=== PATIENT | female | born 1960 | race Caucasian/White ===

== ENCOUNTER 2018-01-12 07:25 | Day surgery (SDC) | payer BC, SELFPAY ==
[2018-01-12 07:37] VITALS: BP 115/82; PULSE 74; RESP 14; TEMP 35.9; O2SAT 100; BMI 21.0
--- NOTE | 2018-01-12 08:26 | PCM.OPRPT ---
Problem List (1) Chronic anemia Status: Chronic (2) Peptic ulcer disease Status: Chronic (3) Acute blood loss anemia Status: Acute Report of Operation Date of Procedure: 01/12/18 Pre-Operative Diagnosis: D 64.9 chronic anemia. K 27.9 peptic ulcer disease. D 62 anemia due to blood loss Post-Operative Diagnosis: Same Surgery/Procedure Performed:: 02104 esophagogastrojejunoscopy Type of Anesthesia:: MAC Anesthesiologist: Dev He Description of Procedure: Patient was brought into the endoscopy suite. Back of her throat was sprayed with Cetacaine spray. A bite-block was placed. She was placed in the left lateral decubitus position. She was given graded anesthesia. The scope was inserted into the oropharynx. It was directed down through the esophagusInto the stomach remnant and into both the afferent and efferent limbs of the jejunum. Operative findings: 1. Jejunum: Both limbs of the jejunum appeared normal there were no signs of any mass lesions no signs of ulcerations no signs of any bleeding. 2. Stomach the juncture between the jejunum and stomach all look normal. There was no signs of any marginal ulcers. There were no mass lesions. There is no signs of any recent bleeding. The rest of the stomach remnant all look normal. 3. Esophagus: Normal appearance no mass lesions no ulcerations no signs of erythema. No signs of recurrent marginal ulcers or masslike lesions. Patient is to continue her current proton pump therapy. - Admit VTE Documentation VTE Present on Admission: No VTE Mechan Device Prophylaxis: None VTE Pharm Prophylaxis ordered?: No Reason prophylaxis not ordered:: Treatment Not Indicated
[2018-01-12 08:45] VITALS: BP 115/80; BP 115/82; PULSE 66; RESP 17; TEMP 36.9; O2SAT 98
[2018-01-12 08:50] VITALS: BP 115/82; BP 120/74; PULSE 72; RESP 16; O2SAT 99
[2018-01-12 08:55] VITALS: BP 104/72; BP 115/82; PULSE 59; RESP 16; O2SAT 100
[2018-01-12 09:00] VITALS: BP 105/72; BP 115/82; PULSE 72; RESP 16; TEMP 36.3; O2SAT 68
[2018-01-12 09:15] VITALS: BP 115/82
== END 2018-01-12 09:24 | disposition home or self-care (01) ==
LOC: EN 07:26 → AC 07:26
PROVIDERS: Family Provider Family Medicine; PCP Family Medicine; Visit Provider Surgery
PROC: 0DJ08ZZ Inspection of Upper Intestinal Tract, Via Natural or Artificial Opening Endoscopic (ICD-10-PCS; CPT 43235; principal; 2018-01-12 08:25)
DX: D64.9 Anemia, unspecified (principal); K27.9 Peptic ulcer, site unspecified, unspecified as acute or chronic, without hemorrhage or perforation; D62 Acute posthemorrhagic anemia; I10 Essential (primary) hypertension; K21.9 Gastro-esophageal reflux disease without esophagitis; H40.9 Unspecified glaucoma; F41.9 Anxiety disorder, unspecified; E03.9 Hypothyroidism, unspecified; G43.909 Migraine, unspecified, not intractable, without status migrainosus
CPT/HCPCS: 43235; J7120

== ENCOUNTER 2018-05-15 03:39 | Emergency (ER) | payer BC, SELFPAY ==
[2018-05-15 03:40] VITALS: BP 151/100; PULSE 84; RESP 16; TEMP 36.5; O2SAT 100; BMI 22.4
--- NOTE | 2018-05-15 03:50 | ED.VISSUMM ---
- ER Visit Summary Date of Service: 05/15/18 Chief Complaint: Migraine headache History of Present Illness: The patient is a 57 F waxing waning migraine headache for the past 3 evenings. Pain frontal and occipital, photo and phonophobia. Nausea with dry heaves. History of similar. She is on Maxalt as needed. States last 2 evenings used up to 2 with resolution however this evening had one left did not help. No head injuries. No fevers. No more stress than normal. States has been given Imitrex subcutaneous with improvement in the past. History of gastric bypass with GI ulcers. Physical Examination: General: Alert and oriented ?3, mild distress HEENT: Normocephalic, atraumatic. Moist mucosa membranes. Mild photophobia. Pupils equal reactive to light. Extraocular muscles intact. Neck: supple, nontender. No meningismus. Cardiovascular: Regular rate and rhythm, no murmurs Respiratory: Normal breath sounds, symmetric, no distress Abdomen: Soft, nontender, nondistended Extremities: Nontender, no edema, pulses intact ?4 Neuro: no focal neurological deficits. Test Results: [] Emergency Department Course and Treatment: Patient no focal neurologic deficits. No meningismus. Similar headaches in the past. Tried Imitrex subcu, only mild relief of symptoms. IV is placed, Reglan, Benadryl with IV fluids. Symptoms much more improved and tolerable. Patient discharged home with outpatient follow-up. Short refill for Maxalt was written. Treatment Plan: [] Disposition: Discharge Impression: Migraine headache This note was generated with [employer] dictation software. It may contain incorrect words, spelling, and punctuation that were not noted in review of the chart prior to signing ED Disposition - Plan for ED Patient: Disposition: Home or Assisted Living Chief Complaint: Headache Diagnosis: Migraine Instructions: ED Headache Migraine Prescriptions: Rizatriptan Benzoate [Maxalt] 10 mg PO .X1 PRN #6 tablet Referrals: Angelo Ruggiero MD [Primary Care Provider] - 3-5 Days
[2018-05-15] MEDS: SUMAtriptan 6 MG/0.5 ML Vial SC (03:55)
[2018-05-15] MEDS: 0.9% Normal Saline 1,000 ML 999 ML IV (04:27)
[2018-05-15] MEDS: Metoclopramide 10 MG/2 ML Vial IV (04:27)
[2018-05-15] MEDS: DiphenhydrAMINE 50 MG/ML Syringe 25 MG IV (04:28)
[2018-05-15 05:18] VITALS: BP 123/86; PULSE 81; RESP 16; O2SAT 99
== END 2018-05-15 05:22 | disposition home or self-care (01) ==
PROVIDERS: Emergency Provider Emergency Medicine; Family Provider Family Medicine; PCP Family Medicine
DX: G43.909 Migraine, unspecified, not intractable, without status migrainosus (principal); E03.9 Hypothyroidism, unspecified; K21.9 Gastro-esophageal reflux disease without esophagitis; Z79.899 Other long term (current) drug therapy; Z87.11 Personal history of peptic ulcer disease; Z86.2 Personal history of diseases of the blood and blood-forming organs and certain disorders involving the immune mechanism; Z98.84 Bariatric surgery status
CPT/HCPCS: 96361; 96372; 96374; 96375; 99282; J7030; A4216; J3030

== ENCOUNTER → 2019-05-09 12:15 | Outpatient (CLI) | payer BC, SELFPAY ==
[2019-05-09 13:00] LABS: Erythrocyte Sedimentation Rate 1 mm/hr (0-30)
== END ==
PROVIDERS: Family Provider Family Medicine; PCP Family Medicine; Referring Provider Psychiatry & Neurology Neurology; Visit Provider Psychiatry & Neurology Neurology
DX: R51 Headache (principal)
CPT/HCPCS: 36415; 85652

== ENCOUNTER → 2019-06-16 08:47 | Outpatient (CLI) | payer BC, SELFPAY ==
--- NOTE | 2019-06-16 08:55 | CDU_ITS ---
Reason For Study: RETINAL/VASCULAR OCCLUSION Rt. Velocities/BP Lt. Velocities/BP Prox CCA 54/10 cm/sec. Prox CCA 71/20 cm/sec. Mid CCA 62/20 cm/sec. Mid CCA 76/27 cm/sec. Dist CCA 54/21 cm/sec. Dist CCA 72/24 cm/sec. Prox ICA 74/30 cm/sec. Prox ICA 79/35 cm/sec. Mid ICA 91/40 cm/sec. Mid ICA 75/36 cm/sec. Dist ICA 85/37 cm/sec. Dist ICA 42/18 cm/sec. Rt. ICA/CCA = 1.5. Lt. ICA/CCA = 1.0. Prox ECA 52/12 cm/sec. Prox ECA 47/9 cm/sec. Rt. Vert. 38/15 cm/sec. Lt. Vert. 46/15 cm/sec. Right Extracranial There is intimal thickening but no significant atherosclerotic plaque noted in the right common carotid artery. There is homogeneous, smooth atherosclerotic plaque noted in the right internal carotid artery. There is homogeneous, smooth atherosclerotic plaque noted in the right external carotid artery. Antegrade flow is noted in the right vertebral artery. Left Extracranial There is homogeneous, smooth atherosclerotic plaque noted in the left common carotid artery. There is homogeneous, smooth atherosclerotic plaque noted in the left internal carotid artery. There is homogeneous, smooth atherosclerotic plaque noted in the left external carotid artery. Antegrade flow is noted in the left vertebral artery. Procedure Carotid Duplex [id number]. Exam performed in department. Interpretation Summary Mild (<50%) stenosis right extracranial internal carotid. Mild (<50%) stenosis left extracranial internal carotid. Flow within the vertebral arteries is antegrade bilaterally. Ordering Physician: Michael Tellez Referring Physician: EUGENE SANCHEZ Performed By: Karol Leger, ZAN, RVT
== END ==
PROVIDERS: Family Provider Family Medicine; PCP Family Medicine; Referring Provider Ophthalmology; Visit Provider Ophthalmology
DX: H34.9 Unspecified retinal vascular occlusion (principal)
CPT/HCPCS: 93880

== ENCOUNTER → 2019-06-19 06:25 | Outpatient (CLI) | payer BC, SELFPAY ==
--- NOTE | 2019-06-19 06:35 | MRI_ITS ---
STUDY: MRI BRAIN WITHOUT CONTRAST REASON FOR EXAM: Female, 58 years old. Increasing frequency and severity of headaches. TECHNIQUE: Standardized multiplanar fat and water weighted pulse sequences were obtained. COMPARISON: 09/07/2008. FINDINGS: Normal size of the ventricles and extra-axial spaces for the patient's age. Normal white matter tracts of the supratentorial brain. Normal bilateral basal ganglia. Normal thalami. There is no extra-axial fluid accumulation. Normal flow voids within the major intracranial circulation suggesting patency by spin echo criteria. Normal sella turcica, pituitary gland, infundibular stalk, optic chiasm and hypothalamus. Normal tectal plate and pineal gland. Normal midbrain, pema and medulla. Normal cerebellum. Normal basal cisterns. Normal bilateral temporal bones. Normal bilateral internal auditory canals. No demonstrated orbital abnormality, within the constraints of a routine brain study. Normal visualized paranasal sinuses. Normal calvarium and skull base. Normal visualized soft tissue structures. Normal visualized upper cervical spine. MRI/Brain without Contrast IMPRESSION: Normal unenhanced MRI of the brain and unchanged since 09/07/2008. Electronically Signed: Ramon Vo MD at 10:22 EST , Service support ,
== END ==
PROVIDERS: Family Provider Family Medicine; PCP Family Medicine; Referring Provider Psychiatry & Neurology Neurology; Visit Provider Psychiatry & Neurology Neurology
DX: R51 Headache (principal)
CPT/HCPCS: 70551

== ENCOUNTER → 2019-06-22 13:45 | Outpatient (CLI) | payer BC, SELFPAY ==
--- NOTE | 2019-06-22 13:51 | ECHOD_ITS ---
Reason For Study: UNSPECIFIED RETINAL VASCULAR OCCLUSION Procedure This was a 2D Doppler, Color Flow transthoracic echocardiogram. Exam performed in department. Left Ventricle Normal LV size. The estimated ejection fraction is 55 %. No evidence for diastolic dysfunction. No regional wall motion abnormalities noted. Right Ventricle Normal RV size. Normal systolic function. Atria The left atrium is mildly enlarged. Normal right atrium. Bubble contrast study negative for right to left interatrial shunt. Mitral Valve There is no mitral valve stenosis. Trivial mitral valve insufficiency. Tricuspid Valve There is no tricuspid stenosis. Trivial tricuspid valve insufficiency. Normal pulmonary artery pressure. Aortic Valve Trisinus/trileaflet aortic valve. There is no aortic stenosis. Trivial aortic valve insufficiency. Pulmonic Valve There is no pulmonic valvular stenosis. No pulmonic valve insufficiency. Great Vessels Normal aortic root. Pericardium/Pleural No pericardial effusion. Medication 22 gauge I.V. with prn adaptor inserted into right arm. Performed a rapid injection of agitated mix of 9 cc saline and 1cc air to assess for atrial septal defect. MMode/2D Measurements & Calculations LVIDd: 4.8 cm IVSd: 1.1 cm LVOT diam: 2.0 cm LVIDs: 2.9 cm LVPWd: 0.99 cm RVDd: 2.8 cm FS: 38.5 % LVOT area: 3.0 cm2 Ao root diam: 3.4 cm LAV(MOD-bp): 62.2 ml LA A4 area: 16.9 cm2 LAV(MOD-bp) Indexed: 38.6 ml/m2 LAV(MOD-sp2): 59.1 ml LAV(MOD-sp4): 51.9 ml LA dimension(2D): 3.7 cm RA A4 area: 9.7 cm2 Time Measurements MV dec time: 0.18 sec Doppler Measurements & Calculations MV E max joe: 88.2 cm/sec Lat Peak E' Joe: 8.2 cm/sec Med Peak E' Joe: 5.6 cm/sec MV A max joe: 64.5 cm/sec E/E' lat: 10.8 E/E' med: 15.9 MV E/A: 1.4 Ao V2 max: 113.8 cm/sec LV V1 max: 86.2 cm/sec SV(LVOT): 56.1 ml Ao max P.2 mmHg LV V1 max P.0 mmHg Ao V2 mean: 82.4 cm/sec LV V1 mean P.6 mmHg Ao mean P.0 mmHg LV V1 mean: 60.9 cm/sec Ao V2 VTI: 23.9 cm LV V1 VTI: 18.6 cm MAXWELL(I,D): 2.3 cm2 MAXWELL(V,D): 2.3 cm2 PA V2 max: 71.8 cm/sec TR max joe: 240.1 cm/sec TR max P.1 mmHg Interpretation Summary The estimated ejection fraction is 55 %. No evidence for diastolic dysfunction. Trivial aortic valve insufficiency. Trivial mitral valve insufficiency. Bubble contrast study negative for right to left interatrial shunt. Ordering Physician: Michael Tellez Referring Physician: Timoteo Ruggiero Performed By: Elva Murrieta RDCS, RVT
== END ==
PROVIDERS: Family Provider Family Medicine; PCP Family Medicine; Referring Provider Ophthalmology; Visit Provider Ophthalmology
DX: H34.9 Unspecified retinal vascular occlusion (principal)
CPT/HCPCS: 93306; A4216

== ENCOUNTER → 2019-07-26 11:37 | Outpatient (CLI) | payer BC, SELFPAY ==
[2019-07-26 08:36] VITALS: BMI 23.7
== END ==
PROVIDERS: Family Provider Family Medicine; PCP Family Medicine; Referring Provider Internal Medicine Cardiovascular Disease; Visit Provider Internal Medicine Cardiovascular Disease
DX: H34.83 Tributary (branch) retinal vein occlusion (principal)
CPT/HCPCS: 93225; 93226

== ENCOUNTER 2020-03-01 07:00 | Outpatient (RCR) | payer BC, SELFPAY ==
[2019-07-26 08:36] VITALS: BMI 23.7
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
--- NOTE | 2019-11-30 10:58 | HP.PTREVAL ---
ARTURO BOYCE, It has been my pleasure to treat TOMAS Anthony OLDER over the last 9 visits for R femur fracture.. Please see the progress note below for an update on the physical therapy plan of care! Subjective: New script received for TTWB on 12/28/19 and strenthening against gravity. Doing gym workout starting at 0930 I today. Ambulating with wh walker mod I at home, steps with husbands supervision limited with crutch adn rail but not confident yet. Objective/Function: 104/107 A/PROM R knee. Full extension. 2 degree lag with SLR. Walking with walker NWB R. steps with one crutcha dn one railing today NWB R per doctor order with SBA for safety. 4-/5 hip strength today R hip and 4/5 L. Patella moving better with some distal limitations vs L and very little palpable scar tissue under multiple incisions.pT DOING WELL AND PROGRESSING TO SATISFACTION LIMITED CURRENTLY BY wb RESTRICTIONS. Plan Plan: 2x/week for 4 weeks for continued manual therapy for PROM, ROM progressions and ensure progression of home strength and gym strength until restrictions of NWB removed 12/27 to TTWB. Goals still appropriate, fair prognosis Goals Goal 1:: R knee AROM 0-115 without excessive pain. Goal Time Frame: 4-6 Weeks Goal Progress: Progressing,a pprop Goal 2:: I LE strength adn UE strength ex via HEP Goal Time Frame: 4-6 Weeks Goal Progress: NWB met Goal 3:: Patient able to be mobile through house including steps safe and I with in restirctions. Goal Time Frame: 4-6 Weeks Goal Progress: met except steps Goal 4:: Pt able to ambulate I without gait deviations once allowed by surgeon. Goal Time Frame: 12-16 Weeks Goal Progress: approp Goal 5:: Steps reciprocally withotu rail. Goal Time Frame: 12-16 Weeks Goal Progress: restircted. Goal 6:: Pt feel 50% improved Goal Time Frame: 4-6 Weeks Goal Progress: Progressing Anticipated Interventions Patient/Client Instruction: Educate patient on: Condition, Plan of Care For the Purpose of:: To decrease pain, To improve muscle performance and motor function, To improve ability of physical actions for home/community/work/leisure Therapeutic Exercise to Include: Strength training, Coordination, Postural training, Flexibilty training, Gait and locomotor training, Neuromotor development, Passive ROM, Active ROM, Dynamic Lumbar Stabilization For the Purpose of:: To decrease pain, To increase ROM, To improve muscle performance and motor function, To increase tolerance to activity/condition/position, To improve ability of physical actions for home/community/work/leisure, To improve gait and locomotor functions, To improve safety Manual Therapy Techniques to Include: Petrissage, Scar massage, Mobilization, Passive ROM, Soft tissue mobilization For the Purpose of:: To decrease pain, To increase ROM, To improve muscle performance and motor function, To increase tolerance to activity/condition/position Cryotherapy (ice pack, ice massage): Yes For the Purpose of:: To decrease pain, To decrease swelling/inflammation Please do not hesitate to contact me at [phone] by phone or if you have questions or concerns regarding this new plan of care! Sincerely, Hussein Lund, DPT, OCS, CSCS
--- NOTE | 2019-12-12 11:05 | HP.PTREVAL_ITS ---
ARTURO BOYCE, It has been my pleasure to treat TOMAS Anthony OLDER over the last 12 visits for R femur fracture.. Please see the progress note below for an update on the physical therapy plan of care! Subjective: gym closed due to floor cleaning. 2/10 pain normal today but was outside a lot yesterday. Objective/Function: 0-115 AROM R knee, PROM 0-118 degrees. Walking better with crutches SBA one lap today without problems. Steps with SBA today. Does not quite have the confidence to use crutches on own but improving. Mod I with wa lker. Overall patient will not be TTWB until December 28 according to script. Needs to gain more motion and continue to improve strength until WB is allowed. Progressing nicely. Appropriate for more visits. Plan Plan: 2x/week x 4-6 weeks for gait progression as allowed, continued ROM.manual until full ROM R knee and strengthen as allowed by doctors orders. Goals Goal 1:: R knee AROM 0-115 without excessive pain. Goal Time Frame: 4-6 Weeks Goal Progress: Progressing,a pprop Goal 2:: I LE strength adn UE strength ex via HEP Goal Time Frame: 4-6 Weeks Goal Progress: NWB met Goal 3:: Patient able to be mobile through house including steps safe and I with in restirctions. Goal Time Frame: 4-6 Weeks Goal Progress: met except steps Goal 4:: Pt able to ambulate I without gait deviations once allowed by surgeon. Goal Time Frame: 12-16 Weeks Goal Progress: approp Goal 5:: Steps reciprocally withotu rail. Goal Time Frame: 12-16 Weeks Goal Progress: restircted. Goal 6:: Pt feel 50% improved Goal Time Frame: 4-6 Weeks Goal Progress: Progressing Anticipated Interventions Patient/Client Instruction: Educate patient on: Condition, Plan of Care For the Purpose of:: To decrease pain, To improve muscle performance and motor function, To improve ability of physical actions for home/community/work/leisure Therapeutic Exercise to Include: Strength training, Coordination, Postural training, Flexibilty training, Gait and locomotor training, Neuromotor development, Passive ROM, Active ROM, Dynamic Lumbar Stabilization For the Purpose of:: To decrease pain, To increase ROM, To improve muscle performance and motor function, To increase tolerance to activity/condition/position, To improve ability of physical actions for home/community/work/leisure, To improve gait and locomotor functions, To improve safety Manual Therapy Techniques to Include: Petrissage, Scar massage, Mobilization, Passive ROM, Soft tissue mobilization For the Purpose of:: To decrease pain, To increase ROM, To improve muscle performance and motor function, To increase tolerance to activity/condition/position Cryotherapy (ice pack, ice massage): Yes For the Purpose of:: To decrease pain, To decrease swelling/inflammation Please do not hesitate to contact me at [phone] by phone or if you have questions or concerns regarding this new plan of care! Sincerely, Hussein Lund, DPT, OCS, CSCS
--- NOTE | 2019-12-21 10:16 | HP.PTREVAL ---
ARTURO BOYCE, It has been my pleasure to treat TOMAS Anthony OLDER over the last 14 visits for R femur fracture.. Please see the progress note below for an update on the physical therapy plan of care! Subjective: Slightly more sore than usual at 4/10 medially at knee since last visit. Otherwise doing well, still NWB with walker. Using crutches mostly int herapy. Scooting up steps when needed at home as she is not confident with the crutches on steps or walking at home yet. Objective/Function: Intermittent LOB when walking with crutches and on steps is what is limiting her, mostly she is CGA but intermittent lapses make it Min A due to LOB. Transfers at table are I. AROM 0-117 coming in today and PROM to 123. Strength is 4- flexion adn 3+ ext. Plan Plan: continue 2x/week as pt will ba allowed to TTWB next week and progress gait and WB exercises at that time. Fair prognosis, goals appropriate adn will be updated when TTWB begins. Goals Goal 1:: R knee AROM 0-115 without excessive pain. Goal Time Frame: 4-6 Weeks Goal Progress: Goal Met Goal 2:: I LE strength adn UE strength ex via HEP Goal Time Frame: 4-6 Weeks Goal Progress: NWB met Goal 3:: Patient able to be mobile through house including steps safe and I with in restirctions. Goal Time Frame: 4-6 Weeks Goal Progress: wh walker Goal 4:: Pt able to ambulate I without gait deviations once allowed by surgeon. Goal Time Frame: 12-16 Weeks Goal Progress: soon Goal 5:: Steps reciprocally withotu rail. Goal Time Frame: 12-16 Weeks Goal Progress: restircted. Goal 6:: Pt feel 50% improved Goal Time Frame: 4-6 Weeks Goal Progress: Progressing Anticipated Interventions Patient/Client Instruction: Educate patient on: Condition, Plan of Care For the Purpose of:: To decrease pain, To improve muscle performance and motor function, To improve ability of physical actions for home/community/work/leisure Therapeutic Exercise to Include: Strength training, Coordination, Postural training, Flexibilty training, Gait and locomotor training, Neuromotor development, Passive ROM, Active ROM, Dynamic Lumbar Stabilization For the Purpose of:: To decrease pain, To increase ROM, To improve muscle performance and motor function, To increase tolerance to activity/condition/position, To improve ability of physical actions for home/community/work/leisure, To improve gait and locomotor functions, To improve safety Manual Therapy Techniques to Include: Petrissage, Scar massage, Mobilization, Passive ROM, Soft tissue mobilization For the Purpose of:: To decrease pain, To increase ROM, To improve muscle performance and motor function, To increase tolerance to activity/condition/position Cryotherapy (ice pack, ice massage): Yes For the Purpose of:: To decrease pain, To decrease swelling/inflammation Please do not hesitate to contact me at [phone] by phone or if you have questions or concerns regarding this new plan of care! Sincerely, Hussein Lund, DPT, OCS, CSCS
--- NOTE | 2020-01-05 10:59 | HP.PTREVAL ---
ARTURO BOYCE, It has been my pleasure to treat TOMAS Anthony OLDER over the last 16 visits for R femur fracture.. Please see the progress note below for an update on the physical therapy plan of care! Subjective: Doing OK with pain at 08/25 today. ES helped last time. saw doctor and has been released to WBAT based on symptoms. Has been walking with crutches at home for the most part outside and away and walker still in house. Happy with progress but has long way to go with progressing WB. Objective/Function: AROM R knee 0-124 todaya dn continues to improve with AROM. Able to do LAQ easily and SLR with only slight lag. Progressed today per doctor recommendation to her to WBAT with crutches and used one crutch today needing SBA- CGA. Trasnfers I. using two crutches PWB R easily and mod I today. Steps with one crutch adn rail using L SBA today. I bed trasnfers. Scars healing well at this point. OVERALL GOOD SLOW STEADY PROGRESSION LIMITED AT THIS POINT DUE TO DOCTORS LIMITATIONS. APPROPRIATE TO CONTINUE TOWARED fwb SAFETY WITH FAIR PROGNOSIS. MANY MORE EXERCISES APPRORIATE NOW THAT SHE IS wbat. Plan Plan: [id number]/WEEK TO SUPPLEMENT 3X WEEK I GYM WORKOUT FOR GAIT PROGRESSION, STRENGTH PROGRESSION PER TOLERANCE, AND ROM CHECKS. Goals Goal 1:: R knee AROM 0-115 without excessive pain. Goal Time Frame: 4-6 Weeks Goal Progress: Goal Met Goal 2:: I LE strength adn UE strength ex via HEP Goal Time Frame: 4-6 Weeks Goal Progress: NWB met, MORE APPROP Goal 3:: Patient able to be mobile through house including steps safe and I with in restirctions. Goal Time Frame: 4-6 Weeks Goal Progress: Goal Met WITH CRUTCHES Goal 4:: Pt able to ambulate I without gait deviations once allowed by surgeon. Goal Time Frame: 12-16 Weeks Goal Progress: soon Goal 5:: Steps reciprocally withotu rail. Goal Time Frame: 12-16 Weeks Goal Progress: NEEDS RAIL Goal 6:: Pt feel 50% improved Goal Time Frame: 4-6 Weeks Goal Progress: Goal Met Anticipated Interventions Patient/Client Instruction: Educate patient on: Condition, Plan of Care For the Purpose of:: To decrease pain, To improve muscle performance and motor function, To improve ability of physical actions for home/community/work/leisure Therapeutic Exercise to Include: Strength training, Coordination, Postural training, Flexibilty training, Gait and locomotor training, Neuromotor development, Passive ROM, Active ROM, Dynamic Lumbar Stabilization For the Purpose of:: To decrease pain, To increase ROM, To improve muscle performance and motor function, To increase tolerance to activity/condition/position, To improve ability of physical actions for home/community/work/leisure, To improve gait and locomotor functions, To improve safety Manual Therapy Techniques to Include: Petrissage, Scar massage, Mobilization, Passive ROM, Soft tissue mobilization For the Purpose of:: To decrease pain, To increase ROM, To improve muscle performance and motor function, To increase tolerance to activity/condition/position Cryotherapy (ice pack, ice massage): Yes For the Purpose of:: To decrease pain, To decrease swelling/inflammation Please do not hesitate to contact me at [phone] by phone or if you have questions or concerns regarding this new plan of care! Sincerely, Hussein Lund, DPT, OCS, CSCS
--- NOTE | 2020-01-19 08:03 | HP.PTREVAL_ITS ---
ARTURO BOYCE, It has been my pleasure to treat TOMAS Anthony OLDER over the last 20 visits for R femur fracture.. Please see the progress note below for an update on the physical therapy plan of care! Subjective: Was 6-8/10 pain yesterday , not sure why! Went back to two crutches and continues that today although pain is back down to 2-3/10. Was in lateral leg and front of knee. Objective/Function: One instance of knee giving out todday slightly when walking. Otherwise did well. Needs railing on steps due to weakness and poor confidence in R LE. Pain slightly worse today so backed off on WB ex adn educated to do so at home also for the weekend. Appropriate to continue for safety and progression of gait and execises until FWB without problems functionally. 0-122 AROM immediately today. Weak quad contraction on R but no lag with SLR Plan Plan: Cotninue 2x/week for gait and ex progression WB as tolerated. Goals Goal 1:: R knee AROM 0-115 without excessive pain. Goal Time Frame: 4-6 Weeks Goal Progress: Goal Met Goal 2:: I LE strength adn UE strength ex via HEP Goal Time Frame: 4-6 Weeks Goal Progress: needs assist for WB ex Goal 3:: Patient able to be mobile through house including steps safe and I with in restirctions. Goal Time Frame: 4-6 Weeks Goal Progress: Goal Met WITH one crutch Goal 4:: Pt able to ambulate I without gait deviations once allowed by surgeon. Goal Time Frame: 12-16 Weeks Goal Progress: Progressing Goal 5:: Steps reciprocally withotu rail. Goal Time Frame: 12-16 Weeks Goal Progress: needs rail due to weak Goal 6:: Pt feel 50% improved Goal Time Frame: 4-6 Weeks Goal Progress: Goal Met Anticipated Interventions Patient/Client Instruction: Educate patient on: Condition, Plan of Care For the Purpose of:: To decrease pain, To improve muscle performance and motor function, To improve ability of physical actions for home/community/work/leisure Therapeutic Exercise to Include: Strength training, Coordination, Postural training, Flexibilty training, Gait and locomotor training, Neuromotor development, Passive ROM, Active ROM, Dynamic Lumbar Stabilization For the Purpose of:: To decrease pain, To increase ROM, To improve muscle performance and motor function, To increase tolerance to activity/condition/position, To improve ability of physical actions for home/co mmunity/work/leisure, To improve gait and locomotor functions, To improve safety Manual Therapy Techniques to Include: Petrissage, Scar massage, Mobilization, Passive ROM, Soft tissue mobilization For the Purpose of:: To decrease pain, To increase ROM, To improve muscle performance and motor function, To increase tolerance to activity/condition/pos ition Cryotherapy (ice pack, ice massage): Yes For the Purpose of:: To decrease pain, To decrease swelling/inflammation Please do not hesitate to contact me at [phone] by phone or if you have questions or concerns regarding this new plan of care! Sincerely, Hussein Lund, DPT, OCS, CSCS
--- NOTE | 2020-02-12 07:43 | HP.PTREVAL ---
ARTURO BOYCE, It has been my pleasure to treat TOMAS Anthony OLDER over the last 26 visits for R femur fracture.. Please see the progress note below for an update on the physical therapy plan of care! Subjective: Doing OK, 2/10 stabbing pain L mid femur with some WB, 2/10 anterior knee pain have been major complaints consistently. Taht pain gets up to 6/10 later in day and she has to get off of it. she admittedly overdoes things and is working in the yard excessively. Walking without AD for the most part at [place] but needs it later in day. Avoids steps to get up to bedroom mostly becasue it is more convenient now and will start back upstairs after seeing doctor on . Objective/Function: Steps reciprocally albeit slow and some noticeable weakness R but can ascend and descend without rail. Walks well with good knee flexiona nd no giving out outdoors with direction turns and on gravel easily without hesitation today, someintermittent antalgia noticeable but rare. Strength in knee is 4/5 flex and ext, ankle is 4+ adn hip is 4/5 on R. AROM is 0-124. Overall doing well and will f/u with doctor later in week and continue strength in gym adn home stretching. Plan Plan: f/u 2 weeks to monitor doctors recommendations and ensure progress. Goals Goal 1:: R knee AROM 0-115 without excessive pain. Goal Time Frame: 4-6 Weeks Goal Progress: Goal Met Goal 2:: I LE strength adn UE strength ex via HEP Goal Time Frame: 4-6 Weeks Goal Progress: Goal Met Goal 3:: Patient able to be mobile through house including steps safe and I with in restirctions. Goal Time Frame: 4-6 Weeks Goal Progress: met am but hurts pm Goal 4:: Pt able to ambulate I without gait deviations once allowed by surgeon. Goal Time Frame: 12-16 Weeks Goal Progress: Goal Met Goal 5:: Steps reciprocally withotu rail. Goal Time Frame: 12-16 Weeks Goal Progress: Goal Met Goal 6:: Pt feel 50% improved Goal Time Frame: 4-6 Weeks Goal Progress: Goal Met Anticipated Interventions Patient/Client Instruction: Educate patient on: Condition, Plan of Care For the Purpose of:: To decrease pain, To improve muscle performance and motor function, To improve ability of physical actions for home/community/work/leisure Therapeutic Exercise to Include: Strength training, Coordination, Postural training, Flexibilty training, Gait and locomotor training, Neuromotor development, Passive ROM, Active ROM, Dynamic Lumbar Stabilization For the Purpose of:: To decrease pain, To increase ROM, To improve muscle performance and motor function, To increase tolerance to activity/condition/position, To improve ability of physical actions for home/community/work/leisure, To improve gait and locomotor functions, To improve safety Manual Therapy Techniques to Include: Petrissage, Scar massage, Mobilization, Passive ROM, Soft tissue mobilization For the Purpose of:: To decrease pain, To increase ROM, To improve muscle performance and motor function, To increase tolerance to activity/condition/position Cryotherapy (ice pack, ice massage): Yes For the Purpose of:: To decrease pain, To decrease swelling/inflammation Please do not hesitate to contact me at [phone] by phone or if you have questions or concerns regarding this new plan of care! Sincerely, Hussein Lund, DPT, OCS, CSCS
--- NOTE | 2020-03-01 10:57 | HP.PTREVAL ---
ARTURO BOYCE, It has been my pleasure to treat TOMAS Anthony OLDER over the last 27 visits for R femur fracture.. Please see the progress note below for an update on the physical therapy plan of care! Subjective: Working out. Doctor said waiting to see if bone heels before steel ryan breaks. Back to doctor in two months. Keep doing what she is doing. Objective/Function: 0-125 AROM easily. Pain is still sharp at times upper lateral leg and in ankle. Walks with mild limp on R on stones without difficulty or giving out. Steps are reciprocal without increased pain or need of railing. Overall symptoms not changing for better or for worse, biomechanically doing well but bone not healing and recommend patient continuing ex until doctor f/u unless something changes. Not progressing toward evening pain goal and still has trouble getting around more in evening. Plan Plan: Pt to cotninue ex I and contact me if there is problems, F/u for measurements before surgeon f/u end March. Goals Goal 1:: R knee AROM 0-115 without excessive pain. Goal Time Frame: 4-6 Weeks Goal Progress: Goal Met Goal 2:: I LE strength adn UE strength ex via HEP Goal Time Frame: 4-6 Weeks Goal Progress: Goal Met Goal 3:: Patient able to be mobile through house including steps safe and I with in restirctions. Goal Time Frame: 4-6 Weeks Goal Progress: met am but hurts pm Goal 4:: Pt able to ambulate I without gait deviations once allowed by surgeon. Goal Time Frame: 12-16 Weeks Goal Progress: Goal Met Goal 5:: Steps reciprocally withotu rail. Goal Time Frame: 12-16 Weeks Goal Progress: Goal Met Goal 6:: Pt feel 50% improved Goal Time Frame: 4-6 Weeks Goal Progress: Goal Met Anticipated Interventions Patient/Client Instruction: Educate patient on: Condition, Plan of Care For the Purpose of:: To decrease pain, To improve muscle performance and motor function, To improve ability of physical actions for home/community/work/leisure Therapeutic Exercise to Include: Strength training, Coordination, Postural training, Flexibilty training, Gait and locomotor training, Neuromotor development, Passive ROM, Active ROM, Dynamic Lumbar Stabilization For the Purpose of:: To decrease pain, To increase ROM, To improve muscle performance and motor function, To increase tolerance to activity/condition/position, To improve ability of physical actions for home/community/work/leisure, To improve gait and locomotor functions, To improve safety Manual Therapy Techniques to Include: Petrissage, Scar massage, Mobilization, Passive ROM, Soft tissue mobilization For the Purpose of:: To decrease pain, To increase ROM, To improve muscle performance and motor function, To increase tolerance to activity/condition/position Cryotherapy (ice pack, ice massage): Yes For the Purpose of:: To decrease pain, To decrease swelling/inflammation Please do not hesitate to contact me at [phone] by phone or if you have questions or concerns regarding this new plan of care! Sincerely, Hussein Lund, DPT, OCS, CSCS
--- NOTE | 2020-05-07 09:52 | HP.PTDCNRP_ITS ---
TOMAS BONILLA was seen in my office for initial evaluation on 10/30/19. The following Plan of Care was established for this patient: Initial Frequency: 3x /Week Initial Duration: 4-6 Weeks Patient/Client Instruction: Educate patient on: Condition, Plan of Care For the Purpose of:: To decrease pain, To improve muscle performance and motor function, To improve ability of physical actions for home/community/work/leisure Therapeutic Exercise to Include: Strength training, Coordination, Postural training, Flexibilty training, Gait and locomotor training, Neuromotor development, Passive ROM, Active ROM, Dynamic Lumbar Stabilization For the Purpose of:: To decrease pain, To increase ROM, To improve muscle performance and motor function, To increase tolerance to activity/condition/position, To improve ability of physical actions for home/community/work/leisure, To improve gait and locomotor functions, To improve safety Manual Therapy Techniques to Include: Petrissage, Scar massage, Mobilization, Pa ssive ROM, Soft tissue mobilization For the Purpose of:: To decrease pain, To increase ROM, To improve muscle performance and motor function, To increase tolerance to activity /condition/position Cryotherapy (ice pack, ice massage): Yes For the Purpose of:: To decrease pain, To decrease swelling/inflammation This patient was last seen in our office 03/01/20. Pertinent comments regarding their Physical therapy will appear below: Pt seen for 27 visits of POC. Since last session had returned to doctor and fo und that her bone was not healing and needed another surgery. Will discontinue current chart at this point and see david if ordered. At this point I will be discontinuing this patient from physical therapy. I would be happy to see this patient again in the future if found appropriate by the physician. Thank you! Hussein Lund, DPT, OCS, CSCS
== END 2020-03-01 17:00 | disposition home or self-care (01) ==
LOC: PT 07:00
PROVIDERS: PCP Family Medicine
DX: S72.141D Displaced intertrochanteric fracture of right femur, subsequent encounter for closed fracture with routine healing (principal); S72.461D Displaced supracondylar fracture with intracondylar extension of lower end of right femur, subsequent encounter for closed fracture with routine healing
CPT/HCPCS: 97014; 97110; 97116; 97140; 97162; G0283

== ENCOUNTER → 2020-05-15 12:49 | Outpatient (CLI) | payer BC, SELFPAY ==
[2019-07-26 08:36] VITALS: BMI 23.7
[2020-05-15 13:21] LABS: Anion Gap 6 (5-15); BUN 19 mg/dL (7-18); BUN/Creat Ratio 15.7 RATIO (10-20); Calcium,Total 8.5 mg/dL (8.5-10.1); Chloride 113 mmol/L (98-107); Creatinine, Serum 1.21 mg/dL (0.55-1.02); EST Glomerular Filtration Rate 48 mL/min (>60); Est Glom Filt Rate - Afr Amer 58 mL/min (>60); Glucose 184 mg/dL (74-106); Potassium 3.6 mmol/L (3.5-5.1); Sodium Level 142 mmol/L (136-145)
== END ==
PROVIDERS: PCP Family Medicine; Referring Provider Internal Medicine Nephrology; Visit Provider Internal Medicine Nephrology
DX: N17.9 Acute kidney failure, unspecified (principal)
CPT/HCPCS: 80048

== ENCOUNTER 2020-10-28 07:00 | Outpatient (RCR) | payer BC, SELFPAY ==
[2019-07-26 08:36] VITALS: BMI 23.7
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
--- NOTE | 2020-07-10 10:58 | HP.PTREVAL ---
ARTURO BOYCE, It has been my pleasure to treat TOMAS BONILLA over the last 4 visits for suproacondylar femur fx R s/p ryan. Please see the progress note below for an update on the physical therapy plan of care! Subjective: WBAT order since yesterday. Pain level is not bad. R knee 3/10, upper leg 1/10. X rayed it and it is healing. Sleeping is good on ambien. Has been doing SLR, clmshells and bridges doing [id number] close to daily. Activities at house getting close to normal. Walking up steps to sleep. Carries crutch outdoors for the last week as she was WBAT for the last week on her own. Does't feel like she is avoiding much. Doing steps only with L leg though. Not squatting. Is 12 weeks out. Objective/Function: R hip extension to 5 and L to 10. Cheats on R with pelvic rotation. No toverly swollen today. Knee AROM -2 to 129. Other knee goes to 140. 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 Steps are painful 5/10 with R and pt is to hold off on this for now. Otherwise coming along nicely with strength knee ext R 4- and flexion 4, hip abd/ext, flexion 4+ adn ankle 4+. All without excessive pain. Doing well overall needing some more flexibility i hip flexor, some more ext ROM and to progress WB as symptoms allow. All goals still approp and fair prognosis. Plan Plan: f/u 3 weeks to check gait with hip flexor and quad flexibility, ROM with ext adn flexion. Consider progression to gym, home exercises for strength if doing better with gait and ROM OR increase frequency for STM, ROM, mobs if not improving in hip and knee. Goals Goal 1:: 0-140 AROM R knee with symmetrical quad flexibility Goal Time Frame: 6-8 Weeks Goal Progress: Progressing Goal 2:: R knee strength 4/5 adn hip 4/5 without increased pain Goal Time Frame: 6-8 Weeks Goal Progress: Progressing Goal 3:: Gait without deviations when allowed by doctor without AD> Goal Time Frame: 6-8 Weeks Goal Progress: Progressing Goal 4:: Steps reciprocally without rail or pain Goal Time Frame: 6-8 Weeks Goal Progress: painful still, approp Goal 5:: Pt feel 85% back to normal activitiy Goal Time Frame: 6-8 Weeks Goal Progress: Progressing Goal 6:: Wak normal speed without gait deviations. Goal Time Frame: 4-6 Weeks Goal Progress: NEW GOAL Anticipated Interventions Patient/Client Instruction: Educate patient on: Condition, Plan of Care For the Purpose of:: To decrease pain, To increase ROM, To improve muscle performance and motor function, To increase tolerance to activity/condition/position, To improve ability of physical actions for home/community/work/leisure, To improve gait and locomotor functions Therapeutic Exercise to Include: Strength training, Balance training, Flexibilty training, Gait and locomotor training, Passive ROM, Active ROM For the Purpose of:: To decrease pain, To improve muscle performance and motor function, To increase tolerance to activity/condition/position, To improve ability of physical actions for home/community/work/leisure, To improve gait and locomotor functions Manual Therapy Techniques to Include: Mobilization, Passive ROM, Soft tissue mobilization For the Purpose of:: To increase ROM TENS: Yes Cryotherapy (ice pack, ice massage): Yes For the Purpose of:: To decrease pain Please do not hesitate to contact me at [phone] by phone or if you have questions or concerns regarding this new plan of care! Sincerely, Hussein Lund DPT, OCS, CSCS
--- NOTE | 2020-07-29 07:27 | HP.PTREVAL ---
ARTURO BOYCE, It has been my pleasure to treat TOMAS Anthony OLDER over the last 5 visits for suproacondylar femur fx R s/p ryan. Please see the progress note below for an update on the physical therapy plan of care! Subjective: Pain in donor site adn knee is much of time. 4/10. Sometimes midshaft pain rarely 4/10 and gone quickly. Still has functional deficit around 5:00 pm and harder to get around...mental? Sleeping OK. Doing ROM and stretching exercises nearly daily. Walking without AD. steps are not a big problem. Stil has some antalgia in gait. Hard to get up off floor. To doctor for X ray next week. Objective/Function: -1 degree ext R to 135 flexion, nearly symmetrical with L. quad flexibility is within 2 inches of butt in prone on R and at butt on L. Hip extension is 10 degrees R and 13 L arom. Steps are done without railing and slightly weaker noticeably on R but functional. Trasnfzoie off floor is able with R LE underneath her and support at UE. Gait looks good without excessive pelvic rotation but still has some slight R antalgia. Overal excellent progress. Plan Plan: Pt to doctor next week and clinically coming along excellent. Will have to decide between her, her and doctor if she is ready to strengthen out on machines or via more aggressive home program. She will contact me next week after doctor appointment with her decision and then we will get new POC at f/u visit. Goals Goal 1:: 0-140 AROM R knee with symmetrical quad flexibility Goal Time Frame: 6-8 Weeks Goal Progress: Progressing Goal 2:: R knee strength 4/5 adn hip 4/5 without increased pain Goal Time Frame: 6-8 Weeks Goal Progress: Progressing Goal 3:: Gait without deviations when allowed by doctor without AD> Goal Time Frame: 6-8 Weeks Goal Progress: Goal Met Goal 4:: Steps reciprocally without rail or pain Goal Time Frame: 6-8 Weeks Goal Progress: Goal Met Goal 5:: Pt feel 85% back to normal activitiy Goal Time Frame: 6-8 Weeks Goal Progress: Progressing Goal 6:: Wak normal speed without gait deviations. Goal Time Frame: 4-6 Weeks Goal Progress: Progressing Anticipated Interventions Patient/Client Instruction: Educate patient on: Condition, Plan of Care For the Purpose of:: To decrease pain, To increase ROM, To improve muscle performance and motor function, To increase tolerance to activity/condition/position, To improve ability of physical actions for home/community/work/leisure, To improve gait and locomotor functions Therapeutic Exercise to Include: Strength training, Balance training, Flexibilty training, Gait and locomotor training, Passive ROM, Active ROM For the Purpose of:: To decrease pain, To improve muscle performance and motor function, To increase tolerance to activity/condition/position, To improve ability of physical actions for home/community/work/leisure, To improve gait and locomotor functions Manual Therapy Techniques to Include: Mobilization, Passive ROM, Soft tissue mobilization For the Purpose of:: To increase ROM TENS: Yes Cryotherapy (ice pack, ice massage): Yes For the Purpose of:: To decrease pain Please do not hesitate to contact me at [phone] by phone or if you have questions or concerns regarding this new plan of care! Sincerely, Hussein Lund, DPT, OCS, CSCS
--- NOTE | 2020-08-23 07:59 | HP.PTREVAL ---
ARTURO BOYCE, It has been my pleasure to treat TOMAS Anthony OLDER over the last 6 visits for suproacondylar femur fx R s/p ryan. Please see the progress note below for an update on the physical therapy plan of care! Subjective: Still doing well but freaks out about 4:30 and pain gets worse at that point no matter what she does, wonders if it is psychological. 5/10 R knee and 3/10 back of hip. 1/10 in the morning. Sleep Ok with ambien. On feet alot at home for working and doing most things OK at home. Can do anything before 4:30 but hurts after that and is worthless. Does avoid kneeling as it freaks her out. Doing workout with weights on ankles at home and standing ex at home, walking at home.Doing bands at home for LE strength. Also stretching BW quad. Doctor thinks she is healing but wants catscan which is not approved yet. WBAT at this point. Objective/Function: Walking much better with very little R pelvic posterior rotation now in walking. Steps are normal reciprocal without rail and only slight discomfort increase transiently ascending. ROM 0-140 AROM B, slight hip flexor tightness B with knee in full flexion but functional. Strength LE hips 4+/5 adn knee ext and flexion 4 on R and 4+ on L. Ankle strength 4+ B. Scarring minimally especially proximally on lateral scar but not prohibiting function. Talked a little regarding counseling on mental part of 4:30 pain but patient wishes to wait until fully cleared as she thinks this will help. Pt has started machine strengthening on her own and feels comfortable doing it. Overall doing excellent with ROM, strength adn function. Appropriate to continue monitorring PT to ensure progres as she heals until CAtscan. Pt to call if problems and start gym ex without increased pain 3x/week. Plan Plan: Monthly monitorring of progress until fully cleared. Pt to call if problems in between. Ensure consistent meeting of goals without digression. Fair prognosis Goals Goal 1:: 0-140 AROM R knee with symmetrical quad flexibility Goal Time Frame: 6-8 Weeks Goal Progress: Goal Met Goal 2:: R knee strength 4/5 adn hip 4/5 without increased pain Goal Time Frame: 6-8 Weeks Goal Progress: Goal Met Goal 3:: Gait without deviations when allowed by doctor without AD> Goal Time Frame: 6-8 Weeks Goal Progress: Goal Met Goal 4:: Steps reciprocally without rail or pain Goal Time Frame: 6-8 Weeks Goal Progress: Goal Met, slight pain. Goal 5:: Pt feel 85% back to normal activitiy Goal Time Frame: 6-8 Weeks Goal Progress: Progressing Goal 6:: Wak normal speed without gait deviations. Goal Time Frame: 4-6 Weeks Goal Progress: Goal Met Anticipated Interventions Patient/Client Instruction: Educate patient on: Condition, Plan of Care For the Purpose of:: To decrease pain, To increase ROM, To improve muscle performance and motor function, To increase tolerance to activity/condition/position, To improve ability of physical actions for home/community/work/leisure, To improve gait and locomotor functions Therapeutic Exercise to Include: Strength training, Balance training, Flexibilty training, Gait and locomotor training, Passive ROM, Active ROM For the Purpose of:: To decrease pain, To improve muscle performance and motor function, To increase tolerance to activity/condition/position, To improve ability of physical actions for home/community/work/leisure, To improve gait and locomotor functions Manual Therapy Techniques to Include: Mobilization, Passive ROM, Soft tissue mobilization For the Purpose of:: To increase ROM TENS: Yes Cryotherapy (ice pack, ice massage): Yes For the Purpose of:: To decrease pain Please do not hesitate to contact me at [phone] by phone or if you have questions or concerns regarding this new plan of care! Sincerely, Hussein Lund, DPT, OCS, CSCS
--- NOTE | 2020-09-16 07:41 | HP.PTREVAL_ITS ---
ARTURO BOYCE, It has been my pleasure to treat TOMAS Anthony OLDER over the last 7 visits for suproacondylar femur fx R s/p ryan. Please see the progress note below for an update on the physical therapy plan of care! Subjective: Doing great right now. Two weeks ago got sharp pain in R knee, not sure why. Got more pain than usual and stayed that way for a couple weeks 5/10 and normal/current is 08/25. Got cortisone shot in knee and hip at the time. Still breaks down around 4:30/ Sleep is fine with ambien. Activities are normal. Sleeping up stairs. Walking up steps well. 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 Has it on R too. L 10/23 daily. Has orthotics and hhel cup in . Had catscan and is healing but not fully healed. Objective/Function: Walks well, has slight post pelvic rotation on R with end stance but otherwise no antalgia. Steps are reciprcal without rail today but hesitant without rail. Strength in R knee flexion and ext 4/5, hip flexion 4/5, hip abd and ext 4-, no pain. AROM R knee 0-138 todau and ROM at hip is symmetirccal to L in all motions except IR of hip which is 10 degrees slightly at deficit vs. L. Overall doing very well, has not been in gym due to pain scare from two weeks ago. Did exercises this mroning in gym without problem adn plans to get back to it now 3x/week holding off on elliptical and any new exercises. L PF origin more thender than R and AROM DF 2 degrees B, slightly tight. Pt activity before 4:30 normal and just has to be careful about volume. Measurables are doing well adn pt does nto wish to progress to functional multi joint ex until healed. This is appropriate as she is doing everything she needs to do at home. Fair prognosis to current adn new goals. Plan Plan: f/u 4 weeks to ensure progress and maintenance of meeting goals. pt to call prior if she wants PF evaluated adn treated or if there are concerns or pro blems with R LE. Goals Goal 1:: Pt maintain improvements and continue to feel better about activity level toward spring while doing I HEP and gym exercises without increased pain. And without regular weekly PT. Goal Time Frame: 4-6 Weeks Goal Progress: NEW GOAL Goal 2:: R knee strength 4/5 adn hip 4/5 without increased pain Goal Time Frame: 6-8 Weeks Goal Progress: Goal Met Goal 3:: Gait without deviations when allowed by doctor without AD> Goal Time Frame: 6-8 Weeks Goal Progress: Goal Met Goal 4:: Steps reciprocally without rail or pain Goal Time Frame: 6-8 Weeks Goal Progress: Goal Met, no pain increas Goal 5:: Pt feel 85% back to normal activitiy Goal Time Frame: 6-8 Weeks Goal Progress: Goal Met Goal 6:: Wak normal speed without gait deviations. Goal Time Frame: 4-6 Weeks Goal Progress: Goal Met Anticipated Interventions Patient/Client Instruction: Educate patient on: Condition, Plan of Care For the Purpose of:: To decrease pain, To increase ROM, To improve muscle performance and motor function, To increase tolerance to activity/condition/position, To improve ability of physical actions for home/community/work/leisure, To improve gait and locomotor functions Therapeutic Exercise to Include: Strength training, Balance training, Flexibilty training, Gait and locomotor training, Passive ROM, Active ROM For the Purpose of:: To decrease pain, To improve muscle performance and motor function, To increase tolerance to activity/condition/position, To improve ability of physical actions for home/community/work/leisure, To improve gait and locomotor functions Manual Therapy Techniques to Include: Mobilization, Passive ROM, Soft tissue mobilization For the Purpose of:: To increase ROM TENS: Yes Cryotherapy (ice pack, ice massage): Yes For the Purpose of:: To decrease pain Please do not hesitate to contact me at [phone] by phone or if you have questions or concerns regarding this new plan of care! Sincerely, Hussein Lund, DPT, OCS, CSCS
--- NOTE | 2020-10-28 07:36 | HP.PTREVAL ---
ARTURO BOYCE, It has been my pleasure to treat TOMAS Anthony OLDER over the last 8 visits for suproacondylar femur fx R s/p ryan. Please see the progress note below for an update on the physical therapy plan of care! Subjective: Pt doing OK. Has 2-4/10 later in day depending on what she does , worse on 1day per week that she is working out at the gym. Always about done with activity around 5p.m. Sleeping is OK. Walks worse later in day. 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 Continues to wrok out in gym 1x/week and at home with some exercises 3+x/week. Saw doctor last week and maybe about 30-50% healed btu it is going slow and she needs to be patient ad not overdo it in the meantime. Objective/Function: ROM R LE ankle and knee WNl and symmetrical with L. Hip is 8 ext R vs 10 L. Abductiona nd flexion symmetrical. Strength is 4- R hip ext vs 4 L. abd and flexion symmetrical at 4/5. Knee ext 4 R and 4+ L, HSC 4+ B. Ankle strength 4+ B. Steps are reciprocal without need for rail but weaker on R especially with eccentric lowering and mild discomfort. Bed and chair transfers are I. Overall, progression is slow but function is pretty good outside of limited volume due to discomfort adn just feeling worn out. Appropriate to cotninue via HEP and f/u monthly fo rprogressions, monitorring. Plan Plan: f/u every 4-6 weeks to check strength adn function and progress HEP as needed/desired within limits of healing. Fair prognosis Goals Goal 1:: Pt maintain improvements and continue to feel better about activity level toward spring while doing I HEP and gym exercises without increased pain. And without regular weekly PT. Goal Time Frame: 4-6 Weeks Goal Progress: stagnant, appropriate Goal 2:: Pt be consistent with home strength to feel 95% better overall and tolerate time in yard without pain >1/10 later in day. Goal Time Frame: 6-8 Weeks Goal Progress: NEW GOAL Goal 3:: Gait without deviations when allowed by doctor without AD> Goal Time Frame: 6-8 Weeks Goal Progress: Goal Met Goal 4:: Steps reciprocally without rail or pain Goal Time Frame: 6-8 Weeks Goal Progress: Goal Met, no pain increas Goal 5:: Pt feel 85% back to normal activitiy Goal Time Frame: 6-8 Weeks Goal Progress: Goal Met Goal 6:: Wak normal speed without gait deviations. Goal Time Frame: 4-6 Weeks Goal Progress: Goal Met Anticipated Interventions Patient/Client Instruction: Educate patient on: Condition, Plan of Care For the Purpose of:: To decrease pain, To increase ROM, To improve muscle performance and motor function, To increase tolerance to activity/condition/position, To improve ability of physical actions for home/community/work/leisure, To improve gait and locomotor functions Therapeutic Exercise to Include: Strength training, Balance training, Flexibilty training, Gait and locomotor training, Passive ROM, Active ROM For the Purpose of:: To decrease pain, To improve muscle performance and motor function, To increase tolerance to activity/condition/position, To improve ability of physical actions for home/community/work/leisure, To improve gait and locomotor functions Manual Therapy Techniques to Include: Mobilization, Passive ROM, Soft tissue mobilization For the Purpose of:: To increase ROM TENS: Yes Cryotherapy (ice pack, ice massage): Yes For the Purpose of:: To decrease pain Please do not hesitate to contact me at [phone] by phone or if you have questions or concerns regarding this new plan of care! Sincerely, Hussein Lund, DPT, OCS, CSCS
== END 2020-10-28 19:00 | disposition home or self-care (01) ==
LOC: PT 07:00
PROVIDERS: PCP Family Medicine
DX: S72.461 Displaced supracondylar fracture with intracondylar extension of lower end of right femur (principal)
CPT/HCPCS: 97110; 97116; 97140; 97162; 97164; 97530

== ENCOUNTER 2021-07-14 10:00 | Outpatient (RCR) | payer BC, SELFPAY ==
--- NOTE | 2021-07-04 08:02 | HP.PTEVAL ---
Patient's Visit Information TOMAS BONILLA is a 60 year old F referred to Physical Therapy by NIMESH GREWAL with a diagnosis of Meralgia parestheitca of r side, R femur pain. Date of Evaluation: 07/04/21 Physical Therapist: Hussein Lund, DPT, OCS, CSCS - Visit Plan Frequency: 2x /Week Duration: 4-6 Weeks Plan: 2x/week for 4-6 weeks for. 1. Soft tissue to R posterior hip pirifromis, ITB, TFL, gluts. DTR. 2. stretch R hip flexor and ITB. 3. strengthen R hip and knee to I. 4. gait training to avoid crossing midline and ensure activitiy modificatio in sitting hips and knees flexed maximally. - Subjective R femur fracture in early 2019 from accident. Multiple surgeries and it is healed as much as it is going to( about 50%). Rods placed in femur. Still painful and seeing pain management. Wanted to put her on percoset but failed a blood test for amount in system nad not getting it anymore. Sent to nerve doctor and had nerve block taking care of pain in mid femur. Should last two months and may need nerve ablation. Now pain is in R knee burning pain constant burning. R lateral hip still hurts intermittent and worse with activity. Gets 5/10 later in day especially after 6 pm. Knee gets up to 8/10. Currently knee at 4/10. sleeping Ok as long as she takes ambien. Not doing any exercises regularly for strength of hip. Spends day with housework on house and gets worse as she works especially getting up off floor whcih is very painful. basic ADLs are getting done I. Dresses in sitting and has to have chair in room. - Pain R knee Pain Intensity (Out of 10): 4 Pain Intensity Range: 1, 8 R lateral hip Pain Intensity (Out of 10): 0 Pain Intensity Range: 0, 5 - Objective Walks I without AD throughout department today with only baseline pain. Every fourth to fifth step, r foot crosses midline, otherwise good gait pattern with good balance. Steps reciprocally without rail I. transfers I. tends to sit tati cross legs and transfer to floor is with max flexion hips and knees and feet together, taugth 90/90 trasnfer through half kneel today with UE support to diminish hip and knee stress. Tender to palpation R pirifrmis, glut med and min, and TFL attachment top of hip. Mod tightness in R ITB and hip flexors. Strength R hip 3 abd and ext, 3+ rotation and 4- hip flexion vs 4 on L. AROM hip symmetircal except extension due to tightness anteriorly. knee AROM WFL and symmetrical B. strength 4- R and 4+ L ext and flexion. ankle aROM and strength WFL and symmetrical. at 4+/5. Sensation is painful to palpation R knee anteriorly hyper sensitive. - Balance/Special Test Scores Functional Gait Assessment Score: 28 % Disability: 6.6700 Lower Extremity Functional Score: 38 - Goals Goal 1:: I appropriate stretch and stregnth for R LE to manage pain. Goal Time Frame: 4-6 Weeks Goal 2:: Patient feel hip pain 75% better to 1/10 at worst and manageable Goal Time Frame: 4-6 Weeks Goal 3:: Get up off floor without increased pain in R LE Goal Time Frame: 4-6 Weeks Goal 4:: LEFS 55/80 Goal Time Frame: 4-6 Weeks - Rehabilitation Potential Physical Therapy Diagnosis: R hip and knee pain soft tissue vs neural. Interrupting mood and function particularly in evening. Rehabilitation Potential: Questionable - Anticipated Interventions Patient/Client Instruction: Educate patient on: Condition, Plan of Care For the Purpose of:: To decrease pain, To improve nutrient delivery to tissue, To improve muscle performance and motor function Therapeutic Exercise to Include: Strength training, Postural training, Flexibilty training, Gait and locomotor training For the Purpose of:: To decrease pain, To improve nutrient delivery to tissue, To improve muscle performance and motor function, To increase tolerance to activity/condition/position Manual Therapy Techniques to Include: Mobilization, Passive ROM, Soft tissue mobilization For the Purpose of:: To decrease pain, To improve nutrient delivery to tissue, To improve muscle performance and motor function Thank you for the opportunity to evaluate your patient. For Medicare and Medicare HMO plans, please review the plan of care and approve it. It will need to be FAXED BACK to us at [phone] for Medicare purposes. For Medicare only, by signing this I certify the plan of care. Please let me know if there are questions or concerns regarding this plan of care. Physician Signature: Date:
--- NOTE | 2021-10-01 11:06 | HP.PT.NRP ---
TOMAS BONILLA was seen in my office for initial evaluation on 07/04/21. The following Plan of Care was established for this patient: Initial Frequency: 2x /Week Initial Duration: 4-6 Weeks Patient/Client Instruction: Educate patient on: Condition, Plan of Care For the Purpose of:: To decrease pain, To improve nutrient delivery to tissue, To improve muscle performance and motor function Therapeutic Exercise to Include: Strength training, Postural training, Flexibilty training, Gait and locomotor training For the Purpose of:: To decrease pain, To improve nutrient delivery to tissue, To improve muscle performance and motor function, To increase tolerance to activity/condition/position Manual Therapy Techniques to Include: Mobilization, Passive ROM, Soft tissue mobilization For the Purpose of:: To decrease pain, To improve nutrient delivery to tissue, To improve muscle performance and motor function This patient was last seen in our office 07/14/21. Pertinent comments regarding their Physical therapy will appear below: Pt seen two visits of POC but then did not schedule or attend any further visits due to husbands medical concerns. At this point, it has been over 2 months and I will discontinue due to nonattendance. At this point I will be discontinuing this patient from physical therapy. I would be happy to see this patient again in the future if found appropriate by the physician. Thank you! Hussein Lund, DPT, OCS, CSCS Balance/Gait/Functional tests - Balance/Special Test Scores Functional Gait Assessment Score: 28 % Disability: 6.6700 Lower Extremity Functional Score: 38
== END 2021-07-14 19:00 | disposition home or self-care (01) ==
LOC: PT 10:00
PROVIDERS: PCP Family Medicine; Visit Provider Nurse Practitioner Primary Care
DX: M89.8X5 Other specified disorders of bone, thigh (principal); G57.11 Meralgia paresthetica, right lower limb
CPT/HCPCS: 97110; 97140; 97162

== ENCOUNTER 2021-08-23 13:07 | Observation (INO) | payer BC, SELFPAY ==
[2021-08-23] VITALS (12 sets, daily range): BP systolic 102–155; BP diastolic 80–98; PULSE 73–95; RESP 14–18; TEMP 35.5–36.7; O2SAT 97–100; BMI 24.3; BMI 23.9
--- NOTE | 2021-08-23 13:12 | ED.RN ---
SX RESOLVED EXCEPT OR MILD NUMBNESS TO LEFT SIDE FACE. PT REPORTS HAD HALF HOUR GARBLED SPEECH WHICH RESOLVED
--- NOTE | 2021-08-23 13:14 | EKG12_ITS ---
Test Reason : NEURO S\SX Blood Pressure : / mmHG Vent. Rate : 070 BPM Atrial Rate : 070 BPM P-R Int : 150 ms QRS Dur : 082 ms QT Int : 428 ms P-R-T Axes : 019 -01 024 degrees QTc Int : 462 ms Normal sinus rhythm Normal ECG Confirmed by CLEVE GIMENEZ, LESLIE ([id number]), development editor HAN FRENCH ([id number]) on 08/26/2021 12:43:27 PM Referred By: AZUL Confirmed By:LESLIE POON MD
--- NOTE | 2021-08-23 13:14 | CT_ITS ---
STUDY: CT HEAD STROKE PROTOCOL W/O CONTRAST INJECTION REASON FOR EXAM: Female, 60 years old. Acute neuro deficit, suspected stroke. RADIATION DOSAGE (If Supplied By Facility): CTDIvol = ( 44.99 ) mGy, DLP = ( 748.30 ) mGycm TECHNIQUE: Transaxial CT imaging of the brain was performed without administration of intravenous contrast material. Individualized dose optimization techniques were used for this CT. COMPARISON: No relevant priors. FINDINGS: Normal soft tissue structures. Normal calvarium. Normal size ventricles and extra-axial spaces for the patient''s age. Normal white matter tracts of the cerebral hemispheres. Normal basal ganglia and thalami. Normal brainstem. Normal cerebellum. There is no intracranial hemorrhage. There are no findings of an acute ischemic infarction. Normal visualized paranasal sinuses. CT/STROKE Brain/Head without Cont IMPRESSION: Normal unenhanced CT scan of the brain. N.B. : The above Results were Read Back by Bennett oRdriguez to Ankit Mendoza and understanding confirmed on 08/23/2021 13:59:51 (ET). Electronically Signed: Bennett Rodriguez, at 14:00 EST Tel , Service support ,
--- NOTE | 2021-08-23 13:15 | CT_ITS ---
STUDY: CTA HEAD AND NECK WITH CONTRAST REASON FOR EXAM: Female, 60 years old. Acute neuro deficit, suspect stroke. RADIATION DOSAGE (If Supplied By Facility): CTDIvol = ( 16.56 ) mGy, DLP = ( 587.32 ) mGycm TECHNIQUE: CT angiography was performed with a multi-detector CT scanner. Data acquisition was obtained from the skull base through the vertex following intravenous administration of IV 100mL [id number]-[id number]. MIP images were reconstructed from the axial data set. Post-processing of the angiographic images was performed, with multiplanar reformation and 3D reconstruction. Individualized dose optimization techniques were used for this CT. COMPARISON: No relevant priors. FINDINGS: Normal bilateral petrous carotid arteries. Normal right cavernous carotid artery with a normal supraclinoid bifurcation. Normal left cavernous carotid artery with a normal supraclinoid bifurcation. Normal right A1 segments of the anterior cerebral artery. Normal left A1 segments of the anterior cerebral artery. Normal intact anterior communicating artery (ACOM). Normal bilateral A2 segments of the anterior cerebral arteries. Normal right M1 and M2 segments of the middle cerebral arteries, with a normal M1 bifurcation. Normal left M1 and M2 segments of the middle cerebral arteries, with a normal M1 bifurcation. There is non-visualization of the right posterior communicating artery (PCOM). There is non-visualization of the left posterior communicating artery (PCOM). Normal bilateral vertebral arteries. Normal basilar artery with a normal basilar bifurcation. The visualized bilateral superior cerebellar (SCA) arteries are normal. There is no demonstrated aneurysm of the [place]. There is no demonstrated abnormality of the visualized brain. AORTIC ARCH: Normal visualized aortic arch. Normal origins of the brachiocephalic, left common carotid, and left subclavian arteries. RIGHT CAROTID ARTERIES: There is atherosclerotic tortuous elongation of the right common carotid artery. Normal right common carotid bulb. Normal origin of the right internal carotid (ICA) artery without a hemodynamically significant stenosis. Normal visualized cervical portion of the right internal carotid artery. Normal origin of the right external carotid artery (ECA). LEFT CAROTID ARTERIES: There is atherosclerotic tortuous elongation of the left common carotid artery. Normal left common carotid bulb. Normal origin of the left internal carotid (ICA) artery without a hemodynamically significant stenosis. Normal visualized cervical portion of the left internal carotid artery. Normal origin of the left external carotid artery (ECA). VERTEBRAL ARTERIES: Normal bilateral vertebral arteries. CT/STROKE CTA Head AND Neck W/Con IMPRESSION: 1. No evidence of intracranial vessel stenosis. 2. Unremarkable common and internal carotid arteries bilaterally. 3. Patent bilateral vertebral arteries. N.B. : The above Results were Read Back by Bennett Rodriguez to Chuy Mendoza MD, and understanding confirmed on 08/23/2021 14:09:48 (ET). Electronically Signed: Bennett Rodriguez, at 14:11 EST Tel , Service support ,
[2021-08-23 13:16] LABS: Bedside Glucose 95 mg/dL (70-110)
--- NOTE | 2021-08-23 13:18 | EDS_ITS ---
HPI History of Present Illness Chief Complaint: Neuro S/Sx Informant: patient and spouse/S.O. Onset/Context/Timing Onset: Today Context: Sudden Onset Timing: Continuous Quality and Location: Positive for Left Face Parasthesia, Left Leg Parasthesia, Slurred Speech and Expressive Aphasia Current Severity: Gone Maximum Severity: Moderate Associated Symptoms Associated Symptoms: Negative for Headache, Nausea, Vomiting and Chest Pain Narrative Narrative: 60-year-old female history of prediabetes just placed on Metformin hypertension. Is never had a TIA or stroke that she is aware of. No history of cardiac disease. She states around 1215 she calls these episodes lots of time . States she is kind of out of it. Today she had left facial numbness and left leg numbness. She denied any weakness. Denies any headache or head trauma. She is on no blood thinners. states this occurred around 1215 and he could not understand her speech. He is believes that lasted about 15 minutes and now her speech is back to baseline. She said the left leg numbness has resolved and the left face is improving. Prior similar symptoms: Yes Recent Illness/Hospitalization: No PFSH [facility] [place] Medical History (Updated 08/23/21 @ 13:[address] Chuy Mendoza MD) Acute blood loss anemia Anxiety Arthritis Branch retinal vein occlusion of both eyes Chronic anemia Glaucoma Hypothyroidism Insomnia Migraine Osteoporosis Peptic ulcer disease Unspecified intestinal obstruction Home Medications levothyroxine 50 mcg PO DAILY 07/24/13 [History Last Taken 01/12/18 07:00 50 MCG] pantoprazole 40 mg PO BID 07/24/13 [History Last Taken 01/12/18 07:00 40 MG] zolpidem 10 mg PO QHS 07/24/13 [History Last Taken 12/15/15] latanoprost 1 drp EACH EYE QHS 12/16/15 [History Last Taken 12/15/15] rizatriptan 10 mg PO DAILY PRN PRN 12/16/15 [History Last Taken Unknown] ascorbic acid (vitamin C) 1,000 mg tablet 4 g PO DAILY tab 12/30/17 [History Last Taken Unknown] cholecalciferol (vitamin D3) 25 mcg (1,000 unit) tablet 1,000 unit PO DAILY tab 12/30/17 [History Last Taken Unknown] ferrous sulfate 325 mg (65 mg iron) tablet 325 mg PO QDAY tab 12/30/17 [History Last Taken Unknown] cyanocobalamin (vitamin B-12) 1,000 mcg/mL injection solution 100 mcg IM QMONTH 07/26/19 [History Last Taken Unknown] lisinopril 10 mg tablet 10 mg PO DAILY #90 tab 07/26/19 [Rx Last Taken Unknown] amlodipine 08/23/21 [History Last Taken Unknown] clobetasol 1 applic TOPICAL DAILY 08/23/21 [History Last Taken Unknown] cyclobenzaprine 5 mg PO TID PRN 08/23/21 [History Last Taken Unknown] dorzolamide (PF) 1 drp EACH EYE BID 08/23/21 [History Last Taken Unknown] folic acid 1 mg PO DAILY 08/23/21 [History Last Taken Unknown] gabapentin 300 mg PO TID 08/23/21 [History Last Taken Unknown] loratadine 10 mg PO DAILY 08/23/21 [History Last Taken Unknown] lorazepam 0.5 mg PO DAILY PRN 08/23/21 [History Last Taken Unknown] metformin 500 mg PO DAILY 08/23/21 [History Last Taken Unknown] timolol maleate 1 drp EACH EYE DAILY 08/23/21 [History Last Taken Unknown] topiramate 100 mg PO QHS 08/23/21 [History Last Taken Unknown] venlafaxine 75 mg PO TID 08/23/21 [History Last Taken Unknown] Allergy/AdvReac Type Severity Reaction Status Date / Time No Known Allergies Allergy Verified 08/23/21 13:15 Family History Sister Asthma Diabetes Hypertension High cholesterol Osteoporosis Mother Diabetes High cholesterol Hypertension Osteoporosis Thyroid disorder Skin cancer Brother Diabetes Hypertension High cholesterol Father Heart disease Hypertension CVA (cerebral vascular accident) Surgical History History of esophagogastroduodenoscopy (EGD) (2016) History of gastric bypass History of hysterectomy History of laparoscopic cholecystectomy History of lumpectomy of right breast History of tubal ligation Social History Smoking Status: Never smoker alcohol intake: never substance use type: does not use ROS ROS ED ROS Narrative Denies recent illness. Constitutional Constitutional ED: Denies fever(s) or subjective Eyes Eyes: Denies change in vision ENT ENT ED: Denies ear pain Cardiovascular Cardiovascular: Denies chest pain Respiratory/Chest Respiratory/Chest: Denies cough or dyspnea Gastrointestinal Gastrointestinal: Denies abdominal pain or nausea Genitourinary Genitourinary ED: Denies dysuria Musculoskeletal Musculoskeletal: Denies arthralgias or myalgias Integumentary Denies rash Neurologic Neurologic: Reports paresthesias and other Details: Slurred speech ; Denies hea dache(s) or weakness Psychiatric Psychiatric: Denies anxiety or depression Endocrine Endocrinology: Denies polyuria Hematologic/Lymphatic Hematologic/Lymphatic: Denies easy bruising Allergic/Immunologic Allergic/Immunologic ED: Denies urticaria EXAM Physical Exam Narrative Exam Narrative: 1-year-old female currently no acute distress. Vital signs stable afebrile. Blood pressure 136/96. Pulse ox 99 and no hypoxia. HEENT exam unremarkable. Pupils round reactive light extra motions are intact. Tongue midline. Normal speech. No facial droop. Subjective possible decreased sensation left cheek. Able to wrinkle her forehead's. Neck nontender. Lungs clear to auscultation. Heart regular rhythm no murmur. Abdomen soft nontender. Moving all 4 extremities. 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 Dorsi plantarflexion intact. No drift of either the upper or lower extremities. Neurologically she is awake and alert. Again no facial droop. Normal speech. Normal motor strength without any deficit. Fingertip to nose within normal limits. NIH score of 0. Const Vital Signs: 08/23/21 13:07 08/23/21 13:14 08/23/21 13:27 Temperature 95.9 F L Temperature Source Temporal Pulse Rate 84 74 Respiratory Rate 14 18 Blood Pressure 136/96 H 128/98 H Blood Pressure Mean 109 108 Pulse Ox 99 100 98 Oxygen Delivery Method Room Air Room Air Room Air 08/23/21 13:44 Temperature Temperature Source Pulse Rate 73 Respiratory Rate 16 Blood Pressure 138/91 H Blood Pressure Mean 106 Pulse Ox 99 Oxygen Delivery Method Room Air Positive well nourished and well developed; Negative for obese, cachectic, contractures or unkempt General Appearance ED: well developed and NAD; Negative for unkempt, cachectic or contractures Nutritional Appearance: Negative for cachectic or obese HEENT Reports moist mucous membranes atraumatic; Negative for trauma Eyes PERRL and EOMs intact bilaterally Neck no lymphadenopathy, supple and no JVD General: Negative for tenderness Chest Wall inspection of chest normal and palpation of chest normal Resp normal respiratory effort and clear to auscultation bilaterally Auscultation: Negative for rales, rhonchi or wheezes Cardio no murmurs Rate: regular rate Rhythm: regular rhythm and abnormal rhythm Heart Sounds: S1 normal and S2 normal GI normal to inspection, nondistended, normoactive bowel sounds, soft to palpation, non-tender, non-distended and no masses Inspection: Negative for abdominal distention Auscultation: normoactive bowel sounds Palpation: Negative for tender, guarding or rebound tenderness present Back/Spine no CVA tenderness General Back: Negative for CVA tenderness Cervical Spine: Negative for cervical spine tenderness Thoracic Spine / Upper Back: Negative for thoracic spinal tenderness Extremity normal to inspection General Extremety ED: Negative for deformity, edema or tenderness General Extremity: Negative for deformity or edema Neuro oriented x3, CN's II-XII intact bilaterally and No no sensory deficits noted Sensorium / Orientation: alert, oriented to person, oriented to place and oriented to time; Negative for orientation impaired, confused, lethargic or stuporous Speech: speech normal Motor Exam: strength 5/5 throughout; Negative for general weakness or strength abnormal Psych mental status grossly normal Appearance: Negative for unkempt Mood & Affect: Negative for depressed or tearful Skin no wounds General Skin Exam: Negative for jaundice Lesions: no lesions Rashes: no rashes and No rashes noted STROKE Vital Signs/Narrative: Vital Signs Temp Pulse Resp BP Pulse Ox 08/23/21 13:44 73 16 138/91 H 99 08/23/21 13:27 74 18 128/98 H 98 08/23/21 13:14 100 08/23/21 13:07 95.9 F L 84 14 136/96 H 99 Inital Vital Signs reviewed: Yes MDM MDM MDM Narrative Medical decision making narrative: 60-year-old female historically sounds like she had a TIA beginning around 1215 and sounds completely resolved. Currently her NIH is 0. She is not currently a TPA candidate. She will undergo stroke protocol will obtain a CTA head and neck. Repeat exam patient is doing well at 2:12 PM. No new neurological findings or change in her exam. I will speak to the hospitalist about admission for an acute TIA. Lab Data Attestation: I reviewed the patient's lab results. Lab results narrative: CBC normal white count 8 hemoglobin of 12.9. Platelets 268. PT/INR and PTT normal. Electrolytes normal. Normal gap. Normal BUN and creatinine. Troponin normal. Glucose 100. Radiologist read CAT scan and CTA of the head neck is unremarkable no acute findings. Labs: Laboratory Results - last 24 hr 08/23/21 08/23/21 08/23/21 13:13 13:15 13:15 WBC 8.1 RBC 4.27 Hgb 12.9 Hct 41.6 MCV 97.4 MCH 30.2 MCHC 31.0 L RDW Std Deviation 49.6 H RDW Coeff of Lobo 13.9 Plt Count 268 MPV 8.9 Immature Gran % (Auto) 0.400 Neut % (Auto) 73.1 H Lymph % (Auto) 14.4 L Sampson % (Auto) 7.0 Eos % (Auto) 4.2 Baso % (Auto) 0.9 Absolute Neuts (auto) 5.9 Absolute Lymphs (auto) 1.16 Nucleated RBC % 0 PT 11.8 INR 0.9 APTT 26.6 Sodium Potassium Chloride Carbon Dioxide Anion Gap BUN Creatinine Estim Creat Clear Calc Est GFR (MDRD) Af Amer Est GFR (MDRD) Non-Af BUN/Creatinine Ratio Glucose Calcium Troponin I High Sens POC Glucose 95 08/23/21 13:15 WBC RBC Hgb Hct MCV MCH MCHC RDW Std Deviation RDW Coeff of Lobo Plt Count MPV Immature Gran % (Auto) Neut % (Auto) Lymph % (Auto) Sampson % (Auto) Eos % (Auto) Baso % (Auto) Absolute Neuts (auto) Absolute Lymphs (auto) Nucleated RBC % PT INR APTT Sodium 142 Potassium 3.7 Chloride 110 H Carbon Dioxide 24.0 Anion Gap 8 BUN 16 Creatinine 0.93 Estim Creat Clear Calc 54.86 Est GFR (MDRD) Af Amer 79 Est GFR (MDRD) Non-Af 65 BUN/Creatinine Ratio 17.2 Glucose 100 Calcium 8.9 Troponin I High Sens 4 POC Glucose Radiography Diagnostic Testing: Clinical Impression(s) from Imaging Studies Brain CT 08/23/21 13:14 IMPRESSION: Normal unenhanced CT scan of the brain. N.B. : The above Results were Read Back by Bnenett Rodriguez to Ankit Mendoza and understanding confirmed on 08/23/2021 13:59:51 (ET). Electronically Signed: Bennett Rodriguez, at 14:00 EST Tel , Service support , ADDENDUM: 08/23/21 1407 IMPRESSION: Normal unenhanced CT scan of the brain. N.B. : The above Results were Read Back by Bennett Rodriguez to Ankit Mendoza and understanding confirmed on 08/23/2021 13:59:51 (ET). Electronically Signed: Bennett Rodriguez, at 14:00 EST Tel , Service support , Head/Neck CTA 08/23/21 13:15 IMPRESSION: 1. No evidence of intracranial vessel stenosis. 2. Unremarkable common and internal carotid arteries bilaterally. 3. Patent bilateral vertebral arteries. N.B. : The above Results were Read Back by Bennett Rodriguez to Chuy Mendoza MD, and understanding confirmed on 08/23/2021 14:09:48 (ET). Electronically Signed: Bennett Rodriguez, at 14:11 EST Tel , Service support , Rhythm Strip Rhythm Strip: Sinus Rhythm Rate: 70 Ectopy: None EKG Initial EKG: Attestation: I personally reviewed and interpreted this EKG as follows: Interpretation: Sinus Rhythm and No Acute Injury Pattern Comments: Normal sinus rhythm rate of 70 no acute signs of MO nor ischemia. Stroke Documentation Questions Stroke Team Activated: No Reviewed Inclusion/Exclusion criteria: Yes Was Patient considered for Endovascular Intervention?: No IV Alteplase (t-PA) Administered: No No contraindications for IV Alteplase (t-PA) administration.: Yes Alteplase (t-PA) risks, benefits, alternative discussed: No Not given: Patient refusal: No Discharge Plan Dx/Rx/DC Orders Clinical Impression: Brain TIA, Diabetes Disposition Disposition: Acute Care Hospital [facility]
[2021-08-23 13:23] LABS: Absolute Lymphocyte Count 1.16 X10^3/uL (0.83-4.51); Absolute Neutrophil Count 5.9 X10^3/uL (2.0-7.7); Basophil# 0.07 X10^3/uL; Basophil% 0.9 % (0-1); Eosinophil# 0.34 X10^3/uL; Eosinophils% 4.2 % (0-5); Hematocrit 41.6 % (37-47); Hemoglobin 12.9 g/dL (12.0-15.0); Lymphocyte # 1.16 X10^3/ul (0.83-4.51); Lymphocyte % 14.4 % (19-41); Mean Corpuscular Hgb 30.2 pg (27.0-32.0); Mean Corpuscular Volume 97.4 fL (81-99); Mean Platelet Vol. 8.9 fl (6.2-12.0); Monocyte# 0.56 X10^3/uL; NRBC Flagged by Analyzer 0 % (0-5); Neutrophil # 5.89 X10^3/uL (2.7-7.7); Neutrophil % 73.1 % (47-70); Platelet Count 268 K/mm3 (150-450); RBC Distribution Width CV 13.9 % (11.6-14.6); RBC Distribution Width SD 49.6 fl (35.1-43.9); Red Blood Count 4.27 M/mm3 (4.2-5.4); White Blood Count 8.1 K/mm3 (4.4-11.0)
--- NOTE | 2021-08-23 13:25 | RAD_ITS ---
STUDY: X-RAY CHEST REASON FOR EXAM: Female, 60 years old. Acute neuro deficit, suspect stroke. TECHNIQUE: Single AP portable view of the chest. COMPARISON: 12/16/2015. FINDINGS: The lungs are clear and expanded. There is no demonstrated pleural abnormality. Normal size heart. Normal mediastinum and nickolas. Normal visualized pulmonary arteries. 2 Normal visualized thoracic spine. Normal visualized ribs, clavicles, and shoulders. Surgical clips in the epigastric region. RAD/Chest 1 View IMPRESSION: No active pulmonary disease. Electronically Signed: Bennett Rodriguez, at 14:13 EST Tel , Service support ,
[2021-08-23 13:36] LABS: International Normalized Ratio 0.9; Prothrombin Time (Protime)PT. 11.8 SECONDS (11.7-14.9)
[2021-08-23 13:37] LABS: Partial Thromboplast Time 26.6 Seconds (24.1-36.2)
[2021-08-23 13:42] LABS: Anion Gap 8 (5-15); BUN 16 mg/dL (7-18); BUN/Creat Ratio 17.2 RATIO (10-20); Calcium,Total 8.9 mg/dL (8.5-10.1); Chloride 110 mmol/L (98-107); Creatinine, Serum 0.93 mg/dL (0.55-1.02); EST Glomerular Filtration Rate 65 mL/min (>60); Est Glom Filt Rate - Afr Amer 79 mL/min (>60); Estimated Creatinine Clearance 54.86 ml/min; Glucose 100 mg/dL (74-106); Potassium 3.7 mmol/L (3.5-5.1); Sodium Level 142 mmol/L (136-145); Troponin-I HS 4 pg/mL (3.0-54.0)
--- NOTE | 2021-08-23 15:14 | HP.PCM.HOS_ITS ---
HPI - General General Date of Admission: 08/23/21 HPI Narrative CC: Numbness, slurred speech TOMAS BONILLA, is a 60 F who presents with a complaint of numbness on the left side of her face and her left leg, without weakness. At home when these events occured, the patient also felt strange like her was 2 rooms away, even though her was right there. stated that she did not make any sense in that her speech was nonsensical. The patient was able to walk into the ED and by the time they arrived to the hospital (triaged at 107, within an hr of symptom onset) the patient did not have any more symptoms. Denies falls or seizures at home. 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 She did get an echo in 2019 for this issue but since then does not have any heart problems, chest pain nor is she on blood thinners (EF 55% with no diastolic dysfunction on 2019 echo). She is not having any trouble seeing hearing swallowing now. Blood pressure is controlled and there is no reported severe hypotensive episodes. She stated that in the past she has not had numbness but she did have experiences where she is driving home and completely forgets where she is. In the ED she was evaluated with a CT head and CT a neck and carotids which were unremarkable. EKG showed normal sinus rhythm and troponin was negative. Patient had a stable blood pressure in the 130s-140s systolic She is not a smoker or a heavy drinker. Grandparents did have heart disease in their 60s and 70s and her father does have atrial fibrillation. [facility] Medical History Acute blood loss anemia Anxiety Arthritis Branch retinal vein occlusion of both eyes Chronic anemia Glaucoma Hypothyroidism Insomnia Migraine Osteoporosis Peptic ulcer disease Unspecified intestinal obstruction Home Medications levothyroxine 50 mcg PO DAILY 07/24/13 [History Last Taken 01/12/18 07:00 50 MCG] pantoprazole 40 mg PO BID 07/24/13 [History Last Taken 08/23/21] zolpidem 10 mg PO QHS 07/24/13 [History Last Taken 12/15/15] latanoprost 1 drp EACH EYE QHS 12/16/15 [History Last Taken 12/15/15] rizatriptan 10 mg PO DAILY PRN PRN 12/16/15 [History Last Taken Unknown] ascorbic acid (vitamin C) 1,000 mg tablet 4 g PO DAILY tab 12/30/17 [History Last Taken 08/23/21] cholecalciferol (vitamin D3) 25 mcg (1,000 unit) tablet 1,000 unit PO DAILY tab 12/30/17 [History Last Taken 08/23/21] ferrous sulfate 325 mg (65 mg iron) tablet 325 mg PO QDAY tab 12/30/17 [History Last Taken 08/23/21] cyanocobalamin (vitamin B-12) 1,000 mcg/mL injection solution 100 mcg IM QMONTH 07/26/19 [History Last Taken Unknown] lisinopril 10 mg tablet 10 mg PO DAILY #90 tab 07/26/19 [Rx Last Taken Unknown] amlodipine 5 mg PO DAILY 08/23/21 [History Last Taken 08/22/21] clobetasol 1 applic TOPICAL DAILY 08/23/21 [History Last Taken Unknown] cyclobenzaprine 5 mg PO TID PRN 08/23/21 [History Last Taken Unknown] dorzolamide (PF) 1 drp EACH EYE BID 08/23/21 [History Last Taken Unknown] folic acid 1 mg PO DAILY 08/23/21 [History Last Taken 08/23/21] gabapentin 300 mg PO TID 08/23/21 [History Last Taken 08/23/21] hydroxyzine pamoate 50 mg PO TID 08/23/21 [History Last Taken 08/23/21] loratadine 10 mg PO DAILY 08/23/21 [History Last Taken 08/23/21] lorazepam 0.5 mg PO DAILY PRN 08/23/21 [History Last Taken 08/22/21] metformin 500 mg PO DAILY 08/23/21 [History Last Taken 08/23/21] timolol maleate 1 drp EACH EYE DAILY 08/23/21 [History Last Taken Unknown] topiramate 100 mg PO QHS 08/23/21 [History Last Taken 08/22/21] venlafaxine 75 mg PO TID 08/23/21 [History Last Taken 08/23/21] Allergy/AdvReac Type Severity Reaction Status Date / Time No Known Allergies Allergy Verified 08/23/21 13:15 Family History Sister Asthma Diabetes Hypertension High cholesterol Osteoporosis Mother Diabetes High cholesterol Hypertension Osteoporosis Thyroid disorder Skin cancer Brother Diabetes Hypertension High cholesterol Father Heart disease Hypertension CVA (cerebral vascular accident) Surgical History History of esophagogastroduodenoscopy (EGD) (2016) History of gastric bypass History of hysterectomy History of laparoscopic cholecystectomy History of lumpectomy of right breast History of tubal ligation Social History Smoking Status: Never smoker alcohol intake: never substance use type: does not use ROS ROS Narrative No fevers chills, trouble seeing hearing swallowing except for chronic blindness. No issues with chest pain no issues with cough shortness of breath, abdominal pain dysuria hematuria, diarrhea or constipation Does have chronic insomnia, depression anxiety without recent falls or seizures Vital Signs Vital Signs Vital Signs: 08/23/21 13:07 08/23/21 13:14 08/23/21 13:27 Temperature 95.9 F L Temperature Source Temporal Pulse Rate 84 74 Respiratory Rate 14 18 Blood Pressure 136/96 H 128/98 H Blood Pressure Mean 109 108 Pulse Ox 99 100 98 Oxygen Delivery Method Room Air Room Air Room Air 08/23/21 13:44 08/23/21 14:15 08/23/21 14:45 Temperature Temperature Source Pulse Rate 73 78 77 Respiratory Rate 16 14 16 Blood Pressure 138/91 H 126/86 H 122/85 H Blood Pressure Mean 106 99 97 Pulse Ox 99 98 99 Oxygen Delivery Method Room Air Room Air Weight Weight: 141 lb 15.643 oz Body Mass Index (BMI) 24.3 Physical Exam Const alert, no apparent distress and average body habitus HEENT normocephalic and head/scalp atraumatic HEENT Narrative: Smile is symmetrical and she has moist mucous membranes Eyes EOMs intact bilaterally Neck no lymphadenopathy Resp normal respiratory effort Cardio S1 normal heart sound, S2 normal heart sound and no murmurs GI normal to inspection, nondistended, normoactive bowel sounds, non-tender and non-distended Extremity normal to inspection Skin no wounds Neuro Neuro Narrative: 5 out of 5 handgrip, patient has 5 out of 5 extension flexion of feet, and 5 out of 5 strength lower extremities. She does not have any slurred speech and recalls memories accurately Sensorium / Orientation: alert Psych affect normal Results Lab / Micro Data Result Diagrams: 08/23/21 13:15 08/23/21 13:15 Labs: Laboratory Results - last 24 hr 08/23/21 13:13: POC Glucose 95 08/23/21 13:15: WBC 8.1, RBC 4.27, Hgb 12.9, Hct 41.6, MCV 97.4, MCH 30.2, MCHC 31.0 L, RDW Std Deviation 49.6 H, RDW Coeff of Lobo 13.9, Plt Count 268, MPV 8.9, Immature Gran % (Auto) 0.400, Neut % (Auto) 73.1 H, Lymph % (Auto) 14.4 L, [place] % (Auto) 7.0, Eos % (Auto) 4.2, Baso % (Auto) 0.9, Absolute Neuts (auto) 5.9, A bsolute Lymphs (auto) 1.16, Nucleated RBC % 0 08/23/21 13:15: PT 11.8, INR 0.9, APTT 26.6 08/23/21 13:15: Sodium 142, Potassium 3.7, Chloride 110 H, Carbon Dioxide 24.0, Anion Gap 8, BUN 16, Creatinine 0.93, Estim Creat Clear Calc 54.86, Est GFR (MDRD) Af Amer 79, Est GFR (MDRD) Non-Af 65, BUN/Creatinine Ratio 17.2, Glucose 100, Calcium 8.9, Troponin I High Sens 4 Rhythm Strip Rhythm Strip: Sinus Rhythm Rate: 70 Ectopy: None Radiology Impression Brain CT 08/23/21 13:14 IMPRESSION: Normal unenhanced CT scan of the brain. N.B. : The above Results were Read Back by Bennett Rodriguez to Ankit Mendoza and understanding confirmed on 08/23/2021 13:59:51 (ET). Electronically Signed: Bennett Rodriguez, at 14:00 EST Tel , Service support , ADDENDUM: 08/23/21 1345 IMPRESSION: Normal unenhanced CT scan of the brain. N.B. : The above Results were Read Back by Bennett Rodriguez to Ankit Mendoza and understanding confirmed on 08/23/2021 13:59:51 (ET). Electronically Signed: Bennett Jennifer, at 14:00 EST Tel , Service support , Head/Neck CTA 08/23/21 13:15 IMPRESSION: 1. No evidence of intracranial vessel stenosis. 2. Unremarkable common and internal carotid arteries bilaterally. 3. Patent bilateral vertebral arteries. N.B. : The above Results were Read Back by Bennett Rodriguez to Chuy Mendoza MD, and understanding confirmed on 08/23/2021 14:09:48 (ET). Electronically Signed: Bennett Rodriguez, at 14:11 EST Tel , Service support , ADDENDUM: 08/23/21 1418 IMPRESSION: 1. No evidence of intracranial vessel stenosis. 2. Unremarkable common and internal carotid arteries bilaterally. 3. Patent bilateral vertebral arteries. N.B. : The above Results were Read Back by Bennett Rodriguez to Chuy Mendoza MD, and understanding confirmed on 08/23/2021 14:09:48 (ET). Electronically Signed: Bennett Jennifer, at 14:11 EST Tel , Service support , Chest X-Ray 08/23/21 13:25 IMPRESSION: No active pulmonary disease. Electronically Signed: Bennett Rodriguez, at 14:13 EST Tel , Service support , Assessment & Plan Assessment/Plan (1) Brain TIA: (2) Branch retinal vein occlusion of both eyes: (3) Essential hypertension: PLAN: Transient ischemic attack -Ad[facility] to [facility] on cardiac monitoring -Check TSH and lipids -Given history of gastric bypass we should check B12 and folate for deficiencies -Continue neurochecks, dysphagia screening and then start diet -Give aspirin now and continue 325 mg aspirin daily. Patient's ABCD 2 score is less than 4 so she does not warrant clopidogrel at this point -We will obtain MRI and cardiac echo -Physical therapy, occupational therapy, and case management consults. Stroke ed ucation Prediabetes -Glucose checks routinely. -Carb consistent diet -Hold metformin right now Hypertension -resume home medications & Amlodipine 5 mg and Lisinopril Glaucoma-resume Hypothyroidism -Resume 50 MCG daily Synthroid follow-up TSH level in morning Insomnia/anxiety -Resume venlafaxine and Ambien Patient is a full code we have discussed this with the patient and family Continue carb consistent diet Start Lovenox 40 mg Tray Guzmán MD Charges/Coding Visit Charges Inpatient E&M: 24608 Init Hosp L2
[2021-08-23] MEDS: Aspirin 81 MG TAB.CHEW 162 MG PO (16:01)
--- NOTE | 2021-08-23 16:40 | PCS.PANDOC ---
PANDEMIC DOCUMENTATION INITIATED: Date: 03/31/2021 Time: 190
[2021-08-23] MEDS: Lisinopril 10 MG Tablet PO (17:25)
[2021-08-23] MEDS: Gabapentin 300 MG Capsule PO ×2 (17:25→22:37)
[2021-08-23 17:50] LABS: Bedside Glucose 116 mg/dL (70-110)
[2021-08-23] MEDS: Rizatriptan Benzoate 10 MG Tablet PO (20:47)
[2021-08-23] MEDS: Pantoprazole Sodium 40 MG Tablet PO (20:47)
[2021-08-23] MEDS: cycloBENZAPRine HCl 5 MG TABLET PO (20:48)
[2021-08-23] MEDS: Venlafaxine HCl 75 MG Tablet PO (20:48)
[2021-08-23] MEDS: Topiramate 100 MG Tablet PO (20:48)
[2021-08-23] MEDS: Latanoprost 0.005% 1 Bottle 1 DRP EACH EYE (20:49)
[2021-08-23] MEDS: Dorzolamide 2% 10ml Bottle 1 DRP EACH EYE (20:50)
[2021-08-23] MEDS: Zolpidem Tartrate 5 MG Tablet 10 MG PO (22:37)
[2021-08-24] VITALS (15 sets, daily range): BP systolic 85–114; BP diastolic 65–86; PULSE 65–94; RESP 12–18; TEMP 36.6–36.8; O2SAT 96–100
[2021-08-24] MEDS: 0.9% Saline Lock 10 ML Syringe IV (04:56)
[2021-08-24] MEDS: Levothyroxine 50 MCG Tablet PO (04:57)
[2021-08-24] MEDS: Venlafaxine HCl 75 MG Tablet PO ×3 (04:57→21:43)
[2021-08-24 05:06] LABS: Bedside Glucose 83 mg/dL (70-110)
[2021-08-24 05:18] LABS: Absolute Lymphocyte Count 1.54 X10^3/uL (0.83-4.51); Absolute Neutrophil Count 2.5 X10^3/uL (2.0-7.7); Basophil# 0.04 X10^3/uL; Basophil% 0.9 % (0-1); Eosinophil# 0.28 X10^3/uL; Hematocrit 36.8 % (37-47); Hemoglobin 11.7 g/dL (12.0-15.0); Lymphocyte # 1.54 X10^3/ul (0.83-4.51); Mean Corp Hgb Conc 31.8 g/dL (32-36); Mean Corpuscular Hgb 30.1 pg (27.0-32.0); Mean Corpuscular Volume 94.6 fL (81-99); Monocyte# 0.35 X10^3/uL; Monocyte% 7.5 % (0-10); NRBC Flagged by Analyzer 0 % (0-5); Neutrophil # 2.45 X10^3/uL (2.7-7.7); Neutrophil % 52.4 % (47-70); Platelet Count 240 K/mm3 (150-450); RBC Distribution Width CV 13.7 % (11.6-14.6); RBC Distribution Width SD 48.3 fl (35.1-43.9); Red Blood Count 3.89 M/mm3 (4.2-5.4); White Blood Count 4.7 K/mm3 (4.4-11.0)
[2021-08-24 05:58] LABS: ALB/GLOB Ratio 1.1 RATIO (0.9-2.4); AST(SGOT) 14 U/L (15-37); Alanine Aminotransfer ALT/SGPT 39 U/L (13-56); Albumin, Serum 2.9 g/dL (3.2-5.0); Alkaline Phosphatase 80 U/L (45-117); Anion Gap 8 (5-15); BUN 16 mg/dL (7-18); BUN/Creat Ratio 21.3 RATIO (10-20); Calcium,Total 8.8 mg/dL (8.5-10.1); Chloride 113 mmol/L (98-107); Cholesterol 238 mg/dL (200); Creatinine, Serum 0.75 mg/dL (0.55-1.02); EST Glomerular Filtration Rate 83 mL/min (>60); Est Glom Filt Rate - Afr Amer 101 mL/min (>60); Estimated Creatinine Clearance 68.02 ml/min; Globulin 2.7 g/dL (2.2-4.2); Glucose 84 mg/dL (74-106); High Density Lipoprotein 82 mg/dL; Magnesium 2.4 mg/dL (1.6-2.6); Potassium 3.9 mmol/L (3.5-5.1); Protein, Total 5.6 g/dL (6.4-8.2); Sodium Level 144 mmol/L (136-145); Thyroid Stim Hormone (TSH) 1.01 uIU/mL (0.358-3.74); Triglycerides 60 mg/dL; Very Low Density Lipoprotein 12 mg/dL (5-40)
--- NOTE | 2021-08-24 09:00 | MRI_ITS ---
STUDY: MRI BRAIN WITHOUT CONTRAST REASON FOR EXAM: Female, 60 years old. TIA TECHNIQUE: Standardized multiplanar fat and water weighted pulse sequences were obtained. COMPARISON: 23 August 2020 FINDINGS: Brain parenchyma is intact without focal lesions, mass effect, extra parenchymal fluid collections, hydrocephalus or herniation. Major vascular flow structures are intact. Craniocervical junction is unremarkable. MRI/Brain without Contrast IMPRESSION: 1. Unremarkable brain MRI. Electronically Signed: Vira Manzo MD at 15:41 EST Tel , Service support ,
[2021-08-24] MEDS: Timolol 0.5% 5ML OPTH.BTL 1 DRP EACH EYE (09:05)
[2021-08-24] MEDS: Dorzolamide 2% 10ml Bottle 1 DRP EACH EYE ×2 (09:05→21:45)
[2021-08-24] MEDS: Gabapentin 300 MG Capsule PO ×3 (09:06→16:24)
[2021-08-24] MEDS: Enoxaparin 40 MG/0.4 ML Syringe SC (09:06)
[2021-08-24] MEDS: Aspirin 325 MG Tablet PO (09:06)
[2021-08-24] MEDS: Pantoprazole Sodium 40 MG Tablet PO ×2 (09:06→21:43)
[2021-08-24] MEDS: Folic Acid 1 MG Tablet PO (09:06)
[2021-08-24] MEDS: cycloBENZAPRine HCl 5 MG TABLET PO ×2 (09:09→16:24)
[2021-08-24] MEDS: Rizatriptan Benzoate 10 MG Tablet PO (12:23)
[2021-08-24] MEDS: 0.9% Normal Saline 1,000 ML 100 ML IV (12:25)
[2021-08-24 15:14] LABS: Hemoglobin A1c 5.7 % (3.8-5.6)
--- NOTE | 2021-08-24 15:46 | TELEMED_ITS ---
[facility] has confirmed receipt of a request for visit. This document confirms receipt of the order initiating the consult. To find the results of the consultation, please view the patient's reports for the scanned Telemed Consult.
--- NOTE | 2021-08-24 15:47 | PN.HOSP_ITS ---
Documented by User: Tu CALVO 08/24/21 17:51 Subjective Subjective Patient is a 60-year-old female comfortably resting in a chair, alert and orient x3. Patient still has some ongoing slurred speech, but denies of the left-sided numbness/tingling. Denies development of any new symptoms overnight. Does not appear in acute distress. Objective Data Objective Data Vital Signs: Vital Signs Temp Pulse Resp BP Pulse Ox 97.9 F 85 12 105/73 100 08/24/21 13:29 08/24/21 15:13 08/24/21 13:29 08/24/21 13:29 08/24/21 13:29 Oxygen Delivery Method Room Air Weight: 139 lb 8 oz Body Mass Index (BMI) 23.9 Intake & Output: Intake and Output for Last 24 Hours 08/22/21 08/23/21 08/24/21 23:59 23:59 23:59 Intake Total 120 / 340 740 / 740 Balance 120 / 340 740 / 740 Lab / Micro Data Result Diagrams: 08/24/21 04:52 08/24/21 04:52 Labs: Laboratory Results - last 24 hr 08/23/21 13:15: Folate 7.60 08/23/21 17:45: POC Glucose 116 H 08/24/21 04:52: Sodium 144, Potassium 3.9, Chloride 113 H, Carbon Dioxide 23.0, Anion Gap 8, BUN 16, Creatinine 0.75, Estim Creat Clear Calc 68.02, Est GFR (MDRD) Af Amer 101, Est GFR (MDRD) Non-Af 83, BUN/Creatinine Ratio 21.3 H, Glucose 84, Calcium 8.8, Magnesium 2.4, Total Bilirubin 0.20, AST 14 L, ALT 39, Alkaline Phosphatase 80, Total Protein 5.6 L, Albumin 2.9 L, Globulin 2.7, Albumin/Globulin Ratio 1.1, Triglycerides 60, Cholesterol 238 H, LDL Cholesterol 144 H, VLDL Cholesterol 12, HDL Cholesterol 82, TSH 1.01 08/24/21 04:52: Free T4 0.80 08/24/21 04:52: WBC 4.7, RBC 3.89 L, Hgb 11.7 L, Hct 36.8 L, MCV 94.6, MCH 30.1, MCHC 31.8 L, RDW Std Deviation 48.3 H, RDW Coeff of Lobo 13.7, Plt Count 240, MPV 9.0, Immature Gran % (Auto) 0.200, Neut % (Auto) 52.4, Lymph % (Auto) 33.0, [place] % (Auto) 7.5, Eos % (Auto) 6.0 H, Baso % (Auto) 0.9, Absolute Neuts (auto) 2.5, Absolute Lymphs (auto) 1.54, Nucleated RBC % 0 08/24/21 04:52: Hemoglobin A1c 5.7 H 08/24/21 04:55: POC Glucose 83 Radiography Diagnostic Testing: Radiology Impression Brain MRI 08/24/21 09:00 IMPRESSION: 1. Unremarkable brain MRI. Electronically Signed: Vira Manzo MD at 15:41 EST Tel , Service support , Rhythm Strip Rhythm Strip: Sinus Rhythm Rate: 70 Ectopy: None Physical Exam Const alert, oriented x3 and no apparent distress HEENT head/scalp atraumatic and moist oral mucous membranes Head and Scalp: normocephalic Eyes PERRL, EOMs intact bilaterally and conjunctivae normal Neck no lymphadenopathy, supple and no JVD Resp normal respiratory effort, no retractions and no use of accessory muscles Cardio regular rate, regular rhythm, no murmurs and no JVD GI normal to inspection, nondistended, normoactive bowel sounds, soft to palpation and non-tender Extremity normal to inspection, full ROM and no clubbing, cyanosis or edema Skin no rashes or lesions noted, no wounds, skin turgor normal and no jaundice Neuro Neuro Narrative: Patient still with mild slurred speech, no other focal neurological deficits noted. Psych affect normal Assessment & Plan Assessment/Plan (1) Brain TIA: PLAN: Day 1 Discharge planning: Current plan is for patient to discharge home when medically ready. 1) slurred speech Considering possible TIA. Brain MRI did not demonstrate any evidence of acute ischemia or infarction. TSH and folate within normal limits, B12 pending. Fasting lipid panel shows cholesterol at 238 and LDL cholesterol at 144. SOC consult ordered and believes that patient is suffering from episodes of partial seizures. Recommendations are to obtain an EEG while patient is admitted, if EEG is negative recommendations are patient to have an outpatient neurology follow-up with ambulatory EEG reading. Plan; discontinue NIHSS, echocardiogram, decrease aspirin to 81 mg daily, initiate Lipitor 40 mg p.o. nightly and EEG in a.m. 2) prediabetes Hemoglobin A1c 5.7, which puts patient in prediabetic range. Continue Metformin, continue carb consistent diet. 3) HTN Continue amlodipine and lisinopril. 4) glaucoma Continue timolol and latanoprost. 5) hypothyroidism TSH within normal limits, continue Synthroid. 6) insomnia/anxiety Continue venlafaxine and Ambien. DVT prophylaxis - Lovenox Patient seen by Tu Cobos PA-C, under the supervision of Dr. Espinoza. Time spent on patient care: 10 minutes. Documented by User: Dr. Kesha Espinoza MD 08/24/21 17:57 Objective Data Lab / Micro Data Result Diagrams: 08/24/21 04:52 08/24/21 04:52 Charges/Coding Addendum Addendum: This patient was seen in conjunction with UMESH Tamayo. I have independently interviewed and examined the patient and reviewed pertinent historical, laboratory, and other data. Please refer to UMESH Tamayo's note for his patient's presentation, findings, and recommendations. I have reviewed and his note and concur with his documentation Patient was seen and examined. Her tingling and numbness has resolved. She gives a history of migraines. Patient had history of TIA before. Vitals reviewed, blood pressure was low with systolic in the 80s. Patient received gentle IV fluids. Her blood pressure meds were held Labs reviewed -unremarkable MRI of the brain was unremarkable. Physical Exam: Gen: Comfortable, not pale, not jaundiced CVS:HS I +II, regular, no murmurs RESP: Diminished at lung bases GI: BS present and normal, soft, nontender, no palpable organs EXT:No edema ASSESSMENT: 1. TIA 2. Hypotension, history of hypertension 3. History of migraine 4. Hypertension 5. Hypothyroidism 6. Anxiety/insomnia Plan: Consult SOC Continue to hold blood pressure medications Reassess in a.m. Time spent coordinating patient's care, discussing with nursing, discussing with teleneurology: 26 minutes Visit Charges Inpatient E&M: 97684 Subs Hosp L3
[2021-08-24] MEDS: Atorvastatin Calcium 40 MG Tablet PO (21:43)
[2021-08-24] MEDS: Topiramate 100 MG Tablet PO (21:43)
[2021-08-24] MEDS: Zolpidem Tartrate 5 MG Tablet 10 MG PO (21:43)
[2021-08-24] MEDS: Latanoprost 0.005% 1 Bottle 1 DRP EACH EYE (21:45)
[2021-08-25 03:20] VITALS: PULSE 70
[2021-08-25 04:00] VITALS: BP 110/84; PULSE 72; RESP 16; TEMP 36.8; O2SAT 99
[2021-08-25] MEDS: Venlafaxine HCl 75 MG Tablet PO ×2 (06:11→13:40)
[2021-08-25] MEDS: cycloBENZAPRine HCl 5 MG TABLET PO (06:11)
[2021-08-25] MEDS: Levothyroxine 50 MCG Tablet PO (06:11)
[2021-08-25 06:50] LABS: ALB/GLOB Ratio 1.1 RATIO (0.9-2.4); AST(SGOT) 11 U/L (15-37); Alanine Aminotransfer ALT/SGPT 31 U/L (13-56); Albumin, Serum 2.8 g/dL (3.2-5.0); Alkaline Phosphatase 69 U/L (45-117); Anion Gap 5 (5-15); BUN 18 mg/dL (7-18); BUN/Creat Ratio 21.2 RATIO (10-20); Calcium,Total 8.6 mg/dL (8.5-10.1); Chloride 113 mmol/L (98-107); Creatinine, Serum 0.85 mg/dL (0.55-1.02); EST Glomerular Filtration Rate 72 mL/min (>60); Est Glom Filt Rate - Afr Amer 87 mL/min (>60); Estimated Creatinine Clearance 60.02 ml/min; Globulin 2.5 g/dL (2.2-4.2); Glucose 96 mg/dL (74-106); Potassium 4.1 mmol/L (3.5-5.1); Protein, Total 5.3 g/dL (6.4-8.2); Sodium Level 144 mmol/L (136-145)
[2021-08-25 07:58] VITALS: PULSE 99
[2021-08-25 08:29] LABS: Vitamin B12 355 pg/mL (211-911)
[2021-08-25] MEDS: Dorzolamide 2% 10ml Bottle 1 DRP EACH EYE (08:56)
[2021-08-25] MEDS: Lisinopril 10 MG Tablet PO (08:57)
[2021-08-25] MEDS: Enoxaparin 40 MG/0.4 ML Syringe SC (08:57)
[2021-08-25] MEDS: Timolol 0.5% 5ML OPTH.BTL 1 DRP EACH EYE (08:57)
[2021-08-25] MEDS: Folic Acid 1 MG Tablet PO (08:58)
[2021-08-25] MEDS: Pantoprazole Sodium 40 MG Tablet PO (08:58)
[2021-08-25] MEDS: Gabapentin 300 MG Capsule PO ×3 (08:58→16:54)
[2021-08-25] MEDS: amLODIPine 5 MG Tablet PO (08:59)
[2021-08-25] MEDS: metFORMIN HCl 500 MG Tablet PO (09:03)
[2021-08-25] MEDS: Ferrous Sulfate 325 MG Tablet PO (09:03)
[2021-08-25] MEDS: Aspirin 81 MG TAB.CHEW PO (09:05)
[2021-08-25 10:00] VITALS: BP 105/97; PULSE 89; RESP 16; TEMP 36.7; O2SAT 99
--- NOTE | 2021-08-25 11:25 | CASEMGMT ---
MAGDIEL MILLIGAN assessment: Face to face with pt for initial transition planning/care coordination assessment. MAGDIEL MILLIGAN introduced self and role at [facility], pt voices understanding and consents to assessment. Pt is walking around room and stands during assessment. Pt is on room air in no distress. Pt is A/Ox4 and answers questions appropriately. Pt's is at bedside during assessment. Care providers, pharmacy, and demographics verified. Presentation: Pt c/o left facial numbness that moved to leg and 'loss of time' Admitting dx: TIA PCP: Monik Specialists: Pt has the following [facility] physicians: neuro, psych, and PM [facility] Insurance: [place] Prescription Benefit: [place] Living Will/HPOA: Pt states does not have LW/HPOA but would like to complete AD's at this time. Alvin SW aware, voices understanding. LNOK: Michael Rosales, Living Arrangements: Pt states lives with in 2 story home and states no concerns at home. Pt is independent with ADL's. Transportation: Pt states drives and states no transportation concerns. DME/HHC: Pt states no current DME or need for any further DME. Pt states has had [facility] in past and been to [facility] Pt states no hx of SNF. Pt states no concerns with going home at time of discharge. 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 Pt states does not smoke cigarettes or drink ETOH. Pt states no further concerns/needs. CM to follow for any further discharge planning/needs. Advised pt to ask for CM if any further questions/concerns/needs arise, voices understanding. Pt Goal: Home Plan[place] MAGDIEL MILLIGAN
--- NOTE | 2021-08-25 13:36 | PCM.DC ---
Discharge Instructions Diet Discharge Diet: No restrictions Activity Discharge Activity: Return to Normal Activity Weight Bearing Status: Weight bearing as tolerated Dressing / Incision Call your doctor if you observe: Fever of 101 or Higher, Numbness or Tingling, Shortness of breath, Dizziness, Chest pain, Increased palpitations (irregular heartbeat) and Calf discomfort Follow Up Care Please Follow Up With: Primary care provider When: Within the next two weeks. Test Results: Test results from this visit will be discussed in further detail at your follow-up appointment, if applicable. Discharge Plan Admission Admit Date/Time: 08/23/21 14:43 Primary Reason for Your Visit: Stroke like symptoms. Attending Provider: Katherine Fritz Primary Care Provider: Angelo Ruggiero Instructions Additional Instructions / Restrictions: * Do not drive until cleared to do so by your outpatient Neurologist. Discharge Orders/Prescriptions Prescriptions: Continued ferrous sulfate [Feosol] 325 mg (65 mg iron) tablet 325 mg PO QDAY RF: 0 cyanocobalamin (vitamin B-12) 1,000 mcg/mL solution 100 mcg IM QMONTH RF: 0 lisinopril 10 mg tablet 10 mg PO DAILY Qty: 90 RF: 5 levothyroxine 50 MCG tablet 50 mcg PO DAILY RF: 0 pantoprazole 40 MG tablet 40 mg PO BID RF: 0 zolpidem 10 MG tablet 10 mg PO QHS RF: 0 latanoprost 1 DROP bottle 1 drp EACH EYE QHS RF: 0 rizatriptan 10 MG tablet,disintegrating 10 mg PO DAILY PRN PRN (Reason: Headache) RF: 0 ascorbic acid (vitamin C) 1,000 mg tablet 4 g PO DAILY RF: 0 cholecalciferol (vitamin D3) 1,000 unit tablet 1,000 unit PO DAILY RF: 0 metformin 500 mg Tablet 500 mg PO DAILY RF: 0 venlafaxine 75 mg Tablet 75 mg PO TID RF: 0 amlodipine 5 mg tablet 5 mg PO DAILY RF: 0 lorazepam 0.5 mg Tablet 0.5 mg PO DAILY PRN (Reason: Anxiety) RF: 0 folic acid 1 mg Tablet 1 mg PO DAILY RF: 0 clobetasol 0.05 % Ointment 1 applic TOPICAL DAILY RF: 0 topiramate 100 mg Tablet 100 mg PO QHS RF: 0 cyclobenzaprine 5 mg Tablet 5 mg PO TID PRN (Reason: Spasms) RF: 0 gabapentin 300 mg Tablet 300 mg PO TID RF: 0 timolol maleate 0.5 % Drops, Once Daily 1 drp EACH EYE DAILY RF: 0 loratadine 10 mg Capsule 10 mg PO DAILY RF: 0 dorzolamide (PF) 2 % Drops 1 drp EACH EYE BID RF: 0 hydroxyzine pamoate 25 mg capsule 50 mg PO TID RF: 0 Referrals / Follow Up: Angelo Ruggiero MD [Primary Care Provider] - Within 2 Weeks Charli Rothman MD [NON-STAFF] - Within 2 Weeks (Establish care for outpatient neurology follow up. ) Disposition Disposition (needs filled in before D/C Order can be placed): Home, Self Care
[2021-08-25] MEDS: Acetaminophen 325 MG Tablet 650 MG PO (13:39)
--- NOTE | 2021-08-25 13:52 | DS.PCM_ITS ---
Documented by User: Tu CALVO 08/25/21 17:27 Providers Date of Admission: 08/23/21 Date of Discharge: 08/25/21 Primary Care Physician: Dr. Angelo Ruggiero MD Reason For Visit: TIA Diagnosis Discharge Diagnosis (1) Brain TIA: Status: Acute Code(s): G45.9 - Transient cerebral ischemic attack, unspecified Medications at Discharge Home Medications levothyroxine 50 mcg PO DAILY 07/24/13 pantoprazole 40 mg PO BID 07/24/13 zolpidem 10 mg PO QHS 07/24/13 latanoprost 1 drp EACH EYE QHS 12/16/15 rizatriptan 10 mg PO DAILY PRN PRN 12/16/15 ascorbic acid (vitamin C) 1,000 mg tablet 4 g PO DAILY tab 12/30/17 cholecalciferol (vitamin D3) 25 mcg (1,000 unit) tablet 1,000 unit PO DAILY tab 12/30/17 ferrous sulfate 325 mg (65 mg iron) tablet 325 mg PO QDAY tab 12/30/17 cyanocobalamin (vitamin B-12) 1,000 mcg/mL injection solution 100 mcg IM QMONTH 07/26/19 lisinopril 10 mg tablet 10 mg PO DAILY #90 tab 07/26/19 amlodipine 5 mg PO DAILY 08/23/21 clobetasol 1 applic TOPICAL DAILY 08/23/21 cyclobenzaprine 5 mg PO TID PRN 08/23/21 dorzolamide (PF) 1 drp EACH EYE BID 08/23/21 folic acid 1 mg PO DAILY 08/23/21 gabapentin 300 mg PO TID 08/23/21 hydroxyzine pamoate 50 mg PO TID 08/23/21 loratadine 10 mg PO DAILY 08/23/21 lorazepam 0.5 mg PO DAILY PRN 08/23/21 metformin 500 mg PO DAILY 08/23/21 timolol maleate 1 drp EACH EYE DAILY 08/23/21 topiramate 100 mg PO QHS 08/23/21 venlafaxine 75 mg PO TID 08/23/21 Hospital Course Summary of Care Provided Minutes Spent on Discharge: 25 Hospital Course: Patient is a 60-year-old female who presented to the hospital on 08/23/2021 with a chief complaint of slurred speech, left facial droop and left-sided numbness/tingling. Patient was admitted for evaluation and managemen t of strokelike symptoms. 1) slurred speech Stroke ruled out, SOC consult obtained which were to obtain the EEG. EEG was abnormal and demonstrated bifrontal slowing of unclear significance with poss ible cerebral dysfunction or asymmetric drowsing pattern. Recommendations are that patient be discharged for oupatient neurology follow up and additional EEG, continue baby aspirin, initiate continue Lipitor and follow-up with Dr. Rothman as soon as possible. 2) prediabetes Continue Metformin. 3) HTN Continue amlodipine and lisinopril. 4) glaucoma Continue timolol and latanoprost. 5) hypothyroidism TSH within normal limits, continue Synthroid. 6) insomnia/anxiety Continue venlafaxine and Ambien. Patient seen by Tu Cobos PA-C, under the supervision of Dr. Fritz. Time spent on patient care: 25 minutes. Physical Exam Narrative Patient is a 60-year-old female comfortably sitting in a chair, alert and orient x3. Denies development of any new symptoms overnight. Does not appear in acute distress. Const alert, oriented x3 and no apparent distress HEENT normocephalic, head/scalp atraumatic and hearing grossly normal bilaterally Eyes PERRL, EOMs intact bilaterally and conjunctivae normal Neck no lymphadenopathy, supple and no JVD Resp normal respiratory effort, no retractions, no use of accessory muscles and clear to auscultation bilaterally Cardio regular rate, regular rhythm, no murmurs and no JVD GI normal to inspection, nondistended, normoactive bowel sounds, soft to palpation and non-tender Extremity normal to inspection, full ROM and no clubbing, cyanosis or edema Skin no rashes or lesions noted, no wounds and skin turgor normal Neuro CN's II-XII intact bilaterally Psych affect normal Weight / BMI Weight Weight: 139 lb 8 oz Body Mass Index (BMI) 23.9 ABG / Lab / Microbiology Data Result Diagrams: 08/24/21 04:52 08/25/21 05:58 Laboratory: Laboratory Results - last 24 hr 08/23/21 13:15: Vitamin B12 355 08/24/21 04:52: Hemoglobin A1c 5.7 H 08/25/21 05:58: Sodium 144, Potassium 4.1, Chloride 113 H, Carbon Dioxide 26.0, Anion Gap 5, BUN 18, Creatinine 0.85, Estim Creat Clear Calc 60.02, Est GFR (MDRD) Af Amer 87, Est GFR (MDRD) Non-Af 72, BUN/Creatinine Ratio 21.2 H, Glucose 96, Calcium 8.6, Total Bilirubin 0.30, AST 11 L, ALT 31, Alkaline Phosphatase 69, Total Protein 5.3 L, Albumin 2.8 L, Globulin 2.5, Albumin/Globulin Ratio 1.1 Radiography Diagnostic Testing: Radiology Impression Brain MRI 08/24/21 09:00 IMPRESSION: 1. Unremarkable brain MRI. Electronically Signed: Vira Manzo MD at 15:41 EST Tel , Service support , D/C Instructions Discharge Diet: No restrictions Weight Bearing Status: Weight bearing as tolerated Call your doctor if you observe: Fever of 101 or Higher, Numbness or Tingling, Shortness of breath, Dizziness, Chest pain, Increased palpitations (irregular heartbeat) and Calf discomfort Please Follow Up With: Primary care provider When: Within the next two weeks. Meaningful Use Info Meaningful Use Diagnoses (Choose all that apply): None applicable Discharge Plan Admission Admit Date/Time: 08/23/21 14:43 Primary Reason for Your Visit: Stroke like symptoms. Attending Provider: Katherine Fritz Primary Care Provider: Angelo Ruggiero Instructions Additional Instructions / Restrictions: * Do not drive until cleared to do so by your outpatient Neurologist. Discharge Orders/Prescriptions Prescriptions: Continued ferrous sulfate [Feosol] 325 mg (65 mg iron) tablet 325 mg PO QDAY RF: 0 cyanocobalamin (vitamin B-12) 1,000 mcg/mL solution 100 mcg IM QMONTH RF: 0 lisinopril 10 mg tablet 10 mg PO DAILY Qty: 90 RF: 5 levothyroxine 50 MCG tablet 50 mcg PO DAILY RF: 0 pantoprazole 40 MG tablet 40 mg PO BID RF: 0 zolpidem 10 MG tablet 10 mg PO QHS RF: 0 latanoprost 1 DROP bottle 1 drp EACH EYE QHS RF: 0 rizatriptan 10 MG tablet,disintegrating 10 mg PO DAILY PRN PRN (Reason: Headache) RF: 0 ascorbic acid (vitamin C) 1,000 mg tablet 4 g PO DAILY RF: 0 cholecalciferol (vitamin D3) 1,000 unit tablet 1,000 unit PO DAILY RF: 0 metformin 500 mg Tablet 500 mg PO DAILY RF: 0 venlafaxine 75 mg Tablet 75 mg PO TID RF: 0 amlodipine 5 mg tablet 5 mg PO DAILY RF: 0 lorazepam 0.5 mg Tablet 0.5 mg PO DAILY PRN (Reason: Anxiety) RF: 0 folic acid 1 mg Tablet 1 mg PO DAILY RF: 0 clobetasol 0.05 % Ointment 1 applic TOPICAL DAILY RF: 0 topiramate 100 mg Tablet 100 mg PO QHS RF: 0 cyclobenzaprine 5 mg Tablet 5 mg PO TID PRN (Reason: Spasms) RF: 0 gabapentin 300 mg Tablet 300 mg PO TID RF: 0 timolol maleate 0.5 % Drops, Once Daily 1 drp EACH EYE DAILY RF: 0 loratadine 10 mg Capsule 10 mg PO DAILY RF: 0 dorzolamide (PF) 2 % Drops 1 drp EACH EYE BID RF: 0 hydroxyzine pamoate 25 mg capsule 50 mg PO TID RF: 0 Referrals / Follow Up: Angelo Ruggiero MD [Primary Care Provider] - Within 2 Weeks Charli Rothman MD [NON-STAFF] - Within 2 Weeks (Establish care for outpatient neurology follow up. ) Disposition Disposition (needs filled in before D/C Order can be placed): Home, Self Care Documented by User: Dr. Katherine Fritz MD 08/25/21 16:35 Providers Date of Admission: 08/23/21 Reason For Visit: TIA Medications at Discharge Home Medications levothyroxine 50 mcg PO DAILY 07/24/13 pantoprazole 40 mg PO BID 07/24/13 zolpidem 10 mg PO QHS 07/24/13 latanoprost 1 drp EACH EYE QHS 12/16/15 rizatriptan 10 mg PO DAILY PRN PRN 12/16/15 ascorbic acid (vitamin C) 1,000 mg tablet 4 g PO DAILY tab 12/30/17 cholecalciferol (vitamin D3) 25 mcg (1,000 unit) tablet 1,000 unit PO DAILY tab 12/30/17 ferrous sulfate 325 mg (65 mg iron) tablet 325 mg PO QDAY tab 12/30/17 cyanocobalamin (vitamin B-12) 1,000 mcg/mL injection solution 100 mcg IM QMONTH 07/26/19 lisinopril 10 mg tablet 10 mg PO DAILY #90 tab 07/26/19 amlodipine 5 mg PO DAILY 08/23/21 clobetasol 1 applic TOPICAL DAILY 08/23/21 cyclobenzaprine 5 mg PO TID PRN 08/23/21 dorzolamide (PF) 1 drp EACH EYE BID 08/23/21 folic acid 1 mg PO DAILY 08/23/21 gabapentin 300 mg PO TID 08/23/21 hydroxyzine pamoate 50 mg PO TID 08/23/21 loratadine 10 mg PO DAILY 08/23/21 lorazepam 0.5 mg PO DAILY PRN 08/23/21 metformin 500 mg PO DAILY 08/23/21 timolol maleate 1 drp EACH EYE DAILY 08/23/21 topiramate 100 mg PO QHS 08/23/21 venlafaxine 75 mg PO TID 08/23/21 ABG / Lab / Microbiology Data Result Diagrams: 08/24/21 04:52 08/25/21 05:58 Discharge Plan Admission Admit Date/Time: 08/23/21 14:43 Primary Reason for Your Visit: Stroke like symptoms. Attending Provider: Katherine Fritz Primary Care Provider: Angelo Ruggiero Instructions Additional Instructions / Restrictions: * Do not drive until cleared to do so by your outpatient Neurologist. Discharge Orders/Prescriptions Prescriptions: Continued ferrous sulfate [Feosol] 325 mg (65 mg iron) tablet 325 mg PO QDAY RF: 0 cyanocobalamin (vitamin B-12) 1,000 mcg/mL solution 100 mcg IM QMONTH RF: 0 lisinopril 10 mg tablet 10 mg PO DAILY Qty: 90 RF: 5 levothyroxine 50 MCG tablet 50 mcg PO DAILY RF: 0 pantoprazole 40 MG tablet 40 mg PO BID RF: 0 zolpidem 10 MG tablet 10 mg PO QHS RF: 0 latanoprost 1 DROP bottle 1 drp EACH EYE QHS RF: 0 rizatriptan 10 MG tablet,disintegrating 10 mg PO DAILY PRN PRN (Reason: Headache) RF: 0 ascorbic acid (vitamin C) 1,000 mg tablet 4 g PO DAILY RF: 0 cholecalciferol (vitamin D3) 1,000 unit tablet 1,000 unit PO DAILY RF: 0 metformin 500 mg Tablet 500 mg PO DAILY RF: 0 venlafaxine 75 mg Tablet 75 mg PO TID RF: 0 amlodipine 5 mg tablet 5 mg PO DAILY RF: 0 lorazepam 0.5 mg Tablet 0.5 mg PO DAILY PRN (Reason: Anxiety) RF: 0 folic acid 1 mg Tablet 1 mg PO DAILY RF: 0 clobetasol 0.05 % Ointment 1 applic TOPICAL DAILY RF: 0 topiramate 100 mg Tablet 100 mg PO QHS RF: 0 cyclobenzaprine 5 mg Tablet 5 mg PO TID PRN (Reason: Spasms) RF: 0 gabapentin 300 mg Tablet 300 mg PO TID RF: 0 timolol maleate 0.5 % Drops, Once Daily 1 drp EACH EYE DAILY RF: 0 loratadine 10 mg Capsule 10 mg PO DAILY RF: 0 dorzolamide (PF) 2 % Drops 1 drp EACH EYE BID RF: 0 hydroxyzine pamoate 25 mg capsule 50 mg PO TID RF: 0 Referrals / Follow Up: Angelo Ruggiero MD [Primary Care Provider] - Within 2 Weeks Charli Rothman MD [NON-STAFF] - Within 2 Weeks (Establish care for outpatient neurology follow up. ) Disposition Disposition (needs filled in before D/C Order can be placed): Home, Self Care Charges/Coding Addendum Addendum: Patient seen by Tu Cobos PA-C under my supervision Patient is a 60 y/o female with a PMh as outlined who was admitted via the ED on 08/23/2021 with a complaint of slurred speech, left facial droop and left sided numbness and tingling. She was admitted to be managed for TIA. She had CT and MRI of the brain as well as CTA of the head and neck which ruled out a stroke or any hemodynamically significant stenosis. She had EEG which showed bifrontal slowing of unclear significance with possible cerebral dysfunction or asymmetric drowsing pattern. Neurology recommended outpatient follow up EEG. On will continue on aspirin and statin and to follow up with neurology on outpatient basis. She is to continue on metformin and amlodipine and lisinopril. O/E: Const alert, oriented x3 and no apparent distress HEENT normocephalic, head/scalp atraumatic and hearing grossly normal bilaterally Eyes PERRL, EOMs intact bilaterally and conjunctivae normal Neck no lymphadenopathy, supple and no JVD Resp normal respiratory effort, no retractions, no use of accessory muscles and clear to auscultation bilaterally Cardio regular rate, regular rhythm, no murmurs and no JVD GI normal to inspection, nondistended, normoactive bowel sounds, soft to palpation and non-tender Extremity normal to inspection, full ROM and no clubbing, cyanosis or edema Skin no rashes or lesions noted, no wounds and skin turgor normal Neuro CN's II-XII intact bilaterally Psych affect normal Plan is for discharge home today. Rest as per Tu MANLEYC;s note, which I have reviewed and endorsed. total time spent on patient's care and discharge today: 30 mins. Visit Charges OBSV E&M: 27349 Observation care discharge
--- NOTE | 2021-08-25 15:20 | CASEMGMT ---
MAGDIEL MILLIGAN assessment: Face to face with pt for initial transition planning/care coordination assessment. MAGDIEL MILLIGAN introduced self and role at [facility], pt voices understanding and consents to assessment. Pt is walking around room and stands during assessment. Pt is on room air in no distress. Pt is A/Ox4 and answers questions appropriately. Pt's is at bedside during assessment. Care providers, pharmacy, and demographics verified. Presentation: Pt c/o left facial numbness that moved to leg and 'loss of time' Admitting dx: TIA PCP: Mon[facility] Specialists: Pt has the following [facility] physicians: neuro, psych, and PM [facility] Insurance: [place] Prescription Benefit: [place] Living Will/HPOA: Pt states does have LW/HPOA and is aware that they are not on file at [facility]. Pt states her , Charli Centeno, is HPOA. LNOK: Charli Centeno, Living Arrangements: Pt states lives with in 2 story home and states no concerns at home. Pt is independent with ADL's. Transportation: Pt states drives and states no transportation concerns. DME/HHC: Pt states no current DME or need for any further DME. [facility] and [facility] to [facility]. Pt states no hx of SNF. Pt states no concerns with going home at time of discharge. 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 Pt states does not smoke cigarettes or drink ETOH. Pt states no further concerns/needs. CM to follow for any further discharge planning/needs. Advised pt to ask for CM if any further questions/concerns/needs arise, voices understanding. Pt Goal: Home Plan: [place] MAGDIEL MILLGIAN
--- NOTE | 2021-08-25 15:29 | CHAPLAIN ---
Type of Pastoral Visit _x__ Initial Visit ___ Follow-up Visit ___ On-call Visit ___ General Patient Visit ___ Spiritual Assessment ___ Family Conference ___ Bereavement ___ Rapid Response ___ Code Blue ___ Other (describe below) Pastoral Care Referral From _x__ Patient ___ Family ___ Nurse ___ Physician ___ Quality Internship ___ Generator Switchboard Operator ___ Other (describe below) Sacrament/Intervention ___ Active listening ___ Anointing ___ Faith ___ Bereavement ___ Communion ___ Tram exploration ___ ___ Life review _x__ Prayer ___ Reconciliation ___ Sacrament of Sick _x__ Supportive presence ___ Wedding ___ Other (describe below) Pastoral Comments patient and spouse together in room and seated in chairs; pt expects to go home today; pt welcomes prayer; no other needs identified
[2021-08-25 16:00] VITALS: BP 103/74; PULSE 75; RESP 16; TEMP 36.7; O2SAT 99
[2021-08-25] MEDS: LORazepam 0.5 MG Tablet PO (16:54)
== END 2021-08-25 18:05 | disposition home or self-care (01) | DRG 69 ==
LOC: ED 13:41 → PCU 08-24 07:06
PROVIDERS: Physician Assistant; Admitting Provider Hospitalist; Emergency Provider Emergency Medicine; PCP Family Medicine; Visit Provider Student in an Organized Health Care Education/Training Program
DX: G45.9 Transient cerebral ischemic attack, unspecified (principal); H34.83 Tributary (branch) retinal vein occlusion; R47.01 Aphasia; R47.81 Slurred speech; R94.01 Abnormal electroencephalogram [EEG]; I95.9 Hypotension, unspecified; I10 Essential (primary) hypertension; D64.9 Anemia, unspecified; E03.9 Hypothyroidism, unspecified; M19.90 Unspecified osteoarthritis, unspecified site; H40.9 Unspecified glaucoma; F41.9 Anxiety disorder, unspecified; R41.89 Other symptoms and signs involving cognitive functions and awareness; G47.00 Insomnia, unspecified; R73.03 Prediabetes; R20.2 Paresthesia of skin; M81.0 Age-related osteoporosis without current pathological fracture; Z79.890 Hormone replacement therapy; Z79.84 Long term (current) use of oral hypoglycemic drugs; Z98.84 Bariatric surgery status
CPT/HCPCS: 0064A; 36415; 70450; 70496; 70498; 70551; 71045; 80048; 80053; 80061; 82607; 82746; 82962; 83036; 83735; 84439; 84443; 84484; 85025; 85610; 85730; 91306; 93005; 95819; 96360; 96361; 96372; 99218; 99285; J7030; Q9967; A4216; G0378

== ENCOUNTER 2022-08-24 07:00 | Outpatient (RCR) | payer SELFPAY ==
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
--- NOTE | 2022-08-24 07:31 | HP.PTDCSUM ---
It has been my pleasure to treat TOMAS Anthony OLDER referred by KEN SARAVIA, with the diagnosis of R knee traumatic OA, R LE pain. for a total of 4 visit(s). Discharge Date: 08/24/22 Please see the following information for a summary of their discharge status. Subjective: Getting exercises in for the last three weeks. Doing machines out in the gym 1x/week because I do not want to get out of bed. Does work out at home on the off days . Not seeing any benefits from her workout. R leg pain Pain Intensity (Out of 10): 5 % Improvement: 0 Objective/Function: 5 second TUG. great function and ROM and symmetrical strength. Pt frustrated with pain which is not improving and no worse later in day but more aggravating late in day as she has to deal with it all aday. Goal 1:: I approp HEP to manage symptoms. Goal Progress: Goal Met Goal 2:: Pain 2/10 at end of day instead of 5+ Goal Progress: Not Progressing Plan: d/c Discharge Comments: Pt to continue I and deal with pain management for pain complaints If there are questions or concerns regarding this patient's physical therapy, please feel free to call me at [phone]. Thank you for the referral of this patient. Sincerely, Hussein Lund, DPT, OCS, CSCS Balance/Gait/Functional tests - Balance/Special Test Scores Functional Gait Assessment Score: 30 % Disability: 0 Lower Extremity Functional Score: 49 TUG Test Time Seconds: 5 30 Second Chair Rise Test Seconds: 17
== END 2022-08-24 10:28 | disposition home or self-care (01) ==
LOC: PT 07:00
PROVIDERS: PCP Family Medicine
DX: M12.561 Traumatic arthropathy, right knee (principal); G57.11 Meralgia paresthetica, right lower limb; G89.29 Other chronic pain
CPT/HCPCS: 97110; 97162; 97164

== ENCOUNTER 2023-04-19 22:31 | Emergency (ER) | payer OTHER, SELFPAY ==
[2023-04-19 22:32] VITALS: BP 90/70; PULSE 75; RESP 16; TEMP 35.9; O2SAT 98; BMI 25.4
--- NOTE | 2023-04-19 22:51 | EKG12_ITS ---
Test Reason : DYSRHYTHMIA Blood Pressure : / mmHG Vent. Rate : 070 BPM Atrial Rate : 070 BPM P-R Int : 148 ms QRS Dur : 080 ms QT Int : 416 ms P-R-T Axes : 029 012 029 degrees QTc Int : 449 ms Normal sinus rhythm Normal ECG Confirmed by JAVY GIMENEZ, ORQUIDEA ([id number]), assistant film editor HAN FRENCH ([id number]) on 04/23/2023 11:37:45 AM Referred By: Confirmed By:ORQUIDEA PALAFOX MD
--- NOTE | 2023-04-19 22:51 | CT_ITS ---
STUDY: CT BRAIN WITHOUT CONTRAST REASON FOR EXAM: Female, 62 years old. Head injury, Syncope RADIATION DOSAGE (If Supplied By Facility): CTDIvol = ( 44.99 ) mGy, DLP = ( 829.85 ) mGycm TECHNIQUE: Transaxial CT imaging of the brain was performed without administration of intravenous contrast material. Individualized dose optimization techniques were used for this CT. COMPARISON: 08/23/2021. FINDINGS: Normal soft tissue structures. Normal calvarium. Normal size ventricles and extra-axial spaces for the patient''s age. Normal white matter tracts of the cerebral hemispheres. Normal basal ganglia and thalami. Normal brainstem. Normal cerebellum. There is no intracranial hemorrhage. There are no findings of an acute ischemic infarction. Normal visualized paranasal sinuses. CT/Brain/Head without Contrast IMPRESSION: Normal unenhanced CT scan of the brain. Electronically Signed: Sarah Mancini MD at 23:26 EDT Reading Location ID and State: [id number] / Tel , Service support ,
--- NOTE | 2023-04-19 22:51 | RAD_ITS ---
INDICATION: pain, trauma EXAMINATION/TECHNIQUE: X-RAY - XR Ribs Unilateral W/ PA Chest Min 3 Views COMPARISON: FINDINGS: SOFT TISSUES: No soft tissue swelling or gas. BONES: No displaced fracture. No sclerotic or destructive changes observed. VISUALIZED LUNGS: Clear. No pneumothorax. RAD/Ribs Uni Min 3V w/PA Chest IMPRESSION: No evidence of displaced rib fracture. Electronically Signed: Sarah Mancini MD at 23:35 EDT Reading Location ID and State: [id number] / Tel , Service support ,
[2023-04-19 23:01] LABS: Bedside Glucose 74 mg/dL (74-106)
[2023-04-19] MEDS: 0.9% Normal Saline 1,000 ML 1000 ML IV (23:01)
[2023-04-19 23:04] VITALS: BP 116/81; O2SAT 98
--- NOTE | 2023-04-19 23:05 | EDS_ITS ---
HPI HPI - Fall History of Present Illness Chief Complaint: Fall Narrative Narrative: 62-year-old female presents via EMS with questionable seizure, but positive head injury after fall. Patient states she does not really remember what happened. Her states that he was in the other room, heard her scream, then heard a thud. When he found her, she was on the floor, but awake. She was mildly combative and did not want to lay down and was trying to get up. He brought a pillow to her, and tried to lay her on the floor, but she began banging her head against the windowsill. There was no loss of bowel or bladder. He states that she was not quite acting herself. Those symptoms resolved, but he states that she was unable to ambulate so he called EMS. Additionally, her mother states that earlier today she looked like she was going to have a seizure. While she does not have tonic-clonic seizures, they state that she has been diagnosed with what sounds like absence seizure's. She takes gabapentin for these and some other med. She presents to the emergency department because she struck her head several times against the wall/windowsill, and she complains of right-sided rib pain as well from her fall. She had a mental status change afterwards, which has resolved. [facility] Medical History Acute blood loss anemia Anxiety Arthritis Branch retinal vein occlusion of both eyes Chronic anemia Diabetes Essential hypertension Glaucoma Hypothyroidism Insomnia Migraine Osteoporosis Peptic ulcer disease Unspecified intestinal obstruction Home Medications levothyroxine 50 mcg tablet 50 mcg PO DAILY thyroid 07/24/13 [History Last Taken 01/12/18 07:00 50 MCG] pantoprazole 40 mg tablet,delayed release 40 mg PO BID stomach 07/24/13 [History Last Taken 08/23/21] zolpidem 10 mg tablet 10 mg PO QHS sleep 07/24/13 [History Last Taken 12/15/15] latanoprost 0.005 % eye drops 1 drp EACH EYE QHS eye health 12/16/15 [History Last Taken 12/15/15] rizatriptan 10 mg disintegrating tablet 10 mg PO DAILY PRN PRN Headache 12/16/15 [History Last Taken Unknown] ascorbic acid (vitamin C) 1,000 mg tablet 4 g PO DAILY supplement 12/30/17 [History Last Taken 08/23/21] cholecalciferol (vitamin D3) 25 mcg (1,000 unit) tablet 1,000 unit PO DAILY supplement 12/30/17 [History Last Taken 08/23/21] ferrous sulfate 325 mg (65 mg iron) tablet (Feosol) 325 mg PO QDAY supplement 12/30/17 [History Last Taken 08/23/21] cyanocobalamin (vitamin B-12) 1,000 mcg/mL injection solution 100 mcg IM QMONTH vitamin 07/26/19 [History Last Taken Unknown] lisinopril 10 mg tablet 10 mg PO DAILY #90 tabs 07/26/19 [Rx Last Taken Unknown] amlodipine 5 mg tablet 5 mg PO DAILY bp 08/23/21 [History Last Taken 08/22/21] cyclobenzaprine 5 mg tablet 10 mg PO TID PRN Spasms 08/23/21 [History Last Taken Unknown] dorzolamide (PF) 2 % (PF) eye drops 1 drp EACH EYE BID eye health 08/23/21 [History Last Taken Unknown] folic acid 1 mg tablet 1 mg PO DAILY supplement 08/23/21 [History Last Taken 08/23/21] gabapentin 300 mg tablet 600 mg PO TID pain 08/23/21 [History Last Taken 08/23/21] hydroxyzine pamoate 25 mg capsule 50 mg PO TID anxiety 08/23/21 [History Last Taken 08/23/21] loratadine 10 mg capsule 10 mg PO DAILY allergies 08/23/21 [History Last Taken 08/23/21] lorazepam 0.5 mg tablet 0.5 mg PO DAILY PRN Anxiety 08/23/21 [History Last Taken 08/22/21] metformin 500 mg tablet 500 mg PO DAILY BS 08/23/21 [History Last Taken 08/23/21] timolol maleate 0.5 % once daily eye drops 1 drp EACH EYE DAILY eye health 08/23/21 [History Last Taken Unknown] topiramate 100 mg tablet 100 mg PO QHS anxiety 08/23/21 [History Last Taken 08/22/21] venlafaxine 75 mg tablet 75 mg PO TID muscle 08/23/21 [History Last Taken 08/23/21] atorvastatin 20 mg tablet 20 mg PO DAILY 04/19/23 [History Last Taken Unknown] denosumab 60 mg/mL subcutaneous syringe (Prolia) 60 mg subcut .EVERY 6 MONTHS 04/19/23 [History Last Taken Unknown] diclofenac epolamine 1.3 % transdermal 12 hour patch 180 mg topical BID 04/19/23 [History Last Taken Unknown] ondansetron 4 mg disintegrating tablet 4 mg PO DAILY 04/19/23 [History Last Taken Unknown] Allergy/AdvReac Type Severity Reaction Status Date / Time No Known Allergies Allergy Verified 04/19/23 22:41 Family History Sister Asthma Diabetes Hypertension High cholesterol Osteoporosis Mother Diabetes High cholesterol Hypertension Osteoporosis Thyroid disorder Skin cancer Brother Diabetes Hypertension High cholesterol Father Heart disease Hypertension CVA (cerebral vascular accident) Surgical History History of esophagogastroduodenoscopy (EGD) (2016) History of gastric bypass History of hysterectomy History of laparoscopic cholecystectomy History of lumpectomy of right breast History of tubal ligation Social History Smoking Status: Never smoker alcohol intake: never substance use type: does not use ROS ROS ED ROS Narrative Constitutional: No fever, no chills. HEENT: No sore throat. No neck pain. No loss of vision. No rhinorrhea. Cardiovascular: Right-sided rib pain/chest pain. No palpitations. No pedal edema. Respiratory: No cough, no shortness of breath. Abdominal: No abdominal pain. No nausea. No vomiting. Genitourinary: No dysuria. No hematuria. Musculoskeletal: No myalgias. No arthralgias. Neurologic: No headaches. No dizziness. No lightheadedness. Questionable seizure versus syncope. Reported mental status change-resolved. Amnestic to event. Skin: No rash. No change in color. Psychiatric: No depression. No anxiety. EXAM Physical Exam Narrative Exam Narrative: Afebrile. Vital signs noted. GCS 15. ABCs intact. HEENT: Normocephalic. Atraumatic. PERRL, EOMI. Neck soft and supple. No point tenderness or step off. Full range of motion without pain. Cardiovascular: Regular rate and rhythm. No murmurs, rubs, or gallops appreciated. Mild tenderness to palpation right posterior ribs, no ecchymosis, no crepitance. Respiratory: No tachypnea. Lungs clear to auscultation bilaterally. Gastrointestinal: Abdomen soft, nontender, with normoactive bowel sounds. No rebound or guarding. Neurological: Awake. Alert. Oriented x3. Currently at baseline according to family. Nonfocal, nonlateralizing. Skin: No rash. Normal color. No pallor. Musculoskeletal: No pedal edema. Full range of motion extremities. Const Vital Signs: 04/19/23 22:32 04/19/23 23:04 04/19/23 23:07 Temperature 96.7 F L 96.7 F L Temperature Source Temporal Pulse Rate 75 Respiratory Rate 16 Respiratory Effort Normal Respiratory Depth Normal Respiratory Pattern Normal Blood Pressure 90/70 116/81 H Blood Pressure Mean 76 92 Pulse Ox 98 98 98 Oxygen Delivery Method Room Air Room Air Room Air MDM MDM MDM Narrative Medical decision making narrative: Upon arrival, although patient is hypotensive at 90/70,. She may have had a syncopal episode from orthostatic hypotension, or just a fall. It does not sound like she had a tonic-clonic seizure. In order to rule out closed head injury with traumatic hemorrhage, CT of the brain will be obtained. I do not feel that she requires a CT of the neck. When her came to the room, she was awake but mildly combative. She is currently calm. For her right-sided rib pain, I will obtain rib series with chest x-ray to help rule out fracture. I will obtain basic laboratory work including CBC, CMP, and a lactic acid. She was bolused normal saline 1 L intravenously. Repeat blood pressure is now normal at 116/81. Ucyko-[id number] glucose was obtained and reviewed and is normal at 74. I reviewed her medication list and she takes topiramate for anxiety. She is on gabapentin. I do not really see a antiepileptic listed. I reviewed her laboratory work and she has a normal white count of 4.4, hemoglobin stable at 10.2, platelet count normal at 283. Electrolyte panel shows normal sodium of 142, potassium normal 3.9, chloride slightly elevated at 116 which I think is nonspecific, BUN of 24 with creatinine 1.19 for slight increase. She may be dehydrated. Glucose is 77 on her BMP. Her [id number]-qa-[id number] glucose was 74. I learned later that EMS upon arrival showed her to have a blood sugar of 57, she was given glucose and it raised up to above 70. She may have had attack of hypoglycemia. She states that she does not have a blood glucose monitor but is prediabetic and takes metformin. Advised her to ensure that she is eating before she takes her metformin, and additionally she should invest in a glucose monitor. Lipase is normal at 67. CT of the brain was obtained and radiology report reviewed which shows no evidence of a skull fracture or intracranial hemorrhage. Additionally I reviewed and interpreted her right rib x-rays with chest x-ray and see no evidence of a fracture or pneumothorax, no evidence of pneumonia. I reviewed the radiology report of her rib x-rays and see no evidence of an acute fracture. This confirms my independent interpretation. Given that her transient mental status has resolved, I do think that it may have been secondary to hypoglycemia and that she had a fall secondary to it. EKG was obtained and interpreted by myself independently as normal sinus rhythm at 70 bpm without ectopy or acute ST changes. Her lactic acid is normal at 1.0. Her blood pressure has normalized. She may have also had orthostatic hypotension. At this point in time however, I do not feel that she requires observation. I feel she be discharged safely home with follow-up. Return instructions to the emergency department were reviewed. Disposition is discharged home in stable condition. History & Record Review Discussion w/independent historian: Patient and Family Additional record(s) reviewed:: Prior ED visit and Prior labs Lab Data Attestation: I reviewed the patient's lab results. Labs: Laboratory Results - last 24 hr 04/19/23 04/19/23 22:40 22:43 WBC 4.4 RBC 3.43 L Hgb 10.2 L Hct 33.6 L MCV 98.0 MCH 29.7 MCHC 30.4 L RDW Std Deviation 52.5 H RDW Coeff of Lobo 14.6 Plt Count 283 MPV 10.0 Immature Gran % (Auto) 0.500 Neut % (Auto) 44.9 L Lymph % (Auto) 33.7 Dewey % (Auto) 10.9 H Eos % (Auto) 9.1 H Baso % (Auto) 0.9 Absolute Neuts (auto) 2.0 Absolute Lymphs (auto) 1.48 Nucleated RBC % 0 Sodium 142 Potassium 3.9 Chloride 116 H Carbon Dioxide 24.0 Anion Gap 2 L BUN 24 H Creatinine 1.19 H Estim Creat Clear Calc 41.78 Est GFR (MDRD) Af Amer 59 L Est GFR (MDRD) Non-Af 49 L BUN/Creatinine Ratio 20.2 H Glucose 77 Lactic Acid 1.0 Calcium 8.3 L Total Bilirubin 0.20 AST 33 ALT 43 Alkaline Phosphatase 103 Total Protein 6.1 L Albumin 3.4 Globulin 2.7 Albumin/Globulin Ratio 1.3 Lipase 67 POC Glucose 74 Radiography Diagnostic Testing: Clinical Impression(s) from Imaging Studies Brain CT 04/19/23 22:51 IMPRESSION: Normal unenhanced CT scan of the brain. Electronically Signed: Sarah Mancini MD at 23:26 EDT Reading Location ID and State: [place] MD Tel , Service support , Ribs w/Chest X-Ray 04/19/23 22:51 IMPRESSION: No evidence of displaced rib fracture. Electronically Signed: Sarah Mancini MD at 23:35 EDT Reading Location ID and State: [place] / Tel , Service support , Discharge Plan Triage Chief Complaint: Fall ED Provider: Ramon Alvarado Dx/Rx/DC Orders Prescriptions: No Action ferrous sulfate [Feosol] 325 mg (65 mg iron) tablet 325 mg PO QDAY cyanocobalamin (vitamin B-12) 1,000 mcg/mL solution 100 mcg IM QMONTH lisinopril 10 mg tablet 10 mg PO DAILY Qty: 90 5RF levothyroxine 50 MCG tablet 50 mcg PO DAILY Patient Comments: THYROID pantoprazole 40 MG tablet 40 mg PO BID Patient Comments: ACID REFLUX zolpidem 10 MG tablet 10 mg PO QHS Patient Comments: SLEEP latanoprost 1 DROP bottle 1 drp EACH EYE QHS Patient Comments: EYE DROPS rizatriptan 10 MG tablet,disintegrating 10 mg PO DAILY PRN PRN (Reason: Headache) Patient Comments: HEADACHE ascorbic acid (vitamin C) 1,000 mg tablet 4 g PO DAILY Patient Comments: SUPPLEMENT cholecalciferol (vitamin D3) 1,000 unit tablet 1,000 unit PO DAILY Patient Comments: SUPPLEMENT metformin 500 mg Tablet 500 mg PO DAILY venlafaxine 75 mg Tablet 75 mg PO TID amlodipine 5 mg tablet 5 mg PO DAILY Patient Comments: Take 1 tablet by mouth once daily. lorazepam 0.5 mg Tablet 0.5 mg PO DAILY PRN (Reason: Anxiety) folic acid 1 mg Tablet 1 mg PO DAILY topiramate 100 mg Tablet 100 mg PO QHS cyclobenzaprine 5 mg Tablet 10 mg PO TID PRN (Reason: Spasms) gabapentin 300 mg Tablet 600 mg PO TID timolol maleate 0.5 % Drops, Once Daily 1 drp EACH EYE DAILY loratadine 10 mg Capsule 10 mg PO DAILY dorzolamide (PF) 2 % Drops 1 drp EACH EYE BID hydroxyzine pamoate 25 mg capsule 50 mg PO TID Patient Comments: Take 1 capsule by mouth three times daily as needed for anxiety. ondansetron 4 mg tablet,disintegrating 4 mg PO DAILY atorvastatin 20 mg tablet 20 mg PO DAILY Patient Comments: Take 1 tablet by mouth daily at bedtime. For cholesterol. diclofenac epolamine 1.3 % patch 12 hour 180 mg topical BID Prolia 60 mg/mL syringe 60 mg subcut .EVERY 6 MONTHS Primary Care Provider: Angelo Ruggiero Referrals: Angelo Ruggiero MD [Primary Care Provider] -
[2023-04-19 23:06] LABS: Absolute Lymphocyte Count 1.48 X10^3/uL (0.83-4.51); Basophil# 0.04 X10^3/uL; Basophil% 0.9 % (0-1); Eosinophils% 9.1 % (0-5); Hematocrit 33.6 % (37-47); Hemoglobin 10.2 g/dL (12.0-15.0); Lymphocyte # 1.48 X10^3/ul (0.83-4.51); Lymphocyte % 33.7 % (19-41); Mean Corp Hgb Conc 30.4 g/dL (32-36); Mean Corpuscular Hgb 29.7 pg (27.0-32.0); Monocyte# 0.48 X10^3/uL; Monocyte% 10.9 % (0-10); NRBC Flagged by Analyzer 0 % (0-5); Neutrophil # 1.97 X10^3/uL (2.7-7.7); Neutrophil % 44.9 % (47-70); Platelet Count 283 K/mm3 (150-450); RBC Distribution Width CV 14.6 % (11.6-14.6); RBC Distribution Width SD 52.5 fl (35.1-43.9); Red Blood Count 3.43 M/mm3 (4.2-5.4); White Blood Count 4.4 K/mm3 (4.4-11.0)
[2023-04-19 23:07] VITALS: TEMP 35.9; O2SAT 98
[2023-04-19 23:37] LABS: ALB/GLOB Ratio 1.3 RATIO (0.9-2.4); AST(SGOT) 33 U/L (15-37); Alanine Aminotransfer ALT/SGPT 43 U/L (13-56); Albumin, Serum 3.4 g/dL (3.2-5.0); Alkaline Phosphatase 103 U/L (45-117); Anion Gap 2 (5-15); BUN 24 mg/dL (7-18); BUN/Creat Ratio 20.2 RATIO (10-20); Calcium,Total 8.3 mg/dL (8.5-10.1); Chloride 116 mmol/L (98-107); Creatinine, Serum 1.19 mg/dL (0.55-1.02); EST Glomerular Filtration Rate 49 mL/min (>60); Est Glom Filt Rate - Afr Amer 59 mL/min (>60); Estimated Creatinine Clearance 41.78 ml/min; Globulin 2.7 g/dL (2.2-4.2); Glucose 77 mg/dL (74-106); Lipase 67 U/L (13-75); Potassium 3.9 mmol/L (3.5-5.1); Protein, Total 6.1 g/dL (6.4-8.2); Sodium Level 142 mmol/L (136-145)
[2023-04-20 00:24] VITALS: PULSE 77; RESP 18; O2SAT 99
== END 2023-04-20 00:24 | disposition home or self-care (01) ==
PROVIDERS: Emergency Provider Emergency Medicine; PCP Family Medicine; Visit Provider Emergency Medicine
DX: S09.90XA Unspecified injury of head, initial encounter (principal); E11.9 Type 2 diabetes mellitus without complications; I10 Essential (primary) hypertension; F41.9 Anxiety disorder, unspecified; E03.9 Hypothyroidism, unspecified; Z79.899 Other long term (current) drug therapy; W19.XXXA Unspecified fall, initial encounter; Z79.84 Long term (current) use of oral hypoglycemic drugs
CPT/HCPCS: 70450; 71101; 80053; 82962; 83605; 83690; 85025; 93005; 96360; 99285; J7030; A4216

== ENCOUNTER 2024-12-25 17:00 | Inpatient (IN) | payer MEDICARE, OTHER, SELFPAY ==
[2024-12-25 17:32] VITALS: BP 101/65; PULSE 86; RESP 15; TEMP 35.8; O2SAT 96; BMI 26.9
[2024-12-25 17:43] VITALS: BP 101/65; PULSE 86; RESP 15; TEMP 35.8; O2SAT 96
[2024-12-25 18:16] LABS: Bedside Glucose 103 mg/dL (74-106)
[2024-12-25 22:00] VITALS: O2SAT 94
[2024-12-25 22:02] LABS: Bedside Glucose 95 mg/dL (74-106)
[2024-12-25] MEDS: Gabapentin 600 MG Tablet PO (22:13)
[2024-12-25] MEDS: Senna/Docusate Sodium 1 Tablet 2 TABLET PO (22:13)
[2024-12-25] MEDS: Atorvastatin Calcium 20 MG Tablet PO (22:13)
[2024-12-25] MEDS: Topiramate 100 MG Tablet 300 MG PO (22:14)
[2024-12-25] MEDS: Doxycycline 100 MG CAPSULE PO (22:14)
[2024-12-25] MEDS: Pantoprazole Sodium 40 MG Tablet PO (22:14)
[2024-12-25] MEDS: Dorzolamide 2% 10ml Bottle 1 DRP EACH EYE (22:14)
[2024-12-25] MEDS: Latanoprost 0.005% 1 Bottle 1 DRP EACH EYE (22:15)
[2024-12-25] MEDS: cycloBENZAPRine HCl 5 MG TABLET PO (22:19)
[2024-12-25] MEDS: oxyCODONE 5 MG Tablet PO (22:20)
[2024-12-25 23:07] LABS: Bacteria 0 SEEN /hpf (None Seen); Mucous, Urine 0 SEEN /hpf (<or=2+); Red Blood Cells-Urine 0 SEEN /hpf (0-5); Squamous Epithelial Cells - UA 0 SEEN /hpf (5-10); White Blood Cells 0 SEEN /hpf (0-5)
[2024-12-25 23:12] LABS: Color, Urine Yellow (Yellow); Glucose, Dipstick Normal (Normal); Ketone-Dipstick Negative (Negative); Leukocyte Esterase-Dipstick Negative /ul (Negative); Nitrite-Dipstick Negative (Negative); Occult Blood-Urine Negative /ul (Negative); Protein-Dipstick 30 mg/dl (Negative); Urine Bilirubin Dipstick Negative (Negative); Urine Clarity Clear (Clear); Urine Urobilinogen Normal (Normal)
[2024-12-26 02:10] VITALS: BP 112/64; PULSE 66; RESP 15; TEMP 36.8; O2SAT 95
--- NOTE | 2024-12-26 02:12 | NURSING ---
PVR #1- BS 355cc and str/cathed 400cc. Staff assisted pt to bsc but pt failed to urinate. PVR #1 completed and str/cathed tolerated well by pt.
[2024-12-26] MEDS: Levothyroxine 50 MCG Tablet PO (05:41)
[2024-12-26] MEDS: Gabapentin 600 MG Tablet PO ×3 (05:41→21:52)
[2024-12-26 05:46] LABS: Hematocrit 27.5 % (37-47); Hemoglobin 8.6 g/dL (12.0-15.0); Mean Corp Hgb Conc 31.3 g/dL (32-36); Mean Corpuscular Hgb 30.5 pg (27.0-32.0); Mean Corpuscular Volume 97.5 fL (81-99); Mean Platelet Vol. 9.4 fl (6.2-12.0); Platelet Count 231 K/mm3 (150-450); RBC Distribution Width CV 15.9 % (11.6-14.6); RBC Distribution Width SD 57.1 fl (35.1-43.9); Red Blood Count 2.82 M/mm3 (4.2-5.4); White Blood Count 5.7 K/mm3 (4.4-11.0)
[2024-12-26 06:00] VITALS: BP 127/84; PULSE 98; RESP 16; TEMP 36.7; O2SAT 93
[2024-12-26 06:31] LABS: ALB/GLOB Ratio 1.2 RATIO (0.9-2.4); AST(SGOT) 28 U/L (<=31); Alanine Aminotransfer ALT/SGPT 22 U/L (<=34); Alkaline Phosphatase 160 U/L (35-104); Anion Gap 9 (5-15); BUN 16 mg/dL (4-19); BUN/Creat Ratio 20.3 RATIO (10-20); Calcium,Total 8.7 mg/dL (7.6-11.0); Carbon Dioxide 20.4 mmol/L (21.0-32.0); Chloride 113 mmol/L (98-108); Creatinine, Serum 0.79 mg/dL (0.70-1.20); EST Glomerular Filtration Rate 84 (>60); Estimated Creatinine Clearance 64.49 ml/min (50-250); Globulin 2.4 g/dL (2.2-4.2); Glucose 91 mg/dL (70-99); Phosphorus 2.8 mg/dL (2.7-4.5); Potassium 3.8 mmol/L (3.3-5.1); Protein, Total 5.4 g/dL (5.9-8.4); Sodium Level 142 mmol/L (133-145); Total Bilirubin 0.27 mg/dL (0.00-1.30)
[2024-12-26 06:51] VITALS: O2SAT 96
[2024-12-26 07:23] LABS: Bedside Glucose 74 mg/dL (74-106)
[2024-12-26] MEDS: Aspirin E.C. 81 MG Tablet PO ×2 (08:01→17:02)
[2024-12-26] MEDS: Doxycycline 100 MG CAPSULE PO ×2 (08:01→21:52)
[2024-12-26] MEDS: Folic Acid 1 MG Tablet PO (08:01)
[2024-12-26] MEDS: Topiramate 100 MG Tablet PO (08:01)
[2024-12-26] MEDS: Ensure Plus High Protein 120 ML LIQUID PO (08:01)
[2024-12-26] MEDS: metFORMIN HCl 500 MG Tablet PO (08:01)
[2024-12-26] MEDS: Polyethylene Glycol 3350 17 GM PACKET PO (08:01)
[2024-12-26] MEDS: Venlafaxine HCl 75 MG Tablet 112.5 MG PO ×2 (08:01→12:02)
[2024-12-26] MEDS: Pantoprazole Sodium 40 MG Tablet PO ×2 (08:01→21:51)
[2024-12-26] MEDS: Magnesium Hydroxide 30 ML UDC PO (08:02)
[2024-12-26] MEDS: Dorzolamide 2% 10ml Bottle 1 DRP EACH EYE ×2 (08:02→22:36)
[2024-12-26] MEDS: oxyCODONE 5 MG Tablet PO ×2 (08:03→15:45)
[2024-12-26] MEDS: Senna/Docusate Sodium 1 Tablet 2 TABLET PO ×2 (08:04→21:51)
[2024-12-26 08:10] VITALS: BP 100/63; PULSE 106; RESP 16; TEMP 36.4; O2SAT 98
--- NOTE | 2024-12-26 11:09 | RAD_ITS ---
PROCEDURE: ABDOMEN SINGLE VIEW (PORTABLE) 12/26/2024 REASON FOR EXAM: CONSTIPATION TECHNIQUE: Two views of the abdomen COMPARISON: None FINDINGS: There is a nonobstructive bowel gas pattern with gas and stool noted throughout the colon with an increased stool load, consistent with constipation. Surgical clips are noted in the left upper abdomen. There is no visible acute bony abnormality or pathologic calcification. RAD/Abdomen Single View (Portable) IMPRESSION: Increased stool volume consistent with constipation. Reading Location: [facility]
[2024-12-26] MEDS: Ferrous Sulfate 325 MG Tablet PO ×2 (12:02→17:03)
[2024-12-26] MEDS: Multivitamins,Therapeutic Tablet 1 TABLET PO (12:02)
[2024-12-26] MEDS: Ascorbic Acid 500 MG Tablet PO ×2 (12:03→17:03)
[2024-12-26 12:21] LABS: Bedside Glucose 102 mg/dL (74-106)
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
[2024-12-26] MEDS: Magnesium Citrate 300 ML PO (14:41)
[2024-12-26 16:36] LABS: Bedside Glucose 113 mg/dL (74-106)
--- NOTE | 2024-12-26 16:37 | REHABEVAL_ITS ---
Admission Information Primary Diagnosis:: Debility secondary to right total knee replaced Status Changes from Prescreening?: No changes Identified Actual Problem List:: Skin Intergrity, Pain, ALteration in Cmfrt, Cognitve Impr/Memory Loss, Depression, Bowel, Constipation, Alteration in Sleep, Mobility Impaired, Self Care Deficit, Fluid Change-Dehydration and Alteration-Leisure Activ. Potential Problem List:: DVT, Bleeding, Infection, UTI, Aspiration, Falls, Skin Integrity and Depression Risk of Complications DVT: HEMAL Hose, Sequential Compression Device and - (Aspirin 81 mg twice daily per orthopedic surgery) Bleeding: Monitor Lab Values, Nursing to Teach Precautions for anti-coagulation therapy., Wound, if applicable, to be assessed every shift. and Stroke patients assessed for lethargy or change in status. Infection: Clinical Staff to Monitor for S/S of infection: and S/S of infection include fever, redness, warmth, etc. Urinary Tract Infection: Monitor for frequency, burning, discomfort, or incontinence. and Nursing will obtain urine sample for urinalysis and C&S when ordered. Aspiration: Clinical staff will monitor for coughing, drooling, congestion., Speech will evaluate swallowing and dsyphasia. and Nursing will monitor patient swallowing during meals. Falls: Patient will be evaluated for Fall Precautions and Patient will be placed on Fall Precautions as indicated per protocol. Skin Breakdown: Nursing will assess skin daily using assessment tool. and Nursi ng will place on Skin Breakdown Precautions as indicated. Pain: Clinical staff will assess patient's pain level per protocol., Medications will be given, if needed, and the pain level reassessed. and Other methods: Massage, distraction, decrease stimulus, etc. used PRN. Plan of Care Patient requires physician specializing in physical medicine and rehab oversight to provide close medical supervision of rehab issues including: Pain Management, Sleep Problems, Bowel and Bladder, Medical and co-morbidity Management, DVT prop hylaxis, Rehabilitation Leadership and Coordination of treatment team Patient needs Physical Therapy: For a minimum of 1 hour and At least 5 out of 7 days Patient needs Physical Therapy to improve:: Mobility, Strengthening, Transfers, Stretching, ROM, Endurance, Stairs, Gait and Balance Patient needs Occupational Therapy: For a minimum of 1 hour and At least 5 out of 7 days Patient needs Occupational Therapy to improve ADL's incl.: Eating, Grooming, Bathing, Dressing, Toileting, Toilet transfers, Community Reintegration, Higher functioning activities, Household tasks, Adaptive Equipment, Splinting and Other activities as determined Patient requires speech therapy: For a minimum of 1 hour and At least 5 out of 7 days Patient requires speech therapy for: Swallowing, Cognition, Language Skills and Compensatory Strategies Patient requires 24/ Rehabilitation Nursing for: Pain Issues, Identifying and preventing risk factors, Monitoring and reporting current medical conditions, Assisting with ambulation, transfer, and all ADL's, Teaching patients about disease process and medications, Family teaching, Providing safe environment, Bowel and Bladder Issues, Skin integrity and Medication Management Patient needs Supervisor Aircraft Cleaning/ Case Management for: Discharge Planning, Arranging Home Equipment or Services and Family Interventions Patient needs Dietary and Nutrition Services for: Adequate Nutrition, Nutritional Supplements and Nutritional Education Goals Goals Patient will remain: free from falls Patient will perform eating at: MOD I level of assist. Patient will perform bed mobility at: MOD I level of assist. Patient will complete transfers from bed to chair at: MOD I level of assist. Patient will ambulate: - (50 feet with a wheeled walker at standby assist on various surfaces) Patient will complete upper body dressing at: - (Set up) Patient will complete lower body dressing at: - (Supervision with adaptive equipment as needed) Patient will complete toilet transfer at: - (Supervision) Patient will complete toileting at: - (Supervision) Patient will perform bathing at: - (She will complete upper body bathing independently and lower body bathing at supervision with adaptive equipment as needed) Patient will perform Tub/Shower transfer at: - (Supervision) Patient will complete grooming at: - (Set up level while seated at the sink) Patient will achieve: - (4 steps with 1 handrail and least restrictive device at contact-guard assist) Patient will have pain level of: of 3 or less Patient's skin will: remain intact Patient will receive: adequate nutrition. Discharge Planning Pt Prognosis for Sig. Practical Improv. w/in Reasonable Time: Good Estimated Length of stay (days): 21 Anticipated D/C Destination: Home with Outpt Therapy
[2024-12-26] MEDS: Venlafaxine HCl 75 MG Tablet PO (17:02)
[2024-12-26] MEDS: Juven (unflavored) Packet 1 PACKET PO (17:03)
[2024-12-26] MEDS: Saliva Substitute 237 ML BOTTLE 15 ML MUCOUS MEM ×2 (17:03→21:53)
[2024-12-26 17:09] LABS: Hemoglobin A1c 5.8 % (<=5.6)
[2024-12-26 17:53] LABS: Ferritin 638 ng/mL (22-378); Vitamin B12 1318 pg/mL (180-914)
[2024-12-26 18:00] VITALS: BP 116/75; PULSE 102; RESP 16; TEMP 37.2; O2SAT 98
[2024-12-26 18:23] LABS: Iron 17 ug/dL (50-170); Iron Binding Capacity,Unsat 133 ug/dL (228-428)
[2024-12-26 18:48] LABS: Iron Binding Capacity,Total 150 ug/dL (250-450)
[2024-12-26] MEDS: Bisacodyl 5 MG Tablet 10 MG PO (19:36)
[2024-12-26] MEDS: oxyCODONE 5 MG Tablet 10 MG PO (21:51)
[2024-12-26 21:52] LABS: Bedside Glucose 84 mg/dL (74-106)
[2024-12-26] MEDS: Topiramate 100 MG Tablet 300 MG PO (21:52)
[2024-12-26] MEDS: Atorvastatin Calcium 20 MG Tablet PO (21:52)
[2024-12-26] MEDS: Zolpidem Tartrate 5 MG Tablet PO (21:52)
[2024-12-26 22:00] VITALS: PULSE 98; RESP 16; O2SAT 94
[2024-12-26] MEDS: Latanoprost 0.005% 1 Bottle 1 DRP EACH EYE (22:37)
[2024-12-27 06:00] VITALS: BP 130/88; PULSE 99; RESP 16; TEMP 36.4; O2SAT 97
[2024-12-27] MEDS: Levothyroxine 50 MCG Tablet PO (06:11)
[2024-12-27] MEDS: oxyCODONE 5 MG Tablet 10 MG PO ×2 (06:11→21:22)
[2024-12-27] MEDS: Gabapentin 600 MG Tablet PO ×3 (06:11→21:22)
[2024-12-27] MEDS: Saliva Substitute 237 ML BOTTLE 15 ML MUCOUS MEM ×5 (06:11→21:23)
[2024-12-27 07:26] LABS: Bedside Glucose 70 mg/dL (74-106)
[2024-12-27 07:26] LABS: Bedside Glucose 144 mg/dL (74-106)
[2024-12-27] MEDS: Senna/Docusate Sodium 1 Tablet 2 TABLET PO ×2 (08:12→21:21)
[2024-12-27] MEDS: Venlafaxine HCl 75 MG Tablet 112.5 MG PO ×2 (08:13→11:56)
[2024-12-27] MEDS: Aspirin E.C. 81 MG Tablet PO ×2 (08:14→16:21)
[2024-12-27] MEDS: metFORMIN HCl 500 MG Tablet PO (08:14)
[2024-12-27] MEDS: Folic Acid 1 MG Tablet PO (08:15)
[2024-12-27] MEDS: Juven (unflavored) Packet 1 PACKET PO ×2 (08:15→16:20)
[2024-12-27] MEDS: Pantoprazole Sodium 40 MG Tablet PO ×2 (08:15→21:22)
[2024-12-27] MEDS: Doxycycline 100 MG CAPSULE PO ×2 (08:15→21:22)
[2024-12-27] MEDS: Polyethylene Glycol 3350 17 GM PACKET PO (08:15)
[2024-12-27] MEDS: Topiramate 100 MG Tablet PO (08:16)
[2024-12-27] MEDS: Dorzolamide 2% 10ml Bottle 1 DRP EACH EYE ×2 (08:17→21:24)
[2024-12-27 10:35] VITALS: O2SAT 97
[2024-12-27] MEDS: Bisacodyl 10 MG Suppository RC (11:52)
[2024-12-27] MEDS: Multivitamins,Therapeutic Tablet 1 TABLET PO (11:56)
[2024-12-27] MEDS: Ascorbic Acid 500 MG Tablet PO ×2 (11:56→16:21)
[2024-12-27 12:20] LABS: Bedside Glucose 82 mg/dL (74-106)
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
[2024-12-27] MEDS: Venlafaxine HCl 75 MG Tablet PO (16:20)
[2024-12-27 17:07] LABS: Bedside Glucose 87 mg/dL (74-106)
[2024-12-27 17:34] VITALS: BP 123/70; PULSE 102; RESP 16; TEMP 36.6; O2SAT 99
[2024-12-27] MEDS: Topiramate 100 MG Tablet 300 MG PO (21:21)
[2024-12-27] MEDS: Zolpidem Tartrate 5 MG Tablet PO (21:22)
[2024-12-27] MEDS: Atorvastatin Calcium 20 MG Tablet PO (21:22)
[2024-12-27] MEDS: Latanoprost 0.005% 1 Bottle 1 DRP EACH EYE (21:23)
[2024-12-27] MEDS: cycloBENZAPRine HCl 5 MG TABLET PO (21:31)
[2024-12-27 22:21] LABS: Bedside Glucose 98 mg/dL (74-106)
[2024-12-28] MEDS: Levothyroxine 50 MCG Tablet PO (05:42)
[2024-12-28] MEDS: Saliva Substitute 237 ML BOTTLE 15 ML MUCOUS MEM ×5 (05:42→20:53)
[2024-12-28] MEDS: Gabapentin 600 MG Tablet PO ×3 (05:42→21:13)
[2024-12-28 06:00] VITALS: BP 145/89; PULSE 89; RESP 16; TEMP 36.7; O2SAT 94
[2024-12-28] MEDS: oxyCODONE 5 MG Tablet 10 MG PO (06:34)
[2024-12-28 07:15] LABS: Bedside Glucose 82 mg/dL (74-106)
[2024-12-28] MEDS: Venlafaxine HCl 75 MG Tablet 112.5 MG PO ×2 (07:40→12:54)
[2024-12-28] MEDS: Polyethylene Glycol 3350 17 GM PACKET PO ×2 (07:40→20:53)
[2024-12-28] MEDS: Juven (unflavored) Packet 1 PACKET PO ×2 (07:40→16:50)
[2024-12-28] MEDS: Aspirin E.C. 81 MG Tablet PO ×2 (07:40→16:51)
[2024-12-28] MEDS: metFORMIN HCl 500 MG Tablet PO (07:41)
[2024-12-28] MEDS: Doxycycline 100 MG CAPSULE PO ×2 (07:41→20:53)
[2024-12-28] MEDS: Folic Acid 1 MG Tablet PO (07:41)
[2024-12-28] MEDS: Pantoprazole Sodium 40 MG Tablet PO ×2 (07:42→20:54)
[2024-12-28] MEDS: Topiramate 100 MG Tablet PO (07:42)
[2024-12-28] MEDS: Senna/Docusate Sodium 1 Tablet 2 TABLET PO ×2 (07:42→20:53)
[2024-12-28] MEDS: Dorzolamide 2% 10ml Bottle 1 DRP EACH EYE ×2 (07:49→20:53)
[2024-12-28] MEDS: Multivitamins,Therapeutic Tablet 1 TABLET PO (10:59)
[2024-12-28] MEDS: Magnesium Citrate 300 ML PO (10:59)
[2024-12-28] MEDS: Ascorbic Acid 500 MG Tablet PO ×2 (11:00→16:50)
[2024-12-28] MEDS: oxyCODONE 5 MG Tablet PO ×2 (11:05→22:14)
[2024-12-28 11:27] LABS: Bedside Glucose 91 mg/dL (74-106)
--- NOTE | 2024-12-28 11:32 | PCM.PROGNOTE ---
Subjective Subjective Angelia was seen on team rounds today. Her Nathan was present in the room for rounds. He questions why she is getting ST and the therapist explained about the findings of the cognitive testing and slurred speech. Afebrile VSS - Maintaining appropriate oxygen saturation on RA Oral intake - FOOD highly variable. Has been ranging from 25 to 49% to 75 to 100% since admission to rehab. FLUIDS good The blood sugar record was reviewed. Not requiring any insulin. Discussed with nursing - despite stool softeners and laxatives he has had only 1 small smear of stool Reviewed the THERAPY notes - Has 4 steps with 1 HR to enter her house. Her plans on getting the neighbor to help him carry her in and out of the house. This does not sound like a safe plan. PT mentioned getting a ramp, at least temporarily and he was resistant to this idea. Medication list reviewed. Has not taken any Ativan since admission to rehab. Has been getting Ambien 5 mg at HS. Only 1 dose of PRN Oxy 5 mg. Pain is well controlled on scheduled Oxy 10 mg BID. Has had only 2 PRN doses of Flexeril. tells me that when she is going to have a seizure or she is having a seizure he gives her PO Ativan? We have a note from [facility] neurology/epilepsy clinic that talks about video the took of her seizure and the comment was made that he did not look like epileptic seizures. Has had a dx of PNES (psychogenic nonepileptic seizures). Speech is more slurred today and she is drowsy and somewhat confused.......suspect due to narcotics. she had 10 mg of Oxycodone scheduled this AM and then got 5 mg PRN. tells me that she was the same way at [facility] when given narcotics for pain control. Objective Data Objective Data Vital Signs: Vital Signs Temp Pulse Resp BP Pulse Ox O2 Del Method FiO2 98.0 F 89 16 145/89 H 94 Room Air 96 12/28/24 06:00 12/28/24 06:00 12/28/24 06:00 12/28/24 06:00 12/28/24 06:00 12/28/24 06:00 12/27/24 22:00 Oxygen Delivery Method Room Air Weight: 147 lb 4.301 oz Body Mass Index (BMI) 26.9 Intake & Output: Intake and Output for Last 24 Hours 05/13/25 05/14/25 05/15/25 23:59 23:59 23:59 Intake Total 1500 / 1500 1620 / 1620 Output Total 1270 / 1270 1025 / 1875 1700 / 1700 Balance 230 / 230 595 / -255 -1700 / -1700 Lab / Micro Data 12/29/24 05:26 12/26/24 05:32 Labs: Laboratory Results - last 24 hr 12/27/24 11:59: POC Glucose 82 12/27/24 16:48: POC Glucose 87 12/27/24 21:21: POC Glucose 98 12/28/24 06:38: POC Glucose 82 12/28/24 11:08: POC Glucose 91 Micro: Microbiology 12/25/24 22:50 Urine, Catheterized Urine Culture - Final Culture exhibits no growth. Physical Exam Const Constitutional Narrative: very drowsy, speech is very difficult to understand, not finishing her sentences and her thoughts. HEENT HEENT Narrative: no thrush Mouth: dry mucous membranes Resp clear to auscultation bilaterally Effort and Inspection: Negative for tachypneic or labored Cardio regular rate, regular rhythm and no gallops Cardio Narrative: no ectopy GI GI Narrative: no guarding with palpation, Not tympanic. Mildly distended, normal BS's. No masses appreciated. Extremity no calf tenderness Extremity Narrative: trace edma of the Left ankle. HEMAL hose are in place Skin Rashes: no rashes Assessment & Plan Assessment/Plan (1) Physical debility: (2) History of total right knee replacement: (3) Acute blood loss anemia: (4) Urine retention: (5) Obstipation: (6) Traumatic brain injury: QUALIFIERS: Encounter type: subsequent encounter Loss of consciousness presence/duration: unknown LOC status Qualified Code(s): S06.9XAD - Unspecified intracranial injury with loss of consciousness status unknown, subsequent encounter (7) Aphasia: (8) Dysarthria: (9) Vision loss, bilateral: (10) Anxiety: (11) Insomnia: QUALIFIERS: Insomnia type: unspecified Qualified Code(s): G47.00 - Insomnia, unspecified (12) Depression: QUALIFIERS: Depression Type: unspecified Qualified Code(s): F32.A - Depression, unspecified (13) Essential hypertension: (14) Diabetes mellitus, type 2: QUALIFIERS: Diabetes mellitus keno terminal operator insulin use: without keno terminal operator use (15) Glaucoma: QUALIFIERS: Glaucoma type: primary angle-closure Laterality: bilateral Glaucoma stage: stage unspecified (16) Hypothyroidism: QUALIFIERS: Hypothyroidism type: unspecified Qualified Code(s): E03.9 - Hypothyroidism, unspecified (17) Osteoporosis: QUALIFIERS: Osteoporosis type: unspecified Presence of current pathological fracture: unspecified Qualified Code(s): M81.0 - Age-related osteoporosis without current pathological fracture (18) Migraine: QUALIFIERS: Migraine type: unspecified Status migrainosus presence: without status migrainosus Intractability: intractable Qualified Code(s): G43.919 - Migraine, unspecified, intractable, without status migrainosus (19) Seizure disorder: PLAN: Diagnosed with PNES at [facility] and was referred to CBT/psychology but, she did not feel this was helpful at all and quit therapy and requested another provider but, tell me [facility] denied this. (20) B12 deficiency: (21) Vitamin D deficiency: (22) Pure hypercholesterolemia: (23) GERD (gastroesophageal reflux disease): QUALIFIERS: Esophagitis presence: without esophagitis Qualified Code(s): K21.9 - Gastro-esophageal reflux disease without esophagitis PLAN: Plan 1. Continue therapy 2. No changes to the drug regimen. Change the Oxycodone to 5 mg Q 6H PRN. 3. Recheck an HH in the AM. 4. Mag Citrate 300 cc today.......she must finish the bottle in 30 minutes or less and not sip it over 6 hours like she did at admission. If she is unable to do the Mag Citrate in 30m minutes or less will insert an NG and start Golytely. Neither the patient or her can remember when she had a colonoscopy but, her tells me there was no abnormality. She is on many medications that cause constipation. Increase the Miralax to BID. Continue to hold the iron supplement. 5. Discontinue Accu-Cheks and discontinue lispro sliding scale. She has a very complex medical history and follows with [facility]. We will do therapy for the recent knee replacement and continue the meds she listed as home medications but, will not address long standing medical issues and will refer her/ back to [facility]. We got notes from [facility] neurology/epilepsy service and it seems that she has not followed up there since Sep 2023. She has a psychiatrist she follows up with. Gets monthly RX's for Lunesta # 30 tabs and Lorazepam 0.5 mg #[address] Eulalia Graf and she gets Rx's for Gabapentin 600 mg #90 monthly from Sue Brumfield NP in [place]. I requested her bring in all the medications she takes at home, including OTC. He seemed resistant to this. Charges/Coding Visit Charges Inpatient E&M: 16619 Subs Hosp L2
--- NOTE | 2024-12-28 13:07 | CASEMGMT ---
Social Work IDT met with patient and for Team meeting. Discussed patient's progress in PT/OT/ST/SN. Educated to Medicare approval of 14 days with DC 01/08. Offered to schedule therapy training with to ensure he can provide care for pt at home. Pt currently has knee immobilizer, is TTWB and a wound vac. Pt requires 24/7 care and has high distractibility. agreed to therapy training. expressed uncertainty with the focus on ST. also reported he and a friend would carry pt up/down the steps about 5 years when she was NWB and that method worked well. PT inquired about ability to add 2 handrails or a ramp at home. expressed not sure the need for a ramp. do you not like the method of carrying up her the steps?. PT did not refute, but offered that was 5 years ago and circumstances may have changed, and a ramp is safer. SW provided with ramp and handrail resources, if he elects. asked several questions to Dr on medications, constipation, seizures, word finding and fatigue. turns to pt to ask questions, specifically about medications and past physicians. Dr answered all questions. LATRICIA noted we will ReTeam next week, but the DC date is quickly after that meeting, and this worker will speak with after therapy training to coordinate DC planning. Maricruz Penaloza MSW [employer] COMPRESSOR ENGINEER
[2024-12-28] MEDS: Venlafaxine HCl 75 MG Tablet PO (16:50)
[2024-12-28 17:53] VITALS: BP 108/67; PULSE 80; RESP 15; TEMP 37.1; O2SAT 93
[2024-12-28] MEDS: Bisacodyl 10 MG Suppository RC (18:06)
[2024-12-28] MEDS: Latanoprost 0.005% 1 Bottle 1 DRP EACH EYE (20:52)
[2024-12-28] MEDS: Topiramate 100 MG Tablet 300 MG PO (20:53)
[2024-12-28] MEDS: Atorvastatin Calcium 20 MG Tablet PO (20:53)
[2024-12-29] MEDS: Levothyroxine 50 MCG Tablet PO (05:38)
[2024-12-29] MEDS: Gabapentin 600 MG Tablet PO ×3 (05:38→20:10)
[2024-12-29] MEDS: Saliva Substitute 237 ML BOTTLE 15 ML MUCOUS MEM ×5 (05:38→20:10)
[2024-12-29 05:54] LABS: Hemoglobin 7.9 g/dL (12.0-15.0)
[2024-12-29 06:00] VITALS: BP 114/76; PULSE 89; RESP 17; TEMP 36.6; O2SAT 94; BMI 28.5
[2024-12-29] MEDS: Acetaminophen 500 MG Tablet 1000 MG PO (06:03)
[2024-12-29 07:40] VITALS: O2SAT 93
[2024-12-29] MEDS: Multivitamins,Therapeutic Tablet 1 TABLET PO (08:03)
[2024-12-29] MEDS: Ergocalciferol 1.25 MG (50, 000 UNIT) Capsule PO (08:03)
[2024-12-29] MEDS: Senna/Docusate Sodium 1 Tablet 2 TABLET PO ×2 (08:04→20:10)
[2024-12-29] MEDS: metFORMIN HCl 500 MG Tablet PO (08:04)
[2024-12-29] MEDS: Doxycycline 100 MG CAPSULE PO ×2 (08:04→20:10)
[2024-12-29] MEDS: Aspirin E.C. 81 MG Tablet PO ×2 (08:04→17:38)
[2024-12-29] MEDS: Venlafaxine HCl 75 MG Tablet 112.5 MG PO ×2 (08:04→12:33)
[2024-12-29] MEDS: Pantoprazole Sodium 40 MG Tablet PO ×2 (08:04→20:10)
[2024-12-29] MEDS: Folic Acid 1 MG Tablet PO (08:04)
[2024-12-29] MEDS: Polyethylene Glycol 3350 17 GM PACKET PO ×2 (08:04→20:10)
[2024-12-29] MEDS: Dorzolamide 2% 10ml Bottle 1 DRP EACH EYE ×2 (08:05→20:09)
[2024-12-29] MEDS: Juven (unflavored) Packet 1 PACKET PO ×2 (08:05→17:38)
[2024-12-29] MEDS: Topiramate 100 MG Tablet PO (09:19)
[2024-12-29] MEDS: oxyCODONE 5 MG Tablet PO ×2 (09:19→20:21)
[2024-12-29] MEDS: LORazepam 0.5 MG Tablet PO (09:24)
--- NOTE | 2024-12-29 09:40 | PCM.PROGNOTE ---
Subjective Subjective Afebrile Weight is up 8 pounds since admission. Dahl catheter remains in place secondary to urine retention. The blood pressure has ranged from 108/67 to 145/89 over the past 24 hours. Heart rate has ranged from 88-89. intake of food is poor to fair. Poor fluid intake. Fluid balance yesterday was -1440 and overnight she was -610. Had 1 extra-large liquid/diarrhea stool yesterday after 300 cc of magnesium citrate and a Dulcolax suppository. Oxycodone was changed to 5 mg every 6 hours as needed yesterday. She has not taken any oxycodone since yesterday at 11 AM. Hemoglobin today is 7.9 which is down from 8.6 at admission to rehab. Suspect the drop in HGB may be due to better hydration.....wt has increased since admission despite poor food intake. C/O knee pain, ROGER, insomnia. Denies abd pain, CP, SOB, palpitations, N/V, calf pain. Objective Data Objective Data Vital Signs: Vital Signs Temp Pulse Resp BP Pulse Ox O2 Del Method FiO2 97.8 F 89 17 114/76 93 Room Air 96 12/29/24 06:00 12/29/24 06:00 12/29/24 06:00 12/29/24 06:00 12/29/24 07:40 12/29/24 07:40 12/27/24 22:00 Oxygen Delivery Method Room Air Weight: 155 lb 13.869 oz Body Mass Index (BMI) 28.5 Intake & Output: Intake and Output for Last 24 Hours 12/27/24 12/28/24 12/29/24 23:59 23:59 23:59 Intake Total 1620 / 1620 560 / 560 240 / 240 Output Total 1025 / 1875 2000 / 2550 850 / 850 Balance 595 / -255 -1440 / -1990 -610 / -610 Lab / Micro Data 12/29/24 05:26 12/26/24 05:32 Labs: Laboratory Results - last 24 hr 12/28/24 11:08: POC Glucose 91 12/29/24 05:26: Hgb 7.9 L, Hct 25.0 L Micro: Microbiology 12/25/24 22:50 Urine, Catheterized Urine Culture - Final Culture exhibits no growth. Physical Exam Const Constitutional Narrative: More alert today. Still with slurred speech, losing train of thought, not finishing sentences, rambling thoughts that she does not finish. Does not appear to be in any significant discomfort. Was able to roll over on her Left side in the bed easily with no assist. It is not clear to me what her cognitive baseline is? HEENT HEENT Narrative: no thrush Mouth: dry mucous membranes Cardio regular rate, regular rhythm and no gallops Cardio Narrative: no ectopy GI normal to inspection, nondistended, normoactive bowel sounds, soft to palpation and non-tender GI Narrative: no guarding with palpation, Not tympanic. Extremity Extremity Narrative: Some swelling in the R knee. Wound vac is still in place but, will come off tomorrow. No erythema around the dressing. No DC in the vac. The incisions in the thigh are intactwith no dehiscence. No jhonny-incisional erythema and no DC. Minimal swelling of the Left ankle. Assessment & Plan Assessment/Plan (1) Physical debility: (2) History of total right knee replacement: (3) Acute blood loss anemia: (4) Urine retention: (5) Obstipation: (6) Traumatic brain injury: QUALIFIERS: Encounter type: subsequent encounter Loss of consciousness presence/duration: unknown LOC status Qualified Code(s): S06.9XAD - Unspecified intracranial injury with loss of consciousness status unknown, subsequent encounter (7) Aphasia: (8) Dysarthria: (9) Vision loss, bilateral: (10) Anxiety: (11) Insomnia: QUALIFIERS: Insomnia type: unspecified Qualified Code(s): G47.00 - Insomnia, unspecified (12) Depression: QUALIFIERS: Depression Type: unspecified Qualified Code(s): F32.A - Depression, unspecified (13) Essential hypertension: (14) Diabetes mellitus, type 2: QUALIFIERS: Diabetes mellitus [facility] insulin use: without [facility] use (15) Glaucoma: QUALIFIERS: Glaucoma type: primary angle-closure Laterality: bilateral Glaucoma stage: stage unspecified (16) Hypothyroidism: QUALIFIERS: Hypothyroidism type: unspecified Qualified Code(s): E03.9 - Hypothyroidism, unspecified (17) Osteoporosis: QUALIFIERS: Osteoporosis type: unspecified Presence of current pathological fracture: unspecified Qualified Code(s): M81.0 - Age-related osteoporosis without current pathological fracture (18) Migraine: QUALIFIERS: Migraine type: unspecified Status migrainosus presence: without status migrainosus Intractability: intractable Qualified Code(s): G43.919 - Migraine, unspecified, intractable, without status migrainosus (19) Seizure disorder: (20) B12 deficiency: (21) Vitamin D deficiency: (22) Pure hypercholesterolemia: (23) GERD (gastroesophageal reflux disease): QUALIFIERS: Esophagitis presence: without esophagitis Qualified Code(s): K21.9 - Gastro-esophageal reflux disease without esophagitis PLAN: Plan 1. Continue therapy 2. Overnight trending pulse ox 3. Hemoccult stool 4. KUB today .....if constipation is much improved will restart the iron supplement every other day. 5. Recheck an HH in the AM 6. CBC and BMP on Wednesday Charges/Coding Visit Charges Inpatient E&M: 75878 Subs Hosp L1
--- NOTE | 2024-12-29 12:25 | RAD_ITS ---
EXAM: XR Abdomen, 1 View CLINICAL INDICATION: CONSTIPATION TECHNIQUE: Frontal supine view of the abdomen/pelvis. COMPARISON: No relevant prior studies available. FINDINGS: GASTROINTESTINAL TRACT: Fecal retention in the colon consistent with constipation. No dilation. BONES/JOINTS: Unremarkable. No acute fracture. RAD/Abdomen Single View IMPRESSION: Fecal retention in the colon consistent with constipation. Reading Location: [facility]
[2024-12-29] MEDS: Ascorbic Acid 500 MG Tablet PO ×2 (12:33→17:38)
[2024-12-29 17:19] VITALS: BP 115/75; PULSE 58; RESP 17; TEMP 36.6; O2SAT 95
[2024-12-29] MEDS: Venlafaxine HCl 75 MG Tablet PO (17:38)
[2024-12-29] MEDS: Bisacodyl 5 MG Tablet 10 MG PO (17:38)
[2024-12-29 19:35] VITALS: PULSE 93; O2SAT 98
[2024-12-29] MEDS: Latanoprost 0.005% 1 Bottle 1 DRP EACH EYE (20:09)
[2024-12-29] MEDS: Atorvastatin Calcium 20 MG Tablet PO (20:10)
[2024-12-29] MEDS: Topiramate 100 MG Tablet 300 MG PO (20:11)
[2024-12-30 05:45] VITALS: BP 123/75; PULSE 93; RESP 18; TEMP 36.4; O2SAT 96
[2024-12-30] MEDS: Saliva Substitute 237 ML BOTTLE 15 ML MUCOUS MEM ×5 (05:49→21:08)
[2024-12-30] MEDS: Levothyroxine 50 MCG Tablet PO (05:51)
[2024-12-30] MEDS: Bisacodyl 10 MG Suppository RC (05:54)
[2024-12-30] MEDS: Gabapentin 600 MG Tablet PO ×3 (05:54→21:15)
[2024-12-30 06:36] LABS: Hematocrit 26.2 % (37-47); Hemoglobin 8.3 g/dL (12.0-15.0)
[2024-12-30] MEDS: Pantoprazole Sodium 40 MG Tablet PO ×2 (08:46→21:12)
[2024-12-30] MEDS: Doxycycline 100 MG CAPSULE PO ×2 (08:46→21:12)
[2024-12-30] MEDS: metFORMIN HCl 500 MG Tablet PO (08:46)
[2024-12-30] MEDS: Venlafaxine HCl 75 MG Tablet 112.5 MG PO ×2 (08:46→12:15)
[2024-12-30] MEDS: Polyethylene Glycol 3350 17 GM PACKET PO ×2 (08:46→21:12)
[2024-12-30] MEDS: Latanoprost 0.005% 1 Bottle 1 DRP EACH EYE (08:46)
[2024-12-30] MEDS: Juven (unflavored) Packet 1 PACKET PO ×2 (08:46→17:04)
[2024-12-30] MEDS: Bisacodyl 5 MG Tablet 10 MG PO (08:46)
[2024-12-30] MEDS: Senna/Docusate Sodium 1 Tablet 2 TABLET PO ×2 (08:46→21:11)
[2024-12-30] MEDS: Topiramate 100 MG Tablet PO (08:46)
[2024-12-30] MEDS: Folic Acid 1 MG Tablet PO (08:46)
[2024-12-30] MEDS: Dorzolamide 2% 10ml Bottle 1 DRP EACH EYE ×2 (08:47→21:11)
[2024-12-30] MEDS: Aspirin E.C. 81 MG Tablet PO ×2 (08:48→17:04)
[2024-12-30] MEDS: Multivitamins,Therapeutic Tablet 1 TABLET PO (12:14)
[2024-12-30] MEDS: Ascorbic Acid 500 MG Tablet PO ×2 (12:15→17:04)
[2024-12-30] MEDS: Venlafaxine HCl 75 MG Tablet PO (17:04)
[2024-12-30] MEDS: Acetaminophen 500 MG Tablet 1000 MG PO (17:05)
[2024-12-30 18:00] VITALS: BP 132/83; PULSE 92; RESP 18; TEMP 36.6; O2SAT 98
[2024-12-30] MEDS: oxyCODONE 5 MG Tablet PO (19:51)
[2024-12-30] MEDS: Topiramate 100 MG Tablet 300 MG PO (21:12)
[2024-12-30] MEDS: Atorvastatin Calcium 20 MG Tablet PO (21:12)
[2024-12-31 06:00] VITALS: BP 139/89; PULSE 90; RESP 16; TEMP 36.7; O2SAT 99
[2024-12-31] MEDS: Levothyroxine 50 MCG Tablet PO (06:10)
[2024-12-31] MEDS: Saliva Substitute 237 ML BOTTLE 15 ML MUCOUS MEM ×3 (06:10→22:39)
[2024-12-31] MEDS: Bisacodyl 10 MG Suppository RC (06:15)
[2024-12-31] MEDS: Gabapentin 600 MG Tablet PO ×3 (06:15→22:38)
[2024-12-31] MEDS: Acetaminophen 500 MG Tablet 1000 MG PO (06:15)
[2024-12-31] MEDS: Venlafaxine HCl 75 MG Tablet 112.5 MG PO ×2 (08:29→12:18)
[2024-12-31] MEDS: Folic Acid 1 MG Tablet PO (08:29)
[2024-12-31] MEDS: Aspirin E.C. 81 MG Tablet PO ×2 (08:29→18:11)
[2024-12-31] MEDS: Pantoprazole Sodium 40 MG Tablet PO ×2 (08:29→22:43)
[2024-12-31] MEDS: metFORMIN HCl 500 MG Tablet PO (08:29)
[2024-12-31] MEDS: Senna/Docusate Sodium 1 Tablet 2 TABLET PO ×2 (08:30→22:38)
[2024-12-31] MEDS: Topiramate 100 MG Tablet PO (08:30)
[2024-12-31] MEDS: Dorzolamide 2% 10ml Bottle 1 DRP EACH EYE ×2 (08:31→22:39)
[2024-12-31] MEDS: Bisacodyl 5 MG Tablet 10 MG PO (08:31)
[2024-12-31] MEDS: Doxycycline 100 MG CAPSULE PO ×2 (08:31→22:38)
[2024-12-31] MEDS: Juven (unflavored) Packet 1 PACKET PO (08:32)
[2024-12-31] MEDS: Polyethylene Glycol 3350 17 GM PACKET PO ×2 (08:32→22:37)
[2024-12-31] MEDS: oxyCODONE 5 MG Tablet PO ×2 (09:18→18:11)
[2024-12-31 10:00] VITALS: O2SAT 96
[2024-12-31] MEDS: Ascorbic Acid 500 MG Tablet PO ×2 (12:18→18:12)
[2024-12-31] MEDS: Multivitamins,Therapeutic Tablet 1 TABLET PO (12:18)
[2024-12-31 17:02] VITALS: BP 132/82; PULSE 90; RESP 16; TEMP 36.6; O2SAT 98
[2024-12-31] MEDS: Venlafaxine HCl 75 MG Tablet PO (18:11)
[2024-12-31 22:00] VITALS: PULSE 90; RESP 15; O2SAT 98
[2024-12-31] MEDS: Latanoprost 0.005% 1 Bottle 1 DRP EACH EYE (22:35)
[2024-12-31] MEDS: Topiramate 100 MG Tablet 300 MG PO (22:38)
[2024-12-31] MEDS: Atorvastatin Calcium 20 MG Tablet PO (22:38)
[2025-01-01] MEDS: oxyCODONE 5 MG Tablet PO ×2 (00:25→22:55)
[2025-01-01] MEDS: Gabapentin 600 MG Tablet PO ×3 (05:49→22:55)
[2025-01-01] MEDS: Levothyroxine 50 MCG Tablet PO (05:49)
[2025-01-01] MEDS: Bisacodyl 10 MG Suppository RC (05:49)
[2025-01-01] MEDS: Saliva Substitute 237 ML BOTTLE 15 ML MUCOUS MEM ×4 (05:50→22:56)
[2025-01-01 05:59] LABS: Hematocrit 26.3 % (37-47); Hemoglobin 8.3 g/dL (12.0-15.0); Mean Corp Hgb Conc 31.6 g/dL (32-36); Mean Corpuscular Hgb 30.5 pg (27.0-32.0); Mean Corpuscular Volume 96.7 fL (81-99); Mean Platelet Vol. 8.9 fl (6.2-12.0); Platelet Count 402 K/mm3 (150-450); RBC Distribution Width CV 15.4 % (11.6-14.6); RBC Distribution Width SD 53.6 fl (35.1-43.9); Red Blood Count 2.72 M/mm3 (4.2-5.4); White Blood Count 5.1 K/mm3 (4.4-11.0)
[2025-01-01 06:00] VITALS: BP 131/84; PULSE 90; RESP 13; TEMP 36.6; O2SAT 100
[2025-01-01 06:19] LABS: Anion Gap 9 (5-15); BUN 18 mg/dL (4-19); BUN/Creat Ratio 24.8 RATIO (10-20); Calcium,Total 9.3 mg/dL (7.6-11.0); Carbon Dioxide 21.8 mmol/L (21.0-32.0); Chloride 113 mmol/L (98-108); Creatinine, Serum 0.71 mg/dL (0.70-1.20); EST Glomerular Filtration Rate 95 (>60); Estimated Creatinine Clearance 64.57 ml/min (50-250); Glucose 93 mg/dL (70-99); Potassium 3.6 mmol/L (3.3-5.1); Sodium Level 144 mmol/L (133-145)
[2025-01-01] MEDS: Juven (unflavored) Packet 1 PACKET PO (07:54)
[2025-01-01] MEDS: Dorzolamide 2% 10ml Bottle 1 DRP EACH EYE ×2 (07:55→22:49)
[2025-01-01] MEDS: Topiramate 100 MG Tablet PO (07:55)
[2025-01-01] MEDS: Doxycycline 100 MG CAPSULE PO ×2 (07:55→22:55)
[2025-01-01] MEDS: Polyethylene Glycol 3350 17 GM PACKET PO ×2 (07:55→22:56)
[2025-01-01] MEDS: Multivitamins,Therapeutic Tablet 1 TABLET PO (07:55)
[2025-01-01] MEDS: Venlafaxine HCl 75 MG Tablet 112.5 MG PO ×2 (07:56→12:04)
[2025-01-01] MEDS: Senna/Docusate Sodium 1 Tablet 2 TABLET PO ×2 (07:56→22:55)
[2025-01-01] MEDS: Bisacodyl 5 MG Tablet 10 MG PO (07:56)
[2025-01-01] MEDS: Pantoprazole Sodium 40 MG Tablet PO ×2 (07:57→22:55)
[2025-01-01] MEDS: Folic Acid 1 MG Tablet PO (07:57)
[2025-01-01] MEDS: metFORMIN HCl 500 MG Tablet PO (07:57)
[2025-01-01] MEDS: Aspirin E.C. 81 MG Tablet PO ×2 (07:57→16:33)
--- NOTE | 2025-01-01 09:15 | PN_ITS ---
Subjective Subjective Afebrile VSS - Maintaining appropriate oxygen saturation on RA Oral intake - FOOD highly variable. Ranges from 25 to 49% to 75 to 100%. FLUIDS good Discussed with nursing - no problems that need addressed. Wound VAC was removed on 12/30/2024. Reviewed the THERAPY notes Medication list reviewed. She took oxycodone 10 mg 3 times in the past 24 hours. Has not had Ativan since the order was changed to for seizures only. Has not requested Flexeril. Had Dulcolax 10 mg daily over the weekend. Had 2 extra-large soft bowel movements yesterday and was incontinent of stool. On Wednesday had 1 small and 1 large liquid bowel movement. All lab was personally reviewed. White blood cell count is normal at 5.1. Hemoglobin is stable at 8.3. Platelets are within normal limits. Sodium is 144 and the potassium is 3.6. BUN is 18 with a creatinine of 0.71. Hemoccult stool was negative. Objective Data Objective Data Vital Signs: Vital Signs Temp Pulse Resp BP Pulse Ox O2 Del Method FiO2 97.9 F 90 13 131/84 H 100 Room Air 21 01/01/25 06:00 01/01/25 06:00 01/01/25 06:00 01/01/25 06:00 01/01/25 06:00 01/01/25 06:00 12/29/24 19:35 Oxygen Delivery Method Room Air Weight: 155 lb 13.869 oz Body Mass Index (BMI) 28.5 Intake & Output: Intake and Output for Last 24 Hours 12/30/24 12/31/24 01/01/25 23:59 23:59 23:59 Intake Total 1590 / 1590 1650 / 1650 750 / 750 Output Total 2250 / 2250 2150 / 2150 600 / 600 Balance -660 / -660 -500 / -500 150 / 150 Lab / Micro Data 01/01/25 05:24 01/01/25 05:24 Labs: Laboratory Results - last 24 hr 01/01/25 05:24: WBC 5.1, RBC 2.72 L, Hgb 8.3 L, Hct 26.3 L, MCV 96.7, MCH 30.5, MCHC 31.6 L, RDW Std Deviation 53.6 H, RDW Coeff of Lobo 15.4 H, Plt Count 402, MPV 8.9, Sodium 144, Potassium 3.6, Chloride 113 H, Carbon Dioxide 21.8, Anion Gap 9, BUN 18, Creatinine 0.71, Estim Creat Clear Calc 64.57, Est GFR (MDRD) Non-Af 95, BUN/Creatinine Ratio 24.8 H, Glucose 93, Calcium 9.3 Micro: Microbiology 12/30/24 11:30 Stool Stool Occult Blood (NELA) - Final 12/25/24 22:50 Urine, Catheterized Urine Culture - Final Culture exhibits no growth. Physical Exam Const alert Constitutional Narrative: Everyone agrees she is more alert today. Speech is more intelligible and she is able to stay on topic when speaking with me. she is cooperative and appropriate today. Making good eye contact with me. General Appearance: cooperative and well kempt HEENT normocephalic and head/scalp atraumatic HEENT Narrative: no thrush Eyes conjunctivae normal and no scleral icterus Eyes Narrative: The left pupil is dilated and not responsive to light. She is blind in that eye. she has ptosis on the R and the pupil is responsive to light. There is no DC from the eye. Neck No nodes and no carotid bruits General: trachea midline Chest Chest: symmetrical chest wall rise Resp clear to auscultation bilaterally Resp Narrative: No conversational dyspnea. Effort and Inspection: Negative for tachypneic or labored Cardio regular rate, regular rhythm and no gallops Cardio Narrative: no ectopy GI normal to inspection, nondistended, normoactive bowel sounds, soft to palpation and non-tender GI Narrative: no guarding with palpation, Not tympanic. no CVA tenderness Bladder / Kidney Exam: catheter in place urethral (inserted following admission to rehab for urine retention. UA negative for infection. ) Extremity normal capillary refill and no calf tenderness Extremity Narrative: trace edma of the Left ankle. HEMAL hose are in place Skin Rashes: no rashes Wound Narrative: Will examine the incision tomorrow when the dressing is changed. Nursing just changed the dressing and tell me that there is no dehiscence and no erythema or DC. She has no R ankle edema. Neuro moves all extremities Neuro Narrative: More alert since the Oxycodone was decreased and the Ambien was discontinued. She slept OK per nursing. Psych cooperative, denies hallucinations, denies homicidal ideation and denies suicidal ideation Appearance: appropriate and well kempt Activity / Motor Behavior: Negative for psychomotor agitation or psychomotor slowing Speech: soft and slurred Mood & Affect: depressed and anxious Thought Process: other Trouble focusing and staying on topic. Loses her train of thought and has to be redirected. Impaired concentration and attention. Assessment & Plan Assessment/Plan (1) Physical debility: (2) History of total right knee replacement: (3) Acute blood loss anemia: (4) Urine retention: (5) Obstipation: (6) Traumatic brain injury: QUALIFIERS: Encounter type: subsequent encounter Loss of consciousness presence/duration: unknown LOC status Qualified Code(s): S06.9XAD - Unspecified intracranial injury with loss of consciousness status unknown, subsequent encounter (7) Aphasia: (8) Dysarthria: PLAN: much improved with decrease in the sedating medications she was getting. (9) Vision loss, bilateral: (10) Anxiety: PLAN: Doing well on no Lorazepam. No withdrawal sx. (11) Insomnia: QUALIFIERS: Insomnia type: unspecified Qualified Code(s): G47.00 - Insomnia, unspecified (12) Depression: QUALIFIERS: Depression Type: unspecified Qualified Code(s): F32.A - Depression, unspecified (13) Essential hypertension: (14) Diabetes mellitus, type 2: QUALIFIERS: Diabetes mellitus long wall mining machine helper insulin use: without [facility] use (15) Hypothyroidism: QUALIFIERS: Hypothyroidism type: unspecified Qualified Code(s): E 03.9 - Hypothyroidism, unspecified (16) Migraine: QUALIFIERS: Migraine type: unspecified Status migrainosus presence: without status migrainosus Intractability: intractable Qualified Code(s): G43.919 - Migraine, unspecified, intractable, without status migrainosus (17) Seizure disorder: PLAN: Plan 1. Continue therapy 2. Voiding trial today 3. Continue MiraLAX and senna twice daily. TSH normal. I suspect the slurred speech, trouble word finding, confusion and drowsiness were due to overmedication. Will limit sedating medication as much as possible...........decrease the Oxycodone to 5 mg PO Q 6 hours PRN pain 3-10. Charges/Coding Visit Charges Inpatient E&M: 34671 Subs Hosp L1
[2025-01-01] MEDS: Ascorbic Acid 500 MG Tablet PO ×2 (12:04→16:32)
[2025-01-01] MEDS: Acetaminophen 500 MG Tablet 1000 MG PO ×2 (13:04→22:55)
[2025-01-01] MEDS: Venlafaxine HCl 75 MG Tablet PO (16:32)
[2025-01-01 18:00] VITALS: BP 123/79; PULSE 90; RESP 17; TEMP 36.6; O2SAT 97
[2025-01-01 22:00] VITALS: RESP 16; O2SAT 90
[2025-01-01] MEDS: cycloBENZAPRine HCl 5 MG TABLET PO (22:54)
[2025-01-01] MEDS: Atorvastatin Calcium 20 MG Tablet PO (22:55)
[2025-01-01] MEDS: Latanoprost 0.005% 1 Bottle 1 DRP EACH EYE (22:56)
[2025-01-01] MEDS: Topiramate 100 MG Tablet 300 MG PO (22:56)
[2025-01-02 06:00] VITALS: BP 142/58; PULSE 89; RESP 16; TEMP 36.5; O2SAT 98
[2025-01-02] MEDS: Gabapentin 600 MG Tablet PO ×3 (06:05→20:45)
[2025-01-02] MEDS: Saliva Substitute 237 ML BOTTLE 15 ML MUCOUS MEM ×4 (06:05→20:48)
[2025-01-02] MEDS: Acetaminophen 500 MG Tablet 1000 MG PO ×3 (06:05→20:46)
[2025-01-02] MEDS: Levothyroxine 50 MCG Tablet PO (06:10)
[2025-01-02] MEDS: Polyethylene Glycol 3350 17 GM PACKET PO (08:23)
[2025-01-02] MEDS: Dorzolamide 2% 10ml Bottle 1 DRP EACH EYE ×2 (08:23→20:48)
[2025-01-02] MEDS: Folic Acid 1 MG Tablet PO (08:24)
[2025-01-02] MEDS: metFORMIN HCl 500 MG Tablet PO (08:24)
[2025-01-02] MEDS: Aspirin E.C. 81 MG Tablet PO ×2 (08:24→17:31)
[2025-01-02] MEDS: Pantoprazole Sodium 40 MG Tablet PO ×2 (08:24→20:45)
[2025-01-02] MEDS: Venlafaxine HCl 75 MG Tablet 112.5 MG PO ×2 (08:24→13:04)
[2025-01-02] MEDS: Juven (unflavored) Packet 1 PACKET PO ×2 (08:24→17:31)
[2025-01-02] MEDS: Doxycycline 100 MG CAPSULE PO ×2 (08:24→20:47)
[2025-01-02] MEDS: Topiramate 100 MG Tablet PO (08:25)
[2025-01-02] MEDS: Senna/Docusate Sodium 1 Tablet 2 TABLET PO ×2 (08:25→20:47)
[2025-01-02 10:00] VITALS: RESP 16; O2SAT 93
[2025-01-02] MEDS: Ascorbic Acid 500 MG Tablet PO ×2 (13:05→17:31)
[2025-01-02] MEDS: Multivitamins,Therapeutic Tablet 1 TABLET PO (13:05)
--- NOTE | 2025-01-02 15:49 | PN_ITS ---
Subjective Subjective Afebrile VSS - Maintaining appropriate oxygen saturation on RA Oral intake - FOOD ate 75 to 100% of her last 3 meals. FLUIDS good Discussed with nursing - slept off and on last night. Wanting more pain medications at HS but, does not appear to be in any distress. Reviewed the THERAPY notes Medication list reviewed. Has not taken any Oxycodone for pain today. She had 1 at HS last night. Had Flexeril last night but, not taking it regularly. May consider changing the muscle relaxer to baclofen or tizanidine which are less sedating. Doing very well with therapy. She is very alert yesterday and today. Does not do well with medication for insomnia and more than 5 mg of Oxycodone. No calf pain. Denies lightheadedness, chest pain, shortness of breath, cough, nausea/vomiting/abdominal pain, dysuria. Postvoid residual x 2 since discontinuing the Dahl catheter are 66 and 160. The likely etiology of the urine retention at admission was severe constipation and possibly overmedication. Objective Data Objective Data Vital Signs: Vital Signs Temp Pulse Resp BP Pulse Ox O2 Del Method FiO2 97.7 F L 89 16 142/58 H 93 Room Air 21 01/02/25 06:00 01/02/25 06:00 01/02/25 10:00 01/02/25 06:00 01/02/25 10:00 01/02/25 10:00 12/29/24 19:35 Oxygen Delivery Method Room Air Weight: 155 lb 13.869 oz Body Mass Index (BMI) 28.5 Intake & Output: Intake and Output for Last 24 Hours 12/31/24 01/01/25 01/02/25 23:59 23:59 23:59 Intake Total 1650 / 1650 1620 / 1620 490 / 490 Output Total 2150 / 2150 1150 / 1150 900 / 900 Balance -500 / -500 470 / 470 -410 / -410 Lab / Micro Data 01/01/25 05:24 01/01/25 05:24 Micro: Microbiology 12/30/24 11:30 Stool Stool Occult Blood (NELA) - Final 12/25/24 22:50 Urine, Catheterized Urine Culture - Final Culture exhibits no growth. Physical Exam Const alert, oriented x3 and no apparent distress Constitutional Narrative: pleasant and interactive today. Doing much better with therapy with less medication. General Appearance: cooperative Resp clear to auscultation bilaterally Cardio regular rate, regular rhythm and no gallops GI normal to inspection, nondistended, normoactive bowel sounds, soft to palpation and non-tender Extremity no calf tenderness Skin Rashes: no rashes Assessment & Plan Assessment/Plan (1) Physical debility: (2) History of total right knee replacement: (3) Acute blood loss anemia: (4) Urine retention: (5) Obstipation: (6) Traumatic brain injury: QUALIFIERS: Encounter type: subsequent encounter Loss of consciousness presence/duration: unknown LOC status Qualified Code(s): S06.9XAD - Unspecified intracranial injury with loss of consciousness status unknown, subsequent encounter (7) Aphasia: (8) Dysarthria: PLAN: much improved with decrease in the sedating medications she was getting. (9) Vision loss, bilateral: (10) Anxiety: PLAN: Doing well on no Lorazepam. No withdrawal sx. (11) Insomnia: QUALIFIERS: Insomnia type: unspecified Qualified Code(s): G47.00 - Insomnia, unspecified (12) Depression: QUALIFIERS: Depression Type: unspecified Qualified Code(s): F32.A - Depression, unspecified (13) Essential hypertension: (14) Diabetes mellitus, type 2: QUALIFIERS: Diabetes mellitus skilled nursing insulin use: without skilled nursing use (15) Hypothyroidism: QUALIFIERS: Hypothyroidism type: unspecified Qualified Code(s): E 03.9 - Hypothyroidism, unspecified (16) Migraine: QUALIFIERS: Migraine type: unspecified Status migrainosus presence: without status migrainosus Intractability: intractable Qualified Code(s): G43.919 - Migraine, unspecified, intractable, without status migrainosus (17) Seizure disorder: PLAN: Diagnosed at [facility] epilepsy clinic with psychogenic non-epileptic seizures and was referred to CBT but, she discontinued this. Has not been seen in the epilepsy clinic for > 1 year. PLAN: Plan 1. Continue therapy 2. Rather than backing off of stool softeners will restart ferrous sulfate 325 mg daily at lunchtime with ascorbic acid. 3. Pt would like to DC on Wednesday. I D/W PT and they feel she will be safe to DC home on Wednesday. 4. Limit the amount of Oxycodone I give at DC........no more than 5 mg tabs every 6 hours PRN for 7 days only. 5. Recheck a HH on . Charges/Coding Visit Charges Inpatient E&M: 78818 Subs Hosp L1
[2025-01-02] MEDS: Venlafaxine HCl 75 MG Tablet PO (17:30)
[2025-01-02 18:00] VITALS: BP 104/67; PULSE 90; RESP 16; TEMP 36.9; O2SAT 99
[2025-01-02] MEDS: Topiramate 100 MG Tablet 300 MG PO (20:46)
[2025-01-02] MEDS: Atorvastatin Calcium 20 MG Tablet PO (20:47)
[2025-01-02] MEDS: Latanoprost 0.005% 1 Bottle 1 DRP EACH EYE (20:48)
[2025-01-02] MEDS: cycloBENZAPRine HCl 5 MG TABLET PO (22:08)
[2025-01-02] MEDS: oxyCODONE 5 MG Tablet PO (22:08)
[2025-01-03 06:00] VITALS: BP 126/82; PULSE 82; RESP 17; TEMP 36.4; O2SAT 99
[2025-01-03] MEDS: Gabapentin 600 MG Tablet PO ×3 (06:28→21:37)
[2025-01-03] MEDS: Acetaminophen 500 MG Tablet 1000 MG PO ×3 (06:28→21:38)
[2025-01-03] MEDS: Levothyroxine 50 MCG Tablet PO (06:28)
[2025-01-03] MEDS: Saliva Substitute 237 ML BOTTLE 15 ML MUCOUS MEM ×5 (06:29→21:44)
[2025-01-03] MEDS: Venlafaxine HCl 75 MG Tablet 112.5 MG PO ×2 (08:01→11:52)
[2025-01-03] MEDS: Aspirin E.C. 81 MG Tablet PO ×2 (08:01→16:59)
[2025-01-03] MEDS: Senna/Docusate Sodium 1 Tablet 2 TABLET PO ×2 (08:02→21:40)
[2025-01-03] MEDS: metFORMIN HCl 500 MG Tablet PO (08:02)
[2025-01-03] MEDS: Pantoprazole Sodium 40 MG Tablet PO ×2 (08:02→21:38)
[2025-01-03] MEDS: Topiramate 100 MG Tablet PO (08:02)
[2025-01-03] MEDS: Folic Acid 1 MG Tablet PO (08:02)
[2025-01-03] MEDS: Doxycycline 100 MG CAPSULE PO ×2 (08:02→21:38)
[2025-01-03] MEDS: Juven (unflavored) Packet 1 PACKET PO ×2 (08:02→16:59)
[2025-01-03] MEDS: Dorzolamide 2% 10ml Bottle 1 DRP EACH EYE ×2 (08:02→21:44)
[2025-01-03] MEDS: Ferrous Sulfate 325 MG Tablet PO (11:52)
[2025-01-03] MEDS: Multivitamins,Therapeutic Tablet 1 TABLET PO (11:52)
[2025-01-03] MEDS: Ascorbic Acid 500 MG Tablet PO ×2 (11:52→16:59)
[2025-01-03] MEDS: Venlafaxine HCl 75 MG Tablet PO (16:59)
[2025-01-03 17:30] VITALS: BP 125/81; PULSE 85; RESP 16; TEMP 36.4; O2SAT 100
[2025-01-03] MEDS: Latanoprost 0.005% 1 Bottle 1 DRP EACH EYE (21:37)
[2025-01-03] MEDS: Topiramate 100 MG Tablet 300 MG PO (21:38)
[2025-01-03] MEDS: Atorvastatin Calcium 20 MG Tablet PO (21:38)
[2025-01-03] MEDS: cycloBENZAPRine HCl 5 MG TABLET PO (21:44)
[2025-01-03] MEDS: oxyCODONE 5 MG Tablet PO (21:44)
[2025-01-04 06:00] VITALS: BP 140/80; PULSE 82; RESP 16; TEMP 36.6; O2SAT 97
[2025-01-04] MEDS: Levothyroxine 50 MCG Tablet PO (06:19)
[2025-01-04] MEDS: Gabapentin 600 MG Tablet PO ×3 (06:19→20:16)
[2025-01-04] MEDS: Acetaminophen 500 MG Tablet 1000 MG PO ×3 (06:22→20:17)
[2025-01-04] MEDS: Venlafaxine HCl 75 MG Tablet 112.5 MG PO ×2 (08:40→13:21)
[2025-01-04] MEDS: Folic Acid 1 MG Tablet PO (08:40)
[2025-01-04] MEDS: Aspirin E.C. 81 MG Tablet PO ×2 (08:40→17:41)
[2025-01-04] MEDS: metFORMIN HCl 500 MG Tablet PO (08:40)
[2025-01-04] MEDS: Topiramate 100 MG Tablet PO (08:40)
[2025-01-04] MEDS: Pantoprazole Sodium 40 MG Tablet PO ×2 (08:40→20:16)
[2025-01-04] MEDS: Dorzolamide 2% 10ml Bottle 1 DRP EACH EYE ×2 (08:40→20:18)
[2025-01-04] MEDS: Senna/Docusate Sodium 1 Tablet 2 TABLET PO ×2 (08:41→20:16)
[2025-01-04] MEDS: Doxycycline 100 MG CAPSULE PO ×2 (08:41→20:16)
[2025-01-04] MEDS: Juven (unflavored) Packet 1 PACKET PO ×2 (08:41→17:41)
[2025-01-04 10:00] VITALS: O2SAT 95
--- NOTE | 2025-01-04 10:17 | PN_ITS ---
Subjective Subjective Angelia was seen on team rounds today. Afebrile VSS - Maintaining appropriate oxygen saturation on RA She had 1 bowel movement yesterday and 2 bowel movements on 01/02/2025. Refused MiraLAX last night. Discussed with nursing - no problems that need addressed overnight. Reviewed the THERAPY notes Medication list reviewed. Only had 1 dose of oxycodone 5 mg yesterday. She had 1 dose of Flexeril 5 mg. sleeps off and on at night. Denies CP, SOB, palpitations, N/V. Bowels are moving well now and we are going to be able to cut back on stool softeners. Having pain but, tolerating with minimal muscles relaxers and narcotics. Objective Data Objective Data Vital Signs: Vital Signs Temp Pulse Resp BP Pulse Ox O2 Del Method FiO2 97.9 F 82 16 140/80 H 97 Room Air 01/04/25 06:00 01/04/25 06:00 01/04/25 06:00 01/04/25 06:00 01/04/25 06:00 01/04/25 06:00 12/29/24 19:35 Oxygen Delivery Method Room Air Weight: 155 lb 13.869 oz Body Mass Index (BMI) 28.5 Intake & Output: Intake and Output for Last 24 Hours 01/02/25 01/03/25 01/04/25 23:59 23:59 23:59 Intake Total 490 / 690 1290 / 1290 120 / 120 Output Total 1100 / 1100 600 / 600 300 / 300 Balance -610 / -410 690 / 690 -180 / -180 Lab / Micro Data 01/01/25 05:24 01/01/25 05:24 Micro: Microbiology 12/30/24 11:30 Stool Stool Occult Blood (NELA) - Final 12/25/24 22:50 Urine, Catheterized Urine Culture - Final Culture exhibits no growth. Physical Exam Const alert, oriented x3 and no apparent distress Resp clear to auscultation bilaterally Cardio regular rate, regular rhythm and no gallops GI normal to inspection, nondistended, normoactive bowel sounds, soft to palpation and non-tender Extremity no calf tenderness Skin Rashes: no rashes Wound Narrative: All sutures have been removed. Incisions are intact with no dehiscence. There is no jhonny-incisional erythema and no DC from the incisions. Neuro Neuro Narrative: No trouble with word finding, no dysarthria. Alert and appropriate. Moving all extremities. Psych thought process normal, cooperative and affect normal Psych Narrative: Has not been getting Ativan for anxiety. Assessment & Plan Assessment/Plan (1) Physical debility: (2) History of total right knee replacement: (3) Acute blood loss anemia: (4) Urine retention: (5) Obstipation: (6) Traumatic brain injury: QUALIFIERS: Encounter type: subsequent encounter Loss of consciousness presence/duration: unknown LOC status Qualified Code(s): S06.9XAD - Unspecified intracranial injury with loss of consciousness status unknown, subsequent encounter (7) Aphasia: (8) Dysarthria: PLAN: much improved with decrease in the sedating medications she was getting. (9) Vision loss, bilateral: (10) Anxiety: PLAN: Doing well on no Lorazepam. No withdrawal sx. (11) Insomnia: QUALIFIERS: Insomnia type: unspecified Qualified Code(s): G47.00 - Insomnia, unspecified (12) Depression: QUALIFIERS: Depression Type: unspecified Qualified Code(s): F32.A - Depression, unspecified (13) Essential hypertension: (14) Diabetes mellitus, type 2: QUALIFIERS: Diabetes mellitus medical claims assistant insulin use: without medical claims assistant use (15) Hypothyroidism: QUALIFIERS: Hypothyroidism type: unspecified Qualified Code(s): E 03.9 - Hypothyroidism, unspecified (16) Migraine: QUALIFIERS: Migraine type: unspecified Status migrainosus presence: without status migrainosus Intractability: intractable Qualified Code(s): G43.919 - Migraine, unspecified, intractable, without status migrainosus (17) Seizure disorder: PLAN: 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 Has not been seen in the epilepsy clinic for > 1 year. PLAN: Plan 1. Dc home tomorrow with [facility] 2. She is agreeable to a referral to post DC. 3. Would like to change PCP's. She is going [facility]. 4. Try Trazodone tonight for insomnia. Charges/Coding Visit Charges Inpatient E&M: 90834 Subs Hosp L2
--- NOTE | 2025-01-04 10:32 | NURSING ---
Shyla for Dr Tinsley's office requesting permission to remove stables. Waiting for return call.
--- NOTE | 2025-01-04 12:58 | NURSING ---
Staple removal completed per order from [facility]. 18 milton removed. DSD placed for patient per [facility]. Instructed to remove in 2 days and can shower in two days as well. Patient tolerated well. Denies any pain.
[2025-01-04] MEDS: Multivitamins,Therapeutic Tablet 1 TABLET PO (13:22)
[2025-01-04] MEDS: Ascorbic Acid 500 MG Tablet PO ×2 (13:22→17:41)
[2025-01-04] MEDS: Ferrous Sulfate 325 MG Tablet PO (13:22)
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
[2025-01-04] MEDS: Sodium Ferric Gluconat/Sucrose 250 MG in 0.9% Normal Saline (250mL Bag) 250 ML 135 MG IV (14:43)
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
[2025-01-04] MEDS: Venlafaxine HCl 75 MG Tablet PO (17:41)
[2025-01-04] MEDS: oxyCODONE 5 MG Tablet PO (17:45)
[2025-01-04 17:55] VITALS: BP 136/70; PULSE 80; RESP 16; TEMP 36.6; O2SAT 97
[2025-01-04] MEDS: Topiramate 100 MG Tablet 300 MG PO (20:16)
[2025-01-04] MEDS: Latanoprost 0.005% 1 Bottle 1 DRP EACH EYE (20:16)
[2025-01-04] MEDS: traZODone 100 MG Tablet PO (20:16)
[2025-01-04] MEDS: Atorvastatin Calcium 20 MG Tablet PO (20:16)
[2025-01-05] MEDS: oxyCODONE 5 MG Tablet PO (00:28)
[2025-01-05] MEDS: Gabapentin 600 MG Tablet PO (05:13)
[2025-01-05] MEDS: Acetaminophen 500 MG Tablet 1000 MG PO (05:13)
[2025-01-05] MEDS: Saliva Substitute 237 ML BOTTLE 15 ML MUCOUS MEM ×2 (05:13→08:10)
[2025-01-05] MEDS: Levothyroxine 50 MCG Tablet PO (05:13)
[2025-01-05 06:00] VITALS: BP 136/78; PULSE 86; RESP 18; TEMP 36.7; O2SAT 97; BMI 28.5
[2025-01-05] MEDS: metFORMIN HCl 500 MG Tablet PO (08:11)
[2025-01-05] MEDS: Aspirin E.C. 81 MG Tablet PO (08:12)
[2025-01-05] MEDS: Folic Acid 1 MG Tablet PO (08:12)
[2025-01-05] MEDS: Venlafaxine HCl 75 MG Tablet 112.5 MG PO ×2 (08:12→11:36)
[2025-01-05] MEDS: Ergocalciferol 1.25 MG (50, 000 UNIT) Capsule PO (08:13)
[2025-01-05] MEDS: Polyethylene Glycol 3350 17 GM PACKET PO (08:13)
[2025-01-05] MEDS: Topiramate 100 MG Tablet PO (08:14)
[2025-01-05] MEDS: Doxycycline 100 MG CAPSULE PO (08:14)
[2025-01-05] MEDS: Senna/Docusate Sodium 1 Tablet 2 TABLET PO (08:14)
[2025-01-05] MEDS: Pantoprazole Sodium 40 MG Tablet PO (08:15)
[2025-01-05] MEDS: Dorzolamide 2% 10ml Bottle 1 DRP EACH EYE (08:15)
--- NOTE | 2025-01-05 08:27 | DS.PCM_ITS ---
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 Q8H PRN PRN (Reason: pain) oxycodone 5 mg tablet 5 - 10 mg PO Q6H PRN (Reason: pain) Patient Comments: one tab pain 1-5 two tabs pain 6-10 Referrals / Follow Up: Lydia Wen [Other] - 01/11/25 8:[address] [Other] - 01/17/25 9:00 am Angelo Ruggiero MD [Primary Care Provider] - 01/18/25 9:00 am [facility] [Group of Physicians] - 01/09/25 2:30 pm (appt will last 30-45 minutes) Disposition Disposition (needs filled in before D/C Order can be placed): Home, Self Care Charges/Coding Visit Charges Inpatient E&M: 69166 Disch Hosp >30min
[2025-01-05] MEDS: Ascorbic Acid 500 MG Tablet PO (11:36)
[2025-01-05] MEDS: Multivitamins,Therapeutic Tablet 1 TABLET PO (11:36)
[2025-01-05] MEDS: 0.9% Saline Lock 10 ML Syringe IV (11:36)
[2025-01-05] MEDS: Ferrous Sulfate 325 MG Tablet PO (11:36)
== END 2025-01-05 13:46 | disposition home or self-care (01) | DRG 560 ==
PROVIDERS: Admitting Provider Internal Medicine; PCP Family Medicine; Referring Provider Internal Medicine; Visit Provider Internal Medicine
DX: Z47.1 Aftercare following joint replacement surgery (principal); H40.213 Acute angle-closure glaucoma, bilateral; F44.5 Conversion disorder with seizures or convulsions; E11.39 Type 2 diabetes mellitus with other diabetic ophthalmic complication; F32.A Depression, unspecified; I10 Essential (primary) hypertension; E03.9 Hypothyroidism, unspecified; H54.7 Unspecified visual loss; E55.9 Vitamin D deficiency, unspecified; E78.00 Pure hypercholesterolemia, unspecified; E53.8 Deficiency of other specified B group vitamins; K21.9 Gastro-esophageal reflux disease without esophagitis; K59.00 Constipation, unspecified; G43.911 Migraine, unspecified, intractable, with status migrainosus; S06.9X0D Unspecified intracranial injury without loss of consciousness, subsequent encounter; R33.9 Retention of urine, unspecified; Z79.82 Long term (current) use of aspirin; Z79.84 Long term (current) use of oral hypoglycemic drugs; M81.0 Age-related osteoporosis without current pathological fracture; F43.10 Post-traumatic stress disorder, unspecified; F41.1 Generalized anxiety disorder; G47.00 Insomnia, unspecified; Z98.84 Bariatric surgery status; Z79.899 Other long term (current) drug therapy; Z79.890 Hormone replacement therapy; D62 Acute posthemorrhagic anemia
CPT/HCPCS: 36415; 74018; 80048; 80053; 81001; 82274; 82607; 82728; 82746; 82962; 83036; 83540; 83550; 83735; 84100; 84443; 85014; 85018; 85027; 87086; 92507; 92523; 94762; 97110; 97116; 97129; 97130; 97162; 97166; 97530; 97535; 97542; 97802; 97803; A4216; J2916

== ENCOUNTER 2025-02-24 11:58 | Emergency (ER) | payer MEDICARE, OTHER, SELFPAY ==
[2025-02-24 11:58] VITALS: BP 93/63; PULSE 82; RESP 16; TEMP 36.6; O2SAT 98; BMI 21.4
--- NOTE | 2025-02-24 12:47 | RAD_ITS ---
PROCEDURE: KNEE 1 OR 2 VIEWS 02/24/2025 REASON FOR EXAM: INJURY/PAIN TECHNIQUE: KNEE 1 OR 2 VIEWS COMPARISON: None FINDINGS: Postoperative changes from right total knee arthroplasty with patellar resurfacing. No hardware fracture or perihardware lucency. There is slightly enlarged appearance of the distal femur with trabecular thickening. Knee joint effusion and prepatellar soft tissue swelling are present. Punctate densities in the thigh soft tissues may be vascular or postoperative. RAD/Knee 1 or 2 Views IMPRESSION: 1. No displaced fracture or hardware complication of the right knee. Knee sherri nt effusion and swelling may be postoperative and/or posttraumatic. 2. Slight enlargement of the distal femur with trabecular thickening, as can b e seen with a metabolic disorder (such as Paget's disease) or neoplasm. Recommend comparison with prior radiographs if available . Reading Location: [id number]
--- NOTE | 2025-02-24 12:47 | RAD_ITS ---
PROCEDURE: HIP, UNI W/ PELVIS 2-3 VIEWS 02/24/2025 REASON FOR EXAM: INJURY/PAIN TECHNIQUE: HIP, UNI W/ PELVIS 2-3 VIEWS COMPARISON: None FINDINGS: No displaced fracture or traumatic malalignment. The visualized sacral ala appear intact. [id number] joint space narrowing in both hips. Degenerative changes of the sacroiliac joints and lumbar spine. Soft tissues are unremarkable. RAD/HIP, UNI W/ Pelvis 2-3 Views IMPRESSION: No displaced pelvic fracture. Consider CT if there is persistent concern for a nondisplaced fracture. Reading Location: [id number]
--- NOTE | 2025-02-24 12:47 | RAD_ITS ---
PROCEDURE: ELBOW MIN 3 VIEWS 02/24/2025 REASON FOR EXAM: INJURY/PAIN TECHNIQUE: ELBOW MIN 3 VIEWS COMPARISON: None FINDINGS: No traumatic malalignment. There is questionable curvilinear calcification adjacent to the coronary process of the ulna on the lateral view. No significant joint effusion. Bone mineral density is subjectively normal. The soft tissues are unremarkable. RAD/Elbow min 3 Views IMPRESSION: Questionable curvilinear calcification near the coronary process of the ulna co uld represent tiny fracture fragment, though artifact could appear similar. Correlate with exam, and consider repeat radiog raphs in 10-14 days. Reading Location: [id number]
--- OUTSIDE RECORDS SUMMARY | 2025-02-24 12:52 | XMS RPT_ITS | CCD ---
Author Organization [facility] CliniSyak Care Team Providers Care Third Loader Name Role Phone Veronique Quezada Unavailable Unavailable Marie Sanchez Unavailable Unavailable Marie Sanchez Unavailable Unavailable Eugene Sanchez MD Primary Care Provider Eugene Sanchez MD Unavailable Eugene Sanchez MD Primary Care Provider Eugene Sanchez MD Unavailable Eugene Sanchez MD Primary Care Provider Eugene Sanchez MD Unavailable Eugene Sanchez MD Primary Care Provider Eugene Sanchez MD Unavailable CASPER MEDRANO Referring Unavailable EUGENE SANCHEZ Primary Care Unavailab Eugene Miller MD Primary Care Provider AB GRANT Attending Unavailable EUGENE SANCHEZ Primary Care Unavailab le Podlogar LOG INSPECTOR.Sybil MOREIRA Unavailable Solitario Ivory Unavailable Unavailable Knoble LOG INSPECTOR.Duyen MOREIRA Unavailable Alaina LOG INSPECTOR.Duyen MOREIRA Unavailable EUGENE SANCHEZ Primary Care Unavailab le PREBISH, LINNEA Attending Unavailable EUGENE SANCHEZ Primary Care Unavailab le PREBISH, LINNEA Attending Unavailable EUGENE SANCHEZ Primary Care Unavailab le PREBISH, LINNEA Attending Unavailable PREBISH, LINNEA Attending Unavailable EUGENE SANCHEZ Primary Care Unavailab le PREBISH, LINNEA Attending Unavailable BURSLEY, CHRISTOPHER B Primary Care Unavailab le LAURA, MARILYNOPHER B Primary Care Unavailab le TU JERRY Attending Unavailable PREBISH, LINNEA Referring Unavailable LAURA CHRISTOPHER B Primary Care Unavailab le PREBISH, LINNEA Attending Unavailable MARIANO SANCHEZER B Primary Care Unavailab le TU JERRY Attending Unavailable PREBISH, LINNEA Referring Unavailable LINOTU WALKER Attending Unavailable LAURA CHRISTOPHER B Primary Care Unavailab le PREBISH, LINNEA Referring Unavailable Dean Tinsley MD Unavailable Dean Tinsley MD Unavailable [phone] Alaina LOG INSPECTOR.Duyen MOREIRA Unavailable MARIANO SANCHEZER B Primary Care Unavailab DEAN Nieto Referring Unavail able LAURA CHRISTOPHER B Primary Care Unavailab le LAURA, CHRISTOPHER B Primary Care Unavailab DEAN Nieto Referring Unavail able LAURA CHRISTOPHER B Primary Care Unavailab DEAN Nieto Referring Unavail able DEAN TINSLEY Admitting Unavail able LAURA CHRISTOPHER B Primary Care Unavailab LUCAS Krishna Consulting Unavailable DEAN TINSLEY Attending Unavail able Knoble LOG INSPECTOR.Duyen MOREIRA Unavailable Sementi, Cathy Torres Admitting Unavaila ble Sementi, Cathy Torres Referring Unavaila ble Brad Deanna, Rashmi Primary Care Unavailable Sementi, Cathy Torres Attending Unavaila ble Sementi, Cathy Torres Consulting Unavaila ble Sementi, Cathy Torres Referring Unavaila ble Angelo Sanchez Primary Care Unavailable Sementi, Cathy Torres Admitting Unavaila ble Sementi, Cathy Torres Attending Unavaila ble Brad [facility], Rashmi Primary Care Unavailable Dean Tinsley Referring Unavailable Dean Tinsley Unavailable LAURA CHRISTOPHER B Primary Care Unavailab le ZINA WISE Referring Unavailable ZINA WISE Attending Unavailable LAURA CHRISTOPHER B Primary Care Unavailab ARLIN Barragan Attending Unavailable MARIANO SANCHEZER B Primary Care Unavailab ARLIN Barragan Referring Unavailable GINA TOMAS Referring Unavailable LAURA, CHRISTOPHER B Primary Care Unavailab le LAURA, CHRISTOPHER B Primary Care Unavailab DUYEN Isidro Attending Unavailable LAURA, MARIANOER B Primary Care Unavailab DEAN Nieto Attending Unavail able MARILYN SANCHEZOPHER B Primary Care Unavailab ZINA Fatima Attending Unavailable ZINA WISE Referring Unavailable LAURA, CHRISTOPHER B Primary Care Unavailab KATHERINE Abreu Attending Unavailabl e EUGENE SANCHEZ B Primary Care Unavailab le MARIANO SANCHEZER B Referring Unavailab le LAURA, CHRISTOPHER B Primary Care Unavailab le GINA TOMAS Referring Unavailable GINA TOMAS Attending Unavailable MARIANO SANCHEZER B Primary Care Unavailab DARÍO Boyer Referring Unavailable LAURA, CHRISTOPHER B Primary Care Unavailab KATHERINE Abreu Attending UnavailLUCÍA Conklin Attending Unavaila ble SELF Referring Unavailable LAURA, MARILYNOPHER B Primary Care Unavailab le ARALEY, CHRISTOPHER B Primary Care Unavailab ARLIN Barragan Attending Unavailable ARLIN MARTINES Referring Unavailable ARALEY, CHRISTOPHER B Primary Care Unavailab le ARALEY, CHRISTOPHER B Primary Care Unavailab DARÍO Boyer Attending Unavailable LAURA, CHRISTOPHER B Primary Care Unavailab GINA Malik Referring Unavailable ARALEY, CHRISTOPHER B Primary Care Unavailab ARLIN Barragan Referring Unavailable ARALEY, CHRISTOPHER B Primary Care Unavailab le LINNEA BRUMFIELD Referring Unavailable ARALEY, CHRISTOPHER B Primary Care Unavailab ZINA Fatima Referring Unavailable BURSLEY, CHRISTOPHER B Primary Care Unavailab GINA Malik Attending Unavailable MARIANO SANCHEZER B Primary Care Unavailab DEAN Nieto Attending Unavail able SYBIL SAMANIEGO Referring Unavailable BURSLEY, CHRISTOPHER B Primary Care Unavailab le ARALEY, CHRISTOPHER B Primary Care Unavailab EDUARDO Potter Attending Unavailable KATHERINE DOWD Attending Unavailabl EUGENE Pavon Primary Care Unavailab KATHERINE Abreu Referring UnavailEUGENE Vega Primary Care Unavailab le SELF Referring Unavailable KENNETHILENE EDUARDO Attending Unavailable EUGENE SANCHEZ Primary Care Unavailab le EUGENE SANCHEZ Primary Care Unavailab le KATHERINE DOWD Referring Unavailabl KATHERINE Fitzgerald Attending Unavailabl e EUGENE SANCHEZ Primary Care Unavailab le PRINCE TINSLEY Referring Unavailable EUGENE SANCHEZ Primary Care Unavailab SYBIL Hatfield Attending Unavailable EUGENE SANCHEZ Primary Care Unavailab ZINA Fatima Referring Unavailable ZINA WISE Attending Unavailable EUGENE SANCHEZ Primary Care Unavailab ZINA Fatima Attending Unavailable EUGENE SANCHEZ Primary Care Unavailab EUGENE Miller Primary Care Unavailab le RADHANAT GINA Referring Unavailable EUGENE SANCHEZ Primary Care Unavailab DEAN Nieto Attending Unavail able Medications Current Medications Medication Drug Class(es) Dates Sig (Normalized) Sig (Original) acetaminophen 500 mg oral tablet (16 sources) Start: 12-25-2024 take 2 tablets by mouth every eight hours as needed acetaminophen (TYLENOL) 500 mg tablet Take 2 tablets by mouth every 8 hours as needed for pain. 12/25/2024 Active acetaminophen 325 mg / HYDROcodone bitartrate 5 mg oral tablet (1 source) Opioid Agonist Start: 02-05-2023 End: 02-12-2023 take 1 tablet by mouth every six hours as needed for pain HYDROcodone-acetam inophen (NORCO) 5-325 mg per tablet Indications: [facility] arthritis Take 1 tablet by mouth every 6 hours as needed for pain for up to 7 days. 28 tablet 0 02/05/2023 02/12/2023 Active Comment on above: Take 1 tablet by gena every 6 hours as needed for pain for up to 7 days. 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 Please do not take until instructed by staff. 2 tablet 0 10/09/2022 11/06/2022 Active Comment on above: Bring to office on t he day of procedure. Please do not take until instructed by staff. ascorbic acid 500 mg oral tablet (20 sources) Vitamin C Start: 12-25-2024 End: 01-05-2025 take 1 tablet by mouth twice daily at mealtime ascorbic acid, vitamin C, (VITAMIN C) 500 mg tablet Take 1 tablet by mouth two times a day with meals for 21 doses. 21 tablet 12/25/2024 Active Start: 2017 take 4 g by mouth once daily A scorbic Acid (Vitamin C) Active 4 GM PO DAILY 2017 2:27pm Start: 04-12-2017 ASCORBIC ACID TABS ASCORBIC ACID TABS [id number] Veronique Quezada Start: 12-16-2015 End: 2017 take 1000 mg by mouth once daily Ascorbic Acid (Vitamin C) Discontinued 1000 MG PO DAILY December 16, 2015 12:00am 2017 2:36pm End: 10-01-2023 take 4000 [IU] by mouth once daily ASCORBIC ACID (VITAMIN C ORAL) Take 4,000 Units by mouth once daily. 0 10/01/2023 Discontinued (Course of therapy completed) take 4000 [IU] by [facility] once daily ASCORBIC ACID (VITAMIN C ORAL) Take 4,000 Units by mouth once daily. 0 Active Comment on above: Take 4,000 Units by mouth once daily. aspirin 81 mg delayed release oral tablet (15 sources) Platelet Aggregation Inhibitor, Nonsteroidal Anti-inflammatory Drug Start: 12-26-19 End: 01-20-20 take 1 tablet by mouth twice daily aspirin, enteric coated (ASPIRIN, ENTERIC COATED) 81 mg EC tablet Take 1 tablet by mouth two times a day for 25 days. 50 tablet 12/25/2024 Active atorvastatin 20 mg oral tablet (20 sources) HMG-CoA Reductase Inhibitor Start: 08-28-19 End: 08-17-19 take 1 tablet by mouth once daily at bedtime atorvastatin (LIPITOR) 20 mg tablet Take 1 tablet by mouth daily at bedtime. 90 tablet 3 08/17/2024 Active Comment on above: Take 1 tablet by gena th daily at bedtime. For cholesterol. Take 20 mg by mouth daily at bedtime. baclofen 2 %, bupivacaine 3 %, diclofenac 1 %, gabapentin 6 % (CPD) (4 sources) Start: 06-12-20 End: 07-12-20 baclofen 2 %, bupivacaine 3 %, diclofenac 1 %, gabapentin 6 % (CPD) Indications: Traumatic arthritis of right knee , Meralgia paresthetica of right side , Chronic pain of right lower extremity Apply 1-3 g to affected area four times daily as needed. Comments for compounding pharmacy: May exchange specified base for similar formulation as needed. 240 g 2 06/12/2022 07/12/2022 Active Comment on above: Apply 1-3 g to affec trell area four times daily as needed. Comments for compounding pharmacy: May exchange specified base for similar formulation as needed. benoxinate hydrochloride 4 mg/ml / fluorescein sodium 3 mg/ml ophthalmic solution (10 sources) Diagnostic Dye Start: 01-18-20 End: 01-18-20 fluorescein-benoxina te 0.3-0.4 % 1 drop (FLURESS) Start: 01-17-2025 End: 01-17-2025 1 drop, BOTH EYES, DIRECT ED, Starting on Wed01/17/25 at 0900, Until Wed01/17/25 at 205, Administer for applanation tonometry. In the event of a Fluress shortage, administer [place]-Fluor 1 drop into both eyes as directed for applanation tonometry, OPHT CLINIC MED ORDERS Start: 09-27-2024 End: 09-27-2024 fluorescein-benoxinate 0.3-0 .4 % 1 Drop (FLURESS) Start: 09-27-2024 End: 09-27-2024 1 Drop, BOTH EYES, DIRECT ED, Starting on Wed09/27/24 at 0930, Until Wed09/27/24 at 2129, Administer for applanation tonometry. In the event of a Fluress shortage, administer [place]-Fluor 1 drop into both eyes as directed for applanation tonometry, OPHT CLINIC MED ORDERS Start: 02-29-2024 End: 02-29-2024 fluorescein-benoxinate 0.3-0 .4 % 1 Drop (FLURESS) Start: 11-02-2023 End: 11-02-2023 fluorescein-benoxinate 0.3-0 .4 % 1 Drop (FLURESS) Start: 04-07-2023 End: 04-07-2023 fluorescein-benoxinate 0.25- 0.4 % 1 Drop (FLURESS) Start: 07-22-2022 End: 07-22-2022 fluorescein-benoxinate 0.25- 0.4 % 1 Drop (FLURESS) Start: 02-10-2022 End: 02-11-2022 fluorescein-benoxinate 0.25- 0.4 % 1 Drop (FLURESS) brexpiprazole 1 mg oral tablet (20 sources) Atypical Antipsychotic Start: 01-25-2025 End: 02-24-2025 take 1 tablet by mouth once daily brexpiprazole (REXULTI) 1 mg tablet Take 1 tablet by mouth once daily. 30 tablet 01/25/2025 02/24/2025 Active Start: 09-20-2024 End: 12-14-2024 take 1 tablet by mouth once daily brexpiprazole (REXULTI) 1 mg tablet Take 1 tablet by mouth once daily. 30 tablet 09/20/2024 12/14/2024 Discontinued Start: 09-05-2024 End: 10-05-2024 take 0.5 mg by mouth once daily brexpiprazole (REXULTI) 1 mg tablet Take 1 tablet by mouth once daily. Start after completing 7 days of the 0.5 mg dose. 30 tablet 09/05/2024 09/26/2024 Discontinued (Course of therapy completed) Start: 05-18-2024 End: 08-27-2024 take 1 tablet by mouth once daily brexpiprazole (REXULTI) 1 mg tablet Take 1 tablet by mouth once daily. 30 tablet 07/28/2024 Active brimonidine tartrate 2 mg/ml ophthalmic solution (12 sources) alpha-Adrenergic Agonist Start: 01-17-2025 take 1 drop(s) into the eye(s) every twelve hours brimonidine (ALPHAGAN) 0.2 % ophthalmic solution Use 1 drop in both eyes every 12 hours. 10 mL 11 01/17/2025 Active Carboxymethylcellulose (20 sources) carboxymethylcel lulose sodium (ARTIFICIAL TEARS, [facility], OPHTHALMIC) Use in eyes. PF PRN OU Suspended carboxymethylcel lulose sodium (ARTIFICIAL TEARS, [facility], OPHTHALMIC) Use in eyes. PF PRN OU Active carboxymethylcel lulose sodium (ARTIFICIAL TEARS, [facility], OPHTHALMIC) Use in eyes. PF PRN OU 0 Active Comment on above: Use in eyes. PF PRN OU cephalexin 500 mg oral capsule (3 sources) Cephalosporin Antibacterial Start: 3 End: take 1 capsule by mouth three times daily cephALEXin (KEFLEX) 500 mg capsule Indications: Neuropathic pain Take 1 capsule by mouth three times daily for 5 days. Please take following procedure for post-operative prophylaxis 15 capsule 0 10/09/2022 10/14/2022 Active Start: 08-12-2022 End: 08-17-2022 take 1 capsule by mouth three times daily cephALEXin (KEFLEX) 500 mg capsule Indications: Meralgia paresthetica of right side Take 1 capsule by mouth three times daily for 5 days. Please take following procedure for post-operative prophylaxis 15 capsule 0 08/12/2022 08/17/2022 Comment on above: Take 1 capsule by [facility] three times daily for 5 days. Please take following procedure for post-operative prophylaxis cholecalciferol 1.25 mg oral capsule (20 sources) Vitamin D Start: 08-17-19 End: 12-20-19 take 1 capsule by mouth every week cholecalciferol, Vitamin D3, (VITAMIN D3) 1,250 mcg (50,000 unit) cap capsule Indications: Vitamin D deficiency Take 1 capsule by mouth one time a week. 12 capsule 09/20/2024 Active Start: 2017 take 1000 [IU] by mo ut once daily Cholecalciferol (Vitamin D3) Active 1000 UNIT PO DAILY 2017 2:28pm Start: 04-12-2017 VITAMIN D3 500 0 UNIT CAPS CHOLECALCIFEROL [id number] Veronique Quezada Start: 12-16-2015 End: 2017 take 4000 [IU] by mouth once daily Cholecalciferol (Vitamin D3) Discontinued 4000 UNITS PO DAILY December 16, 2015 12:00am 2017 2:36pm End: 08-17-2024 take 1 tablet by mouth once daily cholecalciferol (VITAMIN D3) 50 mcg (2,000 unit) tablet Take 2,000 Units by mouth once daily. 08/17/2024 Discontinued (Course of therapy completed) Comment on above: Take 2,000 Units by mouth once daily. cyclobenzaprine hydrochloride 10 mg oral tablet (20 sources) Muscle Relaxant Start: 02-14-20 End: 08-21-19 take 1 tablet by mouth three times daily as needed for muscle spasms cyclobenzaprine (FLEXERIL) 10 mg tablet Indications: muscle spasm Take 1 tablet by mouth three times a day as needed for muscle spasm. 270 tablet 1 02/22/2025 08/21/2025 Active Start: 08-23-2021 take 10 mg by mouth three times daily Cyclobenzaprine Active 10 MG PO THREE TIMES A DAY August 23, 2021 1:00am Start: 08-23-2021 End: 02-13-2022 take 1 tablet by mouth three times daily as needed for muscle spasms cyclobenzaprine (FLEXERIL) 5 mg tablet Indications: Pain in right femur Take 1 tablet by mouth three times daily as needed for muscle spasm. 90 tablet 2 12/04/2021 02/13/2022 Discontinued Comment on above: Take 1 tablet by gena th three times daily as needed for muscle spasm. Take 1 tablet by gena th three times a day as needed for muscle spasm. twice-daily diclofenac epolamine 0.013 mg/mg medicated patch (20 sources) Nonsteroidal Anti-inflammatory Drug Start: apply 180 mg topically twice daily Diclofenac Epolamine Active 180 MG TOPICAL TWICE A DAY April 19, 2023 12:00am Start: 02-02-2023 End: 05-03-2023 apply 1 dose topically twice daily, then apply 1 dose topically twice daily diclofenac (FLECTOR) 1.3 % topical patch Indications: Traumatic arthritis of right knee Apply 1 Patch as directed twice daily. Apply 1 patch to most painful area 2 times a day 60 Patch 2 02/02/2023 04/29/2023 Discontinued Comment on above: Apply 1 Patch as dir ected twice daily. Apply 1 patch to most painful area 2 times a day docusate sodium 100 mg oral capsule (7 sources) Start: 12-25-2024 End: 01-24-2025 take 1 capsule by mouth twice daily docusate sodium (COLACE) 100 mg capsule Take 1 capsule by mouth two times a day. 60 capsule 12/25/2024 01/24/2025 Active dorzolamide 20 mg/ml / timolol 5 mg/ml ophthalmic solution (20 sources) Carbonic Anhydrase Inhibitor, beta-Adrenergic Víctor Start: 08-28-2024 take 1 drop(s) into the eye(s) every twelve hours dorzolamide-timolol (COSOPT) 22.3-6.8 mg/mL ophthalmic solution Use 1 Drop in both eyes every 12 hours. 30 mL 3 08/28/2024 Active Start: 08-03-2023 End: 08-25-2024 take 1 drop(s) into the eye(s) every twelve hours dorzolamide-timolol (COSOPT) 22.3-6.8 mg/mL ophthalmic solution Use 1 Drop in both eyes every 12 hours. 30 mL 3 08/28/2024 Active Comment on above: Use 1 Drop in both e yes every 12 hours. doxycycline hyclate 100 mg oral capsule (9 sources) Tetracycline-class Drug Start: 5 End: 5 take 1 capsule by mouth twice daily doxycycline hyclate (VIBRAMYCIN) 100 mg capsule Take 1 capsule by mouth two times a day. 84 capsule 12/25/2024 02/05/2025 Active etodolac 400 mg oral tablet (20 sources) Nonsteroidal Anti-inflammatory Drug Start: 2 End: 3 take 1 tablet by mouth twice daily as needed etodolac (LODINE) 400 mg tablet Indications: Traumatic arthritis of right knee Take 1 tablet by mouth twice daily as needed. 60 tablet 2 07/17/2022 10/15/2022 Active Start: 02-23-2022 End: 05-29-2022 take 1 tablet by mouth twice daily etodolac (LODINE) 400 mg tablet Indications: Dislocation of carpometacarpal joint of left hand, initial encounter Take 1 tablet by mouth twice daily. 60 tablet 2 02/23/2022 05/29/2022 Discontinued Comment on above: Take 1 tablet by gena th twice daily. Take 1 tablet by gena th twice daily as needed. ferrous sulfate 325 mg oral tablet (20 sources) Start: 11-20-2024 End: 12-14-2024 take 1 tablet by mouth twice daily at mealtime ferrous sulfate 325 mg (65 mg iron) tablet Indications: Normocytic anemia Take 1 tablet by mouth two times a day with meals. 90 tablet 12/15/2024 Active Start: 01-19-2024 End: 11-17-2024 take 1 tablet by mouth twice daily at mealtime ferrous sulfate 325 mg (65 mg iron) tablet Indications: Normocytic anemia Take 1 tablet by mouth two times a day with meals. 90 tablet 08/17/2024 11/17/2024 Discontinued Start: 2017 take 1 tablet by gena th once daily Ferrous Sulfate (Feosol) 325 mg (65 mg iron) tablet Active 325 MG PO daily 2017 12:00am take 330 mg by mouth every other day ferrous sulfate (IRON ORAL) Take 330 mg by mouth every other day. 0 Active Comment on above: Take 330 mg by mouth every other day. folic acid/multivit-min/lutein (CENTRUM SILVER ORAL) (20 sources) folic acid/multi vit-min/lutein (CENTRUM SILVER ORAL) Indications: Chronic migraine without aura without status migrainosus, not intractable Take by mouth. Suspended folic acid/multi vit-min/lutein (CENTRUM SILVER ORAL) Indications: Chronic migraine without aura without status migrainosus, not intractable Take by mouth. Active folic acid/multi vit-min/lutein (CENTRUM SILVER ORAL) Indications: Chronic migraine without aura without status migrainosus, not intractable Take by mouth. 0 Active Comment on above: Take by mouth. gabapentin 400 mg oral capsule (20 sources) Anti-epileptic Agent Start: 02-22-2025 End: 05-23-2025 take 1 tablet by mouth three times daily gabapentin 400 mg tab Indications: neuropathic pain Take 400 mg by mouth three times a day for 90 days. 90 tablet 2 02/22/2025 05/23/2025 Active Start: 09-16-2022 End: 03-27-2025 take 1 tablet by mouth three times daily gabapentin (NEURONTIN) 600 mg tablet Indications: neuropathic pain Take 1 tablet by mouth three times a day for 180 days. 270 tablet 1 09/28/2024 02/22/2025 Discontinued Start: 08-23-2021 End: 05-01-2022 gabapentin (NEURONTIN) 300 m g capsule Indications: Pain in right femur Take 1 tab (300 mg) in the AM, take 1 tab (300 mg) in the afternoon, and take 2 tabs (600 mg) at bedtime 360 capsule 1 10/29/2021 02/13/2022 Discontinued Start: 08-23-2021 End: 08-12-2022 gabapentin (NEURONTIN) 600 m g tablet Indications: neuropathic pain Take 1 pill 3 times per day 90 tablet 5 02/13/2022 Active Comment on above: Take 1 tab (300 mg) in the AM, take 1 tab (300 mg) in the afternoon, and take 2 tabs (600 mg) at bedtime Take 1 pill 3 times per day [facility]. [facility]. [facility] 180 [facility]. hydrOXYzine pamoate 50 mg oral capsule (20 sources) Antihistamine Start: 2 End: 3 take 1 capsule by mouth every eight hours as needed hydrOXYzine pamoate (VISTARIL) 50 mg capsule Take 1 capsule by mouth three times daily as needed. 90 capsule 0 08/14/2022 09/13/2022 Active Start: 08-23-2021 take 50 mg by mouth three times daily Hydroxyzine Pamoate Active 50 MG PO THREE TIMES A DAY August 23, 2021 1:00am Comment on above: Take 1 capsule by mo [facility] three times daily as needed. latanoprost 0.05 mg/ml ophthalmic solution (20 sources) Prostaglandin Analog Start: take 1 drop(s) into the eye(s) once daily latanoprost (XALATAN) 0.005 % ophthalmic solution Use 1 Drop in both eyes once daily. 10 mL 3 08/28/2024 Active Start: 11-27-2021 End: 12-02-2022 take 1 drop(s) into the eye(s) once daily latanoprost (XALATAN) 0.005 % ophthalmic solution Use 1 Drop in both eyes once daily. 2.5 mL 11 12/02/2022 Active Start: 10-15-2021 take 1 drop(s) into the eye(s) once daily at bedtime latanoprost (XALATAN) 0.005 % ophthalmic solution Use 1 Drop in both eyes daily at bedtime. 2.5 mL 11 10/15/2021 Active Start: 04-12-2017 XALATAN 0.005 % SOLN LATANOPROST [id number] Veronique Quezada Start: 12-16-2015 End: 08-25-2024 take 1 drop(s) into the eye(s) once daily latanoprost (XALATAN) 0.005 % ophthalmic solution Use 1 Drop in both eyes once daily. 10 mL 3 08/03/2023 08/25/2024 Discontinued Comment on above: Use 1 Drop in both e yes daily at bedtime. Use 1 Drop in the le ft eye daily at bedtime. Use 1 Drop in both e yes once daily. levothyroxine sodium 0.05 mg oral tablet (20 sources) l-Thyroxine Start: take 1 tablet by mouth once daily levothyroxine (SYNTHROID) 50 mcg tablet Take 1 tablet by mouth once daily. 90 tablet 1 11/20/2024 Active Start: 11-30-2022 End: 11-17-2024 take 1 tablet by mouth once daily levothyroxine (SYNTHROID) 50 mcg tablet Take 1 tablet by mouth once daily. 90 tablet 1 03/28/2024 11/17/2024 Discontinued Start: 07-24-2013 End: 11-27-2022 take 1 tablet by mouth once daily levothyroxine (SYNTHROID) 50 mcg tablet Take 1 tablet by mouth once daily. 90 tablet 1 06/01/2022 11/27/2022 Discontinued Start: 07-03-2013 LEVOTHYROXINE SODIUM TABS As Directed LEVOTHYROXINE SODIUM TABS [id number] Mindy Encinas Comment on above: Take 1 tablet by gena th once daily. lisinopril 10 mg oral tablet (2 sources) Angiotensin Converting Enzyme Inhibitor Start: take 10 mg by mouth once daily Lisinopril Active 10 MG PO DAILY July 26, 2019 1:00am loratadine 10 mg oral capsule (2 sources) Start: 2 take 10 mg by mouth once daily Loratadine Active 10 MG PO DAILY August 23, 2021 1:00am LORazepam 0.5 mg oral tablet (20 sources) Benzodiazepine Start: End: take 1 tablet by mouth twice daily as needed LORazepam (ATIVAN) 0.5 mg Indications: Primary insomnia , Panic disorder with agoraphobia Take 1 tablet by mouth two times a day as needed for up to 90 days. 60 tablet 2 02/13/2025 05/14/2025 Active Start: 12-11-2024 End: 01-10-2025 take 1 tablet by mouth twice daily as needed LORazepam (ATIVAN) 0.5 mg Indications: Primary insomnia , Panic disorder with agoraphobia Take 1 tablet by mouth two times a day as needed for up to 30 days. Okay to refill early due to patient leaving for vacation. 40 tablet 12/11/2024 01/10/2025 Active Start: 09-04-2024 End: 10-26-2024 take 1 tablet by mouth twice daily as needed LORazepam (ATIVAN) 0.5 mg Indications: Primary insomnia , Panic disorder with agoraphobia Take 1 tablet by mouth two times a day as needed for up to 30 days. Okay to refill early due to patient leaving for vacation. 40 tablet 09/26/2024 10/26/2024 Active Start: 05-18-2024 End: 08-20-2024 take 1 tablet by mouth twice daily as needed LORazepam (ATIVAN) 0.5 mg Indications: Primary insomnia , Panic disorder with agoraphobia Take 1 tablet by mouth two times a day as needed for up to 30 days. 40 tablet 2 07/21/2024 08/20/2024 Start: 02-14-2024 End: 05-14-2024 take 1 tablet by mouth twice daily as needed LORazepam (ATIVAN) 0.5 mg Indications: Primary insomnia , Panic disorder with agoraphobia Take 1 tablet by mouth two times a day as needed for up to 90 days. 28 tablet 2 02/14/2024 05/14/2024 Active Start: 12-13-2023 End: 01-12-2024 take 1 tablet by mouth twice daily as needed LORazepam (ATIVAN) 0.5 mg Indications: Panic disorder with agoraphobia , Primary insomnia Take 1 tablet by mouth two times a day as needed for up to 30 days. 30 tablet 1 12/13/2023 01/12/2024 Active Start: 10-07-2023 End: 11-11-2023 take 1 tablet by mouth twice daily as needed LORazepam (ATIVAN) 0.5 mg Indications: Panic disorder with agoraphobia , Primary insomnia Take 1 tablet by mouth two times a day as needed for up to 35 days. 35 tablet 1 10/07/2023 11/11/2023 Active Start: 07-21-2023 End: 09-22-2023 take 1 tablet by mouth twice daily as needed LORazepam (ATIVAN) 0.5 mg Indications: Panic disorder with agoraphobia , Primary insomnia Take 1 tablet by mouth two times a day as needed for up to 40 days. 40 tablet 1 08/13/2023 09/22/2023 Active Start: 08-21-2022 End: 07-15-2023 take 1 tablet by mouth twice daily as needed LORazepam (ATIVAN) 0.5 mg Indications: Primary insomnia , Panic disorder with agoraphobia Take 1 tablet by mouth two times a day as needed for up to 30 days. 50 tablet 0 06/15/2023 07/15/2023 Active Start: 02-02-2022 End: 08-18-2022 LORazepam (ATIVAN) 0.5 mg Indications: Primary insomnia , Panic disorder with agoraphobia Take 1 tablet by mouth twice daily as needed for up to 180 days. For up to 30 days 60 tablet 5 02/09/2022 08/18/2022 Discontinued Start: 08-23-2021 End: 02-13-2022 LORazepam (ATIVAN) 0.5 mg Indications: Primary insomnia , Panic disorder with agoraphobia Take 1 tablet by mouth once daily as needed for up to 30 days. For up to 30 days 30 tablet 2 01/14/2022 02/02/2022 Discontinued Start: 12-16-2015 End: 07-26-2019 take 0.5 mg by mouth once daily Lorazepam Discontinued 0.5 MG PO DAILY December 16, 2015 12:00am July 26, 2019 11:34am Comment on above: Take 1 tablet by gena th once daily as needed for up to 30 days. For up to 30 days Take 1 tablet by gena th twice daily as needed for up to 30 days. For up to 30 days Take 1 tablet by gena th twice daily as needed for up to 180 days. For up to 30 days Take 1 tablet by gena th twice daily as needed for up to 180 days. For up to 30 days Do not start before August 21, 2022. Take 1 tablet by gena th twice daily as needed for up to 30 days. For up to 30 days Do not start before March 04, 2023. Take 1 tablet by gena th twice daily as needed for up to 30 days. For up to 30 days Do not start before April 05, 2023. Take 1 tablet by gena th two times a day as needed for up to 30 days. Take 1 tablet by egna th two times a day as needed for up to 40 days. Take 1 tablet by gena th two times a day as needed for up to 35 days. metFORMIN hydrochloride 500 mg oral tablet (20 sources) Biguanide Start: 4 End: 5 take 1 tablet by mouth once daily at breakfast metFORMIN (GLUCOPHAGE) 500 mg tablet Indications: Prediabetes Take 1 tablet by mouth daily with breakfast. 90 tablet 1 12/15/2024 06/13/2025 Active Start: 07-15-2021 End: 06-23-2023 take 1 tablet by mouth once daily at breakfast metFORMIN (GLUCOPHAGE) 500 mg tablet Indications: Prediabetes Take 1 tablet by mouth daily with breakfast. 30 tablet 11 06/23/2023 Active Comment on above: Take 1 tablet by gena daily with breakfast. ofloxacin 3 mg/ml ophthalmic solution (20 sources) Quinolone Antimicrobial Start: 2 End: 2 take 1 drop(s) into the eye(s) four times daily ofloxacin (OCUFLOX) 0.3 % ophthalmic solution Use 1 Drop in the right eye four times daily. For use AFTER surgery 5 mL 0 10/15/2021 01/13/2022 Active Comment on above: Use 1 Drop in the ri ght eye four times daily. For use AFTER surgery ondansetron 4 mg oral tablet (20 sources) Serotonin-3 Receptor Antagonist Start: 09-04-202 3 take 4 mg by mouth once daily Ondansetron Active 4 MG PO DAILY April 19, 2023 12:00am Start: 04-09-2023 End: 10-02-2024 take 1 tablet by mouth every eight hours as needed for nausea ondansetron (ZOFRAN) 4 mg tablet Indications: Chronic migraine without aura without status migrainosus, not intractable Take 1 tablet by mouth every 8 hours as needed for nausea/vomiting. 30 tablet 11 10/02/2024 Active Comment on above: Take 1 tablet by gena th every 8 hours as needed for nausea/vomiting. oxyCODONE hydrochloride 5 mg oral tablet (6 sources) Opioid Agonist Start: 02-14-20 End: 02-21-20 take 1 tablet by mouth every six hours as needed oxyCODONE IR (ROXICODONE) 5 mg immediate release tablet Indications: Status post right knee replacement Take 1-2 tablets by mouth every 6 hours as needed for pain for up to 7 days. 50 tablet 02/13/2025 02/20/2025 Active Start: 01-11-2025 End: 01-18-2025 take 1 tablet by mouth every six hours as needed oxyCODONE IR (ROXICODONE) 5 mg immediate release tablet Indications: Status post right knee replacement Take 1-2 tablets by mouth every 6 hours as needed for pain for up to 7 days. 50 tablet 01/11/2025 01/18/2025 Active Start: 12-25-2024 End: 01-01-2025 take 5-10 mg by mouth every six hours as needed oxyCODONE IR (ROXICODONE) 5 mg immediate release tablet Take 1-2 tablets by mouth every 6 hours as needed for pain for up to 7 days. 12/25/2024 01/01/2025 Active pantoprazole 40 mg delayed release oral tablet (20 sources) Proton Pump Inhibitor Start: 11-30-2022 End: 12-14-2024 take 1 tablet by mouth twice daily pantoprazole DR (PROTONIX) 40 mg tablet Indications: PUD (peptic ulcer disease) Take 1 tablet by mouth two times a day. 180 tablet 1 12/15/2024 Active Start: 04-12-2017 take 1 tablet by gena twice daily PROTONIX 40 MG PACK One tablet by mouth twice daily PANTOPRAZOLE SODIUM [id number] Veronique Quezada Start: 07-24-2013 End: 11-27-2022 take 1 tablet by mouth twice daily pantoprazole DR (PROTONIX) 40 mg tablet Indications: PUD (peptic ulcer disease) Take 1 tablet by mouth twice daily. 180 tablet 1 11/30/2022 Active Comment on above: Take 1 tablet by gean th twice daily. Take 1 tablet by gena th two times a day. polyethylene glycol 3350 04766 mg powder for oral solution (1 source) Osmotic Laxative Start: 12-26-19 End: 01-05-20 polyethylene glycol 3350 (MIRALAX) 17 gram/dose powder Take 17 g by mouth once daily as needed for constipation for up to 10 days. Dissolve dose in 4 - 8 ounces of liquid and take as directed. 170 g 12/25/2024 01/04/2025 Active polymyxin b 11196 unt/ml / trimethoprim 1 mg/ml ophthalmic solution (1 source) Dihydrofolate Reductase Inhibitor Antibacterial, Polymyxin-class Antibacterial Start: 10-31-19 End: 11-07-19 take 1 drop(s) into the eye(s) every four hours polymyxin B-trimethoprim (POLYTRIM) 10,000 unit- 1 mg/mL ophthalmic solution Indications: Bacterial conjunctivitis Use 1 Drop in the left eye every 4 hours for 7 days. 10 mL 10/30/2024 11/06/2024 Active predniSONE 10 mg oral tablet (7 sources) Start: 07-19-20 End: 07-28-20 predniSONE (DELTASONE) 10 mg tablet Indications: Lip swelling Take 4 tabs daily for 3 days, then 2 tabs daily for 3 days, then 1 tab daily for 3 days with food. 21 tablet 0 07/19/2023 07/28/2023 Active Comment on above: Take 4 tabs daily fo r 3 days, then 2 tabs daily for 3 days, then 1 tab daily for 3 days with food. proparacaine hydrochloride 5 mg/ml ophthalmic solution (4 sources) Local Anesthetic Start: 02-29-20 End: 02-29-20 proparacaine 0.5 % 1 Drop (ALCAINE) Start: 11-02-2023 End: 11-02-2023 proparacaine 0.5 % 1 Drop (A LCAINE) Start: 08-03-2023 End: 08-03-2023 proparacaine 0.5 % 1 Drop (A LCAINE) Start: 02-10-2022 End: 02-11-2022 proparacaine 0.5 % 1 Drop (A LCAINE) rizatriptan 10 mg oral tablet (20 sources) Serotonin-1b and Serotonin-1d Receptor Agonist Start: 01-26-2024 End: 03-31-2025 rizatriptan (MAXALT) 10 mg tablet Indications: Chronic migraine without aura without status migrainosus, not intractable Take 1 tablet (10 mg) by mouth as needed. FOR MIGRAINE HEADACHE (SEE ADMINISTRATION INSTRUCTIONS). Can repeat one time in 2 hours if needed. No more than 2 doses in 24 hours. Max 9 days a month. 36 tablets is a 90 day supply 36 tablet 3 10/02/2024 03/31/2025 Active Start: 09-14-2022 End: 07-20-2023 rizatriptan (MAXALT) 10 mg t ablet Indications: Chronic migraine without aura without status migrainosus, not intractable Take 1 tablet by mouth as needed. FOR MIGRAINE HEADACHE (SEE ADMINISTRATION INSTRUCTIONS). Can repeat one time in 2 hours if needed. No more than 2 doses in 24 hours. Max 9 days a month. 36 tablets is a 90 day supply 36 tablet 3 01/21/2023 Active Start: 07-24-2021 End: 05-30-2022 rizatriptan (MAXALT) 10 mg t ablet Indications: Chronic migraine without aura without status migrainosus, not intractable Take 1 tablet by mouth as needed. FOR MIGRAINE HEADACHE (SEE ADMINISTRATION INSTRUCTIONS) 27 tablet 2 12/01/2021 Active Start: 05-15-2018 End: 07-25-2019 Rizatriptan Discontinued 10 MG PO .X1 PRN May 15, 2018 12:00am July 25, 2019 9:33pm Start: 04-12-2017 take 1 tablet by gena th once daily as needed MAXALT 10 MG TABS One tablet by mouth daily PRN for migraine RIZATRIPTAN BENZOATE [id number] Veronique Quezada Start: 12-16-2015 take 10 mg by mouth once daily as needed Rizatriptan Active 10 MG PO DAILY NEEDED December 16, 2015 12:00am Comment on above: Take 1 tablet by gena th as needed. FOR MIGRAINE HEADACHE (SEE ADMINISTRATION INSTRUCTIONS) Take 1 tablet by gena th as needed. FOR MIGRAINE HEADACHE (SEE ADMINISTRATION INSTRUCTIONS). Can repeat one time in 2 hours if needed. No more than 2 doses in 24 hours. Max 9 days a month. 36 tablets is a 90 day supply topiramate 100 mg oral tablet (20 sources) Start: End: take 1 tablet by mouth once daily, then take 3 tablets by mouth once daily at bedtime topiramate (TOPAMAX) 100 mg tablet Indications: Chronic migraine without aura without status migrainosus, not intractable Take 1 tablet by mouth once daily AND 3 tablets daily at bedtime. 360 tablet 02/22/2025 05/23/2025 Active Start: 09-22-2022 End: 10-02-2023 take 3 tablets by mouth once daily at bedtime topiramate (TOPAMAX) 100 mg tablet Indications: Intractable 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 Take 3 tablets by mouth daily at bedtime. 270 tablet 1 04/05/2023 06/02/2023 Discontinued Start: 03-17-2022 End: 01-13-2023 take 2.5 tablets by mouth once daily at bedtime topiramate (TOPAMAX) 100 mg tablet Indications: Intractable 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 Take 2.5 tablets by mouth daily at bedtime. 75 tablet 5 07/17/2022 09/22/2022 Discontinued Start: 12-31-2021 End: 06-29-2022 take 2 tablets by mouth once daily at bedtime topiramate (TOPAMAX) 100 mg tablet Indications: Intractable 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 , Chronic daily headache Take 2 tablets by mouth daily at bedtime. 60 tablet 5 12/31/2021 03/17/2022 Discontinued Start: 08-23-2021 End: 05-03-2022 take 100 mg by mouth at bedtime Topiramate Active 100 MG PO AT BEDTIME August 23, 2021 1:00am Start: 04-12-2017 take 1 tablet by gena th twice daily TOPAMAX 50 MG TABS One tablet by mouth twice daily TOPIRAMATE [id number] Veronique Quezada Start: 07-24-2013 End: 07-26-2019 take 100 mg by mouth at bedtime Topiramate Discontinue d 100 MG PO AT BEDTIME July 24, 2013 1:00am July 26, 2019 11:34am Comment on above: Take 1 tablet by gena th daily at bedtime. Take 2 tablets by mo ut daily at bedtime. Take 2.5 tablets by mouth daily at bedtime. Take 3 tablets by mo ut daily at bedtime. Take 1 tablet by gena th once daily AND 3 tablets daily at bedtime. traZODone hydrochloride 150 mg oral tablet (6 sources) Serotonin Reuptake Inhibitor Start: 02-14-20 End: 05-14-20 take 1 tablet by mouth once daily at bedtime traZODone (DESYREL) 150 mg tablet Take 1 tablet by mouth daily at bedtime. 90 tablet 02/13/2025 05/14/2025 Active venlafaxine 75 mg oral tablet (20 sources) Serotonin and Norepinephrine Reuptake Inhibitor Start: 10-20-19 End: 03-15-20 take 1.5 tablets by mouth once daily at breakfast, then take 1.5 tablets by mouth once daily at lunch, then take 1 tablet by mouth once daily at dinner venlafaxine (EFFEXOR) 75 mg tablet Take 1.5 tablets by mouth daily with breakfast AND 1.5 tablets daily with lunch AND 1 tablet daily with dinner. 120 tablet 1 02/13/2025 03/15/2025 Active Start: 08-23-2021 End: 01-05-2024 take 1 tablet by mouth three times daily at mealtime venlafaxine (EFFEXOR) 75 mg tablet Take 1 tablet by mouth three times a day with meals. 270 tablet 0 10/07/2023 01/05/2024 Active Comment on above: Take 1 tablet by gena th three times daily with meals. Take 1 tablet by gena th three times daily with meals for 90 doses. Take 1 tablet by gena th three times a day with meals. Take 1.5 tablets by mouth daily with breakfast AND 1.5 tablets daily with lunch AND 1 tablet daily with dinner. vitamin b12 1 mg/ml injectable solution (20 sources) Vitamin B12 Start: 08-28-19 inject 1 mL by intramuscular injection every month cyanocobalamin 1,000 mcg/mL Inject 1 mL intramuscularly once every month. 1 mL 5 08/28/2024 Active Start: 11-30-2022 End: 08-25-2024 inject 1 mL by intramuscular injection every month cyanocobalamin 1,000 mcg/mL Inject 1 mL intramuscularly once every month. 1 mL 5 01/19/2024 08/25/2024 Discontinued Start: 06-01-2022 End: 11-27-2022 inject 1 mL by intramuscular injection every month cyanocobalamin 1,000 mcg/mL Inject 1 mL intramuscularly once every month. 1 mL 5 06/01/2022 11/27/2022 Discontinued Start: 03-21-2021 End: 05-29-2022 inject 1 mL by intramuscular injection every month cyanocobalamin 1,000 mcg/mL Inject 1 mL intramuscularly once every month. 1 mL 5 12/01/2021 05/29/2022 Discontinued Start: 07-26-2019 inject 100 ug by int ramuscular injection every month Cyanocobalamin (Vitamin B-12) Active 100 MCG IM EVERY MONTH July 26, 2019 1:00am Start: 07-24-2013 End: 07-26-2019 inject 1000 ug by intramuscular injection every month Cyanocobalamin (Vitamin B-12) Discontinued 1000 MCG IM EVERY MONTH July 24, 2013 1:00am July 26, 2019 11:32am Comment on above: Inject 1 mL intramus cularly once every month. Completed/Discontinued Medications Medication Drug Class(es) Dates Sig (Normalized) Sig (Original) amLODIPine 5 mg oral tablet (20 sources) Dihydropyridine Calcium Channel Víctor Start: 07-24-2021 End: 06-08-2023 take 1 tablet by mouth once daily amLODIPine (NORVASC) 5 mg tablet Indications: Essential hypertension Take 1 tablet by mouth once daily. 90 tablet 1 03/03/2022 06/08/2023 Discontinued Comment on above: Take 1 tablet by gena th once daily. ARIPiprazole 5 mg oral tablet (20 sources) Atypical Antipsychotic Start: 01-14-2022 End: 02-13-2022 take 1 tablet by mouth once daily ARIPiprazole (ABILIFY) 5 mg tablet Take 1 tablet by mouth once daily. 30 tablet 1 01/14/2022 02/09/2022 Discontinued (Side Effects) Start: 11-17-2021 End: 03-31-2022 take 1 tablet by mouth once daily ARIPiprazole (ABILIFY) 2 mg tablet Take 1 tablet by mouth once daily. 90 tablet 0 12/31/2021 01/14/2022 Discontinued Comment on above: Take 1 tablet by gena once daily. baclofen 2 %, bupivacaine 1 %, diclofenac 1 %, gabapentin 10 % (CPD) (20 sources) Start: 02-02-2023 baclofen 2 %, bupivacaine 1 %, diclofenac 1 %, gabapentin 10 % (CPD) Indications: Traumatic arthritis of right knee Comments for compounding pharmacy: Apply 1-3 grams (pumps) to the affected area 3-4 times daily. May make substitutions as needed. 240 g 5 02/02/2023 Active Comment on above: Comments for compoun ding pharmacy: Apply 1-3 grams (pumps) to the affected area 3-4 times daily. May make substitutions as needed. baclofen 2 %, bupivacaine 1 %, diclofenac 1 %, gabapentin 6 % (CPD) (20 sources) Start: 02-26-2022 End: 02-02-2023 baclofen 2 %, bupivacaine 1 %, diclofenac 1 %, gabapentin 6 % (CPD) Indications: Traumatic arthritis of right knee Comments for compounding pharmacy: Apply 1-3 grams (pumps) to the affected area 3-4 times daily. May make substitutions as needed. 240 g 5 02/26/2022 02/02/2023 Discontinued Start: 02-26-2022 baclofen 2 %, bupivacaine 1 %, diclofenac 1 %, gabapentin 6 % (CPD) Indications: Traumatic arthritis of right knee Comments for compounding pharmacy: Apply 1-3 grams (pumps) to the affected area 3-4 times daily. May make substitutions as needed. 240 g 5 02/26/2022 Active Start: 02-26-2022 End: 02-26-2022 baclofen 2 %, bupivacaine 1 %, diclofenac 1 %, gabapentin 6 % (CPD) Indications: Traumatic arthritis of right knee Comments for compounding pharmacy: Apply 1-3 grams (pumps) to the affected area 3-4 times daily. May make substitutions as needed. 240 g 5 02/26/2022 02/26/2022 Discontinued Start: 02-19-2022 End: 02-26-2022 baclofen 2 %, bupivacaine 1 %, diclofenac 1 %, gabapentin 6 % (CPD) Indications: Traumatic arthritis of right knee Comments for compounding pharmacy: Apply 1-3 grams (pumps) to the affected area 3-4 times daily. May make substitutions as needed. 240 g 5 02/19/2022 02/26/2022 Discontinued Start: 02-19-2022 baclofen 2 %, bupivacaine 1 %, diclofenac 1 %, gabapentin 6 % (CPD) Indications: Traumatic arthritis of right knee Comments for compounding pharmacy: Apply 1-3 grams (pumps) to the affected area 3-4 times daily. May make substitutions as needed. 240 g 5 02/19/2022 Active Comment on above: Comments for compoun [facility] pharmacy: Apply 1-3 grams (pumps) to the affected area 3-4 times daily. May make substitutions as needed. baclofen, bupivacaine, diclofenac, gabapentin (CPD) (2 sources) Start: 02-13-2022 baclofen, bupivacaine, diclofenac, gabapentin (CPD) Indications: Traumatic arthritis of right knee Comments for compounding pharmacy: Apply 1-3 grams (pumps) to the affected area 3-4 times daily. May make substitutions as needed. 240 g 5 02/13/2022 Active Comment on above: Comments for [facility] pharmacy: Apply 1-3 grams (pumps) to the affected area 3-4 times daily. May make substitutions as needed. onabotulinumtoxina 200 unt injection (20 sources) Acetylcholine Release Inhibitor Start: 05-13-2021 End: 01-22-2022 onabotulinum toxin type A 200 Units injection (BOTOX) brexpiprazole (REXULTI) 0.5 mg (7)- 1 mg (7) tablets in a dose pack (2 sources) Start: 09-05-2024 End: 09-20-2024 brexpiprazole (REXULTI) 0.5 mg (7)- 1 mg (7) tablets in a dose pack Take ONE 0.5 mg tablet daily for 7 days. Then take ONE 1 mg tablet daily for 7 days. 14 tablet 09/05/2024 09/20/2024 Discontinued (Course of therapy completed) Start: 09-05-2024 End: 09-19-2024 brexpiprazole (REXULTI) 0.5 mg (7)- 1 mg (7) tablets in a dose pack Take ONE 0.5 mg tablet daily for 7 days. Then take ONE 1 mg tablet daily for 7 days. 14 tablet 09/05/2024 09/19/2024 Active 30 ml bupivacaine hydrochloride 5 mg/ml injection (16 sources) Amide Local Anesthetic Start: 08-17-2024 End: 08-17-2024 BUPivacaine (PF) 0.5 % (5 mg/mL) 2.5 mg injection Start: 08-11-2024 End: 08-11-2024 BUPivacaine (PF) 0.5 % (5 mg /mL) 5 mg injection Start: 08-11-2024 End: 08-11-2024 5 mg, OTHER, ONCE, 1 dose, O n Wed08/11/24 at 1200 Start: 07-24-2024 End: 07-24-2024 bupivacaine(PF) 0.75 % (7.5 mg/mL) 7.5 mg injection (MARCAINE PF) Start: 07-24-2024 End: 07-24-2024 7.5 mg, OTHER, ONCE, 1 dose, On Wed07/24/24 at 0800 Start: 07-03-2024 End: 07-03-2024 bupivacaine(PF) 0.75 % (7.5 mg/mL) 7.5 mg injection (MARCAINE PF) Start: 07-03-2024 End: 07-03-2024 7.5 mg, OTHER, ONCE, 1 dose, On Wed07/03/24 at 0900 Start: 03-13-2024 End: 03-13-2024 BUPivacaine (PF) 0.5 % (5 mg /mL) 2.5 mg injection Start: 10-01-2023 End: 10-01-2023 BUPivacaine (PF) 0.5 % (5 mg /mL) 2.5 mg injection Start: 07-01-2022 End: 07-01-2022 bupivacaine (PF) 0.5 % (5 mg /mL) 15 mg injection Start: 03-11-2022 End: 03-11-2022 bupivacaine (PF) 0.5 % (5 mg /mL) 5 mg injection Start: 11-12-2021 End: 11-12-2021 bupivacaine (PF) 0.5 % (5 mg /mL) 5 mg injection busPIRone hydrochloride 15 mg oral tablet (20 sources) Start: 01-18-2025 End: 02-13-2025 take 1 tablet by mouth three times daily busPIRone (BUSPAR) 15 mg tablet Take 1 tablet by mouth three times a day. 90 tablet 2 01/18/2025 02/13/2025 Discontinued (Discontinued by another Health Care Provider) Start: 07-20-2023 End: 10-19-2024 take 1 tablet by mouth three times daily busPIRone (BUSPAR) 15 mg tablet Take 1 tablet by mouth three times a day. 90 tablet 2 07/21/2024 10/19/2024 Active Start: 06-15-2023 End: 08-14-2023 take 1 tablet by mouth three times daily busPIRone (BUSPAR) 10 mg tablet Take 1 tablet by mouth three times a day. 90 tablet 1 06/15/2023 07/20/2023 Discontinued Start: 05-18-2023 End: 06-17-2023 take 1 tablet by mouth three times daily busPIRone (BUSPAR) 5 mg tablet Take 1 tablet by mouth three times a day. 90 tablet 0 05/18/2023 06/15/2023 Discontinued Comment on above: Take 1 tablet by gena th three times a day. clobetasol propionate 0.0005 mg/mg topical ointment (20 sources) Corticosteroid Start: 08-23-2021 End: 04-19-2023 Clobetasol Discontinued 1 APPLIC TOPICAL DAILY August 23, 2021 1:00am April 19, 2023 10:44pm Start: 04-26-2020 clobetasol (TE MOVATE) 0.05 % ointment Apply 1 application to affected area as directed. 45 g 0 04/26/2020 Active Start: 04-12-2017 TEMOVATE 0.05 % OINT Apply to affected area nightly for 6-12 weeks. then use 1-2 times weekly for maintenance CLOBETASOL PROPIONATE [id number] Veronique Quezada Comment on above: Apply 1 application to affected area as directed. 1 ml denosumab 60 mg/ml prefilled syringe (20 sources) RANK Ligand Inhibitor Start: 12-10-2023 End: 06-12-2024 60 mg, SUBCUTANEOUS, EVERY 6 MONTHS, 2 doses, First dose on Wed12/10/23 at 0000, Last dose on Wed06/07/24 at 0000, Allow To Come To Room Temperature Before Administration. REFRIGERATE Start: 12-10-2023 End: 12-03-2024 denosumab 60 mg injection (P ROLIA) Start: 11-09-2023 End: 11-08-2024 denosumab (PROLIA) 60 mg/mL Inject 1 mL subcutaneously once every 6 months. 1 mL 1 11/09/2023 11/08/2024 Active Start: 10-20-2021 End: 10-30-2023 denosumab (PROLIA) 60 mg/mL Inject 1 mL subcutaneously once every 6 months. 1 mL 1 10/30/2022 10/30/2023 Comment on above: Inject 1 mL subcutan eously once every 6 months. 1 ml dexamethasone phosphate 4 mg/ml injection (9 sources) Corticosteroid Start: 08-17-2024 End: 08-17-2024 dexAMETHasone sodium phosphate 2 mg injection (DECADRON) Start: 08-11-2024 End: 08-11-2024 dexAMETHasone sodium phospha te 10 mg injection (DECADRON) Start: 08-11-2024 End: 08-11-2024 10 mg, OTHER, ONCE, 1 dose, On Wed08/11/24 at 1200, Administer over 5 minutes. Start: 03-13-2024 End: 03-13-2024 dexAMETHasone sodium phospha te 2 mg injection (DECADRON) Start: 10-01-2023 End: 10-01-2023 dexAMETHasone sodium phospha te 2 mg injection (DECADRON) dexamethasone 0.001 mg/mg / neomycin 0.0035 mg/mg / polymyxin b 10 unt/mg ophthalmic ointment (20 sources) Aminoglycoside Antibacterial, Polymyxin-class Antibacterial, Corticosteroid End: 06-09-2022 NEOMYCIN 3.5 MG/G-POLYMYXIN B 10,000 UNIT/G-DEXAMETH 0.1 % EYE OINT Use 1 application in the left eye daily at bedtime. 0 06/09/2022 Discontinued (Course of therapy completed) Comment on above: Use 1 application in the left eye daily at bedtime. difluprednate 0.5 mg/ml ophthalmic suspension (20 sources) Start: 10-15-2021 take 1 drop(s) into the eye(s) four times daily difluprednate (DUREZOL) 0.05 % ophthalmic suspension Use 1 Drop in the right eye four times daily. For use in operative eye AFTER surgery. 5 mL 3 10/15/2021 Active Comment on above: Use 1 Drop in the ri ght eye four times daily. For use in operative eye AFTER surgery. dorzolamide 20 mg/ml ophthalmic solution (12 sources) Carbonic Anhydrase Inhibitor Start: 10-15-2021 take 1 drop(s) into the eye(s) every twelve hours dorzolamide (TRUSOPT) 2 % ophthalmic solution Use 1 Drop in the right eye every 12 hours. 10 mL 11 10/15/2021 Active Start: 08-23-2021 Dorzolamide (P f) Active 1 DRP EACH EYE TWICE A DAY August 23, 2021 1:00am Start: 08-23-2021 Dorzolamide (P f) Active 1 DRP EACH EYE TWICE A DAY August 23, 2021 12:00am Comment on above: Use 1 Drop in the ri ght eye every 12 hours. eptinezumab-jjmr 300 mg in NaCl 0.9% 100 mL (VYEPTI) (4 sources) Start: 01-23-2025 End: 01-23-2025 300 mg, INTRAVENOUS, at 200 mL/hr, Administer over 30 Minutes, ONCE, 1 dose, On Wed01/23/25 at 0830, EXP: Administer with 0.2 micron filter. Start: 07-18-2024 End: 07-18-2024 300 mg, INTRAVENOUS, at 200 mL/hr, Administer over 30 Minutes, ONCE, 1 dose, On Wed07/18/24 at 0800, EXP: Administer with 0.2 micron filter. Start: 04-24-2024 End: 04-24-2024 300 mg, INTRAVENOUS, at 200 mL/hr, Administer over 30 Minutes, ONCE, 1 dose, On Wed04/24/24 at 0930, EXP: Administer with 0.2 micron filter. Start: 01-17-2024 End: 01-17-2024 eptinezumab-jjmr 300 mg in N aCl 0.9% 100 mL (VYEPTI) 1 ml erenumab-aooe 70 mg/ml auto-injector (17 sources) Start: 10-02-2024 End: 10-02-2025 inject 1 mL by subcutaneous injection every month erenumab-aooe (AIMOVIG AUTOINJECTOR) 70 mg/mL auto-injector Indications: Chronic migraine without aura without status migrainosus, not intractable Inject 1 mL subcutaneously once every month. 1 mL 11 10/02/2024 12/14/2024 Discontinued estrogens, conjugated (jail) 0.625 mg/ml vaginal cream (20 sources) Estrogen Start: 04-03-2020 PREMARIN vagin al cream Indications: Lichen sclerosus et atrophicus Use 0.5 gram vaginally once each week, as directed. 30 g 2 04/03/2020 Active Start: 2017 End: 07-26-2019 Conjugated Estrogens (Premar in) 0.625 mg/gram cream Discontinued 1 APPLIC VAGINAL EVERY WEEK 2017 12:00am July 26, 2019 11:43am Start: 04-12-2017 PREMARIN 0.625 MG/GM CREA ESTROGENS, CONJUGATED [id number] Veronique Quezada Comment on above: Use 0.5 gram vaginal ly once each week, as directed. eszopiclone 3 mg oral tablet (20 sources) Start: End: take 1 tablet by mouth once daily at bedtime eszopiclone (LUNESTA) 3 mg tab Indications: Primary insomnia Take 1 tablet by mouth daily at bedtime for 90 days. 30 tablet 2 01/04/2025 02/13/2025 Discontinued Start: 08-25-2024 End: 10-20-2024 take 1 tablet by mouth once daily at bedtime eszopiclone (LUNESTA) 2 mg Indications: Primary insomnia Take 1 tablet by mouth daily at bedtime for 30 days. Do not take Lorazepam the same time as this medication. 30 tablet 09/20/2024 09/26/2024 Discontinued Start: 07-21-2024 End: 08-20-2024 take 1 tablet by mouth once daily at bedtime eszopiclone (LUNESTA) 2 mg Indications: Primary insomnia Take 1 tablet by mouth daily at bedtime for 30 days. 30 tablet 07/21/2024 08/20/2024 fluconazole 150 mg oral tablet (3 sources) Azole Antifungal Start: 04-12-2017 DIFLUCAN 150 MG TABS FLUCONAZOLE [id number] Veronique Quezada folic acid 1 mg oral tablet (20 sources) Start: 01-19-2024 End: 02-13-2025 take 1 tablet by mouth once daily folic acid 1 mg tablet Indications: Normocytic anemia Take 1 tablet by mouth once daily. 90 tablet 1 08/17/2024 02/13/2025 Start: 08-23-2021 take 1 mg by mouth once daily Folic Acid Active 1 MG PO DAILY August 23, 2021 1:00am 10 ml lidocaine hydrochloride 10 mg/ml injection (20 sources) Antiarrhythmic, Amide Local Anesthetic Start: 08-11-2024 End: 08-11-2024 lidocaine (PF) 10 mg/mL (1 %) 100 mg injection (XYLOCAINE) Start: 08-11-2024 End: 08-11-2024 100 mg, OTHER, ONCE, 1 dose, On Wed08/11/24 at 1200 Start: 07-24-2024 End: 07-24-2024 lidocaine (PF) 10 mg/mL (1 % ) 100 mg injection (XYLOCAINE) Start: 07-24-2024 End: 07-24-2024 100 mg, OTHER, ONCE, 1 dose, On Wed07/24/24 at 0800 Start: 07-03-2024 End: 07-03-2024 lidocaine (PF) 10 mg/mL (1 % ) 100 mg injection (XYLOCAINE) Start: 07-03-2024 End: 07-03-2024 100 mg, OTHER, ONCE, 1 dose, On Wed07/03/24 at 0900 Start: 07-22-2023 End: 07-22-2023 lidocaine (PF) 10 mg/mL (1 % ) 100 mg injection (XYLOCAINE) Start: 07-22-2023 End: 07-22-2023 lidocaine (PF) 20 mg/mL (2 % ) 200 mg injection (XYLOCAINE) Start: 06-11-2023 End: 06-11-2023 lidocaine (PF) 10 mg/mL (1 % ) 100 mg injection (XYLOCAINE) Start: 06-11-2023 End: 06-11-2023 lidocaine (PF) 20 mg/mL (2 % ) 200 mg injection (XYLOCAINE) Start: 11-26-2022 End: 11-26-2022 lidocaine (PF) 10 mg/mL (1 % ) 50 mg injection (XYLOCAINE) Start: 09-10-2022 End: 09-10-2022 lidocaine (PF) 20 mg/mL (2 % ) 100 mg injection (XYLOCAINE) Start: 08-27-2022 End: 08-27-2022 lidocaine (PF) 10 mg/mL (1 % ) 40 mg injection (XYLOCAINE) Start: 07-01-2022 End: 07-01-2022 lidocaine (PF) 20 mg/mL (2 % ) 200 mg injection (XYLOCAINE) Start: 06-12-2022 End: 11-10-2022 apply 1 dose transdermal route once daily, then apply 1 dose transdermal route every twelve hours lidocaine (LIDODERM) 5 % Indications: Neuropathic pain , Other chronic pain Apply 1 Patch as directed once daily. Remove patch after 12 hours. 30 Patch 2 08/12/2022 11/10/2022 Active Start: 11-12-2021 End: 11-12-2021 lidocaine (PF) 20 mg/mL (2 % ) 20 mg injection (XYLOCAINE) Comment on above: Apply 1 Patch as dir ected once daily. Remove patch after 12 hours. 1 ml methylPREDNISolone acetate 40 mg/ml injection (4 sources) Corticosteroid Start: 07-22-20 End: 07-22-20 methylPREDNISolone acetate 40 mg injection (DEPO-Medrol) Start: 06-11-2023 End: 06-11-2023 methylPREDNISolone acetate 4 0 mg injection (DEPO-Medrol) Start: 07-01-2022 End: 07-01-2022 methylPREDNISolone acetate 4 0 mg injection (DEPO-Medrol) Start: 03-11-2022 End: 03-11-2022 methylPREDNISolone acetate 4 0 mg injection (DEPO-Medrol) mupirocin 0.02 mg/mg topical ointment (8 sources) RNA Synthetase Inhibitor Antibacterial Start: 12-14-2024 End: 2024 mupirocin (BACTROBAN) 2 % ointment Apply 0.5 inch with cotton swab (Q-tip) to each nostril in the morning and evening for 5 days prior to and including day of surgery. 22 g 12/14/2024 2024 Suspended phenylephrine hydrochloride 25 mg/ml ophthalmic solution (1 source) alpha-1 Adrenergic Agonist Start: 08-03-2023 End: 08-03-2023 PHENYLephrine 2.5 % 1 Drop (AK-DILATE, WALLY-SYNEPHRINE) riboflavin 100 mg oral tablet (5 sources) Start: 04-15-2017 End: 2017 take 400 mg by mouth once daily Riboflavin (Vitamin B2) Discontinued 400 MG PO DAILY April 15, 2017 12:00am 2017 2:30pm Start: 04-12-2017 take 1 tablet by gena th once daily B-2-400 CAPS One tablet by mouth daily RIBOFLAVIN CAPS [id number] Veronique Quezada thiamine 100 mg oral tablet (2 sources) Start: 04-15-2017 End: 2017 take 50 mg by mouth once daily Thiamine Hcl (Vitamin B1) Discontinued 50 MG PO DAILY April 15, 2017 12:00am 2017 2:27pm 12 hr timolol 5 mg/ml ophthalmic solution (20 sources) beta-Adrenergic Víctor Start: 12-02-2022 End: 08-03-2023 timolol maleate (TIMOPTIC) 0.5 % ophthalmic solution Use 1 Drop in both eyes every morning. 10 mL 11 12/02/2022 08/03/2023 Discontinued (Dosage adjustment) Start: 11-27-2021 End: 12-02-2022 timolol maleate (TIMOPTIC) 0 .5 % ophthalmic solution Use 1 Drop in both eyes every morning. 10 mL 11 12/02/2022 Active Start: 10-15-2021 timolol maleat e (TIMOPTIC) 0.5 % ophthalmic solution Use 1 Drop in both eyes every morning. 10 mL 11 10/15/2021 Active Start: 08-23-2021 End: 08-03-2023 timolol maleate (TIMOPTIC) 0 .25 % ophthalmic solution Use in eyes. 0 08/23/2021 08/03/2023 Discontinued (Course of therapy completed) Start: 08-23-2021 Timolol Maleat e Active 1 DRP EACH EYE DAILY August 23, 2021 1:00am Start: 08-23-2021 Timolol Maleat e Active 1 DRP EACH EYE DAILY August 23, 2021 12:00am Comment on above: Use 1 Drop in both e yes every morning. Use 1 Drop in the le ft eye every morning. Use in eyes. triamcinolone acetonide 10 mg/ml injectable suspension (7 sources) Corticosteroid Start: 08-17-2024 End: 08-17-2024 triamcinolone acetonide 5 mg injection (KeNALog 10) Start: 03-13-2024 End: 03-13-2024 triamcinolone acetonide 5 mg injection (KeNALog 10) Start: 10-01-2023 End: 10-01-2023 triamcinolone acetonide 5 mg injection (KeNALog 10) tropicamide 10 mg/ml ophthalmic solution (1 source) Anticholinergic Start: 08-03-2023 End: 08-03-2023 tropicamide 1 % 1 Drop (MYDRIACYL) zolpidem tartrate 10 mg oral tablet (20 sources) gamma-Aminobutyric Acid-ergic Agonist Start: 03-03-2023 End: 09-20-2024 take 1 tablet by mouth once daily at bedtime zolpidem (AMBIEN) 10 mg Indications: Primary insomnia Take 1 tablet by mouth daily at bedtime for 90 days. 30 tablet 2 05/18/2024 09/20/2024 Discontinued (Lack of Efficacy) Start: 11-30-2022 End: 02-24-2023 take 1 tablet by mouth once daily at bedtime zolpidem (AMBIEN) 10 mg Indications: Primary insomnia Take 1 tablet by mouth daily at bedtime for 30 days. 30 tablet 2 11/30/2022 02/24/2023 Discontinued Start: 10-20-2022 End: 11-27-2022 take 1 tablet by mouth once daily at bedtime zolpidem (AMBIEN) 10 mg Indications: Primary insomnia Take 1 tablet by mouth daily at bedtime for 30 days. 30 tablet 2 10/22/2022 11/27/2022 Discontinued Start: 07-24-2013 End: 10-09-2022 take 1 tablet by mouth once daily at bedtime zolpidem (AMBIEN) 10 mg Indications: Primary insomnia Take 1 tablet by mouth daily at bedtime for 30 days. 30 tablet 0 09/09/2022 Active Start: 07-03-2013 AMBIEN TABS As Directed ZOLPIDEM TARTRATE TABS [id number] Mindy Encinas Comment on above: Take 1 tablet by gena th daily at bedtime for 60 days. Take 1 tablet by gena th daily at bedtime for 180 days. Take 1 tablet by gean th daily at bedtime for 30 days. Do not start before August 24, 2022. Take 1 tablet by gena th daily at bedtime for 30 days. Take 1 tablet by gena th daily at bedtime for 30 days. Do not start before March 03, 2023. Take 1 tablet by gena th daily at bedtime for 90 days. Problems Active Problems Problem Classification Problem Date Documented Da te Episodic/Chronic Acute and unspecified renal failure (4 sources) Acute injury of kidney; Translations: [Acute kidney failure, unspecified] Episodic Acute posthemorrhagic anemia (1 source) Acute posthemorrhagic anemia; Translations: [Acute posthemorrhagic anemia] Onset: 01-05-2025 Episodic Adjustment disorders (3 sources) Posttraumatic stress disorder; Translations: [Reaction to severe stress, unspecified] Onset: 02-13-2025 09-26-2024 Chronic Anxiety disorders (20 sources) Anxiety; Translations: [Panic disorder without agoraphobia] Onset: 08-31-2005 Resolved: 07-01-2009 04-12-2017 Chronic Blindness and vision defects (2 sources) Visual impairment; Translations: [Unqualified visual loss, right eye, normal vision left eye] Onset: 01-05-2025 Chronic Cataract (20 sources) Bilateral cortical age-related cataract eyes; Translations: [Cortical age-related cataract, bilateral] Onset: 10-15-2020 10-15-2020 Chronic Chronic kidney disease (5 sources) Chronic kidney disease stage 3A ; Translations: [Stage 3a chronic kidney disease (HCC)] Onset: 12-14-2024 01-18-2024 Chronic Chronic kidney disease (1 source) Chronic kidney disease; Translations: [Stage 3a chronic kidney disease (HCC)] Onset: 04-11-2024 Complications of surgical procedures or medical care (20 sources) Postsurgical menopause; Translations: [Asymptomatic postprocedural ovarian failure] Onset: 07-01-2009 07-01-2009 Chronic Deficiency and other anemia (4 sources) Anemia; Translations: [Anemia, unspecified] Onset: 04-12-2017 04-15-2017 Episodic Deficiency and other anemia (2 sources) Chronic anemia; Translations: [Anemia, unspecified] 07-25-2019 Episodic Deficiency and other anemia (6 sources) Normocytic anemia; Translations: [Anemia, unspecified] 01-19-2024 Episodic Deficiency and other anemia (1 source) Anemia, unspecified; Translations: [Normocytic anemia] Onset: 12-14-2024 Episodic Delirium, dementia, and amnestic and other cognitive disorders (2 sources) Delirium; Translations: [Delirium due to known physiological condition] Onset: 02-13-2025 02-13-2025 Chronic Diseases of white blood cells (20 sources) Neutropenic disorder; Translations: [Other neutropenia] Onset: 01-17-2018 10-29-2021 Chronic Disorders of lipid metabolism (20 sources) Pure hypercholesterolemia; Translations: [Pure hypercholesterolemia, unspecified] Onset: 09-01-2021 10-29-2021 Chronic E Codes: Fall (6 sources) Fall; Translations: [Unspecified fall, initial encounter] Episodic Epilepsy; convulsions (1 source) Epilepsy, unspecified, not intractable, without status epilepticus; Translations: [Epilepsy, unspecified, not intractable, without status epilepticus] Onset: 01-05-2025 Chronic Esophageal disorders (1 source) Gastro-esophageal reflux disease without esophagitis; Translations: [Gastro-esophageal reflux disease without esophagitis] Onset: 01-05-2025 Chronic Essential hypertension (20 sources) Hypertensive disorder; Translations: [Essential (primary) hypertension] Onset: 02-19-2003 Resolved: 07-01-2009 10-29-2021 Chronic Gastroduodenal ulcer (except hemorrhage) (20 sources) Peptic ulcer; Translations: [Gastric ulcer] Onset: 01-04-2013 04-12-2017 Chronic Genitourinary symptoms and ill-defined conditions (1 source) Retention of urine, unspecified; Translations: [Retention of urine, unspecified] Onset: 01-05-2025 Episodic Glaucoma (20 sources) Glaucoma; Translations: [Bilateral low tension glaucoma of eyes] Onset: 04-12-2017 04-12-2017 Chronic Headache; including migraine (20 sources) Migraine; Translations: [Migraine, unspecified, not intractable, without status migrainosus] Onset: 09-29-2010 04-12-2017 Chronic Headache; including migraine (3 sources) Chronic daily headache; Translations: [Chronic daily headache] Episodic Immunizations and screening for infectious disease (2 sources) Vaccination needed; Translations: [Encounter for immunization] 07-21-2023 Episodic Joint disorders and dislocations; trauma-related (20 sources) Traumatic arthropathy-knee; Translations: [Traumatic arthropathy, right knee] Onset: 01-15-2003 Chronic Joint disorders and dislocations; trauma-related (2 sources) Dislocation of carpometacarpal joint; Translations: [Dislocation of other carpometacarpal joint of left hand, initial encounter] Episodic Malaise and fatigue (1 source) Other malaise; Translations: [Other malaise] Onset: 01-05-2025 Episodic Miscellaneous mental health disorders (20 sources) Primary insomnia; Translations: [Primary insomnia] Onset: 05-29-2023 Chronic Mood disorders (20 sources) Recurrent major depressive episodes, moderate ; Translations: [Major depressive disorder, recurrent, moderate] Onset: 05-30-2023 Chronic Mood disorders (2 sources) Mood disorders; Translations: [Depression, unspecified] Onset: 07-19-2024 Nutritional deficiencies (20 sources) Vitamin D deficiency; Translations: [Vitamin D deficiency, unspecified] Onset: 01-18-2017 10-29-2021 Chronic Osteoarthritis (18 sources) Arthritis; Translations: [Osteoarthrosis of the carpometacarpal joint of the thumb] Onset: 04-12-2017 04-12-2017 Chronic Osteoporosis (20 sources) Osteoporosis; Translations: [Age-related osteoporosis without current pathological fracture] Onset: 02-21-2015 04-12-2017 Chronic Other aftercare (1 source) Aftercare following joint replacement surgery; Translations: [Aftercare following joint replacement surgery] Onset: 01-09-2025 Chronic Other aftercare (2 sources) Surgical follow-up; Translations: [Encounter for follow-up examination after completed treatment for conditions other than malignant neoplasm] Episodic Other aftercare (3 sources) Long-term current use of opiate analgesic drug; Translations: [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] Episodic Other aftercare (2 sources) Long-term current use of drug therapy; Translations: [Other fpc (current) drug therapy] 07-28-2024 Episodic Other bone disease and musculoskeletal deformities (2 sources) Pain in femur; Translations: [Other specified disorders of bone, thigh] Episodic Other circulatory disease (1 source) Transient hypotension; Translations: [Hypotension, unspecified] 04-19-2023 Episodic Other circulatory disease (16 sources) Low blood pressure; Translations: [Hypotension, unspecified] Onset: 01-01-2025 01-01-2025 Episodic Other connective tissue disease (20 sources) History of total knee arthroplasty; Translations: [Presence of right artificial knee joint] Onset: 12-23-2024 12-23-2024 Chronic Other connective tissue disease (3 sources) Presence of right artificial knee joint; Translations: [Status post right knee replacement] Onset: 01-05-2025 Chronic Other connective tissue disease (20 sources) Pain in lower limb; Translations: [Pain in right leg] Episodic Other connective tissue disease (5 sources) Pain in left thumb; Translations: [Pain in left finger(s)] Episodic Other connective tissue disease (1 source) Neuralgia; Translations: [Neuralgia and neuritis, unspecified] Episodic Other connective tissue disease (5 sources) Neuropathic pain; Translations: [Neuralgia and neuritis, unspecified] Episodic Other connective tissue disease (1 source) Swelling of lower limb; Translations: [Other specified soft tissue disorders] Episodic Other connective tissue disease (2 sources) Plantar fasciitis; Translations: [Plantar fascial fibromatosis] 10-01-2023 Episodic Other connective tissue disease (1 source) Pain in both feet; Translations: [Pain in right foot] 10-01-2023 Episodic Other connective tissue disease (1 source) Bilateral plantar fasciitis; Translations: [Plantar fascial fibromatosis] 08-17-2024 Episodic Other endocrine disorders (1 source) Hypoglycemia; Translations: [Hypoglycemia, unspecified] 04-19-2023 Chronic Other eye disorders (1 source) Optic disc hemorrhage; Translations: [Other disorders of optic disc, right eye] 08-03-2023 Chronic Other gastrointestinal disorders (20 sources) Malabsorption - iron; Translations: [Intestinal malabsorption, unspecified] Onset: 04-02-2017 10-29-2021 Chronic Other gastrointestinal disorders (1 source) Constipation, unspecified; Translations: [Constipation, unspecified] Onset: 01-05-2025 Episodic Other injuries and conditions due to external causes (1 source) Closed injury of head; Translations: [Unspecified injury of head, initial encounter] 04-19-2023 Episodic Other liver diseases (1 source) Elevated liver enzymes level; Translations: [Abnormal levels of other serum enzymes] Episodic Other liver diseases (1 source) Alkaline phosphatase raised; Translations: [Abnormal levels of other serum enzymes] Episodic Other nervous system disorders (20 sources) Meralgia paresthetica of right leg; Translations: [Meralgia paresthetica, right lower limb] Onset: 07-14-2021 Chronic Other nervous system disorders (15 sources) Meralgia paresthetica; Translations: [Meralgia paresthetica, unspecified lower limb] Onset: 07-14-2021 10-29-2021 Chronic Other nervous system disorders (3 sources) Chronic postoperative pain; Translations: [Other chronic postprocedural pain] Chronic Other nervous system disorders (4 sources) Chronic pain; Translations: [Other chronic pain] Chronic Other nervous system disorders (2 sources) Other chronic pain; Translations: [Chronic pain of right knee] Onset: 06-01-2024 Chronic Other nervous system disorders (1 source) Aphasia; Translations: [Aphasia] Onset: 01-05-2025 Chronic Other nervous system disorders (1 source) Dysarthria and anarthria; Translations: [Dysarthria and anarthria] Onset: 01-05-2025 Episodic Other non-traumatic joint disorders (1 source) Pain in right hip joint; Translations: [Pain in right hip] Episodic Other non-traumatic joint disorders (3 sources) Pain of left wrist; Translations: [Pain in left wrist] Episodic Other non-traumatic joint disorders (6 sources) Hip pain; Translations: [Pain in right hip] 02-20-2022 Episodic Other non-traumatic joint disorders (3 sources) Pain of right wrist; Translations: [Pain in right wrist] 09-28-2024 Episodic Other nutritional; endocrine; and metabolic disorders (1 source) Weight increased; Translations: [Abnormal weight gain] 09-26-2024 Episodic Other screening for suspected conditions (not mental disorders or infectious disease) (12 sources) Patient encounter status; Translations: [Encounter for screening mammogram for malignant neoplasm of breast] Episodic Other skin disorders (20 sources) Lichen sclerosus et atrophicus; Translations: [Circumscribed scleroderma] Onset: 07-28-2016 07-28-2016 Chronic Other skin disorders (1 source) Lip swelling; Translations: [Localized swelling, mass and lump, head] 07-19-2023 Episodic Residual codes; unclassified (1 source) Did not attend; Translations: [Procedure and treatment not carried out because of patient's decision for other reasons] Episodic Residual codes; unclassified (3 sources) Memory impairment; Translations: [Other amnesia] 03-16-2023 Episodic Residual codes; unclassified (1 source) Pain; Translations: [Pain, unspecified] 10-01-2023 Episodic Residual codes; unclassified (17 sources) Postprocedural state finding; Translations: [Other specified postprocedural states] Onset: 12-29-2024 12-29-2024 Episodic Residual codes; unclassified (1 source) Insomnia, unspecified; Translations: [Insomnia, unspecified] Onset: 01-05-2025 Episodic Retinal detachments; defects; vascular occlusion; and retinopathy (20 sources) Central retinal vein occlusion, unspecified eye; Translations: [Thrombosis of retinal vein] Onset: 04-12-2017 04-12-2017 Chronic Screening and history of mental health and substance abuse codes (1 source) Patient condition resolved; Translations: [Personal history of other mental and behavioral disorders] 04-19-2023 Episodic Spondylosis; intervertebral disc disorders; other back problems (15 sources) Degeneration of lumbar intervertebral disc; Translations: [Other intervertebral disc degeneration, lumbar region] Onset: 03-02-2024 10-29-2023 Chronic Superficial injury; contusion (2 sources) Ecchymosis of eyelid; Translations: [Contusion of unspecified eyelid and periocular area, initial encounter] Episodic Thyroid disorders (20 sources) Hypothyroidism; Translations: [Hypothyroidism, unspecified] Onset: 02-19-2003 04-12-2017 Chronic Transient cerebral ischemia (20 sources) Transient cerebral ischemia; Translations: [Transient cerebral ischemic attack, unspecified] Onset: 11-17-2021 11-17-2021 Chronic Unclassified (1 source) NO SHOW Unclassified (2 sources) Post-traumatic osteoarthritis of right knee 10-09-2024 Unclassified (20 sources) 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 Onset: 10-09-2024 10-09-2024 Unclassified (1 source) Degeneration of intervertebral disc of lumbar region without discogenic back pain or lower extremity pain; Translations: [Degeneration of intervertebral disc of lumbar region without discogenic back pain or lower extremity pain] Onset: 06-01-2024 Unclassified (1 source) Unspecified intracranial injury with loss of consciousness status unknown, subsequent encounter; Translations: [Unspecified intracranial injury with loss of consciousness status unknown, subsequent encounter] Onset: 01-05-2025 Past or Other Problems Problem Classification Problem Date Documented Da te Episodic/Chronic Administrative/social admission (3 sources) Stress; Translations: [Other specified problems related to psychosocial circumstances] Onset: 07-21-2024 07-28-2024 Episodic Complication of device; implant or graft (4 sources) Complication associated with orthopedic device; Translations: [Unspecified complication of internal orthopedic prosthetic device, implant and graft, initial encounter] Onset: 07-26-2024 07-05-2024 Episodic Deficiency and other anemia (20 sources) Iron deficiency anemia; Translations: [Iron deficiency anemia, unspecified] Onset: 04-02-2017 10-29-2021 Episodic Diabetes mellitus without complication (20 sources) Diabetes mellitus; Translations: [Type 2 diabetes mellitus without complications] Onset: 11-17-2021 Resolved: 01-14-2022 11-17-2021 Chronic Diabetes mellitus without complication (20 sources) Prediabetes; Translations: [Prediabetes] Onset: 11-17-2021 01-08-2021 Episodic E Codes: Adverse effects of medical drugs (1 source) Adverse effect of unspecified drugs, medicaments and biological substances, initial encounter; Translations: [Weight gain due to medication] Onset: 10-02-2024 Episodic Epilepsy; convulsions (20 sources) Neurological finding; Translations: [Unspecified convulsions] Onset: 08-28-2021 08-28-2021 Episodic Fluid and electrolyte disorders (3 sources) Metabolic acidosis; Translations: [Metabolic acidosis] Onset: 04-11-2024 04-18-2024 Episodic Fracture of upper limb (20 sources) Closed Colles' fracture; Translations: [Colles' fracture of unspecified radius, initial encounter for closed fracture] Onset: 05-09-2003 Resolved: 07-01-2009 07-01-2009 Episodic Inflammation; infection of eye (except that caused by tuberculosis or sexually transmitteddisease) (2 sources) Bacterial conjunctivitis;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 [Z98.84] 07/01/2009 Insomnia [G47.00] 09/29/2010 Migraine [G43.909] 09/29/2010 Climacteric [N95.1] 03/29/2012 05/08/2015 PUD (peptic ulcer disease) [K27.9] 01/04/2013 Osteoporosis [M81.0] 02/21/2015 Lichen sclerosus et atrophicus [L90.0] 07/28/2016 Vitamin D deficiency [E55.9] 01/18/2017 H/O gastric bypass [Z98.84] 04/02/2017 Malabsorption of iron [K90.9] 04/02/2017 Iron deficiency anemia [D50.9] 04/02/2017 Other neutropenia (HCC) [D70.8] 01/17/2018 Age-related osteoporosis without current pathol*03/14/2019 Retinal vein occlusion of left eye [H34.8122] Hypertension [I10] Pos (more content not included)... Normal [facility] 05-31-2024 [facility] Telephone (PSWSTR) ----- OLDER,EMELY Anthony ([id number]) 1960 F Date Time Provider Department 05/31/24 ZINA WISE PSWSTR During your visit today, we recorded the following information about you: Sonia Jain LPN 05/31/2024 8:12 AM Signed Telephone call to patient, left message for patient to pickler helper discount card for rexulti at the [place] office or let us know if we should mail it to her. ALEXANDER Torres Ashley 05/31/2024 8:23 AM Signed Patient returned call and is wanting to pickler helper discount card in office. Zina Wise APRN.HARISH 05/31/2024 3:10 PM Signed Noted. Glad patient will be able to start the medication with the co-pay card. Allergies As of Date: 05/31/2024 (No Known Allergies) Date Reviewed: 04/24/2024 Reviewed by: Kecia Perea, RN - Fully Assessed Reason for Visit: Discount Card [Other] Prescriptions as of 05/31/2024 - brexpiprazole (REXULTI) 1 mg tablet Take 1 tablet by mouth once daily. - venlafaxine (EFFEXOR) 75 mg tablet Take 1.5 tablets by mouth daily with breakfast AND 1.5 tablets daily with lunch AND 1 tablet daily with dinner. - zolpidem (AMBIEN) 10 mg Take 1 tablet by mouth daily at bedtime for 90 days. - busPIRone (BUSPAR) 15 mg tablet Take 1 tablet by mouth three times a day. - LORazepam (ATIVAN) 0.5 mg Take 1 tablet by mouth two times a day as needed for up to 90 days. - folic acid 1 mg tablet Take 1 tablet by mouth once daily. - levothyroxine (SYNTHROID) 50 mcg tablet Take 1 tablet by mouth once daily. - gabapentin (NEURONTIN) 600 mg tablet Take 1 tablet by mouth three times a day for 180 days. - rizatriptan (MAXALT) 10 mg tablet Take 1 tablet (10 mg) by mouth as needed. FOR MIGRAINE HEADACHE (SEE ADMINISTRATION INSTRUCTIONS). Can repeat one time in 2 hours if needed. No more than 2 doses in 24 hours. Max 9 days a month. 36 tablets is a 90 day supply - topiramate (TOPAMAX) 100 mg tablet Take 1 tablet by mouth once daily AND 3 tablets daily at bedtime. - ferrous sulfate 325 mg (65 mg iron) tablet Take 1 tablet by mouth two times a day with meals. - cyanocobalamin 1,000 mcg/mL Inject 1 mL intramuscularly once every month. - cyclobenzaprine (FLEXERIL) 10 mg tablet Take 1 tablet by mouth three times a day as needed for muscle spasm. - denosumab (PROLIA) 60 mg/mL Inject 1 mL subcutaneously once every 6 months. - pantoprazole DR (PROTONIX) 40 mg tablet Take 1 tablet by mouth two times a day. - dorzolamide-timolol (COSOPT) 22.3-6.8 mg/mL ophthalmic solution Use 1 Drop in both eyes every 12 hours. - latanoprost (XALATAN) 0.005 % ophthalmic solution Use 1 Drop in both eyes once daily. - metFORMIN (GLUCOPHAGE) 500 mg tablet Take 1 tablet by mouth daily with breakfast. - atorvastatin (LIPITOR) 20 mg tablet Take 20 mg by mouth daily at bedtime. - ondansetron (ZOFRAN) 4 mg tablet Take 1 tablet by mouth every 8 hours as needed for nausea/vomiting. - Syringe with Needle, Disp, 1 mL 25 gauge x 1 syrg 1 Device once every month. For vitamin B12 injection. - carboxymethylcellulose sodium (ARTIFICIAL TEARS, CMC, OPHTHALMIC) Use in eyes. PF PRN OU - cholecalciferol (VITAMIN D3) 50 mcg (2,000 unit) tablet Take 2,000 Units by mouth once daily. - folic acid/multivit-min/lutein (CENTRUM SILVER ORAL) Take by mouth. 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] 01/15/2003 Unspecified Essential Hypertension [I10] 02/19/2003 07/01/2009 Hypothyroidism [E03.9] 02/19/2003 Closed Colles' Fracture [S52.539A] 05/09/2003 07/01/2009 ILEUS ADYNAMIC [K56.0] 08/28/2005 07/01/2009 ANXIETY REACTION [F41.1] 08/31/2005 07/01/2009 Panic disorder without agoraphobia [F41.0] 12/03/2005 Enlargement of Lymph Nodes [R59.9] 06/12/2008 07/01/2009 Postsurgical Menopause [E89.40] 07/01/2009 S/P Gastric Bypass [Z98.84] 07/01/2009 Insomnia [G47.00] 09/29/2010 Migraine [G43.909] 09/29/2010 Climacteric [N95.1] 03/29/2012 05/08/2015 PUD (peptic ulcer disease) [K27.9] 01/04/2013 Osteoporosis [M81.0] 02/21/2015 Lichen sclerosus et atrophicus [L90.0] 07/28/2016 Vitamin D deficiency [E55.9] 01/18/2017 H/O gastric bypass [Z98.84] 04/02/2017 Malabsorption of iron [K90.9] 04/02/2017 Iron deficiency anemia [D50.9] 04/02/2017 Other neutropenia (HCC) [D70.8] 01/17/2018 Age-related osteoporosis without current pathol*03/14/2019 Retinal vein occlusion of left eye [H34.8122] Hypertension [I10] Postmenopausal osteoporosis [M81.0] 08/01/2020 Low-tension glaucoma of both eyes, severe stage*10/15/2020 Cortical senile cataract of both eyes [H25.013] 10/15/2020 Choroidal nevus, 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 Normal [facility] 05-29-2024 [facility] Telephone (PSWSTR) ----- OLDER,EMELY Anthony ([id number]) 1960 F Date Time Provider Department 05/29/24 ZINA WISE PSWSTR During your visit today, we recorded the following information about you: Nelda Pichardo MA 05/29/2024 5:15 PM Signed Prior Authorization has been completed online at [employer] for [employer], will await response. [id number] Please keep encounter open until final decision has been received and documented from insurance company. Nelda Valdez MA, MA 05/30/2024 10:37 AM Signed PA denied: Criteria for medical necessity were not met. Your records with us and the information submitted by your doctor do not show you meet the following criteria: (1) trial and failure or are unable to use two of the following: olanzapine, or Quetiapine DARRELL Ortega Nishi J, APRN.HARISH 05/30/2024 12:36 PM Signed Received the documents from the insurance company with denial. Will call to see if I can appeal the denial as the other alternatives are not appropriate or safe for the patient. Zina Wise APRN.HARISH 05/30/2024 6:09 PM Signed Discussed having the patient utilize the [employer] co-pay card due to insurance denial. Allergies As of Date: 05/29/2024 (No Known Allergies) Date Reviewed: 04/24/2024 Reviewed by: Kecia Perea RN - Fully Assessed Reason for Visit: Insurance Authorization [[id number]] Cmt: [employer] Prescriptions as of 05/31/2024 - brexpiprazole (REXULTI) 1 mg tablet Take 1 tablet by mouth once daily. - venlafaxine (EFFEXOR) 75 mg tablet Take 1.5 tablets by mouth daily with breakfast AND 1.5 tablets daily with lunch AND 1 tablet daily with dinner. - zolpidem (AMBIEN) 10 mg Take 1 tablet by mouth daily at bedtime for 90 days. - busPIRone (BUSPAR) 15 mg tablet Take 1 tablet by mouth three times a day. - LORazepam (ATIVAN) 0.5 mg Take 1 tablet by mouth two times a day as needed for up to 90 days. - folic acid 1 mg tablet Take 1 tablet by mouth once daily. - levothyroxine (SYNTHROID) 50 mcg tablet Take 1 tablet by mouth once daily. - gabapentin (NEURONTIN) 600 mg tablet Take 1 tablet by mouth three times a day for 180 days. - rizatriptan (MAXALT) 10 mg tablet Take 1 tablet (10 mg) by mouth as needed. FOR MIGRAINE HEADACHE (SEE ADMINISTRATION INSTRUCTIONS). Can repeat one time in 2 hours if needed. No more than 2 doses in 24 hours. Max 9 days a month. 36 tablets is a 90 day supply - topiramate (TOPAMAX) 100 mg tablet Take 1 tablet by mouth once daily AND 3 tablets daily at bedtime. - ferrous sulfate 325 mg (65 mg iron) tablet Take 1 tablet by mouth two times a day with meals. - cyanocobalamin 1,000 mcg/mL Inject 1 mL intramuscularly once every month. - cyclobenzaprine (FLEXERIL) 10 mg tablet Take 1 tablet by mouth three times a day as needed for muscle spasm. - denosumab (PROLIA) 60 mg/mL Inject 1 mL subcutaneously once every 6 months. - pantoprazole DR (PROTONIX) 40 mg tablet Take 1 tablet by mouth two times a day. - dorzolamide-timolol (COSOPT) 22.3-6.8 mg/mL ophthalmic solution Use 1 Drop in both eyes every 12 hours. - latanoprost (XALATAN) 0.005 % ophthalmic solution Use 1 Drop in both eyes once daily. - metFORMIN (GLUCOPHAGE) 500 mg tablet Take 1 tablet by mouth daily with breakfast. - atorvastatin (LIPITOR) 20 mg tablet Take 20 mg by mouth daily at bedtime. - ondansetron (ZOFRAN) 4 mg tablet Take 1 tablet by mouth every 8 hours as needed for nausea/vomiting. - Syringe with Needle, Disp, 1 mL 25 gauge x 1 syrg 1 Device once every month. For vitamin B12 injection. - carboxymethylcellulose sodium (ARTIFICIAL TEARS, CMC, OPHTHALMIC) Use in eyes. PF PRN OU - cholecalciferol (VITAMIN D3) 50 mcg (2,000 unit) tablet Take 2,000 Units by mouth once daily. - folic acid/multivit-min/lutein (CENTRUM SILVER ORAL) Take by mouth. 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] 01/15/2003 Unspecified Essential Hypertension [I10] 02/19/2003 07/01/2009 Hypothyroidism [E03.9] 02/19/2003 Closed Colles' Fracture [S52.539A] 05/09/2003 07/01/2009 ILEUS ADYNAMIC [K56.0] 08/28/2005 07/01/2009 ANXIETY REACTION [F41.1] 08/31/2005 07/01/2009 Panic disorder without agoraphobia [F41.0] 12/03/2005 Enlargement of Lymph Nodes [R59.9] 06/12/2008 07/01/2009 Postsurgical Menopause [E89.40] 07/01/2009 S/P Gastric Bypass [Z98.84] 07/01/2009 Insomnia [G47.00] 09/29/2010 Migraine [G43.909] 09/29/2010 Climacteric [N95.1] 03/29/2012 05/08/2015 PUD (peptic ulcer disease) [K27.9] 01/04/2013 Osteoporosis [M81.0] 02/21/2015 Lichen sclerosus et atrophicus [L90.0] 07/28/2016 Vitamin D deficiency [E55.9] 01/18/2017 H/O gastric bypass [Z98.84] 04/02/2017 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 Normal [facility] 04-21-2024 CNPN Telephone (NIQ) ----- EMELY CENTENO ([id number]) 1960 F Date Time Provider Department 04/21/24 RAAD MCRAE NIQ During your visit today, we recorded the following information about you: Camila Connor 04/21/2024 9:08 AM Signed Patient is calling in regards to her infusions for next week. She stated she was doing her Pre-Check in and it was stating that her infusions where not covered by her insurance. She wanted to make sure that her infusions are covered before getting these as it has never told her they were not covered. Aleta Mancini 04/21/2024 4:59 PM Signed Patient is authorized. Relayed message to patient and insured her that we have authorization. Per insurance company based off the DX and J-code patient is a no- precert required. Allergies As of Date: 04/21/2024 (No Known Allergies) Date Reviewed: 04/11/2024 Reviewed by: Arlin Martines APRN.NEON INSTALLER - Fully Assessed Reason for Visit: Infusion [464] Prescriptions as of 04/21/2024 - busPIRone (BUSPAR) 15 mg tablet Take 1 tablet by mouth three times a day. - zolpidem (AMBIEN) 10 mg Take 1 tablet by mouth daily at bedtime for 90 days. - levothyroxine (SYNTHROID) 50 mcg tablet Take 1 tablet by mouth once daily. - venlafaxine (EFFEXOR) 75 mg tablet Take 1.5 tablets by mouth daily with breakfast AND 1.5 tablets daily with lunch AND 1 tablet daily with dinner. - gabapentin (NEURONTIN) 600 mg tablet Take 1 tablet by mouth three times a day for 180 days. - LORazepam (ATIVAN) 0.5 mg Take 1 tablet by mouth two times a day as needed for up to 90 days. - rizatriptan (MAXALT) 10 mg tablet Take 1 tablet (10 mg) by mouth as needed. FOR MIGRAINE HEADACHE (SEE ADMINISTRATION INSTRUCTIONS). Can repeat one time in 2 hours if needed. No more than 2 doses in 24 hours. Max 9 days a month. 36 tablets is a 90 day supply - topiramate (TOPAMAX) 100 mg tablet Take 1 tablet by mouth once daily AND 3 tablets daily at bedtime. - folic acid 1 mg tablet Take 1 tablet by mouth once daily. - ferrous sulfate 325 mg (65 mg iron) tablet Take 1 tablet by mouth two times a day with meals. - cyanocobalamin 1,000 mcg/mL Inject 1 mL intramuscularly once every month. - cyclobenzaprine (FLEXERIL) 10 mg tablet Take 1 tablet by mouth three times a day as needed for muscle spasm. - denosumab (PROLIA) 60 mg/mL Inject 1 mL subcutaneously once every 6 months. - pantoprazole DR (PROTONIX) 40 mg tablet Take 1 tablet by mouth two times a day. - dorzolamide-timolol (COSOPT) 22.3-6.8 mg/mL ophthalmic solution Use 1 Drop in both eyes every 12 hours. - latanoprost (XALATAN) 0.005 % ophthalmic solution Use 1 Drop in both eyes once daily. - metFORMIN (GLUCOPHAGE) 500 mg tablet Take 1 tablet by mouth daily with breakfast. - atorvastatin (LIPITOR) 20 mg tablet Take 20 mg by mouth daily at bedtime. - ondansetron (ZOFRAN) 4 mg tablet Take 1 tablet by mouth every 8 hours as needed for nausea/vomiting. - Syringe with Needle, Disp, 1 mL 25 gauge x 1 syrg 1 Device once every month. For vitamin B12 injection. - carboxymethylcellulose sodium (ARTIFICIAL TEARS, CMC, OPHTHALMIC) Use in eyes. PF PRN OU - cholecalciferol (VITAMIN D3) 50 mcg (2,000 unit) tablet Take 2,000 Units by mouth once daily. - folic acid/multivit-min/lutein (CENTRUM SILVER ORAL) Take by mouth. 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] 01/15/2003 Unspecified Essential Hypertension [I10] 02/19/2003 07/01/2009 Hypothyroidism [E03.9] 02/19/2003 Closed Colles' Fracture [S52.539A] 05/09/2003 07/01/2009 ILEUS ADYNAMIC [K56.0] 08/28/2005 07/01/2009 ANXIETY REACTION [F41.1] 08/31/2005 07/01/2009 Panic disorder without agoraphobia [F41.0] 12/03/2005 Enlargement of Lymph Nodes [R59.9] 06/12/2008 07/01/2009 Postsurgical Menopause [E89.40] 07/01/2009 S/P Gastric Bypass [Z98.84] 07/01/2009 Insomnia [G47.00] 09/29/2010 Migraine [G43.909] 09/29/2010 Climacteric [N95.1] 03/29/2012 05/08/2015 PUD (peptic ulcer disease) [K27.9] 01/04/2013 Osteoporosis [M81.0] 02/21/2015 Lichen sclerosus et atrophicus [L90.0] 07/28/2016 Vitamin D deficiency [E55.9] 01/18/2017 H/O gastric bypass [Z98.84] 04/02/2017 Malabsorption of iron [K90.9] 04/02/2017 Iron deficiency anemia [D50.9] 04/02/2017 Other neutropenia (HCC) [D70.8] 01/17/2018 Age-related osteoporosis without current pathol*03/14/2019 Retinal vein occlusion of left eye [H34.8122] Hypertension [I10] Postmenopausal osteoporosis [M81.0] 08/01/2020 Low-tension glaucoma of both eyes, severe stage*10/15/2020 Cortical senile cataract of both eyes [H25.013] 10/15/2020 Choroidal nevus, 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 Normal [facility] Renal function 2000 panelon 04-20-2024 Albumin [Mass/Vol] 3.8 g/dL Low 3.9-4.9 [facility] Comment on above: Order Comment: Speci men Type: BLOOD SPECIMENOrdering Facility: [facility] Address: [address] [place] [address] Performed By: #### 2 [id number] ####[facility] [id number] [place] [address] [place] Anion gap [Moles/Vol] 11 mmol/L Normal 8-15 [facility] Comment on above: Order Comment: Speci men Type: BLOOD SPECIMENOrdering Facility: [facility] Address: [address] [place] [address] Performed By: #### 2 4362-6 ####[facility] LABIA [id number] [place] [address] [place] Calcium [Mass/Vol] 8.4 mg/dL Low 8.5-10.2 [facility] Comment on above: Order Comment: Speci men Type: BLOOD SPECIMENOrdering Facility: [facility] Address: [address] [place] [address] Performed By: #### 2 4362-6 ####[facility] LABCLIA [id number] [place] [address] [place] Chloride [Moles/Vol] 114 mmol/L High 98-107 [facility] Comment on above: Order Comment: Speci men Type: BLOOD SPECIMENOrdering Facility: [facility] Address: [address] [place] [address] Performed By: #### 2 4362-6 ####[facility] LABCLIA [id number] [place] [address] [place] CO2 [Moles/Vol] 18 mmol/L Low 22-30 [facility] Comment on above: Order Comment: Speci men Type: BLOOD SPECIMENOrdering Facility: [facility] Address: [address] [place] [address] Performed By: #### 2 4362-6 ####[facility] LABCLIA [id number] [place] [address] [place] Creatinine [Mass/Vol] 0.89 mg/dL Normal 0.58-0.96 [facility] Comment on above: Order Comment: Speci men Type: BLOOD SPECIMENOrdering Facility: [facility] Address: [address] [place] [address] Performed By: #### 2 4362-6 ####[facility] LABCLIA [id number] [place] [address] [place] Creatinine and Glomerular filtration rate.predicted panel (S/P/Bld) 73 mL/min/1.73m??? Normal >=60 [facility] Comment on above: Order Comment: Speci men Type: BLOOD SPECIMENOrdering Facility: [facility] Address: [address] [place] [address] Result Comment: Kayleigh mated Glomerular Filtration Rate (eGFR) is calculated using the 2020 CKD-EPI creatinine equation. This equation utilizes serum creatinine, sex, and age as parameters. The creatinine assay has traceable calibration to isotope dilution-mass spectrometry. Refer to KDIGO guidelines for clinical interpretation. In patients with unstable renal function, e.g. those with acute kidney injury, the eGFR may not accurately reflect actual GFR. Performed By: #### 2 4362-6 ####[facility] LABCLIA [id number] [place] [address] [place] Glucose [Mass/Vol] 126 mg/dL High 74-99 [facility] Comment on above: Order Comment: Estefania hinojosa Type: BLOOD SPECIMENOrdering Facility: [facility] Address: [address] [place] [address] Result Comment: The [place] Diabetes Association (ADA) provides guidance for cutoff values for fasting glucose and random glucose. The ADA defines fasting as no caloric intake for at least 8 hours. Fasting plasma glucose results between 100 to 125 mg/dL indicate increased risk for diabetes (prediabetes). Fasting plasma glucose results greater than or equal to 126 mg/dL meet the criteria for diagnosis of diabetes. In the absence of unequivocal hyperglycemia, results should be confirmed by repeat testing. In a patient with classic symptoms of hyperglycemia or hyperglycemic crisis, random plasma glucose results greater than or equal to 200 mg/dL meet the criteria for diagnosis of diabetes. Reference: Standards of Medical Care in Diabetes 2016, [place] [employer] Association. Diabetes Care. 2016.39(Suppl 1). Performed By: #### 2 4362-6 ####[facility] LABCLIA [id number] [place] [id number] [place] Phosphate [Mass/Vol] 2.3 mg/dL Low 2.7-4.8 [facility] Comment on above: Order Comment: Estefania hinojosa Type: BLOOD SPECIMENOrdering Facility: [facility] Address: [address] [place] [address] Performed By: #### 2 4362-6 ####[facility] LABCLIA [id number] [address] [address] [place] Potassium [Moles/Vol] 4.0 mmol/L Normal 3.7-5.1 [facility] Comment on above: Order Comment: Speci men Type: BLOOD SPECIMENOrdering Facility: [facility] Address: [address] [place] [address] Performed By: #### 2 4362-6 ####[facility] LABCLIA [id number] [place] [address] [place] Sodium [Moles/Vol] 143 mmol/L Normal 136-144 [facility] Comment on above: Order Comment: Speci men Type: BLOOD SPECIMENOrdering Facility: [facility] Address: [address] [place] [address] Performed By: #### 2 4362-6 ####[facility] LABIA [id number] [place] [address] [place] Urea nitrogen [Mass/Vol] 18 mg/dL Normal 7-21 [facility] Comment on above: Order Comment: Speci men Type: BLOOD SPECIMENOrdering Facility: [facility] Address: [address] [place] [address] Performed By: #### 2 4362-6 ####[facility] LABIA [id number] [address] [place] CNPNon [facility]20[facility] ----- OLDER,EMELY Anthony ([id number]) 1960 F Date Time Provider Department 04/05/24 EUGENE SANCHEZ [facility] During your visit today, we recorded the following information about you: Nellie Rm RN 04/05/2024 10:07 AM Cheng Casey with [employer] called in and wanted to check that they had the same spelling, sex, and birthday of the Pt. She said they received a letter from the Pts insurance that the Pts first name was spelled wrong. They told her that the Pts first name was spelled Trice not Emely. They just needed their records to match our and they did. Called and let Pt know she should call her insurance company and make sure that they get her name updated to the correct spelling. She also said she had been told they had her marked as a male. I told her they had also asked if she was a female. Allergies As of Date: 04/05/2024 (No Known Allergies) Date Reviewed: 03/14/2024 Reviewed by: Katherine Dowd MD - Fully Assessed Reason for Visit: Patient Question [1477] Prescriptions as of 04/05/2024 - busPIRone (BUSPAR) 15 mg tablet Take 1 tablet by mouth three times a day. - zolpidem (AMBIEN) 10 mg Take 1 tablet by mouth daily at bedtime for 90 days. - levothyroxine (SYNTHROID) 50 mcg tablet Take 1 tablet by mouth once daily. - venlafaxine (EFFEXOR) 75 mg tablet Take 1.5 tablets by mouth daily with breakfast AND 1.5 tablets daily with lunch AND 1 tablet daily with dinner. - gabapentin (NEURONTIN) 600 mg tablet Take 1 tablet by mouth three times a day for 180 days. - LORazepam (ATIVAN) 0.5 mg Take 1 tablet by mouth two times a day as needed for up to 90 days. - rizatriptan (MAXALT) 10 mg tablet Take 1 tablet (10 mg) by mouth as needed. FOR MIGRAINE HEADACHE (SEE ADMINISTRATION INSTRUCTIONS). Can repeat one time in 2 hours if needed. No more than 2 doses in 24 hours. Max 9 days a month. 36 tablets is a 90 day supply - topiramate (TOPAMAX) 100 mg tablet Take 1 tablet by mouth once daily AND 3 tablets daily at bedtime. - folic acid 1 mg tablet Take 1 tablet by mouth once daily. - ferrous sulfate 325 mg (65 mg iron) tablet Take 1 tablet by mouth two times a day with meals. - cyanocobalamin 1,000 mcg/mL Inject 1 mL intramuscularly once every month. - cyclobenzaprine (FLEXERIL) 10 mg tablet Take 1 tablet by mouth three times a day as needed for muscle spasm. - denosumab (PROLIA) 60 mg/mL Inject 1 mL subcutaneously once every 6 months. - pantoprazole DR (PROTONIX) 40 mg tablet Take 1 tablet by mouth two times a day. - dorzolamide-timolol (COSOPT) 22.3-6.8 mg/mL ophthalmic solution Use 1 Drop in both eyes every 12 hours. - latanoprost (XALATAN) 0.005 % ophthalmic solution Use 1 Drop in both eyes once daily. - metFORMIN (GLUCOPHAGE) 500 mg tablet Take 1 tablet by mouth daily with breakfast. - atorvastatin (LIPITOR) 20 mg tablet Take 20 mg by mouth daily at bedtime. - ondansetron (ZOFRAN) 4 mg tablet Take 1 tablet by mouth every 8 hours as needed for nausea/vomiting. - Syringe with Needle, Disp, 1 mL 25 gauge x 1 syrg 1 Device once every month. For vitamin B12 injection. - carboxymethylcellulose sodium (ARTIFICIAL TEARS, CMC, OPHTHALMIC) Use in eyes. PF PRN OU - cholecalciferol (VITAMIN D3) 50 mcg (2,000 unit) tablet Take 2,000 Units by mouth once daily. - folic acid/multivit-min/lutein (CENTRUM SILVER ORAL) Take by mouth. 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] 01/15/2003 Unspecified Essential Hypertension [I10] 02/19/2003 07/01/2009 Hypothyroidism [E03.9] 02/19/2003 Closed Colles' Fracture [S52.539A] 05/09/2003 07/01/2009 ILEUS ADYNAMIC [K56.0] 08/28/2005 07/01/2009 ANXIETY REACTION [F41.1] 08/31/2005 07/01/2009 Panic disorder without agoraphobia [F41.0] 12/03/2005 Enlargement of Lymph Nodes [R59.9] 06/12/2008 07/01/2009 Postsurgical Menopause [E89.40] 07/01/2009 S/P Gastric Bypass [Z98.84] 07/01/2009 Insomnia [G47.00] 09/29/2010 Migraine [G43.909] 09/29/2010 Climacteric [N95.1] 03/29/2012 05/08/2015 PUD (peptic ulcer disease) [K27.9] 01/04/2013 Osteoporosis [M81.0] 02/21/2015 Lichen sclerosus et atrophicus [L90.0] 07/28/2016 Vitamin D deficiency [E55.9] 01/18/2017 H/O gastric bypass [Z98.84] 04/02/2017 Malabsorption of iron [K90.9] 04/02/2017 Iron deficiency anemia [D50.9] 04/02/2017 Other neutropenia (HCC) [D70.8] 01/17/2018 Age-related osteoporosis without current pathol*03/14/2019 Retinal vein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 Hendrix to Dr. Ashley Blackman MD / Linnea Brumfield CNP [facility] New Site [address] [place] [address] Phone. [phone] / Fax. [phone] Amie Ibarra 12/24/2023 4:13 PM Signed Katerina Brian with [facility] called in with additional questions following receipt of the questionnaire Dr Blackman completed. Katerina inquired what the particular Nerve Blocks Dr Blackman anticipated Roma would need to be performed as she has had a right genicular nerve block and right lateral femoral cutaneous nerve block. She wants to know the specific names of the nerve block procedures. Does Dr Blackman anticipate Roma needing to have the nerve blocks every 3 months for the span of her life and does he have a cap on the number of nerve blocks he will perform on a patient in a year? Katerina is trying to calculate cost of each proposed procedure. Are steroids used in all nerve blocks or what numbing agents would be used? Is the right Genicular RFA specifically the RFA that Dr Blackman is identifying that Angleia will need every 6 months? Is there a lifetime cap of RFAs Dr Blackman will perform on a patient or a limit on how many can be performed in a year? Roma has had a Periferal Nerve Stimulator. If the Roma's pain worsens and does not continue to be relieved, does Dr Blackman anticipate the need for the SCS or the Periferal Nerve Stimulator? Routed to Dr Blackman to advise Amie Ibarra Marketing Support Specialist to Dr. Ashley Blackman MD / Linnea Brumfield CNP [facility] New Site [address] [place] [address] Phone. [phone] / Fax. [phone] Ashley Blackman MD 2023 12:50 PM Signed Responses below: 1. Katerina inquired what the particular Nerve Blocks Dr Blackman anticipated Roma would need to be performed as she has had a right genicular nerve block and right lateral femoral cutaneous nerve block. She wants to know the specific names of the nerve block procedures. Right knee - genicular nerve radiofrequency ablation (RFA), every 6 months Right lateral femoral cutaneous nerve block under ultrasound guidance, every [address] Blackman anticipate Roma needing to have the nerve blocks every 3 months for the span of her life and does he have a cap on the number of nerve blocks he will perform on a patient in a year? Katerina is trying to calculate cost of each proposed procedure. Yes, regular treatments as noted above. There are no cap on these treatments yearly or lifetime, but we recommend limiting nerve blocks to q3 months and RFA to q6 months. Cost can vary depending upon institution and insurance coverage/arrangements. Are steroids used in all nerve blocks or what numbing agents would be used? Steroids would be used with all of these procedures - typically 40mg Depo-Medrol per procedure. We would use Lidocaine and/or Bupivacaine as the local anesthetic. Is the right Genicular RFA specifically the RFA that Dr Blackman is identifying that Angelia will need every 6 months? Correct. Is there a lifetime cap of RFAs Dr Blackman will perform on a patient or a limit on how many can be performed in a year? See above. Roma has had a (more content not included)... Normal [facility] MR Lumbar spine WO contrasto n 12-07-2023 IMPRESSION: Spondylosis/spondylolisth esis at L4-5, with moderate spinal canal stenosis. Anatomic Lumbar Variant: None. L4-5 is considered the level of the iliac crest and assume there are 5 lumbar-type vertebrae. Laminating Machine Offbearer: PSCB Transcribe Date/Time: Dec 07 2023 8:46A Dictated by : EUGENE KABA MD This examination was interpreted and the report reviewed and electronically signed by: EUGENE KABA MD on Dec 07 2023 8:50AM [facility] DIVISION OF RADIOLOGY * * *Final Report* * * DATE OF EXAM: Dec 07 2023 8:20AM [facility] 0303 - MRI LUMBAR SPINE WO IVCON / PROCEDURE REASON: Spinal stenosis of lumbar region with neurogenic claudication * * * * Physician Interpretation * * * * EXAMINATION: MRI LUMBAR SPINE WO IVCON CLINICAL HISTORY: Spinal stenosis of lumbar region with neurogenic claudication TECHNIQUE: Routine lumbosacral spine MR protocol without gadolinium. MQ: [id number] COMPARISON: Lumbar spine radiographs 04/26/2023. RESULT: Counting reference: Lumbosacral junction. For the purposes of this report, L4-5 is considered the level of the iliac crest and assume there are 5 lumbar-type vertebrae. Anatomic variant: None. Localizer images: No additional findings. Alignment: Grade 1 anterolisthesis of L4 on L5 measuring 4 mm. Bone marrow signal/fracture: No evidence of pathologic marrow infiltration. No evidence of prior fracture. Conus: The conus is within normal limits of signal intensity and morphology. Paraspinal soft tissues: Paraspinal soft tissues are within normal limits. Lower thoracic spine: Visualized lower thoracic canal and foramina are patent. L1-L2: Canal and foramina are patent. L2-L3: Canal and foramina are patent L3-L4: Canal and foramina are patent L4-L5: Anterolisthesis of L4 on L5, ligamentum flavum/facet hypertrophy with small epidural fat, contributing to moderate canal stenosis and bilateral subarticular recess effacement greater on the right with abutment of the traversing L5 nerve roots. Mild bilateral neural foraminal narrowing. Bilateral facet joint fluid. Extraspinal synovial cysts projecting posteriorly from the bilateral facet joints. L5-S1: Canal and foramina are patent Sacrum and iliac wings: The visualized sacrum and iliac wings are within normal limits. DIVISION OF RADIOLOGY Provider, [facility] - 12/07/2023 * * *Final Report* * * DATE OF EXAM: Dec 07 2023 8:20AM [facility] [id number] - MRI LUMBAR SPINE WO IVCON / PROCEDURE REASON: Spinal stenosis of lumbar region with neurogenic claudication * * * * Physician Interpretation * * * * EXAMINATION: MRI LUMBAR SPINE WO IVCON CLINICAL HISTORY: Spinal stenosis of lumbar region with neurogenic claudication TECHNIQUE: Routine lumbosacral spine MR protocol without gadolinium. MQ: [id number] COMPARISON: Lumbar spine radiographs 04/26/2023. RESULT: Counting reference: Lumbosacral junction. For the purposes of this report, L4-5 is considered the level of the iliac crest and assume there are 5 lumbar-type vertebrae. Anatomic variant: None. Localizer images: No additional findings. Alignment: Grade 1 anterolisthesis of L4 on L5 measuring 4 mm. Bone marrow signal/fracture: No evidence of pathologic marrow infiltration. No evidence of prior fracture. Conus: The conus is within normal limits of signal intensity and morphology. Paraspinal soft tissues: Paraspinal soft tissues are within normal limits. Lower thoracic spine: Visualized lower thoracic canal and foramina are patent. L1-L2: Canal and foramina are patent. L2-L3: Canal and foramina are patent L3-L4: Canal and foramina are patent L4-L5: Anterolisthesis of L4 on L5, ligamentum flavum/facet hypertrophy with small epidural fat, contributing to moderate canal stenosis and bilateral subarticular recess effacement greater on the right with abutment of the traversing L5 nerve roots. Mild bilateral neural foraminal narrowing. Bilateral facet joint fluid. Extraspinal synovial cysts projecting posteriorly from the bilateral facet joints. L5-S1: Canal and foramina are patent Sacrum and iliac wings: The visualized sacrum and iliac wings are within normal limits. IMPRESSION IMPRESSION: Spondylosis/spondylolisth esis at L4-5, with moderate spinal canal stenosis. Anatomic Lumbar Variant: None. L4-5 is considered the level of the iliac crest and assume there are 5 lumbar-type vertebrae. Laminating Machine Offbearer: [facility] Transcribe Date/Time: Dec 07 2023 8:46A Dictated by : EUGENE KABA MD This examination was interpreted and the report reviewed and electronically signed by: EUGENE KABA MD on Dec 07 2023 8:50AM EST [facility] Radiology Study observation (narrative) [facility] MR Lumbar spine WO contrastO rdered By: [facility] Provider on 12-07-2023 [facility] PROTEIN CREATININE RATIOon 0 08-28-2023 Protein/Creatinine (U) [Mass ratio] 0.15 mg/mg High <0.15 mg/mg [facility] Protein/Creatinine (U) [Mass ratio]on 08-28-2023 Creatinine (U) [Mass/Vol] 84.5 mg/dL 20.0 - 300.0 mg/dL [facility] Protein (U) [Mass/Vol] 13 mg/dL 0 - 20 mg/dL [facility] Laboratory - Urinalysison Epithelial cells LM.HPF (Urine sed) [#/Area] Few Abnormal None Seen /HPF [facility] URINALYSIS, REFLEX MICROSCOP ICon 08-27-2023 Bacteria LM.HPF (Urine sed) [#/Area] Few Abnormal None Seen /HPF [facility] Bilirubin Ql (U) Negative Negative [facility] Clarity (Unsp spec) Clear Clear [facility] Color (U) Light Yellow Yellow [facility] Glucose Test strip (U) [Mass/Vol] Negative Trace, Negative [facility] Hemoglobin Ql (U) Negative Negative, Trace [facility] Ketones Ql (U) Negative Negative, Trace [facility] Leukocyte esterase Test strip Ql (U) 25 Ester/uL Negative, 25 Ester/uL [facility] Nitrite Ql (U) 2+ Abnormal Negative [facility] pH (U) 5.5 [pH] 5.0 - 8.0 [facility] Protein (U) [Mass/Vol] Negative Trace, Negative [facility] RBC LM.HPF (Urine sed) [#/Area] 0-3 /HPF 0-3 /HPF [facility] Specific gravity (U) [Rel density] 1.012 1.005 - 1.030 [facility] Urobilinogen Ql (U) Negative Negative [facility] WBC LM.HPF (Urine sed) [#/Area] 0-5 /HPF 0-5 /HPF [facility] GLUCOSE, BLOOD (POC)on 07-22 Glucose [Mass/Vol] 229 mg/dL Abnormal 74 - 99 mg/dL [facility] US OTHER-INJECTION (POC) FARZA[place] USE ONLYon 07-22-2023 [facility] Comprehensive metabolic 2000 panelon 07-19-2023 Albumin [Mass/Vol] 3.8 g/dL Low 3.9 - 4.9 g/dL [facility] ALP [Catalytic activity/Vol] 88 U/L 34 - 123 U/L [facility] ALT [Catalytic activity/Vol] 39 U/L High 7 - 38 U/L [facility] Anion gap [Moles/Vol] 8 mmol/L Low 9 - 18 mmol/L [facility] AST [Catalytic activity/Vol] 29 U/L 13 - 35 U/L [facility] Bilirubin [Mass/Vol] 0.2 mg/dL 0.2 - 1 .3 mg/dL [facility] Calcium [Mass/Vol] 9.0 mg/dL 8.5 - 10. 2 mg/dL [facility] Chloride [Moles/Vol] 111 mmol/L High 97 - 10 5 mmol/L [facility] CO2 [Moles/Vol] 22 mmol/L 22 - 30 mmol/L [facility] Creatinine [Mass/Vol] 1.11 mg/dL High 0.58 - 0.96 mg/dL [facility] Estimated Glomerular Filtration Rate 56 mL/min/1.73m Low >=60 mL/min/1.73 m [facility] Glucose [Mass/Vol] 104 mg/dL High 74 - 99 mg/dL [facility] Potassium [Moles/Vol] 4.4 mmol/L 3.7 - 5.1 mmol/L [facility] Protein [Mass/Vol] 5.8 g/dL Low 6.3 - 8.0 g/dL [facility] Sodium [Moles/Vol] 141 mmol/L 136 - 144 mmol/L [facility] Urea nitrogen [Mass/Vol] 19 mg/dL 7 - 21 mg/dL [facility] HbA1c (Bld)on 07-19-2023 Average glucose Estimated from glycated hemoglobin (Bld) [Mass/Vol] 131 mg/dL [facility] HbA1c (Bld) [Mass fraction] 6.2 % High 4.3 - 5.6 % [facility] GLUCOSE, BLOOD (POC)on 06-11 Glucose [Mass/Vol] 121 mg/dL Abnormal 74 - 99 mg/dL [facility] US OTHER-INJECTION (POC) [place]AR[place] USE ONLYon 06-11-2023 [facility] XR Lumbar spine 3 Viewson IMPRESSION: Overall findings unchanged. Laminating Machine Offbearer: [facility] Transcribe Date/Time: Apr 28 2023 4:28P Dictated by : FLACO BRADY MD This examination was interpreted and the report reviewed and electronically signed by: FLACO BRADY MD on Apr 28 2023 4:37PM [facility] DIVISION OF RADIOLOGY * * *Final Report* * * DATE OF EXAM: Apr 26 2023 11:22AM [facility] [id number] - XR LUMBAR 3V AP/LAT/L5-S1 / PROCEDURE REASON: Fall, subsequent encounter * * * * Physician Interpretation * * * * EXAM TITLE: XR LUMBAR 3V AP/LAT/L5-S1 EXAM DATE/TIME: 04/26/2023 11:22 AM COMPARISON: X-ray lumbar spine on 01/21/2023 CLINICAL INDICATION/HISTORY: Low back pain. TECHNIQUE: AP, lateral and cone down lateral views of the lumbar spine are presented. FINDINGS: There are five ric-ogi-iespitr lumbar vertebrae. No acute fractures demonstrated. There is grade 1 L4 on L5 anterolisthesis. Questionable L4-5 mild disc space narrowing. There is mild osteophyte formation, with facet arthrosis in the lower lumbar spine. DIVISION OF RADIOLOGY Provider, [facility] - 04/28/2023 * * *Final Report* * * DATE OF EXAM: Apr 26 2023 11:22AM WOX [id number] - XR LUMBAR 3V AP/LAT/L5-S1 / PROCEDURE REASON: Fall, subsequent encounter * * * * Physician Interpretation * * * * EXAM TITLE: XR LUMBAR 3V AP/LAT/L5-S1 EXAM DATE/TIME: 04/26/2023 11:22 AM COMPARISON: X-ray lumbar spine on 01/21/2023 CLINICAL INDICATION/HISTORY: Low back pain. TECHNIQUE: AP, lateral and cone down lateral views of the lumbar spine are presented. FINDINGS: There are five [id number] lumbar vertebrae. No acute fractures demonstrated. There is grade 1 L4 on L5 anterolisthesis. Questionable L4-5 mild disc space narrowing. There is mild osteophyte formation, with facet arthrosis in the lower lumbar spine. IMPRESSION IMPRESSION: Overall findings unchanged. Laminating Machine [facility] Transcribe Date/Time: Apr 28 2023 4:28P Dictated by : FLACO BRADY MD This examination was interpreted and the report reviewed and electronically signed by: FLACO BRADY MD on Apr 28 2023 4:37PM EST [facility] XR Lumbar spine 3 ViewsOrder ed By: Ccf Provider on 04-28-2023 [facility] XR Thoracic spine AP and Lat eralon 04-28-2023 IMPRESSION: No thoracic compression fracture. Laminating Machine Offbearer: [facility] Transcribe Date/Time: Apr 28 2023 9:09P Dictated by : KATHERINE YANCEY MD This examination was interpreted and the report reviewed and electronically signed by: KATHERINE YANCEY MD on Apr 28 2023 9:10PM [facility] DIVISION OF RADIOLOGY * * *Final Report* * * DATE OF EXAM: Apr 26 2023 11:22AM WOX 5262 - XR THORACIC 2V AP/LAT / PROCEDURE REASON: Fall, subsequent encounter * * * * Physician Interpretation * * * * EXAMINATION / TECHNIQUE: XR THORACIC 2V AP/LAT HISTORY: Pt feel x 1 week ago following a seizure. Right sided lower back pain. Fall, subsequent encounter COMPARISON: Chest radiograph dated 12/16/2015. RESULT: No thoracic compression fracture is identified. Sagittal alignment is maintained. There is mild to moderate multilevel degenerative disc disease. DIVISION OF RADIOLOGY Provider, [facility] - 04/28/2023 * * *Final Report* * * DATE OF EXAM: Apr 26 2023 11:22AM WOX 5262 - XR THORACIC 2V AP/LAT / PROCEDURE REASON: Fall, subsequent encounter * * * * Physician Interpretation * * * * EXAMINATION / TECHNIQUE: XR THORACIC 2V AP/LAT HISTORY: Pt feel x 1 week ago following a seizure. Right sided lower back pain. Fall, subsequent encounter COMPARISON: Chest radiograph dated 12/16/2015. RESULT: No thoracic compression fracture is identified. Sagittal alignment is maintained. There is mild to moderate multilevel degenerative disc disease. IMPRESSION IMPRESSION: No thoracic compression fracture. Laminating Machine [facility]be[facility] Transcribe Date/Time: Apr 28 2023 9:09P Dictated by : KATHERINE YANCEY MD This examination was interpreted and the report reviewed and electronically signed by: KATHERINE YANCEY MD on Apr 28 2023 9:10PM [facility] No Panel Informationon 04-26 Radiology Study observation (narrative) [facility] Absolute lymphocyte countOrd ered By: Ramon Alvarado on 04-19-2023 Lymphocytes Auto (Unsp spec) [#/Vol] 1.48 10*3/uL 0.83-4.51 [facility] Basophil percentageOrdered B y: Ramon Alvarado on 04-19-2023 Basophils/100 WBC (Bld) 0.9 % 0-1 [facility] Bilirubin [Mass/Vol] 0.20 mg/dL 0.20-1.00 [facility] Comment on above: For patients on eltr ombopag therapy, use of Dimension [place] TBIL is not recommended. Chloride [Moles/Vol] 116 mmol/L 98-107 [facility] Eosinophils/100 WBC (Bld) 9.1 % 0-5 [facility] Glucose [Mass/Vol] 77 mg/dL 74-106 [facility] Lactate [Moles/Vol] 1.0 mmol/L 0.4-2.0 [facility] Neutrophils (Bld) [#/Vol] 2.0 10*3/uL 2.0-7.7 [facility] Neutrophils/100 WBC (Bld) 44.9 % 47-70 [facility] Potassium [Moles/Vol] 3.9 mmol/L 3.5-5.1 [facility] Protein [Mass/Vol] 6.1 g/dL 6.4-8.2 [facility] Sodium [Moles/Vol] 142 mmol/L 136-145 [facility] WBC (Bld) [#/Vol] 4.4 10*3/uL 4.4-11.0 [facility] Blood erythrocytes count (nu mber/volume)Ordered By: Ramon Alvarado on 04-19-2023 RBC (Bld) [#/Vol] 3.43 10*6/uL 4.2-5.4 [facility] Blood hemoglobin measurement (mass/volume)Ordered By: Ramon Alvarado on 04-19-2023 Hemoglobin (Bld) [Mass/Vol] 10.2 g/dL 12.0-15.0 [facility] Blood lymphocytes/100 leukoc ytesOrdered By: Ramon Alvarado on 04-19-2023 Lymphocytes/100 WBC (Bld) 33.7 % 19-41 [facility] Blood monocytes/100 leukocyt esOrdered By: Ramon Alvarado on 04-19-2023 Monocytes/100 WBC (Bld) 10.9 % 0-10 [facility] Blood platelet mean volumeOr dered By: Ramon Alvarado on 04-19-2023 Platelet mean volume (Bld) [Entitic vol] 10.0 fL 6.2-12.0 [facility] Determination of erythrocyte mean corpuscular volume (MCV)Ordered By: Ramon Alvarado on 04-19-2023 MCV (RBC) [Entitic vol] 98.0 fL 81-99 [facility] Glucose Glucometer (BldC) [M ass/Vol]Ordered By: Ramon Alvarado on 04-19-2023 Glucose [Mass/Vol] 74 mg/dL 74-106 [facility] Comment on above: MANAGEMENT OF PATIEN T CARE PER NURSING PROTOCOL Hematocrit Auto (Bld) [Volum e fraction]Ordered By: Ramon Alvarado on 04-19-2023 Hematocrit (Bld) [Volume fraction] 33.6 % 37-47 [facility] Laboratory - Chemistry and C hemistry - challengeOrdered By: Ramon Alvarado on 04-19-2023 ALP [Catalytic activity/Vol] 103 U/L 45-117 [facility] ALT [Catalytic activity/Vol] 43 U/L 13-56 [facility] CO2 [Moles/Vol] 24.0 mmol/L 21.0-32.0 [facility] Globulin (S) [Mass/Vol] 2.7 g/dL 2.2-4.2 [facility] Lipase [Catalytic activity/Vol] 67 U/L 13-75 [facility] Comment on above: Please note:LIPASE r evised reference range effective 22. New Lipase methodology. Expected to produce lower values than the previous assay method. NEW Reference Range: 13 - 75 U/L Urea nitrogen/Creatinine [Mass ratio] 20.2 mg/mg 10-20 [facility] - Hematology and Cell countsOrdered By: Ramon Alvarado on 04-19-2023 Erythrocyte distribution width (RBC) [Entitic vol] 52.5 fL 35.1-43.9 [facility] Erythrocyte distribution width (RBC) [Ratio] 14.6 % 11.6-14.6 [facility] Immature granulocytes/100 WBC (Bld) 0.500 % 0.0-0.9 [facility] Comment on above: IG% - Immature Granu locytes (promyelocytes, myelocytes and metamyelocytes) > 1% indicates that a LEFT SHIFT is Present. MCH (RBC) [Entitic mass] 29.7 pg 27.0-32.0 [facility] Nucleated RBC/100 WBC (Bld) [Ratio] 0 % 0-5 [facility] Auto ([facility]BC) [Mass/Vol]Or dered By: Ramon Alvarado on 04-19-2023 MCHC (RBC) [Mass/Vol] 30.4 g/dL 32-36 [facility] No Panel InformationOrdered By: Ramon Alvarado on 04-19-2023 Estimated Creatinine Clearance Calc 41.78 ml/min [facility] Estimated GFR (MDRD) Amer 59 mL/min >60 [facility] Comment on above: GFR Calc Estimated GFR (MDRD) Non-Af Amer 49 mL/min >60 [facility] Comment on above: Non- GFR Calc Platelets bldOrdered By: Richa Alvarado on 04-19-2023 Platelets (Bld) [#/Vol] 283 10*3/uL 150-450 [facility] Serum or plasma albumin ro urement (mass/volume)Ordered By: Ramon Alvarado on 04-19-2023 Albumin [Mass/Vol] 3.4 g/dL 3.2-5.0 [facility] Serum or plasma albumin/glob ulin mass ratioOrdered By: Ramon Alvarado on 04-19-2023 Albumin/Globulin [Mass ratio] 1.3 {ratio} 0.9-2.4 [facility] Serum or plasma calcium ro urement (mass/volume)Ordered By: Ramon Alvarado on 04-19-2023 Calcium [Mass/Vol] 8.3 mg/dL 8.5-10.1 [facility] Serum or plasma creatinine m easurement (mass/volume)Ordered By: Ramon Alvarado on 04-19-2023 Creatinine [Mass/Vol] 1.19 mg/dL 0.55-1.02 [facility] Comment on above: The validity of the calculated GFR & GFRAA in patients over 70 years has not been determined. Clinical correlation is essential. Serum or plasma urea nitroge n measurement (mass/volume)Ordered By: Ramon Alvarado on 04-19-2023 Urea nitrogen [Mass/Vol] 24 mg/dL 7-18 [facility] Thin prep Papanicolaou smear with manual screeningOrdered By: Ramon Alvarado on 04-19-2023 Thin prep Papanicolaou smear with manual screening 33 U/L 15-37 [facility] Thin prep Papanicolaou smear with manual screening 2 5-15 [facility] MRI BRAIN WO IVCONon 023 [facility] VITAMIN D 25 HYDROXYon 03-16 25-hydroxyvitamin D3 [Mass/Vol] 33.4 ng/mL 31.0 - 80.0 ng/mL [facility] XR HAND GENERAL 3V PA/LAT/OB L LEFTon 03-10-2023 [facility] CHUNG SCREENINGon 02-01-2023 [facility] HISTORY PHYSICALon HISTORY PHYSICAL HNO ID: [id number] Author: Leandra Sauceda PA-C Service: ? Author Type: Physician Water Gas Operator Type: HANDP Filed: 01/22/2023 10:07 AM Note Text: Surgeon: Casper Medrano Type of surgery: Procedure(s) (LRB): ARTHROPLASTY CARPOMETACARPAL JOINTS (Left) Patient scheduled for surgery on 02/05/23 . Surgery Location: [facility] Diagnosis: Pre-op exam (primary encounter diagnosis) Transient ischemic attack Seizure-like activity (hcc) Hypertension, unspecified type Pure hypercholesterolemia Pud (peptic ulcer disease) Hypothyroidism due to medication Prediabetes Pulse 78[carotid pulse palpated[ Resp 18 Ht 5' 4 (1.63m) Wt 133 lb (60.3kg) BMI 22.82 kg/(m2). HANDP completed: 01/15/23 by Sybil Samaniego APRN.NEON INSTALLER Medical History Transient ischemic attack-Per chart review occurred 08/2021. Patient had slurred speech and facial droop. Patient still has slightly slurred speech on exam today. Seizure-like activity (hcc)-patient reports that she will have a seizure and will not have one for a long time and then randomly have another 1. Patient states that the last seizure was 1 week ago. Last seizure prior to that was 1 month ago. Seizures typically last for about 10 to 15 minutes. Patient is postictal for the rest of the day. Continue topiramate Hypertension, unspecified type-continue amlodipine Last 14 BP Last 14 Encounter BP Readings: Date: BP: 01/15/2023 96/68 11/26/2022 108/70 10/21/2022 108/64 10/14/2022 93/71 09/10/2022 114/78 08/27/2022 97/64 08/25/2022 110/90 07/17/2022 100/72 07/01/2022 106/75 03/11/2022 115/81 02/20/2022 104/72 02/17/2022 101/68 01/14/2022 102/64 01/14/2022 118/72 Pure hypercholesterolemia-cont inue atorvastatin Pud (peptic ulcer disease)- Denies abdominal pain, nausea, vomiting, diarrhea, constipation, hematochezia, melena. Continue pantoprazole Hypothyroidism due to medication -continue levothyroxine, TSH completed 01/22/2023 within normal limits Patient denies any fever, chills, recent infections or illness, chest pain, palpations, cough, SOB, LAZO, rashes. No history of ZAYRA or cardiac devices Covid Immunization Dates COVID-19 VACCINE (Series Information) Completed 07/17/2022 Imm Admin: COVID-19 booster vaccine, age 12+ yr, bivalent ([employer]) 01/14/2022 Imm Admin: COVID-19 original vaccine, age 12+ yr, monovalent ([employer] - SAWYER TOP) 08/25/2021 Imm Admin: COVID-19 original vaccine, full dose, monovalent (MODERNA) 11/13/2020 Imm Admin: COVID-19 original vaccine, full dose, monovalent (MODERNA) 10/17/2020 Imm Admin: COVID-19 original vaccine, full dose, monovalent (MODERNA) Social History Tobacco Use Smoking status: Never Smokeless tobacco: Never Vaping Use Vaping Use: Never used Substance Use Topics Alcohol use: No Drug use: No rizatriptan (MAXALT) 10 mg tablet Take 1 tablet by mouth as needed. FOR MIGRAINE HEADACHE (SEE ADMINISTRATION INSTRUCTIONS). Can repeat one time in 2 hours if needed. No more than 2 doses in 24 hours. Max 9 days a month. 36 tablets is a 90 day supply LORazepam (ATIVAN) 0.5 mg Take 1 tablet by mouth twice daily as needed for up to 30 days. For up to 30 days timolol maleate (TIMOPTIC) 0.5 % ophthalmic solution Use 1 Drop in both eyes every morning. latanoprost (XALATAN) 0.005 % ophthalmic solution Use 1 Drop in both eyes once daily. pantoprazole DR (PROTONIX) 40 mg tablet Take 1 tablet by mouth twice daily. levothyroxine (SYNTHROID) 50 mcg tablet Take 1 tablet by mouth once daily. cyanocobalamin 1,000 mcg/mL Inject 1 mL intramuscularly once every month. venlafaxine (EFFEXOR) 75 mg tablet Take 1 tablet by mouth three times daily with meals for 90 doses. zolpidem (AMBIEN) 10 mg Take 1 tablet by mouth daily at bedtime for 30 days. denosumab (PROLIA) 60 mg/mL Inject 1 mL subcutaneously once every 6 months. atorvastatin (LIPITOR) 20 mg tablet Take 1 tablet by mouth daily at bedtime. For cholesterol. topiramate (TOPAMAX) 100 mg tablet Take 3 tablets by mouth daily at bedtime. cyclobenzaprine (FLEXERIL) 10 mg tablet Take 1 tablet by mouth three times daily as needed for muscle spasm. gabapentin (NEURONTIN) 600 mg tablet Take 1 pill 3 times per day carboxymethylcellulose sodium (ARTIFICIAL TEARS, CMC, OPHTHALMIC) Use in eyes. PF PRN OU metFORMIN (GLUCOPHAGE) 500 mg tablet Take 1 tablet by mouth daily with breakfast. Syringe with Needle, Disp, 1 mL 25 gauge x 1 syrg 1 Device once every month. For vitamin B12 injection. amLODIPine (NORVASC) 5 mg tablet Take 1 tablet by mouth once daily. clobetasol (TEMOVATE) 0.05 % ointment Apply 1 application to affected area as directed. cholecalciferol (VITAMIN D3) 50 mcg (2,000 unit) tablet Take 2,000 Units by mouth once daily. folic acid/multivit-min/lutein (CENTRUM SILVER ORAL) Take by mouth. ASCORBIC ACID (VITAMIN C ORAL) Take 4,000 Units by mouth once daily. baclofen 2 %, bupivacaine (more content not included)... Normal [facility] No Panel InformationOrdered By: Ccf Provider on 01-22-2023 [facility] XR Knee - right 4 Viewson IMPRESSION: NO ACUTE OSSEOUS ABNORMALITY OTHER FINDINGS DESCRIBED Laminating Machine Offbearer: JUMA Transcribe Date/Time: Jan 22 2023 5:29P Dictated by : AMEYA LOCKE MD This examination was interpreted and the report reviewed and electronically signed by: AMEYA LOCKE MD on Jan 22 2023 5:30PM [facility] DIVISION OF RADIOLOGY * * *Final Report* * * DATE OF EXAM: Jan 21 2023 10:57AM WOX 5203 - XR KNEE 4V AP/PA BOTH+LAT/ALEKS RT / PROCEDURE REASON: Fall, initial encounter * * * * Physician Interpretation * * * * HISTORY (as given from clinical provider): Fall, initial encounter . Additional history provided by the performing technologist (if any): PT STS IN FOR PAIN TO LOWER BACK AND RT SHOULDER AND RT KNEE. SX TO RT KNEE 3 YRS AGO. NO SX TO OTHERS. TECHNIQUE: XR KNEE 4V AP/PA BOTH+LAT/ALEKS RT COMPARISON: 02/06/2021 RESULT: Mild patellofemoral compartment osteoarthritis. There is remote, healed fracture deformity of the distal femur transfixed by intramedullary ryan with locking screws partially seen. No other significant abnormality. DIVISION OF RADIOLOGY Provider, [facility] - 01/22/2023 * * *Final Report* * * DATE OF EXAM: Jan 21 2023 10:57AM WOX 5203 - XR KNEE 4V AP/PA BOTH+LAT/ALEKS RT / PROCEDURE REASON: Fall, initial encounter * * * * Physician Interpretation * * * * HISTORY (as given from clinical provider): Fall, initial encounter . Additional history provided by the performing technologist (if any): PT STS IN FOR PAIN TO LOWER BACK AND RT SHOULDER AND RT KNEE. SX TO RT KNEE 3 YRS AGO. NO SX TO OTHERS. TECHNIQUE: XR KNEE 4V AP/PA BOTH+LAT/ALEKS RT COMPARISON: 02/06/2021 RESULT: Mild patellofemoral compartment osteoarthritis. There is remote, healed fracture deformity of the distal femur transfixed by intramedullary ryan with locking screws partially seen. No other significant abnormality. IMPRESSION IMPRESSION: NO ACUTE OSSEOUS ABNORMALITY OTHER FINDINGS DESCRIBED Laminating Machine Offbearer: [facility] Transcribe Date/Time: Jan 22 2023 5:29P Dictated by : AMEYA LOCKE MD This examination was interpreted and the report reviewed and electronically signed by: AMEYA LOCKE MD on Jan 22 2023 5:30PM [facility] XR Lumbar spine 3 Viewson IMPRESSION: DEGENERATIVE DISC DISEASE (SPONDYLOSIS) Laminating Machine Offbearer: [facility] Transcribe Date/Time: Jan 22 2023 5:30P Dictated by : AMEYA LOCKE MD This examination was interpreted and the report reviewed and electronically signed by: AMEYA LOCKE MD on Jan 22 2023 5:30PM [facility] DIVISION OF RADIOLOGY * * *Final Report* * * DATE OF EXAM: Jan 21 2023 10:57AM WOX 5228 - XR LUMBAR 3V AP/LAT/L5-S1 / PROCEDURE REASON: Fall, initial encounter * * * * Physician Interpretation * * * * HISTORY (as given from clinical provider): Fall, initial encounter . Additional history provided by the performing technologist (if any): PT STS IN FOR PAIN TO LOWER BACK AND RT SHOULDER AND RT KNEE. SX TO RT KNEE 3 YRS AGO. NO SX TO OTHERS. TECHNIQUE: XR LUMBAR 3V AP/LAT/L5-S1 COMPARISON: None RESULT: Counting reference: Lumbosacral junction. For the purposes of this report, L4-5 is considered the level of the iliac crest and there are 5 lumbar-type vertebrae. Anatomic Variants: None. Grade 1 anterolisthesis of L4 on L5. Mild to moderate degenerative disc disease at L4-5. The other disc heights are normal. Degenerative facet changes in the lower lumbar spine. No fractures. Surgical clips in the left side of the abdomen. No other significant abnormality. DIVISION OF RADIOLOGY Provider, Gael Rodrigues - 01/22/2023 * * *Final Report* * * DATE OF EXAM: Jan 21 2023 10:57AM WOX 5228 - XR LUMBAR 3V AP/LAT/L5-S1 / PROCEDURE REASON: Fall, initial encounter * * * * Physician Interpretation * * * * HISTORY (as given from clinical provider): Fall, initial encounter . Additional history provided by the performing technologist (if any): PT STS IN FOR PAIN TO LOWER BACK AND RT SHOULDER AND RT KNEE. SX TO RT KNEE 3 YRS AGO. NO SX TO OTHERS. TECHNIQUE: XR LUMBAR 3V AP/LAT/L5-S1 COMPARISON: None RESULT: Counting reference: Lumbosacral junction. For the purposes of this report, L4-5 is considered the level of the iliac crest and there are 5 lumbar-type vertebrae. Anatomic Variants: None. Grade 1 anterolisthesis of L4 on L5. Mild to moderate degenerative disc disease at L4-5. The other disc heights are normal. Degenerative facet changes in the lower lumbar spine. No fractures. Surgical clips in the left side of the abdomen. No other significant abnormality. IMPRESSION IMPRESSION: DEGENERATIVE DISC DISEASE (SPONDYLOSIS) Laminating Machine Offbearer: [facility] Transcribe Date/Time: Jan 22 2023 5:30P Dictated by : AMEYA LOCKE MD This examination was interpreted and the report reviewed and electronically signed by: AMEYA LOCKE MD on Jan 22 2023 5:30PM EST [facility] XR Shoulder - right 3 Viewso n 01-22-2023 IMPRESSION: NO ACUTE BONY ABNORMALITY MILD ACROMIOCLAVICULAR JOINT DEGENERATIVE CHANGE Laminating Machine Offbearer: [facility] Transcribe Date/Time: Jan 22 2023 5:30P Dictated by : DANELLE VELA MD This examination was interpreted and the report reviewed and electronically signed by: DANELLE VELA MD on Jan 22 2023 5:30PM [facility] DIVISION OF RADIOLOGY * * *Final Report* * * DATE OF EXAM: Jan 21 2023 10:56AM WOX 5253 - XR SHLDR >/=3V AP/BUDYD AP/OTHR RT / PROCEDURE REASON: Fall, initial encounter * * * * Physician Interpretation * * * * HISTORY: Fall, initial encounter TECHNIQUE: 3 views right shoulder COMPARISON: None. RESULT: There is no acute fracture or dislocation. Normal glenohumeral joint space. Normal acromiohumeral interval. Mild acromioclavicular joint degenerative change. DIVISION OF RADIOLOGY Provider, [facility] - 01/22/2023 * * *Final Report* * * DATE OF EXAM: Jan 21 2023 10:56AM WOX 5253 - XR SHLDR >/=3V AP/BUDDY AP/OTHR RT / PROCEDURE REASON: Fall, initial encounter * * * * Physician Interpretation * * * * HISTORY: Fall, initial encounter TECHNIQUE: 3 views right shoulder COMPARISON: None. RESULT: There is no acute fracture or dislocation. Normal glenohumeral joint space. Normal acromiohumeral interval. Mild acromioclavicular joint degenerative change. IMPRESSION IMPRESSION: NO ACUTE BONY ABNORMALITY MILD ACROMIOCLAVICULAR JOINT DEGENERATIVE CHANGE Laminating Machine Offbearer: [facility] Transcribe Date/Time: Jan 22 2023 5:30P Dictated by : DANELLE VELA MD This examination was interpreted and the report reviewed and electronically signed by: DANELLE VELA MD on Jan 22 2023 5:30PM EST [facility] No Panel Informationon 01-21 Radiology Study observation (narrative) [facility] GLUCOSE, BLOOD (POC)on 11-26 Glucose [Mass/Vol] 92 mg/dL 74 - 99 mg/dL [facility] KNEE-INJECTION RT (POC) O RI USE ONLYon 11-26-2022 [facility] US HIP RT (POC) FARZANA USE ONLY on 08-27-2022 [facility] Basic metabolic 2000 panelon 07-28-2022 Anion gap [Moles/Vol] 11 mmol/L 9 - 18 mmol/L [facility] Calcium [Mass/Vol] 9.5 mg/dL 8.5 - 10. 2 mg/dL [facility] Chloride [Moles/Vol] 108 mmol/L High 97 - 10 5 mmol/L [facility] CO2 [Moles/Vol] 22 mmol/L 22 - 30 mmol/L [facility] Creatinine [Mass/Vol] 1.42 mg/dL High 0.58 - 0.96 mg/dL [facility] Estimated Glomerular Filtration Rate 42 mL/min/1.73m Low >=60 mL/min/1.73 m [facility] Glucose [Mass/Vol] 82 mg/dL 74 - 99 mg/dL [facility] Potassium [Moles/Vol] 3.9 mmol/L 3.7 - 5.1 mmol/L [facility] Sodium [Moles/Vol] 141 mmol/L 136 - 144 mmol/L [facility] Urea nitrogen [Mass/Vol] 22 mg/dL High 7 - 21 mg/dL [facility] GLUCOSE, BLOOD (POC)on 07-01 Glucose [Mass/Vol] 91 mg/dL 74 - 99 mg/dL [facility] GLUCOSE, BLOOD (POC)on 03-11 Glucose [Mass/Vol] 102 mg/dL Abnormal 74 - 99 mg/dL [facility] No Panel Informationon 02-20 IMPRESSION: Findings are suggestive of first carpometacarpal joint subluxation/dislocation. Degenerative changes as described above. Laminating Machine Offbearer: [facility] Transcribe Date/Time: Feb 20 2022 11:44A Dictated by : FLACO BRADY MD This examination was interpreted and the report reviewed and electronically signed by: FLACO BRADY MD on Feb 20 2022 11:51AM EST [email or web address]_NOT_U SE_DIVISION OF RADIOLOGY Radiology Study observation (narrative) [facility] No Panel InformationOrdered By: Ccf Provider on 02-20-2022 [facility] XR Finger - left AP and Late ral and obliqueon 02-20-2022 * * *Final Report* * * DATE OF EXAM: Feb 20 2022 11:35AM WOX [id number] - XR DIGIT 3V FRONTAL/LAT/OBL LT / PROCEDURE REASON: Pain of left thumb * * * * Physician Interpretation * * * * EXAM TITLE: XR WRIST 3V PA/LAT/OBL LT, XR DIGIT 3V FRONTAL/LAT/OBL LT EXAM DATE/TIME: 02/20/2022 11:35 AM COMPARISON: None. CLINICAL INDICATION/HISTORY: Wrist pain. TECHNIQUE: PA, lateral, oblique and scaphoid views of left wrist are presented. AP, oblique and lateral views of the left first digit are also presented. FINDINGS: No acute fracture seen. There appears be first carpometacarpal joint subluxation, with osteophyte formation and cystic formation Questionable Triscaphe joint space narrowing. There is negative ulnar variance. The mineralization of the bones is normal. There is no significant soft tissue swelling. [id number]_U _DIVISION OF RADIOLOGY Provider, Gael Riosfrank [facility] - 02/20/2022 * * *Final Report* * * DATE OF EXAM: Feb 20 2022 11:35AM WOX 5318 - XR DIGIT 3V FRONTAL/LAT/OBL LT / PROCEDURE REASON: Pain of left thumb * * * * Physician Interpretation * * * * EXAM TITLE: XR WRIST 3V PA/LAT/OBL LT, XR DIGIT 3V FRONTAL/LAT/OBL LT EXAM DATE/TIME: 02/20/2022 11:35 AM COMPARISON: None. CLINICAL INDICATION/HISTORY: Wrist pain. TECHNIQUE: PA, lateral, oblique and scaphoid views of left wrist are presented. AP, oblique and lateral views of the left first digit are also presented. FINDINGS: No acute fracture seen. There appears be first carpometacarpal joint subluxation, with osteophyte formation and cystic formation Questionable Triscaphe joint space narrowing. There is negative ulnar variance. The mineralization of the bones is normal. There is no significant soft tissue swelling. IMPRESSION IMPRESSION: Findings are suggestive of first carpometacarpal joint subluxation/dislocation. Degenerative changes as described above. Laminating Machine Offbearer: JUMA Transcribe Date/Time: Feb 20 2022 11:44A Dictated by : FLACO BRADY MD This examination was interpreted and the report reviewed and electronically signed by: FLACO BRADY MD on Feb 20 2022 11:51AM EST [facility] XR Pelvis and Hip - right AP and Lateral frogon 02-20-2022 IMPRESSION: No acute radiographic abnormalities in the right hip. Mild degenerative changes as described above Laminating Machine Offbearer: [facility] Transcribe Date/Time: Feb 20 2022 11:51A Dictated by : FLACO BRADY MD This examination was interpreted and the report reviewed and electronically signed by: FLACO BRADY MD on Feb 20 2022 11:55AM EST [email or web address]_U _DIVISION OF RADIOLOGY * * *Final Report* * * DATE OF EXAM: Feb 20 2022 11:35AM WOX 5352 - XR HIP 3V PELV+ AP/LAT RT / PROCEDURE REASON: Right hip pain * * * * Physician Interpretation * * * * EXAM TITLE: XR HIP 3V PELV+ AP/LAT RT EXAM DATE/TIME: 02/20/2022 11:35 AM COMPARISON: None. CLINICAL INDICATION/HISTORY: Fall. Right hip pain. TECHNIQUE: AP and frog lateral views of the right hip and AP view of the pelvis are presented. FINDINGS: No acute fractures or subluxations are noted in the right hip. The right hip joint space is maintained. Mild cyst formation and bony stenosis along the acetabulum, likely degenerative. The visualized pelvic bones are intact. Mild bony sclerosis along the right SI joint. There is a partially visualized intramedullary ryan in the right femur with 2 surgical screws. The mineralization of the bones is normal. There is no significant soft tissue swelling. [id number]_U SE_DIVISION OF RADIOLOGY Provider, [facility] - 02/20/2022 * * *Final Report* * * DATE OF EXAM: Feb 20 2022 11:35AM WOX 5352 - XR HIP 3V PELV+ AP/LAT RT / PROCEDURE REASON: Right hip pain * * * * Physician Interpretation * * * * EXAM TITLE: XR HIP 3V PELV+ AP/LAT RT EXAM DATE/TIME: 02/20/2022 11:35 AM COMPARISON: None. CLINICAL INDICATION/HISTORY: Fall. Right hip pain. TECHNIQUE: AP and frog lateral views of the right hip and AP view of the pelvis are presented. FINDINGS: No acute fractures or subluxations are noted in the right hip. The right hip joint space is maintained. Mild cyst formation and bony stenosis along the acetabulum, likely degenerative. The visualized pelvic bones are intact. Mild bony sclerosis along the right SI joint. There is a partially visualized intramedullary ryan in the right femur with 2 surgical screws. The mineralization of the bones is normal. There is no significant soft tissue swelling. IMPRESSION IMPRESSION: No acute radiographic abnormalities in the right hip. Mild degenerative changes as described above Laminating Machine Offbearer: [facility] Transcribe Date/Time: Feb 20 2022 11:51A Dictated by : FLACO BRADY MD This examination was interpreted and the report reviewed and electronically signed by: FLACO BRADY MD on Feb 20 2022 11:55AM [facility] XR Wrist - left PA and Later al and Obliqueon 02-20-2022 * * *Final Report* * * DATE OF EXAM: Feb 20 2022 11:35AM WOX 5270 - XR WRIST 3V PA/LAT/OBL LT / PROCEDURE REASON: Left wrist pain * * * * Physician Interpretation * * * * EXAM TITLE: XR WRIST 3V PA/LAT/OBL LT, XR DIGIT 3V FRONTAL/LAT/OBL LT EXAM DATE/TIME: 02/20/2022 11:35 AM COMPARISON: None. CLINICAL INDICATION/HISTORY: Wrist pain. TECHNIQUE: PA, lateral, oblique and scaphoid views of left wrist are presented. AP, oblique and lateral views of the left first digit are also presented. FINDINGS: No acute fracture seen. There appears be first carpometacarpal joint subluxation, with osteophyte formation and cystic formation Questionable Triscaphe joint space narrowing. There is negative ulnar variance. The mineralization of the bones is normal. There is no significant soft tissue swelling. [id number]_U SE_DIVISION OF RADIOLOGY Provider, [facility] - 02/20/2022 * * *Final Report* * * DATE OF EXAM: Feb 20 2022 11:35AM WOX 5270 - XR WRIST 3V PA/LAT/OBL LT / PROCEDURE REASON: Left wrist pain * * * * Physician Interpretation * * * * EXAM TITLE: XR WRIST 3V PA/LAT/OBL LT, XR DIGIT 3V FRONTAL/LAT/OBL LT EXAM DATE/TIME: 02/20/2022 11:35 AM COMPARISON: None. CLINICAL INDICATION/HISTORY: Wrist pain. TECHNIQUE: PA, lateral, oblique and scaphoid views of left wrist are presented. AP, oblique and lateral views of the left first digit are also presented. FINDINGS: No acute fracture seen. There appears be first carpometacarpal joint subluxation, with osteophyte formation and cystic formation Questionable Triscaphe joint space narrowing. There is negative ulnar variance. The mineralization of the bones is normal. There is no significant soft tissue swelling. IMPRESSION IMPRESSION: Findings are suggestive of first carpometacarpal joint subluxation/dislocation. Degenerative changes as described above. Laminating Machine Offbearer: [facility] Transcribe Date/Time: Feb 20 2022 11:44A Dictated by : FLACO BRADY MD This examination was interpreted and the report reviewed and electronically signed by: FLACO BRADY MD on Feb 20 2022 11:51AM EST [facility] CHUNG SCREENINGon 01-09-2022 [facility] .GFRon 04-27-2020 GFR 13 ml/min/1.73sqm Normal [facility] Comment on above: Result Comment: GFR Population mean for , Non- Americans Ages 20-29 = 116 mL/min/1.73 sq.m. Ages 30-39 = 107 mL/min/1.73 sq.m. Ages 40-49 = 99 mL/min/1.73 sq.m. Ages 50-59 = 93 mL/min/1.73 sq.m. Ages 60-69 = 85 mL/min/1.73 sq.m. Ages 70+ = 75 mL/min/1.73 sq.m. Chronic Kidney Disease: Less than 60 mL/min/1.73 square meters End Stage Renal Disease: Less than 15 mL/min/1.73 square meters Performed By: #### C BC, ADIFF, ANEU, CMP, GFR #### [place] [address] GFR Non- 11 ml/min/1.73sqm Normal [facility] ([place]) Comment on above: Result Comment: GFR Population mean for , Non- Americans Ages 20-29 = 116 mL/min/1.73 sq.m. Ages 30-39 = 107 mL/min/1.73 sq.m. Ages 40-49 = 99 mL/min/1.73 sq.m. Ages 50-59 = 93 mL/min/1.73 sq.m. Ages 60-69 = 85 mL/min/1.73 sq.m. Ages 70+ = 75 mL/min/1.73 sq.m. Chronic Kidney Disease: Less than 60 mL/min/1.73 square meters End Stage Renal Disease: Less than 15 mL/min/1.73 square meters Performed By: #### C BC, ADIFF, ANEU, CMP, GFR #### [address] [address] .Manual Diffon 04-27-2020 Bands 5.0 % Normal 0.0-5.0 [facility] [place] Comment on above: Performed By: #### C BC, ADIFF, ANEU, CMP, GFR #### [address] [address] Basophil %, Manual 0.0 % Normal 0.0-2.5 [facility] ([place]) Comment on above: Performed By: #### C BC, ADIFF, ANEU, CMP, GFR #### [address] [address] Basophil, Abs Manual 0.00 10 3/mcL Normal 0.00-0.27 A [facility] ([place]) Comment on above: Performed By: #### C BC, ADIFF, ANEU, CMP, GFR #### [address] [address] Cells Counted 100 Normal [facility] [place] Comment on above: Performed By: #### C BC, ADIFF, ANEU, CMP, GFR #### [address] [address] Eosinophil %, Manual 8.0 % High 0.0-6.0 [facility] ([place] Comment on above: Performed By: #### C BC, ADIFF, ANEU, CMP, GFR #### [address] [address] Eosinophil, Abs Manual 0.89 10 3/mcL High 0.00-0.65 [facility] [place] Comment on above: Performed By: #### C BC, ADIFF, ANEU, CMP, GFR #### [address] [address] Lymphocyte %, Manual 7.0 % Low 20.0-40.0 [facility] ([place] Comment on above: Performed By: #### C BC, ADIFF, ANEU, CMP, GFR #### [address] [address] Lymphocyte, Abs Manual 0.78 10 3/mcL Low 0.90-4.32 [facility] [place] Comment on above: Performed By: #### C BC, ADIFF, ANEU, CMP, GFR #### [address] [address] Metamyelocyte 1.0 % Normal [facility] [place] Comment on above: Performed By: #### C BC, ADIFF, ANEU, CMP, GFR #### [place] [address] Monocyte %, Manual 3.0 % Normal 2.0-13.0 [facility] ([place] Comment on above: Performed By: #### C BC, ADIFF, ANEU, CMP, GFR #### [place] [id number] Monocyte, Abs Manual 0.33 10 3/mcL Normal 0.09-1.40 A [facility] ([place] Comment on above: Performed By: #### C BC, ADIFF, ANEU, CMP, GFR #### [place] [address] Myelocyte 1.0 % Normal [facility] [place] Comment on above: Performed By: #### C BC, ADIFF, ANEU, CMP, GFR #### [place] [address] Neutrophil %, Manual 75.0 % Normal 50.0-75.0 [facility] ([place] Comment on above: Performed By: #### C BC, ADIFF, ANEU, CMP, GFR #### [place] [id number] Neutrophil, Abs Manual 8.89 10 3/mcL High 2.25-8.10 [facility] [place] Comment on above: Performed By: #### C BC, ADIFF, ANEU, CMP, GFR #### [address] [address] .Morphon 04-27-2020 Platelet Estimate Normal Normal [facility] [place] Comment on above: Performed By: #### C BC, ADIFF, ANEU, CMP, GFR #### [place] [address] RBC morphology finding Nom (Bld) Normal Normal [facility] [place] Comment on above: Performed By: #### C BC, ADIFF, ANEU, CMP, GFR #### [place] [id number] CBCon 04-27-2020 Erythrocyte distribution width (RBC) [Ratio] 14.9 % Normal 11.5-15.5 [facility] [place] Comment on above: Performed By: #### C BC, ADIFF, ANEU, CMP, GFR #### [place] [address] Hematocrit (Bld) [Volume fraction] 24.0 % Low 34.0-46.0 [facility] [place] Comment on above: Performed By: #### C BC, ADIFF, ANEU, CMP, GFR #### [place] [address] Hgb 8.1 G/dL Low 12.0-16.0 [facility] [place] Comment on above: Performed By: #### C BC, ADIFF, ANEU, CMP, GFR #### [place] [address] MCH (RBC) [Entitic mass] 31.2 pg Normal 27.0-33.0 [facility] [place] Comment on above: Performed By: #### C BC, ADIFF, ANEU, CMP, GFR #### [place] [address] MCHC 33.5 G/dL Normal 32.0-36.0 [facility] [place] Comment on above: Performed By: #### C BC, ADIFF, ANEU, CMP, GFR #### [place] [address] MCV (RBC) [Entitic vol] 93.1 fL Normal 80.0-99.0 [facility] [place] Comment on above: Performed By: #### C BC, ADIFF, ANEU, CMP, GFR #### [place] [id number] Platelet 208 10 3/mcL Normal 150-450 [facility] [place] Comment on above: Performed By: #### C BC, ADIFF, ANEU, CMP, GFR #### [place] [address] Platelet mean volume (Bld) [Entitic vol] 7.8 fL Normal 6.6-10.5 [facility] [place] Comment on above: Performed By: #### C BC, ADIFF, ANEU, CMP, GFR #### [place] [id number] RBC 2.58 10 6/mcL Low 4.10-5.30 [facility] [place] Comment on above: Performed By: #### C BC, ADIFF, ANEU, CMP, GFR #### [place] [id number] WBC 11.10 10 3/mcL High 4.50-10.80 [facility] [place] Comment on above: Performed By: #### C BC, ADIFF, ANEU, CMP, GFR #### [place] [address] CMPon 04-27-2020 Albumin Level 1.9 G/dL Low 3.2-4.8 [facility] [place] Comment on above: Performed By: #### C BC, ADIFF, ANEU, CMP, GFR #### [place] [address] Albumin/Globulin [Mass ratio] 1.0 {ratio} Normal 0.9-1.6 [facility] [place] Comment on above: Performed By: #### C BC, ADIFF, ANEU, CMP, GFR #### [place] [address] ALP [Catalytic activity/Vol] 211 U/L High 38-126 [facility] [place] Comment on above: Performed By: #### C BC, ADIFF, ANEU, CMP, GFR #### [place] [id number] ALT [Catalytic activity/Vol] 117 U/L High 10-49 [facility] [place] Comment on above: Performed By: #### C BC, ADIFF, ANEU, CMP, GFR #### [facility] [address] [place], [place] [address] AST [Catalytic activity/Vol] 29 U/L Normal 8-34 [facility] [place] Comment on above: Performed By: #### C BC, ADIFF, ANEU, CMP, GFR #### [address] [address] Bili Total 0.50 mg/dL Normal 0.20-1.20 [facility] [place] Comment on above: Result Comment: Use of this assay is not recommended for patients undergoing treatment with eltrombopag due to the potential for falsely elevated results. Performed By: #### C BC, ADIFF, ANEU, CMP, GFR #### [address] [address] BUN/Creatinine Ratio 7.5 ratio Low 10.0-22.0 [facility] ([place] Comment on above: Performed By: #### C BC, ADIFF, ANEU, CMP, GFR #### [address] [address] Calcium [Mass/Vol] 7.6 mg/dL Low 8.7-10.4 [facility] ([place] Comment on above: Result Comment: No te - New Reference Range in effect 20 Performed By: #### C BC, ADIFF, ANEU, CMP, GFR #### [address] [address] Chloride [Moles/Vol] 102 mmol/L Normal 98-110 [facility] ([place] Comment on above: Performed By: #### C BC, ADIFF, ANEU, CMP, GFR #### [address] [address] CO2 [Moles/Vol] 25 mmol/L Normal 22-32 [facility] [place] Comment on above: Performed By: #### C BC, ADIFF, ANEU, CMP, GFR #### [address] [address] Creatinine [Mass/Vol] 4.16 mg/dL High 0.50-1.20 [facility] ([place] Comment on above: Performed By: #### C BC, ADIFF, ANEU, CMP, GFR #### [address] [address] Electrolyte Balance 12.0 mEq/L Normal 4.0-15.0 [facility] ([place] Comment on above: Performed By: #### C BC, ADIFF, ANEU, CMP, GFR #### [address] [address] Globulin 2.0 G/dL Normal 1.5-3.8 [facility] [place] Comment on above: Performed By: #### C BC, ADIFF, ANEU, CMP, GFR #### [address] [address] Glucose [Mass/Vol] 94 mg/dL Normal 82-115 [facility] ([place] Comment on above: Performed By: #### C BC, ADIFF, ANEU, CMP, GFR #### [address] [address] Potassium [Moles/Vol] 4.0 mmol/L Normal 3.5-5.0 [facility] ([place] Comment on above: Result Comment: Spec imen slightly hemolyzed. Performed By: #### C BC, ADIFF, ANEU, CMP, GFR #### [address] [address] Sodium [Moles/Vol] 139 mmol/L Normal 136-145 [facility] ([place] Comment on above: Performed By: #### C BC, ADIFF, ANEU, CMP, GFR #### [address] [address] Total Protein 3.9 G/dL Low 5.7-8.2 [facility] [place] Comment on above: Result Comment: No te - New Reference Range in effect 20 Performed By: #### C BC, ADIFF, ANEU, CMP, GFR #### [address] [address] Urea nitrogen [Mass/Vol] 31.0 mg/dL High 8.0-22.0 [facility] [place] Comment on above: Performed By: #### C BC, ADIFF, ANEU, CMP, GFR #### [address] [address] XR FEMUR MINIMUM 2 VIEWS RIG HTon 04-27-2020 XR FEMUR MINIMUM 2 VIEWS RIGHT ORIGINAL XR FEMUR MINIMUM 2 VIEWS RIGHT CLINICAL STATEMENT: eval hardware. COMPARISON: None FINDINGS: RIGHT femur intramedullary ryan is present extending from the level of the lesser trochanter to the intercondylar region. There is a comminuted fracture of the supracondylar region of the RIGHT femur. There is evidence of early healing with fracture lines are visible. There are lucent defects in the shaft of the mid RIGHT femur indicating site of previous fixation screws. Overall alignment appears satisfactory. There is no loosening or evidence of hardware malfunction. IMPRESSION: RIGHT femur intramedullary ryan in place with evidence of healing at the comminuted supracondylar fracture of the RIGHT femur. Interpreted By: Toro Anguiano MD Preliminary Report By: Toro Anguiano MD Electronically Signed By: Toro Anguiano MD Dictated Date: 04/27/2020 2:57:23 AM Prelim Date: 04/27/2020 2:57:23 AM Sign Date: 04/27/2020 3:00:21 AM Ordering Provider:[facility] ([place] .Auto Diffon 04-26-2020 Basophil, Absolute 0.10 10 3/mcL Normal 0.00-0.27 [facility] ([place]) Comment on above: Performed By: #### C BC, ADIFF, ANEU, CMP, GFR #### [address] [address] Basophils/100 WBC (Bld) 0.5 % Normal 0.0-2.5 [facility] [place] Comment on above: Performed By: #### C BC, ADIFF, ANEU, CMP, GFR #### [address] [address] Eosinophil, Absolute 1.70 10 3/mcL High 0.00-0.65 A [facility] ([place] Comment on above: Performed By: #### C BC, ADIFF, ANEU, CMP, GFR #### [address] [address] Eosinophils/100 WBC (Bld) 13.6 % High 0.0-6.0 [facility] ([place] Comment on above: Performed By: #### C BC, ADIFF, ANEU, CMP, GFR #### [address] [address] Lymphocyte, Absolute 1.20 10 3/mcL Normal 0.90-4.32 A [facility] ([place]) Comment on above: Performed By: #### C BC, ADIFF, ANEU, CMP, GFR #### [address] [address] Lymphocytes/100 WBC (Bld) 9.1 % Low 20.0-40.0 [facility] ([place] Comment on above: Performed By: #### C BC, ADIFF, ANEU, CMP, GFR #### [address] [address] Monocyte, Absolute 0.80 10 3/mcL Normal 0.09-1.40 [facility] ([place] Comment on above: Performed By: #### C BC, ADIFF, ANEU, CMP, GFR #### [address] [address] Monocytes/100 WBC (Bld) 6.7 % Normal 2.0-13.0 [facility] ([place] Comment on above: Performed By: #### C BC, ADIFF, ANEU, CMP, GFR #### [address] [address] Neutrophils/100 WBC (Bld) 70.1 % Normal 50.0-75.0 [facility] ([place] Comment on above: Performed By: #### C BC, ADIFF, ANEU, CMP, GFR #### [address] [address] .GFRon 04-26-2020 GFR 10 ml/min/1.73sqm Normal [facility] ([place] Comment on above: Result Comment: GFR Population mean for , Non- Americans Ages 20-29 = 116 mL/min/1.73 sq.m. Ages 30-39 = 107 mL/min/1.73 sq.m. Ages 40-49 = 99 mL/min/1.73 sq.m. Ages 50-59 = 93 mL/min/1.73 sq.m. Ages 60-69 = 85 mL/min/1.73 sq.m. Ages 70+ = 75 mL/min/1.73 sq.m. Chronic Kidney Disease: Less than 60 mL/min/1.73 square meters End Stage Renal Disease: Less than 15 mL/min/1.73 square meters Performed By: #### C BC, ADIFF, ANEU, CMP, GFR #### [address] [address] GFR Non- 8 ml/min/1.73sqm Normal [facility] [place] Comment on above: Result Comment: GFR Population mean for , Non- Americans Ages 20-29 = 116 mL/min/1.73 sq.m. Ages 30-39 = 107 mL/min/1.73 sq.m. Ages 40-49 = 99 mL/min/1.73 sq.m. Ages 50-59 = 93 mL/min/1.73 sq.m. Ages 60-69 = 85 mL/min/1.73 sq.m. Ages 70+ = 75 mL/min/1.73 sq.m. Chronic Kidney Disease: Less than 60 mL/min/1.73 square meters End Stage Renal Disease: Less than 15 mL/min/1.73 square meters Performed By: #### C BC, ADIFF, ANEU, CMP, GFR #### [address] [address] .NEUABSon 04-26-2020 Neutrophil, Absolute 8.90 10 3/mcL High 2.25-8.10 A [facility] ([place] Comment on above: Performed By: #### C BC, ADIFF, ANEU, CMP, GFR #### [address] [address] BMPon 04-26-2020 BUN/Creatinine Ratio 8.6 ratio Low 10.0-22.0 [facility] ([place] Comment on above: Performed By: #### C BC, ADIFF, ANEU, CMP, GFR #### [address] [address] Calcium [Mass/Vol] 7.9 mg/dL Low 8.7-10.4 [facility] ([place]) Comment on above: Result Comment: No te - New Reference Range in effect 20 Performed By: #### C BC, ADIFF, ANEU, CMP, GFR #### [address] [address] Chloride [Moles/Vol] 104 mmol/L Normal 98-110 [facility] ([place] Comment on above: Performed By: #### C BC, ADIFF, ANEU, CMP, GFR #### [address] [address] CO2 [Moles/Vol] 22 mmol/L Normal 22-32 [facility] [place] Comment on above: Performed By: #### C BC, ADIFF, ANEU, CMP, GFR #### [address] [address] Creatinine [Mass/Vol] 5.25 mg/dL High 0.50-1.20 [facility] ([place] Comment on above: Performed By: #### C BC, ADIFF, ANEU, CMP, GFR #### [address] [address] Electrolyte Balance 10.0 mEq/L Normal 4.0-15.0 [facility] ([place] Comment on above: Performed By: #### C BC, ADIFF, ANEU, CMP, GFR #### [address] [address] Glucose [Mass/Vol] 99 mg/dL Normal 82-115 [facility] ([place] Comment on above: Performed By: #### C BC, ADIFF, ANEU, CMP, GFR #### [address] [address] Potassium [Moles/Vol] 5.6 mmol/L High 3.5-5.0 [facility] ([place] Comment on above: Performed By: #### C BC, ADIFF, ANEU, CMP, GFR #### [address] [address] Sodium [Moles/Vol] 136 mmol/L Normal 136-145 [facility] ([place] Comment on above: Performed By: #### C BC, ADIFF, ANEU, CMP, GFR #### [facility] [address] [place], [place] [address] Urea nitrogen [Mass/Vol] 45.0 mg/dL High 8.0-22.0 [facility] [place] Comment on above: Performed By: #### C BC, ADIFF, ANEU, CMP, GFR #### [place] [address] CBCon 04-26-2020 Erythrocyte distribution width (RBC) [Ratio] 15.2 % Normal 11.5-15.5 [facility] [place] Comment on above: Performed By: #### C BC, ADIFF, ANEU, CMP, GFR #### [place] [address] Hematocrit (Bld) [Volume fraction] 26.4 % Low 34.0-46.0 [facility] [place] Comment on above: Performed By: #### C BC, ADIFF, ANEU, CMP, GFR #### [place] [address] Hgb 9.2 G/dL Low 12.0-16.0 [facility] [place] Comment on above: Performed By: #### C BC, ADIFF, ANEU, CMP, GFR #### [place] [address] MCH (RBC) [Entitic mass] 31.6 pg Normal 27.0-33.0 [facility] [place] Comment on above: Performed By: #### C BC, ADIFF, ANEU, CMP, GFR #### [place] [address] MCHC 34.7 G/dL Normal 32.0-36.0 [facility] [place] Comment on above: Performed By: #### C BC, ADIFF, ANEU, CMP, GFR #### [place] [address] MCV (RBC) [Entitic vol] 91.1 fL Normal 80.0-99.0 [facility] [place] Comment on above: Performed By: #### C BC, ADIFF, ANEU, CMP, GFR #### [place] [id number] Platelet 193 10 3/mcL Normal 150-450 [facility] [place] Comment on above: Performed By: #### C BC, ADIFF, ANEU, CMP, GFR #### [address] [address] Platelet mean volume (Bld) [Entitic vol] 8.8 fL Normal 6.6-10.5 [facility] [place] Comment on above: Performed By: #### C BC, ADIFF, ANEU, CMP, GFR #### [address] [address] RBC 2.90 10 6/mcL Low 4.10-5.30 [facility] [place] Comment on above: Performed By: #### C BC, ADIFF, ANEU, CMP, GFR #### [address] [address] WBC 12.70 10 3/mcL High 4.50-10.80 [facility] [place] Comment on above: Performed By: #### C BC, ADIFF, ANEU, CMP, GFR #### [address] [address] HBCABon 04-26-2020 Hep B Core Ab Negative Normal NEGAT [facility] [place] Comment on above: Result Comment: Perf ormed By: [facility] Dajie [address] [place] [address] Physician Anesthesiologist: Rex Escalona III#: [id number] Phone#: Performed By: #### C BC, ADIFF, ANEU, CMP, GFR #### [address] [address] .GFRon 04-25-2020 GFR 13 ml/min/1.73sqm Normal [facility] [place] Comment on above: Result Comment: GFR Population mean for , Non- Americans Ages 20-29 = 116 mL/min/1.73 sq.m. Ages 30-39 = 107 mL/min/1.73 sq.m. Ages 40-49 = 99 mL/min/1.73 sq.m. Ages 50-59 = 93 mL/min/1.73 sq.m. Ages 60-69 = 85 mL/min/1.73 sq.m. Ages 70+ = 75 mL/min/1.73 sq.m. Chronic Kidney Disease: Less than 60 mL/min/1.73 square meters End Stage Renal Disease: Less than 15 mL/min/1.73 square meters Performed By: #### C BC, ADIFF, ANEU, CMP, GFR #### [address] [address] GFR Non- 11 ml/min/1.73sqm Normal [facility] [place] Comment on above: Result Comment: GFR Population mean for , Non- Americans Ages 20-29 = 116 mL/min/1.73 sq.m. Ages 30-39 = 107 mL/min/1.73 sq.m. Ages 40-49 = 99 mL/min/1.73 sq.m. Ages 50-59 = 93 mL/min/1.73 sq.m. Ages 60-69 = 85 mL/min/1.73 sq.m. Ages 70+ = 75 mL/min/1.73 sq.m. Chronic Kidney Disease: Less than 60 mL/min/1.73 square meters End Stage Renal Disease: Less than 15 mL/min/1.73 square meters Performed By: #### C BC, ADIFF, ANEU, CMP, GFR #### [address] [address] .Manual Diffon 04-25-2020 Bands 4.0 % Normal 0.0-5.0 [facility] [place] Comment on above: Performed By: #### C BC, ADIFF, ANEU, CMP, GFR #### [address] [address] Basophil %, Manual 3.0 % High 0.0-2.5 [facility] ([place] Comment on above: Performed By: #### C BC, ADIFF, ANEU, CMP, GFR #### [address] [address] Basophil, Abs Manual 0.36 10 3/mcL High 0.00-0.27 A [facility] ([place] Comment on above: Performed By: #### C BC, ADIFF, ANEU, CMP, GFR #### [address] [address] Cells Counted 100 Normal [facility] [place] Comment on above: Performed By: #### C BC, ADIFF, ANEU, CMP, GFR #### [address] [address] Eosinophil %, Manual 12.0 % High 0.0-6.0 [facility] ([place] Comment on above: Performed By: #### C BC, ADIFF, ANEU, CMP, GFR #### [address] [address] Eosinophil, Abs Manual 1.45 10 3/mcL High 0.00-0.65 [facility] ([place] Comment on above: Performed By: #### C BC, ADIFF, ANEU, CMP, GFR #### [address] [address] Lymphocyte %, Manual 13.0 % Low 20.0-40.0 [facility] ([place]) Comment on above: Performed By: #### C BC, ADIFF, ANEU, CMP, GFR #### [address] [address] Lymphocyte, Abs Manual 1.57 10 3/mcL Normal 0.90-4.32 [facility] ([place] Comment on above: Performed By: #### C BC, ADIFF, ANEU, CMP, GFR #### [address] [address] Monocyte %, Manual 2.0 % Normal 2.0-13.0 [facility] ([place]) Comment on above: Performed By: #### C BC, ADIFF, ANEU, CMP, GFR #### [address] [address] Monocyte, Abs Manual 0.24 10 3/mcL Normal 0.09-1.40 [facility] ([place]) Comment on above: Performed By: #### C BC, ADIFF, ANEU, CMP, GFR #### [address] [address] Myelocyte 1.0 % Normal [facility] ([place]) Comment on above: Performed By: #### C BC, ADIFF, ANEU, CMP, GFR #### [place] [address] Neutrophil %, Manual 65.0 % Normal 50.0-75.0 [facility] ([place]) Comment on above: Performed By: #### C BC, ADIFF, ANEU, CMP, GFR #### [place] [id number] Neutrophil, Abs Manual 8.35 10 3/mcL High 2.25-8.10 [facility] ([place]) Comment on above: Performed By: #### C BC, ADIFF, ANEU, CMP, GFR #### [place] [address] Nucleated RBC 1.0 /100 WBC Normal [facility] ([place]) Comment on above: Performed By: #### C BC, ADIFF, ANEU, CMP, GFR #### [place] [address] .Morphon 04-25-2020 Platelet Estimate Normal Normal [facility] ([place]) Comment on above: Performed By: #### C BC, ADIFF, ANEU, CMP, GFR #### [place] [address] Polychrom Slight Normal [facility] ([place]) Comment on above: Performed By: #### C BC, ADIFF, ANEU, CMP, GFR #### [place] [address] BMPon 04-25-2020 BUN/Creatinine Ratio 8.5 ratio Low 10.0-22.0 [facility] ([place]) Comment on above: Performed By: #### C BC, ADIFF, ANEU, CMP, GFR #### [place] [address] Calcium [Mass/Vol] 7.6 mg/dL Low 8.7-10.4 [facility] ([place]) Comment on above: Result Comment: No te - New Reference Range in effect 20 Performed By: #### C BC, ADIFF, ANEU, CMP, GFR #### [address] [address] Chloride [Moles/Vol] 104 mmol/L Normal 98-110 [facility] ([place]) Comment on above: Performed By: #### C BC, ADIFF, ANEU, CMP, GFR #### [address] [address] CO2 [Moles/Vol] 23 mmol/L Normal 22-32 [facility] ([place]) Comment on above: Performed By: #### C BC, ADIFF, ANEU, CMP, GFR #### [address] [address] Creatinine [Mass/Vol] 4.10 mg/dL High 0.50-1.20 [facility] ([place]) Comment on above: Performed By: #### C BC, ADIFF, ANEU, CMP, GFR #### [address] [address] Electrolyte Balance 11.0 mEq/L Normal 4.0-15.0 [facility] ([place]) Comment on above: Performed By: #### C BC, ADIFF, ANEU, CMP, GFR #### [address] [address] Glucose [Mass/Vol] 102 mg/dL Normal 82-115 [facility] ([place]) Comment on above: Performed By: #### C BC, ADIFF, ANEU, CMP, GFR #### [address] [address] Potassium [Moles/Vol] 4.9 mmol/L Normal 3.5-5.0 [facility] ([place]) Comment on above: Performed By: #### C BC, ADIFF, ANEU, CMP, GFR #### [address] [address] Sodium [Moles/Vol] 138 mmol/L Normal 136-145 [facility] ([place]) Comment on above: Performed By: #### C BC, ADIFF, ANEU, CMP, GFR #### [address] [address] Urea nitrogen [Mass/Vol] 35.0 mg/dL High 8.0-22.0 [facility] ([place]) Comment on above: Performed By: #### C BC, ADIFF, ANEU, CMP, GFR #### [address] [address] CBCon 04-25-2020 Platelet 165 10 3/mcL Normal 150-450 [facility] ([place]) Comment on above: Performed By: #### C BC, ADIFF, ANEU, CMP, GFR #### [place] [id number] Platelet mean volume (Bld) [Entitic vol] 8.3 fL Normal 6.6-10.5 [facility] ([place]) Comment on above: Performed By: #### C BC, ADIFF, ANEU, CMP, GFR #### [place] [address] Erythrocyte distribution width (RBC) [Ratio] 14.8 % Normal 11.5-15.5 [facility] ([place]) Comment on above: Performed By: #### C BC, ADIFF, ANEU, CMP, GFR #### [place] [address] Hematocrit (Bld) [Volume fraction] 25.7 % Low 34.0-46.0 [facility] ([place]) Comment on above: Performed By: #### C BC, ADIFF, ANEU, CMP, GFR #### [place] [address] Hgb 9.0 G/dL Low 12.0-16.0 [facility] ([place]) Comment on above: Performed By: #### C BC, ADIFF, ANEU, CMP, GFR #### [place] [address] MCH (RBC) [Entitic mass] 31.9 pg Normal 27.0-33.0 [facility] ([place]) Comment on above: Performed By: #### C BC, ADIFF, ANEU, CMP, GFR #### [place] [id number] MCHC 35.0 G/dL Normal 32.0-36.0 [facility] ([place]) Comment on above: Performed By: #### C BC, ADIFF, ANEU, CMP, GFR #### [place] [address] MCV (RBC) [Entitic vol] 91.1 fL Normal 80.0-99.0 [facility] ([place]) Comment on above: Performed By: #### C BC, ADIFF, ANEU, CMP, GFR #### [place] [address] RBC 2.82 10 6/mcL Low 4.10-5.30 [facility] ([place]) Comment on above: Performed By: #### C BC, ADIFF, ANEU, CMP, GFR #### [place] [address] WBC 12.10 10 3/mcL High 4.50-10.80 [facility] ([place]) Comment on above: Result Comment: Capi llary or microtainer specimen received. Performed By: #### C BC, ADIFF, ANEU, CMP, GFR #### [place] [address] EOSon 04-25-2020 Eos Smear 1-5 Normal [facility] ([place]) Comment on above: Result Comment: The units for an eosinophil smear depend upon specimen type: Stool, sputum, nasal specimens: number of cells/hp field Urine, bronchial lavage: number of cells/100 cells (%) Performed By: #### C BC, ADIFF, ANEU, CMP, GFR #### [place] [address] Eosinophil Spec Type Urine Normal [facility] ([place]) Comment on above: Performed By: #### C BC, ADIFF, ANEU, CMP, GFR #### [place] [address] HAVMon 04-25-2020 Hep A IgM Ab Non-Reactive Normal Non-Reactiv e [facility] ([place]) Comment on above: Performed By: #### C BC, ADIFF, ANEU, CMP, GFR #### [place] [address] Hep A IgM Ab Int No serological evide nce of a current Hepatitis A infection. Normal [facility] ([place]) Comment on above: Performed By: #### C BC, ADIFF, ANEU, CMP, GFR #### [place] [id number] HBCMon 04-25-2020 Hep B Core IgM Ab Non-Reactive Normal Non-Reacti v e [facility] ([place]) Comment on above: Performed By: #### C BC, ADIFF, ANEU, CMP, GFR #### [place] [address] Hep B Core IgM Ab Int Samples with a herminia ue < 0.80 Index are considered nonreactive (negative) for IgM antibodies to hepatitis B core antigen. Normal [facility] ([place]) Comment on above: Performed By: #### C BC, ADIFF, ANEU, CMP, GFR #### [place] [address] HBSABon 04-25-2020 Hep B Surf Ab 3.6 mIU/mL Low >=10.0 [facility] ([place]) Comment on above: Result Comment: 0 to < 10.0 mIU/mL Nonreactive Patient is considered not to have protective immunity to HBV infection >/= 10.0 mIU/mL Reactive Patient is considered to have protective immunity to HBV infection. This assay is traceable to the World Health Organization (WHO) Hepatitis B Immunoglobulin 1st International Reference Preparation (1976). The accepted criteria for immunity to HBV is anti-HBs activity >/= 10.0 mIU/mL, as defined by the WHO International Reference Preparation. Performed By: #### C BC, ADIFF, ANEU, CMP, GFR #### [place] [id number] HBSAGon 04-25-2020 Hep B Surf Ag Non-Reactive Normal Non-Reactiv [facility] ([place]) Comment on above: Performed By: #### C BC, ADIFF, ANEU, CMP, GFR #### [place] [id number] HCVon 04-25-2020 Hep C Ab Non-Reactive Normal Non-Reactiv [facility] ([place]) Comment on above: Performed By: #### C BC, ADIFF, ANEU, CMP, GFR #### [place] [address] Hep C Ab Int Nonreactive: Samples with a value < 0.80 are considered nonreactive (negative) for antibodies to HCV. Normal [facility] ([place]) Comment on above: Performed By: #### C SHANICE JIMÉNEZ ANEU, CMP, GFR #### [address] [address] XR CHEST 2 VIEWSon 0 XR CHEST 2 VIEWS ORIGINAL XR CHEST 2 VIEWS CLINICAL STATEMENT: Cough COMPARISON: 04/20/2020 FINDINGS: Stable heart and mediastinum. A right-sided central venous catheter is unchanged. There is persistent prominence of the vasculature and interstitium with small bilateral pleural effusion and some adjacent lung atelectasis. No acute skeletal findings. IMPRESSION: Interstitial edema pattern with small effusions. Interpreted By: David Maldonado MD Preliminary Report By: David Maldonado MD Electronically Signed By: David Maldonado MD Dictated Date: 04/25/2020 5:37:54 PM Prelim Date: 04/25/2020 5:37:54 PM Sign Date: 04/25/2020 5:38:28 PM Ordering Provider:Lea Lawson [facility] ([place]) .GFRon 04-24-2020 GFR Non- 8 ml/min/1.73sqm Normal [facility] ([place]) Comment on above: Result Comment: GFR Population mean for , Non- Americans Ages 20-29 = 116 mL/min/1.73 sq.m. Ages 30-39 = 107 mL/min/1.73 sq.m. Ages 40-49 = 99 mL/min/1.73 sq.m. Ages 50-59 = 93 mL/min/1.73 sq.m. Ages 60-69 = 85 mL/min/1.73 sq.m. Ages 70+ = 75 mL/min/1.73 sq.m. Chronic Kidney Disease: Less than 60 mL/min/1.73 square meters End Stage Renal Disease: Less than 15 mL/min/1.73 square meters Performed By: #### C SHANICE JIMÉNEZ ANEU, CMP, GFR #### [address] [address] GFR 9 ml/min/1.73sqm [facility] ([place]) Comment on above: Result Comment: GFR Population mean for , Non- Americans Ages 20-29 = 116 mL/min/1.73 sq.m. Ages 30-39 = 107 mL/min/1.73 sq.m. Ages 40-49 = 99 mL/min/1.73 sq.m. Ages 50-59 = 93 mL/min/1.73 sq.m. Ages 60-69 = 85 mL/min/1.73 sq.m. Ages 70+ = 75 mL/min/1.73 sq.m. Chronic Kidney Disease: Less than 60 mL/min/1.73 square meters End Stage Renal Disease: Less than 15 mL/min/1.73 square meters Performed By: #### C BC, ADIFF, ANEU, CMP, GFR #### [place] [address] .Manual Diffon 04-24-2020 Basophil %, Manual 0.0 % Normal 0.0-2.5 [facility] ([place]) Comment on above: Performed By: #### C BC, ADIFF, ANEU, CMP, GFR #### [place] [address] Basophil, Abs Manual 0.00 10 3/mcL Normal 0.00-0.27 A [facility] ([place]) Comment on above: Performed By: #### C BC, ADIFF, ANEU, CMP, GFR #### [place] [address] Cells Counted 100 Normal [facility] ([place]) Comment on above: Performed By: #### C BC, ADIFF, ANEU, CMP, GFR #### [place] [address] Eosinophil %, Manual 2.0 % Normal 0.0-6.0 [facility] ([place]) Comment on above: Performed By: #### C BC, ADIFF, ANEU, CMP, GFR #### [place] [address] Eosinophil, Abs Manual 0.17 10 3/mcL Normal 0.00-0.65 [facility] ([place]) Comment on above: Performed By: #### C BC, ADIFF, ANEU, CMP, GFR #### [address] [address] Lymphocyte %, Manual 5.0 % Low 20.0-40.0 [facility] ([place]) Comment on above: Performed By: #### C BC, ADIFF, ANEU, CMP, GFR #### [address] [address] Lymphocyte, Abs Manual 0.41 10 3/mcL Low 0.90-4.32 [facility] ([place]) Comment on above: Performed By: #### C BC, ADIFF, ANEU, CMP, GFR #### [address] [address] Monocyte %, Manual 4.0 % Normal 2.0-13.0 [facility] ([place]) Comment on above: Performed By: #### C BC, ADIFF, ANEU, CMP, GFR #### [address] [address] Monocyte, Abs Manual 0.33 10 3/mcL Normal 0.09-1.40 A [facility] ([place]) Comment on above: Performed By: #### C BC, ADIFF, ANEU, CMP, GFR #### [address] [address] Neutrophil %, Manual 89.0 % High 50.0-75.0 [facility] ([place]) Comment on above: Performed By: #### C BC, ADIFF, ANEU, CMP, GFR #### [address] [address] Neutrophil, Abs Manual 7.39 10 3/mcL Normal 2.25-8.10 [facility] ([place]) Comment on above: Performed By: #### C BC, ADIFF, ANEU, CMP, GFR #### [address] [address] .Morphon 04-24-2020 Anisocytosis Ql (Bld) Slight Normal [facility] ([place]) Comment on above: Performed By: #### C BC, ADIFF, ANEU, CMP, GFR #### [address] [address] Platelet Estimate Normal Normal [facility] ([place]) Comment on above: Performed By: #### C BC, ADIFF, ANEU, CMP, GFR #### [address] [address] Polychrom Slight Normal [facility] ([place]) Comment on above: Performed By: #### C BC, ADIFF, ANEU, CMP, GFR #### [address] [address] BMPon 04-24-2020 BUN/Creatinine Ratio 8.6 ratio Low 10.0-22.0 [facility] ([place]) Comment on above: Performed By: #### H H #### [address] [address] Calcium [Mass/Vol] 7.9 mg/dL Low 8.7-10.4 [facility] ([place]) Comment on above: Result Comment: No te - New Reference Range in effect 20 Performed By: #### H H #### [address] [address] Chloride [Moles/Vol] 103 mmol/L Normal 98-110 [facility] ([place]) Comment on above: Performed By: #### H H #### [address] [address] CO2 [Moles/Vol] 25 mmol/L Normal 22-32 [facility] ([place]) Comment on above: Performed By: #### H H #### [address] [address] Creatinine [Mass/Vol] 5.71 mg/dL High 0.50-1.20 [facility] ([place]) Comment on above: Performed By: #### H H #### [address] [address] Electrolyte Balance 7.0 mEq/L Normal 4.0-15.0 [facility] ([place]) Comment on above: Performed By: #### H H #### [address] [address] Glucose [Mass/Vol] 137 mg/dL High 82-115 [facility] ([place]) Comment on above: Performed By: #### H H #### [place] [address] Potassium [Moles/Vol] 4.7 mmol/L Normal 3.5-5.0 [facility] ([place]) Comment on above: Performed By: #### H H #### [place] [id number] Sodium [Moles/Vol] 135 mmol/L Low 136-145 [facility] ([place]) Comment on above: Performed By: #### H H #### [place] [id number] Urea nitrogen [Mass/Vol] 49.0 mg/dL High 8.0-22.0 [facility] ([place]) Comment on above: Performed By: #### H H #### [place] [address] CBCon 04-24-2020 Erythrocyte distribution width (RBC) [Ratio] 15.2 % Normal 11.5-15.5 [facility] ([place]) Comment on above: Performed By: #### H H #### [place] [id number] Hematocrit (Bld) [Volume fraction] 24.0 % Low 34.0-46.0 [facility] ([place]) Comment on above: Performed By: #### H H #### [place] [address] Hgb 8.2 G/dL Low 12.0-16.0 [facility] ([place]) Comment on above: Performed By: #### H H #### [place] [id number] MCH (RBC) [Entitic mass] 31.5 pg Normal 27.0-33.0 [facility] ([place]) Comment on above: Performed By: #### H H #### [place] [id number] MCHC 34.3 G/dL Normal 32.0-36.0 [facility] ([place]) Comment on above: Performed By: #### H H #### [place] [id number] MCV (RBC) [Entitic vol] 91.7 fL Normal 80.0-99.0 [facility] ([place]) Comment on above: Performed By: #### H H #### [place] [id number] Platelet 199 10 3/mcL Normal 150-450 [facility] ([place]) Comment on above: Performed By: #### H H #### [place] [address] Platelet mean volume (Bld) [Entitic vol] 8.7 fL Normal 6.6-10.5 [facility] ([place]) Comment on above: Performed By: #### H H #### [place] [address] RBC 2.62 10 6/mcL Low 4.10-5.30 [facility] ([place]) Comment on above: Performed By: #### H H #### [place] [address] WBC 8.30 10 3/mcL Normal 4.50-10.80 [facility] ([place]) Comment on above: Performed By: #### H H #### [address] [address] .GFRon 04-23-2020 GFR 12 ml/min/1.73sqm Normal [facility] ([place]) Comment on above: Result Comment: GFR Population mean for , Non- Americans Ages 20-29 = 116 mL/min/1.73 sq.m. Ages 30-39 = 107 mL/min/1.73 sq.m. Ages 40-49 = 99 mL/min/1.73 sq.m. Ages 50-59 = 93 mL/min/1.73 sq.m. Ages 60-69 = 85 mL/min/1.73 sq.m. Ages 70+ = 75 mL/min/1.73 sq.m. Chronic Kidney Disease: Less than 60 mL/min/1.73 square meters End Stage Renal Disease: Less than 15 mL/min/1.73 square meters Performed By: #### H H #### [place] [address] GFR Non- 10 ml/min/1.73sqm Normal [facility] ([place]) Comment on above: Result Comment: GFR Population mean for , Non- Americans Ages 20-29 = 116 mL/min/1.73 sq.m. Ages 30-39 = 107 mL/min/1.73 sq.m. Ages 40-49 = 99 mL/min/1.73 sq.m. Ages 50-59 = 93 mL/min/1.73 sq.m. Ages 60-69 = 85 mL/min/1.73 sq.m. Ages 70+ = 75 mL/min/1.73 sq.m. Chronic Kidney Disease: Less than 60 mL/min/1.73 square meters End Stage Renal Disease: Less than 15 mL/min/1.73 square meters Performed By: #### H H #### [place] [address] .Manual Diffon 04-23-2020 Bands 1.0 % Normal 0.0-5.0 [facility] ([place] Comment on above: Performed By: #### H H #### [place] [address] Basophil %, Manual 0.0 % Normal 0.0-2.5 [facility] ([place]) Comment on above: Performed By: #### H H #### [place] [address] Basophil, Abs Manual 0.00 10 3/mcL Normal 0.00-0.27 A [facility] ([place]) Comment on above: Performed By: #### H H #### [place] [address] Cells Counted 100 Normal [facility] ([place]) Comment on above: Performed By: #### H H #### [place] [address] Eosinophil %, Manual 0.0 % Normal 0.0-6.0 [facility] ([place]) Comment on above: Performed By: #### H H #### [place] [id number] Eosinophil, Abs Manual 0.00 10 3/mcL Normal 0.00-0.65 [facility] ([place]) Comment on above: Performed By: #### H H #### [address] [address] Lymphocyte %, Manual 11.0 % Low 20.0-40.0 [facility] ([place]) Comment on above: Performed By: #### H H #### [address] [address] Lymphocyte, Abs Manual 0.99 10 3/mcL Normal 0.90-4.32 [facility] ([place]) Comment on above: Performed By: #### H H #### [place] [address] Monocyte %, Manual 9.0 % Normal 2.0-13.0 [facility] ([place]) Comment on above: Performed By: #### H H #### [place] [address] Monocyte, Abs Manual 0.81 10 3/mcL Normal 0.09-1.40 A [facility] ([place]) Comment on above: Performed By: #### H H #### [place] [address] Neutrophil %, Manual 79.0 % High 50.0-75.0 [facility] ([place]) Comment on above: Performed By: #### H H #### [place] [id number] Neutrophil, Abs Manual 7.20 10 3/mcL Normal 2.25-8.10 [facility] ([place]) Comment on above: Performed By: #### H H #### [place] [address] .Morphon 04-23-2020 Platelet Estimate Normal Normal [facility] ([place]) Comment on above: Performed By: #### H H #### [place] [address] RBC morphology finding Nom (Bld) Normal Normal [facility] ([place]) Comment on above: Performed By: #### H H #### [place] [address] CBCon 04-23-2020 Erythrocyte distribution width (RBC) [Ratio] 14.9 % Normal 11.5-15.5 [facility] ([place]) Comment on above: Performed By: #### H H #### [place] [address] Hematocrit (Bld) [Volume fraction] 25.5 % Low 34.0-46.0 [facility] ([place]) Comment on above: Performed By: #### H H #### [place] [address] Hgb 8.9 G/dL Low 12.0-16.0 [facility] ([place]) Comment on above: Performed By: #### H H #### [place] [address] MCH (RBC) [Entitic mass] 31.7 pg Normal 27.0-33.0 [facility] ([place]) Comment on above: Performed By: #### H H #### [place] [address] MCHC 35.0 G/dL Normal 32.0-36.0 [facility] ([place]) Comment on above: Performed By: #### H H #### [place] [address] MCV (RBC) [Entitic vol] 90.6 fL Normal 80.0-99.0 [facility] ([place]) Comment on above: Performed By: #### H H #### [place] [address] Platelet 165 10 3/mcL Normal 150-450 [facility] ([place]) Comment on above: Performed By: #### H H #### [place] [address] Platelet mean volume (Bld) [Entitic vol] 8.7 fL Normal 6.6-10.5 [facility] ([place]) Comment on above: Performed By: #### H H #### [place] [address] RBC 2.82 10 6/mcL Low 4.10-5.30 [facility] ([place]) Comment on above: Performed By: #### H H #### [place] [address] WBC 9.00 10 3/mcL Normal 4.50-10.80 [facility] ([place]) Comment on above: Result Comment: Capi llary or microtainer specimen received. Performed By: #### H H #### [place] [address] CMPon 04-23-2020 Albumin Level 1.7 G/dL Low 3.2-4.8 [facility] ([place] Comment on above: Performed By: #### H H #### [place] [id number] Albumin/Globulin [Mass ratio] 0.8 {ratio} Low 0.9-1.6 [facility] ([place] Comment on above: Performed By: #### H H #### [place] [address] ALP [Catalytic activity/Vol] 263 U/L High 38-126 [facility] ([place] Comment on above: Performed By: #### H H #### [place] [address] ALT [Catalytic activity/Vol] 232 U/L High 10-49 [facility] ([place] Comment on above: Performed By: #### H H #### [place] [address] AST [Catalytic activity/Vol] 37 U/L High 8-34 [facility] ([place] Comment on above: Performed By: #### H H #### [place] [address] Bili Total 0.50 mg/dL Normal 0.20-1.20 [facility] ([place] Comment on above: Result Comment: Use of this assay is not recommended for patients undergoing treatment with eltrombopag due to the potential for falsely elevated results. Performed By: #### H H #### [place] [address] BUN/Creatinine Ratio 7.5 ratio Low 10.0-22.0 [facility] ([place]) Comment on above: Performed By: #### H H #### [address] [address] Calcium [Mass/Vol] 8.1 mg/dL Low 8.7-10.4 [facility] ([place]) Comment on above: Result Comment: No te - New Reference Range in effect 20 Performed By: #### H H #### [address] [address] Chloride [Moles/Vol] 105 mmol/L Normal 98-110 [facility] ([place]) Comment on above: Performed By: #### H H #### [address] [address] CO2 [Moles/Vol] 22 mmol/L Normal 22-32 [facility] ([place] Comment on above: Performed By: #### H H #### [address] [address] Creatinine [Mass/Vol] 4.51 mg/dL High 0.50-1.20 [facility] ([place]) Comment on above: Performed By: #### H H #### [address] [address] Electrolyte Balance 9.0 mEq/L Normal 4.0-15.0 [facility] ([place]) Comment on above: Performed By: #### H H #### [place] [id number] Globulin 2.2 G/dL Normal 1.5-3.8 [facility] ([place] Comment on above: Performed By: #### H H #### [address] [address] Glucose [Mass/Vol] 149 mg/dL High 82-115 [facility] ([place]) Comment on above: Performed By: #### H H #### [address] [address] Potassium [Moles/Vol] 4.9 mmol/L Normal 3.5-5.0 [facility] ([place]) Comment on above: Result Comment: Spec imen slightly hemolyzed. Performed By: #### H H #### [address] [address] Sodium [Moles/Vol] 136 mmol/L Normal 136-145 [facility] ([place]) Comment on above: Performed By: #### H H #### [address] [address] Total Protein 3.9 G/dL Low 5.7-8.2 [facility] ([place] Comment on above: Result Comment: No te - New Reference Range in effect 20 Performed By: #### H H #### [address] [address] Urea nitrogen [Mass/Vol] 34.0 mg/dL High 8.0-22.0 [facility] ([place] Comment on above: Performed By: #### H H #### [address] [address] .Auto Diffon 04-22-2020 Basophil, Absolute 0.00 10 3/mcL Normal 0.00-0.27 [facility] ([place]) Comment on above: Performed By: #### C WDP #### [address] [address] Basophils/100 WBC (Bld) 0.3 % Normal 0.0-2.5 [facility] ([place] Comment on above: Performed By: #### C WDP #### [address] [address] Eosinophil, Absolute 0.00 10 3/mcL Normal 0.00-0.65 A [facility] ([place]) Comment on above: Performed By: #### C WDP #### [address] [address] Eosinophils/100 WBC (Bld) 0.5 % Normal 0.0-6.0 [facility] ([place] Comment on above: Performed By: #### C WDP #### [address] [address] Lymphocyte, Absolute 0.50 10 3/mcL Low 0.90-4.32 A [facility] ([place]) Comment on above: Performed By: #### C WDP #### [address] [address] Lymphocytes/100 WBC (Bld) 7.0 % Low 20.0-40.0 [facility] ([place] Comment on above: Performed By: #### C WDP #### [address] [address] Monocyte, Absolute 0.50 10 3/mcL Normal 0.09-1.40 [facility] ([place]) Comment on above: Performed By: #### C WDP #### [address] [address] Monocytes/100 WBC (Bld) 6.3 % Normal 2.0-13.0 [facility] ([place] Comment on above: Performed By: #### C WDP #### [address] [address] Neutrophils/100 WBC (Bld) 85.9 % High 50.0-75.0 [facility] ([place] Comment on above: Performed By: #### C WDP #### [address] [address] .GFRon 04-22-2020 GFR 9 ml/min/1.73sqm Normal [facility] ([place] Comment on above: Result Comment: GFR Population mean for , Non- Americans Ages 20-29 = 116 mL/min/1.73 sq.m. Ages 30-39 = 107 mL/min/1.73 sq.m. Ages 40-49 = 99 mL/min/1.73 sq.m. Ages 50-59 = 93 mL/min/1.73 sq.m. Ages 60-69 = 85 mL/min/1.73 sq.m. Ages 70+ = 75 mL/min/1.73 sq.m. Chronic Kidney Disease: Less than 60 mL/min/1.73 square meters End Stage Renal Disease: Less than 15 mL/min/1.73 square meters Performed By: #### H H #### [address] [address] GFR Non- 7 ml/min/1.73sqm [facility] ([place] Comment on above: Result Comment: GFR Population mean for , Non- Americans Ages 20-29 = 116 mL/min/1.73 sq.m. Ages 30-39 = 107 mL/min/1.73 sq.m. Ages 40-49 = 99 mL/min/1.73 sq.m. Ages 50-59 = 93 mL/min/1.73 sq.m. Ages 60-69 = 85 mL/min/1.73 sq.m. Ages 70+ = 75 mL/min/1.73 sq.m. Chronic Kidney Disease: Less than 60 mL/min/1.73 square meters End Stage Renal Disease: Less than 15 mL/min/1.73 square meters Performed By: #### H H #### [address] [address] .NEUABSon 04-22-2020 Neutrophil, Absolute 6.60 10 3/mcL Normal 2.25-8.10 A [facility] ([place]) Comment on above: Performed By: #### H H #### [address] [address] BMPon 04-22-2020 BUN/Creatinine Ratio 6.9 ratio Low 10.0-22.0 [facility] ([place]) Comment on above: Performed By: #### H H #### [address] [address] Calcium [Mass/Vol] 8.1 mg/dL Low 8.7-10.4 [facility] ([place]) Comment on above: Result Comment: No te - New Reference Range in effect 20 Performed By: #### H H #### [address] [address] Chloride [Moles/Vol] 105 mmol/L Normal 98-110 [facility] ([place]) Comment on above: Performed By: #### H H #### [address] [address] CO2 [Moles/Vol] 26 mmol/L Normal 22-32 [facility] ([place] Comment on above: Performed By: #### H H #### [address] [address] Creatinine [Mass/Vol] 5.80 mg/dL High 0.50-1.20 [facility] ([place]) Comment on above: Performed By: #### H H #### [address] [address] Electrolyte Balance 7.0 mEq/L Normal 4.0-15.0 [facility] ([place]) Comment on above: Performed By: #### H H #### [address] [address] Glucose [Mass/Vol] 131 mg/dL High 82-115 [facility] ([place]) Comment on above: Performed By: #### H H #### [place] [id number] Potassium [Moles/Vol] 4.3 mmol/L Normal 3.5-5.0 [facility] ([place]) Comment on above: Performed By: #### H H #### [place] [id number] Sodium [Moles/Vol] 138 mmol/L Normal 136-145 [facility] ([place]) Comment on above: Performed By: #### H H #### [place] [id number] Urea nitrogen [Mass/Vol] 40.0 mg/dL High 8.0-22.0 [facility] ([place] Comment on above: Performed By: #### H H #### [address] [address] CBCon 04-22-2020 Erythrocyte distribution width (RBC) [Ratio] 15.1 % Normal 11.5-15.5 [facility] ([place] Comment on above: Performed By: #### C WDP #### [address] [address] Hematocrit (Bld) [Volume fraction] 27.2 % Low 34.0-46.0 [facility] ([place] Comment on above: Performed By: #### C WDP #### [place] [id number] Hgb 9.4 G/dL Low 12.0-16.0 [facility] ([place] Comment on above: Performed By: #### C WDP #### [place] [address] MCH (RBC) [Entitic mass] 31.7 pg Normal 27.0-33.0 [facility] ([place] Comment on above: Performed By: #### C WDP #### [place] [address] MCHC 34.7 G/dL Normal 32.0-36.0 [facility] ([place] Comment on above: Performed By: #### C WDP #### [place] [address] MCV (RBC) [Entitic vol] 91.2 fL Normal 80.0-99.0 [facility] ([place] Comment on above: Performed By: #### C WDP #### [place] [address] Platelet 133 10 3/mcL Low 150-450 [facility] ([place] Comment on above: Performed By: #### C WDP #### [place] [address] Platelet mean volume (Bld) [Entitic vol] 8.1 fL Normal 6.6-10.5 [facility] ([place] Comment on above: Performed By: #### C WDP #### [place] [address] RBC 2.98 10 6/mcL Low 4.10-5.30 [facility] ([place] Comment on above: Performed By: #### C WDP #### [place] [address] WBC 7.70 10 3/mcL Normal 4.50-10.80 [facility] ([place] Comment on above: Performed By: #### C WDP #### [place] [address] .Auto Diffon 04-21-2020 Basophil, Absolute 0.00 10 3/mcL Normal 0.00-0.27 [facility] ([place]) Comment on above: Performed By: #### C WDP #### [address] [address] Basophils/100 WBC (Bld) 0.3 % Normal 0.0-2.5 [facility] ([place] Comment on above: Performed By: #### C WDP #### [address] [address] Eosinophil, Absolute 0.60 10 3/mcL Normal 0.00-0.65 A [facility] ([place]) Comment on above: Performed By: #### C WDP #### [address] [address] Eosinophils/100 WBC (Bld) 8.6 % High 0.0-6.0 [facility] ([place] Comment on above: Performed By: #### C WDP #### [address] [address] Lymphocyte, Absolute 0.40 10 3/mcL Low 0.90-4.32 A [facility] ([place]) Comment on above: Performed By: #### C WDP #### [address] [address] Lymphocytes/100 WBC (Bld) 5.4 % Low 20.0-40.0 [facility] ([place] Comment on above: Performed By: #### C WDP #### [address] [address] Monocyte, Absolute 0.80 10 3/mcL Normal 0.09-1.40 [facility] ([place]) Comment on above: Performed By: #### C WDP #### [address] [address] Monocytes/100 WBC (Bld) 11.3 % Normal 2.0-13.0 [facility] ([place] Comment on above: Performed By: #### C WDP #### [address] [address] Neutrophils/100 WBC (Bld) 74.4 % Normal 50.0-75.0 [facility] ([place] Comment on above: Performed By: #### C WDP #### [address] [address] .GFRon 04-21-2020 GFR Non- 10 ml/min/1.73sqm Normal [facility] ([place]) Comment on above: Result Comment: GFR Population mean for , Non- Americans Ages 20-29 = 116 mL/min/1.73 sq.m. Ages 30-39 = 107 mL/min/1.73 sq.m. Ages 40-49 = 99 mL/min/1.73 sq.m. Ages 50-59 = 93 mL/min/1.73 sq.m. Ages 60-69 = 85 mL/min/1.73 sq.m. Ages 70+ = 75 mL/min/1.73 sq.m. Chronic Kidney Disease: Less than 60 mL/min/1.73 square meters End Stage Renal Disease: Less than 15 mL/min/1.73 square meters Performed By: #### C WDP #### [address] [address] GFR 12 ml/min/1.73sqm Normal [facility] ([place] Comment on above: Result Comment: GFR Population mean for , Non- Americans Ages 20-29 = 116 mL/min/1.73 sq.m. Ages 30-39 = 107 mL/min/1.73 sq.m. Ages 40-49 = 99 mL/min/1.73 sq.m. Ages 50-59 = 93 mL/min/1.73 sq.m. Ages 60-69 = 85 mL/min/1.73 sq.m. Ages 70+ = 75 mL/min/1.73 sq.m. Chronic Kidney Disease: Less than 60 mL/min/1.73 square meters End Stage Renal Disease: Less than 15 mL/min/1.73 square meters Performed By: #### C WDP #### [address] [address] .NEUABSon 04-21-2020 Neutrophil, Absolute 5.30 10 3/mcL Normal 2.25-8.10 A [facility] ([place]) Comment on above: Performed By: #### C WDP #### [address] [address] Nicole 04-21-2020 Ammonia (P) [Mass/Vol] ug/dL Low 11-32 [facility] ([place] Comment on above: Performed By: #### C WDP #### [address] [address] CBCon 04-21-2020 Erythrocyte distribution width (RBC) [Ratio] 14.9 % Normal 11.5-15.5 [facility] ([place] Comment on above: Performed By: #### C WDP #### [place] [id number] Hematocrit (Bld) [Volume fraction] 23.0 % Low 34.0-46.0 [facility] ([place] Comment on above: Performed By: #### C WDP #### [place] [id number] Hgb 8.0 G/dL Low 12.0-16.0 [facility] ([place] Comment on above: Performed By: #### C WDP #### [place] [address] MCH (RBC) [Entitic mass] 31.5 pg Normal 27.0-33.0 [facility] ([place] Comment on above: Performed By: #### C WDP #### [place] [address] MCHC 34.7 G/dL Normal 32.0-36.0 [facility] ([place] Comment on above: Performed By: #### C WDP #### [place] [id number] MCV (RBC) [Entitic vol] 90.9 fL Normal 80.0-99.0 [facility] ([place] Comment on above: Performed By: #### C WDP #### [place] [id number] Platelet 80 10 3/mcL Low 150-450 [facility] ([place] Comment on above: Performed By: #### C WDP #### [place] [id number] Platelet mean volume (Bld) [Entitic vol] 8.0 fL Normal 6.6-10.5 [facility] ([place] Comment on above: Performed By: #### C WDP #### [address] [address] RBC 2.53 10 6/mcL Low 4.10-5.30 [facility] ([place] Comment on above: Performed By: #### C WDP #### [address] [address] WBC 7.10 10 3/mcL Normal 4.50-10.80 [facility] ([place] Comment on above: Performed By: #### C WDP #### [address] [address] CKon 04-21-2020 CK [Catalytic activity/Vol] 241 U/L High 7-185 [facility] ([place] Comment on above: Performed By: #### C DARVINP #### [address] [address] CMPon 04-21-2020 Albumin Level 1.8 G/dL Low 3.2-4.8 [facility] ([place] Comment on above: Performed By: #### C WDP #### [address] [address] Albumin/Globulin [Mass ratio] 1.0 {ratio} Normal 0.9-1.6 [facility] ([place] Comment on above: Performed By: #### C WDP #### [address] [address] ALP [Catalytic activity/Vol] 302 U/L High 38-126 [facility] ([place] Comment on above: Performed By: #### C WDP #### [address] [address] ALT [Catalytic activity/Vol] 424 U/L High 10-49 [facility] ([place] Comment on above: Performed By: #### C WDP #### [address] [address] AST [Catalytic activity/Vol] 75 U/L High 8-34 [facility] ([place] Comment on above: Performed By: #### C WDP #### [address] [address] Bili Total 0.80 mg/dL Normal 0.20-1.20 [facility] ([place] Comment on above: Result Comment: Use of this assay is not recommended for patients undergoing treatment with eltrombopag due to the potential for falsely elevated results. Performed By: #### C WDP #### [place] [id number] BUN/Creatinine Ratio 5.9 ratio Low 10.0-22.0 [facility] ([place]) Comment on above: Performed By: #### C WDP #### [address] [address] Calcium [Mass/Vol] 7.4 mg/dL Low 8.7-10.4 [facility] ([place]) Comment on above: Result Comment: No te - New Reference Range in effect 20 Performed By: #### C WDP #### [address] [address] Chloride [Moles/Vol] 107 mmol/L Normal 98-110 [facility] ([place] Comment on above: Performed By: #### C WDP #### [place] [id number] CO2 [Moles/Vol] 27 mmol/L Normal 22-32 [facility] ([place] Comment on above: Performed By: #### C WDP #### [address] [address] Creatinine [Mass/Vol] 4.40 mg/dL High 0.50-1.20 [facility] ([place]) Comment on above: Performed By: #### C WDP #### [address] [address] Electrolyte Balance 6.0 mEq/L Normal 4.0-15.0 [facility] ([place]) Comment on above: Performed By: #### C WDP #### [address] [address] Globulin 1.8 G/dL Normal 1.5-3.8 [facility] ([place] Comment on above: Performed By: #### C WDP #### [address] [address] Glucose [Mass/Vol] 130 mg/dL High 82-115 [facility] ([place]) Comment on above: Performed By: #### C WDP #### [place] [address] [place] [address] Potassium [Moles/Vol] 3.9 mmol/L Normal 3.5-5.0 [facility] ([place]) Comment on above: Performed By: #### C WDP #### [address] [address] Sodium [Moles/Vol] 140 mmol/L Normal 136-145 [facility] ([place]) Comment on above: Performed By: #### C WDP #### [address] [address] Total Protein 3.6 G/dL Low 5.7-8.2 [facility] ([place] Comment on above: Result Comment: No te - New Reference Range in effect 20 Performed By: #### C WDP #### [address] [address] Urea nitrogen [Mass/Vol] 26.0 mg/dL High 8.0-22.0 [facility] ([place] Comment on above: Performed By: #### C WDP #### [address] [address] [address] HEAD OR BRAIN W/O CONTRAS Ton 04-21-2020 CT HEAD OR BRAIN W/O CONTRAST ORIGINAL Head CT, 04/21/2020 11:16 AM INDICATION: Dysphagia/AMS COMPARISON: No TECHNIQUE: Routine non-contrast head CT. This exam was performed according to our departmental dose optimization program, and includes the following measures where applicable: automated exposure control, adjustment of the mAs and/or kVp according to patient size and/or exam, and an iterative reconstruction algorithm. FINDINGS: The ventricles and sulci are normal in size and configuration. There are no abnormal intra or extra-axial fluid collections. Rosales-white matter differentiation is maintained. The calvaria and the bones of the base of the skull are intact. IMPRESSION: Normal examination. Interpreted By: Lucita Daily MD Preliminary Report By: Lucita Daily MD Electronically Signed By: Lucita Daily MD Dictated Date: 04/21/2020 8:58:06 PM Prelim Date: 04/21/2020 8:58:06 PM Sign Date: 04/21/2020 8:58:55 PM Ordering Provider:Shameka Charles [facility] ([place]) .GFRon 04-20-2020 GFR 9 ml/min/1.73sqm [facility] ([place]) Comment on above: Result Comment: GFR Population mean for , Non- Americans Ages 20-29 = 116 mL/min/1.73 sq.m. Ages 30-39 = 107 mL/min/1.73 sq.m. Ages 40-49 = 99 mL/min/1.73 sq.m. Ages 50-59 = 93 mL/min/1.73 sq.m. Ages 60-69 = 85 mL/min/1.73 sq.m. Ages 70+ = 75 mL/min/1.73 sq.m. Chronic Kidney Disease: Less than 60 mL/min/1.73 square meters End Stage Renal Disease: Less than 15 mL/min/1.73 square meters Performed By: #### C WDP #### [place] [address] GFR Non- 8 ml/min/1.73sqm [facility] ([place]) Comment on above: Result Comment: GFR Population mean for , Non- Americans Ages 20-29 = 116 mL/min/1.73 sq.m. Ages 30-39 = 107 mL/min/1.73 sq.m. Ages 40-49 = 99 mL/min/1.73 sq.m. Ages 50-59 = 93 mL/min/1.73 sq.m. Ages 60-69 = 85 mL/min/1.73 sq.m. Ages 70+ = 75 mL/min/1.73 sq.m. Chronic Kidney Disease: Less than 60 mL/min/1.73 square meters End Stage Renal Disease: Less than 15 mL/min/1.73 square meters Performed By: #### C WDP #### [place] [id number] .Manual Diffon 04-20-2020 Basophil %, Manual 0.0 % Normal 0.0-2.5 [facility] ([place]) Comment on above: Performed By: #### C WDP #### [address] [address] Basophil, Abs Manual 0.00 10 3/mcL Normal 0.00-0.27 A [facility] ([place]) Comment on above: Performed By: #### C WDP #### [place] [address] Cells Counted 100 Normal [facility] ([place] Comment on above: Performed By: #### C WDP #### [place] [address] Eosinophil %, Manual 6.0 % Normal 0.0-6.0 [facility] ([place] Comment on above: Performed By: #### C WDP #### [place] [address] Eosinophil, Abs Manual 0.28 10 3/mcL Normal 0.00-0.65 [facility] ([place] Comment on above: Performed By: #### C WDP #### [place] [address] Lymphocyte %, Manual 5.0 % Low 20.0-40.0 [facility] ([place]) Comment on above: Performed By: #### C WDP #### [place] [id number] Lymphocyte, Abs Manual 0.23 10 3/mcL Low 0.90-4.32 [facility] ([place] Comment on above: Performed By: #### C WDP #### [place] [address] Monocyte %, Manual 9.0 % Normal 2.0-13.0 [facility] ([place]) Comment on above: Performed By: #### C WDP #### [place] [address] Monocyte, Abs Manual 0.41 10 3/mcL Normal 0.09-1.40 A [facility] ([place]) Comment on above: Performed By: #### C WDP #### [place] [address] Neutrophil %, Manual 80.0 % High 50.0-75.0 [facility] ([place] Comment on above: Performed By: #### C WDP #### [place] [id number] Neutrophil, Abs Manual 3.68 10 3/mcL Normal 2.25-8.10 [facility] ([place] Comment on above: Performed By: #### C WDP #### [address] [address] .Morphon 04-20-2020 Platelet Estimate Slt Decreased Normal [facility] ([place]) Comment on above: Performed By: #### C WDP #### [place] [address] RBC morphology finding Nom (Bld) Normal Normal [facility] ([place] Comment on above: Performed By: #### C WDP #### [address] 04-20-2020 Barometric Pressure 736 mmHg Normal [facility] ([place]) Comment on above: Performed By: #### C RP, ESR #### [place] [address] Base excess Calc (Bld) [Moles/Vol] -3.5000 mmol/L Normal [facility] ([place] Comment on above: Performed By: #### C RP, ESR #### [place] [id number] CO2 [Moles/Vol] 24.3 mmol/L Normal 22.0-30.0 [facility] ([place] Comment on above: Performed By: #### C RP, ESR #### [place] [id number] HCO3 (Bld) [Moles/Vol] 22.8 mmol/L Normal 21.0-29.0 [facility] ([place] Comment on above: Performed By: #### C RP, ESR #### [facility] [address] [place], [place] [address] Oxygen (Bld) [Partial pressure] 112.6 mm[Hg] High 74.0-108.0 [facility] ([place] Comment on above: Performed By: #### C RP, ESR #### [place] [id number] Oxygen saturation in Blood 98.6 % High 92.0-96.0 [facility] ([place] Comment on above: Performed By: #### C RP, ESR #### [address] [address] pCO2 48.1 mmHg High 32.0-46.0 [facility] ([place] Comment on above: Performed By: #### C RP, ESR #### [address] [address] pH (Bld) 7.294 [pH] Low 7.380-7.460 [facility] ([place] Comment on above: Performed By: #### C RP, ESR #### [address] [address] BMPon 04-20-2020 BUN/Creatinine Ratio 5.2 ratio Low 10.0-22.0 [facility] ([place] Comment on above: Performed By: #### C WDP #### [address] [address] Calcium [Mass/Vol] 7.1 mg/dL Low 8.4-10.1 [facility] ([place]) Comment on above: Result Comment: No te - New Reference Range in effect 20 Performed By: #### C WDP #### [address] [address] Chloride [Moles/Vol] 107 mmol/L Normal 98-110 [facility] ([place] Comment on above: Performed By: #### C WDP #### [address] [address] CO2 [Moles/Vol] 25 mmol/L Normal 22-32 [facility] ([place] Comment on above: Performed By: #### C WDP #### [address] [address] Creatinine [Mass/Vol] 5.62 mg/dL High 0.50-1.20 [facility] ([place]) Comment on above: Performed By: #### C WDP #### [address] [address] Electrolyte Balance 6.0 mEq/L Normal 4.0-15.0 [facility] ([place] Comment on above: Performed By: #### C WDP #### [address] [address] Glucose [Mass/Vol] 139 mg/dL High 82-115 [facility] ([place]) Comment on above: Performed By: #### C WDP #### [address] [address] Potassium [Moles/Vol] 4.1 mmol/L Normal 3.5-5.0 [facility] ([place]) Comment on above: Performed By: #### C WDP #### [address] [address] Sodium [Moles/Vol] 138 mmol/L Normal 136-145 [facility] ([place]) Comment on above: Performed By: #### C WDP #### [address] [address] Urea nitrogen [Mass/Vol] 29.0 mg/dL High 8.0-22.0 [facility] ([place] Comment on above: Performed By: #### C WDP #### [address] [address] CBCon 04-20-2020 Erythrocyte distribution width (RBC) [Ratio] 15.6 % High 11.5-15.5 [facility] ([place] Comment on above: Performed By: #### C WDP #### [address] [address] Hematocrit (Bld) [Volume fraction] 19.9 % Low 34.0-46.0 [facility] ([place] Comment on above: Performed By: #### C WDP #### [address] [address] Hgb 6.9 G/dL Critically abnormal 12.0-16.0 [facility] ([place] Comment on above: Performed By: #### C WDP #### [place] [address] MCH (RBC) [Entitic mass] 31.6 pg Normal 27.0-33.0 [facility] ([place] Comment on above: Performed By: #### C WDP #### [place] [address] MCHC 34.6 G/dL Normal 32.0-36.0 [facility] ([place] Comment on above: Performed By: #### C WDP #### [place] [address] MCV (RBC) [Entitic vol] 91.3 fL Normal 80.0-99.0 [facility] ([place] Comment on above: Performed By: #### C WDP #### [place] [address] Platelet 71 10 3/mcL Low 150-450 [facility] [place] Comment on above: Performed By: #### C WDP #### [place] [address] Platelet mean volume (Bld) [Entitic vol] 8.3 fL Normal 6.6-10.5 [facility] ([place] Comment on above: Performed By: #### C WDP #### [place] [address] RBC 2.18 10 6/mcL Low 4.10-5.30 [facility] ([place] Comment on above: Performed By: #### C WDP #### [place] [address] WBC 4.60 10 3/mcL Normal 4.50-10.80 [facility] ([place] Comment on above: Performed By: #### C WDP #### [place] [address] HHon 04-20-2020 Hematocrit (Bld) [Volume fraction] 24.9 % Low 34.0-46.0 [facility] [place] Comment on above: Performed By: #### C WDP #### [place] [address] Hgb 8.4 G/dL Low 12.0-16.0 [facility] ([place] Comment on above: Performed By: #### C WDP #### [place] [id number] RBC (Product)on 04-20-2020 RBC Product Ready RBC Ready for Pickup Normal [facility] ([place] Comment on above: Performed By: #### C WDP #### [place] [address] TABOon 04-20-2020 ABO/Rh Interp Positive Invalid Interpretation Code [facility] ([place] Comment on above: Performed By: #### C WDP #### [place] [address] TABSon 04-20-2020 Antibody Screen Tango Negative Normal [facility] ([place]) Comment on above: Performed By: #### C WDP #### [place] [address] XR CHEST 1 VIEWon 04-20-2020 XR CHEST 1 VIEW ORIGINAL XR CHEST 1 VIEW PORTABLE AP UPRIGHT DATE AND TIME: 04/20/2020 5:23 AM CLINICAL STATEMENT: hypoxia COMPARISON: 04/19/2020 FINDINGS: The cardiomediastinal contours are normal. RIGHT jugular dialysis catheter remains in place. Depth of inspiration is similar. Bibasilar airspace disease shows mild improvement bilaterally. No new infiltrate, effusion, or pneumothorax is seen. Surgical clips are present in the abdomen. IMPRESSION: Mild improvement bilateral lower lung infiltrates. Interpreted By: Michael Nelson MD Preliminary Report By: Michael Nelson MD Electronically Signed By: Michael Nelson MD Dictated Date: 04/20/2020 6:32:09 AM Prelim Date: 04/20/2020 6:32:09 AM Sign Date: 04/20/2020 6:34:23 AM Ordering Provider:Dean Gaspar [facility] ([place] .Auto Diffon 04-19-2020 Basophil, Absolute 0.00 10 3/mcL Normal 0.00-0.27 [facility] ([place]) Comment on above: Performed By: #### C RP, ESR #### [address] [address] Basophils/100 WBC (Bld) 0.1 % Normal 0.0-2.5 [facility] ([place] Comment on above: Performed By: #### C RP, ESR #### [address] [address] Eosinophil, Absolute 0.40 10 3/mcL Normal 0.00-0.65 A [facility] ([place]) Comment on above: Performed By: #### C RP, ESR #### [address] [address] Eosinophils/100 WBC (Bld) 7.9 % High 0.0-6.0 [facility] ([place] Comment on above: Performed By: #### C RP, ESR #### [address] [address] Lymphocyte, Absolute 0.20 10 3/mcL Low 0.90-4.32 A [facility] ([place] Comment on above: Performed By: #### C RP, ESR #### [address] [address] Lymphocytes/100 WBC (Bld) 5.1 % Low 20.0-40.0 [facility] ([place] Comment on above: Performed By: #### C RP, ESR #### [address] [address] Monocyte, Absolute 0.50 10 3/mcL Normal 0.09-1.40 [facility] ([place] Comment on above: Performed By: #### C RP, ESR #### [address] [address] Monocytes/100 WBC (Bld) 9.8 % Normal 2.0-13.0 [facility] [place] Comment on above: Performed By: #### C RP, ESR #### [address] [address] Neutrophils/100 WBC (Bld) 77.1 % High 50.0-75.0 [facility] ([place] Comment on above: Performed By: #### C RP, ESR #### [address] [address] .GFRon 04-19-2020 GFR Non- 8 ml/min/1.73sqm Normal [facility] [place] Comment on above: Result Comment: GFR Population mean for , Non- Americans Ages 20-29 = 116 mL/min/1.73 sq.m. Ages 30-39 = 107 mL/min/1.73 sq.m. Ages 40-49 = 99 mL/min/1.73 sq.m. Ages 50-59 = 93 mL/min/1.73 sq.m. Ages 60-69 = 85 mL/min/1.73 sq.m. Ages 70+ = 75 mL/min/1.73 sq.m. Chronic Kidney Disease: Less than 60 mL/min/1.73 square meters End Stage Renal Disease: Less than 15 mL/min/1.73 square meters Performed By: #### C RP, ESR #### [place] [address] GFR 9 ml/min/1.73sqm Normal [facility] [place] Comment on above: Result Comment: GFR Population mean for , Non- Americans Ages 20-29 = 116 mL/min/1.73 sq.m. Ages 30-39 = 107 mL/min/1.73 sq.m. Ages 40-49 = 99 mL/min/1.73 sq.m. Ages 50-59 = 93 mL/min/1.73 sq.m. Ages 60-69 = 85 mL/min/1.73 sq.m. Ages 70+ = 75 mL/min/1.73 sq.m. Chronic Kidney Disease: Less than 60 mL/min/1.73 square meters End Stage Renal Disease: Less than 15 mL/min/1.73 square meters Performed By: #### C RP, ESR #### [address] [address] .NEUABSon 04-19-2020 Neutrophil, Absolute 3.80 10 3/mcL Normal 2.25-8.10 A [facility] ([place] Comment on above: Performed By: #### C RP, ESR #### [address] [address] BGon 04-19-2020 Barometric Pressure 713 mmHg Normal [facility] ([place] Comment on above: Performed By: #### C RP, ESR #### [place] [id number] Base excess Calc (Bld) [Moles/Vol] -9.1000 mmol/L Normal [facility] ([place] Comment on above: Performed By: #### C RP, ESR #### [address] [address] CO2 [Moles/Vol] 18.7 mmol/L Low 22.0-30.0 [facility] [place] Comment on above: Performed By: #### C RP, ESR #### [place] [id number] HCO3 (Bld) [Moles/Vol] 17.4 mmol/L Low 21.0-29.0 [facility] ([place]) Comment on above: Performed By: #### C RP, ESR #### [place] [id number] Oxygen (Bld) [Partial pressure] 108.7 mm[Hg] High 74.0-108.0 [facility] [place] Comment on above: Performed By: #### C RP, ESR #### [place] [id number] Oxygen saturation in Blood 98.3 % High 92.0-96.0 [facility] [place] Comment on above: Performed By: #### C RP, ESR #### [address] [address] pCO2 40.7 mmHg Normal 32.0-46.0 [facility] ([place] Comment on above: Performed By: #### C RP, ESR #### [address] [address] pH (Bld) 7.249 [pH] Low 7.380-7.460 [facility] [place] Comment on above: Performed By: #### C RP, ESR #### [place] [id number] Barometric Pressure 733 mmHg Normal [facility] ([place]) Comment on above: Performed By: #### C RP, ESR #### [address] [address] Base excess Calc (Bld) [Moles/Vol] -10.75934 mmol/L Normal [facility] ([place] Comment on above: Performed By: #### C RP, ESR #### [address] [address] CO2 [Moles/Vol] 18.9 mmol/L Low 22.0-30.0 [facility] [place] Comment on above: Performed By: #### C RP, ESR #### [address] [address] HCO3 (Bld) [Moles/Vol] 17.5 mmol/L Low 21.0-29.0 [facility] [place] Comment on above: Performed By: #### C RP, ESR #### [address] [address] Oxygen (Bld) [Partial pressure] 44.6 mm[Hg] Critically abnormal 74.0-108.0 [facility] [place] Comment on above: Performed By: #### C RP, ESR #### [address] [address] Oxygen saturation in Blood 76.4 % Low 92.0-96.0 [facility] [place] Comment on above: Performed By: #### C RP, ESR #### [address] [address] pCO2 47.0 mmHg High 32.0-46.0 [facility] [place] Comment on above: Performed By: #### C RP, ESR #### [address] [address] pH (Bld) 7.188 [pH] Critically abnormal 7.380-7.460 [facility] [place] Comment on above: Performed By: #### C RP, ESR #### [address] [address] CBCon 04-19-2020 Erythrocyte distribution width (RBC) [Ratio] 15.9 % High 11.5-15.5 [facility] [place] Comment on above: Performed By: #### C RP, ESR #### [address] [address] Hematocrit (Bld) [Volume fraction] 24.9 % Low 34.0-46.0 [facility] [place] Comment on above: Performed By: #### C RP, ESR #### [address] [address] Hgb 8.4 G/dL Low 12.0-16.0 [facility] [place] Comment on above: Performed By: #### C RP, ESR #### [address] [address] MCH (RBC) [Entitic mass] 31.2 pg Normal 27.0-33.0 [facility] [place] Comment on above: Performed By: #### C RP, ESR #### [place] [id number] MCHC 33.7 G/dL Normal 32.0-36.0 [facility] [place] Comment on above: Performed By: #### C RP, ESR #### [place] [id number] MCV (RBC) [Entitic vol] 92.6 fL Normal 80.0-99.0 [facility] [place] Comment on above: Performed By: #### C RP, ESR #### [place] [id number] Platelet 95 10 3/mcL Low 150-450 [facility] [place] Comment on above: Performed By: #### C RP, ESR #### [address] [address] Platelet mean volume (Bld) [Entitic vol] 8.0 fL Normal 6.6-10.5 [facility] [place] Comment on above: Performed By: #### C RP, ESR #### [place] [id number] RBC 2.69 10 6/mcL Low 4.10-5.30 [facility] [place] Comment on above: Performed By: #### C RP, ESR #### [address] [address] WBC 4.90 10 3/mcL Normal 4.50-10.80 [facility] [place] Comment on above: Performed By: #### C RP, ESR #### [address] [address] CKon 04-19-2020 CK [Catalytic activity/Vol] 608 U/L High 7-185 [facility] [place] Comment on above: Performed By: #### C RP, ESR #### [address] [address] CMPon 04-19-2020 Albumin Level 1.9 G/dL Low 3.2-4.8 [facility] [place] Comment on above: Performed By: #### C RP, ESR #### [place] [id number] Albumin/Globulin [Mass ratio] 1.1 {ratio} Normal 0.9-1.6 [facility] [place] Comment on above: Performed By: #### C RP, ESR #### [address] [address] ALP [Catalytic activity/Vol] 403 U/L High 38-126 [facility] [place] Comment on above: Performed By: #### C RP, ESR #### [address] [address] ALT [Catalytic activity/Vol] 852 U/L High 10-49 [facility] [place] Comment on above: Performed By: #### C RP, ESR #### [address] [address] AST [Catalytic activity/Vol] 297 U/L High 8-34 [facility] [place] Comment on above: Performed By: #### C RP, ESR #### [address] [address] Bili Total 1.50 mg/dL High 0.20-1.20 [facility] ([place] Comment on above: Result Comment: Use of this assay is not recommended for patients undergoing treatment with eltrombopag due to the potential for falsely elevated results. Performed By: #### C RP, ESR #### [place] [id number] BUN/Creatinine Ratio 6.8 ratio Low 10.0-22.0 [facility] ([place]) Comment on above: Performed By: #### C RP, ESR #### [address] [address] Calcium [Mass/Vol] 6.6 mg/dL Critically abnormal 8.7-10.4 [facility] [place] Comment on above: Result Comment: No te - New Reference Range in effect 20 Performed By: #### C RP, ESR #### [place] [id number] Chloride [Moles/Vol] 106 mmol/L Normal 98-110 [facility] ([place] Comment on above: Performed By: #### C RP, ESR #### [place] [id number] CO2 [Moles/Vol] 17 mmol/L Low 22-32 [facility] [place] Comment on above: Performed By: #### C RP, ESR #### [place] [id number] Creatinine [Mass/Vol] 5.73 mg/dL High 0.50-1.20 [facility] ([place]) Comment on above: Performed By: #### C RP, ESR #### [place] [id number] Electrolyte Balance 10.0 mEq/L Normal 4.0-15.0 [facility] ([place] Comment on above: Performed By: #### C RP, ESR #### [place] [id number] Globulin 1.7 G/dL Normal 1.5-3.8 [facility] [place] Comment on above: Performed By: #### C RP, ESR #### [place] [id number] Glucose [Mass/Vol] 130 mg/dL High 82-115 [facility] ([place]) Comment on above: Performed By: #### C RP, ESR #### [place] [id number] Potassium [Moles/Vol] 4.4 mmol/L Normal 3.5-5.0 [facility] ([place]) Comment on above: Performed By: #### C RP, ESR #### [address] [address] Sodium [Moles/Vol] 133 mmol/L Low 136-145 [facility] ([place]) Comment on above: Performed By: #### C RP, ESR #### [place] [id number] Total Protein 3.6 G/dL Low 5.7-8.2 [facility] ([place] Comment on above: Result Comment: No te - New Reference Range in effect 20 Performed By: #### C RP, ESR #### [place] [id number] Urea nitrogen [Mass/Vol] 39.0 mg/dL High 8.0-22.0 [facility] ([place] Comment on above: Performed By: #### C RP, ESR #### [place] [id number] EOSon 04-19-2020 Eos Smear 0 Normal [facility] ([place] Comment on above: Result Comment: The units for an eosinophil smear depend upon specimen type: Stool, sputum, nasal specimens: number of cells/hp field Urine, bronchial lavage: number of cells/100 cells (%) Performed By: #### C RP, ESR #### [address] [address] HEPACon 04-19-2020 Hep A IgM Ab Non-Reactive Normal Non-Reactiv e [facility] ([place] Comment on above: Performed By: #### C RP, ESR #### [place] [id number] Hep A IgM Ab Int No serological evide nce of a current Hepatitis A infection. Normal [facility] ([place] Comment on above: Performed By: #### C RP, ESR #### [place] [address] Hep B Core IgM Ab Non-Reactive Normal Non-Reacti v e [facility] ([place] Comment on above: Performed By: #### C RP, ESR #### [place] [address] Hep B Core IgM Ab Int Samples with a herminia ue < 0.80 Index are considered nonreactive (negative) for IgM antibodies to hepatitis B core antigen. [facility] ([place]) Comment on above: Performed By: #### C RP, ESR #### [place] [address] Hep B Surf Ag Non-Reactive Normal Non-Reactiv [facility] ([place]) Comment on above: Performed By: #### C RP, ESR #### [place] [address] Hep C Ab Non-Reactive Normal Non-Reactiv [facility] ([place]) Comment on above: Performed By: #### C RP, ESR #### [place] [address] Hep C Ab Int Nonreactive: Samples with a value < 0.80 are considered nonreactive (negative) for antibodies to HCV. [facility] ([place] Comment on above: Performed By: #### C RP, ESR #### [place] [address] IR TEMPORARY DIALYSIS CATHET Leona 04-19-2020 IR TEMPORARY DIALYSIS CATHETER ORIGINAL BEDSIDE TEMPORARY DIALYSIS CATHETER INSERTION WITH ULTRASOUND GUIDANCE CLINICAL STATEMENT: History of oliguric renal failure post hypovolemic shock requiring dialysis PROCEDURE: The procedure was performed at the patient's bedside. The procedure was performed with maximal sterile barrier precautions - cap, mask, sterile gown, sterile gloves, a large sterile sheet, and a chlorhexidine skin prep. The RIGHT internal jugular vein was localized with ultrasound guidance. Lidocaine 2% was injected as a local anesthetic. A micropuncture set was used to access the vein. A permanent sonographic image was obtained to document the access site and placement of the needle in the vessel lumen. A Brush wire was advanced through the micropuncture catheter delayed as the EKG was monitored . The vena puncture site in the neck was enlarged with with sequentially larger vessel dilators. A 14 [place] 15 cm SLX Dual Lumen catheter was utilized as a dialysis catheter. The tip of the catheter was placed in the cavoatrial junction as confirmed by an overhead portable chest X-Ray. Pre- and Post-placement images were saved. The catheter was sutured in place using 2-0 Ethibond. Each of the catheter lumens was flushed with saline. No immediate complication was observed. The patient tolerated the procedure well. IMPRESSION: Successful temporary RIGHT internal jugular hemodialysis catheter insertion. The procedure was performed by Daina Rock PA-C I concur with the contents of the report. Interpreted By: Lucita Barrera Preliminary Report By: Daina Rock PA-C Electronically Signed By: Lucita Barrera Dictated Date: 04/19/2020 4:52:34 PM Prelim Date: 04/19/2020 4:53:20 PM Sign Date: 04/19/2020 4:56:58 PM Ordering Provider:Jesus Hoyos [facility] ([place]) TROPHSon 04-19-2020 Troponin I High Sensitivity (AH) 284.35 ng/L High 0.00-34.00 [facility] ([place] Comment on above: Performed By: #### C RP, ESR #### [place] [address] XR CHEST 1 VIEWon 04-19-2020 XR CHEST 1 VIEW ORIGINAL XR CHEST 1 VIEW CLINICAL STATEMENT: Pre-Hemodialysis catheter placement COMPARISON: 04/17/2020 FINDINGS: Cardiac silhouette is unchanged. There is increased opacity over both lung bases, LEFT greater than RIGHT. LEFT pleural effusion appears increased. No pneumothorax. Increased vascular congestion compared to the prior exam. Osseous structures appear intact. Surgical clips are seen over the LEFT upper abdomen. IMPRESSION: Increase of bibasilar airspace opacities with increasing small LEFT pleural effusion. I have personally reviewed the images of this examination and agree with the resident's findings and interpretation. Interpreted By: Melvin Luther Preliminary Report By: Mp Rea DO Electronically Signed By: Melvin Luther Dictated Date: 04/19/2020 4:03:08 PM Prelim Date: 04/19/2020 4:06:10 PM Sign Date: 04/19/2020 4:48:30 PM Ordering Provider:Daina Rock [facility] ([place]) XR CHEST 1 VIEW ORIGINAL XR CHEST 1 VIEW CLINICAL STATEMENT: POST-temp HD catheter placement COMPARISON: Same day radiograph at 2:42 PM FINDINGS: There has been interval insertion of a dual lumen RIGHT IJ central catheter, which terminates at the cavoatrial junction. There is no appreciable pneumothorax. Cardiac silhouette is unchanged. Bibasilar opacity and LEFT pleural effusion appear unchanged from most recent examination. Similar vascular congestion. Osseous structures appear intact. Surgical clips are seen over the LEFT upper abdomen. IMPRESSION: Interval RIGHT IJ dual-lumen catheter placement, without pneumothorax. Continued bibasilar airspace opacities with small LEFT pleural effusion. I have personally reviewed the images of this examination and agree with the resident's findings and interpretation. Interpreted By: Melvin Luther Preliminary Report By: Mp Rea DO Electronically Signed By: Melvin Luther Dictated Date: 04/19/2020 4:36:15 PM Prelim Date: 04/19/2020 4:38:20 PM Sign Date: 04/19/2020 4:41:32 PM Ordering Provider:Daina Rock [facility] ([place]) .Auto Diffon 04-18-2020 Basophil, Absolute 0.00 10 3/mcL Normal 0.00-0.27 [facility] ([place]) Comment on above: Performed By: #### C BC, ADIFF, ANEU, CMP, GFR #### [address] [address] Basophils/100 WBC (Bld) 0.2 % Normal 0.0-2.5 [facility] ([place] Comment on above: Performed By: #### C BC, ADIFF, ANEU, CMP, GFR #### [address] [address] Eosinophil, Absolute 0.30 10 3/mcL Normal 0.00-0.65 A [facility] ([place]) Comment on above: Performed By: #### C BC, ADIFF, ANEU, CMP, GFR #### [address] [address] Eosinophils/100 WBC (Bld) 7.1 % High 0.0-6.0 [facility] ([place] Comment on above: Performed By: #### C BC, ADIFF, ANEU, CMP, GFR #### [address] [address] Lymphocyte, Absolute 0.40 10 3/mcL Low 0.90-4.32 A [facility] ([place] Comment on above: Performed By: #### C BC, ADIFF, ANEU, CMP, GFR #### [address] [address] Lymphocytes/100 WBC (Bld) 9.0 % Low 20.0-40.0 [facility] ([place]) Comment on above: Performed By: #### C BC, ADIFF, ANEU, CMP, GFR #### [address] [address] Monocyte, Absolute 0.50 10 3/mcL Normal 0.09-1.40 [facility] ([place] Comment on above: Performed By: #### C BC, ADIFF, ANEU, CMP, GFR #### [address] [address] Monocytes/100 WBC (Bld) 9.2 % Normal 2.0-13.0 [facility] ([place] Comment on above: Performed By: #### C BC, ADIFF, ANEU, CMP, GFR #### [address] [address] Neutrophils/100 WBC (Bld) 74.5 % Normal 50.0-75.0 [facility] ([place] Comment on above: Performed By: #### C BC, ADIFF, ANEU, CMP, GFR #### [address] [address] .GFRon 04-18-2020 GFR 10 ml/min/1.73sqm Normal [facility] ([place] Comment on above: Result Comment: GFR Population mean for , Non- Americans Ages 20-29 = 116 mL/min/1.73 sq.m. Ages 30-39 = 107 mL/min/1.73 sq.m. Ages 40-49 = 99 mL/min/1.73 sq.m. Ages 50-59 = 93 mL/min/1.73 sq.m. Ages 60-69 = 85 mL/min/1.73 sq.m. Ages 70+ = 75 mL/min/1.73 sq.m. Chronic Kidney Disease: Less than 60 mL/min/1.73 square meters End Stage Renal Disease: Less than 15 mL/min/1.73 square meters Performed By: #### C RP, ESR #### [address] [address] GFR Non- 8 ml/min/1.73sqm Normal [facility] ([place] Comment on above: Result Comment: GFR Population mean for , Non- Americans Ages 20-29 = 116 mL/min/1.73 sq.m. Ages 30-39 = 107 mL/min/1.73 sq.m. Ages 40-49 = 99 mL/min/1.73 sq.m. Ages 50-59 = 93 mL/min/1.73 sq.m. Ages 60-69 = 85 mL/min/1.73 sq.m. Ages 70+ = 75 mL/min/1.73 sq.m. Chronic Kidney Disease: Less than 60 mL/min/1.73 square meters End Stage Renal Disease: Less than 15 mL/min/1.73 square meters Performed By: #### C RP, ESR #### [address] [address] GFR 11 ml/min/1.73sqm Normal [facility] ([place] Comment on above: Result Comment: GFR Population mean for , Non- Americans Ages 20-29 = 116 mL/min/1.73 sq.m. Ages 30-39 = 107 mL/min/1.73 sq.m. Ages 40-49 = 99 mL/min/1.73 sq.m. Ages 50-59 = 93 mL/min/1.73 sq.m. Ages 60-69 = 85 mL/min/1.73 sq.m. Ages 70+ = 75 mL/min/1.73 sq.m. Chronic Kidney Disease: Less than 60 mL/min/1.73 square meters End Stage Renal Disease: Less than 15 mL/min/1.73 square meters Performed By: #### C BC, ADIFF, ANEU, CMP, GFR #### [address] [address] GFR Non- 9 ml/min/1.73sqm Normal [facility] ([place] Comment on above: Result Comment: GFR Population mean for , Non- Americans Ages 20-29 = 116 mL/min/1.73 sq.m. Ages 30-39 = 107 mL/min/1.73 sq.m. Ages 40-49 = 99 mL/min/1.73 sq.m. Ages 50-59 = 93 mL/min/1.73 sq.m. Ages 60-69 = 85 mL/min/1.73 sq.m. Ages 70+ = 75 mL/min/1.73 sq.m. Chronic Kidney Disease: Less than 60 mL/min/1.73 square meters End Stage Renal Disease: Less than 15 mL/min/1.73 square meters Performed By: #### C BC, ADIFF, ANEU, CMP, GFR #### [address] [address] .NEUABSon 04-18-2020 Neutrophil, Absolute 3.70 10 3/mcL Normal 2.25-8.10 A [facility] ([place]) Comment on above: Performed By: #### C BC, ADIFF, ANEU, CMP, GFR #### [place] [id number] ALBon 04-18-2020 Albumin Level 2.1 G/dL Low 3.2-4.8 [facility] ([place] Comment on above: Performed By: #### C BC, ADIFF, ANEU, CMP, GFR #### [address] [address] BMPon 04-18-2020 BUN/Creatinine Ratio 6.5 ratio Low 10.0-22.0 [facility] ([place] Comment on above: Performed By: #### C RP, ESR #### [address] [address] Calcium [Mass/Vol] 6.8 mg/dL Critically abnormal 8.4-10.1 [facility] ([place] Comment on above: Result Comment: No te - New Reference Range in effect 20 Performed By: #### C RP, ESR #### [address] [address] Chloride [Moles/Vol] 109 mmol/L Normal 98-110 [facility] ([place] Comment on above: Performed By: #### C RP, ESR #### [address] [address] CO2 [Moles/Vol] 16 mmol/L Low 22-32 [facility] ([place] Comment on above: Performed By: #### C RP, ESR #### [address] [address] Creatinine [Mass/Vol] 5.37 mg/dL High 0.50-1.20 [facility] ([place] Comment on above: Performed By: #### C RP, ESR #### [address] [address] Electrolyte Balance 11.0 mEq/L Normal 4.0-15.0 [facility] ([place] Comment on above: Performed By: #### C RP, ESR #### [address] [address] Glucose [Mass/Vol] 131 mg/dL High 82-115 [facility] ([place]) Comment on above: Performed By: #### C RP, ESR #### [address] [address] Potassium [Moles/Vol] 4.5 mmol/L Normal 3.5-5.0 [facility] ([place] Comment on above: Performed By: #### C RP, ESR #### [address] [address] Sodium [Moles/Vol] 136 mmol/L Normal 136-145 [facility] ([place]) Comment on above: Performed By: #### C RP, ESR #### [address] [address] Urea nitrogen [Mass/Vol] 35.0 mg/dL High 8.0-22.0 [facility] ([place] Comment on above: Performed By: #### C RP, ESR #### [address] [address] BUN/Creatinine Ratio 6.8 ratio Low 10.0-22.0 [facility] ([place] Comment on above: Performed By: #### C BC, ADIFF, ANEU, CMP, GFR #### [address] [address] Calcium [Mass/Vol] 5.9 mg/dL Critically abnormal 8.4-10.1 [facility] ([place] Comment on above: Result Comment: No te - New Reference Range in effect 20 Performed By: #### C BC, ADIFF, ANEU, CMP, GFR #### [address] [address] Chloride [Moles/Vol] 110 mmol/L Normal 98-110 [facility] ([place] Comment on above: Performed By: #### C BC, ADIFF, ANEU, CMP, GFR #### [address] [address] CO2 [Moles/Vol] 16 mmol/L Low 22-32 [facility] ([place] Comment on above: Performed By: #### C BC, ADIFF, ANEU, CMP, GFR #### [address] [address] Creatinine [Mass/Vol] 4.86 mg/dL High 0.50-1.20 [facility] ([place] Comment on above: Performed By: #### C BC, ADIFF, ANEU, CMP, GFR #### [address] [address] Electrolyte Balance 11.0 mEq/L Normal 4.0-15.0 [facility] ([place] Comment on above: Performed By: #### C BC, ADIFF, ANEU, CMP, GFR #### [address] [address] Glucose [Mass/Vol] 147 mg/dL High 82-115 [facility] ([place] Comment on above: Performed By: #### C BC, ADIFF, ANEU, CMP, GFR #### [place] [id number] Potassium [Moles/Vol] 5.4 mmol/L High 3.5-5.0 [facility] ([place] Comment on above: Performed By: #### C BC, ADIFF, ANEU, CMP, GFR #### [place] [address] Sodium [Moles/Vol] 137 mmol/L Normal 136-145 [facility] ([place]) Comment on above: Performed By: #### C BC, ADIFF, ANEU, CMP, GFR #### [place] [address] Urea nitrogen [Mass/Vol] 33.0 mg/dL High 8.0-22.0 [facility] ([place] Comment on above: Performed By: #### C BC, ADIFF, ANEU, CMP, GFR #### [place] [address] CAIONon 04-18-2020 Calcium Ionized 0.92 mmol/L Low 1.12-1.32 [facility] ([place] Comment on above: Performed By: #### C BC, ADIFF, ANEU, CMP, GFR #### [place] [address] Calcium Ionized 0.80 mmol/L Critically abnormal 1.12-1.32 [facility] ([place] Comment on above: Performed By: #### C BC, ADIFF, ANEU, CMP, GFR #### [place] [address] CBCon 04-18-2020 Erythrocyte distribution width (RBC) [Ratio] 16.0 % High 11.5-15.5 [facility] ([place] Comment on above: Performed By: #### C BC, ADIFF, ANEU, CMP, GFR #### [place] [address] Hematocrit (Bld) [Volume fraction] 24.6 % Low 34.0-46.0 [facility] ([place] Comment on above: Performed By: #### C BC, ADIFF, ANEU, CMP, GFR #### [place] [address] Hgb 8.3 G/dL Low 12.0-16.0 [facility] ([place] Comment on above: Performed By: #### C BC, ADIFF, ANEU, CMP, GFR #### [place] [address] MCHC 33.9 G/dL Normal 32.0-36.0 [facility] ([place] Comment on above: Performed By: #### C BC, ADIFF, ANEU, CMP, GFR #### [place] [address] MCV (RBC) [Entitic vol] 92.2 fL Normal 80.0-99.0 [facility] ([place] Comment on above: Performed By: #### C BC, ADIFF, ANEU, CMP, GFR #### [place] [address] Platelet 85 10 3/mcL Low 150-450 [facility] ([place] Comment on above: Performed By: #### C BC, ADIFF, ANEU, CMP, GFR #### [place] [address] Platelet mean volume (Bld) [Entitic vol] 8.6 fL Normal 6.6-10.5 [facility] ([place] Comment on above: Performed By: #### C BC, ADIFF, ANEU, CMP, GFR #### [place] [address] RBC 2.67 10 6/mcL Low 4.10-5.30 [facility] ([place] Comment on above: Performed By: #### C BC, ADIFF, ANEU, CMP, GFR #### [place] [address] WBC 4.90 10 3/mcL Normal 4.50-10.80 [facility] ([place] Comment on above: Result Comment: Capi llary or microtainer specimen received. Performed By: #### C BC, ADIFF, ANEU, CMP, GFR #### [place] [address] MCH (RBC) [Entitic mass] 31.3 pg Normal 27.0-33.0 [facility] ([place] Comment on above: Performed By: #### C BC, ADIFF, ANEU, CMP, GFR #### [place] [address] CKon 04-18-2020 CK [Catalytic activity/Vol] 722 U/L High 7-185 [facility] ([place] Comment on above: Performed By: #### C BC, ADIFF, ANEU, CMP, GFR #### [place] [id number] CRURon 04-18-2020 U Creatinine 42.8 mg/dL Normal [facility] ([place] Comment on above: Performed By: #### C RP, ESR #### [place] [id number] EOSon 04-18-2020 Eosinophil Spec Type Urine Normal [facility] ([place] Comment on above: Performed By: #### C RP, ESR #### [place] [address] LACon 04-18-2020 Lactic Acid Lvl 0.9 mmol/L Normal 0.2-2.0 [facility] ([place] Comment on above: Performed By: #### C BC, ADIFF, ANEU, CMP, GFR #### [place] [address] MGon 04-18-2020 Magnesium [Mass/Vol] 2.0 mg/dL Normal 1.6-2.4 [facility] ([place] Comment on above: Performed By: #### C BC, ADIFF, ANEU, CMP, GFR #### [place] [address] Magnesium [Mass/Vol] 1.6 mg/dL Normal 1.6-2.4 [facility] ([place] Comment on above: Performed By: #### C BC, ADIFF, ANEU, CMP, GFR #### [place] [address] NAURon 04-18-2020 Sodium [Moles/Vol] 41 mmol/L Normal [facility] ([place]) Comment on above: Performed By: #### C RP, ESR #### [place] [address] PHOSon 04-18-2020 Phosphate [Mass/Vol] 5.3 mg/dL High 2.5-4.5 [facility] ([place] Comment on above: Result Comment: No te - New Reference Range in effect 20 Performed By: #### C BC, ADIFF, ANEU, CMP, GFR #### [place] [address] TROPHSon 04-18-2020 Troponin I High Sensitivity (AH) 388.32 ng/L High 0.00-34.00 [facility] [place] Comment on above: Performed By: #### C RP, ESR #### [place] [address] Troponin I High Sensitivity (AH) 565.14 ng/L High 0.00-34.00 [facility] [place] Comment on above: Performed By: #### C BC, ADIFF, ANEU, CMP, GFR #### [place] [address] Troponin I High Sensitivity (AH) 732.54 ng/L High 0.00-34.00 [facility] [place] Comment on above: Performed By: #### C BC, ADIFF, ANEU, CMP, GFR #### [place] [address] .Auto Diffon 04-17-2020 Basophil, Absolute 0.00 10 3/mcL Normal 0.00-0.27 [facility] ([place] Comment on above: Performed By: #### C BC, ADIFF, ANEU, CMP, GFR #### [place] [address] Basophils/100 WBC (Bld) 0.3 % Normal 0.0-2.5 [facility] ([place] Comment on above: Performed By: #### C BC, ADIFF, ANEU, CMP, GFR #### [place] [address] Eosinophil, Absolute 0.10 10 3/mcL Normal 0.00-0.65 A [facility] ([place]) Comment on above: Performed By: #### C BC, ADIFF, ANEU, CMP, GFR #### [address] [address] Eosinophils/100 WBC (Bld) 4.4 % Normal 0.0-6.0 [facility] ([place] Comment on above: Performed By: #### C BC, ADIFF, ANEU, CMP, GFR #### [address] [address] Lymphocyte, Absolute 0.30 10 3/mcL Low 0.90-4.32 A [facility] ([place]) Comment on above: Performed By: #### C BC, ADIFF, ANEU, CMP, GFR #### [address] [address] Lymphocytes/100 WBC (Bld) 8.9 % Low 20.0-40.0 [facility] ([place] Comment on above: Performed By: #### C BC, ADIFF, ANEU, CMP, GFR #### [address] [address] Monocyte, Absolute 0.20 10 3/mcL Normal 0.09-1.40 [facility] ([place]) Comment on above: Performed By: #### C BC, ADIFF, ANEU, CMP, GFR #### [address] [address] Monocytes/100 WBC (Bld) 7.2 % Normal 2.0-13.0 [facility] ([place] Comment on above: Performed By: #### C BC, ADIFF, ANEU, CMP, GFR #### [address] [address] Neutrophils/100 WBC (Bld) 79.2 % High 50.0-75.0 [facility] ([place]) Comment on above: Performed By: #### C BC, ADIFF, ANEU, CMP, GFR #### [address] [address] .GFRon 04-17-2020 GFR 16 ml/min/1.73sqm Normal [facility] ([place]) Comment on above: Result Comment: GFR Population mean for , Non- Americans Ages 20-29 = 116 mL/min/1.73 sq.m. Ages 30-39 = 107 mL/min/1.73 sq.m. Ages 40-49 = 99 mL/min/1.73 sq.m. Ages 50-59 = 93 mL/min/1.73 sq.m. Ages 60-69 = 85 mL/min/1.73 sq.m. Ages 70+ = 75 mL/min/1.73 sq.m. Chronic Kidney Disease: Less than 60 mL/min/1.73 square meters End Stage Renal Disease: Less than 15 mL/min/1.73 square meters Performed By: #### C BC, ADIFF, ANEU, CMP, GFR #### [address] [address] GFR Non- 13 ml/min/1.73sqm Normal [facility] ([place] Comment on above: Result Comment: GFR Population mean for , Non- Americans Ages 20-29 = 116 mL/min/1.73 sq.m. Ages 30-39 = 107 mL/min/1.73 sq.m. Ages 40-49 = 99 mL/min/1.73 sq.m. Ages 50-59 = 93 mL/min/1.73 sq.m. Ages 60-69 = 85 mL/min/1.73 sq.m. Ages 70+ = 75 mL/min/1.73 sq.m. Chronic Kidney Disease: Less than 60 mL/min/1.73 square meters End Stage Renal Disease: Less than 15 mL/min/1.73 square meters Performed By: #### C BC, ADIFF, ANEU, CMP, GFR #### [address] [address] .NEUABSon 04-17-2020 Neutrophil, Absolute 2.60 10 3/mcL Normal 2.25-8.10 A [facility] ([place]) Comment on above: Performed By: #### C BC, ADIFF, ANEU, CMP, GFR #### [address] [address] BMPon 04-17-2020 BUN/Creatinine Ratio 9.1 ratio Low 10.0-22.0 [facility] ([place]) Comment on above: Performed By: #### C BC, ADIFF, ANEU, CMP, GFR #### [address] [address] Calcium [Mass/Vol] 7.3 mg/dL Low 8.7-10.4 [facility] ([place]) Comment on above: Result Comment: No te - New Reference Range in effect 20 Performed By: #### C BC, ADIFF, ANEU, CMP, GFR #### [address] [address] Chloride [Moles/Vol] 105 mmol/L Normal 98-110 [facility] ([place]) Comment on above: Performed By: #### C BC, ADIFF, ANEU, CMP, GFR #### [address] [address] CO2 [Moles/Vol] 21 mmol/L Low 22-32 [facility] ([place] Comment on above: Performed By: #### C BC, ADIFF, ANEU, CMP, GFR #### [address] [address] Creatinine [Mass/Vol] 3.53 mg/dL High 0.50-1.20 [facility] ([place]) Comment on above: Performed By: #### C BC, ADIFF, ANEU, CMP, GFR #### [place] [address] Electrolyte Balance 10.0 mEq/L Normal 4.0-15.0 [facility] ([place]) Comment on above: Performed By: #### C BC, ADIFF, ANEU, CMP, GFR #### [address] [address] Glucose [Mass/Vol] 93 mg/dL Normal 82-115 [facility] ([place]) Comment on above: Performed By: #### C BC, ADIFF, ANEU, CMP, GFR #### [place] [id number] Potassium [Moles/Vol] 4.7 mmol/L Normal 3.5-5.0 [facility] ([place]) Comment on above: Result Comment: Spec imen slightly hemolyzed. Performed By: #### C BC, ADIFF, ANEU, CMP, GFR #### [address] [address] Sodium [Moles/Vol] 136 mmol/L Normal 136-145 [facility] ([place]) Comment on above: Performed By: #### C BC, ADIFF, ANEU, CMP, GFR #### [place] [address] Urea nitrogen [Mass/Vol] 32.0 mg/dL High 8.0-22.0 [facility] ([place]) Comment on above: Performed By: #### C BC, ADIFF, ANEU, CMP, GFR #### [address] [address] CBCon 04-17-2020 Erythrocyte distribution width (RBC) [Ratio] 15.7 % High 11.5-15.5 [facility] ([place] Comment on above: Performed By: #### C BC, ADIFF, ANEU, CMP, GFR #### [place] [address] Hematocrit (Bld) [Volume fraction] 27.9 % Low 34.0-46.0 [facility] ([place] Comment on above: Performed By: #### C BC, ADIFF, ANEU, CMP, GFR #### [place] [address] Hgb 9.5 G/dL Low 12.0-16.0 [facility] ([place] Comment on above: Performed By: #### C BC, ADIFF, ANEU, CMP, GFR #### [place] [id number] MCH (RBC) [Entitic mass] 30.9 pg Normal 27.0-33.0 [facility] ([place] Comment on above: Performed By: #### C BC, ADIFF, ANEU, CMP, GFR #### [place] [address] MCHC 33.9 G/dL Normal 32.0-36.0 [facility] ([place] Comment on above: Performed By: #### C BC, ADIFF, ANEU, CMP, GFR #### [place] [address] MCV (RBC) [Entitic vol] 91.3 fL Normal 80.0-99.0 [facility] ([place] Comment on above: Performed By: #### C BC, ADIFF, ANEU, CMP, GFR #### [place] [address] Platelet 78 10 3/mcL Low 150-450 [facility] ([place] Comment on above: Performed By: #### C BC, ADIFF, ANEU, CMP, GFR #### [place] [address] Platelet mean volume (Bld) [Entitic vol] 8.5 fL Normal 6.6-10.5 [facility] ([place] Comment on above: Performed By: #### C BC, ADIFF, ANEU, CMP, GFR #### [place] [address] RBC 3.06 10 6/mcL Low 4.10-5.30 [facility] ([place] Comment on above: Performed By: #### C BC, ADIFF, ANEU, CMP, GFR #### [place] [address] WBC 3.20 10 3/mcL Low 4.50-10.80 [facility] ([place]) Comment on above: Result Comment: Capi llary or microtainer specimen received. Performed By: #### C BC, ADIFF, ANEU, CMP, GFR #### [place] [address] CKon 04-17-2020 CK [Catalytic activity/Vol] 1167 U/L High 7-185 [facility] ([place] Comment on above: Performed By: #### C BC, ADIFF, ANEU, CMP, GFR #### [place] [address] LACon 04-17-2020 Lactic Acid Lvl 1.7 mmol/L Normal 0.2-2.0 [facility] ([place] Comment on above: Performed By: #### C BC, ADIFF, ANEU, CMP, GFR #### [place] [address] TROPHSon 04-17-2020 Troponin I High Sensitivity (AH) 106.91 ng/L High 0.00-34.00 [facility] ([place] Comment on above: Performed By: #### C BC, ADIFF, ANEU, CMP, GFR #### [place] [id number] UAon 04-17-2020 Color (U) Dark Yellow Normal [facility] ([place] Comment on above: Performed By: #### C BC, ADIFF, ANEU, CMP, GFR #### [place] [address] Glucose (U) [Mass/Vol] 250 mg/dL Abnormal Negative [facility] ([place] Comment on above: Performed By: #### C BC, ADIFF, ANEU, CMP, GFR #### [place] [address] Ketones Ql (U) Trace Normal Neg-Trace [facility] ([place] Comment on above: Performed By: #### C BC, ADIFF, ANEU, CMP, GFR #### [place] [address] UA Appear Turbid Abnormal Clear [facility] ([place] Comment on above: Performed By: #### C BC, ADIFF, ANEU, CMP, GFR #### [place] [address] UA Bili Trace Normal Neg-Trace [facility] ([place] Comment on above: Performed By: #### C BC, ADIFF, ANEU, CMP, GFR #### [place] [address] UA Blood Moderate Abnormal Neg-Trace [facility] ([place] Comment on above: Performed By: #### C BC, ADIFF, ANEU, CMP, GFR #### [place] [id number] UA Leuk Est Small Abnormal Negative [facility] ([place] Comment on above: Performed By: #### C BC, ADIFF, ANEU, CMP, GFR #### [place] [id number] UA Nitrite Positive Abnormal Negative [facility] ([place] Comment on above: Performed By: #### C BC, ADIFF, ANEU, CMP, GFR #### [address] [address] UA pH 5.0 Normal 5.0 - 8.0 [facility] ([place] Comment on above: Performed By: #### C BC, ADIFF, ANEU, CMP, GFR #### [address] [address] UA Protein 100 mg/dL Abnormal Negative [facility] ([place] Comment on above: Performed By: #### C BC, ADIFF, ANEU, CMP, GFR #### [address] [address] UA Spec Grav 1.020 Normal 1.006-1.029 [facility] ([place] Comment on above: Performed By: #### C BC, ADIFF, ANEU, CMP, GFR #### [address] [address] UA Specimen Type Catheter Normal [facility] ([place] Comment on above: Performed By: #### C BC, ADIFF, ANEU, CMP, GFR #### [address] [address] UA Urobilinogen 1.0 E.U./dL Normal 0.2-1.0 [facility] ([place] Comment on above: Performed By: #### C BC, ADIFF, ANEU, CMP, GFR #### [address] [address] UAMICon 04-17-2020 UA Bacteria 2+ /hpf Abnormal Negative [facility] ([place] Comment on above: Performed By: #### C BC, ADIFF, ANEU, CMP, GFR #### [address] [address] UA Coarse Granular Casts 5-10 Abnormal [facility] ([place] Comment on above: Performed By: #### C BC, ADIFF, ANEU, CMP, GFR #### [address] [address] UA RBC 3-5 Abnormal 0-2 [facility] ([place] Comment on above: Performed By: #### C BC, ADIFF, ANEU, CMP, GFR #### [address] [place], [place] [address] UA Squam Epithelial 0-2 Normal 0-20 [facility] ([place]) Comment on above: Performed By: #### C BC, SHANICE, PIPPA, CMP, GFR #### [facility] [address] [place] [address] UA WBC 3-5 Normal 0-5 [facility] ([place]) Comment on above: Performed By: #### C BC, ADJEFFREY, ANEU, CMP, GFR #### [place] [id number] [place] [address] US RENALon 04-17-2020 US RENAL ORIGINAL US RENAL (US RETROPERITONEUM COMPLETE) CLINICAL STATEMENT: low urine output, elevated creatinine. COMPARISON: None FINDINGS: Evaluation is moderately compromised by body habitus and bowel gas. The patient is also unable to turn decubitus for the study. Portions of both kidneys are obscured by bowel gas. Small lesions could easily be obscured. The kidneys are normal in size, the right and left kidneys measure 10.2 x 4.3 x 5.4 cm and 9.0 x 5.6 x 5.1 cm in size, respectively. The superior LEFT kidney is obscured by overlying bowel gas. There is focally increased echogenicity involving the superior RIGHT renal pole this may be artifactual or from focal abnormality including the possibility of pyelonephritis.. Renal cortical echogenicity is otherwise normal. Remainder of the RIGHT kidney and the visualized LEFT kidney show normal echogenicity. Normal renal cortical thickness bilaterally. No renal calcification, solid renal mass, pelviectasis or perirenal fluid is demonstrated. Bladder is completely obscured by overlying bowel gas. IMPRESSION: Suboptimal visualization of the kidneys. No obstruction. There seems to be increased echogenicity in the upper RIGHT renal cortex. This may be artifact or focal abnormality including pyelonephritis. Follow-up as clinically warranted and feasible. Consider short-term follow-up ultrasound when the patient is able to cooperate for the study. I have personally reviewed the images of this examination and agree with the resident's findings and interpretation. Interpreted By: David Maldonado MD Preliminary Report By: Jb Price MD Electronically Signed By: David Maldonado MD Dictated Date: 04/17/2020 11:44:27 AM Prelim Date: 04/17/2020 11:49:37 AM Sign Date: 04/17/2020 2:03:11 PM Ordering Provider:Elijah Santo [facility] ([place]) XR CHEST 1 VIEWon 04-17-2020 XR CHEST 1 VIEW ORIGINAL XR CHEST 1 VIEW CLINICAL STATEMENT: shortness of breath. COMPARISON: None. TECHNIQUE: Frontal portable view of the chest was obtained. FINDINGS: The heart, mediastinum and pulmonary vascularity are normal in appearance. There is elevation of the RIGHT hemidiaphragm which obscures the RIGHT costophrenic angle. No definite consolidative opacities are identified. No pleural effusion is seen. There is no evidence of pneumothorax. No free air is noted beneath the diaphragm. The bony thorax is intact. IMPRESSION: No evidence of an acute process. Interpreted By: Melvin Luther Preliminary Report By: Melvin Luther Electronically Signed By: Melvin Luther Dictated Date: 04/17/2020 4:08:15 PM Prelim Date: 04/17/2020 4:08:15 PM Sign Date: 04/17/2020 4:09:24 PM Ordering Provider:Britta Santo [facility] ([place]) .Auto Diffon 04-16-2020 Basophil, Absolute 0.00 10 3/mcL Normal 0.00-0.27 [facility] ([place]) Comment on above: Performed By: #### C BC, ADIFF, ANEU, CMP, GFR #### [address] [address] Basophils/100 WBC (Bld) 0.5 % Normal 0.0-2.5 [facility] ([place] Comment on above: Performed By: #### C BC, ADIFF, ANEU, CMP, GFR #### [address] [address] Eosinophil, Absolute 0.10 10 3/mcL Normal 0.00-0.65 A [facility] ([place]) Comment on above: Performed By: #### C BC, ADIFF, ANEU, CMP, GFR #### [address] [address] Eosinophils/100 WBC (Bld) 2.9 % Normal 0.0-6.0 [facility] ([place] Comment on above: Performed By: #### C BC, ADIFF, ANEU, CMP, GFR #### [address] [address] Lymphocyte, Absolute 0.30 10 3/mcL Low 0.90-4.32 A [facility] ([place]) Comment on above: Performed By: #### C BC, ADIFF, ANEU, CMP, GFR #### [address] [address] Lymphocytes/100 WBC (Bld) 11.6 % Low 20.0-40.0 [facility] ([place]) Comment on above: Performed By: #### C BC, ADIFF, ANEU, CMP, GFR #### [place] [id number] Monocyte, Absolute 0.20 10 3/mcL Normal 0.09-1.40 [facility] ([place]) Comment on above: Performed By: #### C BC, ADIFF, ANEU, CMP, GFR #### [place] [id number] Monocytes/100 WBC (Bld) 10.9 % Normal 2.0-13.0 [facility] ([place] Comment on above: Performed By: #### C BC, ADIFF, ANEU, CMP, GFR #### [address] [address] Neutrophils/100 WBC (Bld) 74.1 % Normal 50.0-75.0 [facility] ([place] Comment on above: Performed By: #### C BC, ADIFF, ANEU, CMP, GFR #### [address] [address] .Morphon 04-16-2020 Anisocytosis Ql (Bld) Slight Normal [facility] ([place]) Comment on above: Performed By: #### C BC, ADIFF, ANEU, CMP, GFR #### [place] [id number] Ovalocytes Few Normal [facility] ([place] Comment on above: Performed By: #### C BC, ADIFF, ANEU, CMP, GFR #### [place] [id number] Platelet Estimate Slt Decreased Normal [facility] ([place]) Comment on above: Performed By: #### C BC, ADIFF, ANEU, CMP, GFR #### [place] [address] Poik Slight Normal [facility] ([place] Comment on above: Performed By: #### C BC, ADIFF, ANEU, CMP, GFR #### [place] [address] .NEUABSon 04-16-2020 Neutrophil, Absolute 1.60 10 3/mcL Low 2.25-8.10 A [facility] ([place]) Comment on above: Performed By: #### C BC, ADIFF, ANEU, CMP, GFR #### [place] [address] CBCon 04-16-2020 Erythrocyte distribution width (RBC) [Ratio] 16.1 % High 11.5-15.5 [facility] ([place] Comment on above: Performed By: #### C BC, ADIFF, ANEU, CMP, GFR #### [place] [address] Hematocrit (Bld) [Volume fraction] 30.4 % Low 34.0-46.0 [facility] ([place] Comment on above: Performed By: #### C BC, ADIFF, ANEU, CMP, GFR #### [place] [address] Hgb 10.3 G/dL Low 12.0-16.0 [facility] ([place] Comment on above: Performed By: #### C BC, ADIFF, ANEU, CMP, GFR #### [place] [address] MCH (RBC) [Entitic mass] 31.1 pg Normal 27.0-33.0 [facility] ([place] Comment on above: Performed By: #### C BC, ADIFF, ANEU, CMP, GFR #### [place] [address] MCHC 33.8 G/dL Normal 32.0-36.0 [facility] ([place] Comment on above: Performed By: #### C BC, ADIFF, ANEU, CMP, GFR #### [address] [address] MCV (RBC) [Entitic vol] 92.2 fL Normal 80.0-99.0 [facility] ([place] Comment on above: Performed By: #### C BC, ADIFF, ANEU, CMP, GFR #### [place] [id number] Platelet 119 10 3/mcL Low 150-450 [facility] ([place] Comment on above: Performed By: #### C BC, ADIFF, ANEU, CMP, GFR #### [place] [address] Platelet mean volume (Bld) [Entitic vol] 8.3 fL Normal 6.6-10.5 [facility] ([place] Comment on above: Performed By: #### C BC, ADIFF, ANEU, CMP, GFR #### [place] [id number] RBC 3.30 10 6/mcL Low 4.10-5.30 [facility] ([place] Comment on above: Performed By: #### C BC, ADIFF, ANEU, CMP, GFR #### [place] [id number] WBC 2.20 10 3/mcL Low 4.50-10.80 [facility] ([place] Comment on above: Performed By: #### C BC, ADIFF, ANEU, CMP, GFR #### [place] [address] XR FLUORO 1-2 HRS TECH TIMEo n 04-16-2020 XR FLUORO 1-2 HRS TECH TIME ORIGINAL XR FLUORO 1-2 HRS TECH TIME [facility]: RIGHT FEMUR FX Technical Details: Tech Time - [id number]; C-Arm # - 11; Total Dose - 8.74mGy; Images - 14; [employer] Analyst - dpm gloves shield mask; History - rt femur fx; Fluoro Time - 1mi 2 sec; FINDINGS: Fluoroscopic spot images were provided for interpretation. They demonstrate placement of an intramedullary ryan and multiple threaded screws fixating a comminuted fracture of the distal femur. Detail is limited. Please see the operative note for details. Interpreted By: Michael Nelson MD Preliminary Report By: Michael Nelson MD Electronically Signed By: Michael Nelson MD Dictated Date: 04/16/2020 12:28:23 AM Prelim Date: 04/16/2020 12:28:23 AM Sign Date: 04/16/2020 12:29:27 AM Ordering Provider:Tray Santo [facility] ([place] CRPon 04-15-2020 CRP [Mass/Vol] mg/L Normal 0.0-1.0 [facility] ([place] Comment on above: Result Comment: No te - New Reference Range in effect 20 Performed By: #### C RP, ESR #### [place] [address] ESRon 04-15-2020 Erythrocyte Sed Rate 6 mm/hr Normal 0-30 [facility] ([place]) Comment on above: Performed By: #### C RP, ESR #### [place] [address] HHon 04-15-2020 Hematocrit (Bld) [Volume fraction] 28.8 % Low 34.0-46.0 [facility] ([place] Comment on above: Performed By: #### C BC, ADIFF, ANEU, CMP, GFR #### [place] [address] Hgb 9.8 G/dL Low 12.0-16.0 [facility] ([place] Comment on above: Performed By: #### C BC, ADIFF, ANEU, CMP, GFR #### [place] [address] Hematocrit (Bld) [Volume fraction] 23.8 % Low 34.0-46.0 [facility] ([place] Comment on above: Performed By: #### H H #### [place] [address] Hgb 8.0 G/dL Low 12.0-16.0 [facility] ([place] Comment on above: Performed By: #### H H #### [place] [address] RBC (Product)on 04-15-2020 RBC Product Ready RBC Ready for Pickup Normal [facility] ([place] Comment on above: Performed By: #### C BC, ADIFF, ANEU, CMP, GFR #### [address] [address] TABOon 04-15-2020 ABO/Rh Interp Positive Invalid Interpretation Code [facility] ([place] Comment on above: Performed By: #### C BC, ADIFF, ANEU, CMP, GFR #### [address] [address] TABSon 04-15-2020 Antibody Screen Tango Negative Normal [facility] ([place]) Comment on above: Performed By: #### C BC, ADIFF, ANEU, CMP, GFR #### [address] [address] .Auto Diffon 04-01-2020 Basophil, Absolute 0.00 10 3/mcL Normal 0.00-0.27 [facility] ([place] Comment on above: Performed By: #### C BC, ADIFF, ANEU, CMP, GFR #### [address] [address] Basophils/100 WBC (Bld) 1.0 % Normal 0.0-2.5 [facility] ([place] Comment on above: Performed By: #### C BC, ADIFF, ANEU, CMP, GFR #### [address] [address] Eosinophil, Absolute 0.50 10 3/mcL Normal 0.00-0.65 A [facility] ([place]) Comment on above: Performed By: #### C BC, ADIFF, ANEU, CMP, GFR #### [address] [address] Eosinophils/100 WBC (Bld) 10.3 % High 0.0-6.0 [facility] ([place] Comment on above: Performed By: #### C BC, ADIFF, ANEU, CMP, GFR #### [address] [address] Lymphocyte, Absolute 1.10 10 3/mcL Normal 0.90-4.32 A [facility] ([place] Comment on above: Performed By: #### C BC, ADIFF, ANEU, CMP, GFR #### [address] [address] Lymphocytes/100 WBC (Bld) 25.4 % Normal 20.0-40.0 [facility] ([place] Comment on above: Performed By: #### C BC, ADIFF, ANEU, CMP, GFR #### [address] [address] Monocyte, Absolute 0.40 10 3/mcL Normal 0.09-1.40 [facility] ([place]) Comment on above: Performed By: #### C BC, ADIFF, ANEU, CMP, GFR #### [address] [address] Monocytes/100 WBC (Bld) 8.7 % Normal 2.0-13.0 [facility] ([place] Comment on above: Performed By: #### C BC, ADIFF, ANEU, CMP, GFR #### [address] [address] Neutrophils/100 WBC (Bld) 54.6 % Normal 50.0-75.0 [facility] ([place] Comment on above: Performed By: #### C BC, ADIFF, ANEU, CMP, GFR #### [address] [address] .GFRon 04-01-2020 GFR Non- >60 Normal [facility] ([place] Comment on above: Result Comment: GFR Population mean for , Non- Americans Ages 20-29 = 116 mL/min/1.73 sq.m. Ages 30-39 = 107 mL/min/1.73 sq.m. Ages 40-49 = 99 mL/min/1.73 sq.m. Ages 50-59 = 93 mL/min/1.73 sq.m. Ages 60-69 = 85 mL/min/1.73 sq.m. Ages 70+ = 75 mL/min/1.73 sq.m. Chronic Kidney Disease: Less than 60 mL/min/1.73 square meters End Stage Renal Disease: Less than 15 mL/min/1.73 square meters Performed By: #### C BC, ADIFF, ANEU, CMP, GFR #### [address] [address] GFR >60 Normal [facility] ([place] Comment on above: Result Comment: GFR Population mean for , Non- Americans Ages 20-29 = 116 mL/min/1.73 sq.m. Ages 30-39 = 107 mL/min/1.73 sq.m. Ages 40-49 = 99 mL/min/1.73 sq.m. Ages 50-59 = 93 mL/min/1.73 sq.m. Ages 60-69 = 85 mL/min/1.73 sq.m. Ages 70+ = 75 mL/min/1.73 sq.m. Chronic Kidney Disease: Less than 60 mL/min/1.73 square meters End Stage Renal Disease: Less than 15 mL/min/1.73 square meters Performed By: #### C BC, ADIFF, ANEU, CMP, GFR #### [place] [address] .NEUABSon 04-01-2020 Neutrophil, Absolute 2.40 10 3/mcL Normal 2.25-8.10 A [facility] ([place] Comment on above: Performed By: #### C BC, ADIFF, ANEU, CMP, GFR #### [address] [address] CBCon 04-01-2020 Erythrocyte distribution width (RBC) [Ratio] 13.6 % Normal 11.5-15.5 [facility] [place] Comment on above: Performed By: #### C BC, ADIFF, ANEU, CMP, GFR #### [address] [address] Hematocrit (Bld) [Volume fraction] 37.0 % Normal 34.0-46.0 [facility] ([place] Comment on above: Performed By: #### C BC, ADIFF, ANEU, CMP, GFR #### [address] [address] Hgb 12.6 G/dL Normal 12.0-16.0 [facility] ([place] Comment on above: Performed By: #### C BC, ADIFF, ANEU, CMP, GFR #### [place] [address] MCH (RBC) [Entitic mass] 32.5 pg Normal 27.0-33.0 [facility] [place] Comment on above: Performed By: #### C BC, ADIFF, ANEU, CMP, GFR #### [place] [address] MCHC 34.1 G/dL Normal 32.0-36.0 [facility] ([place] Comment on above: Performed By: #### C BC, ADIFF, ANEU, CMP, GFR #### [place] [address] MCV (RBC) [Entitic vol] 95.3 fL Normal 80.0-99.0 [facility] ([place] Comment on above: Performed By: #### C BC, ADIFF, ANEU, CMP, GFR #### [place] [address] Platelet 214 10 3/mcL Normal 150-450 [facility] ([place] Comment on above: Performed By: #### C BC, ADIFF, ANEU, CMP, GFR #### [place] [address] Platelet mean volume (Bld) [Entitic vol] 7.4 fL Normal 6.6-10.5 [facility] [place] Comment on above: Performed By: #### C BC, ADIFF, ANEU, CMP, GFR #### [place] [address] RBC 3.88 10 6/mcL Low 4.10-5.30 [facility] ([place] Comment on above: Performed By: #### C BC, ADIFF, ANEU, CMP, GFR #### [place] [address] WBC 4.50 10 3/mcL Normal 4.50-10.80 [facility] ([place] Comment on above: Performed By: #### C BC, ADIFF, ANEU, CMP, GFR #### [place] [address] CMPon 04-01-2020 Albumin Level 3.8 G/dL Normal 3.2-4.8 [facility] [place] Comment on above: Performed By: #### C BC, ADIFF, ANEU, CMP, GFR #### [address] [address] Albumin/Globulin [Mass ratio] 2.1 {ratio} High 0.9-1.6 [facility] [place] Comment on above: Performed By: #### C BC, ADIFF, ANEU, CMP, GFR #### [address] [address] ALP [Catalytic activity/Vol] 109 U/L Normal 38-126 [facility] ([place] Comment on above: Performed By: #### C BC, ADIFF, ANEU, CMP, GFR #### [address] [address] ALT [Catalytic activity/Vol] 28 U/L Normal 10-49 [facility] ([place] Comment on above: Performed By: #### C BC, ADIFF, ANEU, CMP, GFR #### [address] [address] AST [Catalytic activity/Vol] 23 U/L Normal 8-34 [facility] ([place] Comment on above: Performed By: #### C BC, ADIFF, ANEU, CMP, GFR #### [address] [address] Bili Total 0.20 mg/dL Normal 0.20-1.20 [facility] ([place]) Comment on above: Result Comment: Use of this assay is not recommended for patients undergoing treatment with eltrombopag due to the potential for falsely elevated results. Performed By: #### C BC, ADIFF, ANEU, CMP, GFR #### [address] [address] BUN/Creatinine Ratio 21.9 ratio Normal 10.0-22.0 [facility] ([place]) Comment on above: Performed By: #### C BC, ADIFF, ANEU, CMP, GFR #### [address] [address] Calcium [Mass/Vol] 8.8 mg/dL Normal 8.7-10.4 [facility] ([place]) Comment on above: Result Comment: No te - New Reference Range in effect 20 Performed By: #### C BC, ADIFF, ANEU, CMP, GFR #### [address] [address] Chloride [Moles/Vol] 110 mmol/L Normal 98-110 [facility] ([place]) Comment on above: Performed By: #### C BC, ADIFF, ANEU, CMP, GFR #### [address] [address] CO2 [Moles/Vol] 29 mmol/L Normal 22-32 [facility] ([place]) Comment on above: Performed By: #### C BC, ADIFF, ANEU, CMP, GFR #### [address] [address] Creatinine [Mass/Vol] 0.73 mg/dL Normal 0.50-1.20 [facility] ([place]) Comment on above: Performed By: #### C BC, ADIFF, ANEU, CMP, GFR #### [address] [address] Electrolyte Balance 2.0 mEq/L Low 4.0-15.0 [facility] ([place]) Comment on above: Performed By: #### C BC, ADIFF, ANEU, CMP, GFR #### [address] [address] Globulin 1.8 G/dL Normal 1.5-3.8 [facility] ([place]) Comment on above: Performed By: #### C BC, ADIFF, ANEU, CMP, GFR #### [address] [address] Glucose [Mass/Vol] 99 mg/dL Normal 82-115 [facility] ([place]) Comment on above: Performed By: #### C BC, ADIFF, ANEU, CMP, GFR #### [address] [address] Potassium [Moles/Vol] 3.8 mmol/L Normal 3.5-5.0 [facility] ([place]) Comment on above: Performed By: #### C BC, ADIFF, ANEU, CMP, GFR #### [facility] [address] [place] [address] Sodium [Moles/Vol] 141 mmol/L Normal 136-145 [facility] ([place]) Comment on above: Performed By: #### C BC, ADIFF, ANEU, CMP, GFR #### [facility] [address] [place] [address] Total Protein 5.6 G/dL Low 5.7-8.2 [facility] ([place]) Comment on above: Result Comment: No te - New Reference Range in effect 20 Performed By: #### C BC, ADIFF, ANEU, CMP, GFR #### [facility] [address] [place] [address] Urea nitrogen [Mass/Vol] 16.0 mg/dL Normal 8.0-22.0 [facility] ([place]) Comment on above: Performed By: #### C BC, ADIFF, ANEU, CMP, GFR #### [facility] [address] [place] [id number] Office Visiton 04-12-2017 Fall risk assessment No [facility] [employer] Work Phone: Protein mass conc Done [facility] Work Phone: Tobacco smoking status NHIS Never [facility] [employer] Work Phone: Tobacco smoking status SDIS Never smoker [facility] [employer] Work Phone: Office Visiton 09-16-2016 MG Breast screening Normal Bilateral [facility] [employer] Work Phone: Office Visiton 03-16-2015 Protein mass conc Colonoscopy (procedure) [facility] [employer] Work Phone: Office Visiton 09-04-2013 Protein mass conc Done [facility] Work Phone: Office Visit: please make carbajal re mri WITH CONTRAST. thankson 07-03-2013 Tobacco smoking status NHIS never smoker [facility] [employer] Work Phone: No Panel Information [facility] Vital Signs Date Time Vital Sign Value Performing Clinician Faci lity 02-22-2025 09:28-0400 Heart rate 64 /min Linnea Prebish LOG INSPECTOR.NEON INSTALLER Work Phone: [facility] 02-22-2025 09:28-0400 Respiratory rate 18 /min Linnea Prebish LOG INSPECTOR.NEON INSTALLER Work Phone: [facility] 02-22-2025 09:28-0400 SaO2% (BldA) [Mass fraction] 99 % Linnea Prebish LOG INSPECTOR.NEON INSTALLER Work Phone: [facility] 02-13-2025 08:52-0400 Body mass index (BMI) [Ratio] 22.46 kg/m2 Zina Rajguru LOG INSPECTOR.NEON INSTALLER Work Phone: [facility] 02-13-2025 08:52-0400 Body weight 55.7 kg Zina Mitchguru LOG INSPECTOR.NEON INSTALLER Work Phone: [facility] 02-13-2025 08:52-0400 Diastolic blood pressure 81 mm[Hg] Zina Rajguru LOG INSPECTOR.NEON INSTALLER Work Phone: [facility] 02-13-2025 08:52-0400 Heart rate 99 /min Zina Rajguru LOG INSPECTOR.NEON INSTALLER Work Phone: [facility] 02-13-2025 08:52-0400 Respiratory rate 20 /min Zina Rajguru LOG INSPECTOR.NEON INSTALLER Work Phone: [facility] 02-13-2025 08:52-0400 SaO2% (BldA) [Mass fraction] 100 % Zina Rajguru LOG INSPECTOR.NEON INSTALLER Work Phone: [facility] 02-13-2025 08:52-0400 Systolic blood pressure 117 mm[Hg] Zina Rajguru LOG INSPECTOR.NEON INSTALLER Work Phone: [facility] 01-23-2025 09:12-0400 Diastolic blood pressure 92 mm[Hg] Infusion 7 Work Phone: [facility] 01-23-2025 09:12-0400 Heart rate 102 /min Infusion 7 Work Phone: [facility] 01-23-2025 09:12-0400 Systolic blood pressure 134 mm[Hg] Infusion 7 Work Phone: [facility] 12-14-2024 09:28-0400 Body height 158.8 cm Pacc 1 Work Phone: [facility] 12-14-2024 09:28-0400 Body mass index (BMI) [Ratio] 24.23 kg/m2 Pacc 1 Work Phone: [facility] 12-14-2024 09:28-0400 Body temperature 98.01 [degF] Pacc 1 Work Phone: [facility] 12-14-2024 09:28-0400 Body weight 61.05 kg Pacc 1 Work Phone: [facility] 12-14-2024 09:28-0400 Diastolic blood pressure 60 mm[Hg] Pacc 1 Work Phone: [facility] 12-14-2024 09:28-0400 Heart rate 77 /min Pacc 1 Work Phone: [facility] 12-14-2024 09:28-0400 Respiratory rate 12 /min Pacc 1 Work Phone: [facility] 12-14-2024 09:28-0400 SaO2% (BldA) [Mass fraction] 96 % Pacc 1 Work Phone: [facility] 12-14-2024 09:28-0400 Systolic blood pressure 98 mm[Hg] Pacc 1 Work Phone: [facility] 10-30-2024 11:39-0400 Body mass index (BMI) [Ratio] 25 kg/m2 Duyen Foley APRN.CNP Work Phone: [facility] 10-30-2024 11:39-0400 Body weight 63 kg Duyen Foley APRN.CNP Work Phone: [facility] 10-30-2024 11:39-0400 Diastolic blood pressure 81 mm[Hg] Duyen Foley APRN.CNP Work Phone: [facility] 10-30-2024 11:39-0400 Heart rate 102 /min Duyen Foley LOG INSPECTOR.NEON INSTALLER Work Phone: [facility] 10-30-2024 11:39-0400 Systolic blood pressure 115 mm[Hg] Duyen Foley LOG INSPECTOR.NEON INSTALLER Work Phone: [facility] 10-09-2024 09:40-0500 Body height 158.8 cm Dean Tinsley MD Work Phone: [facility] 10-09-2024 09:40-0500 Body mass index (BMI) [Ratio] 25.59 kg/m2 Dean Tinsley MD Work Phone: [facility] 10-09-2024 09:40-0500 Body weight 64.5 kg Dean Tinsley MD Work Phone: [facility] 09-28-2024 08:16-0500 Heart rate 94 /min Linnea Prebish LOG INSPECTOR.NEON INSTALLER Work Phone: [facility] 09-28-2024 08:16-0500 Respiratory rate 18 /min Linnea Prebish LOG INSPECTOR.NEON INSTALLER Work Phone: [facility] 09-28-2024 08:16-0500 SaO2% (BldA) [Mass fraction] 99 % Linnea Prebish LOG INSPECTOR.NEON INSTALLER Work Phone: [facility] 09-26-2024 10:40-0500 Body mass index (BMI) [Ratio] 26.71 kg/m2 Zina Wise LOG INSPECTOR.NEON INSTALLER Work Phone: [facility] 09-26-2024 10:40-0500 Body weight 70.58 kg Zina Wise LOG INSPECTOR.NEON INSTALLER Work Phone: [facility] 09-26-2024 10:40-0500 Diastolic blood pressure 86 mm[Hg] Zina Wise LOG INSPECTOR.NEON INSTALLER Work Phone: [facility] 02-11-2025 10:40-0500 Heart rate 60 /min Zina Rajguru LOG INSPECTOR.NEON INSTALLER Work Phone: [facility] 09-26-2024 10:40-0500 Respiratory rate 16 /min Zina Rajguru LOG INSPECTOR.NEON INSTALLER Work Phone: [facility] 09-26-2024 10:40-0500 Systolic blood pressure 132 mm[Hg] Zina Rajguru LOG INSPECTOR.NEON INSTALLER Work Phone: [facility] 08-11-2024 12:29-0500 Diastolic blood pressure 84 mm[Hg] Tu Jerry MD Work Phone: [facility] 08-11-2024 12:29-0500 Heart rate 78 /min Tu Jerry MD Work Phone: [facility] 08-11-2024 12:29-0500 Respiratory rate 18 /min Tu Jerry MD Work Phone: [facility] 08-11-2024 12:29-0500 SaO2% (BldA) [Mass fraction] 97 % Tu Jerry MD Work Phone: [facility] 08-11-2024 12:29-0500 Systolic blood pressure 116 mm[Hg] Tu Jerry MD Work Phone: [facility] 07-24-2024 07:53-0500 Diastolic blood pressure 82 mm[Hg] Tu Jerry MD Work Phone: [facility] 07-24-2024 07:53-0500 Heart rate 84 /min Tu Jerry MD Work Phone: [facility] 07-24-2024 07:53-0500 Respiratory rate 17 /min Tu Jerry MD Work Phone: [facility] 07-24-2024 07:53-0500 SaO2% (BldA) [Mass fraction] 98 % Tu Jerry MD Work Phone: [facility] 07-24-2024 07:53-0500 Systolic blood pressure 120 mm[Hg] Tu Jerry MD Work Phone: [facility] 07-19-2024 10:01-0500 Body mass index (BMI) [Ratio] 24.33 kg/m2 Sybil Podlogar LOG INSPECTOR.NEON INSTALLER Work Phone: [facility] 07-19-2024 10:01-0500 Body weight 64.3 kg Sybil Podlogar LOG INSPECTOR.NEON INSTALLER Work Phone: [facility] 07-19-2024 10:01-0500 Diastolic blood pressure 76 mm[Hg] Sybil Podlogar LOG INSPECTOR.NEON INSTALLER Work Phone: [facility] 07-19-2024 10:01-0500 Heart rate 94 /min Sybil Podlogar LOG INSPECTOR.NEON INSTALLER Work Phone: [facility] 07-19-2024 10:01-0500 Respiratory rate 18 /min Sybil Podlogar LOG INSPECTOR.NEON INSTALLER Work Phone: [facility] 07-19-2024 10:01-0500 SaO2% (BldA) [Mass fraction] 98 % Sybil Podlogar LOG INSPECTOR.NEON INSTALLER Work Phone: [facility] 07-19-2024 10:01-0500 Systolic blood pressure 108 mm[Hg] Sybil Podlogar LOG INSPECTOR.NEON INSTALLER Work Phone: [facility] 07-18-2024 08:26-0500 Diastolic blood pressure 69 mm[Hg] Infusion 10 Work Phone: [facility] 07-18-2024 08:26-0500 Heart rate 81 /min Infusion 10 Work Phone: [facility] 07-18-2024 08:26-0500 Systolic blood pressure 94 mm[Hg] Infusion 10 Work Phone: [facility] 07-03-2024 08:53-0500 Diastolic blood pressure 79 mm[Hg] Tu Jerry MD Work Phone: [facility] 07-03-2024 08:53-0500 Heart rate 79 /min Tu Jerry MD Work Phone: [facility] 07-03-2024 08:53-0500 SaO2% (BldA) [Mass fraction] 99 % Tu Jerry MD Work Phone: [facility] 07-03-2024 08:53-0500 Systolic blood pressure 119 mm[Hg] Tu Jerry MD Work Phone: [facility] 07-03-2024 08:20-0500 Respiratory rate 18 /min Tu Jerry MD Work Phone: [facility] 06-01-2024 09:17-0400 Heart rate 81 /min Linnea Prebish LOG INSPECTOR.NEON INSTALLER Work Phone: [facility] 06-01-2024 09:17-0400 Respiratory rate 18 /min Linnea Prebish LOG INSPECTOR.NEON INSTALLER Work Phone: [facility] 06-01-2024 09:17-0400 SaO2% (BldA) [Mass fraction] 99 % Linnea Prebish LOG INSPECTOR.NEON INSTALLER Work Phone: [facility] 04-24-2024 10:00-0400 Diastolic blood pressure 68 mm[Hg] Infusion 10 Work Phone: [facility] 04-24-2024 10:00-0400 Heart rate 75 /min Infusion 10 Work Phone: [facility] 04-24-2024 10:00-0400 Systolic blood pressure 102 mm[Hg] Infusion 10 Work Phone: [facility] 03-02-2024 10:12-0400 Heart rate 73 /min Linnea Prebish LOG INSPECTOR.NEON INSTALLER Work Phone: [facility] 03-02-2024 10:12-0400 Respiratory rate 16 /min Linnea Prebish LOG INSPECTOR.NEON INSTALLER Work Phone: [facility] 03-02-2024 10:12-0400 SaO2% (BldA) [Mass fraction] 98 % Linnea Prebish LOG INSPECTOR.NEON INSTALLER Work Phone: [facility] 01-18-2024 09:27-0400 Body mass index (BMI) [Ratio] 23.72 kg/m2 Sybil Podlogar LOG INSPECTOR.NEON INSTALLER Work Phone: [facility] 01-18-2024 09:27-0400 Body weight 62.69 kg Sybil Podlogar LOG INSPECTOR.NEON INSTALLER Work Phone: [facility] 01-18-2024 09:27-0400 Diastolic blood pressure 68 mm[Hg] Sybil Podlogar LOG INSPECTOR.NEON INSTALLER Work Phone: [facility] 01-18-2024 09:27-0400 Heart rate 82 /min Sybil Podlogar LOG INSPECTOR.NEON INSTALLER Work Phone: [facility] 01-18-2024 09:27-0400 Respiratory rate 16 /min Sybil Podlogar LOG INSPECTOR.NEON INSTALLER Work Phone: [facility] 01-18-2024 09:27-0400 SaO2% (BldA) [Mass fraction] 98 % Sybil Podlogar LOG INSPECTOR.NEON INSTALLER Work Phone: [facility] 01-18-2024 09:27-0400 Systolic blood pressure 94 mm[Hg] Sybil Podlogar LOG INSPECTOR.NEON INSTALLER Work Phone: [facility] 01-17-2024 10:00-0400 Diastolic blood pressure 70 mm[Hg] Infusion 10 Work Phone: [facility] 01-17-2024 10:00-0400 Heart rate 74 /min Infusion 10 Work Phone: [facility] 01-17-2024 10:00-0400 Systolic blood pressure 107 mm[Hg] Infusion 10 Work Phone: [facility] 10-29-2023 09:13-0400 Heart rate 86 /min Linnea Prebish LOG INSPECTOR.NEON INSTALLER Work Phone: [facility] 10-29-2023 09:13-0400 Respiratory rate 16 /min Linnea Prebish LOG INSPECTOR.NEON INSTALLER Work Phone: [facility] 10-29-2023 09:13-0400 SaO2% (BldA) [Mass fraction] 100 % Linnea Prebish LOG INSPECTOR.NEON INSTALLER Work Phone: [facility] 09-30-2023 08:33-0500 Heart rate 101 /min Linnea Prebish LOG INSPECTOR.NEON INSTALLER Work Phone: [facility] 09-30-2023 08:33-0500 Respiratory rate 18 /min Linnea Prebish LOG INSPECTOR.NEON INSTALLER Work Phone: [facility] 09-30-2023 08:33-0500 SaO2% (BldA) [Mass fraction] 99 % Linnea Prebish LOG INSPECTOR.NEON INSTALLER Work Phone: [facility] 07-22-2023 14:29-0500 Diastolic blood pressure 86 mm[Hg] Tu Jerry MD Work Phone: [facility] 07-22-2023 14:29-0500 Heart rate 76 /min Tu Jerry MD Work Phone: [facility] 07-22-2023 14:29-0500 Respiratory rate 18 /min Tu Jerry MD Work Phone: [facility] 07-22-2023 14:29-0500 SaO2% (BldA) [Mass fraction] 98 % Tu Jerry MD Work Phone: [facility] 07-22-2023 14:29-0500 Systolic blood pressure 124 mm[Hg] Tu Jerry MD Work Phone: [facility] 07-19-2023 08:41-0500 Body weight 65.68 kg Eugene Sanchez MD Work Phone: [facility] 07-19-2023 08:41-0500 Diastolic blood pressure 80 mm[Hg] Eugene Sanchez MD Work Phone: [facility] 07-19-2023 08:41-0500 Heart rate 83 /min Eugene Sanchez MD Work Phone: [facility] 07-19-2023 08:41-0500 Respiratory rate 16 /min Eugene Sanchez MD Work Phone: [facility] 07-19-2023 08:41-0500 SaO2% (BldA) [Mass fraction] 99 % Eugene Sanchez MD Work Phone: [facility] 07-19-2023 08:41-0500 Systolic blood pressure 116 mm[Hg] Eugene Sanchez MD Work Phone: [facility] 06-18-2023 13:38-0400 Diastolic blood pressure 64 mm[Hg] Infusion 8 Work Phone: [facility] 06-18-2023 13:38-0400 Heart rate 78 /min Infusion 8 Work Phone: [facility] 06-18-2023 13:38-0400 Systolic blood pressure 96 mm[Hg] Infusion 8 Work Phone: [facility] 06-15-2023 08:47-0400 Body weight 61.87 kg Zina Rajguru LOG INSPECTOR.NEON INSTALLER Work Phone: [facility] 06-15-2023 08:47-0400 Diastolic blood pressure 72 mm[Hg] Zina Rajguru LOG INSPECTOR.NEON INSTALLER Work Phone: [facility] 06-15-2023 08:47-0400 Heart rate 68 /min Zina Rajguru LOG INSPECTOR.NEON INSTALLER Work Phone: [facility] 06-15-2023 08:47-0400 Systolic blood pressure 104 mm[Hg] Zina Rajguru LOG INSPECTOR.NEON INSTALLER Work Phone: [facility] 06-11-2023 14:19-0400 Diastolic blood pressure 70 mm[Hg] Ashley Blackman MD Work Phone: [facility] 06-11-2023 14:19-0400 Heart rate 83 /min Ashley Blackman MD Work Phone: [facility] 06-11-2023 14:19-0400 Respiratory rate 18 /min Ashley Blackman MD Work Phone: [facility] 06-11-2023 14:19-0400 SaO2% (BldA) [Mass fraction] 98 % Ashley Blackman MD Work Phone: [facility] 06-11-2023 14:19-0400 Systolic blood pressure 100 mm[Hg] Ashley Blackman MD Work Phone: [facility] 05-18-2023 08:58-0400 Body weight 61.6 kg Zina Rajguru LOG INSPECTOR.NEON INSTALLER Work Phone: [facility] 05-18-2023 08:58-0400 Diastolic blood pressure 70 mm[Hg] Zina Rajguru LOG INSPECTOR.NEON INSTALLER Work Phone: [facility] 05-18-2023 08:58-0400 Heart rate 88 /min Zina Rajguru LOG INSPECTOR.NEON INSTALLER Work Phone: [facility] 05-18-2023 08:58-0400 Systolic blood pressure 118 mm[Hg] Zina Rajguru LOG INSPECTOR.NEON INSTALLER Work Phone: [facility] 04-29-2023 09:41-0400 Heart rate 63 /min Ashley Blackman MD Work Phone: [facility] 04-29-2023 09:41-0400 Respiratory rate 18 /min Ashley Blackman MD Work Phone: [facility] 04-29-2023 09:41-0400 SaO2% (BldA) [Mass fraction] 100 % Ashley Blackman MD Work Phone: [facility] 04-28-2023 12:48-0400 Body height 162.6 cm Shahrzad Whitehead MD Work Phone: [facility] 04-28-2023 12:48-0400 Body weight 63.5 kg Shahrzad Whitehead MD Work Phone: [facility] 04-28-2023 12:48-0400 Diastolic blood pressure 77 mm[Hg] Shahrzad Whitehead MD Work Phone: [facility] 04-28-2023 12:48-0400 Heart rate 86 /min Shahrzad Whitehead MD Work Phone: [facility] 04-28-2023 12:48-0400 Respiratory rate 18 /min Shahrzad Whitehead MD Work Phone: [facility] 04-28-2023 12:48-0400 SaO2% (BldA) [Mass fraction] 100 % Shahrzad Whitehead MD Work Phone: [facility] 04-28-2023 12:48-0400 Systolic blood pressure 119 mm[Hg] Shahrzad Whitehead MD Work Phone: [facility] 04-26-2023 10:24-0400 Body weight 62.41 kg Sybil Podlogar LOG INSPECTOR.NEON INSTALLER Work Phone: [facility] 04-26-2023 10:24-0400 Diastolic blood pressure 70 mm[Hg] Sybil Podlogar LOG INSPECTOR.NEON INSTALLER Work Phone: [facility] 04-26-2023 10:24-0400 Heart rate 83 /min Sybil Podlogar LOG INSPECTOR.NEON INSTALLER Work Phone: [facility] 04-26-2023 10:24-0400 Respiratory rate 16 /min Sybil Podlogar LOG INSPECTOR.NEON INSTALLER Work Phone: [facility] 04-26-2023 10:24-0400 SaO2% (BldA) [Mass fraction] 96 % Sybil Podlogar LOG INSPECTOR.NEON INSTALLER Work Phone: [facility] 04-26-2023 10:24-0400 Systolic blood pressure 130 mm[Hg] Sybil Podlogar LOG INSPECTOR.NEON INSTALLER Work Phone: [facility] 04-20-2023 00:24-0400 Heart rate 77 /min [facility] 04-20-2023 00:24-0400 Respiratory rate 18 /min [facility] 04-20-2023 00:24-0400 SaO2% (BldA) [Mass fraction] 99 % [facility] 04-19-2023 23:07-0400 Body temperature 96.7 [degF] [facility] 04-19-2023 23:04-0400 Diastolic blood pressure 81 mm[Hg] [facility] 04-19-2023 23:04-0400 Systolic blood pressure 116 mm[Hg] [facility] 04-19-2023 22:32-0400 Body height 162.56 cm [facility] 04-19-2023 22:32-0400 Body mass index (BMI) [Ratio] 25.4 kg/m2 [facility] 04-19-2023 22:32-0400 Body weight 67.1 kg [facility] 04-06-2023 15:35-0400 Body weight 60.78 kg Zina Mitchguru LOG INSPECTOR.NEON INSTALLER Work Phone: [facility] 04-06-2023 15:35-0400 Diastolic blood pressure 78 mm[Hg] Zina Rajguru LOG INSPECTOR.NEON INSTALLER Work Phone: [facility] 04-06-2023 15:35-0400 Heart rate 100 /min Zina Guerreroru LOG INSPECTOR.NEON INSTALLER Work Phone: [facility] 04-06-2023 15:35-0400 Systolic blood pressure 122 mm[Hg] Zina Rajguru LOG INSPECTOR.NEON INSTALLER Work Phone: [facility] 03-16-2023 09:35-0400 Body weight 61.96 kg Eugene Sanchez MD Work Phone: [facility] 03-16-2023 09:35-0400 Diastolic blood pressure 64 mm[Hg] Eugene Sanchez MD Work Phone: [facility] 03-16-2023 09:35-0400 Heart rate 71 /min Eugene Sanchez MD Work Phone: [facility] 03-16-2023 09:35-0400 Respiratory rate 16 /min Eugene Sanchez MD Work Phone: [facility] 03-16-2023 09:35-0400 SaO2% (BldA) [Mass fraction] 99 % Eugene Sanchez MD Work Phone: [facility] 03-16-2023 09:35-0400 Systolic blood pressure 100 mm[Hg] Eugene Sanchez MD Work Phone: [facility] 02-26-2023 10:12-0400 Diastolic blood pressure 70 mm[Hg] Infusion 10 Work Phone: [facility] 02-26-2023 10:12-0400 Heart rate 76 /min Infusion 10 Work Phone: [facility] 02-26-2023 10:12-0400 Systolic blood pressure 113 mm[Hg] Infusion 10 Work Phone: [facility] 01-22-2023 09:36-0400 Body height 162.6 cm [employer] Work Phone: [facility] 01-22-2023 09:36-0400 Body weight 60.33 kg [employer] Work Phone: [facility] 01-22-2023 09:36-0400 Heart rate 78 /min [employer] Work Phone: [facility] 01-22-2023 09:36-0400 Respiratory rate 18 /min [employer] Work Phone: [facility] 01-15-2023 08:58-0400 Body weight 59.97 kg Sybil Podlogar LOG INSPECTOR.NEON INSTALLER Work Phone: [facility] 01-15-2023 08:58-0400 Diastolic blood pressure 68 mm[Hg] Sybil Podlogar LOG INSPECTOR.NEON INSTALLER Work Phone: [facility] 01-15-2023 08:58-0400 Heart rate 88 /min Sybil Podlogar LOG INSPECTOR.NEON INSTALLER Work Phone: [facility] 01-15-2023 08:58-0400 Respiratory rate 16 /min Sybil Podlogar LOG INSPECTOR.NEON INSTALLER Work Phone: [facility] 01-15-2023 08:58-0400 SaO2% (BldA) [Mass fraction] 99 % Sybil Podlogar LOG INSPECTOR.NEON INSTALLER Work Phone: [facility] 01-15-2023 08:58-0400 Systolic blood pressure 96 mm[Hg] Sybil Podlogar LOG INSPECTOR.NEON INSTALLER Work Phone: [facility] 11-26-2022 14:46-0400 Diastolic blood pressure 70 mm[Hg] Tu Swartz MD Work Phone: [facility] 11-26-2022 14:46-0400 Heart rate 77 /min Tu Swartz MD Work Phone: [facility] 11-26-2022 14:46-0400 Respiratory rate 16 /min Tu Swratz MD Work Phone: [facility] 11-26-2022 14:46-0400 SaO2% (BldA) [Mass fraction] 99 % Tu Swartz MD Work Phone: [facility] 11-26-2022 14:46-0400 Systolic blood pressure 108 mm[Hg] Tu Swartz MD Work Phone: [facility] 10-21-2022 07:58-0500 Body weight 60.78 kg Zina Rajguru LOG INSPECTOR.NEON INSTALLER Work Phone: [facility] 10-21-2022 07:58-0500 Diastolic blood pressure 64 mm[Hg] Zina Rajguru LOG INSPECTOR.NEON INSTALLER Work Phone: [facility] 10-21-2022 07:58-0500 Heart rate 80 /min Zina Rajguru LOG INSPECTOR.NEON INSTALLER Work Phone: [facility] 10-21-2022 07:58-0500 Systolic blood pressure 108 mm[Hg] Zina Rajguru LOG INSPECTOR.NEON INSTALLER Work Phone: [facility] 10-14-2022 12:51-0500 Body height 162.6 cm Shahrzad Whitehead MD Work Phone: [facility] 10-14-2022 12:51-0500 Body weight 57.61 kg Shahrzad Whitehead MD Work Phone: [facility] 10-14-2022 12:51-0500 Diastolic blood pressure 71 mm[Hg] Shahrzad Whitehead MD Work Phone: [facility] 10-14-2022 12:51-0500 Heart rate 89 /min Shahrzad Whitehead MD Work Phone: [facility] 10-14-2022 12:51-0500 Respiratory rate 18 /min Shahrzad Whitehead MD Work Phone: [facility] 10-14-2022 12:51-0500 SaO2% (BldA) [Mass fraction] 97 % Shahrzad Whitehead MD Work Phone: [facility] 10-14-2022 12:51-0500 Systolic blood pressure 93 mm[Hg] Shahrzad Whitehead MD Work Phone: [facility] 09-10-2022 15:47-0500 Diastolic blood pressure 78 mm[Hg] Tu Swartz MD Work Phone: [facility] 09-10-2022 15:47-0500 Heart rate 78 /min Tu Swartz MD Work Phone: [facility] 09-10-2022 15:47-0500 Respiratory rate 12 /min Tu Swartz MD Work Phone: [facility] 09-10-2022 15:47-0500 SaO2% (BldA) [Mass fraction] 99 % Tu Swartz MD Work Phone: [facility] 09-10-2022 15:47-0500 Systolic blood pressure 114 mm[Hg] Tu Swartz MD Work Phone: [facility] 08-27-2022 12:00-0500 Diastolic blood pressure 64 mm[Hg] Tu Swartz MD Work Phone: [facility] 08-27-2022 12:00-0500 Heart rate 77 /min Tu Swartz MD Work Phone: [facility] 08-27-2022 12:00-0500 Respiratory rate 16 /min Tu Swartz MD Work Phone: [facility] 08-27-2022 12:00-0500 SaO2% (BldA) [Mass fraction] 96 % Tu Swartz MD Work Phone: [facility] 08-27-2022 12:00-0500 Systolic blood pressure 97 mm[Hg] Tu Swartz MD Work Phone: [facility] 08-25-2022 14:19-0500 Body weight 61.15 kg Sybil Podlogar LOG INSPECTOR.NEON INSTALLER Work Phone: [facility] 08-25-2022 14:19-0500 Diastolic blood pressure 90 mm[Hg] Sybil Podlogar LOG INSPECTOR.NEON INSTALLER Work Phone: [facility] 08-25-2022 14:19-0500 Heart rate 86 /min Sybil Podlogar LOG INSPECTOR.NEON INSTALLER Work Phone: [facility] 08-25-2022 14:19-0500 Respiratory rate 16 /min Sybil Podlogar LOG INSPECTOR.NEON INSTALLER Work Phone: [facility] 08-25-2022 14:19-0500 SaO2% (BldA) [Mass fraction] 99 % Sybil Podlogar LOG INSPECTOR.NEON INSTALLER Work Phone: [facility] 08-25-2022 14:19-0500 Systolic blood pressure 110 mm[Hg] Sybil Podlogar LOG INSPECTOR.NEON INSTALLER Work Phone: [facility] 07-17-2022 09:02-0500 Body weight 60.69 kg Sybil Podlogar LOG INSPECTOR.NEON INSTALLER Work Phone: [facility] 07-17-2022 09:02-0500 Diastolic blood pressure 72 mm[Hg] Sybil Podlogar LOG INSPECTOR.NEON INSTALLER Work Phone: [facility] 07-17-2022 09:02-0500 Heart rate 93 /min Sybil Podlogar LOG INSPECTOR.NEON INSTALLER Work Phone: [facility] 07-17-2022 09:02-0500 Respiratory rate 16 /min Sybil Podlogar LOG INSPECTOR.NEON INSTALLER Work Phone: [facility] 07-17-2022 09:02-0500 SaO2% (BldA) [Mass fraction] 100 % Sybil Podlogar LOG INSPECTOR.NEON INSTALLER Work Phone: [facility] 07-17-2022 09:02-0500 Systolic blood pressure 100 mm[Hg] Sybil Samaniego LOG INSPECTOR.NEON INSTALLER Work Phone: [facility] 07-01-2022 14:18-0500 Diastolic blood pressure 75 mm[Hg] Tu Swartz MD Work Phone: [facility] 07-01-2022 14:18-0500 Heart rate 85 /min Tu Swartz MD Work Phone: [facility] 07-01-2022 14:18-0500 Respiratory rate 18 /min Tu Swartz MD Work Phone: [facility] 07-01-2022 14:18-0500 SaO2% (BldA) [Mass fraction] 98 % Tu Swartz MD Work Phone: [facility] 07-01-2022 14:18-0500 Systolic blood pressure 106 mm[Hg] Tu Swartz MD Work Phone: [facility] 06-12-2022 13:24-0400 Heart rate 82 /min Tu Swartz MD Work Phone: [facility] 06-12-2022 13:24-0400 Respiratory rate 16 /min Tu Swartz MD Work Phone: [facility] 06-12-2022 13:24-0400 SaO2% (BldA) [Mass fraction] 97 % Tu Swartz MD Work Phone: [facility] 04-16-2022 13:09-0400 Heart rate 85 /min Kae Diehl LOG INSPECTOR.NEON INSTALLER Work Phone: [facility] 04-16-2022 13:09-0400 Respiratory rate 16 /min Kae Diehl LOG INSPECTOR.NEON INSTALLER Work Phone: [facility] 04-16-2022 13:09-0400 SaO2% (BldA) [Mass fraction] 97 % Kae Diehl LOG INSPECTOR.NEON INSTALLER Work Phone: [facility] 04-02-2022 12:24-0400 Body height 162.6 cm Kae Diehl LOG INSPECTOR.NEON INSTALLER Work Phone: [facility] 04-02-2022 12:24-0400 Body weight 61.24 kg Kae Diehl LOG INSPECTOR.NEON INSTALLER Work Phone: [facility] 03-11-2022 09:41-0400 Diastolic blood pressure 81 mm[Hg] Tu Swartz MD Work Phone: [facility] 03-11-2022 09:41-0400 Heart rate 81 /min Tu Swartz MD Work Phone: [facility] 03-11-2022 09:41-0400 Respiratory rate 18 /min Tu Swartz MD Work Phone: [facility] 03-11-2022 09:41-0400 SaO2% (BldA) [Mass fraction] 98 % Tu Swartz MD Work Phone: [facility] 03-11-2022 09:41-0400 Systolic blood pressure 115 mm[Hg] Tu Swartz MD Work Phone: [facility] 02-26-2022 15:51-0400 Heart rate 84 /min Ashley Blackman MD Work Phone: [facility] 02-26-2022 15:51-0400 Respiratory rate 16 /min Ashley Blackman MD Work Phone: [facility] 02-26-2022 15:51-0400 SaO2% (BldA) [Mass fraction] 99 % Ashley Blackman MD Work Phone: [facility] 02-23-2022 09:26-0400 Body height 162.6 cm Dana Vexochitlvitz PA-C Work Phone: [facility] 02-23-2022 09:26-0400 Body weight 61.24 kg Dana Vetovitz PA-C Work Phone: [facility] 02-20-2022 10:50-0400 Body weight 62.96 kg Sybil Samaniego LOG INSPECTOR.NEON INSTALLER Work Phone: [facility] 02-20-2022 10:50-0400 Diastolic blood pressure 72 mm[Hg] Sybil Podlogar LOG INSPECTOR.NEON INSTALLER Work Phone: [facility] 02-20-2022 10:50-0400 Heart rate 82 /min Sybil Podlogar LOG INSPECTOR.NEON INSTALLER Work Phone: [facility] 02-20-2022 10:50-0400 Respiratory rate 16 /min Sybil Podlogar LOG INSPECTOR.NEON INSTALLER Work Phone: [facility] 02-20-2022 10:50-0400 SaO2% (BldA) [Mass fraction] 98 % Sybil Podlogar LOG INSPECTOR.NEON INSTALLER Work Phone: [facility] 02-20-2022 10:50-0400 Systolic blood pressure 104 mm[Hg] Sybil Podlogar LOG INSPECTOR.NEON INSTALLER Work Phone: [facility] 01-14-2022 10:56-0400 Body weight 61.69 kg Zina Rajguru LOG INSPECTOR.NEON INSTALLER Work Phone: [facility] 01-14-2022 10:56-0400 Diastolic blood pressure 64 mm[Hg] Zina Rajguru LOG INSPECTOR.NEON INSTALLER Work Phone: [facility] 01-14-2022 10:56-0400 Heart rate 74 /min Zina Rajguru LOG INSPECTOR.NEON INSTALLER Work Phone: [facility] 01-14-2022 10:56-0400 Systolic blood pressure 102 mm[Hg] Zina Rajguru LOG INSPECTOR.NEON INSTALLER Work Phone: [facility] 12-04-2021 08:26-0400 Heart rate 90 /min Kae Fazal LOG INSPECTOR.NEON INSTALLER Work Phone: [facility] 12-04-2021 08:26-0400 Respiratory rate 16 /min Kae Fazal LOG INSPECTOR.NEON INSTALLER Work Phone: [facility] 12-04-2021 08:26-0400 SaO2% (BldA) [Mass fraction] 99 % Kae Electra LOG INSPECTOR.NEON INSTALLER Work Phone: [facility] 11-17-2021 12:57-0400 Body height 162.6 cm Elva Loffelmann PA-C Work Phone: [facility] 11-17-2021 12:57-0400 Body weight 60.46 kg Elva Loffelmann PA-C Work Phone: [facility] 11-17-2021 12:57-0400 Diastolic blood pressure 70 mm[Hg] Elva Loffelmann PA-C Work Phone: [facility] 11-17-2021 12:57-0400 Heart rate 91 /min Elva Loffelmann PA-C Work Phone: [facility] 11-17-2021 12:57-0400 Respiratory rate 18 /min Elva Loffelmann PA-C Work Phone: [facility] 11-17-2021 12:57-0400 SaO2% (BldA) [Mass fraction] 100 % Elva Loffelmann PA-C Work Phone: [facility] 11-17-2021 12:57-0400 Systolic blood pressure 108 mm[Hg] Elva Loffelmann PA-C Work Phone: [facility] 11-12-2021 08:52-0400 Diastolic blood pressure 80 mm[Hg] Tu Swartz MD Work Phone: [facility] 11-12-2021 08:52-0400 Heart rate 97 /min Tu Swartz MD Work Phone: [facility] 11-12-2021 08:52-0400 Respiratory rate 20 /min Tu Swartz MD Work Phone: [facility] 11-12-2021 08:52-0400 SaO2% (BldA) [Mass fraction] 100 % Tu Swartz MD Work Phone: [facility] 11-12-2021 08:52-0400 Systolic blood pressure 108 mm[Hg] Tu Swartz MD Work Phone: [facility] 04-12-2017 15:18-0400 BMI (Body Mass Index) 20.94 kg/m2 [facility] Work Phone: 04-12-2017 15:18-0400 Body Temperature 98 [degF] [facility] Work Phone: 04-12-2017 15:18-0400 Body Temperature 98.01 [degF] [facility] Work Phone: 04-12-2017 15:18-0400 BP Diastolic 82 mm[Hg] [facility] Work Phone: 04-12-2017 15:18-0400 BP Systolic 119 mm[Hg] [facility] Work Phone: 04-12-2017 15:18-0400 Height 162.56 cm [facility] Work Phone: 04-12-2017 15:18-0400 Pulse (Heart Rate) 81 /min [facility] Work Phone: 04-12-2017 15:18-0400 Respiratory Rate 18 /min [facility] Work Phone: 04-12-2017 15:18-0400 [facility] Work Phone: 08-04-2013 11:43-0500 BP Diastolic 72 mm[Hg] Veronique Quezada [facility] Work Phone: 08-04-2013 11:43-0500 BP Systolic 114 mm[Hg] Veronique Quezada [facility] Work Phone: 08-04-2013 11:43-0500 Weight 64.41 kg Veroinque Damien [facility] Work Phone: 07-20-2013 09:28-0500 Pulse (Heart Rate) 70 /min Veronique Quezada [facility] Work Phone: 07-03-2013 09:43-0500 Height 162.56 cm Veronique Quezada [facility] Work Phone: Encounters Encounter Date Encounter Type Care Provider Facility Start: 02-23-2025 End: 02-23-2025 Telephone encounter Linnea Brumfield APRN.CNP Work Phone: [facility] Comment on above: Medication Authoriza tion (Cyclobenzaprine HCl 10MG tablets - approved 710/ - 08/15/2099/) Start: 02-22-2025 End: 02-22-2025 Patient encounter procedure Linnea Brumfield APRN.NEON INSTALLER Work Phone: [facility] Comment on above: Pain in right hip (P rimary Dx); Traumatic arthritis of right knee; Chronic pain of right lower extremity; Lumbar spondylosis; Lumbar facet arthropathy Start: 02-20-2025 End: 02-20-2025 Telephone encounter Gina Tomas PA-C Work Phone: Neurology Comment on above: Infusion (Vyepti) Start: 02-19-2025 ambulatory Rashmi Salinas [facility] Faci lity:[facility] Start: 02-13-2025 End: 02-13-2025 Telephone encounter Dean Tinsley MD Work Phone: [facility] Comment on above: Refill Request Start: 02-13-2025 End: 02-13-2025 Office outpatient visit 40 minutes Zina Wise APRN.NEON INSTALLER Work Phone: Psychiatry Comment on above: Mild episode of recu rrent major depressive disorder (Primary Dx); Primary insomnia; Panic disorder with agoraphobia; Trauma and stressor-related disorder; Delirium due to known physiological condition Start: 02-13-2025 End: 02-13-2025 ambulatory EUGENE SANCHEZ Facility:[facility] Start: 02-07-2025 End: 02-07-2025 Postop follow up visit related to original px Dean Tinsley MD Work Phone: Orthopaedics Comment on above: Status post right kn ee replacement (Primary Dx) Start: 02-07-2025 End: 02-07-2025 Subsequent hospital visit by physician Radio General Eren Ingram Work Phone: Radiology Comment on above: Status post right kn ee replacement [Z96.651] Start: 02-07-2025 End: 02-07-2025 ambulatory [facility] Facility:[facility] Start: 02-01-2025 End: 02-02-2025 Telephone encounter Zina Wise APRN.CNP Work Phone: Psychiatry Start: 01-24-2025 End: 01-25-2025 Telephone encounter Zina Wise APRN.CNP Work Phone: Psychiatry Comment on above: Patient Question Start: 01-23-2025 End: 01-23-2025 ambulatory Infusion Main Chair 7 Work Phone: Neurology Comment on above: Intractable 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 (Primary Dx) Start: 01-18-2025 End: 01-18-2025 Refill Zian Wise APRN.CNP Work Phone: Psychiatry Comment on above: Refill Request Start: 01-17-2025 End: 01-17-2025 Patient encounter procedure Katherine Dowd MD Work Phone: Ophthalmology Comment on above: Low-tension glaucoma of both eyes, severe stage (Primary Dx); Prediabetes; Combined forms of age-related cataract of left eye Start: 01-17-2025 End: 01-17-2025 ambulatory [facility] Facility:[facility] Start: 01-11-2025 End: 01-11-2025 Nursing evaluation of patient and report Joann Wen RN Work Phone: Orthopaedics Comment on above: Status post right kn ee replacement (Primary Dx) Refill Request Start: 01-11-2025 End: 01-11-2025 ambulatory [facility] Facility:[facility] Start: 01-11-2025 End: 01-11-2025 Subsequent hospital visit by physician Radio [facility] Work Phone: Radiology Comment on above: Status post right kn ee replacement [Z96.651] Start: 12-29-2024 End: 01-01-2025 E-mail encounter from caregiver Dean Tinsley MD Work Phone: Orthopaedics Start: 12-29-2024 End: 01-01-2025 Patient encounter procedure Dean Tinsley MD Work Phone: Orthopaedics Comment on above: Appointment Request Start: 12-25-2024 ambulatory Cathy Briggs [facility] Start: 12-25-2024 End: 01-05-2025 Evaluation and management of inpatient Cathy Briggs Facility:[facility] Start: 12-22-2024 End: 12-22-2024 Telephone encounter Sarath Auguste [facility] Comment on above: Home Care (Confirmat ion Call ) Start: 12-21-2024 End: 12-25-2024 Evaluation and management of inpatient DEAN TINSLEY Facility:[facility] Start: 12-18-2024 End: 12-18-2024 Telemedicine consultation with patient Gina Thom PEREZ Work Phone: Neurology Start: 12-18-2024 End: 12-18-2024 ambulatory Gina Thom PEREZ Work Phone: Neurology Comment on above: Chronic migraine wit hout aura without status migrainosus, not intractable (Primary Dx); Intractable 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 Start: 12-15-2024 End: 12-15-2024 Follow-up encounter Eugene Sanchez MD Work Phone: [facility] [place] Start: 12-14-2024 End: 02-13-2025 Follow-up encounter Arlin Martines APRN.CNP Work Phone: Kidney Medicine Start: 12-14-2024 ambulatory EUGENE Blackwood acility:[facility] Start: 12-14-2024 End: 12-14-2024 Admission to establishment Pac [place] 1 Work Phone: Pre Anesthesia Start: 12-14-2024 End: 12-14-2024 Preprocedural examination done Pac [place] 1 Work Phone: [facility] Start: 12-14-2024 End: 12-15-2024 Telephone encounter Eugene Sanchez MD Work Phone: [facility] [place] Comment on above: Patient Question Refill Request Pre-operative examin ation (Primary Dx); Insomnia, unspecified type; Intractable 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; Seizure (HCC); Hypertension, unspecified type; Pure hypercholesterolemia; S/P gastric bypass; Hypothyroidism due to medication; Other iron deficiency anemia; Branch retinal vein occlusion of left eye, unspecified complication status (HCC); Osteoporosis, unspecified osteoporosis type, unspecified pathological fracture presence; BHAVIK (generalized anxiety disorder) [F41.1 (ICD-10-CM)]; Major depressive disorder, recurrent episode, moderate (HCC); H/O gastric bypass; Prediabetes; Transient ischemic attack; Chronic migraine without aura without status migrainosus, not intractable; PUD (peptic ulcer disease); Malabsorption of iron ([facility]) Start: 12-14-2024 End: 12-14-2024 ambulatory EUGENE SANCHEZ Facility:[facility] Start: 12-12-2024 End: 12-14-2024 Refill Zina Wise APRN.CNP Work Phone: Psychiatry Comment on above: Refill Request Start: 12-09-2024 End: 12-11-2024 Get Medical Advice Zina Wise APRN.CNP Work Phone: Psychiatry Comment on above: refill and appt Start: 12-07-2024 ambulatory EUGENE SANCHEZ acility:[facility] Start: 12-07-2024 Encounter for other [facility]procedural examination [facility] Start: 11-30-2024 End: 11-30-2024 Telephone encounter Linnea Brumfield APRN.CNP Work Phone: [facility] Comment on above: future appt Start: 11-30-2024 End: 11-30-2024 Patient encounter procedure Linnea Brumfield APRN.CNP Work Phone: [facility] Comment on above: Traumatic arthritis of right knee (Primary Dx); Chronic pain of right lower extremity; Pain in right hip; Lumbar facet arthropathy Start: 11-30-2024 End: 11-30-2024 Telemedicine consultation with patient Linnea Brumfield GITA.NEON INSTALLER Work Phone: [facility] Start: 11-30-2024 End: 11-30-2024 ambulatory [facility] Facility:[facility] Start: 11-22-2024 End: 11-27-2024 Telephone encounter Dean Tinsley MD Work Phone: [address] Comment on above: Pre-Op Teaching Start: 11-17-2024 End: 11-17-2024 Refill Zina Wise APRN.NEON INSTALLER Work Phone: Psychiatry Comment on above: Refill Request Start: 11-17-2024 End: 11-20-2024 Refill Zina Wise APRN.NEON INSTALLER Work Phone: Psychiatry Comment on above: Refill Request Start: 10-30-2024 End: 10-30-2024 Patient encounter procedure Duyen Foley APRN.NEON INSTALLER Work Phone: [facility] [place] Comment on above: Bacterial conjunctiv itis (Primary Dx) Start: 10-30-2024 End: 10-30-2024 ambulatory EUGENE SANCHEZ Facility:[facility] Start: 10-20-2024 End: 10-20-2024 Refill Zina Wise APRN.NEON INSTALLER Work Phone: Psychiatry Comment on above: Refill Request Start: 10-19-2024 End: 10-24-2024 Telephone encounter Zina Wise APRN.NEON INSTALLER Work Phone: Psychiatry Comment on above: Medication Problem Start: 10-12-2024 End: 10-13-2024 Telephone encounter Eugene Sanchez MD Work Phone: [facility] [place] Comment on above: Patient Question Start: 10-09-2024 End: 10-09-2024 Office outpatient visit 40 minutes Dean Tinsley MD Work Phone: Orthopaedics Comment on above: Post-traumatic osteo arthritis of right knee (Primary Dx); Preop examination Start: 10-09-2024 End: 10-09-2024 Orders Only Dean Tinsley MD Work Phone: Orthopaedics Comment on above: Traumatic arthritis of right knee (Primary Dx) Start: 10-09-2024 End: 10-09-2024 Preprocedural examination done Dean Tinsley MD Work Phone: [facility] Start: 10-03-2024 End: 10-03-2024 Telephone encounter Gina Tomas PA-C Work Phone: Neurology Comment on above: Insurance Authorizat ion (PA for [employer]) Start: 10-02-2024 End: 10-02-2024 Telemedicine consultation with patient Gina Thom PEREZ Work Phone: Neurology Start: 10-02-2024 End: 10-02-2024 ambulatory Gina Tomas PA-C Work Phone: Neurology Comment on above: Chronic migraine wit hout aura without status migrainosus, not intractable (Primary Dx) Start: 09-28-2024 End: 09-28-2024 Subsequent hospital visit by physician [facility] [place] Work Phone: Radiology Comment on above: Pain in right hip [M 25.551] Start: 09-28-2024 End: 09-28-2024 Patient encounter procedure Linnea Brumfield APRN.NEON INSTALLER Work Phone: [facility] Comment on above: Pain in right hip (P rimary Dx); Traumatic arthritis of right knee; Chronic pain of right lower extremity; Pain in right wrist Start: 09-28-2024 End: 09-28-2024 ambulatory LINNEA PREBISH [facility] Start: 09-27-2024 End: 09-28-2024 Refill Raad Mcrae APRN.NEON INSTALLER Work Phone: Neurology Comment on above: Refill Request Start: 09-27-2024 End: 09-27-2024 ambulatory [facility] Facility:[facility] Start: 09-27-2024 End: 09-27-2024 Patient encounter procedure Katherine Dowd MD Work Phone: Ophthalmology Comment on above: Low-tension glaucoma of both eyes, severe stage (Primary Dx); Combined forms of age-related cataract of left eye; Prediabetes Start: 09-26-2024 End: 09-26-2024 ambulatory [facility] Facility:[facility] Start: 09-26-2024 End: 09-26-2024 Office outpatient visit 40 minutes Zina Wise APRN.NEON INSTALLER Work Phone: Psychiatry Comment on above: Major depressive dis order, recurrent episode, moderate (HCC) (Primary Dx); Primary insomnia; Weight gain due to medication; Panic disorder with agoraphobia; Encounter for long-term (current) use of medications; Psychosocial stressors; Trauma and stressor-related disorder Start: 09-22-2024 End: 09-22-2024 Telephone encounter Zina Wise APRN.CNP Work Phone: Psychiatry Start: 09-20-2024 End: 09-20-2024 Refill Zina Wise APRN.NEON INSTALLER Work Phone: Psychiatry Comment on above: Refill Request Start: 09-14-2024 End: 09-14-2024 Telephone encounter Gina Tomas PA-C Work Phone: [facility] Comment on above: Insurance Authorizat ion (Prior Auth Denied: Appeal Requested for Vyepti) Start: 09-04-2024 End: 09-04-2024 Telephone encounter Zina Wise APRN.CNP Work Phone: Psychiatry Comment on above: Medication Problem Patient Question Start: 09-01-2024 End: 09-01-2024 Refill Linnea Brumfield APRN.NEON INSTALLER Work Phone: [facility] Comment on above: Refill Request Start: 08-25-2024 End: 08-25-2024 Refill Zina Wise APRN.NEON INSTALLER Work Phone: Psychiatry Comment on above: Refill Request Start: 08-25-2024 End: 08-28-2024 Refill Sybil Podlogolivia PELAYO.NEON INSTALLER Work Phone: [facility] [place] Comment on above: Refill Request Start: 08-17-2024 End: 08-17-2024 Telephone encounter Eugene Sanchez MD Work Phone: [facility] [place] Comment on above: Results; Medication Question Start: 08-17-2024 End: 08-17-2024 ambulatory EUGENE SANCHEZ Facility:[facility] Start: 08-17-2024 End: 08-17-2024 Patient encounter procedure Eduardo Vasquez Work Phone: Podiatry Comment on above: Plantar fasciitis, b ilateral (Primary Dx) Start: 08-14-2024 End: 08-14-2024 Telephone encounter Tu Jerry MD Work Phone: [facility] Comment on above: Procedure Follow Up (RFA) Start: 08-11-2024 End: 08-11-2024 Patient encounter procedure Tu Jerry MD Work Phone: [facility] Start: 08-11-2024 End: 08-11-2024 ambulatory Tu Jerry MD Work Phone: [facility] Comment on above: Procedure (RFA) Start: 08-11-2024 End: 08-11-2024 ambulatory EUGENE SANCHEZ Facility:[facility] Start: 08-07-2024 End: 08-07-2024 Telephone encounter Zina Wise APRN.NEON INSTALLER Work Phone: Psychiatry Start: 08-05-2024 End: 08-07-2024 Refill Linnea Brumfield APRN.NEON INSTALLER Work Phone: [facility] Comment on above: Refill Request Start: 08-03-2024 End: 08-07-2024 ambulatory Zina Wise APRN.NEON INSTALLER Work Phone: Psychiatry Comment on above: rx Start: 07-31-2024 End: 08-14-2024 Telephone encounter Zina Wise APRN.NEON INSTALLER Work Phone: Psychiatry Comment on above: Prior Authorization: [place] Start: 07-28-2024 End: 07-28-2024 Telemedicine consultation with patient Linnea Brumfield APRN.NEON INSTALLER Work Phone: [facility] Start: 07-28-2024 End: 07-28-2024 ambulatory Linnea Brumfield LOG INSPECTOR.NEON INSTALLER Work Phone: [facility] Comment on above: Lumbar spondylosis ( Primary Dx) Start: 07-27-2024 End: 07-27-2024 Telephone encounter Zina Wise APRN.NEON INSTALLER Work Phone: Psychiatry Start: 07-26-2024 End: 07-26-2024 Telephone encounter Tu Jerry MD Work Phone: [facility] Comment on above: Procedure Follow Up Start: 07-26-2024 End: 07-26-2024 [facility] Start: 07-26-2024 End: 07-26-2024 Office outpatient visit 25 minutes Dean Tinsley MD Work Phone: Orthopaedics Comment on above: Post-traumatic osteo arthritis of right knee (Primary Dx); Orthopedic device, implant, or graft complication (HCC) Start: 07-24-2024 End: 07-24-2024 Refill Shahrzad Whitehead MD Work Phone: Neurology Comment on above: Refill Request Procedure (Mbb #2); Back Pain (Lower - bilateral - right is worse) Start: 07-21-2024 End: 07-21-2024 [facility] Zina Wise APRN.NEON INSTALLER Work Phone: Psychiatry Comment on above: Major depressive dis order, recurrent episode, moderate (HCC) (Primary Dx); Primary insomnia; Panic disorder with agoraphobia; Anxiety about health; Falls; Psychosocial stressors; Encounter for long-term (current) use of medications Start: 07-21-2024 End: 07-21-2024 ambulatory [facility] Facility:[facility] Start: 07-19-2024 End: 07-19-2024 Patient encounter procedure Sybil Samaniego APRN.CNP Work Phone: [facility] [place] Comment on above: Prediabetes (Primary Dx); Osteoporosis, unspecified osteoporosis type, unspecified pathological fracture presence; Hypothyroidism due to medication; Pure hypercholesterolemia; Vitamin B12 deficiency; Chronic migraine without aura without status migrainosus, not intractable; Anxiety and depression; Stage 3a chronic kidney disease (HCC); Seizure ([facility]) Start: 07-19-2024 End: 07-19-2024 ambulatory [facility] Facility:[facility] Start: 07-18-2024 End: 07-18-2024 Refill Zina Wise APRN.CNP Work Phone: Psychiatry Comment on above: Refill Request Start: 07-18-2024 End: 07-18-2024 ambulatory [facility] Facility:[facility] Start: 07-18-2024 End: 07-18-2024 Subsequent hospital visit by physician Khushbu Cummings F30 (I-Stat) Work Phone: Radiology Comment on above: Orthopedic device, i mplant, or graft complication ([facility] [facility]) [T84.9XXA] Start: 07-18-2024 End: 07-18-2024 ambulatory Infusion Main Chair 10 Work Phone: Neurology Comment on above: Intractable 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 (Primary Dx) Start: 07-06-2024 End: 07-06-2024 Patient encounter procedure Ab Smart EVERETT Work Phone: [facility] Comment on above: Traumatic arthritis of right knee (Primary Dx) Start: 07-06-2024 End: 07-06-2024 Telemedicine consultation with patient Richele Smart LOG INSPECTOR.HARISH Work Phone: [facility] Start: 07-06-2024 End: 07-06-2024 ambulatory RICHELE SMART Facility:[id number] Start: 07-05-2024 End: 07-05-2024 Patient encounter procedure Darío Bonilla PA-C Work Phone: Orthopaedics Comment on above: Orthopedic device, i mplant, or graft complication (HCC) (Primary Dx); Chronic pain of right knee; Post-traumatic osteoarthritis of right knee Start: 07-05-2024 End: 07-05-2024 ambulatory EUGENE SANCHEZ Facility:[facility] Start: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 ev cleared fda spec home use Tu Jerry MD Work Phone: Start: 06-11-2023 Gluc bld gluc mntr d ev cleared fda spec home use Ashley Blackman MD Work Phone: Start: 06-11-2023 US OTHER-INJECTION ( POC) FARZANA USE ONLY Ashley Blackman MD Work Phone: Start: 04-26-2023 Radex spine lumbosac ral 2/3 views Sybil Samaniego LOG INSPECTOR.[facility] Work Phone: Start: 04-19-2023 CT of head without contrast Start: 04-19-2023 X-ray of chest posteroanterior view Start: 04-09-2023 Mri brain brain stem w/o contrast material Eugene Sanchez MD Work Phone: Start: 04-07-2023 Visual field xm uni/ bi w/interp extended exam Katherine Dowd MD Work Phone: Start: 03-10-2023 Radex hand minimum 3 views Dana Tejeda PA-C Work Phone: Start: 02-01-2023 End: 02-01-2023 Mammography Sybil Samaniego LOG INSPECTOR. [facility] Work Phone: Start: 01-21-2023 End: 01-21-2023 Radiologic exam knee complete 4/more views Sybil Samaniego LOG INSPECTOR.[facility] Work Phone: Start: 01-21-2023 Lipid 1996 panel - S arturo or Plasma Mri (I-Stat/1.5t) Work Phone: Start: 11-26-2022 Arthrocentesis aspir &/inj major jt/bursa w/us Tu Swartz MD Work Phone: Start: 11-26-2022 Gluc bld gluc mntr d ev cleared fda spec home use Tu Swartz MD Work Phone: Start: 08-27-2022 Us compl joint r-t w /image documentation Tu Swartz MD Work Phone: Start: 07-17-2022 [employer] COVI D-19 BIVALENT BOOSTER VACCINE, AGE 12+ YR Sybil Podlogar LOG INSPECTOR.NEON INSTALLER Work Phone: Start: 07-01-2022 Gluc bld gluc mntr d ev cleared fda spec home use Tu Swartz MD Work Phone: Start: 06-06-2022 INFLUENZA VACCINE QUADRIVALENT 6 MO - 64 YRS IM Leighton Egan DO Work Phone: Start: 03-11-2022 Gluc bld gluc mntr d ev cleared fda spec home use Tu Swartz MD Work Phone: Start: 02-20-2022 Radex fingr minimum 2 views Sybil Podlogolivia LOG INSPECTOR.NEON INSTALLER Work Phone: Start: 02-11-2022 Adult depression scr eening assessment Katherine Dowd MD Work Phone: Start: 02-10-2022 30 DAY RIGHT EYE OUT COMES PROTOCOL E-ETDRS VISUAL ACUITY Katherine Dowd MD Work Phone: Start: 02-05-2022 Adult depression scr eening assessment Katherine Dowd MD Work Phone: Start: 01-20-2022 Adult depression scr eening assessment Kecia Holcomb LOG INSPECTOR.NEON INSTALLER Work Phone: Start: 01-10-2022 Adult depression scr eening assessment Screen Wstr Start: 01-09-2022 End: 01-09-2022 Screening mammography bi 2-view breast inc cad Ashley Blackman MD Work Phone: Start: 12-31-2021 Adult depression scr eening assessment Zina Wise LOG INSPECTOR.NEON INSTALLER Work Phone: Start: 11-17-2021 PREOP RIGHT EYE OUTC OMES PROTOCOL E-ETDRS VISUAL ACUITY Katherine Dowd MD Work Phone: Start: 11-17-2021 IOL BIOMETRY W/ IOL CALC OU (BOTH EYES) Katherine Dowd MD Work Phone: Start: 11-17-2021 Adult depression scr eening assessment Zina Wise LOG INSPECTOR.NEON INSTALLER Work Phone: Start: 10-04-2021 Adult depression scr eening assessment Tu Swartz MD Work Phone: Start: 01-06-2021 Mammography Tu bueno MD Work Phone: Start: 12-19-2012 Colonoscopy Tu bueno MD Work Phone: Plan of Treatment Date Care Activity Detail Author Start: 12-14-2029 Lipid panel Lipid Screening [facility] Start: 10-02-2029 Lipid panel Lipid Screening [facility] Start: 08-11-2029 Lipid panel Lipid Screening [facility] Start: 06-29-2028 Urine microalbumin profile [facility] Start: 01-22-2028 Lipid panel Lipid Screening [facility] Start: 12-26-2027 Diabetes Screening Diabetes Screening [facility] Start: 12-23-2027 Diabetes Screening Diabetes Screening [facility] Start: 12-15-2027 Diabetes Screening Diabetes Screening [facility] Start: 10-02-2027 Diabetes Screening Diabetes Screening [facility] Start: 08-11-2027 Diabetes Screening Diabetes Screening [facility] Start: 01-23-2027 Screening for malignant neoplasm of colon Cologuard (FIT-DNA) [facility] Start: 01-17-2027 Diabetes Screening Diabetes Screening [facility] Start: 08-13-2026 Diabetes Screening Diabetes Screening [facility] Start: 12-25-2025 Creatinine measurement Serum Creatinine [facility] Start: 12-22-2025 Creatinine measurement Serum Creatinine [facility] Start: 12-14-2025 BP Controlled (<130/80) BP Controlled (<130/80) [facility] Start: 12-14-2025 Complete blood count Hemoglobin/Hematocrit [facility] Start: 12-14-2025 Creatinine measurement Serum Creatinine [facility] Start: 11-26-2025 LIPID SCREEN LIPID SCREEN [facility] Start: 10-30-2025 Annual PCP Team Chronic Disease Visit Annual PCP Team Chronic Disease Visit [facility] Start: 10-12-2025 End: 03-21-2026 VISUAL FIELD 24-2 OD (RIGHT EYE) VISUAL FIELD 24-2 OD (RIGHT EYE) [facility] Imaging Routine Low-tension glaucoma of both eyes, severe stage Expected: 10/12/2025, Expires: 03/21/2026 [facility] Work Phone: Comment on above: Expected: 10/12/2025, Expires: Start: 10-02-2025 Creatinine measurement Serum Creatinine [facility] Start: 08-11-2025 Creatinine measurement Serum Creatinine [facility] Start: 07-19-2025 Annual PCP Team Chronic Disease Visit Annual PCP Team Chronic Disease Visit [facility] Start: 07-19-2025 BP Controlled (<130/80) BP Controlled (<130/80) [facility] Start: 07-19-2025 Covid-19 Vaccine ( season) Covid-19 Vaccine () [facility] Comment on above: Postponed from 04/16/2024 (Declined at t his time) Start: 05-16-2025 End: 05-16-2025 Patient encounter procedure 05/16/2025 9:30 AM EDT Office Visit [facility] Ophthalmology [address] [place] [address] Katherine Dowd MD [address] [place] [address] Return in about 3 months (around 04/19/2025). Ophthalmology Comment on above: Return in about 3 months (around ). Start: 05-09-2025 End: 05-09-2025 Patient encounter procedure Orthopaedics Comment on above: R TKA with HW removal 12/21/24 Start: 04-24-2025 End: 04-24-2025 Patient encounter procedure 04/24/2025 8:30 AM EDT Office Visit Psychiatry [address] [place] [address] Zina Wise, LOG INSPECTOR.NEON INSTALLER [address] [place] [phone] Psychiatry Start: 04-20-2025 Creatinine measurement Serum Creatinine [facility] Start: 04-17-2025 End: 04-17-2025 ambulatory 04/17/2025 8:30 AM EDT [facility] [address] [place] [address] [facility] Comment on above: [facility] Start: 04-16-2025 Influenza vaccination [facility] Start: 03-29-2025 End: 09-05-2025 VISUAL FIELD 24-2 OD (RIGHT EYE) VISUAL FIELD 24-2 OD (RIGHT EYE) [facility] Imaging Routine Low-tension glaucoma of both eyes, severe stage Expected: 03/29/2025, Expires: 09/05/2025 [facility] Work Phone: Comment on above: Expected: 03/29/2025, Expires: Start: 03-29-2025 End: 03-29-2025 Patient encounter procedure 03/29/2025 9:30 AM EDT Office Visit [facility] [address] [address] Linnea Brumfield APRN.NEON INSTALLER [address] [place] [address] 1 MO FOLLOW UP [facility] Comment on above: 1 MO FOLLOW UP Start: 03-02-2025 Complete blood count Hemoglobin/Hematocrit [facility] Start: 03-01-2025 End: 03-01-2025 Patient encounter procedure 03/01/2025 9:30 AM EDT Office Visit [facility] [address] [place] [address] Linnea Brumfield, LOG INSPECTOR.NEON INSTALLER [address] [place] [address] 3 mth follow up [facility] Comment on above: 3 mth follow up Start: 02-22-2025 End: 02-22-2025 Patient encounter procedure 02/22/2025 9:30 AM EDT Office Visit [facility] [address] [place] [address] Linnea Brumfield, LOG INSPECTOR.NEON INSTALLER [address] [place] [address] 3 mth follow up [facility] Comment on above: 3 mth follow up Start: 02-13-2025 End: 02-13-2025 [facility] 02/13/2025 9:00 AM EDT [facility] Psychiatry [address] [place] [phone] Zina Wise, LOG INSPECTOR.NEON INSTALLER [address] [place] [phone] Provider Ordered Follow Up Psychiatry Comment on above: Provider Ordered Follow Up Start: 02-07-2025 End: 02-07-2025 Patient encounter procedure Radiology Comment on above: R TKA with HW removal 12/21/24 Start: 02-06-2025 Screening for malignant neoplasm of breast Mammogram Screening [facility] Start: 02-01-2025 End: 02-10-2026 XR Knee AP and Lateral and Merchants XR KNEE POST OP 3V AP/LAT/MERCHANT RIGHT Radiology Routine Status post right knee replacement Expected: 02/01/2025 (Approximate), Expires: 02/10/2026 [facility] Work Phone: Comment on above: Expected: 02/01/2025 (Approximate), Expi res: 02/10/2026 Start: 01-23-2025 End: 01-23-2025 ambulatory 01/23/2025 8:30 AM EDT [facility] [address] [place] [address] [facility] Comment on above: [facility] Start: 01-18-2025 End: 01-18-2025 Patient encounter procedure 01/18/2025 9:00 AM EDT Office Visit Family Medicine [place] [address] [place], [place] [phone] Eugene Sanchez MD [address] [place], [place] [phone] 6 month follow up [facility] [place] Comment on above: 6 month follow up Start: 01-17-2025 Annual PCP Team Chronic Disease Visit Annual PCP Team Chronic Disease Visit [facility] Start: 01-17-2025 BP Controlled (<130/80) BP Controlled (<130/80) [facility] Start: 01-17-2025 End: 01-17-2025 Patient encounter procedure Family S[facility] Cortes Comment on above: 6 month follow up Return in about 3 mo nths (around 12/25/2024) for VF . Start: 01-11-2025 End: 01-11-2025 Nursing evaluation of patient and report 01/11/2025 8:00 AM EDT Nurse Visit Orthopaedics [address] [address] Joann Wen RN [address] [id number] R TKA DOS 12/21/24 with R Femur HW removal Orthopaedics Comment on above: R TKA DOS 12/21/24 with R Femur HW removal Start: 01-04-2025 End: 01-04-2025 Nursing evaluation of patient and report 01/04/2025 11:00 AM EDT Nurse Visit Orthopaedics [address] [address] Joann Wen, MAGDIEL [address] [address] R TKA DOS 12/21/24 with R Femur HW removal Orthopaedics Comment on above: R TKA DOS 12/21/24 with R Femur HW removal Start: 01-01-2025 End: 01-01-2025 Nursing evaluation of patient and report 01/01/2025 10:00 AM EDT Nurse Visit Family Medicine [place] [address] [place] [address] Nurse, Ny [address] [place], [place] [address] [facility] [place] Comment on above: [facility] Start: 12-29-2024 Advance Directive Discussion Advance Directive Discussion [facility] Start: 12-29-2024 Screening for osteoporosis Bone Density Screening [facility] Start: 12-21-2024 End: 12-21-2024 Admission to same day surgery center 12/21/2024 7:30 AM EDT - 12/21/2024 11:01 AM EDT Surgery [facility] [address] [place] [address] Dean Tinsley MD [address] [place] [address] ROBOTIC ASSISTED TOTAL KNEE ARTHROPLASTY [facility] Comment on above: ROBOTIC ASSISTED TOTAL KNEE ARTHROPLASTY Start: 12-21-2024 End: 12-21-2024 Arthrp kne condyle&platu medial&lat compartments ROBOTIC ASSISTED TOTAL KNEE ARTHROPLASTY Traumatic arthritis of right knee 12/21/2024 7:30 AM EDT [facility] Start: 12-21-2024 End: 12-21-2024 Removal implant deep REMOVAL HARDWARE FEMUR Traumatic arthritis of right knee 12/21/2024 7:30 AM EDT ME OR Start: 12-21-2024 Subsequent hospital visit by physician 12/21/2024 7:30 AM EDT Hospital Encounter [facility] [address] [place] [address] Dean Tinsley MD [address] [place] [address] Traumatic arthritis of right knee [M12.561] [facility] Comment on above: Traumatic arthritis of right knee [M12.5 61] Start: 12-20-2024 End: 12-20-2024 Patient encounter procedure 12/20/2024 9:30 AM EDT Office Visit [facility] Ophthalmology [address] [place] [address] Katherine Dowd MD [address] [facility] [address] [place] [address] Return in about 3 months (around 12/25/2024) for VF . Ophthalmology Comment on above: Return in about 3 months (around 12/26/19 25) for VF . Start: 12-18-2024 End: 12-18-2024 Follow-up encounter 12/18/2024 9:30 AM EDT [facility] [address] [place] [address] Gina Tomas PA-C [address] [place] [address] aimovig follow up/possibly resubmit for [facility] under new medicare insurance Neurology Comment on above: aimovig follow up/possibly resubmit for [facility] under new medicare insurance Start: 12-14-2024 Medicare Annual Wellness Visit Medicare Annual Wellness Visit [facility] Start: 12-14-2024 End: 12-14-2024 Anesthesia consultation 12/14/2024 9:20 AM EDT PAT Pre Anesthesia [address] [place] [address] 1, P[facility] [place] [address] [place] [address] 12/21 dos ROBOTIC ASSISTED TOTAL KNEE ARTHROPLASTY [74675] - Knee - Right Pre Anesthesia Comment on above: 12/21 dos ROBOTIC ASSISTED TOTAL KNEE ARTH ROPLASTY [43128] - Knee - Right Start: 12-07-2024 End: 12-07-2024 Patient encounter procedure 12/07/2024 10:00 AM EDT Appointment Radiology [address] [place] [address] Radiology Comment on above: [facility] [address] Start: 11-30-2024 End: 11-30-2024 Follow-up encounter 11/30/2024 11:45 AM EDT [facility] [address] [place] [address] Linnea Brumfield APRN.NEON INSTALLER [address] [place] [address] 2 month follow up [facility] Comment on above: 2 month follow up Start: 11-15-2024 End: 02-14-2025 25-hydroxyvitamin D3 [Mass/volume] in Serum or Plasma VITAMIN D 25 HYDROXY Lab Routine Vitamin D deficiency Expected: 11/15/2024, Expires: 02/14/2025 [facility] Work Phone: Comment on above: Expected: 11/15/2024, Expires: Start: 11-15-2024 End: 02-14-2025 Ferritin [Mass/volume] in Serum or Plasma FERRITIN Lab Routine Vitamin D deficiency Normocytic anemia Pure hypercholesterolemia Expected: 11/15/2024, Expires: 02/14/2025 [facility] Comment on above: Expected: 11/15/2024, Expires: Start: 11-15-2024 End: 02-14-2025 Folate [Mass/volume] in Serum or Plasma FOLATE, SERUM Lab Routine Vitamin D deficiency Normocytic anemia Pure hypercholesterolemia Expected: 11/15/2024, Expires: 02/14/2025 [facility] Comment on above: Expected: 11/15/2024, Expires: Start: 11-15-2024 End: 02-14-2025 Iron and Iron binding capacity panel - Serum or Plasma IRON AND TIBC Lab Routine Vitamin D deficiency Normocytic anemia Pure hypercholesterolemia Expected: 11/15/2024, Expires: 02/14/2025 [facility] Comment on above: Expected: 11/15/2024, Expires: Start: 11-15-2024 End: 02-14-2025 Lipid 1996 panel - Serum or Plasma LIPID PANEL BASIC Lab Routine Vitamin D deficiency Normocytic anemia Pure hypercholesterolemia Expected: 11/15/2024, Expires: 02/14/2025 [facility] Comment on above: Expected: 11/15/2024, Expires: Start: 11-01-2024 Creatinine measurement Serum Creatinine [facility] Start: 10-25-2024 DIABETES SCREEN DIABETES SCREEN [facility] Start: 10-13-2024 End: 10-13-2024 ambulatory 10/13/2024 2:00 PM EST [facility] [address] [place] [address] Lucía Denney, PhD [address] [place] [address] [facility] Comment on above: [facility] Start: 10-11-2024 End: 10-11-2024 Follow-up encounter 10/11/2024 7:45 AM EST [facility] [address] [facility] [address] [place], [place] [id number] Linnea Brumfield APRN.NEON INSTALLER [address] [place] [address] RFA follow up [facility] Comment on above: RFA follow up Start: 10-10-2024 End: 10-10-2024 ambulatory 10/10/2024 8:30 AM EST [facility] Neurology [address] [place] [address] [facility] Comment on above: [facility] Start: 10-09-2024 End: 01-08-2025 CBC W Auto Differential panel - Blood COMPLETE BLOOD COUNT AND DIFFERENTIAL Lab Routine Post-traumatic osteoarthritis of right knee Expected: 10/09/2024, Expires: 01/08/2025 [facility] Comment on above: Expected: 10/09/2024, Expires: Start: 10-09-2024 End: 01-08-2025 Comprehensive metabolic 2000 panel - Serum or Plasma COMPREHENSIVE METABOLIC PANEL Lab Routine Post-traumatic osteoarthritis of right knee Expected: 10/09/2024, Expires: 01/08/2025 [facility] Comment on above: Expected: 10/09/2024, Expires: Start: 10-09-2024 End: 01-08-2025 TYPE AND SCREEN,30 DAY TYPE AND SCREEN,30 DAY Blood Bank Routine Post-traumatic osteoarthritis of right knee Expected: 10/09/2024, Expires: 01/08/2025 [facility] Comment on above: Expected: 10/09/2024, Expires: Start: 10-09-2024 End: 10-09-2024 Patient encounter procedure 10/09/2024 11:00 AM EST Office Visit Orthopaedics [address] [address] Dean Tinsley MD [address] [place] [address] pre op- right knee Orthopaedics Comment on above: pre op- right knee Start: 10-06-2024 End: 10-06-2024 ambulatory 10/06/2024 2:00 PM EST [facility] [address] [facility] [place] [address] Lucía Denney, PhD [address] [place] [address] [facility] Comment on above: [facility] Start: 10-04-2024 End: 10-04-2024 Patient encounter procedure 10/04/2024 9:00 AM EST Office Visit Orthopaedics [address] [address] Dean Tinsley MD [address] [place] [address] pre op- right knee Orthopaedics Comment on above: pre op- right knee Start: 10-03-2024 End: 10-03-2024 Follow-up encounter 10/03/2024 1:30 PM EST [facility] [address] [place] [address] Arlin Martines APRN.NEON INSTALLER [address] [facility] [place] [address] [place] [address] Virtual 5 months follow up Kidney Medicine Comment on above: Virtual 5 months follow up Start: 10-02-2024 End: 10-02-2024 [facility] 10/02/2024 1:00 PM EST [facility] [address] [place] [phone] Gina Tomas PA-C [address] [place] [address] follow headaces and prescription refill Neurology Comment on above: follow headaces and prescription refill Start: 09-29-2024 End: 09-29-2024 ambulatory 09/29/2024 9:00 AM EST [facility] [address] [place] [address] Lucía Denney, PhD [address] [place] [address] [facility] Comment on above: [facility] Start: 09-28-2024 End: 09-28-2024 Patient encounter procedure 09/28/2024 8:30 AM EST Office Visit [facility] [address] [place] [address] Linnea Brumfield APRN.NEON INSTALLER [address] [place], [place] [phone] med refill// RFA follow up [facility] Comment on above: med refill// RFA follow up Start: 09-27-2024 End: 09-27-2024 Patient encounter procedure 09/27/2024 9:30 AM EST Office Visit [facility] Ophthalmology [address] [address] Katherine Dowd MD [address] [address] Return in about 6 months (around 09/14/2024) for VF . Ophthalmology Comment on above: Return in about 6 months (around 09/14/19) for VF . Start: 09-26-2024 End: 12-26-2024 Comprehensive metabolic 2000 panel - Serum or Plasma COMPREHENSIVE METABOLIC PANEL Lab Routine Encounter for long-term (current) use of medications Expected: 09/26/2024, Expires: 12/26/2024 [facility] Work Phone: Comment on above: Expected: 09/26/2024, Expires: Start: 09-26-2024 End: 12-26-2024 Hemoglobin A1c in Blood HEMOGLOBIN A1C Lab Routine Weight gain due to medication Expected: 09/26/2024, Expires: 12/26/2024 [facility] Comment on above: Expected: 09/26/2024, Expires: Start: 09-26-2024 End: 12-26-2024 Lipid 1996 panel - Serum or Plasma LIPID PANEL BASIC Lab Routine Weight gain due to medication Expected: 09/26/2024, Expires: 12/26/2024 [facility] Comment on above: Expected: 09/26/2024, Expires: Start: 09-25-2024 End: 09-25-2024 Follow-up encounter Psychiatry Comment on above: 2 month follow up Follow up Start: 09-22-2024 End: 09-22-2024 ambulatory 09/22/2024 9:00 AM [facility] [address] [facility] [place] [place] [address] Lucía Denney, PhD [address] [place] [address] [facility] Comment on above: [facility] Start: 09-19-2024 End: 09-19-2024 Follow-up encounter 09/19/2024 1:00 PM [facility] [address] [place] [address] Arlin Martines APRN.NEON INSTALLER [address] [place] [address] Virtual 5 months follow up Kidney Medicine Comment on above: Virtual 5 months follow up Start: 09-15-2024 End: 09-15-2024 ambulatory 09/15/2024 10:00 AM EST [facility] [address] [place] [address] Lucía Denney, PhD [address] [place] [address] [facility] Comment on above: [facility] Start: 09-08-2024 End: 09-08-2024 ambulatory 09/08/2024 10:00 AM EST [facility] [address] [place] [address] Lucía Denney, PhD [address] [place] [address] [facility] Comment on above: [facility] Start: 09-01-2024 End: 09-01-2024 ambulatory 09/01/2024 10:00 AM EST [facility] [address] [place] [address] Lucía Denney, PhD [address] [place] [address] [facility] Comment on above: [facility] Start: 08-27-2024 BP Controlled (<130/80) BP Controlled (<130/80) [facility] in Start: 08-25-2024 End: 08-25-2024 Follow-up encounter [facility] New Site Comment on above: Knee injection follow up Follow up after NB. Start: 08-17-2024 End: 01-24-2025 VISUAL FIELD 24-2 OD (RIGHT EYE) VISUAL FIELD 24-2 OD (RIGHT EYE) OP[facility] Imaging Routine Low-tension glaucoma of both eyes, severe stage Expected: 08/17/2024, Expires: 01/24/2025 [facility] Work Phone: Comment on above: Expected: 08/17/2024, Expires: Start: 08-17-2024 End: 08-17-2024 Patient encounter procedure 08/17/2024 9:45 AM EST Office Visit Podiatry [address] [facility] [place] [address] Eduardo Vasquez [address] [facility] [address] [place] [address] LT plantar facitis Podiatry Comment on above: LT plantar facitis Start: 08-11-2024 End: 08-11-2024 ambulatory [facility] Comment on above: Right knee joint injection w ultrasound (R) Genicular NB AUTH GOOD NPCR LMS - (R) Genicular NB AUTH GOOD CAD (08/01 - 09/30/24) BILATERAL SIDES at L4-5 and L5-S1 RFA ---OK PER GM Start: 08-04-2024 End: 08-04-2024 ambulatory 08/04/2024 2:00 PM EST [facility] [address] [place] [address] Lucía Denney, PhD [address] [place] [address] [facility] Comment on above: [facility] Start: 08-03-2024 Glaucoma screening Dilated Retinal Exam [facility] Start: 07-28-2024 End: 07-28-2024 ambulatory 07/28/2024 2:00 PM EST [facility] [address] [place] [address] Lucía Denney, PhD [address] [place] [address] [facility] Comment on above: [facility] Start: 07-28-2024 End: 07-28-2024 Follow-up encounter 07/28/2024 7:45 AM EST [facility] [address] [facility] [address] [place] [address] Linnea Brumfield APRN.NEON INSTALLER [address] [place] [address] 2nd MBB follow up [facility] New Site Comment on above: 2nd MBB follow up Start: 07-26-2024 End: 07-26-2024 Patient encounter procedure Orthopaedics Comment on above: Right Knee Right Knee surgical consult from darío Start: 07-24-2024 End: 07-24-2024 ambulatory [facility] New Site Comment on above: Bilateral MBBs w fluoro at L4-5 and L5-S 1 (2 of 2) AUTH GOOD valid (-08/12/24) LMS - Bilateral MBBs w fluoro at L4-5 and L5-S1 (2 of 2) Start: 07-21-2024 End: 07-21-2024 Follow-up encounter Psychiatry Comment on above: 2 month follow up Start: 07-20-2024 BP Controlled (<130/80) BP Controlled (<130/80) [facility] in Start: 07-19-2024 End: 10-18-2024 25-hydroxyvitamin D3 [Mass/volume] in Serum or Plasma VITAMIN D 25 HYDROXY Lab Routine Osteoporosis, unspecified osteoporosis type, unspecified pathological fracture presence Expected: 07/19/2024, Expires: 10/18/2024 [facility] Comment on above: Expected: 07/19/2024, Expires: Start: 07-19-2024 Annual PCP Team Chronic Disease Visit Annual PCP Team Chronic Disease Visit [facility] Start: 07-19-2024 End: 10-18-2024 Cobalamin (Vitamin B12) [Mass/volume] in Serum or Plasma VITAMIN B12 Lab Routine Vitamin B12 deficiency Expected: 07/19/2024, Expires: 10/18/2024 [facility] Comment on above: Expected: 07/19/2024, Expires: Start: 07-19-2024 End: 10-18-2024 Comprehensive metabolic 2000 panel - Serum or Plasma COMPREHENSIVE METABOLIC PANEL Lab Routine Prediabetes Osteoporosis, unspecified osteoporosis type, unspecified pathological fracture presence Expected: 07/19/2024, Expires: 10/18/2024 [facility] Comment on above: Expected: 07/19/2024, Expires: Start: 07-19-2024 Covid-19 Vaccine () Covid-19 Vaccine (2022- season) [facility] Comment on above: Postponed from 04/16/2023 (Declined at t his time) Start: 07-19-2024 End: 10-18-2024 Hemoglobin A1c in Blood HEMOGLOBIN A1C Lab Routine Prediabetes Expected: 07/19/2024, Expires: 10/18/2024 [facility] Work Phone: Comment on above: Expected: 07/19/2024, Expires: Start: 07-19-2024 End: 10-18-2024 Lipid 1996 panel - Serum or Plasma LIPID PANEL BASIC Lab Routine Pure hypercholesterolemia Expected: 07/19/2024, Expires: 10/18/2024 [facility] Comment on above: Expected: 07/19/2024, Expires: Start: 07-19-2024 Pneumococcal vaccination Pneumococcal Vaccine (3 - PPSV23 or PCV20) [facility] Comment on above: Postponed from 06/17/2022 (Declined at t his time) Start: 07-19-2024 RSV Vaccine (1 - 1-dose 60+ series) RSV Vaccine (1 - 1-dose 60+ series) [facility] Comment on above: Postponed from 2019 (Declined at t his time) Start: 07-19-2024 End: 10-18-2024 Thyrotropin [Units/volume] in Serum or Plasma THYROID STIMULATING HORMONE Lab Routine Hypothyroidism due to medication Expected: 07/19/2024, Expires: 10/18/2024 [facility] Comment on above: Expected: 07/19/2024, Expires: Start: 07-19-2024 End: 07-19-2024 Patient encounter procedure [facility] [place] Comment on above: 6 month follow up Orthopedic device, i mplant, or graft complication (HCC) [T84.9XXA] Start: 07-18-2024 End: 07-18-2024 Patient encounter procedure Podiatry Comment on above: LT plantar facitis Start: 07-17-2024 End: 07-17-2024 ambulatory 07/17/2024 10:00 AM [facility] [address] [place] [id number] [facility] Comment on above: [facility] Start: 07-06-2024 End: 07-06-2024 Follow-up encounter 07/06/2024 8:30 AM EST [facility] [address] [place] [address] Ab Grant APRN.NEON INSTALLER [address] [place] [address] 1st MBB follow up [facility] Comment on above: 1st MBB follow up Start: 07-05-2024 End: 07-05-2024 Patient encounter procedure Orthopaedics Comment on above: RT knee pain after fall on 06/07/24 R knee Start: 07-04-2024 End: 07-04-2024 Follow-up encounter 07/04/2024 1:00 PM EST [facility] [address] [facility] [address] [place] [address] Arlin Martines APRN.NEON INSTALLER [address] [facility] [address] [place] [address] Virtual 5 months follow up Kidney Medicine Comment on above: Virtual 5 months follow up Start: 07-03-2024 End: 07-03-2024 ambulatory 07/03/2024 8:50 AM EST Procedure Spine and Pain New Site [address] [place] [address] Tu Jerry MD [address] [place] [address] Bilateral MBBs w fluoro at L4-5 and L5-S1 (1 of 2) [facility] Comment on above: Bilateral MBBs w fluoro at L4-5 and L5-S 1 (1 of 2) Start: 06-15-2024 BP Controlled (<130/80) BP Controlled (<130/80) [facility] in Start: 06-12-2024 End: 06-12-2024 Nursing evaluation of patient and report 06/12/2024 9:15 AM EDT Nurse Visit Family Medicine [place] [address] [facility] [place] [address] Nurse, Renée [address] [place] [address] [place] [phone] [facility] Comment on above: Prolia Start: 06-01-2024 End: 06-01-2024 Patient encounter procedure 06/01/2024 9:30 AM EDT Office Visit [facility] [address] [place] [address] Linnea Brumfield APRN.NEON INSTALLER [address] [place] [address] 3 month follow up for refill [facility] Comment on above: 3 month follow up for refill Start: 05-23-2024 End: 05-23-2024 Follow-up encounter 05/23/2024 11:00 AM EDT [facility] [address] [place] [address] Lucía Denney, PhD [address] [place] [address] follow up Neurology Comment on above: follow up Start: 05-18-2024 BP Controlled (<130/80) BP Controlled (<130/80) [facility] Start: 05-18-2024 End: 05-18-2024 Follow-up encounter 05/18/2024 9:00 AM EDT [facility] [address] [facility] [place] [phone] Zina Wise APRN.NEON INSTALLER [address] [place] [phone] 3 MONTH FOLLOW UP Psychiatry Comment on above: 3 MONTH FOLLOW UP Start: 04-28-2024 BP Controlled (<130/80) BP Controlled (<130/80) [facility] in Start: 04-26-2024 ANNUAL PCP TEAM CHRONIC DISEASE VISIT ANNUAL PCP TEAM CHRONIC DISEASE VISIT [facility] Start: 04-24-2024 End: 04-24-2024 ambulatory 04/24/2024 9:30 AM EDT [facility] [address] [place] [address] [facility] Comment on above: [facility] Start: 04-21-2024 End: 04-21-2024 Patient encounter procedure 04/21/2024 9:30 AM EDT Office Visit [facility] [address] [address] Katherine Dowd MD [address] [place] [address] Schedule YAG laser OD in an open laser slot. Please also schedule a follow-up roughly 6 weeks afterwards. Ophthalmology Comment on above: Schedule YAG laser OD in an open laser s lot. Please also schedule a follow-up roughly 6 weeks afterwards. Start: 04-17-2024 End: 07-17-2024 Renal function 2000 panel - Serum or Plasma RENAL FUNCTION PANEL Lab Routine Stage 3a chronic kidney disease (HCC) Expected: 04/17/2024, Expires: 07/17/2024 [facility] Work Phone: Comment on above: Expected: 04/17/2024, Expires: Start: 04-16-2024 Covid-19 Vaccine ( season) Covid-19 Vaccine ( season) [facility] Start: 04-16-2024 Covid-19 Vaccine ( season) Covid-19 Vaccine ( season) [facility] Start: 04-16-2024 Influenza vaccination Influenza Vaccine (#1) [facility] Start: 04-14-2024 End: 04-14-2024 Follow-up encounter 04/14/2024 7:45 AM EDT [facility] New [facility] [address] [facility] [address] [place], [place] [phone] Linnea Brumfield APRN.NEON INSTALLER [address] [place], [place] [id number] injection follow up [facility] New Site Comment on above: injection follow up Start: 04-07-2024 End: 04-07-2024 Follow-up encounter 04/07/2024 2:20 PM EDT [facility] [address] [address] Rubi Chávez MD [address] [place] [address] FOLLOW UP KIDNEY INJURY Kidney [facility] Comment on above: FOLLOW UP KIDNEY INJURY Start: 04-06-2024 BP CONTROLLED (<130/80) BP CONTROLLED (<130/80) [facility] Start: 03-20-2024 End: 03-20-2024 ambulatory [facility] New Site Comment on above: TFESI w fluoro right-sided L4-5 and L5-S 1; prediabetic PENDING SR TFESI w f luoro right-sided L4-5 and L5-S1; prediabetic Start: 03-16-2024 ANNUAL PCP TEAM CHRONIC DISEASE VISIT ANNUAL PCP TEAM CHRONIC DISEASE VISIT [facility] Start: 03-16-2024 BP CONTROLLED (<130/80) BP CONTROLLED (<130/80) [facility] Start: 03-14-2024 End: 03-14-2024 Patient encounter procedure 03/14/2024 7:30 AM EDT Office Visit [facility] [address] [address] Katherine Dowd MD [address] [place] [address] Schedule YAG laser OD in an open laser slot. Please also schedule a follow-up roughly 6 weeks afterwards. Ophthalmology Comment on above: Schedule YAG laser OD in an open laser s lot. Please also schedule a follow-up roughly 6 weeks afterwards. Start: 03-13-2024 End: 03-13-2024 Patient encounter procedure 03/13/2024 11:30 AM EDT Office Visit Podiatry [address] [place] [address] Eduardo Vasquez [address] [place] [address] LEFT FOOT FLARE UP Podiatry Comment on above: LEFT FOOT FLARE UP Start: 03-07-2024 End: 03-07-2024 ambulatory 03/07/2024 12:20 PM EDT [facility] [address] [address] Lexi Forrest MD [address] [place] [address] [facility] Comment on above: [facility] Start: 03-02-2024 End: 03-02-2024 Patient encounter procedure 03/02/2024 10:15 AM EDT Office Visit [facility] [address] [place] [address] Linnea Brumfield APRN.NEON INSTALLER [address] [place] [address] Injection follow up [facility] Comment on above: Injection follow up Start: 03-01-2024 End: 05-31-2024 CBC panel - Blood by Automated count COMPLETE BLOOD COUNT Lab Routine Normocytic anemia Expected: 03/01/2024, Expires: 05/31/2024 [facility] Comment on above: Expected: 03/01/2024, Expires: Start: 03-01-2024 End: 05-31-2024 Ferritin [Mass/volume] in Serum or Plasma FERRITIN Lab Routine Normocytic anemia Expected: 03/01/2024, Expires: 05/31/2024 [facility] Comment on above: Expected: 03/01/2024, Expires: Start: 03-01-2024 End: 05-31-2024 Folate [Mass/volume] in Serum or Plasma FOLATE, SERUM Lab Routine Normocytic anemia Expected: 03/01/2024, Expires: 05/31/2024 [facility] Comment on above: Expected: 03/01/2024, Expires: Start: 03-01-2024 End: 05-31-2024 Iron and Iron binding capacity panel - Serum or Plasma IRON AND TIBC Lab Routine Normocytic anemia Expected: 03/01/2024, Expires: 05/31/2024 [facility] Work Phone: Comment on above: Expected: 03/01/2024, Expires: Start: 02-29-2024 End: 02-29-2024 Patient encounter procedure 02/29/2024 9:00 AM EDT Office Visit [facility] Op[facility]mology [address] [address] Katherine Dowd MD [address] [place] [phone] Return in about 4 months (around 03/03/2024). Ophthalmology Comment on above: Return in about 4 months (around 03/03/20). Start: 02-14-2024 End: 02-14-2024 Follow-up encounter 02/14/2024 8:30 AM EDT [facility] [address] [place] [phone] Zina Wise, LOG INSPECTOR.NEON INSTALLER [address] [place] [phone] 2 MONTH FOLLOW UP Psychiatry Comment on above: 2 MONTH FOLLOW UP Start: 02-07-2024 End: 02-07-2024 Patient encounter procedure 02/07/2024 8:10 AM EDT Appointment Mammogram [address] [place], [place] [id number] Nonepileptic episode (HCC) [R56.9] Mammogram Comment on above: Nonepileptic episode (HCC) [R56.9] Start: 02-02-2024 Mammography [facility] Start: 02-02-2024 Screening for malignant neoplasm of breast Mammogram Screening [facility] Start: 01-25-2024 Screening for malignant neoplasm of colon Colorectal Cancer Screening [facility] Start: 01-22-2024 Hepatitis B screening URINE ALBUMIN:CREATININE RATIO [facility] Start: 01-22-2024 Hepatitis B surface antibody level LDL CHOLESTEROL [facility] Start: 01-21-2024 FECAL OCCULT BLOOD FECAL OCCULT BLOOD [facility] Start: 01-21-2024 Screening for malignant neoplasm of colon Fecal Occult Blood [facility] Start: 01-18-2024 Hemoglobin A1c measurement HbA1C [facility] Start: 01-18-2024 Hemoglobin A1c/Hemoglobin.total in Blood HbA1C [facility] Start: 01-18-2024 End: 01-18-2024 Patient encounter procedure 01/18/2024 9:00 AM EDT Office Visit Family Medicine [place] [address] [place] [address] PodlogarSybil APRN.NEON INSTALLER [address] [place] [address] 6 month follow up/colonoscopy due [facility] [place] Comment on above: 6 month follow up/colonoscopy due LS Start: 01-17-2024 End: 01-17-2024 ambulatory 01/17/2024 9:30 AM EDT [facility] [address] [place] [address] [facility] Comment on above: [facility] Start: 01-16-2024 ANNUAL PCP TEAM CHRONIC DISEASE VISIT ANNUAL PCP TEAM CHRONIC DISEASE VISIT [facility] Start: 01-16-2024 BP CONTROLLED (<130/80) BP CONTROLLED (<130/80) [facility] Start: 01-14-2024 End: 01-14-2024 Admission to same day surgery center LD SURGERY Comment on above: LUMBAR EPIDURAL BLOCK W/INJECTION NON NE UROLYTIC W/IMAGE GUIDANCE Start: 01-14-2024 End: 01-14-2024 Njx dx/ther sbst intrlmnr lmbr/sac w/img gdn LD OR Start: 01-14-2024 Subsequent hospital visit by physician LD SURGERY Comment on above: Lumbar radiculopathy [M54.16] Start: 12-24-2023 End: 12-24-2023 Follow-up encounter 12/24/2023 9:45 AM EDT [facility] [address] [place] [address] Linnea Brumfield, LOG INSPECTOR.NEON INSTALLER [address] [facility] [place] [place] [address] 2 month follow up after PT and MRI [facility] Comment on above: 2 month follow up after PT and MRI Start: 12-24-2023 End: 12-24-2023 Patient encounter procedure 12/24/2023 9:45 AM EDT Office Visit [facility] [address] [place] [address] Linnea Brumfield, LOG INSPECTOR.NEON INSTALLER [address] [place] [address] 2 month follow up after PT and MRI [facility] Comment on above: 2 month follow up after PT and MRI Start: 12-13-2023 End: 12-13-2023 Follow-up encounter 12/13/2023 8:30 AM EDT [facility] [address] [place] [phone] iZna Wise, LOG INSPECTOR.NEON INSTALLER [address] [place] [phone] 2 MONTH FOLLOW UP Psychiatry Comment on above: 2 MONTH FOLLOW UP Start: 12-10-2023 End: 12-10-2023 Nursing evaluation of patient and report 12/10/2023 2:00 PM EDT Nurse Visit Family Medicine [place] [address] [facility] [place] [address] Nurse, Ny [address] [place] [address] prolia injection, see phone encounter for approval. Family [facility] Comment on above: prolia injection, see phone encounter fo r approval. Start: 12-07-2023 Subsequent hospital visit by physician 12/07/2023 8:00 AM EDT Hospital Encounter Radiology [address] [place] [address] Spinal stenosis of lumbar region with neurogenic claudication [M48.062] Radiology Comment on above: Spinal stenosis of lumbar region with ne urogenic claudication [M48.062] Start: 10-30-2023 End: 01-29-2024 Renal function 2000 panel - Serum or Plasma RENAL FUNCTION PANEL Lab Routine MIGDALIA (acute kidney injury) (HCC) Expected: 10/30/2023, Expires: 01/29/2024 [facility] Work Phone: Comment on above: Expected: 10/30/2023, Expires: 4 Start: 10-22-2023 BP CONTROLLED (<130/80) BP CONTROLLED (<130/80) [facility] Start: 10-15-2023 BP CONTROLLED (<130/80) BP CONTROLLED (<130/80) [facility] Start: 08-25-2023 ANNUAL PCP TEAM CHRONIC DISEASE VISIT ANNUAL PCP TEAM CHRONIC DISEASE VISIT [facility] Start: 08-20-2023 End: 11-19-2023 Comprehensive metabolic 2000 panel - Serum or Plasma COMP METABOLIC PANEL Lab Routine MIGDALIA (acute kidney injury) (HCC) Expected: 08/20/2023, Expires: 11/19/2023 [facility] Work Phone: Comment on above: Expected: 08/20/2023, Expires: 4 Start: 07-23-2023 Hemoglobin A1c/Hemoglobin.total in Blood HBA1C [facility] Start: 07-17-2023 3 comp foot exam completed DIABETIC FOOT EXAM [facility] Start: 07-17-2023 ANNUAL PCP TEAM CHRONIC DISEASE VISIT ANNUAL PCP TEAM CHRONIC DISEASE VISIT [facility] Start: 07-17-2023 BP CONTROLLED (<130/80) BP CONTROLLED (<130/80) [facility] Start: 07-17-2023 Diabetic foot examination Diabetic Foot Exam [facility] Start: 04-16-2023 Covid-19 Vaccine ( season) Covid-19 Vaccine ( season) [facility] Start: 04-16-2023 Influenza vaccination [facility] Start: 02-20-2023 ANNUAL PCP TEAM CHRONIC DISEASE VISIT ANNUAL PCP TEAM CHRONIC DISEASE VISIT [facility] Start: 02-20-2023 BP CONTROLLED (<130/80) BP CONTROLLED (<130/80) [facility] Start: 02-11-2023 Adult depression screening assessment DEPRESSION SCREENING [facility] Start: 02-05-2023 Adult depression screening assessment DEPRESSION SCREENING [facility] Start: 01-21-2023 COLORECTAL CANCER SCREENING COLORECTAL CANCER SCREENING [facility] Start: 01-21-2023 Screening for malignant neoplasm of colon Colorectal Cancer Screening [facility] Start: 01-20-2023 Adult depression screening assessment DEPRESSION SCREENING [facility] Start: 01-18-2023 Hemoglobin A1c/Hemoglobin.total in Blood HBA1C [facility] Start: 01-15-2023 End: 03-17-2023 ALBUMIN/CREAT RATIO RND UR ALBUMIN/CREAT RATIO RND UR Lab Routine Prediabetes Expected: 01/15/2023, Expires: 03/17/2023 [facility] Work Phone: Comment on above: Expected: 01/15/2023, Expires: 3 Start: 01-15-2023 End: 03-17-2023 CBC W Auto Differential panel - Blood CBC + DIFF Lab Routine Anemia, unspecified type Expected: 01/15/2023, Expires: 03/17/2023 [facility] Work Phone: Comment on above: Expected: 01/15/2023, Expires: 3 Start: 01-15-2023 End: 03-17-2023 Cobalamin (Vitamin B12) [Mass/volume] in Serum or Plasma VITAMIN B12 BLOOD Lab Routine Anemia, unspecified type Expected: 01/15/2023, Expires: 03/17/2023 [facility] Work Phone: Comment on above: Expected: 01/15/2023, Expires: 3 Start: 01-15-2023 End: 03-17-2023 Comprehensive metabolic 2000 panel - Serum or Plasma COMP METABOLIC PANEL Lab Routine Essential hypertension Expected: 01/15/2023, Expires: 03/17/2023 [facility] Work Phone: Comment on above: Expected: 01/15/2023, Expires: 3 Start: 01-15-2023 End: 03-17-2023 Ferritin [Mass/volume] in Serum or Plasma FERRITIN BLD Lab Routine Anemia, unspecified type Expected: 01/15/2023, Expires: 03/17/2023 [facility] Work Phone: Comment on above: Expected: 01/15/2023, Expires: Start: 01-15-2023 End: 03-17-2023 Folate [Mass/volume] in Serum or Plasma FOLATE SERUM Lab Routine Anemia, unspecified type Expected: 01/15/2023, Expires: 03/17/2023 [facility] Work Phone: Comment on above: Expected: 01/15/2023, Expires: Start: 01-15-2023 End: 03-17-2023 Hemoglobin A1c in Blood HGB A1C Lab Routine Prediabetes Expected: 01/15/2023, Expires: 03/17/2023 [facility] Work Phone: Comment on above: Expected: 01/15/2023, Expires: 3 Start: 01-15-2023 End: 03-17-2023 Iron and Iron binding capacity panel - Serum or Plasma IRON + TIBC Lab Routine Anemia, unspecified type Expected: 01/15/2023, Expires: 03/17/2023 [facility] Work Phone: Comment on above: Expected: 01/15/2023, Expires: 3 Start: 01-15-2023 End: 03-17-2023 Lipid 1996 panel - Serum or Plasma LIPID PANEL BASIC Lab Routine Pure hypercholesterolemia Expected: 01/15/2023, Expires: 03/17/2023 [facility] Work Phone: Comment on above: Expected: 01/15/2023, Expires: 3 Start: 01-15-2023 End: 03-17-2023 Thyrotropin [Units/volume] in Serum or Plasma TSH BLD Lab Routine Hypothyroidism due to medication Expected: 01/15/2023, Expires: 03/17/2023 [facility] Work Phone: Comment on above: Expected: 01/15/2023, Expires: Start: 01-14-2023 ANNUAL PCP TEAM CHRONIC DISEASE VISIT ANNUAL PCP TEAM CHRONIC DISEASE VISIT [facility] Start: 01-14-2023 BP CONTROLLED (<130/80) BP CONTROLLED (<130/80) [facility] Start: 01-14-2023 Hepatitis B surface antibody level LDL CHOLESTEROL [facility] Start: 01-10-2023 Adult depression screening assessment DEPRESSION SCREENING [facility] Start: 01-09-2023 Mammography MAMMOGRAM [facility] Start: 12-31-2022 Adult depression screening assessment DEPRESSION SCREENING [facility] Start: 12-19-2022 Colonoscopy COLONOSCOPY [facility] Start: 12-19-2022 COLORECTAL CANCER SCREENING COLORECTAL CANCER SCREENING [facility] Start: 12-19-2022 Screening for malignant neoplasm of colon Colonoscopy [facility] Start: 12-04-2022 Hepatitis B screening URINE ALBUMIN:CREATININE RATIO [facility] Start: 11-17-2022 Adult depression screening assessment DEPRESSION SCREENING [facility] Start: 11-17-2022 BP CONTROLLED (<130/80) BP CONTROLLED (<130/80) [facility] Start: 11-14-2022 End: 01-14-2023 Gabapentin [Mass/volume] in Serum, Plasma or Blood GABAPENTIN/NEURONTIN Lab Routine Convulsions, unspecified convulsion type (HCC) Expected: 11/14/2022 (Approximate), Expires: 01/14/2023 [facility] Work Phone: Comment on above: Expected: 11/14/2022 (Approximate), Expi res: 01/14/2023 Start: 11-04-2022 BP CONTROLLED (<130/80) BP CONTROLLED (<130/80) [facility] Start: 10-15-2022 Hepatitis C antibody, confirmatory test DILATED RETINAL EXAM [facility] Start: 10-04-2022 Adult depression screening assessment DEPRESSION SCREENING [facility] Start: 09-17-2022 End: 11-17-2022 CBC W Auto Differential panel - Blood CBC + DIFF Lab Routine Seizure-like activity (HCC) Expected: 09/17/2022, Expires: 11/17/2022 [facility] Work Phone: Comment on above: Expected: 09/17/2022, Expires: 3 Start: 09-17-2022 End: 11-17-2022 Comprehensive metabolic 2000 panel - Serum or Plasma COMP METABOLIC PANEL Lab Routine Seizure-like activity (HCC) Expected: 09/17/2022, Expires: 11/17/2022 [facility] Work Phone: Comment on above: Expected: 09/17/2022, Expires: 3 Start: 09-17-2022 End: 11-17-2022 Gabapentin [Mass/volume] in Serum, Plasma or Blood GABAPENTIN/NEURONTIN Lab Routine Seizure-like activity (HCC) Expected: 09/17/2022, Expires: 11/17/2022 [facility] Work Phone: Comment on above: Expected: 09/17/2022, Expires: Start: 09-17-2022 End: 11-17-2022 Topiramate [Mass/volume] in Serum or Plasma TOPIRAMATE BLD Lab Routine Seizure-like activity (HCC) Expected: 09/17/2022, Expires: 11/17/2022 [facility] Work Phone: Comment on above: Expected: 09/17/2022, Expires: 3 Start: 09-11-2022 COVID-19 VACCINE (6 - Moderna risk series) COVID-19 VACCINE (6 - Moderna risk series) [facility] Start: 08-29-2022 End: 10-29-2022 Basic metabolic 2000 panel - Serum or Plasma BASIC METABOLIC PNL Lab Routine Blood creatinine increased compared with prior measurement Expected: 08/29/2022, Expires: 10/29/2022 [facility] Work Phone: Comment on above: Expected: 08/29/2022, Expires: 3 Start: 08-28-2022 ANNUAL PCP TEAM CHRONIC DISEASE VISIT ANNUAL PCP TEAM CHRONIC DISEASE VISIT [facility] Start: 08-16-2022 DEPRESSION ASSESSMENT DEPRESSION ASSESSMENT [facility] Start: 07-21-2022 End: 09-20-2022 ALK PHOS ISOENZYM BL ALK PHOS ISOENZYM BL Lab Routine Elevated alkaline phosphatase level Expected: 07/21/2022, Expires: 09/20/2022 [facility] Work Phone: Comment on above: Expected: 07/21/2022, Expires: 3 Start: 07-21-2022 End: 09-20-2022 Comprehensive metabolic 2000 panel - Serum or Plasma COMP METABOLIC PANEL Lab Routine Elevated liver enzymes Elevated alkaline phosphatase level Expected: 07/21/2022, Expires: 09/20/2022 [facility] Work Phone: Comment on above: Expected: 07/21/2022, Expires: 3 Start: 07-21-2022 End: 09-20-2022 Gamma glutamyl transferase [Enzymatic activity/volume] in Serum or Plasma GGT BLD Lab Routine Elevated alkaline phosphatase level Expected: 07/21/2022, Expires: 09/20/2022 [facility] Work Phone: Comment on above: Expected: 07/21/2022, Expires: 3 Start: 07-17-2022 End: 09-16-2022 Comprehensive metabolic 2000 panel - Serum or Plasma COMP METABOLIC PANEL Lab Routine Prediabetes Expected: 07/17/2022, Expires: 09/16/2022 [facility] Work Phone: Comment on above: Expected: 07/17/2022, Expires: 3 Start: 07-17-2022 End: 09-16-2022 Hemoglobin A1c in Blood HGB A1C Lab Routine Prediabetes Expected: 07/17/2022, Expires: 09/16/2022 [facility] Work Phone: Comment on above: Expected: 07/17/2022, Expires: 3 Start: 07-16-2022 End: 01-14-2023 Dxa bone density study 1/> sites axial skel DXA-AXIAL SKELETON Radiology Routine Osteoporosis, unspecified osteoporosis type, unspecified pathological fracture presence Expected: 07/16/2022, Expires: 01/14/2023 [facility] Work Phone: Comment on above: Expected: 07/16/2022, Expires: 3 Start: 07-16-2022 Hemoglobin A1c/Hemoglobin.total in Blood HBA1C [facility] Start: 06-17-2022 PNEUMOCOCCAL (3 - PPSV23 if available, else PCV20) PNEUMOCOCCAL (3 - PPSV23 if available, else PCV20) [facility] Start: 06-17-2022 PNEUMOCOCCAL (3 - PPSV23 or PCV20) PNEUMOCOCCAL (3 - PPSV23 or PCV20) [facility] Start: 06-17-2022 Pneumococcal vaccination Pneumococcal Vaccine (3 - PPSV23 or PCV20) [facility] Start: 06-17-2022 TWO PNEUMOVAX 5 YEARS APART PRIOR TO AGE 65 (#2) TWO PNEUMOVAX 5 YEARS APART PRIOR TO AGE 65 (#2) [facility] Start: 05-16-2022 COVID-19 VACCINE (5 - Booster for Moderna series) COVID-19 VACCINE (5 - Booster for Moderna series) [facility] Start: 04-16-2022 Influenza vaccination INFLUENZA (#1) [facility] Start: 04-06-2022 Hemoglobin A1c/Hemoglobin.total in Blood HBA1C [facility] Start: 03-11-2022 COVID-19 VACCINE (5 - Booster for Moderna series) COVID-19 VACCINE (5 - Booster for Moderna series) [facility] Start: 01-06-2022 Mammography MAMMOGRAM [facility] Start: 11-26-2021 Hepatitis B surface antibody level LDL CHOLESTEROL [facility] Start: 11-25-2021 End: 01-25-2022 ALBUMIN/CREAT RATIO RND UR ALBUMIN/CREAT RATIO RND UR Lab Routine MIGDALIA (acute kidney injury) (HCC) Prediabetes Primary hypertension Expected: 11/25/2021, Expires: 01/25/2022 [facility] Work Phone: Comment on above: Expected: 11/25/2021, Expires: 2 Start: 11-23-2021 COVID-19 VACCINE (4 - Booster for Moderna series) COVID-19 VACCINE (4 - Booster for Moderna series) [facility] Start: 10-08-2021 End: 10-08-2022 Comprehensive metabolic 2000 panel - Serum or Plasma COMP METABOLIC PANEL Lab Routine MIGDALIA (acute kidney injury) (HCC) Expected: 10/08/2021, Expires: 10/08/2022 [facility] Work Phone: Comment on above: Expected: 10/08/2021, Expires: 3 Start: 08-16-2021 DEPRESSION ASSESSMENT DEPRESSION ASSESSMENT [facility] Start: 2019 Hepatitis B Vaccine (1 of 3 - Risk 3-dose series) Hepatitis B Vaccine (1 of 3 - Risk 3-dose series) [facility] Start: 2019 RSV Vaccine (1 - 1-dose 60+ series) RSV Vaccine (1 - 1-dose 60+ series) [facility] Start: 04-21-2017 End: 04-21-2017 Appointment Appointment [facility] Work Phone: Start: 04-12-2017 End: 04-12-2017 Appointment [facility] Work Phone: Start: 08-05-2012 SHINGRIX VACCINE (2 of 3) SHINGRIX VACCINE (2 of 3) [facility] Start: 12-29-2004 COLOGUARD (FIT-DNA) COLOGUARD (FIT-DNA) [facility] Start: 12-29-[address] COLONOGRAPHY [facility] Start: 12-29-2004 FECAL OCCULT BLOOD FECAL OCCULT BLOOD [facility] Start: 12-29-2004 Screening for malignant neoplasm of colon [facility] Start: 12-29-2004 SIGMOIDOSCOPY SIGMOIDOSCOPY [facility] Start: 12-29-1977 BP CONTROLLED (<130/80) BP CONTROLLED (<130/80) [facility] Start: 12-29-1969 3 comp foot exam completed DIABETIC FOOT EXAM [facility] Start: 12-29-1969 Hepatitis B screening URINE ALBUMIN:CREATININE RATIO [facility] Arthrocentesis aspir&/inj major jt/bursa w/o us DRAIN/INJECT LARGE JOINT/BURSA Procedures Routine Trochanteric bursitis of right hip Ordered: 06/11/2023 [facility] Work Phone: Comment on above: Ordered: 06/11/2023 Arthrocentesis aspir&/inj major jt/bursa w/o us DRAIN/INJECT LARGE JOINT/BURSA Procedures Routine Chronic pain of right knee Ordered: 07/22/2023 [facility] Work Phone: Comment on above: Ordered: 07/22/2023 BACH SCREENING TEST BACH SCREENI NG TEST Procedures Routine Functional neurological symptom disorder with attacks or seizures Ordered: 05/23/2024 [facility] Work Phone: Comment on above: Ordered: 05/23/2024 COLOGUARD COLOGUARD Lab Ro utine Screening for colon cancer Ordered: 01/18/2024 [facility] Comment on above: Ordered: 01/18/2024 End: 08-04-2025 CT Knee - right WO contrast CT KNEE WO IVCON RIGHT Radiology Routine Orthopedic device, implant, or graft complication (HCC) 1 Occurrences starting 07/05/2024 until 08/04/2025 [facility] Work Phone: Comment on above: 1 Occurrences starting 07/05/2024 until 08/04/2025 End: 11-06-2025 CT Knee - right WO contrast CT KNEE WO IVCON RIGHT Radiology Routine Post-traumatic osteoarthritis of right knee Preop examination 1 Occurrences starting 10/09/2024 until 11/06/2025 [facility] Work Phone: Comment on above: 1 Occurrences starting 10/09/2024 until 11/06/2025 Dstr nrolytc agnt parverteb fct addl lmbr/sacral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 12-24-2024 Note HNO ID: [id number] Author: LUCAS CERVANTES MD Service: General Internal Medicine Author Type: Physician Type: Progress Notes Filed: 12/24/2024 10:19 Note Text: INPATIENT PROGRESS NOTES Patient Name: Emely Centeno DATE of SERVICE: 12/24/2024 TIME of SERVICE: 9:00 AM PRIMARY SERVICE: medicine INTERVAL HPI:Uneventful night, no nausea or vomiting. No lightheadedness or dizziness. Pain is well-controlled, ASSESSMENT AND PLAN: Osteoarthritis, status post robotic assisted right total knee arthroplasty, removal of hardware DVT prophylaxis with aspirin 81 mg twice a day Hypothyroidism continue Synthroid Chronic headache continue Topamax Seizure disorders stable Anxiety/depression currently on venlafaxine Acute blood loss anemia start iv iron Prediabetic continue metformin Hyperlipidemia continue statins Post op hypotension resolved . Discussed with May need short term rehab PERTINENT ROS: All other reviewed and negative other than HPI. MEDICATIONS: Current Facility-Administered Medications Medication Dose Route Frequency atorvastatin 20 mg tab(s) (LIPITOR) 20 mg ORAL AT BEDTIME pantoprazole DR 40 mg tab(s) (PROTONIX) 40 mg ORAL BID venlafaxine (EFFEXOR) tab(s) 112.5 mg 112.5 mg ORAL DAILY WITH BREAKFAST And venlafaxine (EFFEXOR) tab(s) 112.5 mg 112.5 mg ORAL DAILY wLUNCH And venlafaxine 75 mg tab(s) (EFFEXOR) 75 mg ORAL DAILY wDINNER gabapentin 600 mg tab(s) (NEURONTIN) 600 mg ORAL TID levothyroxine 50 mcg tab(s) (SYNTHROID) 50 mcg ORAL DAILY topiramate 100 mg tab(s) (TOPAMAX) 100 mg ORAL DAILY And topiramate 300 mg tab(s) (TOPAMAX) 300 mg ORAL AT BEDTIME NaCl 0.9% iv flush bag 20 mL INTRAVENOUS PRN ceFAZolin iv piggyback 2 g in D5W (iso-osmotic) 100 mL (ANCEF) 2 g INTRAVENOUS q 8 HR oxyCODONE IR 5-10 mg tab(s) (ROXICODONE) 5-10 mg ORAL q 3 H PRN HYDROmorphone 0.4 mg injection (DILAUDID) 0.4 mg INTRAVENOUS q 4 H PRN acetaminophen 1,000 mg tab(s) (TYLENOL) 1,000 mg ORAL q 8 H ondansetron orally disintegrating 4 mg tab(s) (ZOFRAN ODT) 4 mg ORAL q 6 H PRN Or ondansetron (PF) 4 mg injection (ZOFRAN) 4 mg INTRAVENOUS q 6 H PRN magnesium hydroxide 400 mg/5 mL 30 mL (MOM) 30 mL ORAL DAILY PRN bisacodyl EC 10 mg tab(s) (DULCOLAX) 10 mg ORAL DAILY aluminum-magnesium hydroxide-simethicone 200-200-20 mg/5 mL 30 mL 30 mL ORAL q 2 H PRN ascorbic acid (vitamin C) 500 mg tab(s) (VITAMIN C) 500 mg ORAL BID w MEALS docusate sodium 100 mg cap(s) (COLACE) 100 mg ORAL BID senna 17.2 mg tab(s) (SENOKOT) 17.2 mg ORAL AT BEDTIME dextrose 40 % 15 g 15 g ORAL PRN Or glucagon 1 mg injection 1 mg INTRAMUSCULAR PRN Or dextrose 10% iv bolus 12.5 g INTRAVENOUS PRN aspirin, enteric coated 81 mg tab(s) 81 mg ORAL BID insulin lispro injection (rapid acting) (ADMElog) SUBCUTANEOUS w MEALS insulin lispro injection (rapid acting) (ADMElog) SUBCUTANEOUS AT BEDTIME latanoprost 0.005 % 1 drop (XALATAN) 1 drop BOTH EYES AT BEDTIME dorzolamide 2 % 1 drop (TRUSOPT) 1 drop BOTH EYES BID And timolol maleate 0.5 % 1 drop (TIMOPTIC) 1 drop BOTH EYES BID ferric gluconate 125 mg in NaCl 0.9% 100 mL (FERRLECIT) 125 mg INTRAVENOUS DAILY AT 6 PM PHYSICAL EXAM: Blood pressure 130/84, pulse 83, temperature 36.5 ?C (97.7 ?F), temperature source Oral, resp. rate 18, height 157.5 cm (5' 2), weight 60.8 kg (134 lb), SpO2 100%. Body mass index is 24.51 kg/m?. GENERAL: Alert, no distress, cooperative NECK: No jugulovenous distention LUNGS: CTAB CARDIAC: Normal S1 and S2; no rubs, murmurs, or gallops ABDOMEN: Abdomen soft, non-tender, BS normal, No masses or organomegaly EXTREMITIES: no edema CBC: Recent Labs 12/22/24 0233 WBC 5.23 RBC 3.22* HB 9.6* HCT 32.0* PLT 217 MCV 99.4 MCH 29.8 MPV 9.8 Coags: CMP: Recent Labs 12/22/24 0233 NA 139 K 4.8 CHLOR 106 CO2 25 BUN 18 CREAT 1.02* GLUC 128* CA 8.4* ANION 8 SIGNATURE: Lucas Cervantes MD [facility] 12-24-2024 Note HNO ID: [id number] Author: DAQUAN SANCHEZ LSW Service: Care Management Author Type: Rubber Calender Helper Type: Care Mgt Progress Note Filed: 12/24/2024 10:01 Note Text: CARE MANAGEMENT PROGRESS NOTE SERVICE DATE: 12/24/2024 SERVICE TIME: 9:58 AM LOS: 1 day CM spoke with pt, and spouse. They are requesting [place] [facility] be notified to review clinicals for possible admission. They wanted a facility near their home, in [place]. Additional SNF options were sent to spouse @ [email or web address] . CM will follow. SIGNATURE: FLAVIO Titus, ACM PATIENT NAME: Emely Centeno DATE: December 24, 2024 TIME: 9:56 AM [facility] 12-24-2024 Note HNO ID: [id number] Author: SCOTT BAUTISTA MD Service: Orthopaedic Surgery Author Type: Physician Type: Progress Notes Filed: 12/24/2024 10:26 Note Text: ORTHOPAEDIC SURGERY PROGRESS NOTE PATIENT NAME: Emely Centeno A/P: 63 year old yo female s/p right femur removal of hardware and conversion to right tka (dos 12/21, Dr. Tinsley) - Activity: TDWB RLE, in hinged knee brace unlocked, AROM only, no PROM - Wound: prevena Dressing to be removed POD7 , change to silverlon after - Drain: - Antibiotics: Completing 24 hours of perioperative Ancef then Doxy 6 weeks - Imaging: complete - Pain - PO and IV breakthrough - DVT prophylaxis - SCDs, ASA 81 BID - HLIV when tolerating sufficient PO - Dahl: none * Discharge planning PT/Dispo: [place] vs home pending clinical progress with PT. Would ideally like to go home S: Doing well, pain well controlled, denies n/v/cp/sob. Much more alert than yesterday. VITALS: 12/23/24 2117 12/23/24 2332 12/24/24 0344 12/24/24 0750 BP: 138/83 128/82 128/79 130/84 Pulse: 90 89 93 83 Resp: 18 19 18 Temp: 36.8 ?C (98.2 ?F) 36.8 ?C (98.2 ?F) 36.5 ?C (97.7 ?F) TempSrc: Oral Oral Oral SpO2: 94% 97% 100% Weight: Height: Intake/Output Summary (Last 24 hours) at 12/24/2024 0815 Last data filed at 12/24/2024 0527 Gross per 24 hour Intake 1103 ml Output 1950 ml Net -847 ml Physical Exam: * Gen: awake, alert, converses appropriately, NAD * Resp: Unlabored on RA, no wheeze * RLE: - dressing c,d,i - 12/18 PF, DF, EHL - SILT L4-S1 - 2+ PT pulse, toes wwp Labs: CBC: Recent Labs 12/22/24232 WBC 5.23 HB 9.6* HCT 32.0* PLT 217 MCV 99.4 RDWCV 15.2* COAG: No results for input(s): APTT, INR in the last 168 hours. BMP: Recent Labs 12/22/24232 GLUC 128* NA 139 K 4.8 CHLOR 106 CO2 25 ANION 8 BUN 18 CREAT 1.02* CHEM: Recent Labs 12/22/24232 CA 8.4* URINALYSIS:No results for input(s): PH, SPGR, UGLUC, UBILI, UKET, UHB, UPROT, UROBIL, UWBC, SSA in the last 168 hours. Invalid input(s): ABHIJIT Bautista MD Adult Reconstruction Fellow Orthopaedic Surgery [facility] 12-23-2024 Note HNO ID: [id number] Author: LUCAS CERVANTES MD Service: General Internal Medicine Author Type: Physician Type: Progress Notes Filed: 12/23/2024 12:09 Note Text: INPATIENT PROGRESS NOTES Patient Name: Emely Centeno DATE of SERVICE: 12/23/2024 TIME of SERVICE: 8:40 AM PRIMARY SERVICE: medicine INTERVAL HPI:Uneventful night, no nausea or vomiting. No lightheadedness or dizziness. Pain is well-controlled ASSESSMENT AND PLAN: Osteoarthritis, status post robotic assisted right total knee arthroplasty, removal of hardware DVT prophylaxis with aspirin 81 mg twice a day Hypothyroidism continue Synthroid Chronic headache continue Topamax Seizure disorders stable Anxiety/depression currently on venlafaxine Acute blood loss anemia start iv iron Prediabetic continue metformin Hyperlipidemia continue statins Post op hypotension resolved . May need short term rehab PERTINENT ROS: All other reviewed and negative other than HPI. MEDICATIONS: Current Facility-Administered Medications Medication Dose Route Frequency atorvastatin 20 mg tab(s) (LIPITOR) 20 mg ORAL AT BEDTIME pantoprazole DR 40 mg tab(s) (PROTONIX) 40 mg ORAL BID venlafaxine (EFFEXOR) tab(s) 112.5 mg 112.5 mg ORAL DAILY WITH BREAKFAST And venlafaxine (EFFEXOR) tab(s) 112.5 mg 112.5 mg ORAL DAILY wLUNCH And venlafaxine 75 mg tab(s) (EFFEXOR) 75 mg ORAL DAILY wDINNER gabapentin 600 mg tab(s) (NEURONTIN) 600 mg ORAL TID levothyroxine 50 mcg tab(s) (SYNTHROID) 50 mcg ORAL DAILY topiramate 100 mg tab(s) (TOPAMAX) 100 mg ORAL DAILY And topiramate 300 mg tab(s) (TOPAMAX) 300 mg ORAL AT BEDTIME NaCl 0.9% iv flush bag 20 mL INTRAVENOUS PRN ceFAZolin iv piggyback 2 g in D5W (iso-osmotic) 100 mL (ANCEF) 2 g INTRAVENOUS q 8 HR oxyCODONE IR 5-10 mg tab(s) (ROXICODONE) 5-10 mg ORAL q 3 H PRN HYDROmorphone 0.4 mg injection (DILAUDID) 0.4 mg INTRAVENOUS q 4 H PRN acetaminophen 1,000 mg tab(s) (TYLENOL) 1,000 mg ORAL q 8 H ondansetron orally disintegrating 4 mg tab(s) (ZOFRAN ODT) 4 mg ORAL q 6 H PRN Or ondansetron (PF) 4 mg injection (ZOFRAN) 4 mg INTRAVENOUS q 6 H PRN magnesium hydroxide 400 mg/5 mL 30 mL (MOM) 30 mL ORAL DAILY PRN bisacodyl EC 10 mg tab(s) (DULCOLAX) 10 mg ORAL DAILY aluminum-magnesium hydroxide-simethicone 200-200-20 mg/5 mL 30 mL 30 mL ORAL q 2 H PRN ascorbic acid (vitamin C) 500 mg tab(s) (VITAMIN C) 500 mg ORAL BID w MEALS docusate sodium 100 mg cap(s) (COLACE) 100 mg ORAL BID senna 17.2 mg tab(s) (SENOKOT) 17.2 mg ORAL AT BEDTIME dextrose 40 % 15 g 15 g ORAL PRN Or glucagon 1 mg injection 1 mg INTRAMUSCULAR PRN Or dextrose 10% iv bolus 12.5 g INTRAVENOUS PRN aspirin, enteric coated 81 mg tab(s) 81 mg ORAL BID insulin lispro injection (rapid acting) (ADMElog) SUBCUTANEOUS w MEALS insulin lispro injection (rapid acting) (ADMElog) SUBCUTANEOUS AT BEDTIME latanoprost 0.005 % 1 drop (XALATAN) 1 drop BOTH EYES AT BEDTIME dorzolamide 2 % 1 drop (TRUSOPT) 1 drop BOTH EYES BID And timolol maleate 0.5 % 1 drop (TIMOPTIC) 1 drop BOTH EYES BID PHYSICAL EXAM: Blood pressure 101/70, pulse 94, temperature 36.7 ?C (98.1 ?F), temperature source Oral, resp. rate 16, height 157.5 cm (5' 2), weight 60.8 kg (134 lb), SpO2 94%. Body mass index is 24.51 kg/m?. GENERAL: Alert, no distress, cooperative NECK: No jugulovenous distention LUNGS: CTAB CARDIAC: Normal S1 and S2; no rubs, murmurs, or gallops ABDOMEN: Abdomen soft, non-tender, BS normal, No masses or organomegaly EXTREMITIES: no edema CBC: Recent Labs 12/22/24 0233 WBC 5.23 RBC 3.22* HB 9.6* HCT 32.0* PLT 217 MCV 99.4 MCH 29.8 MPV 9.8 Coags: CMP: Recent Labs 12/22/24 0233 NA 139 K 4.8 CHLOR 106 CO2 25 BUN 18 CREAT 1.02* GLUC 128* CA 8.4* ANION 8 Cardiac Enzymes: Liver Function, Amylase, Lipase: No results for input(s): TPROT, ALB, ALT, AST, ALKPHOS, TBILI, AMYLASE, LIPASE, LACTATE in the last 24 hours. ABG's: No results for input(s): PH, PCO2, PO2, BE, HCO3, CO2CT, O2HB, COHB, MHGB, TEMP, PHTC, PCO2T, PO2T, O2AD in the last 24 hours. MG/PHOS: No results for input(s): MG, P in the last 24 hours. SIGNATURE: Lucas Cervantes MD [facility] 12-23-2024 Note HNO ID: [id number] Author: SCOTT BAUTISTA MD Service: Orthopaedic Surgery Author Type: Physician Type: Progress Notes Filed: 12/23/2024 10:32 Note Text: ORTHOPAEDIC SURGERY PROGRESS NOTE PATIENT NAME: Emely Centeno A/P: 63 year old yo female POD2 s/p right femur removal of hardware and conversion to right tka (dos 12/21, Dr. Tinsley) - Activity: TDWB RLE, in hinged knee brace unlocked, AROM only, no PROM - Wound: prevena Dressing to be removed POD7 , change to silverlon after - Drain: - Antibiotics: Completing 24 hours of perioperative Ancef then Doxy 6 weeks - Imaging: complete - Pain - PO and IV breakthrough - DVT prophylaxis - SCDs, ASA 81 BID - HLIV when tolerating sufficient PO - Dahl: none * Discharge planning - Await PT recs --> [place] - Case Management --> 11:15 am- PT- acute rehab. Patient having hypotension with therapy. Met with the patient and her at the bedside, plan is to go home at discharge. Updated the patient and her , [facility] has accepted for Home PT when she is ready for discharge. - Dispo: [place] vs home pending clinical progress (no dc today 12/23) S: Doing well, pain well controlled, denies n/v/cp/sob VITALS: 12/22/24 1508 12/22/24 1644 12/22/24 1921 12/22/24 2326 BP: 99/62 104/67 121/75 108/74 Pulse: 95 91 95 97 Resp: 16 16 Temp: 36.7 ?C (98.1 ?F) 36.9 ?C (98.4 ?F) 36.7 ?C (98.1 ?F) TempSrc: Oral Oral SpO2: 91% 93% 91% 94% Weight: Height: Intake/Output Summary (Last 24 hours) at 12/23/2024 0720 Last data filed at 12/23/2024 0615 Gross per 24 hour Intake 3003 ml Output 925 ml Net 2078 ml Physical Exam: * Gen: awake, alert, converses appropriately, NAD * Resp: Unlabored on RA, no wheeze * RLE: - dressing c,d,i - 12/18 PF, DF, EHL - SILT L4-S1 - 2+ PT pulse, toes wwp Labs: CBC: Recent Labs 12/22/24232 WBC 5.23 HB 9.6* HCT 32.0* PLT 217 MCV 99.4 RDWCV 15.2* COAG: No results for input(s): APTT, INR in the last 168 hours. BMP: Recent Labs 12/22/24232 GLUC 128* NA 139 K 4.8 CHLOR 106 CO2 25 ANION 8 BUN 18 CREAT 1.02* CHEM: Recent Labs 12/22/24232 CA 8.4* URINALYSIS:No results for input(s): PH, SPGR, UGLUC, UBILI, UKET, UHB, UPROT, UROBIL, UWBC, SSA in the last 168 hours. Invalid input(s): ABHIJIT Bautista MD Adult Reconstruction Fellow Orthopaedic Surgery [facility] 12-22-2024 Telephone encounter Note Date/Time: 12/22/2024 11:38 AM Spoke with Spouse @ phone #: [phone] ([employer]) - Preferred # for contact: Have you received help from a home care company in the last 60 days? No Are you agreeable to HHC services? Yes What address will we be seeing you at? [address] [place], [place] [id number] Do you have any upcoming appointments or things we need to schedule around? No Do you have a teachable CG or can you manage your care independently? Yes Who? Spouse T [facility] 12-22-2024 Miscellaneous Notes Date/Time: 12/22/2024 11:38 AM Spoke with Spouse @ phone #: - Preferred # for contact: Have you received help from a home care company in the last 60 days? No Are you agreeable to HHC services? Yes What address will we be seeing you at? [address] [place] [id number] Do you have any upcoming appointments or things we need to schedule around? No Do you have a teachable CG or can you manage your care independently? Yes Who? Spouse documented in this encounter [facility] 12-22-2024 Note HNO ID: [id number] Author: LUCAS CERVANTES MD Service: General Internal Medicine Author Type: Physician Type: Progress Notes Filed: 12/22/2024 10:04 Note Text: INPATIENT PROGRESS NOTES Patient Name: Emely Centeno DATE of SERVICE: 12/22/2024 TIME of SERVICE: 7:0 AM PRIMARY SERVICE: medicine INTERVAL HPI:Uneventful night, no nausea or vomiting. No lightheadedness or dizziness. Pain is well-controlled ASSESSMENT AND PLAN: Osteoarthritis, status post robotic assisted right total knee arthroplasty, removal of hardware from right finger DVT prophylaxis with aspirin 81 mg twice a day Hypothyroidism continue Synthroid Chronic headache continue Topamax Seizure disorders stable Anxiety/depression currently on venlafaxine Prediabetic continue metformin Hyperlipidemia continue statins Plan of care discussed with: Provider, RN, Patient. PERTINENT ROS: All other reviewed and negative other than HPI. MEDICATIONS: Current Facility-Administered Medications Medication Dose Route Frequency atorvastatin 20 mg tab(s) (LIPITOR) 20 mg ORAL AT BEDTIME pantoprazole DR 40 mg tab(s) (PROTONIX) 40 mg ORAL BID venlafaxine (EFFEXOR) tab(s) 112.5 mg 112.5 mg ORAL DAILY WITH BREAKFAST And venlafaxine (EFFEXOR) tab(s) 112.5 mg 112.5 mg ORAL DAILY wLUNCH And venlafaxine 75 mg tab(s) (EFFEXOR) 75 mg ORAL DAILY wDINNER gabapentin 600 mg tab(s) (NEURONTIN) 600 mg ORAL TID levothyroxine 50 mcg tab(s) (SYNTHROID) 50 mcg ORAL DAILY topiramate 100 mg tab(s) (TOPAMAX) 100 mg ORAL DAILY And topiramate 300 mg tab(s) (TOPAMAX) 300 mg ORAL AT BEDTIME NaCl 0.9% iv flush bag 20 mL INTRAVENOUS PRN ceFAZolin iv piggyback 2 g in D5W (iso-osmotic) 100 mL (ANCEF) 2 g INTRAVENOUS q 8 HR oxyCODONE IR 5-10 mg tab(s) (ROXICODONE) 5-10 mg ORAL q 3 H PRN HYDROmorphone 0.4 mg injection (DILAUDID) 0.4 mg INTRAVENOUS q 4 H PRN acetaminophen 1,000 mg tab(s) (TYLENOL) 1,000 mg ORAL q 8 H ondansetron orally disintegrating 4 mg tab(s) (ZOFRAN ODT) 4 mg ORAL q 6 H PRN Or ondansetron (PF) 4 mg injection (ZOFRAN) 4 mg INTRAVENOUS q 6 H PRN magnesium hydroxide 400 mg/5 mL 30 mL (MOM) 30 mL ORAL DAILY PRN [START ON 12/23/2024] bisacodyl EC 10 mg tab(s) (DULCOLAX) 10 mg ORAL DAILY aluminum-magnesium hydroxide-simethicone 200-200-20 mg/5 mL 30 mL 30 mL ORAL q 2 H PRN ascorbic acid (vitamin C) 500 mg tab(s) (VITAMIN C) 500 mg ORAL BID w MEALS docusate sodium 100 mg cap(s) (COLACE) 100 mg ORAL BID senna 17.2 mg tab(s) (SENOKOT) 17.2 mg ORAL AT BEDTIME dextrose 40 % 15 g 15 g ORAL PRN Or glucagon 1 mg injection 1 mg INTRAMUSCULAR PRN Or dextrose 10% iv bolus 12.5 g INTRAVENOUS PRN aspirin, enteric coated 81 mg tab(s) 81 mg ORAL BID insulin lispro injection (rapid acting) (ADMElog) SUBCUTANEOUS w MEALS insulin lispro injection (rapid acting) (ADMElog) SUBCUTANEOUS AT BEDTIME PHYSICAL EXAM: Patient Vitals for the past 24 hrs: BP Temp Temp src Pulse Resp SpO2 Height Weight 12/22/24 0824 -- -- -- -- -- 95 % -- -- 12/22/24 0701 100/68 36.6 ?C (97.9 ?F) Oral 90 18 98 % -- -- 12/22/24 0405 115/71 36.5 ?C (97.7 ?F) Oral 84 16 96 % -- -- 12/22/24 0005 125/83 36.6 ?C (97.9 ?F) Oral 73 16 100 % -- -- 12/21/242049 -- -- -- -- -- -- 157.5 cm (5' 2) 60.8 kg (134 lb) 12/21/24 1856 114/73 36.6 ?C (97.9 ?F) Oral 75 16 100 % -- -- 12/21/24 1825 106/73 36.6 ?C (97.9 ?F) Oral 76 16 96 % -- -- 12/21/24 1800 117/69 -- -- 73 7 97 % -- -- 12/21/24 1747 113/75 -- -- 73 17 99 % -- -- 12/21/24 1745 113/75 -- -- 75 17 99 % -- -- 12/21/24 1730 113/75 -- -- 72 17 99 % -- -- 12/21/24 1715 109/73 -- -- 73 17 99 % -- -- 12/21/24 1700 111/72 -- -- 78 10 99 % -- -- 12/21/24 1645 108/67 -- -- 78 11 97 % -- -- 12/21/24 1630 100/61 -- -- 85 11 95 % -- -- 12/21/24 1615 125/70 -- -- 89 7 93 % -- -- 12/21/24 1606 122/72 -- -- 79 23 97 % -- -- 12/21/24 1600 122/72 -- -- 80 10 96 % -- -- 12/21/24 1545 120/74 -- -- 75 11 97 % -- -- 12/21/24 1530 143/77 -- -- 77 22 99 % -- -- 12/21/24 1515 124/78 -- -- 75 15 100 % -- -- 12/21/24 1500 129/81 -- -- 80 16 100 % -- -- 12/21/24 1451 129/84 36.7 ?C (98.1 ?F) Temporal 81 17 100 % -- -- Body mass index is 24.51 kg/m?. GENERAL: Alert, no distress, cooperative NECK: No jugulovenous distention LUNGS: Lungs clear to auscultation, CARDIAC: Normal S1 and S2; no rubs, murmurs, or gallops ABDOMEN: Abdomen soft, non-tender, BS normal, No masses or organomegaly EXTREMITIES: no edema CBC: Recent Labs 12/22/24 0233 WBC 5.23 RBC 3.22* HB 9.6* HCT 32.0* PLT 217 MCV 99.4 MCH 29.8 MPV 9.8 Coags: CMP: Recent Labs 12/22/24 0233 NA 139 K 4.8 CHLOR 106 CO2 25 BUN 18 CREAT 1.02* GLUC 128* CA 8.4* ANION 8 Cardiac Enzymes: Liver Function, Amylase, Lipase: No results for input(s): TPROT, ALB, ALT, AST, ALKPHOS, TBILI, AMYLASE, LIPASE, LACTATE in the last 24 hours. ABG's: No results for input(s): PH, PCO2, PO2, BE, (more content not included)... [facility] 12-22-2024 Note HNO ID: [id number] Author: ROXANNE CONTRERAS RN Service: Care Management Author Type: Registered Nurse Type: Care Mgt Initial Assessment Filed: 12/22/2024 11:16 Note Text: CARE MANAGEMENT: ASSESSMENT AND DISCHARGE PLAN SERVICE DATE: December 22, 2024 SERVICE TIME: 8:54 AM PCP: Eugene Sanchez MD Primary Contact: Extended Emergency Contact Information Primary Emergency Contact: Nathan Centeno Mobile Relation: Spouse Admission Status: Extended Recovery Insurance Provider: MEDICARE A AND B Discharge Planning requested by: Per Department Practice Potential Transition Plans Home OT/PT Advance Directives Current Advance Directive: Health Care Power of Business Employment Specialist In Chart: No Current Living Arrangements and Support Lives with: Spouse/significant other Type of Residence: Private Residence (House) Does the patient have to climb stairs at home?: Yes, stairs outside the home, stairs within the home Support: Spouse/significant other How do you manage to accomplish the following: Independent: Ambulation, Bathe/Shower, Dress, Meals/Meal Prep, Going to the bathroom, Medication Management, Transportation to appointments/community Current Services/Equipment Current Post-Acute Service(s): DME Current DME Type: Cane Discharge Planning Patient Goal(s): Be able to go home [place] Choice Explained: [place] Given: Yes Level of Care Discussed: Home Care Are you interested in bedside delivery of your medications? Yes Discharge Planning Participant(s): Patient Patient/Family Comments: Caregiver Assessment: Caregiver is ready, willing and able to meet the patient's needs as recommended by the inter-professional team: Yes Name of Caregiver: Transport at Discharge: Transportation Arrangements: Car Needs Prior to Discharge: Needs Prior to Discharge: OT/PT Evaluation Post-Acute Discharge Plan: Review of the chart and met with the patient. The patient lives with her in a 2 story home with her bedroom on the 2nd floor. PT- Pending. Discussed discharge planning with the patient. The patient plans on discharging home with Home PT. Referral to [facility]. CM department will continue to follow for DC needs. 9:13 am- [facility] able to accept. 11:15 am- PT- acute rehab. Patient having hypotension with therapy. Met with the patient and her at the bedside, plan is to go home at discharge. Updated the patient and her , [facility] has accepted for Home PT when she is ready for discharge. SIGNATURE: Roxanne Contreras RN PATIENT NAME: Emely Centeno DATE: December 22, 2024 TIME: 8:53 AM [facility] 12-22-2024 Note HNO ID: [id number] Author: DEAN TINSLEY MD Service: Orthopaedic Surgery Author Type: Physician Type: Progress Notes Filed: 12/22/2024 07:53 Note Text: ORTHOPAEDIC SURGERY PROGRESS NOTE PATIENT NAME: Emely Centeno A/P: 63 year old yo female POD1 s/p right femur removal of hardware and conversion to right tka - Activity: TDWB RLE, in hinged knee brace, AROM only, no PROM - Wound: prevena Dressing to be removed POD7 , change to silverlon after - Drain: - Antibiotics: Completing 24 hours of perioperative Ancef then Doxy 6 weeks - Imaging: complete - Pain - PO and IV breakthrough - DVT prophylaxis - SCDs, ASA 81 BID - HLIV when tolerating sufficient PO - Dahl: none * Discharge planning - Await PT recs --> consults today - Case Management --> assessment today - Dispo: anticipate DC to SNF on POD 2/3 S: Doing well, pain well controlled, denies n/v/cp/sob VITALS: 12/21/24 2050 12/22/24 0005 12/22/24 0405 12/22/24 0701 BP: 125/83 115/71 100/68 Pulse: 73 84 90 Resp: 16 16 18 Temp: 36.6 ?C (97.9 ?F) 36.5 ?C (97.7 ?F) 36.6 ?C (97.9 ?F) TempSrc: Oral Oral Oral SpO2: 100% 96% 98% Weight: 60.8 kg (134 lb) Height: 157.5 cm (5' 2) Intake/Output Summary (Last 24 hours) at 12/22/2024 0752 Last data filed at 12/22/2024 0449 Gross per 24 hour Intake 2356 ml Output 1050 ml Net 1306 ml Physical Exam: * Gen: awake, alert, converses appropriately, NAD * Resp: Unlabored on RA, no wheeze * RLE: - dressing c,d,i - 12/18 PF, DF, EHL - SILT L4-S1 - 2+ PT pulse, toes wwp Labs: CBC: Recent Labs 12/22/24 023 WBC 5.23 HB 9.6* HCT 32.0* PLT 217 MCV 99.4 RDWCV 15.2* COAG: No results for input(s): APTT, INR in the last 168 hours. BMP: Recent Labs 12/22/24 0233 GLUC 128* NA 139 K 4.8 CHLOR 106 CO2 25 ANION 8 BUN 18 CREAT 1.02* CHEM: Recent Labs 12/22/24 023 CA 8.4* URINALYSIS:No results for input(s): PH, SPGR, UGLUC, UBILI, UKET, UHB, UPROT, UROBIL, UWBC, SSA in the last 168 hours. Invalid input(s): ABHIJIT Tinsley MD Associate Staff Physician [facility] Department of Orthopedic Surgery [phone] [facility] 12-21-2024 Note HNO ID: [id number] Author: KHOI AGARWAL PA-C Service: General Surgery Author Type: Physician Water Gas Operator Type: Progress Notes Filed: 12/21/2024 18:51 Note Text: POSTOP PROGRESS NOTE SERVICE DATE: 12/21/2024 SERVICE TIME: 6:48 PM Subjective CHIEF COMPLAINT: Right knee traumatic arthritis INTERVAL HISTORY OF PRESENT ILLNESS: This is a 63 year old female postop right total knee replacement, removal of hardware right femur. Patient rates their pain 2/10 and states it is well controlled at this time. PT evaluated: No. Seen in PACU. Objective PHYSICAL EXAM: BP 106/73 Pulse 76 Temp (Src) 97.9 (Oral) Resp 16 Ht 5' 2 (1.58m) Wt 134 lb (60.8kg) SpO2 96% BMI 24.50 kg/(m2). O2 Therapy: Nasal Cannula, Liters (Numeric Only): 2.00 Physical Exam: Right Leg: Sensation intact to light touch. Patient is able to dorsiflex and plantarflex the right ankle. Patient is able to wiggle toes. 2+DP and PT. Capillary refill <2. Silverlon, prevena dressing in place without evidence of leak.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 told they had her marked as a male. I told her they had also asked if she was a female. [facility] Miscellaneous Notes* Telephone Encounter - Nellie Rm RN - 04/05/2024 9:59 AM EDT Ranjit with [employer] called in and wanted to check that they had the same spelling, sex, and birthday of the Pt. She said they received a letter from the Pts insurance that the Pts first name was spelled wrong. They told her that the Pts first name was spelled Trice not Emely. They just needed their records to match our and they did. Called and let Pt know she should call her insurance company and make sure that they get her name updated to the correct spelling. She also said she had been told they had her marked as a male. I told her they had also asked if she was a female. [facility] Telephone encounter Note * Telephone Encounter - Nelda Pichardo MA - 03/31/2024 5:04 PM EDT Next appointment 05/18/2024 Nelda Pichardo MA [facility]08-16-2024 Miscellaneous Notes* Telephone Encounter - Nelda Pichardo MA - 03/31/2024 5:04 PM EDT Next appointment 05/18/2024 Nelda Pichardo MA * Telephone Encounter - Lea Rosa RN - 03/30/2024 1:39 PM EDT Patient calls and is requesting refills for medication. Patient reports that at last refill she wasonly given 30 days worth of medication. Patient states that she did not get a 90 day supply of medication. Tried to call pharmacy to confirm this. [facility] currently are out on lunch break. Lea Rosa RN [facility] Telephone encounter Note * Telephone Encounter - Lea Rosa RN - 03/30/2024 1:39 PM EDT Patient calls and is requesting refills for medication. Patient reports that at last refill she wasonly given 30 days worth of medication. Patient states that she did not get a 90 day supply of medication. Tried to call pharmacy to confirm this. [facility] currently are out on lunch break. Lea Rosa RN [facility]08-12-2024 Telephone encounter Note* Telephone Encounter - Bakari Ortiz LPN - 03/27/2024 6:29 PM EDT Prescription Refill Information The patient has been identified by name and date of : Yes Caregiver verified no other encounters exist for this prescription request: Yes Caregiver confirmed with patient/requestor that no other refills are due, in the near future, with this provider at this time: Yes The last office visit in the department: 01/18/24 Does the patient have a future office visit with this provider/department: Yes, 07/19/24 Requested Prescriptions Pending Prescriptions Disp Refills levothyroxine (SYNTHROID) 50 mcg tablet 90 tablet 1 Sig: Take 1 tablet by mouth once daily. Bakari Ortiz LPN March 27, 2024 6:29 PM [facility]08-12-[facility] Miscellaneous Notes* Telephone Encounter - Bakari Ortiz LPN - 03/27/2024 6:29 PM EDT Prescription Refill Information The patient has been identified by name and date of : Yes Caregiver verified no other encounters exist for this prescription request: Yes Caregiver confirmed with patient/requestor that no other refills are due, in the near future, with this provider at this time: Yes The last office visit in the department: 01/18/24 Does the patient have a future office visit with this provider/department: Yes, 07/19/24 Requested Prescriptions Pending Prescriptions Disp Refills levothyroxine (SYNTHROID) 50 mcg tablet 90 tablet 1 Sig: Take 1 tablet by mouth once daily. Bakari Ortiz LPN March 27, 2024 6:29 PM documented in this encounterA[facility]24 NoteDate of Procedure 03/14/2024 [place] Protocol Safety Checklist Sign In: A moment to CARE completed, Special equipment verified, Appropriate PPE verified, Patient name, date of , allergies and intended procedure verified. Provider Confirms: Correct side/site marked visible, Consent documented and matches the intended procedure, Intended patient and procedure match the source document. No relevant labs, photos, and/or imaging studies to review. No medications required for procedure. No fire risk. No implants. Anesthesia None. Pre Laser Meds 1-2 drops Tropicamide 1%, 1-2 drops Phenylephrine 2.5%. Laser Paramters Power: 1.7-2.6. Total Spots: 45. Total Energy: 111.94. Post Laser Meds None. Home Going Prescription None. Sign Out Sign out discussion completed, All instruments, equipment, and/or possible retained foreign bodies accounted for, Post-procedure follow up management communicated. No specimens.[facility] Instructions* Patient Instructions* Katherine Dowd MD - 03/14/2024 7:51 AM EDT You had a YAG-Capsulotomy, a laser procedure to cut a hole in the cloudy membrane that developed behind your lens implant. Medications Please continue your glaucoma medications as usual. What to Expect Today, your eye will likely be a little blurry, and typically that will be better by tomorrow. It is common to see a large floater, caused by the membrane fragment floating in the eye. The floater almost always goes away in a few days to a couple weeks. Please call if you have any of the following symptoms: Sudden onset of new floaters (especially if they are multiple or different from what you saw shortly after the laser,) flashing lights (often like a silver streak of light,) discomfort and/or light sensitivity that worsens or fails to improve in 24-48 hours, blurry vision that worsens or fails to improve in 24-48 hours, other symptoms that concern you. If you have questions, my office phone number is [phone]. After hours, and on weekends or holidays, please call the [facility] self propelled dredge operator at [phone] and ask for the eye doctor production maintenance mechanic. documented in this encounterAultman Hospital07-30-2024 NoteHNO ID: [id number] Author: KATHERINE DOWD MD Service: ? Author Type: Physician Type: Progress Notes Filed: 03/14/2024 08:05 Note Text: Tmax: unknown - low per pt; 13, 16 on latanoprost 02/2020 Pachy: 576, 573 Lasers and Surgeries: OD: 11/27/21 phaco-Xen (cat, VF prog, DH, IOP11 on3) 11/2015 SLT ([place]) OS: 10/2015 SLT ([place]) Ocular Medication Intol and Non-efficacy: - Referred by Rena (from [place]) Now on Latanoprost qd OU (OD 11/2022 DH @ 10mmHg) Cosopt bid OU (07/2023 DH OD at low IOP) PFAT's frequently OD Severe Stage LTG -HVF 10/2023 OD large dense sup arc encroaching fixation, dense inf arc. Very stable from 03/2023, but worse than 10/2021 OS - -OCT 02/2020 OD small disc, mil/mod sup and inf thinning OS severe diffuse loss -blind OS - RVO, end-stage cupping -Mult DH OD 07/2023 @ 8-11mmHg 11/2022 @ 10mmHg 05/2022 @ 15mmHg (x2 DH) 01/2022 @ 7mmHg 09/2021 @ 11mmHg 03/2021 @ 11mmHg 10/2020 @ 10mmHg -OS: Severe and glaucoma, IOP typically low 11-13, 8mmHg -OD: -07/2023 She felt like vision is continuing to decline, with more vision loss sup-nasally. +DH: changed timolol to Cosopt -not taking BP meds -no suspicion for sleep apnea -IOP great today 6 months HVF OD, dilate OU PCO OD -she notes some vision decline: more difficulty reading -BCVA 20/40, glare LP (02/29/24) -Here for YAG OD -done without complications ==Unedited prior notes== Prediabetes -no retinopathy today Transient vision loss(?) -about 10 days, woke up in the morninig with a cloudy [place] around the periphery of her vision, no central loss. 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 I have seen and examined Emely Centeno. I have discussed the case and the management of this patient's care with the Resident/Fellow, if applicable. I also have reviewed, edited as necessary, and agree with the assessment and plan as stated above and agree with all of its relevant components.[facility]07-30-2024 History of Present illness Narrative* Katherine Dowd MD - 03/14/2024 7:49 AM EDT Tmax: unknown - low per pt; 13, 16 on latanoprost 02/2020 Pachy: 576, 573 Lasers and Surgeries: OD: 11/27/21 phaco-Xen (cat, VF prog, DH, IOP11 on3) 11/2015 SLT ([place]) OS: 10/2015 SLT ([place]) Ocular Medication Intol and Non-efficacy: - Referred by Rena (from [facility]) Now on Latanoprost qd OU (OD 11/2022 DH @ 10mmHg) Cosopt bid OU (07/2023 DH OD at low IOP) PFAT's frequently OD Severe Stage LTG -HVF 10/2023 OD large dense sup arc encroaching fixation, dense inf arc. Very stable from 03/2023, but worse than10/2021 OS - -OCT 02/2020 OD small disc, mil/mod sup and inf thinning OS severe diffuse loss -blind OS - RVO, end-stage cupping -Mult DH OD 07/2023 @ 8-11mmHg 11/2022 @ 10mmHg 05/2022 @ 15mmHg (x2 DH) 01/2022 @ 7mmHg 09/2021 @ 11mmHg 03/2021 @ 11mmHg 10/2020 @ 10mmHg -OS: Severe and glaucoma, IOP typically low 11-13, 8mmHg -OD: -07/2023 She felt like vision is continuing to decline, with more vision loss sup-nasally. +DH: changed timolol to Cosopt -not taking BP meds -no suspicion for sleep apnea -IOP great today 6 months HVF OD, dilate OU PCO OD -she notes some vision decline: more difficulty reading -BCVA 20/40, glare LP (02/29/24) -Here for YAG OD -done without complications ==Unedited prior notes== Prediabetes -no retinopathy today Transient vision loss(?) -about 10 days, woke up in the morninig with a cloudy [place] around the periphery of her vision, nocentral loss. 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 I have seen and examined Emely Taryn. I have discussed the case and the management of this patient's care with the Resident/Fellow, if applicable. I also have reviewed, edited as necessary, and agree with the assessment and plan as stated above and agree with all of its relevant components. documented in this encounterAultman Hospital07-29-[facility]24 Telephone encounter Note * Telephone Encounter - Linnea Brumfield APRN.CNP - 03/13/2024 4:30 PM EDT Can I write an appeal? [facility]07-29-2024 Miscellaneous Notes* Telephone Encounter - Linnea Brumfield APRN.CNP - 03/13/2024 4:30 PM EDT Can I write an appeal? * Telephone Encounter - Rubi Fox - 03/13/2024 12:08 PM EDT Please advise on how you would like to proceed. Rubi Fox * Telephone Encounter - Camila Adame - 03/13/2024 11:57 AM EDT Patient Last Name OLDER Patient First Name EMELY VERDIN Date of 1960 Clinical Clearance / Financial Clearance Status Pending Clinical Clearance Notifications are supported by our dayday policy and used when an immediate payer source is not available. The CCN process can allow cases to be completed while still working to obtain payer s authorization due to urgency or medical necessity. This process should not preclude usfrom completing the steps needed to secure authorization such us P2P and appeal as this will still allow us to receive the appropriate reimbursement. Denial Overview Denial Type Payer Clinical Guidelines Not Met Denial Rationale Your doctor told us that you have nerve pain coming from your low back. A shot to treat this was requested. We cannot approve this request. The notes sent to us do not show: There was at least 50% less pain for at least two weeks after the last injection and there was improved function and/or less need for pain medicine or other services. We told your doctor about this. Please talk to your doctorif you have questions. This decision was based on [facility] Comprehensive Musculoskeletal Management Guideline, CMM 200: Epidural Steroid Injections (KAREN). Date of Service 03/20/2024 Scheduled Is Peer to Peer Available? (Instructions below) No Peer to Peer Deadline N/A Appeal Deadline (Instructions below) 180 Calendar days from denial date on 03/09/2024 Insurance Case Information Insurance Name GREGORY Patient's Insurance Case# [id number] Ordering Provider LINNEA BRUMFIELD Approved Services N/A Denied Services [id number] NJX AA&/STRD TFRML EPI LUMBAR/SACRAL 1 LEVEL Alternative Recommendation N/A *Service which can be approved in place of denied service. Clinical Documentation Provided Peer to Peer Instructions Peer to Peer Phone# N/A Does Peer to Peer need to be scheduled? N/A Who can complete the Peer to Peer? N/A Additional Peer to Peer Instructions N/A Appeal [place] [address] Appeal Required Form(s) No Additional Appeal Instructions Send it attention to: Appeals department and include: coversheet with patient's and case information, a formal appeal letter and attach any pertinent supporting clinical documentation. Facility Information Location [facility] [id number] Tax ID# [id number] documented in this encounterAultman Hospital07-29-2024 Telephone encounter Note * Telephone Encounter - Rubi Fox - 03/13/2024 12:08 PM EDT Please advise on how you would like to proceed. Rubi Fox [facility]07-29-2024 Telephone encounter Note* Telephone Encounter - Camila Adame - 03/13/2024 11:57 AM EDT Patient Last Name OLDER Patient First Name EMELY VERDIN Date of 1960 Clinical Clearance / Financial Clearance Status Pending Clinical Clearance Notifications are supported by our dayday policy and used when an immediate payer source is not available. The CCN process can allow cases to be completed while still working to obtain payer s authorization due to urgency or medical necessity. This process should not preclude usfrom completing the steps needed to secure authorization such us P2P and appeal as this will still allow us to receive the appropriate reimbursement. Denial Overview Denial Type Payer Clinical Guidelines Not Met Denial Rationale Your doctor told us that you have nerve pain coming from your low back. A shot to treat this was requested. We cannot approve this request. The notes sent to us do not show: There was at least 50% less pain for at least two weeks after the last injection and there was improved function and/or less need for pain medicine or other services. We told your doctor about this. Please talk to your doctorif you have questions. This decision was based on [facility] Comprehensive Musculoskeletal Management Guideline, CMM 200: Epidural Steroid Injections (KAREN). Date of Service 03/20/2024 Scheduled Is Peer to Peer Available? (Instructions below) No Peer to Peer Deadline N/A Appeal Deadline (Instructions below) 180 Calendar days from denial date on 03/09/2024 Insurance Case Information Insurance Name GREGORY Patient's Insurance Case# [id number] Ordering Provider LINNEA BRUMFIELD Approved Services N/A Denied Services [id number] NJX AA&/STRD TFRML EPI LUMBAR/SACRAL 1 LEVEL Alternative Recommendation N/A *Service which can be approved in place of denied service. Clinical Documentation Provided Peer to Peer Instructions Peer to Peer Phone# N/A Does Peer to Peer need to be scheduled? N/A Who can complete the Peer to Peer? N/A Additional Peer to Peer Instructions N/A Appeal Instructions Appeal Address [address] [address] Appeal Required Form(s) No Additional Appeal Instructions Send it attention to: Appeals department and include: coversheet with patient's and case information, a formal appeal letter and attach any pertinent supporting clinical documentation. Facility Information Location [facility] [id number] Tax ID# [id number] [facility]07-29-2024 Instructions* Patient Instructions* Eduardo Vasquez - 03/13/2024 11:42 AM EDT Images from the original note were not included. What is Plantar Fasciitis? Plantar fasciitis is the most common cause of heel pain. The pain is caused by inflammation of the plantar fascia. If you strain your plantar fascia, it becomes weak, swollen and irritated (inflamed). The resulting pain may be isolated in the heel or may appear at different points on the bottom of the foot, from time to time; it may occur in one foot or both. Some think that plantar fasciitis pain is caused by irritation of nerves from tissue swelling or inflammation, but it is debatable. Plantar fasciitis is common in middle-aged people; it also occurs in younger people who are on their feeta lot, such as athletes or soldiers. The plantar fascia is a strong band of connective tissue that extends from the base of the toes, along the bottom of the foot, to the bottom of the heel (calcaneous bone); it acts like a bowstring tomaintain the arch of the foot. What are heel spurs? The inflammatory reaction of the heel bone may produce spike-like projections of new bone, called heel spurs. The spurs sometimes show on X-rays. They neither cause the initial pain nor do they causethe initial problem. However, later, having to walk on spurs may cause sharp pain. What causes plantar fasciitis? Plantar fasciitis is caused by straining the ligament that supports your arch. Repeated strain can cause tiny tears in the ligament. These lead to pain and swelling. During walking, the plantar fascia experiences tension up to twice the body weight with each step. While this is normal, those who spend much time on their feet, such as nurses, certified optician/waiters, andmail carriers, often experience plantar fasciitis. Athletes involved in tennis or other racquet sports, race walking, jogging or running also show a higher incidence of plantar fasciitis than do those participating in other activities. Thus, it's clear that plantar fasciitis is predominantly an overuse injury. In fact, any activity that results in prolonged tension and stress on the plantar fascia may cause plantar fasciitis. It is possible that changes in footwear may play a role in causing plantar fasciitis, no matter what activity is occurring. Those who are overweight are prone to plantarfasciitis. This is true even for sedentary people who get little physical activity. Abnormalities of the foot and ankle joints may predispose some individuals to development of plantar fasciitis (specifically, over pronation of the subtalar joint). Contributing Factors * Flat feet * Toe running, hill running * Sudden weight increase * High-arched, rigid feet * Soft terrain, e.g. running on sand * Obesity * Pronated feet (rolled inward) * Sudden increase in activity* Family tendency * Poor shoe support * Worn out or poorly fitted shoes * Increasing age * Walking,standing or running for long periods of time, especially on hard surfaces. How is the Injury Treated? Rest Your Feet: Limit, or if possible, stop activities that are causing your heel pain. Try to avoid running or walking on hard surfaces, such as concrete. Use pain as your guide. If your foot is toopainful, rest it. Ice: Ice the sore area for 30 to 60 minutes, several times a day, to reduce inflammation and relieve pain. Apply a plastic bag of crushed ice (or a bag of frozen peas) over a towel. Ice the sore areafor 15 minutes after activity/exercise. Application of heat is not generally recommended, as heat ex pands the bone and connective tissue, perhaps exerting greater pressure on nerves and thereby increasing pain. If heat is used, follow it with ice. Medication: If your condition developed recently, anti-inflammatory/analgesic medication, combined with heel pads (see below) may be all that is necessary to relieve pain and to reduce inflammation. If no pain relief has occurred after 2- 3 weeks, however, your doctor may inject either cortisone or local anesthetic directly into the tender area. Exercises: Do simple exercises, such as calf stretches and towel stretches (see below) several times a day, especially when you first get up in the morning. These can help your ligament become more flexible and strengthen the muscles that support your arch. Shoes: Poorly fitting shoes can cause plantar fasciitis. The best type of shoe to wear is a good walking or running shoe with good shock absorption and excellent arch support. You should choose the one that fits the best. [place] with your athletic shoes to find a pair that is comfortable and causes fewer symptoms. Put your shoes on as soon as you get out of bed; going barefoot or wearing slippers may make your pain worse. Good brands include (but are not limited to): New Balance, Asics, Saucony, SAS and Merrel s. Taping: Your doctor may tape your foot to maintain the arch. This takes some of the tension off theplantar fascia. Weight Loss: If your weight is putting extra stress on your feet, your doctor may encourage you to try a weight-loss program. Orthotics: An orthotic insole is a molded piece of rubber, plastic, or other material that you insert into your shoe. It corrects the alignment of your foot and cushions your foot from excessive pounding. These may be prescription or non-prescription. Prescription orthotics are custom-fitted and may fit better and control pain better, but are very expensive. Night Splints: A night splint holds the foot with the toes pointed up and the ankle at a 90-degree angle. This position applies a constant, gentle stretch to the plantar fascia. Corticosteroid Shots: Steroids may be injected into the tender area to reduce inflammation. REHAB Exercises to stretch the plantar fascia, the calf muscles, and the Achilles tendon. Tightness of the muscles of the calves may contribute to plantar fasciitis, so stretching the calf muscles is important to rehabilitation, as is stretching of the plantar fascia itself. Plantar fascial stretches Assisted Dorsiflexion/Plantar Fascia Stretch: Sit on the floor or ground, barefoot, with both legs outstretched. Use a towel or elastic band and wrap it around the ball (and not the toes) of the affected foot. Use the towel or elastic band to provide resistance to upward movement of the forefoot. Pull foot upward (toward your body) with the help of the elastic band or towel, and then return to the starting position. Ten repetitions are recommended. Perform the sequence at least three times a day. Alternate Plantar Fascia Stretch: Sit upright in a chair, barefoot. Place the ankle of the affectedfoot on your opposite knee. Using the same hand as the affected foot, reach across and grab the toes. Flex the ankle toward and pull the toes toward the martinez. To test the stretch, place the thumb of your hand on the bottom of the foot. You should be able to feel the cord-like plantar fascia, running the length of the foot. Hold the stretch for a count of 10, then relax. Repeat 10 times. Do the sequence at least three times a day. Achilles/Calf Stretches Strengthening the muscles of the calves may contribute to successful rehabilitation of plantar fasciitis, as well as prevent reoccurrence. The exercises below will help strengthen the calf muscles. Calf and Achilles Tendon Stretch (Gastrocnemius Stretch): Face a wall, standing an arm's length away. Place one foot back. Place both hands on the wall. Bend the elbows and knee of your forward leg, keeping the heel of the backward foot on the floor and keeping your body straight (aligned), until your forehead nearly touches the wall, or until significant stretch is felt in the muscles of the calf of the backward leg. Hold this position for 10 to 15 seconds. Extend elbows (straighten your arms and stand upright again) and maintain this position for 10 seconds. Repeat this cycle 15 to 20 times. Switch legs and repeat the exercise. STEROID INJECTION You have been injected with a corticosteroid and local anesthesia today. This should provide reliefof symptoms for the next 8 hours or so. After this time frame you will likely experience an increase in pain symptoms again until the effects of the steroid start to work, which should occur within 24-48 hours. Approximately 2% of individuals may experience a post injection flare or severe worsening of symptoms following injection. If this occurs ice the area and take Tylenol or Aleve for pain. In some very rare instances skin depigmentation and joint infection may occur. Joint infection is aconcern if you experience any of the following: pain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 [History Last Taken 12/15/15] rizatriptan 10 mg disintegrating tablet 10 mg PO DAILY PRN PRN Headache 12/16/15[History Last Taken Unknown] ascorbic acid (vitamin C) 1,000 mg tablet 4 g PO DAILY supplement 12/30/17 [History Last Taken 08/23/21] cholecalciferol (vitamin D3) 25 mcg (1,000 unit) tablet 1,000 unit PO DAILY supplement 12/30/17 [History Last Taken 08/23/21] ferrous sulfate 325 mg (65 mg iron) tablet (Feosol) 325 mg PO QDAY supplement 12/30/17 [History Last Taken 08/23/21] cyanocobalamin (vitamin B-12) 1,000 mcg/mL injection solution 100 mcg IM QMONTH vitamin 07/26/19 [History Last Taken Unknown] lisinopril 10 mg tablet 10 mg PO DAILY #90 tabs 07/26/19 [Rx Last Taken Unknown] amlodipine 5 mg tablet 5 mg PO DAILY bp 08/23/21 [History Last Taken 08/22/21] cyclobenzaprine 5 mg tablet 10 mg PO TID PRN Spasms 08/23/21 [History Last Taken Unknown] dorzolamide (PF) 2 % (PF) eye drops 1 drp EACH EYE BID eye health 08/23/21 [History Last Taken Unknown] folic acid 1 mg tablet 1 mg PO DAILY supplement 08/23/21 [History Last Taken 08/23/21] gabapentin 300 mg tablet 600 mg PO TID pain 08/23/21 [History Last Taken 08/23/21] hydroxyzine pamoate 25 mg capsule 50 mg PO TID anxiety 08/23/21 [History Last Taken 08/23/21] loratadine 10 mg capsule 10 mg PO DAILY allergies 08/23/21 [History Last Taken 08/23/21] lorazepam 0.5 mg tablet 0.5 mg PO DAILY PRN Anxiety 08/23/21 [History Last Taken 08/22/21] metformin 500 mg tablet 500 mg PO DAILY BS 08/23/21 [History Last Taken 08/23/21] timolol maleate 0.5 % once daily eye drops 1 drp EACH EYE DAILY eye health 08/23/21 [History Last Taken Unknown] topiramate 100 mg tablet 100 mg PO QHS anxiety 08/23/21 [History Last Taken 08/22/21] venlafaxine 75 mg tablet 75 mg PO TID muscle 08/23/21 [History Last Taken 08/23/21] atorvastatin 20 mg tablet 20 mg PO DAILY 04/19/23 [History Last Taken Unknown] denosumab 60 mg/mL subcutaneous syringe (Prolia) 60 mg subcut .EVERY 6 MONTHS 04/19/23 [History Last Taken Unknown] diclofenac epolamine 1.3 % transdermal 12 hour patch 180 mg topical BID 04/19/23[History Last Taken Unknown] ondansetron 4 mg disintegrating tablet 4 mg PO DAILY 04/19/23 [History Last Taken Unknown] Allergy/AdvReac Type Severity Reaction Status Date / Time No Known Allergies Allergy Verified 04/19/23 22:41 Family History Sister Asthma Diabetes Hypertension High cholesterol Osteoporosis Mother Diabetes High cholesterol Hypertension Osteoporosis Thyroid disorder Skin cancer Brother Diabetes Hypertension High cholesterol Father Heart disease Hypertension CVA (cerebral vascular accident) Surgical History History of esophagogastroduodenoscopy (EGD) (2016) History of gastric bypass History of hysterectomy History of laparoscopic cholecystectomy History of lumpectomy of right breast History of tubal ligation Social History Smoking Status: Never smoker alcohol intake: never substance use type: does not use ROS ROS ED ROS Narrative Constitutional: No fever, no chills. HEENT: No sore throat. No neck pain. No loss of vision. No rhinorrhea. Cardiovascular: Right-sided rib pain/chest pain. No palpitations. No pedal edema. Respiratory: No cough, no shortness of breath. Abdominal: No abdominal pain. No nausea. No vomiting. Genitourinary: No dysuria. No hematuria. Musculoskeletal: No myalgias. No arthralgias. Neurologic: No headaches. No dizziness. No lightheadedness. Questionable seizure versus syncope. Reported mental status change-resolved. Amnestic to event. Skin: No rash. No change in color. Psychiatric: No depression. No anxiety. EXAM Physical Exam Narrative Exam Narrative: Afebrile. Vital signs noted. GCS 15. ABCs intact. HEENT: Normocephalic. Atraumatic. PERRL, EOMI. Neck soft and supple. No pointtenderness or step off. Full range of motion without pain. Cardiovascular: Regular rate and rhythm. No murmurs, rubs, or gallops appreciated. Mild tenderness to palpation right posterior ribs, no ecchymosis, no crepitance. Respiratory: No tachypnea. Lungs clear to auscultation bilaterally. Gastrointestinal: Abdomen soft, nontender, with normoactive bowel sounds. No rebound or guarding. Neurological: Awake. Alert. Oriented x3. Currently at baseline according to family. Nonfocal, nonlateralizing. Skin: No rash. Normal color. No pallor. Musculoskeletal: No pedal edema. Full range of motion extremities. Const Vital Signs: 04/19/23 22:32 04/19/23 23:04 04/19/23 23:07 Temperature 96.7 F L 96.7 F L Temperature Source Temporal Pulse Rate 75 Respiratory Rate 16 Respiratory Effort Normal Respiratory Depth Normal Respiratory Pattern Normal Blood Pressure 90/70 116/81 H Blood Pressure Mean 76 92 Pulse Ox 98 98 98 Oxygen Delivery Method Room Air Room Air Room Air MDM MDM MDM Narrative Medical decision making narrative: Upon arrival, although patient is hypotensive at 90/70,. She may have had a syncopal episode from orthostatic hypotension, or just a fall. It does not sound like she had a tonic-clonic seizure. In order to rule out closed head injury with traumatic hemorrhage, CT of the brain will be obtained. I do not feel that she requires a CT of the neck. When her came to the room, shewas awake but mildly combative. She is currently calm. For her right-sided ribpain, I will obtain rib series with chest x-ray to help rule out fracture. I will obtain basic laboratory work including CBC, CMP, and a lactic acid. She was bolused normal saline 1 L intravenously. Repeat blood pressure is now normal at 116/81. Txpzf-[id number] glucose was obtained and reviewed and is normalat 74. I reviewed her medication list and she takes topiramate for anxiety. She is on gabapentin. I do not really see a antiepileptic listed. I reviewed her laboratory work and she has a normal white count of 4.4, hemoglobin stable at 10.2, platelet count normal at 283. Electrolyte panel shows normal sodium of 142, potassium normal 3.9, chloride slightly elevated at 116 which I think is nonspecific, BUN of 24 with creatinine 1.19 for slight increase. She may be dehydrated. Glucose is 77 on her BMP. Her [id number] glucose was 74. I learned later that EMS upon arrival showed her to have a blood sugar of 57, she was given glucose and it raised up to above 70. She may have had attack of hypoglycemia. She states that she does not have a blood glucose monitor but is prediabetic and takes metformin. Advised her to ensure that she is eating before she takes her metformin, and additionally she should invest in a glucose monitor. Lipase is normal at 67. CT of the brain was obtained and radiology report reviewed which shows no evidence of a skull fracture or intracranial hemorrhage. Additionally I reviewed and interpreted her right rib x-rays with chest x-ray and see no evidence of a fracture or pneumothorax, no evidence of pneumonia. I reviewed the radiology report of her rib x-rays and see no evidence of an acute fracture. This confirms my independent interpretation. Given that her transient mental status has resolved, I do think that it may have been secondary to hypoglycemia and that she had a fall secondary to it. EKG was obtained and interpreted by myself independently as normal sinus rhythm at 70 bpm without ectopy or acute ST changes. Her lactic acid is normal at 1.0. Her blood pressure has normalized. She may have also had orthostatic hypotension. At this point in time however, Masood not feel that she requires observation. I feel she be discharged safely homewith follow-up. Return instructions to the emergency department were reviewed. Disposition is discharged home in stable condition. History & Record Review Discussion w/independent historian: Patient and Family Additional record(s) reviewed:: Prior ED visit and Prior labs Lab Data Attestation: I reviewed the patient's lab results. Labs: Laboratory Results - last 24 hr 04/19/23 04/19/23 22:40 22:43 WBC 4.4 RBC 3.43 L Hgb 10.2 L Hct 33.6 L MCV 98.0 MCH 29.7 MCHC 30.4 L RDW Std Deviation 52.5 H RDW Coeff of Lobo 14.6 Plt Count 283 MPV 10.0 Immature Gran % (Auto) 0.500 Neut % (Auto) 44.9 L Lymph % (Auto) 33.7 [place] % (Auto) 10.9 H Eos % (Auto) 9.1 H Baso % (Auto) 0.9 Absolute Neuts (auto) 2.0 Absolute Lymphs (auto) 1.48 Nucleated RBC % 0 Sodium 142 Potassium 3.9 Chloride 116 H Carbon Dioxide 24.0 Anion Gap 2 L BUN 24 H Creatinine 1.19 H Estim Creat Clear Calc 41.78 Est GFR (MDRD) Af Amer 59 L Est GFR (MDRD) Non-Af 49 L BUN/Creatinine Ratio 20.2 H Glucose 77 Lactic Acid 1.0 Calcium 8.3 L Total Bilirubin 0.20 AST 33 ALT 43 Alkaline Phosphatase 103 Total Protein 6.1 L Albumin 3.4 Globulin 2.7 Albumin/Globulin Ratio 1.3 Lipase 67 POC Glucose 74 Radiography Diagnostic Testing: Clinical Impression(s) from Imaging Studies Brain CT 04/19/23 22:51 IMPRESSION: Normal unenhanced CT scan of the brain. Electronically Signed: Sarah Mancini MD at 23:26 EDT Reading Location ID and State: Drea Willett MD Tel , Service support , Ribs w/Chest X-Ray 04/19/23 22:51 IMPRESSION: No evidence of displaced rib fracture. Electronically Signed: Sarah Mancini MD at 23:35 EDT Reading Location ID and State: Drea Willett MD Tel , Service support , Discharge Plan Triage Chief Complaint: Fall ED Provider: Ramon Alvarado Dx/Rx/DC Orders Prescriptions: No Action ferrous sulfate [Feosol] 325 mg (65 mg iron) tablet 325 mg PO QDAY cyanocobalamin (vitamin B-12) 1,000 mcg/mL solution 100 mcg IM QMONTH lisinopril 10 mg tablet 10 mg PO DAILY Qty: 90 5RF levothyroxine 50 MCG tablet 50 mcg PO DAILY Patient Comments: THYROID pantoprazole 40 MG tablet 40 mg PO BID Patient Comments: ACID REFLUX zolpidem 10 MG tablet 10 mg PO QHS Patient Comments: SLEEP latanoprost 1 DROP bottle 1 drp EACH EYE QHS Patient Comments: EYE DROPS rizatriptan 10 MG tablet,disintegrating 10 mg PO DAILY PRN PRN (Reason: Headache) Patient Comments: HEADACHE ascorbic acid (vitamin C) 1,000 mg tablet 4 g PO DAILY Patient Comments: SUPPLEMENT cholecalciferol (vitamin D3) 1,000 unit tablet 1,000 unit PO DAILY Patient Comments: SUPPLEMENT metformin 500 mg Tablet 500 mg PO DAILY venlafaxine 75 mg Tablet 75 mg PO TID amlodipine 5 mg tablet 5 mg PO DAILY Patient Comments: Take 1 tablet by mouth once daily. lorazepam 0.5 mg Tablet 0.5 mg PO DAILY PRN (Reason: Anxiety) folic acid 1 mg Tablet 1 mg PO DAILY topiramate 100 mg Tablet 100 mg PO QHS cyclobenzaprine 5 mg Tablet 10 mg PO TID PRN (Reason: Spasms) gabapentin 300 mg Tablet 600 mg PO TID timolol maleate 0.5 % Drops, Once Daily 1 drp EACH EYE DAILY loratadine 10 mg Capsule 10 mg PO DAILY dorzolamide (PF) 2 % Drops 1 drp EACH EYE BID hydroxyzine pamoate 25 mg capsule 50 mg PO TID Patient Comments: Take 1 capsule by mouth three times daily as needed for anxiety. ondansetron 4 mg tablet,disintegrating 4 mg PO DAILY atorvastatin 20 mg tablet 20 mg PO DAILY Patient Comments: Take 1 tablet by mouth daily at bedtime. For cholesterol. diclofenac epolamine 1.3 % patch 12 hour 180 mg topical BID Prolia 60 mg/mL syringe 60 mg subcut .EVERY 6 MONTHS Primary Care Provider: Angelo Sanchez Referrals: Angelo Sanchez MD [Primary Care Provider] - What to do if you have Problems For any increased pain, shortness of breath, bleeding, nausea or vomiting, chestpain, or any unexpected problems, contact your Primary Care Provider. Call [facility] ([phone]) or report to the closest Emergency Room. Call 911 if necessary. 04/19/23 3920 <Electronically signed by Ramon Alvarado MD> Cosigner Signature (if applicable): CC: Dr. Angelo Sanchez MD ~ Signed [facility] Work Phone: [phone]) 355-269808-25-2023 Miscellaneous Notes* Telephone Encounter - Gina Matos Ma - 04/09/2023 1:16 PM EDT Pt notified. Gina Matos Ma * Telephone Encounter - Gina Matos Ma - 04/09/2023 1:14 PM EDT ----- Message from Eugene Sanchez MD sent at 04/09/2023 10:43 AM EDT ----- Normal MRI of her brain for age. No acute findings that would contribute to memory. documented in this encounterA[facility] History of Present illness Narrative* Linnea Chang RT(R) - 04/09/2023 10:00 AM EDT Radiology Service Progress Note PATIENT NAME: Emely Centeno DATE OF SERVICE: April 09, 2023 TIME: 10:21 AM PATIENT IDENTITY VERIFICATION COMPLETED USING TWO (2) IDENTIFIERS: Name and Date of confirmedby patient verbally. FALL SCREENING: Has the patient had 2 falls in the last year or 1 fall with injury or currently using an Ambulatory Assistive Device (Walker, Cane, Wheelchair, Crutches, etc.)? No PATIENT GENDER DATA: Female. status: : No status: NO. PATIENT RELEVANT IMPLANT DATA REVIEWED: Yes RADIOLOGY DEPARTMENT: MR; Exam(s) Completed: Head: Routine Brain PERIPHERAL IV DATA: Not applicable SIGNED BY: RT Ivet(R) April 09, 2023 10:21 AM documented in this encounterAultman Hospital08-25-2023 Miscellaneous Notes* Addendum Note - Gina Tomas PA-C - 04/09/2023 9:20 AM EDTAddended by: GINA TOMAS on: 04/09/2023 09:20 AM Modules accepted: Orders * Telephone Encounter - Gina Tomas PA-C - 04/09/2023 9:19 AM EDT The following approved medication requests have been transmitted electronically. Requested Prescriptions Signed Prescriptions Disp Refills ondansetron (ZOFRAN) 4 mg tablet 30 tablet 1 Sig: Take 1 tablet by mouth every 8 hours as needed for nausea/vomiting. Gina Tomas PA-C. April 09, 2023 9:19 AM * Telephone Encounter - Ankit Damon RN - 04/09/2023 8:52 AM EDT Called Pt to determine severity of current ROGER. States has had worse ROGER's in the past. She states she had a Steroid dose pack from 2 years ago that she took and now states ROGER is completely gone. I let her know I would send message to provider. Chuy RN * Telephone Encounter - Teresita Currie - 04/06/2023 9:37 AM EDT Patient last seen on 01/21/23. documented in this encounterAultman [facility]08-24-[facility]23 History of Present illness Narrative* Casper Medrano MD - 04/08/2023 12:46 PM EDT Casper Medrano MD Department of Orthopaedics Orthopaedics [address] [facility] [address] Dept: [phone] Dept April 08, 2023 CHIEF COMPLAINT: Post Op of the Left Hand. HPI Patient here for 8 weeks 6 days post op Left thumb CMC arthroplasty with trapeziectomy, and 1st dorsal compartment release. Patient denies any pain today. States she completed OT on Wednesday. She is continuing home exercises. ASSESSMENT: M18.12 Primary osteoarthritis of first carpometacarpal joint of left hand (primary encounter diagnosis) SUMMARY/PLAN: She is about 9 weeks after surgery and doing quite well. Gaining her strength. Really no pain. Justfinished occupational. She can follow-up as needed. Exam: Healed incision. Good range of motion. Imaging: Deferred Supporting Information Below: Medications: Current Outpatient Medications Medication Sig LORazepam (ATIVAN) 0.5 mg Take 1 tablet by mouth twice daily as needed for up to 30 days. For up to30 days atorvastatin (LIPITOR) 20 mg tablet Take 1 tablet by mouth daily at bedtime. For cholesterol. zolpidem (AMBIEN) 10 mg Take 1 tablet by mouth daily at bedtime for 30 days. topiramate (TOPAMAX) 100 mg tablet Take 3 tablets by mouth daily at bedtime. cyclobenzaprine (FLEXERIL) 10 mg tablet Take 1 tablet by mouth three times daily as needed for muscle spasm. Syringe with Needle, Disp, 1 mL 25 gauge x 1 syrg 1 Device once every month. For vitamin B12 injection. cyanocobalamin 1,000 mcg/mL Inject 1 mL intramuscularly once every month. venlafaxine (EFFEXOR) 75 mg tablet Take 1 tablet by mouth three times daily with meals for 90 doses. diclofenac (FLECTOR) 1.3 % topical patch Apply 1 Patch as directed twice daily. Apply 1 patch to most painful area 2 times a day baclofen 2 %, bupivacaine 1 %, diclofenac 1 %, gabapentin 10 % (CPD) Comments for compounding pharmacy: Apply 1-3 grams (pumps) to the affected area 3-4 times daily. May make substitutions as needed. gabapentin (NEURONTIN) 600 mg tablet Take 1 tablet by mouth three times daily for 180 days. rizatriptan (MAXALT) 10 mg tablet Take 1 tablet by mouth as needed. FOR MIGRAINE HEADACHE (SEE ADMINISTRATION INSTRUCTIONS). Can repeat one time in 2 hours if needed. No more than 2 doses in 24 hours. Max 9 days a month. 36 tablets is a 90 day supply timolol maleate (TIMOPTIC) 0.5 % ophthalmic solution Use 1 Drop in both eyes every morning. latanoprost (XALATAN) 0.005 % ophthalmic solution Use 1 Drop in both eyes once daily. pantoprazole DR (PROTONIX) 40 mg tablet Take 1 tablet by mouth twice daily. levothyroxine (SYNTHROID) 50 mcg tablet Take 1 tablet by mouth once daily. denosumab (PROLIA) 60 mg/mL Inject 1 mL subcutaneously once every 6 months. carboxymethylcellulose sodium (ARTIFICIAL TEARS, CMC, OPHTHALMIC) Use in eyes. PF PRN OU metFORMIN (GLUCOPHAGE) 500 mg tablet Take 1 tablet by mouth daily with breakfast. amLODIPine (NORVASC) 5 mg tablet Take 1 tablet by mouth once daily. clobetasol (TEMOVATE) 0.05 % ointment Apply 1 application to affected area as directed. cholecalciferol (VITAMIN D3) 50 mcg (2,000 unit) tablet Take 2,000 Units by mouth once daily. folic acid/multivit-min/lutein (CENTRUM SILVER ORAL) Take by mouth. ASCORBIC ACID (VITAMIN C ORAL) Take 4,000 Units by mouth once daily. No current facility-administered medications for this visit. Allergies: Patient has no known allergies. Casper Medrano MD documented in this encounterAultman Hospital08-23-2023 History of Present illness Narrative* Katherine Dowd MD - 04/07/2023 9:49 AM EDT Tmax: unknown - low per pt; 13, 16 on latanoprost 02/2020 Pachy: 576, 573 Lasers and Surgeries: OD: 11/27/21 phaco-Xen (cat, VF prog, DH, IOP11 on3) 11/2015 SLT ([place]) OS: 10/2015 SLT ([place]) Ocular Medication Intol and Non-efficacy: - [facility] Now on Latanoprost qhs OU (OD 11/2022 DH @ 10mmHg) Timolol OU qam (resumed OD 05/2022 for DH @ 15) PFAT's frequently OD Severe Stage LTG -HVF 03/2023 OD large dense sup arc further encroaching fixation form 10/2021, dense inf arc, OS - -OCT 02/2020 OD small disc, mil/mod sup and inf thinning OS severe diffuse loss -blind OS - RVO, end-stage cupping -Mult DH OD 11/2022 @ 10mmHg 05/2022 @ 15mmHg (x2 DH) 01/2022 @ 7mmHg 09/2021 @ 11mmHg 03/2021 @ 11mmHg 10/2020 @ 10mmHg -OS: Severe and glaucoma, IOP typically low 11-13, 8mmHg -OD: Resumed timolol 05/2022 for DH x2. Recurrent DH 11/2022: resumed latanoprost, again encouraged qam dosing of timolol. IOP is improved nicely which is important since VF is worse than 17 mos ago 4 months refract OD, BAT OD, dilate OD PCO OD -she notes some vision decline -notes glare -doesn't quite meet criteria for YAG but she is close ==Unedited prior notes== Transient vision loss(?) -about 10 days, woke up in the morninig with a cloudy [place] around the periphery of her vision, nocentral loss. Went back to sleep for an hour and when she arose it had resolved -no darkness of her vision, no pain -doesn't sound classically ischemic -discussed symptoms of CVA/TIA, ischemic vision loss, when to go to the ED Benign nevus OS (not addressed today) -stable BRVO OS 09/2016 ERM OS -follows with retina/Dr Ministerio Brown in [facility] Scribe Attestation: By signing my name below, I, Suresh Fox, attest that this documentation has been prepared under the direction and in the presence of Katherine Dowd MD. Electronically Signed:cory Kothari, April 07, 2023 9:49 AM I, Katherine Dowd MD, personally performed the services described in this documentation. All medical record entries made by the scribe were at my direction and in my presence. I have reviewed the chart and discharge instructions (if applicable) and agree that the record reflects my personal per formance and is accurate and complete. I have confirmed and edited as necessary the relevant ophthalmic history, ROS, and the neuro exam findings as obtained by others. I have seen and examined Emely Anthony Older. I have discussed the case and the management of this patient's care with the Resident/Fellow, if applicable. I also have reviewed and agree with the assessment and plan as stated above and agree with all of its relevant components. Electronically Signed: Katherine Dowd MD, April 07, 2023 11:27 AM documented in this encounterAultman Hospital08-22-2023 History of Present illness Narrative* Zina Wise APRN.NEON INSTALLER - 04/06/2023 3:36 PM EDT Images from the original note were not included. PSYC FOLLOW UP - PSYCHIATRIC PROGRESS NOTE DIAGNOSIS: Primary insomnia Panic disorder with agoraphobia MDD, recurrent, mild GAF: -60-51 Moderate symptoms or moderate difficulty in social, occupational or school functioning. TREATMENT PLAN: Work on decreasing the number of Ativan due to cognitive side effects and some struggles with falls. Consider addition of Buspar if anxiety increase while Ativan is being decreased. Continue Venlafaxine and Ambien at the same dose. Follow up in 4 weeks. The effects and side effects of all the medications were reviewed in detail with the patient. She is in agreement with the treatment plan and aware to reach out with any questions, concerns, or worsening of symptoms. PDMP report was reviewed and found to be appropriate without any signs of misuse or diversion CC: Follow up for psychiatric medication management. I have communicated my name and active licensure. The patient's identity and physical location wereverified at the time of this visit. Either the patient or their legal service center representative has been informed of the risks and benefits of -- and alternatives to -- treatment through a remote evaluation andconsents to proceed with the evaluation remotely. HPI: Emely Anthony Older is a 62 year old Female with a history of Insomnia, panic disorder, and MDD presenting today for follow-up. Date of last visit: 10/21/2022 Plan from last visit: Continue psychiatric medications at the same dose. Consult placed for DBT IOP to learn skills to manage her anxiety. Contact insurance to get a list of therapist that she is able to work with more often to manage heranxiety symptoms. Follow up after completing IOP. Today Roma shares that life has been like a roller coaster. She tried the DBT IOP program but feltthat it was not a good fit. She restarted therapy with Dr. Del Toro. Unsure why he recommended discontinuing therapy. She enjoyed talking to him. She has had 6 seizures (PENS) this month and has been struggling with more migraines and headaches.Continues to struggle with chronic pain. It has been interfering with her ability to fall and stay asleep. She has been struggling with some cognitive difficulties and has experienced falls. We discussed the risks of fpc Ativan use. She continues to struggle with anxiety, especially when she leaves her safe place which is her home. She is in agreement of decreasing the ativan number and not take it consistently to manage her anxiety. Interval Progress: Slightly improved Risks and benefits of the medication, including any black box warnings, were discussed with the patient. Social History: See HPI PATIENT DATA: Generalized Anxiety Disorder Scale (BHAVIK-7) BHAVIK - 7 SCORES 12/08/2022 01/21/2023 04/04/2023 BHAVIK-7 Score 18 20 18 (0-4) minimal anxiety, (5-9) mild anxiety, (10-14) moderate anxiety, (15-21) severe anxiety Patient Health Questionnaire (PHQ-9) PHQ-9 12/08/2022 01/21/2023 04/04/2023 Score 16 15 16 (0-4) minimal depression, (5-9) mild depression, (10-14) moderate depression, (15-19) moderately severe depression, (20-27) severe depression ROS: See HPI General: Negative for fever, malaise, unintentional weight loss HEENT: Negative for recent changes in vision or hearing, no nasal drainage Respiratory: Negative for cough, wheezing or SOB Cardiovascular: Negative for chest pain GI: Negative for nausea, vomiting, change in bowel habits MUSCULOSKELETAL: See HPI SKIN: Negative for rash NEURO: See HPI VITAL SIGNS: BP 122/78 (04/06/23 1535) Temp Pulse 100 (04/06/23 1535) Resp SpO2 MENTAL STATUS EXAMINATION: Appearance: Appropriately groomed, appears stated age Behavior: Appropriately engaged Psychomotor: No psychomotor agitation Cognition Level of Consciousness: Awake and alert. No fluctuation in wakefulness. Orientation: Grossly oriented Memory: Intact Attention/Concentration: Good Fund of Knowledge: Able to demonstrate an awareness of current events. Mood: Euthymic Affect: Congruent to mood Speech/Language: Appropriate tone, prosody, matt, phonetics, and syntax Thought Form: Goal-directed. No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 encouraged to follow up with her individual outpatient therapist, or seek engagement and rapport with new therapist if interested. Pt has completed safety plan from program to refer to if/as needed which includes crisis textline and hotline information; as well as LISA information. Pt encouraged to reach out to program atany time. SIGNATURE: MCKINLEY Nunez PATIENT NAME: Emely Centeno DATE: December 14, 2022 TIME: 1:23 PM documented in this encounterA[facility]04-28-2023 Miscellaneous Notes* Telephone Encounter - Sara Arellano Ma - 12/11/2022 11:55 AM EDT I called and left a message for patient to contact the office. See message below. * Telephone Encounter - Dana Tejeda PA-C - 12/10/2022 8:31 AM EDT Not sure if we can offer her a nurse visit and fit her with another [facility] brace? Or she can order newbraces on [employer], [employer], look like they are $40. * Telephone Encounter - Sarah Pinto - 12/09/2022 12:19 PM EDT Pt calling to see about getting another brace for her left hand. She lost the one that was given toher at the 02/23/2022 appt. Advised that I would relay request and have office call her back when able to provide. Sarah Pinto documented in this encounterAultman [facility]04-27-2023 Miscellaneous Notes* Telephone Encounter - Sarah Bueno LPN - 12/10/2022 3:24 PM EDT Spoke with pt and information listed below given. Pt verbalizes understanding. Sarah Bueno LPN * Telephone Encounter - Eugene Sanchez MD - 12/10/2022 3:19 PM EDT Referral order in place. Looks like she is already seeing him with last OV 10/2022 so I am guessing this is an insurance request. * Telephone Encounter - Estefany Powers - 12/10/2022 2:05 PM EDT Patient is requesting psychology referral in order to be seen by Saul Del Toro. documented in this encounterAultman [facility]04-26-2023 History of Present illness Narrative* Samantha Ely [facility] - 12/09/2022 9:00 AM EDTSummary: DBT IOP Group *This service is provided virtually via [employer]. IOP (INTENSIVE OUTPATIENT PROGRAM) PROGRESS NOTE SERVICE DATE: 12/09/22 SERVICE TIME: 9AM-noon BEHAVIOR: Appearance: Casually groomed Attitude: Cooperative Affect: Restricted to appropriate. Mood: Depressed, anxious and pleasant Orientation: Oriented to person, place and time Thought:: Logical, needing prompting and support for further insight Speech: Normal Eye Contact: Intermittent; as well as observed with connectivity issues Describe Change Noted Throughout the Day: N/A- as noted above GROUP THERAPY: Process Therapy Start Time: 9:00 am Total Time: 50 minutes # of Patients: 8 THERAPEUTIC FOCUS: Check-In PROBLEM(S) ADDRESSED: -Mental health issues INTERVENTIONS: Review DBT skills practiced, mood symptoms, urge behaviors, self-injury / suicidal / violence behaviors that necessitate need for continued IOP therapy. Review of individualized goals to increase functioning to support discharge to more independent level of care. Reviewed patient-completed daily self-report to assess for concerns related to medications, SI, changes with sleep, appetite, energy level. RESPONSE: Appears attentive, engaged and participative. Pt's check-in focused on: Pt. Spoke about feeling 'wiped out' yesterday and her highest emotion wasdepression. Pt. Said she coped by going to bed, waking up to have dinner with her and then going back to bed. Pt. Noted being in group and thinking about things she does not want to think about has increased her emotion. Pt. Said she know yesterday hit home for her and she was 'in a sweat'.Pt. Was able to work through technology issues and is working actively on learning how to use the chat and check in process. Patient Affirms Safety. Patient Data IOP Daily Questionnaire IOP Daily 12/07/2022 12/07/2022 12/07/2022 Today, is your belief in your ability to use your Safety Plan in a crisis at 90%? Yes Yes Yes Today, have you wished you were or wished you could go to sleep and not wake up? No No No Today, have you actually had any thoughts of killing yourself? No No No On a scale of 1 to 10 how would you rate your mood now? 3 3 3 Process Therapy Start Time: 10:00 am Total Time: 50 minutes # of Patients: 8 THERAPEUTIC FOCUS: Education and discussion around distress tolerance and skills of willingness, turn the mind and half smile. PROBLEM(S) ADDRESSED: -Mental health issues INTERVENTIONS: Mindfulness practice implemented and processed. Discussion and education around distress tolerance and skills of willingness, turn the mind and half smile. Collaboratively explored these concepts as a group with general examples and in connection to members' individualized experiences. RESPONSE: Appears attentive and passive. Pt primarily actively listened throughout the psychoeducational dialogue on distress tolerance and skills of willingness, turn the mind and half smile, observed as attentive through non- verbals such as head-nodding, taking notes, etc. Pt observed to log out of group and in response program staff reached out to patient via email with group link. Process Therapy Start Time: 11:00 am Total Time: 50 minutes # of Patients: 8 THERAPEUTIC FOCUS: Coping Skills PROBLEM(S) ADDRESSED: -Mental health issues INTERVENTIONS: Facilitated discussion regarding various group member concerns, with focus on current needs and interests. Provided feedback, supportive, reflective listening and facilitated connections between group members as they explored current stressors/symptoms through the context of program information. Assessed safety prior to patients leaving for day. RESPONSE: Pt observed to return to group given group link, when present Pt observed to be attentivein group discussion, with no spontaneous engagement or sharing. Patient Affirms Safety. Patient reaffirmed Safety Plan and can stay safe from harm. PLAN: Continue IOP and current treatment plan. Co-facilitated between: Samantha Ely [facility], and Sari Fernandez [facility], ATR documented in this encounterAultman [facility]04-26-2023 Miscellaneous Notes* Plan of Care - MCKINLEY Nunez - 12/09/2022 9:00 AM EDTSummary: DBT IOP weekly summary Images from the original note were not included. WEEKLY TREATMENT TEAM PROGRESS NOTE INTENSIVE OUTPATIENT PROGRAM December 09, 2022 Safety Assessment: Suicide risk: Low: Modifiable risk factors and strong protective factors, desire to end pain. Notesthat she is safe and denies SI and also that she is tired of being in pain and that sleep is her only relief from the pain. Pt has completed safety plan from program to refer to if/as needed; this ischecked daily in check in groups. Pt. Has affirmed safety daily in groups and with her initial H&P appointment this week. Self-Injury risk: low, Pt denies urges daily and upon intake assessment and H&P and throughout group sessions. Pt is monitored daily through use of diary card, and daily check in groups. Weekly update on patient progress summarized: Pt attended 3/3 days in IOP this week with plans to resume treatment tomorrow 12/10. When in group, was Pt on time for sessions daily? Yes Pt participated in diary card review and daily check in sessions this week: Yes; though observed tonot complete check in through chat, rather needs prompting and support from program staff to verbalize. Pt reports engaging in urges of: worry/ spiral thoughts, and isolation most frequently this week, with skill usage identified as: reminding self that worry and spiraling is not logical or helpful; aswell as support and initiation from spouse. Pt participated in group therapy sessions this week: Yes; Pt is observed to follow along with groupdiscussion with lack of spontaneous engagement or sharing unless called upon; observed with potential hesitation due to physical health difficulties/ such as vision and has been observed to be makingchanges to help self (e.g use of magnifying glass). She notes engagement in activities due to initiation by despite interest in being able to initiate herself. Pt participated in psycho-education sessions of mindfulness practices, opposite to emotion action of sadness and anger, and distress tolerance skills of willingness, half smile and turn the mind thisweek: with plans to review interpersonal skills tomorrow. Did Pt send in completed diary card to staff? No; patient is encouraged to complete diary card daily and send completed diary card weekly to program staff for additional support. Interval Progress: Maintaining Patient Data Generalized Anxiety Disorder Scale (BHAVIK-7) BHAVIK - 7 SCORES 10/21/2022 11/24/2022 12/08/2022 BHAVIK-7 Score 18 20 18 (0-4) minimal anxiety, (5-9) mild anxiety, (10-14) moderate anxiety, (15-21) severe anxiety Mindful Attention Awareness Scale (LUIZ) Mindful Attention Awareness Scale (LUIZ) 11/24/2022 12/08/2022 Mindful Attention Awareness Scale Score Incomplete Incomplete Mindful Attention Awareness Scale Mean Score Incomplete Incomplete Patient Health Questionnaire (PHQ-9) PHQ-9 10/21/2022 11/24/2022 12/08/2022 Score 14 19 16 (0-4) minimal depression, (5-9) mild depression, (10-14) moderate depression, (15-19) moderately severe depression, (20-27) severe depression Plan: Continue in IOP per Master Treatment Plan. Its observed per chart that patient has follow up with both individual outpatient providers- both therapist and prescriber, though also observed to seek interest in seeking out new therapist with new rapport; encouraged by program staff to seek this out for additional support. Treatment Team Members Participating in Review: Gayathri Reynoso, [facility] Teresita Chun, [facility] Sari Fernandez [facility], SANJEEV Ely [facility] Tristian Talbot, MSN, LOG INSPECTOR, NEON INSTALLER, PMHNP-BC documented in this encounterAult[facility]04-25-2023 Miscellaneous Notes* Telephone Encounter - Aleta Mancini - 12/08/2022 2:43 PM EDT Patient needs follow up before scheduling. Left detailed voicemail message to schedule follow up * Telephone Encounter - Micki Mendoza Pss - 11/30/2022 12:30 PM EDT Patient last seen 01/22/2022. Will patient need to be scheduled in one of those triage slots to talk about getting an infusion? Or just a regular follow up? documented in this encounterA[facility]04-20-2023 History of Present illness Narrative* MCKINLEY Nunez - 12/03/2022 9:00 AM EDTSummary: DBT IOP Group *This service is provided virtually via [employer]. IOP (INTENSIVE OUTPATIENT PROGRAM) PROGRESS NOTE SERVICE DATE: 12/03/22 SERVICE TIME: 9AM-noon BEHAVIOR: Appearance: Casually groomed to mildly disheveled Attitude: Cooperative Affect: Blunted Mood: Observed with some anxiety; overall Pleasant Orientation: Oriented to person, place and time Thought: Logical, confused at times with technology and not having her there to help her Speech: Normal Eye Contact: Intermittent Describe Change Noted Throughout the Day: n/a- as noted above GROUP THERAPY: Process Therapy Start Time: 9:00 am Total Time: 50 minutes # of Patients: 9 THERAPEUTIC FOCUS: Check-In PROBLEM(S) ADDRESSED: -Mental health issues INTERVENTIONS: Review DBT skills practiced, mood symptoms, urge behaviors, self-injury / suicidal / violence behaviors that necessitate need for continued IOP therapy. Review of individualized goals to increase functioning to support discharge to more independent level of care. Reviewed patient-completed daily self-report to assess for concerns related to medications, SI, changes with sleep, appetite, energy level. RESPONSE: Appears attentive, engaged and participative. Pt reported she had not filled out the diary card, and was willing in group to fill out her card in session and worked on trying to join the chat. Pt. Shared she tried to figure out the group chat and was unable to send it in session. Pt. Spoke about going to the eye doctor yesterday and getting bad news which her was supportive withher about. Pt. Said after his support she is feeling better about the appointment today. Pt. Noted she has no safety issues yesterday. Patient Affirms Safety. Patient Data IOP Daily Questionnaire IOP Daily 12/01/2022 12/03/2022 Today, is your belief in your ability to use your Safety Plan in a crisis at 90%? Yes Yes Today, have you wished you were or wished you could go to sleep and not wake up? No No Today, have you actually had any thoughts of killing yourself? No No On a scale of 1 to 10 how would you rate your mood now? 2 5 Process Therapy Start Time: 10:00 am Total Time: 50 minutes # of Patients: 9 THERAPEUTIC FOCUS: Education and discussion around personal values PROBLEM(S) ADDRESSED: -Mental health issues INTERVENTIONS: Mindfulness practice implemented and processed. Discussion and education around personal values. Collaboratively explored these concepts as a group with general examples and in connection to members' individualized experiences. RESPONSE: Appears attentive and passive. Pt primarily actively listened throughout the psychoeducational dialogue on personal values, observed as attentive through non-verbals such as head-nodding, taking notes, etc. When prompted to look at a personal values she wants to work on for self, she ackno wledged social skills. Process Therapy Start Time: 11:00 am Total Time: 50 minutes # of Patients: 9 THERAPEUTIC FOCUS: Coping Skills PROBLEM(S) ADDRESSED: -Mental health issues INTERVENTIONS: Facilitated discussion regarding various group member concerns, with focus on current needs and interests and coping ahead for the weekend. Provided feedback, supportive, reflective listening and facilitated connections between group members as they explored current stressors/symptoms through the context of program information. Assessed safety prior to patients leaving for day. RESPONSE: Appears attentive; Pt observed to be following along with group discussion and other group members with no spontaneous engagement or sharing. Patient Affirms Safety. Patient reaffirmed Safety Plan and can stay safe from harm. PLAN: Continue IOP and current treatment plan. With plans to resume treatment on Wednesday12/07/22 after the weekend. Co-facilitated between: Samantha Ely [facility], and Sari Fernandez [facility], ATR documented in this encounterMark [place]ille [id number] Miscellaneous Notes* Telephone Encounter - Nelda Pichardo Ma - 12/02/2022 12:05 PM EDT Faxed approval to [phone]. Patient was notified Nelda Pichardo Ma * Telephone Encounter - Elba Albarado LPN - 12/02/2022 10:52 AM EDT Rec'd approval from [employer] from 12/02/2022 to 12/03/2023. It notes your authorization number is : [facility] [id number] MG * Telephone Encounter - Nelda Pichardo Ma - 11/26/2022 12:08 PM EDT Patient signed release form, faxed letter and bone scan to appeal department Nelda Pichardo Ma * Telephone Encounter - Eugene Sanchez MD - 11/25/2022 4:49 PM EDT Reviewed. * Telephone Encounter - Nellie Rm RN - 11/25/2022 4:32 PM EDT Pt called and is notified of message and instructions. Pt voices understanding. She will be in tomorrow morning to sign paper. I let her know she could call her insurance company and see if they would approve the medication if she had the injections done in office. Nellie Rm, RN * Telephone Encounter - Nelda Pichardo Ma - 11/25/2022 8:21 AM EDT Insurance in 2019 was [employer] so new insurance that does not cover this drug. Can submit 2nd appeal but [employer] requires patient to sign their release form from website and than fax appeal info. Left message for patient requesting call back to see when they can come in and sign. Did advise checked with insurance and in office prolia injection may be covered with our med supply Nelda Pichardo Ma * Telephone Encounter - Eugene Sanchez MD - 11/24/2022 6:19 PM EDT Per her TE 10/2019 she has been on Evista and Reclast in the past and failed treatment. PA previously approved with this information. * Telephone Encounter - Nelda Pichardo Ma - 11/24/2022 4:16 PM EDT Appeal denied because trial/failure or are unable to use injectable osteoporosis therapy such as: zoledronic acid or Tymlos. Or a one year trial of an bisphosphonate like alendronate, risedronate Please choose alternative and send Nelda Pichardo Ma * Telephone Encounter - Nelda Pichardo Ma - 11/24/2022 11:55 AM EDT Denied but completed appeal based on bone scan results 11/18/22 Nelda Pichardo Ma * Telephone Encounter - Nelda Pichardo Ma - 11/20/2022 12:47 PM EDT Prior Authorization has been completed online at [employer] for [employer], will await response. BUI- [id number] Please keep encounter open until final decision has been received and documented from insurance company. Nelda Pichardo MA documented in this encounterAultman [facility]04-19-2023 Miscellaneous Notes* Plan of Care - Sari Ayoubelpidio [facility] - 12/02/2022 9:00 AM EDTSummary: DBT IOP weekly summary Images from the original note were not included. WEEKLY TREATMENT TEAM PROGRESS NOTE INTENSIVE OUTPATIENT PROGRAM December 02, 2022 Safety Assessment: Suicide risk: Low: Modifiable risk factors and strong protective factors, desire to end pain. Notesthat she is safe and denies SI and also that she is tired of being in pain and that sleep is her only relief from the pain. Pt has completed safety plan from program to refer to if/as needed; this ischecked daily in check in groups. Pt. Has affirmed safety daily in groups and with her initial H&P appointment this week. Self-Injury risk: low, Pt denies urges daily and upon intake assessment and H&P. Pt is monitored daily through use of diary card, and daily check in groups. Weekly update on patient progress summarized: Pt attended 1/2 days of IOP at this time, missing a day due to prior commitment with plans to resume treatment tomorrow 12/03/22. She completed intake paperwork and appointments this week and receivedher master treatment plan this week as well as safety plan. Despite some challenged with technologyand logging into group and working her mute and camera, Pt. Was able to participate in sessions. When in group, was Pt on time for sessions daily? Yes Pt participated in diary card review and daily check in sessions this week: Yes Pt reports engaging in urges of: withdrawal most frequently this week, with skill usage identified as: acting opposite and having support from spouse. Pt participated in group therapy sessions this week: Yes, Pt began groups this week and getting acclimated to group sessions; as well as working to manage her engagement in group due to difficulty with sight which makes it difficult to coordinate technology at times, though open to support from thegroup; she is supportive and validating of other group members. She notes most stressors with her physical health which results in isolation and is working on behavioral changes and emotion regulation around her physical health. Pt participated in psycho-education sessions of opposite to emotion action of fear/ anxiety this week: with plans to review personal values tomorrow. Did Pt send in completed diary card to staff? No, as patient is new to program and was acclimated to check in and completion of diary card. Interval Progress: Maintaining Patient Data- will complete symptom updates in 2 weeks 12/08/22 Generalized Anxiety Disorder Scale (BHAVIK-7) BHAVIK - 7 SCORES 02/17/2022 10/21/2022 11/24/2022 BHAVIK-7 Score 21 18 20 (0-4) minimal anxiety, (5-9) mild anxiety, (10-14) moderate anxiety, (15-21) severe anxiety Mindful Attention Awareness Scale (LUIZ) Mindful Attention Awareness Scale (LUIZ) 11/24/2022 Mindful Attention Awareness Scale Score Incomplete Mindful Attention Awareness Scale Mean Score Incomplete Plan: Continue in IOP per Master Treatment Plan. Treatment Team Members Participating in Review: Gayathri Reynoso [facility] Teresita Chun [facility] Sari Fernandez [facility], SANJEEV Ely [facility] Tristian Talbot, MSN, LOG INSPECTOR, NEON INSTALLER, PMHNP-BC documented in this encounterAultman [facility]04-18-2023 History of Present illness Narrative* MCKINLEY Nunez - 12/01/2022 9:00 AM EDTSummary: DBT IOP Group *This service is provided virtually via [employer]. IOP (INTENSIVE OUTPATIENT PROGRAM) PROGRESS NOTE SERVICE DATE: 05/03/23 SERVICE TIME: 9AM-noon BEHAVIOR: Appearance: Casually groomed Attitude: Cooperative Affect: Flat Mood: Observed with some anxiety; overall pleasant Orientation: Oriented to person, place and time Thought:: Logical; supportive and validating of others. Speech: Normal Eye Contact: Intermittent Describe Change Noted Throughout the Day: n/a- as noted above GROUP THERAPY: Process Therapy Start Time: 9:00 am Total Time: 50 minutes # of Patients: 6 THERAPEUTIC FOCUS: Check-In PROBLEM(S) ADDRESSED: -Mental health issues INTERVENTIONS: Review DBT skills practiced, mood symptoms, urge behaviors, self-injury / suicidal / violence behaviors that necessitate need for continued IOP therapy. Review of individualized goals to increase functioning to support discharge to more independent level of care. Reviewed patient-completed daily self-report to assess for concerns related to medications, SI, changes with sleep, appetite, energy level. Reviewed patient's treatment plan/goals to assess for progress toward goals, goals to continue working on and additional treatment needs. RESPONSE: Appears attentive, engaged and participative. Pt reported understanding and relating to other group members in session. Pt. Said she felt comfortable filling out her diary card tonight on her own and trying her check in tomorrow. Patient Affirms Safety. Patient Data IOP Daily Questionnaire IOP Daily 12/01/2022 Today, is your belief in your ability to use your Safety Plan in a crisis at 90%? Yes Today, have you wished you were or wished you could go to sleep and not wake up? No Today, have you actually had any thoughts of killing yourself? No On a scale of 1 to 10 how would you rate your mood now? 2 Process Therapy Start Time: 10:00 am Total Time: 50 minutes # of Patients: 6 THERAPEUTIC FOCUS: Education and discussion on opposite to emotion action of fear/ anxiety. PROBLEM(S) ADDRESSED: -Mental health issues INTERVENTIONS: Mindfulness practice implemented and processed. Discussion and education around opposite to emotion action of fear/anxiety. Collaboratively explored these concepts as a group with general examples and in connection to members' individualized experiences. RESPONSE: Appears attentive and passive. Pt primarily actively listened throughout the psychoeducational dialogue on opposite to emotion action of fear/anxiety, observed as attentive through non-verbals such as head-nodding, taking notes, etc. Process Therapy Start Time: 11:00 am Total Time: 50 minutes # of Patients: 6 THERAPEUTIC FOCUS: Coping Skills PROBLEM(S) ADDRESSED: -Mental health issues INTERVENTIONS: Facilitated discussion regarding various group member concerns, with focus on current needs and interests. Provided feedback, supportive, reflective listening and facilitated connections between group members as they explored current stressors/symptoms through the context of program information. Assessed safety prior to patients leaving for day. RESPONSE: Appears attentive, engaged and participative. Pt. Spoke about being in pain and joining IOP. Pt. Noted it is part of what brought her here and she has been dealing with her pain for three years. Pt. Said her is a social butterfly which has been hard and was open to relating to others in group. Pt. Was open to connecting to others in session around pain. Patient Affirms Safety. Patient reaffirmed Safety Plan and can stay safe from harm. PLAN: Continue IOP and current treatment plan. Co-facilitated between: Samantha SEN-S, and Sari SEN-Raj, ATR documented [facility] Miscellaneous Notes* Plan of Care - MCKINLEY Vargas - 12/01/2022 9:00 AM EDTSummary: Master Treatment Plan for DBT IOP MASTER TREATMENT PLAN SERVICE DATE: 12.01.22 ADMISSION DATE: 12.02.22 SERVICE TIME: 0900 ASSESSMENT Diagnosis: PRIMARY: F41.1 Anxiety Disorder Generalized Anxiety Disorder SECONDARY: F32.A Mood Disorder Depressive Disorder NOS Insomnia Rule Out: PTSD/Unspecified Trauma and Stressor Related Disorder Summary: This is a 61 year old White female with a past history of major depressive disorder and generalized anxiety disorder who presents for admission to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 managing and adjusting her medications. Reports excellent relief with RIGHT genicular NB, 90% relief for about 2 weeks. She is an excellentcandidate for RFA of the RIGHT genicular. Emely Anthony Older would benefit from the following to decrease pain, improve function and/or work participation, and improve quality of life: Interventional Procedure(s): RFA RIGHT genicular with fluoro guidance The risks, benefits, alternative treatment options and prognosis of the procedure were discussed and all of the patient's questions/concerns were addressed to the patient's satisfaction. The patient expressed understanding and gave verbal consent to proceed. Medications: Refill: Continue Gabapentin, Flexeril as directed Depending on response to the above plan, consider: SPRINT PNS right LFCN or right Saphenous nerve (pre-patellar for knee) if RFA denied by new insurance. Interval History: The pain is unchanged when compared to the most recent visit. She has noticed increasingly bothersome pain radiating higher in the right side of the hip. It is located in the right thigh and knee. Elfego performed a genicular NBs in preparation for RFA, but her insurance previously denied this claim. The patient reports >75% relief of pain following the genicular NB. Given the denial of the RFA, the patient underwent a repeat genicular NB with steroid, which was able to provide >90% relief for around 2 weeks. The patient was able to improve her QoL and ability to ambulate. We have also performed 3 right LFCN blocks for the patient, which has provided 3 months of >75% relief initially but the most recent 2 was not able to provide any meaningful relief. This improved her ability to sleep and ambulate. This was the most meaningful pain relief that she has received thus far. Treatments to Date: rest, ice/heat, physical therapy, HEP, activity modifications, medications, acupuncture, surgery, injections CURRENT Pain Medications: Opioids: None NSAIDS: Etodolac 400mg BID PRN Anti-depressants: Effexor XR 75mg TID - for depression/anxiety Anti-convulsants: Gabapentin 300mg in am/pm and 600mg HS; Topamax 100mg qHS - for headaches Muscle relaxants: Flexeril 5mg TID prn Others: Custom Topical Anti-coaugulant use: No Pain Procedures: DATE PROCEDURE % OF IMPROVEMENT/DURATION 03/11/22 R Genic NB with steroids 90% 12/17/2021 R LFCN No relief 11/12/21 R Genicular NB 80%, 4 hours (positive diagnostic) 11/06/21 R LFCN No relief 05/2021 R LFCN >75%, 3 months INTAKE PAIN ASSESSMENT 04/16/2022 06/12/2022 Are you having pain associated with your visit today? Yes, Provider notified Yes, Provider notified Pain Scales Verbal (Numeric Rating or Visual Analog Scale) Verbal (Numeric Rating or Visual Analog Scale) Pain Level 4 4 Pain Location Knee-Right (No Data) Description Radiating;Aching;Sharp Burning;Stabbing;Sharp;Aching Duration Amount of Time 2 - Duration Units Years Years Frequency Continuous Continuous Intervention/Comfort measure Reposition;Relaxation;Positioning - Comments - nothing helps Pain Assessment - - Recent imaging: MRI Spine Report No resulted procedures found. Recent labs: BMP Latest Ref Rng & Units 01/14/2022 10/25/2021 10/07/2021 GLUCOSE 74 - 99 mg/dL 87 88 91 BUN 7 - 21 mg/dL 17 18 22(H) CREATININE 0.58 - 0.96 mg/dL 0.97(H) 0.98(H) 1.19(H) SODIUM 136 - 144 mmol/L 142 138 140 POTASSIUM 3.7 - 5.1 mmol/L 3.9 3.9 3.8 CHLORIDE 97 - 105 mmol/L 112(H) 108(H) 110(H) CO2 22 - 30 mmol/L 19(L) 20(L) 21(L) ANION GAP 9 - 18 mmol/L 11 10 9 CALCIUM, TOTAL 8.5 - 10.2 mg/dL 8.9 9.8 8.5 eGFR >=60 mL/min/1.73m 66 66 46 EGFR- - - - 56 EGFR-ALL OTHER RACES . - - 46 Hemoglobin (g/dL) Date Value 10/25/2021 12.0 08/15/2020 11.9 Hematocrit (%) Date Value 10/25/2021 37.5 08/15/2020 39.5 WBC (k/uL) Date Value 10/25/2021 6.65 08/15/2020 3.56 Platelet Count (k/uL) Date Value 10/25/2021 281 08/15/2020 279 CBC/BMP reviewed from 01/2022 - results unremarkable Recent EMG: None PDMP website checked and validated. All prescriptions have been APPROPRIATELY filled. No suspiciousactivity was identified. 06/12/2022 by Tu Swartz MD Allergies: ALLERGIES No Known Allergies Review of Systems: As noted above and per nursing documentation. Information pertaining to ROS obtained by others were confirmed and edited as necessary on 06/12/2022. Past Medical History, Past Surgical History, Family History, Social History: As noted above and per nursing documentation. Information pertaining to PMH/PSH/FH/SH obtained by others were confirmed and edited as necessary on 06/12/2022 by Tu Swartz MD. Physical Exam: 06/12/22 1324 Pulse: 82 Resp: 16 SpO2: 97% Pulse 82 Resp 16 SpO2 97% Constitutional: no acute distress HEENT: normocephalic, atraumatic, non-icteric sclera Cardiovascular: pulses present bilaterally Lymphatic: no visible regional lymphadenopathy Skin: no visible rashes or ecchymosis Psychiatric: full affect, alert, pleasant MSK: Knee: right crepitus and pain with motion. Restricted range of motion. Right pes anserine bursa TTP Impression & Plan: Emely Centeno is a 61 year old female with PMH significant for osteoporosis and epilepsy, who [facility] for a follow-up visit. The patient presents with chronic post-traumatic right lateral thigh and knee pain. The patient hashad two genicular NBs with >75% relief each time with improvement in function and ability to ambulate. Given the above, we will plan to perform a right genicular RFA. Furthermore, the patient has had >75% relief of her pain with right LFCN block, although the subsequent ones were not as effective. We will plan for an SPR of this nerve. It may be reasonable to consider a right EMG to identify the peripheral nerve to target. (M12.561) Traumatic arthritis of right knee (primary encounter diagnosis) (G57.11) Meralgia paresthetica of right side (M79.604, G89.29) Chronic pain of right lower extremity - refill Etodolac - refill compound cream Requested Prescriptions Signed Prescriptions Disp Refills etodolac (LODINE) 400 mg tablet 60 tablet 2 Sig: Take 1 tablet by mouth twice daily as needed. lidocaine (LIDODERM) 5 % 30 Patch 2 Sig: Apply 1 Patch as directed once daily. Remove patch after 12 hours. - precert submitted for right genicular nerve RFA - precert submitted for right LFCN SPR - consider RLE EMG - TENS unit - refer for PT - Follow Up: next available appointment for the ordered procedure(s) Tu Swartz MD [facility] Attribution: In addition to reviewing the information noted above, some elements copied from my most recent clinical note(s), including the physical examination as well as the impression and plan, have been updated where appropriate. All reflect current medical decision making from 06/12/2022 by Tu Swartz MD. * Zach Rees LPN - 06/12/2022 1:24 PM EDT Review of Systems Constitutional: Negative for activity change, chills, fever and unexpected weight change. Gastrointestinal: Negative for bowel retention or incontinence Genitourinary: Negative for difficulty urinating. Negative for bladder retention or incontinence Musculoskeletal: Positive for arthralgias, back pain and myalgias. Negative for gait problem, neck pain and neck stiffness. Neurological: Positive for headaches. Negative for weakness and numbness. Psychiatric/Behavioral: Positive for dysphoric mood and sleep disturbance. Negative for suicidal ideas. The patient is nervous/anxious. documented in this encounterAult[facility]10-25-[facility]22 History of Present illness Narrative* Katherine Dowd MD - 06/09/2022 9:41 AM EDT Tmax: unknown - low per pt; 13, 16 on latanoprost 02/2020 Pachy: 576, 573 Lasers and Surgeries: OD: 11/27/21 phaco-Xen (cat, VF prog, DH, IOP11 on3) 11/2015 SLT ([place]ast[place]) OS: 10/2015 SLT (Sebastian) Ocular Medication Intol and Non-efficacy: - Referred by Rena (from [facility]) Now on Latanoprost qhs OS Timolol OS qam (02/2020 IOP 13, 16 with VF prog OD) PFAT's frequently OD Severe Stage LTG -HVF 10/2021 OD dense sup > inf arcuate, new central depression worse, OS - -OCT 02/2020 OD small disc, mil/mod sup and inf thinning OS severe diffuse loss -blind OS - RVO, end-stage cupping -Mult DH OD 05/2022 @ 15mmHg (x2 DH) 01/2022 @ 7mmHg 09/2021 @ 11mmHg 03/2021 @ 11mmHg 10/2020 @ 10mmHg -OS: Severe and glaucoma, IOP typically low 11-13 -OD: 6 months post Xen. IOP too high, DH x2 today. Last VF seemed worse. Resume timolol OD 6-8 weeks IOP check Ecchymosis RUL -unclear etiology, no blood thinner or trauma or eye rubbing -will follow for now -offered referral but she declines at the moment Benign nevus OS (not addressed today) -stable BRVO OS 09/2016 ERM OS -follows with retina/Dr Ministerio Brown in [facility] The documentation for this note was completed by Sari Plummer acting as a scribe for Katherine Dowd MD. 06/09/2022 9:41 AM. I, Katherine Dowd MD, personally performed the services described in this documentation. All medical record entries made by the scribe were at my direction and in my presence. I have reviewed the chart and discharge instructions (if applicable) and agree that the record reflects my personal per formance and is accurate and complete. I have confirmed and edited as necessary the relevant ophthalmic history, ROS, and the neuro exam findings as obtained by others. I have seen and examined Emely Anthony Older. I have discussed the case and the management of this patient's care with the Resident/Fellow, if applicable. I also have reviewed and agree with the assessment and plan as stated above and agree with all of its relevant components. Electronically Signed: Katherine Dowd MD, June 09, 2022 9:57 AM * Katherine Dowd MD - 06/09/2022 9:40 AM EDT Tmax: unknown - low per pt; 13, 16 on latanoprost 02/2020 Pachy: 576, 573 Lasers and Surgeries: OD: 11/27/21 phaco-Xen (cat, VF prog, DH, IOP11 on3) 11/2015 SLT () OS: 10/2015 SLT () Ocular Medication Intol and Non-efficacy: - Referred by Rena (from [facility]) Now on Latanoprost qhs OS Timolol OS qam (02/2020 IOP 13, 16 with VF prog OD) PFAT's frequently OD Severe Stage LTG -HVF 10/2020 ([place]) OD dense sup > inf arcuate, new central depression, -[place] VF 02/2020 when timolol added (scanned 03/20/20) OS - -OCT 02/2020 OD small disc, mil/mod sup and inf thinning OS severe diffuse loss -blind OS - RVO, end-stage cupping -Mult DH OD 01/2022 @ 7mmHg 09/2021 @ 11mmHg 03/2021 @ 11mmHg 10/2020 @ 10mmHg -OS: Severe and glaucoma, IOP typically low -13 -OD: IOP remains well controlled, but HVF may show new central progression. There is recurrent DH OD 10/15/21. Now PO 10w 5d phaco-Xen OD -DFE POD#1 stable -now off Durezol, IOP is ideal and she is much more comfortable/improved keratopathy -given low IOP, will not modify therapy based on DH today -give MRx -she will see me in 2-3 months for DFE, then someone in Dr. Kelley's office in about 6 months from today Benign nevus OS (not addressed today) -stable BRVO OS 09/2016 ERM OS -follows with retina/[place] Ministerio [place] documented in this encounterAultman Hospital10-18-2022 Miscellaneous Notes* Telephone Encounter - Nahed Lord - 06/02/2022 8:12 AM EDT Spoke with patient and got her scheduled to be seen with Dr. Swartz. Nahed Lord * Telephone Encounter - Tu Swartz MD - 05/28/2022 2:35 PM EDT Please call patient to schedule an appt to discuss the topics in her [employer] message. documented in this encounterAultman Hospital10-17-2022 Miscellaneous Notes* Telephone Encounter - Sarah Bueno LPN - 06/01/2022 9:24 AM EDT Patient has been identified by name and date of : Yes Patient phones for refill(s): Requested Prescriptions Pending Prescriptions Disp Refills Syringe with Needle, Disp, 1 mL 25 gauge x 1 syrg 12 Each 0 Si Device once every month. For vitamin B12 injection. cyanocobalamin 1,000 mcg/mL 1 mL 5 Sig: Inject 1 mL intramuscularly once every month. Date of last office visit in primary care: 02/20/22 next apt 07/17/22 Last 2 Encounter Wt Readings: Date: Wt: 04/02/2022 61.2 kg (135 lb) 02/23/2022 61.2 kg (135 lb) Previous labs/tests for medication: Not applicable Thank you. Sarah Bueno LPN documented in this encounterAultman Hospital10-17-2022 Miscellaneous Notes* Telephone Encounter - Lauren Claire LPN - 06/01/2022 8:52 AM EDT Patient phones requesting refills as follows: Requested Prescriptions Pending Prescriptions Disp Refills levothyroxine (SYNTHROID) 50 mcg tablet 90 tablet 1 Sig: Take 1 tablet by mouth once daily. KAYLA 02/20/2022 NOV 07/17/2022 Please review and advise. Lauren Claire LPN documented in this encounterAultman Hospital09-01-2022 Instructions* Patient Instructions* Kae Diehl APRN.NEON INSTALLER - 04/16/2022 1:57 PM EDT Activity as tolerated Use Ice and/or heat as tolerated as needed documented in this encounterAultman Hospital09-01-2022 History of Present illness Narrative* Kae Diehl APRN.CNP - 04/16/2022 1:15 PM EDT Images from the original note were not included. [facility] Today's Date: 04/16/2022 Last Visit: 02/26/[address] Blackman Name: Emely Centeno : 1960 Purpose: Established Patient Encounter Interval History: Since last encounter, Emely Centeno; reports that the chronic problem(s) of RIGHt thigh pain s/p traumatic injury are Unchanged. Patient underwent RIGHT genicular NB on 03/11/22 with reports 90% relief for less then 2 weeks Pain Description: Timing: constant Character: Burning, aching, intermittently sharp Primary Location: RIGHT lateral hip and leg Radiation: None Exacerbating factors: standing, walking and activity, hills/slopes Relieving factors: medications and injections Interferes with: physical activity, walking and social activities The patient denies unintentional weight loss and fevers, chills, or night sweats. New Problems reported: Recall: Patient of Dr. Blackman Current Status: INTAKE PAIN ASSESSMENT 03/11/2022 04/16/2022 Are you having pain associated with your visit today? Yes, Provider notified Yes, Provider notified Pain Scales Verbal (Numeric Rating or Visual Analog Scale) Verbal (Numeric Rating or Visual Analog Scale) Pain Level 7 4 Pain Location Knee-Right Knee-Right Description Stabbing;Burning Radiating;Aching;Sharp Duration Amount of Time 2 2 Duration Units Years Years Frequency Continuous Continuous Intervention/Comfort measure - Reposition;Relaxation;Positioning Comments - - Pain Assessment - - Current Pain Medications: Opioids: None NSAIDS: Etodolac 400mg BID PRN Anti-depressants: Effexor XR 75mg TID - for depression/anxiety Anti-convulsants: Gabapentin 300mg in am/pm and 600mg HS; Topamax 100mg qHS - for headaches Muscle relaxants: Flexeril 5mg TID prn Others: Custom Topical Analgesia: adequate Allergies: ALLERGIES No Known Allergies Data Reviewed: Reviewed personally on today's date 04/16/2022 Relevant Imaging: MRI Spine Report No resulted procedures found. CT RIGHT knee/Femur 12/19/20: IMPRESSION: Healing distal femoral comminuted fracture with unchanged positioning of the middle distal interlocking screw into the posterior soft tissues, otherwise without hardware complication. RESULT: Redemonstration of a subacute comminuted distal femur fracture with a medullary ryan, 2 proximal interlocking and 3 distal interlocking screws. An additional screw is seen in the lateral femoral condyle. Additional radiolucent tracks are in keeping with previously removed hardware. The periosteal new bone formation has matured compared to prior examination in keeping with progressive healing, withearly bony bridging, although the fracture planes remain visible. The hardware appears intact without radiographic evidence of loosening. The hardware is unchanged from prior examination, with protrusion of the screw tip into the posterior medial soft tissue. The hardware is unchanged in position. No new fracture or dislocation. Tibiofemoral and patellofemoral joint spaces are unchanged. Subcutaneous fat stranding is seen in the anterior knee, mild. There is mild osteoarthritis of the hip withsuperior joint space narrowing and circumferential osteophytes in acetabulum. No full-thickness or retracted tendon tear noted. There is mild fatty atrophy of the lateral gluteus heriberto muscle fibers. There is partially visualized ossific densities posteriorly, seen only on the superiormost axial slices, nonspecific but may represent myositis ossificans. Distribution Engineer (topogram) images: No additional findings. No other significant abnormality is seen. Recent labs: Creatinine Date Value Ref Range Status 01/14/2022 0.97 (H) 0.58 - 0.96 mg/dL Final @lastegfr(gfr)@ Glucose, Point of Care Date Value Ref Range Status 03/11/2022 102 (A) 74 - 99 mg/dL Final Comment: Location:[facility], [address] [place] [address], [facility] The Accu-Chek Inform II glucose meter has not been approved for testing on patients receiving intensive medical intervention or therapy and results from this point of care glucose test should not be used for patient management decisions in these cases. Inaccurate results may also occur from other interfering factors, such as N-acetylcysteine (blood concentrations of greater than 5mg/dL), galactose, extremes of hematocrit (<10 or >65), or high doses of ascorbic acid (vitamin C) greater than 3mg/dL. Consider alternate testing mechanisms (e.g. core lab, blood gas instrument) in the above situations. Pain Procedures: DATE PROCEDURE IMPROVEMENT 03/11/22 RIGHT Genic NB with steroids 90% 12/17/2021 Right LFCN No relief 11/12/21 RIGHT Genicular NB 80% x 4 hours (positive diagnostic) 11/06/21 RIGHT LFCN No relief 05/2021 R LFCN >75%, 3 months Compliance: PDMP website checked and validated. All prescriptions have been APPROPRIATELY filled. No suspiciousactivity was identified. 04/16/2022 by Kae Diehl APRN.NEON INSTALLER Last Drug screen: Not Applicable Risk Assessment: BHAVIK-7: BHAVIK - 7 SCORES 01/10/2022 02/05/2022 02/17/2022 BHAVIK-7 Score 21 21 21 (0-4) minimal anxiety, (5-9) mild anxiety, (10-14) moderate anxiety, (15-21) severe anxiety PHQ-9: PHQ-9 01/20/2022 02/05/2022 02/11/2022 Score 10 12 10 (0-4) minimal depression, (5-9) mild depression, (10-14) moderate depression, (15-19) moderately severe depression, (20-27) severe depression Opioid Risk Tool: Family History of Substance Abuse: 0 - No Personal History of Substance Abuse: 0 - No Age between 16-45: 0 - No History of Pre-Adolescence Sexual Abuse: 0 - No Psychological Disease: Yes Depression: 1 - Yes Risk Total: 1 Total Score Risk Category: Low Risk 0-3 (0-3, low risk or no risk; 4-7, moderate risk, 8+, high risk) Current Medications, Past Medical History, Past Surgical History, Family History, Social History and Review of Systems: On today's date, 04/16/2022, noted above, I have confirmed and edited as necessary, the PFSH and ROS obtained by others. Physical Exam: 04/16/22 1309 Pulse: 85 Resp: 16 SpO2: 97% Constitutional: normal weight HEENT: Normal Cephalic, Atraumatic, Non-icteric sclera Eyes: Conjunctiva clear. No discharge from eyes Cardiovascular: Appears well perfused Lymphatic: No visible regional lymphadenopathy Skin: No visible rashes or ecchymosis Psychiatric: Full affect, Alert, Pleasant Lower Extremity MUSCULOSKELETAL/NEURO EXAM Inspection: larger later RIGHT thigh scar, no lesions, edema or erythema Gait: Antalgic on the RIGHT, ambulates unassisted Strength: LEFT RIGHT Iliopsoas (L2) 5 5 Quadriceps (L3) 5 5 Anterior Tibialis (L4): 5 5 Exten Hallucis Longus (L5) 5 5 Gastrocnemius (S1): 5 5 Sensation: - intact to light touch in the L2-S2 Bilateral lower limb dermatomes Reflexes: LEFT RIGHT Patellar (L4) Normal 2+ Normal 2+ Achilles (S1) Normal 2+ Normal 2+ Clonus Negative Negative Hip Range of Motion: - Decreased 25% with Concordant pain at end range internal rotation - Decreased 25% with Concordant pain at end range external rotation Right Knee(s): Inspection: - No edema, no effusion, erythema, warmth Palpation: - No tenderness to palpation of medial joint line - No tenderness to palpation of lateral joint line - no tenderness to palpation of the ligamentous insertions Range of Motion: Absent Crepitations - Extension: Normal (100%) Right - Flexion: Normal (100%) Right Diagnoses: (M12.561) Traumatic arthritis of right knee (primary encounter diagnosis) (G57.11) Meralgia paresthetica of right side (M79.604, G89.29) Chronic pain of right lower extremity (Z79.891) FDC (current) use of opiate analgesic Impression & Plan: 61 year old female with significant past medical history for HTN, HPL, PUD, DMII, TIA, anemia, migraine, Seizure disorder, glaucoma, osteoporosis, Panic Disorder, who presents with complaint(s) of chronic RIGHT leg pain s/p traumatic injury. Reports she has several seizures since her last evaluation. Neurology has been managing and adjusting her medications. Reports excellent relief with RIGHT genicular NB, 90% relief for about 2 weeks. She is an excellentcandidate for RFA of the RIGHT genicular. Emely Anthony Older would benefit from the following to decrease pain, improve function and/or work participation, and improve quality of life: Interventional Procedure(s): RFA RIGHT genicular with fluoro guidance The risks, benefits, alternative treatment options and prognosis of the procedure were discussed and all of the patient's questions/concerns were addressed to the patient's satisfaction. The patient expressed understanding and gave verbal consent to proceed. Medications: Refill: Requested Prescriptions No prescriptions requested or ordered in this encounter Continue Gabapentin, Flexeril as directed Functional Jainism: No changes-continue current regimen Additional Studies: None Referrals: None Additional: Medication use(s) and side effects reviewed with patient today with verbalized understanding. She was not in need of refills today Depending on response to the above plan, consider: SPRINT PNS right LFCN or right Saphenous nerve (pre-patellar for knee) if RFA denied by new insurance. Follow-up: 3 months for an office visit, for medication evaluation, optimization and refill as appropriate Attribution: In addition to reviewing the information noted above, some elements copied from my most recent clinical note(s), including the physical exam (completed in entirety today), and the impression and plan sections, have been updated where appropriate. All reflect current medical decision making from today's date. Kae Diehl APRN.NEON INSTALLER Pain Management [facility] * Denisse Weaver MA - 04/16/2022 1:08 PM EDT Review of Systems Constitutional: Negative for activity change, chills, fever and unexpected weight change. Gastrointestinal: Negative for bowel retention or incontinence Genitourinary: Negative for difficulty urinating. Negative for bladder retention or incontinence Musculoskeletal: Positive for arthralgias, gait problem, joint swelling and myalgias. Negative for back pain, neck pain and neck stiffness. Neurological: Negative for weakness, numbness and headaches. Psychiatric/Behavioral: Positive for dysphoric mood. Negative for sleep disturbance and suicidal ideas. The patient is nervous/anxious. documented in this encounterAult[facility]08-24-2022 Miscellaneous Notes* Telephone Encounter - Nelda Pichardo Ma - 04/08/2022 12:11 PM EDT PA is still N/A did call was advised Pharmacy coverage ended last month so Prolia PA can not be completed. Patient aware needs to call insurance an see if medically can get through office which nurse can do every 6 months with office supply. Aware if can would need to schedule nurse appointment, or will have to sign back up for pharmacy benefits Nelda Pichardo Ma * Telephone Encounter - Nelda Pichardo Ma - 03/31/2022 8:29 AM EDT Prior Authorization has been completed online at [employer] for Prolia, will await response. BUI- [id number] Please keep encounter open until final decision has been received and documented from insurance company. Nelda Pichardo MA documented in this encounterAultman Hospital08-19-2022 Miscellaneous Notes* Telephone Encounter - Kae Diehl APRN.CNP - 04/03/2022 3:45 PM EDT Please advise patient that attempted to call her multiple times yesterday for her appointment however the call would ring and no answer I was not able to leave a message. Please assist her in rescheduling a follow-up virtual visit. Thank you, Kae Diehl APRN.CNP documented in this encounterAultman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 compounding pharmacy: Apply 1-3 grams (pumps) to the affected area 3-4 times daily. May make substitutions as needed. cyclobenzaprine (FLEXERIL) 10 mg tablet Take 1 tablet by mouth three times daily as needed for muscle spasm. gabapentin (NEURONTIN) 600 mg tablet Take 1 pill 3 times per day LORazepam (ATIVAN) 0.5 mg Take 1 tablet by mouth twice daily as needed for up to 180 days. For up to 30 days hydrOXYzine pamoate (VISTARIL) 50 mg capsule Take 1 capsule by mouth three times daily as needed. zolpidem (AMBIEN) 10 mg Take 1 tablet by mouth daily at bedtime for 180 days. venlafaxine (EFFEXOR) 75 mg tablet Take 1 tablet by mouth three times daily with meals. amLODIPine (NORVASC) 5 mg tablet Take 1 tablet by mouth once daily. topiramate (TOPAMAX) 100 mg tablet Take 2 tablets by mouth daily at bedtime. levothyroxine (SYNTHROID) 50 mcg tablet Take 1 tablet by mouth once daily. atorvastatin (LIPITOR) 20 mg tablet Take 1 tablet by mouth daily at bedtime. For cholesterol. Syringe with Needle, Disp, 1 mL 25 gauge x 1 syrg 1 Device once every month. For vitamin B12 injection. cyanocobalamin 1,000 mcg/mL Inject 1 mL intramuscularly once every month. rizatriptan (MAXALT) 10 mg tablet Take 1 tablet by mouth as needed. FOR MIGRAINE HEADACHE (SEE ADMINISTRATION INSTRUCTIONS) NEOMYCIN 3.5 MG/G-POLYMYXIN B 10,000 UNIT/G-DEXAMETH 0.1 % EYE OINT Use 1 application in the left eye daily at bedtime. (Patient not taking: Reported on 02/10/2022 ) timolol maleate (TIMOPTIC) 0.5 % ophthalmic solution Use 1 Drop in the left eye every morning. latanoprost (XALATAN) 0.005 % ophthalmic solution Use 1 Drop in the left eye daily at bedtime. denosumab (PROLIA) 60 mg/mL Inject 1 mL subcutaneously once every [address] (PROTONIX) 40 mg tablet Take 1 tablet by mouth twice daily. metFORMIN (GLUCOPHAGE) 500 mg tablet Take 1 tablet by mouth daily with breakfast. clobetasol (TEMOVATE) 0.05 % ointment Apply 1 application to affected area as directed. PREMARIN vaginal cream Use 0.5 gram vaginally once each week, as directed. cholecalciferol (VITAMIN D-3) 2,000 unit tablet Take 2,000 Units by mouth once daily. folic acid/multivit-min/lutein (CENTRUM SILVER ORAL) Take by mouth. ASCORBIC ACID (VITAMIN C ORAL) Take 4,000 Units by mouth once daily. No current facility-administered medications for this visit. Medications and allergies reviewed by this provider. SOCIAL HISTORY Social History Tobacco Use Smoking status: Never Smoker Smokeless tobacco: Never Used Vaping Use Vaping Use: Never used Substance Use Topics Alcohol use: No Drug use: No REVIEW OF SYSTEMS All other reviewed and negative other than HPI. OBJECTIVE: BP 104/72 Pulse 82 Resp 16 Wt 63 kg (138 lb 12.8 oz) SpO2 98% BMI 23.46 kg/m . Vital signs reviewed by this provider. APPEARANCE Well appearing, alert, in no acute distress, well-hydrated, well nourished. LEFT WRIST/THUMB: Mild swelling over radial aspect of wrist. Ecchymosis with TTP over the radial aspect, base of thumb and proximal phalanx . FROM with some mild discomfort over radial aspect of wrist. 2+ radial pulse RIGHT HIP: No obvious deformity, erythema, or ecchymosis. TTP posterior to greater trochnater Some discomfort with internal rotation and abduction However she reports chronic pain with movement DIABETIC FOOT EXAM Never done INFLUENZA(1) due on 04/16/2022 COVID-19 VACCINE(5 - Booster for Moderna series) due on 05/16/2022 PNEUMOCOCCAL(3 - PPSV23 or PCV20) due on 06/17/2022 HBA1C due on 07/16/2022 DILATED RETINAL EXAM due on 10/15/2022 URINE ALBUMIN:CREATININE RATIO due on 12/04/2022 COLORECTAL CANCER SCREENING due on 12/19/2022 MAMMOGRAM due on 01/09/2023 LDL CHOLESTEROL due on 01/14/2023 DEPRESSION SCREENING due on 02/11/2023 ANNUAL PCP TEAM CHRONIC DISEASE VISIT due on 02/20/2023 BP CONTROLLED (<130/80) due on 02/20/2023 DTAP,TDAP,TD(2 - Td or Tdap) due on 06/29/2028 HEPATITIS C SCREENING Completed SHINGRIX VACCINE Completed PAP TESTING Discontinued HPV TESTING Discontinued HIV SCREENING Discontinued ASSESSMENT/PLAN: 1. Fall, initial encounter - ICD9: E888.9, ICD10: W19.XXXA (primary diagnosis) - plan as below 2. Right hip pain - ICD9: 719.45, ICD10: M25.551 - STAT Xray shows no acute radiographic abnormalities. Mild degenerative changes - XR HIP GENERAL 3V PELV/AP/LAT RIGHT - Recommend ice and OTC topical or pain relievers as indicated on packaging 3. Left wrist pain - ICD9: 719.43, ICD10: M25.532 - spoke with Dr. Medrano regarding xray findings suggestive of 1 st carpometacarpal joint subluxation/dislocation - placed in thumb spica splint as recommended and will facilitate appointment for Wednesday with ortho. Discussed splint care - XR WRIST GENERAL 3V PA/LAT/OBL LEFT - may use OTC pain relievers as instructed on packaging and ice - CONSULT TO ORTHOPAEDICS 4. Pain of left thumb - ICD9: 729.5, ICD10: M79.645 - plan as in #2 - XR DIGIT GENERAL 3V FRONTAL/LAT/OBL LEFT - CONSULT TO ORTHOPAEDICS Sybil Samaniego APRN.CNP Prescription instructions reviewed with patient as applicable. Patient advised if symptoms do not improve or if symptoms worsen sooner, to contact their primary care physician. Potential red flag symptoms discussed with the patient. Reviewed appropriate action plan to take if red flag symptoms occur. Patient agreeable to treatment plan. [facility] Miscellaneous Notes* Telephone Encounter - Sybil Samaniego APRN.CNP - 02/20/2022 10:47 AM EDT Reviewed. Sybil Samaniego APRN.CNP * Telephone Encounter - Roxy Johnson RN - 02/20/2022 9:20 AM EDT Patient calls to report a fall 2 days ago with right hip and left hand pain that developed after the fall. Patient requesting an appointment today. Nurse triage completed. Protocol recommends see provider within 2 weeks. Scheduled today per patient request. Care advice reviewed. Patient verbalizes understanding. Reason for Disposition [1] Falling (two or more falls) AND [2] in past year Answer Assessment - Initial Assessment Questions 1. MECHANISM: Patient outside walking on uneven surface and lost her balance falling to ground on right side. 2. DOMESTIC VIOLENCE AND ELDER ABUSE SCREENING: No 3. ONSET: 2 days ago 4. LOCATION: Right side on hip 5. INJURY: Patient reports at time of fall she didn't notice much pain but as time has went on she is having pain to right hip and left hand from thumb to wrist. Patient not sure if she landed on thehand. Patient reports hip pain is fine when ambulating but when sits feels like a sharp shooting pain rates it a 4/10. 6. PAIN: Pain to left hand 5/10 at rest and 7/10 with activity. Right hip pain 0/10 with ambulationand 4/10 with sitting. 7. SIZE: Patient just starting to notice bruising to left hand. 8. OTHER SYMPTOMS: No dizziness, fever, or weakness. 10. CAUSE: Patient reports that she has had several surgeries to legs and often she feels off balance and d/t being on uneven ground she just fell over. Protocols used: FALLS AND [id number] documented in this encounterA[facility] Miscellaneous Notes* Telephone Encounter - Erma Curry PA-C - 02/17/2022 4:08 PM EDT (see MC message) Would you mind giving this patient a call and explaining what you were telling me about self pay options she has for her Genicular RFA or transferring her to who will be handling this? As we discussed, her insurance will not pay for the genicular RFA so it either needs to be self pay or we wait till she has a new insurance before getting it. Erma Curry PA-C documented in this encounterA[facility]22 Instructions* Patient Instructions* Erma Curry PA-C - 02/13/2022 2:36 PM EDT [facility] What is it? Facet joint and sacroiliac joint denervation (also called rhizotomy, ablation, neurotomy or neurolysis) uses radiofrequency energy to temporarily interrupt or destroy the nerve that carries pain signals from the facet (zygapophyseal) joint or sacroiliac joint. The nerve branches from the facet joints are called the medial branches and the nerve branches from the sacroiliac joints are called the lateral branches. Each facet joint receives input from the two medial branches and each sacroiliac joint receives input from four lateral branches. Prior to performing a radiofrequency procedure, an injection of short-acting anesthetic (numbing medication) is injected to achieve short-term pain relief. If significant short-term pain relief is seen with the anesthetic, then a patient may be a candidate for the radiofrequency denervation procedure. Who should get radiofrequency denervation? The procedures are typically ordered for patients who have gotten significant short-term pain relief from facet joint medial branch injections and sacroiliac joint injections but have failed to get long-term improvement from these injections. How long does the injection take? Typically the radiofrequency ablation takes about one hour to perform, but expect to spend 15-20 minutes at our facility due to preparation time before the procedure and evaluation after the procedure. What are the risks of radiofrequency ablation? With all injections there is a risk of infection, bleeding, temporary increase in pain and injury to the structures along the course of the needle or injury to other nerve branches by the radiofrequency probe. By using sterile equipment and technique we minimize the Risk of infection. The risk of bleeding is minimized by discontinuation of blood thinners (this typically requires approval from theprescribing doctor) and non-steroidal anti-inflammatory medications (except Celebrex). By using X-ray guidance (fluoroscopy) we minimize the risk of injury to the structure along the course of the needle. The sensory and motor stimulation reduce the risk of injury to other nerves. Who should NOT have this injection? If you have an active infection, poorly controlled hypertension, diabetes, congestive heart failureor are unable to stop taking blood thinners, you may not be a candidate for these types of injections. documented in this encounter[facility] History of Present illness Narrative* Erma Curry PA-C - 02/13/2022 2:00 PM EDT VIRTUAL VISIT PROGRESS NOTE This is a virtual visit using Audio only. It required patient-provider interaction for the medical decision making as documented below. Chief Complaint/Reason: right leg pain Interval History: Since last encounter, Emely Centeno reports that the chronic problem(s) listedabove are Worse. Patient states that since her insurance will not pay for her Right genicular RFA she wants to pursue paying out of pocket for it. She states that after her genicular block her right knee felt incredible for 4 hours. Patient underwent R lateral femoral cutaneous nerve block on 12/17/[address] Blackman. Patient reports 0% relief from the injection. Patient denies any adverse side effects such as nausea, vomiting, hives, fever, injection site redness/induration, headache, or new radicular symptoms. Pain score: 4/10 New Problems reported: none States the current medication regimen is allowing for the completion of daily activities and increasing the overall quality of life. Denies any new or worsening side effects. Recall from 12/04/21: Since last encounter, Emely Anthony Older; PMH significant for HTN, HPL, PUD, DMII, TIA, anemia, migraine, Seizure disorder, glaucoma, osteoporosis, Panic Disorder; reports that thechronic problem(s) of RIGHT thigh pain related to a traumatic injury 2 years ago, this resulted in 3 surgeries) are Unchanged. Patient completed RIGHT LFCN on 11/06/21 with no relief. Patient completed RIGHT genicular NB on 11/12/21 with 80% relief for last about 4-5 hours. States during this time she was able to tolerate ambulated with less pain and discomfort. Typically she has so much pain she sleeps most of the day, after her knee injection she was able to tolerate staying awake and participate in her ADLS. She is pending repeat RIGHT LFCN with Dr. Blackman on . In August she was admitted for possible CVA, this was ruled out and then diagnosed with seizure disorder. She has not had any recent seizure activity. Denies new or worsening concerns today. Pain Description: ? Timing: constant ? Character: Burning, Numb and Tingling ? Primary Location: RIGHT lateral hip and leg ? Radiation: None ? Exacerbating factors: standing, walking and activity ? Relieving factors: medications and injections ? Interferes with: physical activity, walking and social activities ? The patient denies unintentional weight loss and fevers, chills, or night sweats. New Problems reported: None Current Pain Medications: ? Opioids: None ? NSAIDS: None ? Anti-depressants: Effexor ? Anti-convulsants: Gabapentin 300mg in am/pm and 600mg HS, Topamax ? Muscle relaxants: Flexeril 5mg TID prn ? Others: None Analgesia: adequate Current Anti-Coagulant Use: No PAST MEDICAL HISTORY Diagnosis Date MIGDALIA (acute kidney injury) ([facility]) Dr. 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 Lindsey for infusions Meralgia paresthetica Migraine neuro-Dr. Armenta's group Osteoporosis Prediabetes Primary open angle glaucoma (POAG) of both eyes, severe stage OU PUD (peptic ulcer disease) 01/04/2013 Pure hypercholesterolemia Retinal vein occlusion of left eye 05/2019 BRVO WITH MACULAR EDEMA OS Retinal vein thrombosis 2016 Dr. Romero-Christian Thyroid disease Traumatic brain injury ([facility]) 2 years ago and as a child, had concussions Unspecified hypothyroidism Unspecified intestinal obstruction Vitamin B12 deficiency Vitamin D deficiency PAST SURGICAL HISTORY Procedure Laterality Date CATARACT EXTRACTION W/ INTRAOCULAR LENS IMPLANT HX Right 11/27/2021 PCIOL/Xen Glaucoma Shunt OD COLONOSCOPY 2012 DIAGNOSIS/HISTORY 2005 LAPROSCOPIC ENTEROLYSIS DIAGNOSIS/HISTORY 2005 LAPROSCOPIC CHOLECYTECTOMY ESOPHAGOGASTRODUODENOSCOPY TRANSORAL DIAGNOSTIC 10/14/12 EGD H-pylori negative ESOPHAGOGASTRODUODENOSCOPY TRANSORAL DIAGNOSTIC 02/19/2016 EXC/DSTRJ LINGUAL TONSIL ANY METHOD SPX 1968 GASTRIC BYPASS 2004 LIG/TRNSXJ FLP TUBE ABDL/VAG APPR UNI/BI Tubal ligation PAST SURGICAL HISTORY OF 1991 Lumpectomy, right breast PAST SURGICAL HISTORY OF 2005 Bowel blockage PAST SURGICAL HISTORY OF 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 PAST SURGICAL HISTORY OF 04/15/2020 Fermur - right RHYTIDECTOMY NECK W/PLATYSMAL TIGHTENING 2007 Facelift TOTAL ABDOMINAL HYSTERECT W/WO RMVL TUBE OVARY 1991 Hysterectomy, CAT, oophorectomy FAMILY HISTORY Problem Relation Age of Onset Hypertension Mother Thyroid Mother Glaucoma Mother other (Diabetes) Mother Anxiety disorder Father Depression Father Heart Father arrythemia other (Dementia) Father Thyroid Sister Diabetes Sister Depression Brother other (Hypertension) Brother Cancer Maternal Grandfather Coronary Artery Disease Paternal Grandmother Cancer Paternal Grandmother lung cancer Coronary Artery Disease Paternal Grandfather other (Step Daughter) Daughter other (Step Son) Son other (Step Son) Son Detached Retina No Family History Macular Degen No Family History Blindness No Family History Social History Tobacco Use Smoking status: Never Smoker Smokeless tobacco: Never Used Vaping Use Vaping Use: Never used Substance Use Topics Alcohol use: No Drug use: No Current Outpatient Medications on File Prior to Visit Medication Sig LORazepam (ATIVAN) 0.5 mg Take 1 tablet by mouth twice daily as needed for up to 180 days. For up to 30 days hydrOXYzine pamoate (VISTARIL) 50 mg capsule Take 1 capsule by mouth three times daily as needed. zolpidem (AMBIEN) 10 mg Take 1 tablet by mouth daily at bedtime for 180 days. venlafaxine (EFFEXOR) 75 mg tablet Take 1 tablet by mouth three times daily with meals. amLODIPine (NORVASC) 5 mg tablet Take 1 tablet by mouth once daily. topiramate (TOPAMAX) 100 mg tablet Take 2 tablets by mouth daily at bedtime. levothyroxine (SYNTHROID) 50 mcg tablet Take 1 tablet by mouth once daily. atorvastatin (LIPITOR) 20 mg tablet Take 1 tablet by mouth daily at bedtime. For cholesterol. cyclobenzaprine (FLEXERIL) 5 mg tablet Take 1 tablet by mouth three times daily as needed for muscle spasm. Syringe with Needle, Disp, 1 mL 25 gauge x 1 syrg 1 Device once every month. For vitamin B12 injection. cyanocobalamin 1,000 mcg/mL Inject 1 mL intramuscularly once every month. rizatriptan (MAXALT) 10 mg tablet Take 1 tablet by mouth as needed. FOR MIGRAINE HEADACHE (SEE ADMINISTRATION INSTRUCTIONS) NEOMYCIN 3.5 MG/G-POLYMYXIN B 10,000 UNIT/G-DEXAMETH 0.1 % EYE OINT Use 1 application in the left eye daily at bedtime. (Patient not taking: Reported on 02/10/2022 ) timolol maleate (TIMOPTIC) 0.5 % ophthalmic solution Use 1 Drop in the left eye every morning. latanoprost (XALATAN) 0.005 % ophthalmic solution Use 1 Drop in the left eye daily at bedtime. gabapentin (NEURONTIN) 300 mg capsule Take 1 tab (300 mg) in the AM, take 1 tab (300 mg) in the afternoon, and take 2 tabs (600 mg) at bedtime denosumab (PROLIA) 60 mg/mL Inject 1 mL subcutaneously once every [address] (PROTONIX) 40 mg tablet Take 1 tablet by mouth twice daily. metFORMIN (GLUCOPHAGE) 500 mg tablet Take 1 tablet by mouth daily with breakfast. clobetasol (TEMOVATE) 0.05 % ointment Apply 1 application to affected area as directed. PREMARIN vaginal cream Use 0.5 gram vaginally once each week, as directed. cholecalciferol (VITAMIN D-3) 2,000 unit tablet Take 2,000 Units by mouth once daily. folic acid/multivit-min/lutein (CENTRUM SILVER ORAL) Take by mouth. ASCORBIC ACID (VITAMIN C ORAL) Take 4,000 Units by mouth once daily. No current facility-administered medications on file prior to visit. ALLERGIES No Known Allergies CT RIGHT knee/Femur 12/19/20: IMPRESSION: Healing distal femoral comminuted fracture with unchanged positioning of the middle distal interlocking screw into the posterior soft tissues, otherwise without hardware complication. RESULT: Redemonstration of a subacute comminuted distal femur fracture with a medullary ryan, 2 proximal interlocking and 3 distal interlocking screws. An additional screw is seen in the lateral femoral condyle. Additional radiolucent tracks are in keeping with previously removed hardware. The periosteal new bone formation has matured compared to prior examination in keeping with progressive healing, with early bony bridging, although the fracture planes remain visible. The hardware appears intact without radiographic evidence of loosening. The hardware is unchanged from prior examination, with protrusion of the screw tip into the posterior medial soft tissue. The hardware is unchanged in position. No new fracture or dislocation. Tibiofemoral and patellofemoral joint spaces are unchanged. Subcutaneous fat stranding is seen in the anterior knee, mild. There is mild osteoarthritis of the hip with superior joint space narrowing and circumferential osteophytes in acetabulum. No full-thickness or retracted tendon tear noted. There is mild fatty atrophy of the lateral gluteus heriberto muscle fibers. There is partially visualized ossific densities posteriorly, seen only on the superiormost axial slices, nonspecific but may represent myositis ossificans. Distribution Engineer (topogram) images: No additional findings. No other significant abnormality is seen. Electrodiagnostic Study (EMG): None Pain Procedures: DATE PROCEDURE IMPROVEMENT 12/17/21 RIGHT LFC NB 0% 11/12/21 RIGHT Genicular NB 80% 11/06/21 RIGHT LFCN No relief 05/2021 R LFCN >75%, 3 months Review of Systems: Reviewed on today's date. Pertinent Positives: MSK - pain in the region being treated Neuro: No weakness or numbness in the region being treated Skin: Negative (No itching) Eyes: Negative (No blurred or double vision) Respiratory: Negative (No Cough, [id number], Dyspnea on exertion, wheezing) Cardiovascular: Negative (No Chest Pain, Tightness, Pressure, Palpitations) Gastrointestinal: Negative (No Abdominal pain, Nausea, Vomiting, Constipation, Diarrhea) Genitourinary: Negative (No dysuria) Hematologic: Negative (No bleeding, bruising) Endocrine: Negative (No hot/cold intolerance) Psychiatric: Negative (No depression, anxiety or suicidal ideation) PDMP website checked and validated. All prescriptions have been APPROPRIATELY filled. No suspiciousactivity was identified. 02/13/2022 by Erma Curry PA-C REVIEWED IMAGING: None new ASSESSMENT: No diagnosis found. PLAN: Taper gabapentin up to TID Increase flexeril to 10mg TID Add Performix topical cream Interventional Procedure(s): Right Genicular RFA under fluro guidance The risks, benefits, alternative treatment options and prognosis of the procedure were discussed and all of the patient's questions/concerns were addressed to the patient's satisfaction. The patient expressed understanding and gave verbal consent to proceed. There are no Patient Instructions on file for this visit. Erma Curry PA-C ([place]) Pain Management [facility] documented in this encounterAultman Hospital06-28-[facility]22 History of Present illness Narrative* Katherine Dowd MD - 02/10/2022 2:55 PM EDT Tmax: unknown - low per pt; 13, 16 on latanoprost 02/2020 Pachy: 576, 573 Lasers and Surgeries: OD: 11/27/21 phaco-Xen (cat, VF prog, DH, IOP11 on3) 11/2015 SLT ([place]) OS: 10/2015 SLT ([place]) Ocular Medication Intol and Non-efficacy: - Referred by Rena (from [place]) Now on Latanoprost qhs OS Timolol OS qam (02/2020 IOP 13, 16 with VF prog OD) PFAT's frequently OD Severe Stage LTG -HVF 10/2020 ([place]) OD dense sup > inf arcuate, new central depression, -[place] VF 02/2020 when timolol added (scanned 03/20/20) OS - -OCT 02/2020 OD small disc, mil/mod sup and inf thinning OS severe diffuse loss -blind OS - RVO, end-stage cupping -Mult DH OD 01/2022 @ 7mmHg 09/2021 @ 11mmHg 03/2021 @ 11mmHg 10/2020 @ 10mmHg -OS: Severe and glaucoma, IOP typically low - -OD: IOP remains well controlled, but HVF may show new central progression. There is recurrent DH OD 10/15/21. Now PO 10w 5d phaco-Xen OD -DFE POD#1 stable -now off Durezol, IOP is ideal and she is much more comfortable/improved keratopathy -given low IOP, will not modify therapy based on DH today -give MRx -she will see me in 2-3 months for DFE, then someone in Dr. Kelley's office in about 6 months from today Benign nevus OS (not addressed today) -stable BRVO OS 09/2016 ERM OS -follows with retina/Dr Ministerio Brown in [place] I, Katherine Dowd MD, have edited as necessary and confirmed the relevant ophthalmic history, ROS, and neuro exam findings as obtained by others. I have seen and examined Emely Centeno. I also have reviewed, edited as necessary, and agree with the assessment and plan and all of its relevant components as stated above. I have discussed the case and the management of this patient's care with the Resident/Fellow, if applicable. February 10, 2022 3:02 PM. documented in this encounterAultman Hospital06-16-2022 Miscellaneous Notes* Telephone Encounter - Nereida Muniz [facility] [place] - 01/29/2022 8:45 AM EDT Hi I just wanted to let you know I m gonna be out of the eyedrop for the right eye tomorrow. So do you need to call in another prescription or are we. So close it s not worth it just let me know thanks Difluprednate (pink) 2x daily for 2 weeks 1x daily for 2 weeks Then stop Katherine Dowd MD filed at 01/06/2022 1:17 PM Status: Addendum Tmax: unknown - low per pt; 13, 16 on latanoprost 02/2020 Pachy: 576, 573 Lasers and Surgeries: OD: 11/27/21 phaco-Xen (cat, VF prog, DH, IOP11 on3) 11/2015 SLT ([place]) OS: 10/2015 SLT ([place]) Ocular Medication Intol and Non-efficacy: - Referred by Rena (from [facility]) Now on Durezol tid OD Latanoprost qhs OS Timolol OS qam (02/2020 IOP 13, 16 with VF prog OD) ) Takes amlodipine qAM Severe Stage LTG -HVF 10/2020 ([place]) OD dense sup > inf arcuate, new central depression, -[place] VF 02/2020 when timolol added (scanned 03/20/20) OS - -OCT 02/2020 OD small disc, mil/mod sup and inf thinning OS severe diffuse loss -blind OS - RVO, end-stage cupping -Mult DH OD 09/2021 @ 11mmHg 03/2021 @ 11mmHg 10/2020 @ 10mmHg -OS: Severe and glaucoma, IOP typically low 11-13 -OD: IOP remains well controlled, but HVF may show new central progression. There is recurrent DH OD 10/15/21. Now PO 5w 5d phaco-Xen OD -DFE POD#1 stable -IOP is not ideal at 12. -She still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 she has no relief by that time, then we can discuss further at her appointment on 01/08, or she can attempt to make an earlier appointment with myself or Dr. Swartz. Ashley Blackman III, MD, ALVERTO * Telephone Encounter - Rubi Eden - 12/18/2021 11:52 AM EDT Patient has left a voicemail stating that she is still in pain. I returned her phone call to find out what is going on. Patient states that she spoke with a Mily and she told him about her pain and he said that she needed to call the doctor so that's what she did. She also stated that she doesn't believe that her medications are working either. Please advise Rubi Eden documented in this encounterA[facility]05-02-2022 Instructions* Patient Instructions* Sendy Medina Ma - 12/15/2021 9:09 AM EDT BONE MINERAL DENSITY PATIENT INSTRUCTIONS Bone mineral density testing measures the amount of calcium in certain parts of your bones. This information determines how strong your bones are. The test is used to detect osteoporosis, a disease in which the bone's mineral content and density are low, increasing a person's risk of fractures. Thelumbar spine (lower back) and the hip are the skeletal sites usually examined. For the test, remember that: 1. You cannot take this test if you are . 2. Eat a normal diet on the day of the test. 3. Take your medications as you normally would. 4. DO NOT take calcium supplements (such as Tums) for 24 hours before the test. 5. On the day of the test, leave valuables (jewelry or credit cards) at home. 6. The test should be performed prior to oral, rectal or IV contrast studies, or at least 7 days after any of these studies. For the test, you may be asked to wear a hospital gown. You will lie on your back, on a padded table, in a comfortable position. Generally, you can resume your usual activities immediately. documented in this encounterA[facility]05-02-2022 Miscellaneous Notes* Telephone Encounter - Sendy Medina Ma - 12/15/2021 9:07 AM EDT Pt last bone density was 07/19/[address] Barajas, but appears you have been doing the Prolia refills. Sendy Medina Ma documented in this encounterA[facility]04-28-2022 Miscellaneous Notes* Telephone Encounter - Sarah Bueno LPN - 12/11/2021 8:14 AM EDT Patient has been identified by name and date of : Yes Patient phones for refill(s): Pending Prescriptions Disp Refills LEVOTHYROXINE 50 MCG TABLET 90 tablet 1 Sig: Take 1 tablet by mouth once daily. DAVE: No ATORVASTATIN 20 MG TABLET 90 tablet 0 Sig: Take 1 tablet by mouth daily at bedtime. For cholesterol. DAVE: No Date of last office visit in primary care: 08/28/21 next apt 01/14/22 Last 2 Encounter Wt Readings: Date: Wt: 11/17/2021 60.5 kg (133 lb 4.8 oz) 11/04/2021 59 kg (130 lb) Previous labs/tests for medication: Thyroid: TSH Date Value 10/25/2021 1.380 mIU/L 11/26/2020 0.563 uU/mL Cholesterol: HDL Cholesterol (mg/dL) Date Value 11/26/2020 64 LDL Cholesterol (mg/dL) Date Value 11/26/2020 121 ALT (U/L) Date Value 10/25/2021 44 10/07/2021 21 Non HDL Cholesterol, Nonfasting (mg/dL) Date Value 01/26/2020 98 Non HDL Cholesterol (mg/dL) Date Value 11/26/2020 145 Please advise. Thank you. Sarah Bueno LPN documented in this encounterAult[facility] Hospital04-21-2022 Instructions* Patient Instructions* Kae Diehl APRN.CNP - 12/04/2021 8:48 AM EDT Activity as tolerated Use Ice and/or heat as tolerated as needed documented in this encounterAultman Hospital04-21-2022 History of Present illness Narrative* Kae Diehl APRN.CNP - 12/04/2021 8:30 AM EDT Images from the original note were not included. [facility] Today's Date: 12/04/2021 Last Visit: 10/10/[address] Swartz Name: Emely Centeno : 1960 Purpose: Established Patient Encounter Interval History: Since last encounter, Emely Anthony Taryn; PMH significant for HTN, HPL, PUD, DMII, TIA, anemia, migraine, Seizure disorder, glaucoma, osteoporosis, Panic Disorder; reports that the chronic problem(s) of RIGHT thigh pain related to a traumatic injury 2 years ago, this resulted in 3 surgeries) are Unchanged. Patient completed RIGHT LFCN on 11/06/21 with no relief. Patient completed RIGHT genicular NB on 11/12/21 with 80% relief for last about 4-5 hours. States during this time she was able to tolerate ambulated with less pain and discomfort. Typically she has so much pain she sleeps most of the day, after her knee injection she was able to tolerate staying awake and participate in her ADLS. She is pending repeat RIGHT LFCN with Dr. Blackman on . In August she was admitted for possible CVA, this was ruled out and then diagnosed with seizure disorder. She has not had any recent seizure activity. Denies new or worsening concerns today. Pain Description: o Timing: constant o Character: Burning, Numb and Tingling o Primary Location: RIGHT lateral hip and leg o Radiation: None o Exacerbating factors: standing, walking and activity o Relieving factors: medications and injections o Interferes with: physical activity, walking and social activities o The patient denies unintentional weight loss and fevers, chills, or night sweats. New Problems reported: None Recall: Patient of RajAdelaida Joananette HARISH Current Status: INTAKE PAIN ASSESSMENT 11/27/2021 12/04/2021 Are you having pain associated with your visit today? 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 CT RIGHT knee/Femur 12/19/20: IMPRESSION: Healing distal femoral comminuted fracture with unchanged positioning of the middle distal interlocking screw into the posterior soft tissues, otherwise without hardware complication. RESULT: Redemonstration of a subacute comminuted distal femur fracture with a medullary ryan, 2 proximal interlocking and 3 distal interlocking screws. An additional screw is seen in the lateral femoral condyle. Additional radiolucent tracks are in keeping with previously removed hardware. The periosteal new bone formation has matured compared to prior examination in keeping with progressive healing, with early bony bridging, although the fracture planes remain visible. The hardware appears intact without radiographic evidence of loosening. The hardware is unchanged from prior examination, with protrusion of the screw tip into the posterior medial soft tissue. The hardware is unchanged in position. No new fracture or dislocation. Tibiofemoral and patellofemoral joint spaces are unchanged. Subcutaneous fat stranding is seen in the anterior knee, mild. There is mild osteoarthritis of the hip with superior joint space narrowing and circumferential osteophytes in acetabulum. No full-thickness or retracted tendon tear noted. There is mild fatty atrophy of the lateral gluteus heriberto muscle fibers. There is partially visualized ossific densities posteriorly, seen only on the superiormost axial slices, nonspecific but may represent myositis ossificans. Distribution Engineer (topogram) images: No additional findings. No other significant abnormality is seen. Electrodiagnostic Study (EMG): None Recent labs: Creatinine Date Value Ref Range Status 10/25/2021 0.98 (H) 0.58 - 0.96 mg/dL Final @lastegfr(gfr)@ Glucose, Point of Care Date Value Ref Range Status 11/27/2021 96 74 - 99 mg/dL Final Comment: Location:[facility], [address] [place] [address], [facility] The Accu-Chek Inform II glucose meter has not been approved for testing on patients receiving intensive medical intervention or therapy and results from this point of care glucose test should not be used for patient management decisions in these cases. Inaccurate results may also occur from other interfering factors, such as N-acetylcysteine (blood concentrations of greater than 5mg/dL), galactose, extremes of hematocrit (<10 or >65), or high doses of ascorbic acid (vitamin C) greater than 3mg/dL. Consider alternate testing mechanisms (e.g. core lab, blood gas instrument) in the above situations. Pain Procedures: DATE PROCEDURE IMPROVEMENT 11/12/21 RIGHT Genicular NB 80% 11/06/21 RIGHT LFCN No relief 05/2021 R LFCN >75%, 3 months Compliance: PDMP website checked and validated. All prescriptions have been APPROPRIATELY filled. No suspiciousactivity was identified. 12/04/2021 by Kae Diehl APRN.NEON INSTALLER Last Drug screen: Not Applicable Risk Assessment: BHAVIK-7: BHAVIK - 7 SCORES 10/04/2021 11/17/2021 11/17/2021 BHAVIK-7 Score 21 17 17 (0-4) minimal anxiety, (5-9) mild anxiety, (10-14) moderate anxiety, (15-21) severe anxiety PHQ-9: PHQ-9 10/04/2021 11/17/2021 11/17/2021 Score 9 15 15 (0-4) minimal depression, (5-9) mild depression, (10-14) moderate depression, (15-19) moderately severe depression, (20-27) severe depression ORT updated 02/2021 Current Medications, Past Medical History, Past Surgical History, Family History, Social History and Review of Systems: On today's date, 12/04/2021, noted above, I have confirmed and edited as necessary, the PFSH and ROS obtained by others. Physical Exam: 12/04/21 0826 Pulse: 90 Resp: 16 SpO2: 99% Constitutional: normal weight HEENT: Normal Cephalic, Atraumatic, Non-icteric sclera Eyes: Conjunctiva clear. No discharge from eyes Cardiovascular: Appears well perfused Lymphatic: No visible regional lymphadenopathy Skin: No visible rashes or ecchymosis Psychiatric: Full affect, Alert, Pleasant Lower Extremity MUSCULOSKELETAL/NEURO EXAM Inspection: larger later RIGHT thigh scar, no lesions, edema or erythema Gait: Antalgic on the RIGHT, ambulates unassisted Strength: LEFT RIGHT Iliopsoas (L2) 5 5 Quadriceps (L3) 5 5 Anterior Tibialis (L4): 5 5 Exten Hallucis Longus (L5) 5 5 Gastrocnemius (S1): 5 5 Sensation: - intact to light touch in the L2-S2 Bilateral lower limb dermatomes Reflexes: LEFT RIGHT Patellar (L4) Normal 2+ Normal 2+ Achilles (S1) Normal 2+ Normal 2+ Clonus Negative Negative Hip Range of Motion: - Decreased 25% with Concordant pain at end range internal rotation - Decreased 25% with Concordant pain at end range external rotation Right Knee(s): Inspection: - No edema, no effusion, erythema, warmth Palpation: - No tenderness to palpation of medial joint line - No tenderness to palpation of lateral joint line - no tenderness to palpation of the ligamentous insertions Range of Motion: Absent Crepitations - Extension: Normal (100%) Right - Flexion: Normal (100%) Right Diagnoses: (M79.604, G89.29) Chronic pain of right lower extremity (primary encounter diagnosis) (G57.11) Meralgia paresthetica of right side (G89.28) Chronic post-operative pain (Z79.891) 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 She has had 3 previous surgeries on her RIGHT femur. She reports >80% relief from the RIGHT Genicular NB for about 4 hours. During this time she had meaningful pain relief that allowed her to be mobile and active and participate in her ADL's. She was very pleased with her response. She unfortunately did not have much relief with her repeat RIGHT LFCN block, previous LFCNB in provided her >75% relief for 3 months. She is hopeful that her upcoming repeat injection will give her excellent relief again. Emely Centeno would benefit from the following to decrease pain, improve function and/or work participation, and improve quality of life: Interventional Procedure(s): RFA RIGHT Genicular under fluoro guidance The risks, benefits, alternative treatment options and prognosis of the procedure were discussed and all of the patient's questions/concerns were addressed to the patient's satisfaction. The patient expressed understanding and gave verbal consent to proceed. Medications: Refill: Signed Prescriptions Disp Refills cyclobenzaprine (FLEXERIL) 5 mg tablet 90 tablet 2 Sig: Take 1 tablet by mouth three times daily as needed for muscle spasm. DAVE: No Continue Gabapentin (PCP), Topamax (Neuro) and Effexor as directed for added pain relief Functional Jainism: No changes-continue current regimen Additional Studies: None Referrals: None Additional: Proceed with upcoming repeat RIGHT LFC Nerve Block as scheduled with Dr. Blackman. She had excellent and meaningful relief after RIGHT genicular NB, plan to proceed with RIGHT genicular RFA. Medication use(s) and side effects reviewed with patient today with verbalized understanding. Depending on response to the above plan, consider: Follow-up: after injection for an office visit, for evaluation of response to treatment plan and optimization Attribution: In addition to reviewing the information noted above, some elements copied from my most recent clinical note(s), including the physical exam (completed in entirety today), and the impression and plan sections, have been updated where appropriate. All reflect current medical decision making from today's date. Kae Diehl APRN.NEON INSTALLER Pain Management [facility] * Maura Conley MA - 12/04/2021 8:25 AM EDT Review of Systems Constitutional: Negative for activity change, chills, fever and unexpected weight change. Gastrointestinal: Negative for bowel retention or incontinence Genitourinary: Negative for difficulty urinating. Negative for bladder retention or incontinence Musculoskeletal: Positive for arthralgias, back pain, gait problem and myalgias. Negative for jointswelling, neck pain and neck stiffness. Neurological: Positive for weakness and headaches. Negative for numbness. Psychiatric/Behavioral: Positive for dysphoric mood and sleep disturbance. Negative for suicidal ideas. The patient is nervous/anxious. documented in this encounterA[facility]04-20-2022 History of Present illness Narrative* Katherine Dowd MD - 12/03/2021 12:51 PM EDT Tmax: unknown - low per pt; 13, 16 on latanoprost 02/2020 Pachy: 576, 573 Lasers and Surgeries: OD: 11/27/21 phaco-Xen (cat, VF prog, DH, IOP11 on3) 11/2015 SLT ([facility]astian) OS: 10/2015 SLT ([place]) Ocular Medication Intol and Non-efficacy: - Referred by Rena (from [facility]) Now on Durezol + oflox qid OD Latanoprost qhs OS Timolol OS qam (02/2020 IOP 13, 16 with VF prog OD) ) Takes amlodipine qAM Severe Stage LTG -HVF 10/2020 ([facility]) OD dense sup > inf arcuate, new central depression, -[facility]ian VF 02/2020 when timolol added (scanned 03/20/20) OS - -OCT 02/2020 OD small disc, mil/mod sup and inf thinning OS severe diffuse loss -blind OS - RVO, end-stage cupping -Mult DH OD 09/2021 @ 11mmHg 03/2021 @ 11mmHg 10/2020 @ 10mmHg -OS: Severe and glaucoma, IOP typically low 11-13 -OD: IOP remains well controlled, but HVF may show new central progression. There is recurrent DH OD 10/15/21. Now POW#1 phaco-Xen OD -DFE POD#1 stable -IOP remains nice an low -stop Oflox on POD#7 -cont Durezol Benign nevus OS -stable BRVO OS 09/2016 ERM OS -follows with retina/Dr Ministerio Brown in [facility] The documentation for this note was completed by Reuben Fontenot acting as a scribe for Dr. Katherine Dowd 12/03/2021 12:51 PM I, Katherine Dowd MD, personally performed the services described in this documentation. All medical record entries made by the scribe were at my direction and in my presence. I have reviewed the chart and discharge instructions (if applicable) and agree that the record reflects my personal per formance and is accurate and complete. I have confirmed and edited as necessary the relevant ophthalmic history, ROS, and the neuro exam findings as obtained by others. I have seen and examined Emely Anthony Older. I have discussed the case and the management of this patient's care with the Resident/Fellow, if applicable. I also have reviewed and agree with the assessment and plan as stated above and agree with all of its relevant components. Electronically Signed: Katherine Dowd MD, December 03, 2021 1:04 PM documented in this encounterAult[facility]04-18-2022 Miscellaneous Notes* Telephone Encounter - Katie Dumont Ma - 12/01/2021 12:58 PM EDT Pending Prescriptions Disp Refills SYRINGE WITH NEEDLE 1 ML 25 GAUGE X 1 12 Each 0 Si Device once every month. For vitamin B12 injection. DAVE: No CYANOCOBALAMIN (VIT B-12) 1,000 MCG/ML INJECTION SOLUTION 1 mL 5 Sig: Inject 1 mL intramuscularly once every month. DAVE: No RIZATRIPTAN 10 MG TABLET 27 tablet 2 Sig: Take 1 tablet by mouth as needed. FOR MIGRAINE HEADACHE (SEE ADMINISTRATION INSTRUCTIONS) DAVE: No KAYLA 08/28/21 NOV 01/14/22 Katie Dumont Ma documented in this encounterAultman Hospital04-06-2022 History of Present illness Narrative* Pattie Coley LPN - 11/19/2021 1:58 PM EDT x * Zina Wise APRN.HARISH - 11/19/2021 1:47 PM EDT Images from the original note were not included. PSYC FOLLOW UP - PSYCHIATRIC PROGRESS NOTE DIAGNOSIS: 1. Panic disorder with agoraphobia 2. Primary insomnia 3. Major depressive disorder, recurrent, moderate GAF: -50-41 Serious symptoms or any serious impairment in social, occupational or school functioning. TREATMENT PLAN: 1. Increase the monthly amount of Ativan temporarily to help the patient deal with anxiety related to her health. 2. Continue Abilify, Effexor, Ambien, and hydroxyzine at the same dose. 3. Discussed breathing techniques that patient could utilize to help manage her anxiety. 4. Discussed the importance of scheduling an appointment for individual psychotherapy. Consult was placed for patient to schedule a visit with Dr. Del Toro. 5. Follow-up with this provider in 4 to 6 weeks The effects and side effects of all her medications were reviewed in detail. She denies any side effects from her medications currently. PDMP report was reviewed and found to be appropriate without any signs of misuse or diversion. Patient is in agreement with the treatment plan. She is aware to reach out with any questions, concerns, or worsening of symptoms prior to the next appointment. CC: Depression and anxiety With the patient consent, visit was performed virtually. HPI: Emely Centeno is a 60 year old Female with a history of panic disorder, insomnia, major depression presenting today for follow-up. Date of last visit: 09/08/2021 Plan from last visit: 1. Start Abilify to help with her symptoms of depression and racing thoughts. 2. Utilize Ativan as needed for increased feelings of anxiety. Increased dose slightly currently. 3. Continue Effexor and Ambien at the same dose. 4. Continue to Utilize Vistaril as needed for increased feelings of anxiety prior to trying Ativan. 5. Encouraged the patient to focus on mindfulness and direct thoughts to present in stead of worrying about future. Today Angelia shares that she has been struggling with increase in anxiety and feelings of panic. Shares that she was taken to the hospital in September as thought she had a stroke. She was thenreferred to neurology. She was admitted inpatient at [facility] for [facility]. They continued her Topamax at the same dose and increased her gabapentin. Patient has been struggling with increased worries related to her physical health. The changes in her physical health triggered some thoughts related to the last time that she was in the hospital and how she almost . Patient worries about the future as well as coping with her physical health problems. She continuesto struggle with chronic pain. She also has an eye surgery that is coming up. She has significant increase in anxiety due to this situation. We discussed the importance of processing and learning how to cope with some of the health related anxiety. She is open to trying individual psychotherapy with Dr. Del Toro. Breathing and relaxation technique was reviewed with the patient. She is in agreement of trying that to manage her anxiety and racing thoughts. She has been tolerating her psychotropic medications without any side effects. She denies any episodes of dizziness or falls. She feels that it would be helpful to have more Ativan on hand because ofher increased anxiety. We agreed to temporarily increase the amount back to 40 tablets a month. Interval Progress: Slightly worse Risks and benefits of the medication, including any black box warnings, were discussed with the patient. Social History: See HPI PATIENT DATA: Generalized Anxiety Disorder Scale (BHAVIK-7) BHAVIK - 7 SCORES 10/04/2021 11/17/2021 11/17/2021 BHAVIK-7 Score 21 17 17 (0-4) minimal anxiety, (5-9) mild anxiety, (10-14) moderate anxiety, (15-21) severe anxiety Patient Health Questionnaire (PHQ-9) PHQ-9 10/04/2021 11/17/2021 11/17/2021 Score 9 15 15 (0-4) minimal depression, (5-9) mild depression, (10-14) moderate depression, (15-19) moderately severe depression, (20-27) severe depression ROS: See HPI MENTAL STATUS EXAMINATION: Appearance: Appropriately groomed, appears stated age Behavior: Appropriately engaged Psychomotor: No psychomotor agitation Cognition Level of Consciousness: Awake and alert. No fluctuation in wakefulness. Orientation: Grossly oriented Memory: Intact Attention/Concentration: Good Fund of Knowledge: Able to demonstrate an awareness of current events. Mood: Anxious Affect: congruent to mood Speech/Language: Appropriate tone, prosody, matt, phonetics, and syntax Thought Form: Goal-directed. No loosening of associations. Thought Content: No delusions noted or endorsed. Perceptual Disturbances: Did not appear to respond to auditory stimuli. Safety: Suicidal Ideations: No suicidal ideation, intent or plan. Homicidal Ideations: No homicidal ideation, intent or plan. Insight: Appropriate Judgment: Appropriate I spent a total of 38 minutes on the date of the service which included preparing to see the patient, [id number] patient care, completing clinical documentation, and counseling and educating the patient/family/caregiver, ordering medications/labs. Zina Wise APRN.NEON INSTALLER November 19, 2021 1:57 PM [facility] History of Past illness Narrative* Problem Noted Date Resolved Date Diabetes mellitus 11/17/2021 01/14/2022 Climacteric 03/29/2012 05/08/2015 Enlargement of lymph nodes 06/12/200807/01 ANXIETY REACTION 08/31/2005 07/01/2009 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 07/01/2009 Closed Colles' fracture 05/09/2003 07/01/20 09 Unspecified essential hypertension 02/19/2003 07/01/2009 documented as of this encounter (statuses as of 01/14/2022) [facility] History of Past illness Narrative* Problem Noted Date Resolved Date Diabetes mellitus 11/17/2021 01/14/2022 Climacteric 03/29/2012 05/08/2015 Enlargement of lymph nodes 06/12/200807/01 ANXIETY REACTION 08/31/2005 07/01/2009 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 07/01/2009 Closed Colles' fracture 05/09/2003 07/01/20 09 Unspecified essential hypertension 02/19/2003 07/01/2009 documented as of this encounter (statuses as of 01/19/2022) [facility] History of Past illness Narrative* Problem Noted Date Resolved Date Diabetes mellitus 11/17/2021 01/14/2022 Climacteric 03/29/2012 05/08/2015 Enlargement of lymph nodes 06/12/200807/01 ANXIETY REACTION 08/31/2005 07/01/2009 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 07/01/2009 Closed Colles' fracture 05/09/2003 07/01/20 09 Unspecified essential hypertension 02/19/2003 07/01/2009 documented as of this encounter (statuses as of 01/22/2022) [address]04-2022 History of Past illness Narrative* Problem Noted Date Resolved Date Diabetes mellitus 11/17/2021 01/14/2022 Climacteric 03/29/2012 05/08/2015 Enlargement of lymph nodes 06/12/200807/01 ANXIETY REACTION 08/31/2005 07/01/2009 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 07/01/2009 Closed Colles' fracture 05/09/2003 07/01/20 09 Unspecified essential hypertension 02/19/2003 07/01/2009 documented as of this encounter (statuses as of 01/22/2022) [address]04-2022 History of Past illness Narrative* Problem Noted Date Resolved Date Diabetes mellitus 11/17/2021 01/14/2022 Climacteric 03/29/2012 05/08/2015 Enlargement of lymph nodes 06/12/200807/01 ANXIETY REACTION 08/31/2005 07/01/2009 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 07/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 Closed Colles' fracture 05/09/2003 07/01/20 09 Unspecified essential hypertension 02/19/2003 07/01/2009 documented as of this encounter (statuses as of 01/29/2022) [address]04-2022 History of Past illness Narrative* Problem Noted Date Resolved Date Diabetes mellitus 11/17/2021 01/14/2022 Climacteric 03/29/2012 05/08/2015 Enlargement of lymph nodes 06/12/200807/01 ANXIETY REACTION 08/31/2005 07/01/2009 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 07/01/2009 Closed Colles' fracture 05/09/2003 07/01/20 09 Unspecified essential hypertension 02/19/2003 07/01/2009 documented as of this encounter (statuses as of 02/02/2022) [facility] Past illness Narrative* Problem Noted Date Resolved Date Diabetes mellitus 11/17/2021 01/14/2022 Climacteric 03/29/2012 05/08/2015 Enlargement of lymph nodes 06/12/200807/01 ANXIETY REACTION 08/31/2005 07/01/2009 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 07/01/2009 Closed Colles' fracture 05/09/2003 07/01/20 09 Unspecified essential hypertension 02/19/2003 07/01/2009 documented as of this encounter (statuses as of 02/10/2022) [facility] of Past illness Narrative* Problem Noted Date Resolved Date Diabetes mellitus 11/17/2021 01/14/2022 Climacteric 03/29/2012 05/08/2015 Enlargement of lymph nodes 06/12/200807/01 ANXIETY REACTION 08/31/2005 07/01/2009 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 07/01/2009 Closed Colles' fracture 05/09/2003 07/01/20 09 Unspecified essential hypertension 02/19/2003 07/01/2009 documented as of this encounter (statuses as of 02/12/2022) [facility] of Past illness Narrative* Problem Noted Date Resolved Date Diabetes mellitus 11/17/2021 01/14/2022 Climacteric 03/29/2012 05/08/2015 Enlargement of lymph nodes 06/12/200807/01 ANXIETY REACTION 08/31/2005 07/01/2009 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 07/01/2009 Closed Colles' fracture 05/09/2003 07/01/20 09 Unspecified essential hypertension 02/19/2003 07/01/2009 documented as of this encounter (statuses as of 02/13/2022) [address]04-2022 History of Past illness Narrative* Problem Noted Date Resolved Date Diabetes mellitus 11/17/2021 01/14/2022 Climacteric 03/29/2012 05/08/2015 Enlargement of lymph nodes 06/12/200807/01 ANXIETY REACTION 08/31/2005 07/01/2009 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 07/01/2009 Closed Colles' fracture 05/09/2003 07/01/20 09 Unspecified essential hypertension 02/19/2003 07/01/2009 documented as of this encounter (statuses as of 02/17/2022) [address]04-2022 History of Past illness Narrative* Problem Noted Date Resolved Date Diabetes mellitus 11/17/2021 01/14/2022 Climacteric 03/29/2012 05/08/2015 Enlargement of lymph nodes 06/12/200807/01 ANXIETY REACTION 08/31/2005 07/01/2009 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 07/01/2009 Closed Colles' fracture 05/09/2003 07/01/20 09 Unspecified essential hypertension 02/19/2003 07/01/2009 documented as of this encounter (statuses as of 02/20/2022) [address]04-2022 History of Past illness Narrative* Problem Noted Date Resolved Date Diabetes mellitus 11/17/2021 01/14/2022 Climacteric 03/29/2012 05/08/2015 Enlargement of lymph nodes 06/12/200807/01 ANXIETY REACTION 08/31/2005 07/01/2009 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 07/01/2009 Closed Colles' fracture 05/09/2003 07/01/20 09 Unspecified essential hypertension 02/19/2003 07/01/2009 documented as of this encounter (statuses as of 02/20/2022) [address]04-2022 History of Past illness Narrative* Problem Noted Date Resolved Date Diabetes mellitus 11/17/2021 01/14/2022 Climacteric 03/29/2012 05/08/2015 Enlargement of lymph nodes 06/12/200807/01 ANXIETY REACTION 08/31/2005 07/01/2009 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 07/01/2009 Closed Colles' fracture 05/09/2003 07/01/20 09 Unspecified essential hypertension 02/19/2003 07/01/2009 documented as of this encounter (statuses as of 02/23/2022) [address]04-2022 History of Past illness Narrative* Problem Noted Date Resolved Date Diabetes mellitus 11/17/2021 01/14/2022 Climacteric 03/29/2012 05/08/2015 Enlargement of lymph nodes 06/12/200807/01 ANXIETY REACTION 08/31/2005 07/01/2009 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 07/01/2009 Closed Colles' fracture 05/09/2003 07/01/20 09 Unspecified essential hypertension 02/19/2003 07/01/2009 documented as of this encounter (statuses as of 02/26/2022) [facility] Past illness Narrative* Problem Noted Date Resolved Date Diabetes mellitus 11/17/2021 01/14/2022 Climacteric 03/29/2012 05/08/2015 Enlargement of lymph nodes 06/12/200807/01 ANXIETY REACTION 08/31/2005 07/01/2009 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 07/01/2009 Closed Colles' fracture 05/09/2003 07/01/20 09 Unspecified essential hypertension 02/19/2003 07/01/2009 documented as of this encounter (statuses as of 02/26/2022) [facility] of Past illness Narrative* Problem Noted Date Resolved Date Diabetes mellitus 11/17/2021 01/14/2022 Climacteric 03/29/2012 05/08/2015 Enlargement of lymph nodes 06/12/200807/01 ANXIETY REACTION 08/31/2005 07/01/2009 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 07/01/2009 Closed Colles' fracture 05/09/2003 07/01/20 09 Unspecified essential hypertension 02/19/2003 07/01/2009 documented as of this encounter (statuses as of 03/03/2022) [address]04-2022 History of Past illness Narrative* Problem Noted Date Resolved Date Diabetes mellitus 11/17/2021 01/14/2022 Climacteric 03/29/2012 05/08/2015 Enlargement of lymph nodes 06/12/200807/01 ANXIETY REACTION 08/31/2005 07/01/2009 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 07/01/2009 Closed Colles' fracture 05/09/2003 07/01/20 09 Unspecified essential hypertension 02/19/2003 07/01/2009 documented as of this encounter (statuses as of 03/04/2022) [address]04-2022 History of Past illness Narrative* Problem Noted Date Resolved Date Diabetes mellitus 11/17/2021 01/14/2022 Climacteric 03/29/2012 05/08/2015 Enlargement of lymph nodes 06/12/200807/01 ANXIETY REACTION 08/31/2005 07/01/2009 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 07/01/2009 Closed Colles' fracture 05/09/2003 07/01/20 09 Unspecified essential hypertension 02/19/2003 07/01/2009 documented as of this encounter (statuses as of 03/11/2022) [place] [address]-04-2022 History of Past illness Narrative* Problem Noted Date Resolved Date Diabetes mellitus 11/17/2021 01/14/2022 Climacteric 03/29/2012 05/08/2015 Enlargement of lymph nodes 06/12/200807/01 ANXIETY REACTION 08/31/2005 07/01/2009 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 07/01/2009 Closed Colles' fracture 05/09/2003 07/01/20 09 Unspecified essential hypertension 02/19/2003 07/01/2009 documented as of this encounter (statuses as of 03/13/2022) [place] [address]-04-2022 History of Past illness Narrative* Problem Noted Date Resolved Date Diabetes mellitus 11/17/2021 01/14/2022 Climacteric 03/29/2012 05/08/2015 Enlargement of lymph nodes 06/12/200807/01 ANXIETY REACTION 08/31/2005 07/01/2009 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 07/01/2009 Closed Colles' fracture 05/09/2003 07/01/20 09 Unspecified essential hypertension 02/19/2003 07/01/2009 documented as of this encounter (statuses as of 03/17/2022) [address]04-2022 History of Past illness Narrative* Problem Noted Date Resolved Date Diabetes mellitus 11/17/2021 01/14/2022 Climacteric 03/29/2012 05/08/2015 Enlargement of lymph nodes 06/12/200807/01 ANXIETY REACTION 08/31/2005 07/01/2009 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 07/01/2009 Closed Colles' fracture 05/09/2003 07/01/20 09 Unspecified essential hypertension 02/19/2003 07/01/2009 documented as of this encounter (statuses as of 03/19/2022) [facility] of Past illness Narrative* Problem Noted Date Resolved Date Diabetes mellitus 11/17/2021 01/14/2022 Climacteric 03/29/2012 05/08/2015 Enlargement of lymph nodes 06/12/200807/01 ANXIETY REACTION 08/31/2005 07/01/2009 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 07/01/2009 Closed Colles' fracture 05/09/2003 07/01/20 09 Unspecified essential hypertension 02/19/2003 07/01/2009 documented as of this encounter (statuses as of 04/02/2022) [facility] History of Past illness Narrative* Problem Noted Date Resolved Date Diabetes mellitus 11/17/2021 01/14/2022 Climacteric 03/29/2012 05/08/2015 Enlargement of lymph nodes 06/12/200807/01 ANXIETY REACTION 08/31/2005 07/01/2009 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 07/01/2009 Closed Colles' fracture 05/09/2003 07/01/20 09 Unspecified essential hypertension 02/19/2003 07/01/2009 documented as of this encounter (statuses as of 04/03/2022) [facility] History of Past illness Narrative* Problem Noted Date Resolved Date Diabetes mellitus 11/17/2021 01/14/2022 Climacteric 03/29/2012 05/08/2015 Enlargement of lymph nodes 06/12/200807/01 ANXIETY REACTION 08/31/2005 07/01/2009 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 07/01/2009 Closed Colles' fracture 05/09/2003 07/01/20 09 Unspecified essential hypertension 02/19/2003 07/01/2009 documented as of this encounter (statuses as of 04/08/2022) [facility] Past illness Narrative* Problem Noted Date Resolved Date Diabetes mellitus 11/17/2021 01/14/2022 Climacteric 03/29/2012 05/08/2015 Enlargement of lymph nodes 06/12/200807/01 ANXIETY REACTION 08/31/2005 07/01/2009 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 07/01/2009 Closed Colles' fracture 05/09/2003 07/01/20 09 Unspecified essential hypertension 02/19/2003 07/01/2009 documented as of this encounter (statuses as of 04/16/2022) [address]04-2022 History of Past illness Narrative* Problem Noted Date Resolved Date Diabetes mellitus 11/17/2021 01/14/2022 Climacteric 03/29/2012 05/08/2015 Enlargement of lymph nodes 06/12/200807/01 ANXIETY REACTION 08/31/2005 07/01/2009 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 07/01/2009 Closed Colles' fracture 05/09/2003 07/01/20 09 Unspecified essential hypertension 02/19/2003 07/01/2009 documented as of this encounter (statuses as of 06/01/2022) [address]04-2022 History of Past illness Narrative* Problem Noted Date Resolved Date Diabetes mellitus 11/17/2021 01/14/2022 Climacteric 03/29/2012 05/08/2015 Enlargement of lymph nodes 06/12/200807/01 ANXIETY REACTION 08/31/2005 07/01/2009 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 07/01/2009 Closed Colles' fracture 05/09/2003 07/01/20 09 Unspecified essential hypertension 02/19/2003 07/01/2009 documented as of this encounter (statuses as of 06/01/2022) [address]04-2022 History of Past illness Narrative* Problem Noted Date Resolved Date Diabetes mellitus 11/17/2021 01/14/2022 Climacteric 03/29/2012 05/08/2015 Enlargement of lymph nodes 06/12/200807/01 ANXIETY REACTION 08/31/2005 07/01/2009 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 07/01/2009 Closed Colles' fracture 05/09/2003 07/01/20 09 Unspecified essential hypertension 02/19/2003 07/01/2009 documented as of this encounter (statuses as of 06/01/2022) [address]04-2022 History of Past illness Narrative* Problem Noted Date Resolved Date Diabetes mellitus 11/17/2021 01/14/2022 Climacteric 03/29/2012 05/08/2015 Enlargement of lymph nodes 06/12/200807/01 ANXIETY REACTION 08/31/2005 07/01/2009 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 07/01/2009 Closed Colles' fracture 05/09/2003 07/01/20 09 Unspecified essential hypertension 02/19/2003 07/01/2009 documented as of this encounter (statuses as of 06/02/2022) [address]04-2022 History of Past illness Narrative* Problem Noted Date Resolved Date Diabetes mellitus 11/17/2021 01/14/2022 Climacteric 03/29/2012 05/08/2015 Enlargement of lymph nodes 06/12/200807/01 ANXIETY REACTION 08/31/2005 07/01/2009 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 07/01/2009 Closed Colles' fracture 05/09/2003 07/01/20 09 Unspecified essential hypertension 02/19/2003 07/01/2009 documented as of this encounter (statuses as of 06/06/2022) [address]04-2022 History of Past illness Narrative* Problem Noted Date Resolved Date Diabetes mellitus 11/17/2021 01/14/2022 Climacteric 03/29/2012 05/08/2015 Enlargement of lymph nodes 06/12/200807/01 ANXIETY REACTION 08/31/2005 07/01/2009 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 07/01/2009 Closed Colles' fracture 05/09/2003 07/01/20 09 Unspecified essential hypertension 02/19/2003 07/01/2009 documented as of this encounter (statuses as of 06/08/2022) [place] [address]04-[address]22 History of Past illness Narrative* Problem Noted Date Resolved Date Diabetes mellitus 11/17/2021 01/14/2022 Climacteric 03/29/2012 05/08/2015 Enlargement of lymph nodes 06/12/200807/01 ANXIETY REACTION 08/31/2005 07/01/2009 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 07/01/2009 Closed Colles' fracture 05/09/2003 07/01/20 09 Unspecified essential hypertension 02/19/2003 07/01/2009 documented as of this encounter (statuses as of 06/09/2022) [address]04-2022 History of Past illness Narrative* Problem Noted Date Resolved Date Diabetes mellitus 11/17/2021 01/14/2022 Climacteric 03/29/2012 05/08/2015 Enlargement of lymph nodes 06/12/200807/01 ANXIETY REACTION 08/31/2005 07/01/2009 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 07/01/2009 Closed Colles' fracture 05/09/2003 07/01/20 09 Unspecified essential hypertension 02/19/2003 07/01/2009 documented as of this encounter (statuses as of 06/12/2022) [address]04-2022 History of Past illness Narrative* Problem Noted Date Resolved Date Diabetes mellitus 11/17/2021 01/14/2022 Climacteric 03/29/2012 05/08/2015 Enlargement of lymph nodes 06/12/200807/01 ANXIETY REACTION 08/31/2005 07/01/2009 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 07/01/2009 Closed Colles' fracture 05/09/2003 07/01/20 09 Unspecified essential hypertension 02/19/2003 07/01/2009 documented as of this encounter (statuses as of 06/23/2022) [place] [address]-04-[address]22 History of Past illness Narrative* Problem Noted Date Resolved Date Diabetes mellitus 11/17/2021 01/14/2022 Climacteric 03/29/2012 05/08/2015 Enlargement of lymph nodes 06/12/200807/01 ANXIETY REACTION 08/31/2005 07/01/2009 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 07/01/2009 Closed Colles' fracture 05/09/2003 07/01/20 09 Unspecified essential hypertension 02/19/2003 07/01/2009 documented as of this encounter (statuses as of 07/01/2022) [address]04-2022 History of Past illness Narrative* Problem Noted Date Resolved Date Diabetes mellitus 11/17/2021 01/14/2022 Climacteric 03/29/2012 05/08/2015 Enlargement of lymph nodes 06/12/200807/01 ANXIETY REACTION 08/31/2005 07/01/2009 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 07/01/2009 Closed Colles' fracture 05/09/2003 07/01/20 09 Unspecified essential hypertension 02/19/2003 07/01/2009 documented as of this encounter (statuses as of 07/03/2022) [facility] History of Past illness Narrative* Problem Noted Date Resolved Date Diabetes mellitus 11/17/2021 01/14/2022 Climacteric 03/29/2012 05/08/2015 Enlargement of lymph nodes 06/12/200807/01 ANXIETY REACTION 08/31/2005 07/01/2009 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 07/01/2009 Closed Colles' fracture 05/09/2003 07/01/20 09 Unspecified essential hypertension 02/19/2003 07/01/2009 documented as of this encounter (statuses as of 07/17/2022) [facility] History of Past illness Narrative* Problem Noted Date Resolved Date Diabetes mellitus 11/17/2021 01/14/2022 Climacteric 03/29/2012 05/08/2015 Enlargement of lymph nodes 06/12/200807/01 ANXIETY REACTION 08/31/2005 07/01/2009 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 07/01/2009 Closed Colles' fracture 05/09/2003 07/01/20 09 Unspecified essential hypertension 02/19/2003 07/01/2009 documented as of this encounter (statuses as of 07/21/2022) [facility] History of Past illness Narrative* Problem Noted Date Resolved Date Diabetes mellitus 11/17/2021 01/14/2022 Climacteric 03/29/2012 05/08/2015 Enlargement of lymph nodes 06/12/200807/01 ANXIETY REACTION 08/31/2005 07/01/2009 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 07/01/2009 Closed Colles' fracture 05/09/2003 07/01/20 09 Unspecified essential hypertension 02/19/2003 07/01/2009 documented as of this encounter (statuses as of 07/22/2022) [place] [address]04-[address]22 History of Past illness Narrative* Problem Noted Date Resolved Date Diabetes mellitus 11/17/2021 01/14/2022 Climacteric 03/29/2012 05/08/2015 Enlargement of lymph nodes 06/12/200807/01 ANXIETY REACTION 08/31/2005 07/01/2009 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 07/01/2009 Closed Colles' fracture 05/09/2003 07/01/20 09 Unspecified essential hypertension 02/19/2003 07/01/2009 documented as of this encounter (statuses as of 07/29/2022) [address]04-2022 History of Past illness Narrative* Problem Noted Date Resolved Date Diabetes mellitus 11/17/2021 01/14/2022 Climacteric 03/29/2012 05/08/2015 Enlargement of lymph nodes 06/12/200807/01 ANXIETY REACTION 08/31/2005 07/01/2009 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 07/01/2009 Closed Colles' fracture 05/09/2003 07/01/20 09 Unspecified essential hypertension 02/19/2003 07/01/2009 documented as of this encounter (statuses as of 08/03/2022) [address]04-2022 History of Past illness Narrative* Problem Noted Date Resolved Date Diabetes mellitus 11/17/2021 01/14/2022 Climacteric 03/29/2012 05/08/2015 Enlargement of lymph nodes 06/12/200807/01 ANXIETY REACTION 08/31/2005 07/01/2009 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 07/01/2009 Closed Colles' fracture 05/09/2003 07/01/20 09 Unspecified essential hypertension 02/19/2003 07/01/2009 documented as of this encounter (statuses as of 08/04/2022) [address]04-2022 History of Past illness Narrative* Problem Noted Date Resolved Date Diabetes mellitus 11/17/2021 01/14/2022 Climacteric 03/29/2012 05/08/2015 Enlargement of lymph nodes 06/12/200807/01 ANXIETY REACTION 08/31/2005 07/01/2009 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 07/01/2009 Closed Colles' fracture 05/09/2003 07/01/20 09 Unspecified essential hypertension 02/19/2003 07/01/2009 documented as of this encounter (statuses as of 08/10/2022) [address]04-2022 History of Past illness Narrative* Problem Noted Date Resolved Date Diabetes mellitus 11/17/2021 01/14/2022 Climacteric 03/29/2012 05/08/2015 Enlargement of lymph nodes 06/12/200807/01 ANXIETY REACTION 08/31/2005 07/01/2009 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 07/01/2009 Closed Colles' fracture 05/09/2003 07/01/20 09 Unspecified essential hypertension 02/19/2003 07/01/2009 documented as of this encounter (statuses as of 08/16/2022) [address]04-2022 History of Past illness Narrative* Problem Noted Date Resolved Date Diabetes mellitus 11/17/2021 01/14/2022 Climacteric 03/29/2012 05/08/2015 Enlargement of lymph nodes 06/12/200807/01 ANXIETY REACTION 08/31/2005 07/01/2009 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 07/01/2009 Closed Colles' fracture 05/09/2003 07/01/20 09 Unspecified essential hypertension 02/19/2003 07/01/2009 documented as of this encounter (statuses as of 08/18/2022) [address]04-2022 History of Past illness Narrative* Problem Noted Date Resolved Date Diabetes mellitus 11/17/2021 01/14/2022 Climacteric 03/29/2012 05/08/2015 Enlargement of lymph nodes 06/12/200807/01 ANXIETY REACTION 08/31/2005 07/01/2009 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 07/01/2009 Closed Colles' fracture 05/09/2003 07/01/20 09 Unspecified essential hypertension 02/19/2003 07/01/2009 documented as of this encounter (statuses as of 08/20/2022) [address]04-2022 History of Past illness Narrative* Problem Noted Date Resolved Date Diabetes mellitus 11/17/2021 01/14/2022 Climacteric 03/29/2012 05/08/2015 Enlargement of lymph nodes 06/12/200807/01 ANXIETY REACTION 08/31/2005 07/01/2009 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 07/01/2009 Closed Colles' fracture 05/09/2003 07/01/20 09 Unspecified essential hypertension 02/19/2003 07/01/2009 documented as of this encounter (statuses as of 08/25/2022) [facility]04-04-2022 History of Past illness Narrative* Problem Noted Date Resolved Date Diabetes mellitus 11/17/2021 01/14/2022 Climacteric 03/29/2012 05/08/2015 Enlargement of lymph nodes 06/12/200807/01 ANXIETY REACTION 08/31/2005 07/01/2009 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 07/01/2009 Closed Colles' fracture 05/09/2003 07/01/20 09 Unspecified essential hypertension 02/19/2003 07/01/2009 documented as of this encounter (statuses as of 08/27/2022) [facility]04-04-2022 History of Past illness Narrative* Problem Noted Date Resolved Date Diabetes mellitus 11/17/2021 01/14/2022 Climacteric 03/29/2012 05/08/2015 Enlargement of lymph nodes 06/12/200807/01 ANXIETY REACTION 08/31/2005 07/01/2009 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 07/01/2009 Closed Colles' fracture 05/09/2003 07/01/20 09 Unspecified essential hypertension 02/19/2003 07/01/2009 documented as of this encounter (statuses as of 09/08/2022) [facility]04-04-2022 History of Past illness Narrative* Problem Noted Date Resolved Date Diabetes mellitus 11/17/2021 01/14/2022 Climacteric 03/29/2012 05/08/2015 Enlargement of lymph nodes 06/12/200807/01 ANXIETY REACTION 08/31/2005 07/01/2009 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 07/01/2009 Closed Colles' fracture 05/09/2003 07/01/20 09 Unspecified essential hypertension 02/19/2003 07/01/2009 documented as of this encounter (statuses as of 09/09/2022) [address]04-2022 History of Past illness Narrative* Problem Noted Date Resolved Date Diabetes mellitus 11/17/2021 01/14/2022 Climacteric 03/29/2012 05/08/2015 Enlargement of lymph nodes 06/12/200807/01 ANXIETY REACTION 08/31/2005 07/01/2009 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 07/01/2009 Closed Colles' fracture 05/09/2003 07/01/20 09 Unspecified essential hypertension 02/19/2003 07/01/2009 documented as of this encounter (statuses as of 09/10/2022) [address]04-2022 History of Past illness Narrative* Problem Noted Date Resolved Date Diabetes mellitus 11/17/2021 01/14/2022 Climacteric 03/29/2012 05/08/2015 Enlargement of lymph nodes 06/12/200807/01 ANXIETY REACTION 08/31/2005 07/01/2009 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 07/01/2009 Closed Colles' fracture 05/09/2003 07/01/20 09 Unspecified essential hypertension 02/19/2003 07/01/2009 documented as of this encounter (statuses as of 09/14/2022) [address]04-2022 History of Past illness Narrative* Problem Noted Date Resolved Date Diabetes mellitus 11/17/2021 01/14/2022 Climacteric 03/29/2012 05/08/2015 Enlargement of lymph nodes 06/12/200807/01 ANXIETY REACTION 08/31/2005 07/01/2009 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 07/01/2009 Closed Colles' fracture 05/09/2003 07/01/20 09 Unspecified essential hypertension 02/19/2003 07/01/2009 documented as of this encounter (statuses as of 09/16/2022) [address]04-2022 History of Past illness Narrative* Problem Noted Date Resolved Date Diabetes mellitus 11/17/2021 01/14/2022 Climacteric 03/29/2012 05/08/2015 Enlargement of lymph nodes 06/12/200807/01 ANXIETY REACTION 08/31/2005 07/01/2009 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 07/01/2009 Closed Colles' fracture 05/09/2003 07/01/20 09 Unspecified essential hypertension 02/19/2003 07/01/2009 documented as of this encounter (statuses as of 09/17/2022) [address]04-2022 History of Past illness Narrative* Problem Noted Date Resolved Date Diabetes mellitus 11/17/2021 01/14/2022 Climacteric 03/29/2012 05/08/2015 Enlargement of lymph nodes 06/12/200807/01 ANXIETY REACTION 08/31/2005 07/01/2009 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 07/01/2009 Closed Colles' fracture 05/09/2003 07/01/20 09 Unspecified essential hypertension 02/19/2003 07/01/2009 documented as of this encounter (statuses as of 09/23/2022) [address]04-2022 History of Past illness Narrative* Problem Noted Date Resolved Date Diabetes mellitus 11/17/2021 01/14/2022 Climacteric 03/29/2012 05/08/2015 Enlargement of lymph nodes 06/12/200807/01 ANXIETY REACTION 08/31/2005 07/01/2009 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 07/01/2009 Closed Colles' fracture 05/09/2003 07/01/20 09 Unspecified essential hypertension 02/19/2003 07/01/2009 documented as of this encounter (statuses as of 09/23/2022) [address]04-2022 History of Past illness Narrative* Problem Noted Date Resolved Date Diabetes mellitus 11/17/2021 01/14/2022 Climacteric 03/29/2012 05/08/2015 Enlargement of lymph nodes 06/12/200807/01 ANXIETY REACTION 08/31/2005 07/01/2009 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 07/01/2009 Closed Colles' fracture 05/09/2003 07/01/20 09 Unspecified essential hypertension 02/19/2003 07/01/2009 documented as of this encounter (statuses as of 09/30/2022) [address]04-2022 History of Past illness Narrative* Problem Noted Date Resolved Date Diabetes mellitus 11/17/2021 01/14/2022 Climacteric 03/29/2012 05/08/2015 Enlargement of lymph nodes 06/12/200807/01 ANXIETY REACTION 08/31/2005 07/01/2009 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 07/01/2009 Closed Colles' fracture 05/09/2003 07/01/20 09 Unspecified essential hypertension 02/19/2003 07/01/2009 documented as of this encounter (statuses as of 09/30/2022) [place] [address]-04-2022 History of Past illness Narrative* Problem Noted Date Resolved Date Diabetes mellitus 11/17/2021 01/14/2022 Climacteric 03/29/2012 05/08/2015 Enlargement of lymph nodes 06/12/200807/01 ANXIETY REACTION 08/31/2005 07/01/2009 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 07/01/2009 Closed Colles' fracture 05/09/2003 07/01/20 09 Unspecified essential hypertension 02/19/2003 07/01/2009 documented as of this encounter (statuses as of 10/01/2022) [facility]04-04-2022 History of Past illness Narrative* Problem Noted Date Resolved Date Diabetes mellitus 11/17/2021 01/14/2022 Climacteric 03/29/2012 05/08/2015 Enlargement of lymph nodes 06/12/200807/01 ANXIETY REACTION 08/31/2005 07/01/2009 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 07/01/2009 Closed Colles' fracture 05/09/2003 07/01/20 09 Unspecified essential hypertension 02/19/2003 07/01/2009 documented as of this encounter (statuses as of 10/09/2022) [facility]04-04-2022 History of Past illness Narrative* Problem Noted Date Resolved Date Diabetes mellitus 11/17/2021 01/14/2022 Climacteric 03/29/2012 05/08/2015 Enlargement of lymph nodes 06/12/200807/01 ANXIETY REACTION 08/31/2005 07/01/2009 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 07/01/2009 Closed Colles' fracture 05/09/2003 07/01/20 09 Unspecified essential hypertension 02/19/2003 07/01/2009 documented as of this encounter (statuses as of 10/14/2022) [place] [address]-04-2022 History of Past illness Narrative* Problem Noted Date Resolved Date Diabetes mellitus 11/17/2021 01/14/2022 Climacteric 03/29/2012 05/08/2015 Enlargement of lymph nodes 06/12/200807/01 ANXIETY REACTION 08/31/2005 07/01/2009 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 07/01/2009 Closed Colles' fracture 05/09/2003 07/01/20 09 Unspecified essential hypertension 02/19/2003 07/01/2009 documented as of this encounter (statuses as of 10/19/2022) [facility]04-04-2022 History of Past illness Narrative* Problem Noted Date Resolved Date Diabetes mellitus 11/17/2021 01/14/2022 Climacteric 03/29/2012 05/08/2015 Enlargement of lymph nodes 06/12/200807/01 ANXIETY REACTION 08/31/2005 07/01/2009 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 07/01/2009 Closed Colles' fracture 05/09/2003 07/01/20 09 Unspecified essential hypertension 02/19/2003 07/01/2009 documented as of this encounter (statuses as of 10/20/2022) [facility]04-04-2022 History of Past illness Narrative* Problem Noted Date Resolved Date Diabetes mellitus 11/17/2021 01/14/2022 Climacteric 03/29/2012 05/08/2015 Enlargement of lymph nodes 06/12/200807/01 ANXIETY REACTION 08/31/2005 07/01/2009 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 07/01/2009 Closed Colles' fracture 05/09/2003 07/01/20 09 Unspecified essential hypertension 02/19/2003 07/01/2009 documented as of this encounter (statuses as of 10/22/2022) [facility]04-04-2022 History of Past illness Narrative* Problem Noted Date Resolved Date Diabetes mellitus 11/17/2021 01/14/2022 Climacteric 03/29/2012 05/08/2015 Enlargement of lymph nodes 06/12/200807/01 ANXIETY REACTION 08/31/2005 07/01/2009 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 07/01/2009 Closed Colles' fracture 05/09/2003 07/01/20 09 Unspecified essential hypertension 02/19/2003 07/01/2009 documented as of this encounter (statuses as of 10/24/2022) [address]04-2022 History of Past illness Narrative* Problem Noted Date Resolved Date Diabetes mellitus 11/17/2021 01/14/2022 Climacteric 03/29/2012 05/08/2015 Enlargement of lymph nodes 06/12/200807/01 ANXIETY REACTION 08/31/2005 07/01/2009 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 07/01/2009 Closed Colles' fracture 05/09/2003 07/01/20 09 Unspecified essential hypertension 02/19/2003 07/01/2009 documented as of this encounter (statuses as of 10/30/2022) [address]04-2022 History of Past illness Narrative* Problem Noted Date Resolved Date Diabetes mellitus 11/17/2021 01/14/2022 Climacteric 03/29/2012 05/08/2015 Enlargement of lymph nodes 06/12/200807/01 ANXIETY REACTION 08/31/2005 07/01/2009 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 07/01/2009 Closed Colles' fracture 05/09/2003 07/01/20 09 Unspecified essential hypertension 02/19/2003 07/01/2009 documented as of this encounter (statuses as of 11/20/2022) [address]04-2022 History of Past illness Narrative* Problem Noted Date Resolved Date Diabetes mellitus 11/17/2021 01/14/2022 Climacteric 03/29/2012 05/08/2015 Enlargement of lymph nodes 06/12/200807/01 ANXIETY REACTION 08/31/2005 07/01/2009 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 07/01/2009 Closed Colles' fracture 05/09/2003 07/01/20 09 Unspecified essential hypertension 02/19/2003 07/01/2009 documented as of this encounter (statuses as of 11/27/2022) [address]04-2022 History of Past illness Narrative* Problem Noted Date Resolved Date Diabetes mellitus 11/17/2021 01/14/2022 Climacteric 03/29/2012 05/08/2015 Enlargement of lymph nodes 06/12/200807/01 ANXIETY REACTION 08/31/2005 07/01/2009 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 07/01/2009 Closed Colles' fracture 05/09/2003 07/01/20 09 Unspecified essential hypertension 02/19/2003 07/01/2009 documented as of this encounter (statuses as of 11/30/2022) [address]04-2022 History of Past illness Narrative* Problem Noted Date Resolved Date Diabetes mellitus 11/17/2021 01/14/2022 Climacteric 03/29/2012 05/08/2015 Enlargement of lymph nodes 06/12/200807/01 ANXIETY REACTION 08/31/2005 07/01/2009 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 07/01/2009 Closed Colles' fracture 05/09/2003 07/01/20 09 Unspecified essential hypertension 02/19/2003 07/01/2009 documented as of this encounter (statuses as of 11/30/2022) [place] [address]-04-2022 History of Past illness Narrative* Problem Noted Date Resolved Date Diabetes mellitus 11/17/2021 01/14/2022 Climacteric 03/29/2012 05/08/2015 Enlargement of lymph nodes 06/12/200807/01 ANXIETY REACTION 08/31/2005 07/01/2009 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 07/01/2009 Closed Colles' fracture 05/09/2003 07/01/20 09 Unspecified essential hypertension 02/19/2003 07/01/2009 documented as of this encounter (statuses as of 11/30/2022) [place] [address]-04-2022 History of Past illness Narrative* Problem Noted Date Resolved Date Diabetes mellitus 11/17/2021 01/14/2022 Climacteric 03/29/2012 05/08/2015 Enlargement of lymph nodes 06/12/200807/01 ANXIETY REACTION 08/31/2005 07/01/2009 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 07/01/2009 Closed Colles' fracture 05/09/2003 07/01/20 09 Unspecified essential hypertension 02/19/2003 07/01/2009 documented as of this encounter (statuses as of 12/02/2022) [address]04-2022 History of Past illness Narrative* Problem Noted Date Resolved Date Diabetes mellitus 11/17/2021 01/14/2022 Climacteric 03/29/2012 05/08/2015 Enlargement of lymph nodes 06/12/200807/01 ANXIETY REACTION 08/31/2005 07/01/2009 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 07/01/2009 Closed Colles' fracture 05/09/2003 07/01/20 09 Unspecified essential hypertension 02/19/2003 07/01/2009 documented as of this encounter (statuses as of 12/05/2022) [address]04-2022 History of Past illness Narrative* Problem Noted Date Resolved Date Diabetes mellitus 11/17/2021 01/14/2022 Climacteric 03/29/2012 05/08/2015 Enlargement of lymph nodes 06/12/200807/01 ANXIETY REACTION 08/31/2005 07/01/2009 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 07/01/2009 Closed Colles' fracture 05/09/2003 07/01/20 09 Unspecified essential hypertension 02/19/2003 07/01/2009 documented as of this encounter (statuses as of 12/09/2022) [place] [address]-04-2022 History of Past illness Narrative* Problem Noted Date Resolved Date Diabetes mellitus 11/17/2021 01/14/2022 Climacteric 03/29/2012 05/08/2015 Enlargement of lymph nodes 06/12/200807/01 ANXIETY REACTION 08/31/2005 07/01/2009 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 07/01/2009 Closed Colles' fracture 05/09/2003 07/01/20 09 Unspecified essential hypertension 02/19/2003 07/01/2009 documented as of this encounter (statuses as of 12/10/2022) [place] [address]-04-2022 History of Past illness Narrative* Problem Noted Date Resolved Date Diabetes mellitus 11/17/2021 01/14/2022 Climacteric 03/29/2012 05/08/2015 Enlargement of lymph nodes 06/12/200807/01 ANXIETY REACTION 08/31/2005 07/01/2009 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 07/01/2009 Closed Colles' fracture 05/09/2003 07/01/20 09 Unspecified essential hypertension 02/19/2003 07/01/2009 documented as of this encounter (statuses as of 12/17/2022) [address]04-2022 History of Past illness Narrative* Problem Noted Date Resolved Date Diabetes mellitus 11/17/2021 01/14/2022 Climacteric 03/29/2012 05/08/2015 Enlargement of lymph nodes 06/12/200807/01 ANXIETY REACTION 08/31/2005 07/01/2009 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 07/01/2009 Closed Colles' fracture 05/09/2003 07/01/20 09 Unspecified essential hypertension 02/19/2003 07/01/2009 documented as of this encounter (statuses as of 12/21/2022) [facility]04-04-2022 History of Past illness Narrative* Problem Noted Date Resolved Date Diabetes mellitus 11/17/2021 01/14/2022 Climacteric 03/29/2012 05/08/2015 Enlargement of lymph nodes 06/12/200807/01 ANXIETY REACTION 08/31/2005 07/01/2009 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 07/01/2009 Closed Colles' fracture 05/09/2003 07/01/20 09 Unspecified essential hypertension 02/19/2003 07/01/2009 documented as of this encounter (statuses as of 12/28/2022) [facility]-04-2022 History of Past illness Narrative* Problem Noted Date Resolved Date Diabetes mellitus 11/17/2021 01/14/2022 Climacteric 03/29/2012 05/08/2015 Enlargement of lymph nodes 06/12/200807/01 ANXIETY REACTION 08/31/2005 07/01/2009 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 07/01/2009 Closed Colles' fracture 05/09/2003 07/01/20 09 Unspecified essential hypertension 02/19/2003 07/01/2009 documented as of this encounter (statuses as of 01/22/2023) [facility]04-04-2022 History of Past illness Narrative* Problem Noted Date Resolved Date Diabetes mellitus 11/17/2021 01/14/2022 Climacteric 03/29/2012 05/08/2015 Enlargement of lymph nodes 06/12/200807/01 ANXIETY REACTION 08/31/2005 07/01/2009 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 07/01/2009 Closed Colles' fracture 05/09/2003 07/01/20 09 Unspecified essential hypertension 02/19/2003 07/01/2009 documented as of this encounter (statuses as of 01/10/2023) [facility]04-04-2022 History of Past illness Narrative* Problem Noted Date Resolved Date Diabetes mellitus 11/17/2021 01/14/2022 Climacteric 03/29/2012 05/08/2015 Enlargement of lymph nodes 06/12/200807/01 ANXIETY REACTION 08/31/2005 07/01/2009 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 07/01/2009 Closed Colles' fracture 05/09/2003 07/01/20 09 Unspecified essential hypertension 02/19/2003 07/01/2009 documented as of this encounter (statuses as of 01/15/2023) [address]04-2022 History of Past illness Narrative* Problem Noted Date Resolved Date Diabetes mellitus 11/17/2021 01/14/2022 Climacteric 03/29/2012 05/08/2015 Enlargement of lymph nodes 06/12/200807/01 ANXIETY REACTION 08/31/2005 07/01/2009 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 07/01/2009 Closed Colles' fracture 05/09/2003 07/01/20 09 Unspecified essential hypertension 02/19/2003 07/01/2009 documented as of this encounter (statuses as of 01/15/2023) [address]04-2022 History of Past illness Narrative* Problem Noted Date Resolved Date Diabetes mellitus 11/17/2021 01/14/2022 Climacteric 03/29/2012 05/08/2015 Enlargement of lymph nodes 06/12/200807/01 ANXIETY REACTION 08/31/2005 07/01/2009 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 07/01/2009 Closed Colles' fracture 05/09/2003 07/01/20 09 Unspecified essential hypertension 02/19/2003 07/01/2009 documented as of this encounter (statuses as of 01/16/2023) [address]04-2022 History of Past illness Narrative* Problem Noted Date Resolved Date Diabetes mellitus 11/17/2021 01/14/2022 Climacteric 03/29/2012 05/08/2015 Enlargement of lymph nodes 06/12/200807/01 ANXIETY REACTION 08/31/2005 07/01/2009 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 07/01/2009 Closed Colles' fracture 05/09/2003 07/01/20 09 Unspecified essential hypertension 02/19/2003 07/01/2009 documented as of this encounter (statuses as of 01/17/2023) [address]04-2022 History of Past illness Narrative* Problem Noted Date Resolved Date Diabetes mellitus 11/17/2021 01/14/2022 Climacteric 03/29/2012 05/08/2015 Enlargement of lymph nodes 06/12/200807/01 ANXIETY REACTION 08/31/2005 07/01/2009 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 07/01/2009 Closed Colles' fracture 05/09/2003 07/01/20 09 Unspecified essential hypertension 02/19/2003 07/01/2009 documented as of this encounter (statuses as of 01/19/2023) [address]04-2022 History of Past illness Narrative* Problem Noted Date Resolved Date Diabetes mellitus 11/17/2021 01/14/2022 Climacteric 03/29/2012 05/08/2015 Enlargement of lymph nodes 06/12/200807/01 ANXIETY REACTION 08/31/2005 07/01/2009 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 07/01/2009 Closed Colles' fracture 05/09/2003 07/01/20 09 Unspecified essential hypertension 02/19/2003 07/01/2009 documented as of this encounter (statuses as of 01/21/2023) [place] [address]-04-2022 History of Past illness Narrative* Problem Noted Date Resolved Date Diabetes mellitus 11/17/2021 01/14/2022 Climacteric 03/29/2012 05/08/2015 Enlargement of lymph nodes 06/12/200807/01 ANXIETY REACTION 08/31/2005 07/01/2009 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 07/01/2009 Closed Colles' fracture 05/09/2003 07/01/20 09 Unspecified essential hypertension 02/19/2003 07/01/2009 documented as of this encounter (statuses as of 01/25/2023) [place] [address]-04-2022 History of Past illness Narrative* Problem Noted Date Resolved Date Diabetes mellitus 11/17/2021 01/14/2022 Climacteric 03/29/2012 05/08/2015 Enlargement of lymph nodes 06/12/200807/01 ANXIETY REACTION 08/31/2005 07/01/2009 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 07/01/2009 Closed Colles' fracture 05/09/2003 07/01/20 09 Unspecified essential hypertension 02/19/2003 07/01/2009 documented as of this encounter (statuses as of 01/28/2023) [address]04-2022 History of Past illness Narrative* Problem Noted Date Resolved Date Diabetes mellitus 11/17/2021 01/14/2022 Climacteric 03/29/2012 05/08/2015 Enlargement of lymph nodes 06/12/200807/01 ANXIETY REACTION 08/31/2005 07/01/2009 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 07/01/2009 Closed Colles' fracture 05/09/2003 07/01/20 09 Unspecified essential hypertension 02/19/2003 07/01/2009 documented as of this encounter (statuses as of 02/02/2023) [facility]04[facility]2022 History of Past illness Narrative* Problem Noted Date Resolved Date Diabetes mellitus 11/17/2021 01/14/2022 Climacteric 03/29/2012 05/08/2015 Enlargement of lymph nodes 06/12/200807/01 ANXIETY REACTION 08/31/2005 07/01/2009 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 07/01/2009 Closed Colles' fracture 05/09/2003 07/01/20 09 Unspecified essential hypertension 02/19/2003 07/01/2009 documented as of this encounter (statuses as of 02/03/2023) [facility]04-04-2022 History of Past illness Narrative* Problem Noted Date Resolved Date Diabetes mellitus 11/17/2021 01/14/2022 Climacteric 03/29/2012 05/08/2015 Enlargement of lymph nodes 06/12/200807/01 ANXIETY REACTION 08/31/2005 07/01/2009 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 07/01/2009 Closed Colles' fracture 05/09/2003 07/01/20 09 Unspecified essential hypertension 02/19/2003 07/01/2009 documented as of this encounter (statuses as of 02/04/2023) [facility]04-04-2022 History of Past illness Narrative* Problem Noted Date Resolved Date Diabetes mellitus 11/17/2021 01/14/2022 Climacteric 03/29/2012 05/08/2015 Enlargement of lymph nodes 06/12/200807/01 ANXIETY REACTION 08/31/2005 07/01/2009 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 07/01/2009 Closed Colles' fracture 05/09/2003 07/01/20 09 Unspecified essential hypertension 02/19/2003 07/01/2009 documented as of this encounter (statuses as of 02/11/2023) [address]04-2022 History of Past illness Narrative* Problem Noted Date Resolved Date Diabetes mellitus 11/17/2021 01/14/2022 Climacteric 03/29/2012 05/08/2015 Enlargement of lymph nodes 06/12/200807/01 ANXIETY REACTION 08/31/2005 07/01/2009 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 07/01/2009 Closed Colles' fracture 05/09/2003 07/01/20 09 Unspecified essential hypertension 02/19/2003 07/01/2009 documented as of this encounter (statuses as of 02/15/2023) [address]04-2022 History of Past illness Narrative* Problem Noted Date Resolved Date Diabetes mellitus 11/17/2021 01/14/2022 Climacteric 03/29/2012 05/08/2015 Enlargement of lymph nodes 06/12/200807/01 ANXIETY REACTION 08/31/2005 07/01/2009 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 07/01/2009 Closed Colles' fracture 05/09/2003 07/01/20 09 Unspecified essential hypertension 02/19/2003 07/01/2009 documented as of this encounter (statuses as of 02/18/2023) [address]04-2022 History of Past illness Narrative* Problem Noted Date Resolved Date Diabetes mellitus 11/17/2021 01/14/2022 Climacteric 03/29/2012 05/08/2015 Enlargement of lymph nodes 06/12/200807/01 ANXIETY REACTION 08/31/2005 07/01/2009 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 07/01/2009 Closed Colles' fracture 05/09/2003 07/01/20 09 Unspecified essential hypertension 02/19/2003 07/01/2009 documented as of this encounter (statuses as of 02/19/2023) [address]04-2022 History of Past illness Narrative* Problem Noted Date Resolved Date Diabetes mellitus 11/17/2021 01/14/2022 Climacteric 03/29/2012 05/08/2015 Enlargement of lymph nodes 06/12/200807/01 ANXIETY REACTION 08/31/2005 07/01/2009 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 07/01/2009 Closed Colles' fracture 05/09/2003 07/01/20 Unspecified essential hypertension 02/19/2003 07/01/2009 documented as of this encounter (statuses as of 02/19/2023) [address]04-2022 History of Past illness Narrative* Problem Noted Date Diagnosed Date Resolved Date Diabetes mellitus 11/17/2021 01/14/2022 Climacteric 03/29/2012 05/08/2015 Enlargement of lymph nodes 06/12/200808/31/2008 ANXIETY REACTION 08/31/2005 07/01/2009 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 07/01/2009 Closed Colles' fracture 05/09/200306/16 Unspecified essential hypertension 02/19/2003 07/01/2009 documented as of this encounter (statuses as of 02/23/2023) [address]04-2022 History of Past illness Narrative* Problem Noted Date Diagnosed Date Resolved Date Diabetes mellitus 11/17/2021 01/14/2022 Climacteric 03/29/2012 05/08/2015 Enlargement of lymph nodes 06/12/200808/31/2008 ANXIETY REACTION 08/31/2005 07/01/2009 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 07/01/2009 Closed Colles' fracture 05/09/200306/16 Unspecified essential hypertension 02/19/2003 07/01/2009 documented as of this encounter (statuses as of 02/24/2023) [address]04-2022 History of Past illness Narrative* Problem Noted Date Diagnosed Date Resolved Date Diabetes mellitus 11/17/2021 01/14/2022 Climacteric 03/29/2012 05/08/2015 Enlargement of lymph nodes 06/12/200808/31/2008 ANXIETY REACTION 08/31/2005 07/01/2009 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 07/01/2009 Closed Colles' fracture 05/09/200306/16 Unspecified essential hypertension 02/19/2003 07/01/2009 documented as of this encounter (statuses as of 02/25/2023) [address]04-2022 History of Past illness Narrative* Problem Noted Date Diagnosed Date Resolved Date Diabetes mellitus 11/17/2021 01/14/2022 Climacteric 03/29/2012 05/08/2015 Enlargement of lymph nodes 06/12/200808/31/2008 ANXIETY REACTION 08/31/2005 07/01/2009 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 07/01/2009 Closed Colles' fracture 05/09/200306/16 Unspecified essential hypertension 02/19/2003 07/01/2009 documented as of this encounter (statuses as of 02/26/2023) [place] [address]-04-2022 History of Past illness Narrative* Problem Noted Date Diagnosed Date Resolved Date Diabetes mellitus 11/17/2021 01/14/2022 Climacteric 03/29/2012 05/08/2015 Enlargement of lymph nodes 06/12/200808/31/2008 ANXIETY REACTION 08/31/2005 07/01/2009 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 07/01/2009 Closed Colles' fracture 05/09/200306/16 Unspecified essential hypertension 02/19/2003 07/01/2009 documented as of this encounter (statuses as of 03/02/2023) [place] [address]-04-[address]22 History of Past illness Narrative* Problem Noted Date Diagnosed Date Resolved Date Diabetes mellitus 11/17/2021 01/14/2022 Climacteric 03/29/2012 05/08/2015 Enlargement of lymph nodes 06/12/200808/31/2008 ANXIETY REACTION 08/31/2005 07/01/2009 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 07/01/2009 Closed Colles' fracture 05/09/200306/16 Unspecified essential hypertension 02/19/2003 07/01/2009 documented as of this encounter (statuses as of 03/04/2023) [address]04-2022 History of Past illness Narrative* Problem Noted Date Diagnosed Date Resolved Date Diabetes mellitus 11/17/2021 01/14/2022 Climacteric 03/29/2012 05/08/2015 Enlargement of lymph nodes 06/12/200808/31/2008 ANXIETY REACTION 08/31/2005 07/01/2009 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 07/01/2009 Closed Colles' fracture 05/09/200306/16 Unspecified essential hypertension 02/19/2003 07/01/2009 documented as of this encounter (statuses as of 03/11/2023) [address]04-2022 History of Past illness Narrative* Problem Noted Date Diagnosed Date Resolved Date Diabetes mellitus 11/17/2021 01/14/2022 Climacteric 03/29/2012 05/08/2015 Enlargement of lymph nodes 06/12/200808/31/2008 ANXIETY REACTION 08/31/2005 07/01/2009 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 07/01/2009 Closed Colles' fracture 05/09/200306/16 Unspecified essential hypertension 02/19/2003 07/01/2009 documented as of this encounter (statuses as of 03/15/2023) [address]04-2022 History of Past illness Narrative* Problem Noted Date Diagnosed Date Resolved Date Diabetes mellitus 11/17/2021 01/14/2022 Climacteric 03/29/2012 05/08/2015 Enlargement of lymph nodes 06/12/200808/31/2008 ANXIETY REACTION 08/31/2005 07/01/2009 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 07/01/2009 Closed Colles' fracture 05/09/200306/16 Unspecified essential hypertension 02/19/2003 07/01/2009 documented as of this encounter (statuses as of 03/17/2023) [address]04-2022 History of Past illness Narrative* Problem Noted Date Diagnosed Date Resolved Date Diabetes mellitus 11/17/2021 01/14/2022 Climacteric 03/29/2012 05/08/2015 Enlargement of lymph nodes 06/12/200808/31/2008 ANXIETY REACTION 08/31/2005 07/01/2009 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 07/01/2009 Closed Colles' fracture 05/09/200306/16 Unspecified essential hypertension 02/19/2003 07/01/2009 documented as of this encounter (statuses as of 03/18/2023) [address]04-2022 History of Past illness Narrative* Problem Noted Date Diagnosed Date Resolved Date Diabetes mellitus 11/17/2021 01/14/2022 Climacteric 03/29/2012 05/08/2015 Enlargement of lymph nodes 06/12/200808/31/2008 ANXIETY REACTION 08/31/2005 07/01/2009 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 07/01/2009 Closed Colles' fracture 05/09/200306/16 Unspecified essential hypertension 02/19/2003 07/01/2009 documented as of this encounter (statuses as of 03/22/2023) [address]04-2022 History of Past illness Narrative* Problem Noted Date Diagnosed Date Resolved Date Diabetes mellitus 11/17/2021 01/14/2022 Climacteric 03/29/2012 05/08/2015 Enlargement of lymph nodes 06/12/200808/31/2008 ANXIETY REACTION 08/31/2005 07/01/2009 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 07/01/2009 Closed Colles' fracture 05/09/200306/16 Unspecified essential hypertension 02/19/2003 07/01/2009 documented as of this encounter (statuses as of 03/23/2023) [address]04-2022 History of Past illness Narrative* Problem Noted Date Diagnosed Date Resolved Date Diabetes mellitus 11/17/2021 01/14/2022 Climacteric 03/29/2012 05/08/2015 Enlargement of lymph nodes 06/12/200808/31/2008 ANXIETY REACTION 08/31/2005 07/01/2009 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 07/01/2009 Closed Colles' fracture 05/09/200306/16 Unspecified essential hypertension 02/19/2003 07/01/2009 documented as of this encounter (statuses as of 03/23/2023) [address]04-2022 History of Past illness Narrative* Problem Noted Date Diagnosed Date Resolved Date Diabetes mellitus 11/17/2021 01/14/2022 Climacteric 03/29/2012 05/08/2015 Enlargement of lymph nodes 06/12/200808/31/2008 ANXIETY REACTION 08/31/2005 07/01/2009 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 07/01/2009 Closed Colles' fracture 05/09/200306/16 Unspecified essential hypertension 02/19/2003 07/01/2009 documented as of this encounter (statuses as of 03/23/2023) [address]04-2022 History of Past illness Narrative* Problem Noted Date Diagnosed Date Resolved Date Diabetes mellitus 11/17/2021 01/14/2022 Climacteric 03/29/2012 05/08/2015 Enlargement of lymph nodes 06/12/200808/31/2008 ANXIETY REACTION 08/31/2005 07/01/2009 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 07/01/2009 Closed Colles' fracture 05/09/200306/16 Unspecified essential hypertension 02/19/2003 07/01/2009 documented as of this encounter (statuses as of 04/02/2023) [place] [address]04-[address]22 History of Past illness Narrative* Problem Noted Date Diagnosed Date Resolved Date Diabetes mellitus 11/17/2021 01/14/2022 Climacteric 03/29/2012 05/08/2015 Enlargement of lymph nodes 06/12/200808/31/2008 ANXIETY REACTION 08/31/2005 07/01/2009 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 07/01/2009 Closed Colles' fracture 05/09/200306/16 Unspecified essential hypertension 02/19/2003 07/01/2009 documented as of this encounter (statuses as of 04/05/2023) [facility]04-04-2022 History of Past illness Narrative* Problem Noted Date Diagnosed Date Resolved Date Diabetes mellitus 11/17/2021 01/14/2022 Climacteric 03/29/2012 05/08/2015 Enlargement of lymph nodes 06/12/200808/31/2008 ANXIETY REACTION 08/31/2005 07/01/2009 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 07/01/2009 Closed Colles' fracture 05/09/200306/16 Unspecified essential hypertension 02/19/2003 07/01/2009 documented as of this encounter (statuses as of 04/05/2023) [address]04-2022 History of Past illness Narrative* Problem Noted Date Diagnosed Date Resolved Date Diabetes mellitus 11/17/2021 01/14/2022 Climacteric 03/29/2012 05/08/2015 Enlargement of lymph nodes 06/12/200808/31/2008 ANXIETY REACTION 08/31/2005 07/01/2009 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 07/01/2009 Closed Colles' fracture 05/09/200306/16 Unspecified essential hypertension 02/19/2003 07/01/2009 documented as of this encounter (statuses as of 04/06/2023) [address]04-2022 History of Past illness Narrative* Problem Noted Date Diagnosed Date Resolved Date Diabetes mellitus 11/17/2021 01/14/2022 Climacteric 03/29/2012 05/08/2015 Enlargement of lymph nodes 06/12/200808/31/2008 ANXIETY REACTION 08/31/2005 07/01/2009 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 07/01/2009 Closed Colles' fracture 05/09/200306/16 Unspecified essential hypertension 02/19/2003 07/01/2009 documented as of this encounter (statuses as of 04/07/2023) [address]04-2022 History of Past illness Narrative* Problem Noted Date Diagnosed Date Resolved Date Diabetes mellitus 11/17/2021 01/14/2022 Climacteric 03/29/2012 05/08/2015 Enlargement of lymph nodes 06/12/200808/31/2008 ANXIETY REACTION 08/31/2005 07/01/2009 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 07/01/2009 Closed Colles' fracture 05/09/200306/16 Unspecified essential hypertension 02/19/2003 07/01/2009 documented as of this encounter (statuses as of 04/07/2023) [address]04-2022 History of Past illness Narrative* Problem Noted Date Diagnosed Date Resolved Date Diabetes mellitus 11/17/2021 01/14/2022 Climacteric 03/29/2012 05/08/2015 Enlargement of lymph nodes 06/12/200808/31/2008 ANXIETY REACTION 08/31/2005 07/01/2009 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 07/01/2009 Closed Colles' fracture 05/09/200306/16 Unspecified essential hypertension 02/19/2003 07/01/2009 documented as of this encounter (statuses as of 04/09/2023) [address]04-2022 History of Past illness Narrative* Problem Noted Date Diagnosed Date Resolved Date Diabetes mellitus 11/17/2021 01/14/2022 Climacteric 03/29/2012 05/08/2015 Enlargement of lymph nodes 06/12/200808/31/2008 ANXIETY REACTION 08/31/2005 07/01/2009 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 07/01/2009 Closed Colles' fracture 05/09/200306/16 Unspecified essential hypertension 02/19/2003 07/01/2009 documented as of this encounter (statuses as of 04/09/2023) [address]04-2022 History of Past illness Narrative* Problem Noted Date Diagnosed Date Resolved Date Diabetes mellitus 11/17/2021 01/14/2022 Climacteric 03/29/2012 05/08/2015 Enlargement of lymph nodes 06/12/200808/31/2008 ANXIETY REACTION 08/31/2005 07/01/2009 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 07/01/2009 Closed Colles' fracture 05/09/200306/16 Unspecified essential hypertension 02/19/2003 07/01/2009 documented as of this encounter (statuses as of 04/22/2023) [address]04-2022 History of Past illness Narrative* Problem Noted Date Diagnosed Date Resolved Date Diabetes mellitus 11/17/2021 01/14/2022 Climacteric 03/29/2012 05/08/2015 Enlargement of lymph nodes 06/12/200808/31/2008 ANXIETY REACTION 08/31/2005 07/01/2009 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 07/01/2009 Closed Colles' fracture 05/09/200306/16 Unspecified essential hypertension 02/19/2003 07/01/2009 documented as of this encounter (statuses as of 04/27/2023) [address]04-2022 History of Past illness Narrative* Problem Noted Date Diagnosed Date Resolved Date Diabetes mellitus 11/17/2021 01/14/2022 Climacteric 03/29/2012 05/08/2015 Enlargement of lymph nodes 06/12/200808/31/2008 ANXIETY REACTION 08/31/2005 07/01/2009 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 07/01/2009 Closed Colles' fracture 05/09/200306/16 Unspecified essential hypertension 02/19/2003 07/01/2009 documented as of this encounter (statuses as of 04/28/2023) [address]04-2022 History of Past illness Narrative* Problem Noted Date Diagnosed Date Resolved Date Diabetes mellitus 11/17/2021 01/14/2022 Climacteric 03/29/2012 05/08/2015 Enlargement of lymph nodes 06/12/200808/31/2008 ANXIETY REACTION 08/31/2005 07/01/2009 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 07/01/2009 Closed Colles' fracture 05/09/200306/16 Unspecified essential hypertension 02/19/2003 07/01/2009 documented as of this encounter (statuses as of 04/29/2023) [facility]04-04-2022 History of Past illness Narrative* Problem Noted Date Diagnosed Date Resolved Date Diabetes mellitus 11/17/2021 01/14/2022 Climacteric 03/29/2012 05/08/2015 Enlargement of lymph nodes 06/12/200808/31/2008 ANXIETY REACTION 08/31/2005 07/01/2009 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 07/01/2009 Closed Colles' fracture 05/09/200306/16 Unspecified essential hypertension 02/19/2003 07/01/2009 documented as of this encounter (statuses as of 04/29/2023) [facility]04-04-2022 History of Past illness Narrative* Problem Noted Date Diagnosed Date Resolved Date Diabetes mellitus 11/17/2021 01/14/2022 Climacteric 03/29/2012 05/08/2015 Enlargement of lymph nodes 06/12/200808/31/2008 ANXIETY REACTION 08/31/2005 07/01/2009 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 07/01/2009 Closed Colles' fracture 05/09/200306/16 Unspecified essential hypertension 02/19/2003 07/01/2009 documented as of this encounter (statuses as of 05/06/2023) [address]04-2022 History of Past illness Narrative* Problem Noted Date Diagnosed Date Resolved Date Diabetes mellitus 11/17/2021 01/14/2022 Climacteric 03/29/2012 05/08/2015 Enlargement of lymph nodes 06/12/200808/31/2008 ANXIETY REACTION 08/31/2005 07/01/2009 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 07/01/2009 Closed Colles' fracture 05/09/200306/16 Unspecified essential hypertension 02/19/2003 07/01/2009 documented as of this encounter (statuses as of 05/16/2023) [address]04-2022 History of Past illness Narrative* Problem Noted Date Diagnosed Date Resolved Date Diabetes mellitus 11/17/2021 01/14/2022 Climacteric 03/29/2012 05/08/2015 Enlargement of lymph nodes 06/12/200808/31/2008 ANXIETY REACTION 08/31/2005 07/01/2009 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 07/01/2009 Closed Colles' fracture 05/09/200306/16 Unspecified essential hypertension 02/19/2003 07/01/2009 documented as of this encounter (statuses as of 05/19/2023) [address]04-2022 History of Past illness Narrative* Problem Noted Date Diagnosed Date Resolved Date Diabetes mellitus 11/17/2021 01/14/2022 Climacteric 03/29/2012 05/08/2015 Enlargement of lymph nodes 06/12/200808/31/2008 ANXIETY REACTION 08/31/2005 07/01/2009 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 07/01/2009 Closed Colles' fracture 05/09/200306/16 Unspecified essential hypertension 02/19/2003 07/01/2009 documented as of this encounter (statuses as of 05/25/2023) [address]04-2022 History of Past illness Narrative* Problem Noted Date Diagnosed Date Resolved Date Diabetes mellitus 11/17/2021 01/14/2022 Climacteric 03/29/2012 05/08/2015 Enlargement of lymph nodes 06/12/200808/31/2008 ANXIETY REACTION 08/31/2005 07/01/2009 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 07/01/2009 Closed Colles' fracture 05/09/200306/16 Unspecified essential hypertension 02/19/2003 07/01/2009 documented as of this encounter (statuses as of 06/10/2023) [address]04-2022 History of Past illness Narrative* Problem Noted Date Diagnosed Date Resolved Date Diabetes mellitus 11/17/2021 01/14/2022 Climacteric 03/29/2012 05/08/2015 Enlargement of lymph nodes 06/12/200808/31/2008 ANXIETY REACTION 08/31/2005 07/01/2009 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 07/01/2009 Closed Colles' fracture 05/09/200306/16 Unspecified essential hypertension 02/19/2003 07/01/2009 documented as of this encounter (statuses as of 06/11/2023) [address]04-2022 History of Past illness Narrative* Problem Noted Date Diagnosed Date Resolved Date Diabetes mellitus 11/17/2021 01/14/2022 Climacteric 03/29/2012 05/08/2015 Enlargement of lymph nodes 06/12/200808/31/2008 ANXIETY REACTION 08/31/2005 07/01/2009 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 07/01/2009 Closed Colles' fracture 05/09/200306/16 Unspecified essential hypertension 02/19/2003 07/01/2009 documented as of this encounter (statuses as of 06/14/2023) [address]04-2022 History of Past illness Narrative* Problem Noted Date Diagnosed Date Resolved Date Diabetes mellitus 11/17/2021 01/14/2022 Climacteric 03/29/2012 05/08/2015 Enlargement of lymph nodes 06/12/200808/31/2008 ANXIETY REACTION 08/31/2005 07/01/2009 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 07/01/2009 Closed Colles' fracture 05/09/200306/16 Unspecified essential hypertension 02/19/2003 07/01/2009 documented as of this encounter (statuses as of 06/15/2023) [address]04-2022 History of Past illness Narrative* Problem Noted Date Diagnosed Date Resolved Date Diabetes mellitus 11/17/2021 01/14/2022 Climacteric 03/29/2012 05/08/2015 Enlargement of lymph nodes 06/12/200808/31/2008 ANXIETY REACTION 08/31/2005 07/01/2009 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 07/01/2009 Closed Colles' fracture 05/09/200306/16 Unspecified essential hypertension 02/19/2003 07/01/2009 documented as of this encounter (statuses as of 06/15/2023) [facility]04-04-2022 History of Past illness Narrative* Problem Noted Date Diagnosed Date Resolved Date Diabetes mellitus 11/17/2021 01/14/2022 Climacteric 03/29/2012 05/08/2015 Enlargement of lymph nodes 06/12/200808/31/2008 ANXIETY REACTION 08/31/2005 07/01/2009 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 07/01/2009 Closed Colles' fracture 05/09/200306/16 Unspecified essential hypertension 02/19/2003 07/01/2009 documented as of this encounter (statuses as of 06/19/2023) [facility]04-04-2022 History of Past illness Narrative* Problem Noted Date Diagnosed Date Resolved Date Diabetes mellitus 11/17/2021 01/14/2022 Climacteric 03/29/2012 05/08/2015 Enlargement of lymph nodes 06/12/200808/31/2008 ANXIETY REACTION 08/31/2005 07/01/2009 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 07/01/2009 Closed Colles' fracture 05/09/200306/16 Unspecified essential hypertension 02/19/2003 07/01/2009 documented as of this encounter (statuses as of 06/20/2023) [facility]04-04-2022 History of Past illness Narrative* Problem Noted Date Diagnosed Date Resolved Date Diabetes mellitus 11/17/2021 01/14/2022 Climacteric 03/29/2012 05/08/2015 Enlargement of lymph nodes 06/12/200808/31/2008 ANXIETY REACTION 08/31/2005 07/01/2009 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 07/01/2009 Closed Colles' fracture 05/09/200306/16 Unspecified essential hypertension 02/19/2003 07/01/2009 documented as of this encounter (statuses as of 06/20/2023) [address]04-2022 History of Past illness Narrative* Problem Noted Date Diagnosed Date Resolved Date Diabetes mellitus 11/17/2021 01/14/2022 Climacteric 03/29/2012 05/08/2015 Enlargement of lymph nodes 06/12/200808/31/2008 ANXIETY REACTION 08/31/2005 07/01/2009 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 07/01/2009 Closed Colles' fracture 05/09/200306/16 Unspecified essential hypertension 02/19/2003 07/01/2009 documented as of this encounter (statuses as of 06/20/2023) [address]04-2022 History of Past illness Narrative* Problem Noted Date Diagnosed Date Resolved Date Diabetes mellitus 11/17/2021 01/14/2022 Climacteric 03/29/2012 05/08/2015 Enlargement of lymph nodes 06/12/200808/31/2008 ANXIETY REACTION 08/31/2005 07/01/2009 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 07/01/2009 Closed Colles' fracture 05/09/200306/16 Unspecified essential hypertension 02/19/2003 07/01/2009 documented as of this encounter (statuses as of 06/24/2023) [address]04-2022 History of Past illness Narrative* Problem Noted Date Diagnosed Date Resolved Date Diabetes mellitus 11/17/2021 01/14/2022 Climacteric 03/29/2012 05/08/2015 Enlargement of lymph nodes 06/12/200808/31/2008 ANXIETY REACTION 08/31/2005 07/01/2009 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 07/01/2009 Closed Colles' fracture 05/09/200306/16 Unspecified essential hypertension 02/19/2003 07/01/2009 documented as of this encounter (statuses as of 06/24/2023) [address]04-2022 History of Past illness Narrative* Problem Noted Date Diagnosed Date Resolved Date Diabetes mellitus 11/17/2021 01/14/2022 Climacteric 03/29/2012 05/08/2015 Enlargement of lymph nodes 06/12/200808/31/2008 ANXIETY REACTION 08/31/2005 07/01/2009 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 07/01/2009 Closed Colles' fracture 05/09/200306/16 Unspecified essential hypertension 02/19/2003 07/01/2009 documented as of this encounter (statuses as of 07/02/2023) [address]04-2022 History of Past illness Narrative* Problem Noted Date Diagnosed Date Resolved Date Diabetes mellitus 11/17/2021 01/14/2022 Climacteric 03/29/2012 05/08/2015 Enlargement of lymph nodes 06/12/2008 1 08/31/2008 ANXIETY REACTION 08/31/2005 07/01/2009 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 07/01/2009 Closed Colles' fracture 05/09/200306/16 Unspecified essential hypertension 02/19/2003 07/01/2009 documented as of this encounter (statuses as of 07/21/2023) [address]04-2022 History of Past illness Narrative* Problem Noted Date Diagnosed Date Resolved Date Diabetes mellitus 11/17/2021 01/14/2022 Climacteric 03/29/2012 05/08/2015 Enlargement of lymph nodes 06/12/200808/31/2008 ANXIETY REACTION 08/31/2005 07/01/2009 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 07/01/2009 Closed Colles' fracture 05/09/200306/16 Unspecified essential hypertension 02/19/2003 07/01/2009 documented as of this encounter (statuses as of 07/21/2023) [address]04-2022 History of Past illness Narrative* Problem Noted Date Diagnosed Date Resolved Date Diabetes mellitus 11/17/2021 01/14/2022 Climacteric 03/29/2012 05/08/2015 Enlargement of lymph nodes 06/12/200808/31/2008 ANXIETY REACTION 08/31/2005 07/01/2009 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 07/01/2009 Closed Colles' fracture 05/09/200306/16 Unspecified essential hypertension 02/19/2003 07/01/2009 documented as of this encounter (statuses as of 07/22/2023) [address]04-2022 History of Past illness Narrative* Problem Noted Date Diagnosed Date Resolved Date Diabetes mellitus 11/17/2021 01/14/2022 Climacteric 03/29/2012 05/08/2015 Enlargement of lymph nodes 06/12/200808/31/2008 ANXIETY REACTION 08/31/2005 07/01/2009 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 07/01/2009 Closed Colles' fracture 05/09/200306/16 Unspecified essential hypertension 02/19/2003 07/01/2009 documented as of this encounter (statuses as of 07/23/2023) [facility]04-04-2022 History of Past illness Narrative* Problem Noted Date Diagnosed Date Resolved Date Diabetes mellitus 11/17/2021 01/14/2022 Climacteric 03/29/2012 05/08/2015 Enlargement of lymph nodes 06/12/200808/31/2008 ANXIETY REACTION 08/31/2005 07/01/2009 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 07/01/2009 Closed Colles' fracture 05/09/200306/16 Unspecified essential hypertension 02/19/2003 07/01/2009 documented as of this encounter (statuses as of 07/23/2023) [facility]04-04-2022 History of Past illness Narrative* Problem Noted Date Diagnosed Date Resolved Date Diabetes mellitus 11/17/2021 01/14/2022 Climacteric 03/29/2012 05/08/2015 Enlargement of lymph nodes 06/12/200808/31/2008 ANXIETY REACTION 08/31/2005 07/01/2009 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 07/01/2009 Closed Colles' fracture 05/09/200306/16 Unspecified essential hypertension 02/19/2003 07/01/2009 documented as of this encounter (statuses as of 07/26/2023) [address]04-2022 History of Past illness Narrative* Problem Noted Date Diagnosed Date Resolved Date Diabetes mellitus 11/17/2021 01/14/2022 Climacteric 03/29/2012 05/08/2015 Enlargement of lymph nodes 06/12/200808/31/2008 ANXIETY REACTION 08/31/2005 07/01/2009 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 07/01/2009 Closed Colles' fracture 05/09/200306/16 Unspecified essential hypertension 02/19/2003 07/01/2009 documented as of this encounter (statuses as of 08/04/2023) [address]04-2022 History of Past illness Narrative* Problem Noted Date Diagnosed Date Resolved Date Diabetes mellitus 11/17/2021 01/14/2022 Climacteric 03/29/2012 05/08/2015 Enlargement of lymph nodes 06/12/200808/31/2008 ANXIETY REACTION 08/31/2005 07/01/2009 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 07/01/2009 Closed Colles' fracture 05/09/200306/16 Unspecified essential hypertension 02/19/2003 07/01/2009 documented as of this encounter (statuses as of 08/30/2023) [address]04-2022 History of Past illness Narrative* Problem Noted Date Diagnosed Date Resolved Date Diabetes mellitus 11/17/2021 01/14/2022 Climacteric 03/29/2012 05/08/2015 Enlargement of lymph nodes 06/12/200808/31/2008 ANXIETY REACTION 08/31/2005 07/01/2009 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 07/01/2009 Closed Colles' fracture 05/09/200306/16 Unspecified essential hypertension 02/19/2003 07/01/2009 documented as of this encounter (statuses as of 09/23/2023) [address]04-2022 History of Past illness Narrative* Problem Noted Date Diagnosed Date Resolved Date Diabetes mellitus 11/17/2021 01/14/2022 Climacteric 03/29/2012 05/08/2015 Enlargement of lymph nodes 06/12/200808/31/2008 ANXIETY REACTION 08/31/2005 07/01/2009 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 07/01/2009 Closed Colles' fracture 05/09/200306/16 Unspecified essential hypertension 02/19/2003 07/01/2009 documented as of this encounter (statuses as of 09/30/2023) [address]04-2022 History of Past illness Narrative* Problem Noted Date Diagnosed Date Resolved Date Diabetes mellitus 11/17/2021 01/14/2022 Climacteric 03/29/2012 05/08/2015 Enlargement of lymph nodes 06/12/200808/31/2008 ANXIETY REACTION 08/31/2005 07/01/2009 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 07/01/2009 Closed Colles' fracture 05/09/200306/16 Unspecified essential hypertension 02/19/2003 07/01/2009 documented as of this encounter (statuses as of 10/01/2023) [address]04-2022 History of Past illness Narrative* Problem Noted Date Diagnosed Date Resolved Date Diabetes mellitus 11/17/2021 01/14/2022 Climacteric 03/29/2012 05/08/2015 Enlargement of lymph nodes 06/12/200808/31/2008 ANXIETY REACTION 08/31/2005 07/01/2009 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 07/01/2009 Closed Colles' fracture 05/09/200306/16 Unspecified essential hypertension 02/19/2003 07/01/2009 documented as of this encounter (statuses as of 10/02/2023) [address]04-2022 History of Past illness Narrative* Problem Noted Date Diagnosed Date Resolved Date Diabetes mellitus 11/17/2021 01/14/2022 Climacteric 03/29/2012 05/08/2015 Enlargement of lymph nodes 06/12/200808/31/2008 ANXIETY REACTION 08/31/2005 07/01/2009 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 07/01/2009 Closed Colles' fracture 05/09/200306/16 Unspecified essential hypertension 02/19/2003 07/01/2009 documented as of this encounter (statuses as of 10/02/2023) [address]04-2022 History of Past illness Narrative* Problem Noted Date Diagnosed Date Resolved Date Diabetes mellitus 11/17/2021 01/14/2022 Climacteric 03/29/2012 05/08/2015 Enlargement of lymph nodes 06/12/200808/31/2008 ANXIETY REACTION 08/31/2005 07/01/2009 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 07/01/2009 Closed Colles' fracture 05/09/200306/16 Unspecified essential hypertension 02/19/2003 07/01/2009 documented as of this encounter (statuses as of 10/06/2023) [address]04-2022 History of Past illness Narrative* Problem Noted Date Diagnosed Date Resolved Date Diabetes mellitus 11/17/2021 01/14/2022 Climacteric 03/29/2012 05/08/2015 Enlargement of lymph nodes 06/12/200808/31/2008 ANXIETY REACTION 08/31/2005 07/01/2009 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 07/01/2009 Closed Colles' fracture 05/09/200306/16 Unspecified essential hypertension 02/19/2003 07/01/2009 documented as of this encounter (statuses as of 10/07/2023) [address]04-[address]22 History of Past illness Narrative* Problem Noted Date Diagnosed Date Resolved Date Diabetes mellitus 11/17/2021 01/14/2022 Climacteric 03/29/2012 05/08/2015 Enlargement of lymph nodes 06/12/200808/31/2008 ANXIETY REACTION 08/31/2005 07/01/2009 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 07/01/2009 Closed Colles' fracture 05/09/200306/16 Unspecified essential hypertension 02/19/2003 07/01/2009 documented as of this encounter (statuses as of 10/14/2023) [facility]04-04-20[facility] History of Past illness Narrative* Problem Noted Date Diagnosed Date Resolved Date Diabetes mellitus 11/17/2021 01/14/2022 Climacteric 03/29/2012 05/08/2015 Enlargement of lymph nodes 06/12/200808/31/2008 ANXIETY REACTION 08/31/2005 07/01/2009 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 07/01/2009 Closed Colles' fracture 05/09/200306/16 Unspecified essential hypertension 02/19/2003 07/01/2009 documented as of this encounter (statuses as of 10/20/2023) [address]04-2022 History of Past illness Narrative* Problem Noted Date Diagnosed Date Resolved Date Diabetes mellitus 11/17/2021 01/14/2022 Climacteric 03/29/2012 05/08/2015 Enlargement of lymph nodes 06/12/200808/31/2008 ANXIETY REACTION 08/31/2005 07/01/2009 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 07/01/2009 Closed Colles' fracture 05/09/200306/16 Unspecified essential hypertension 02/19/2003 07/01/2009 documented as of this encounter (statuses as of 10/21/2023) [address]04-2022 History of Past illness Narrative* Problem Noted Date Diagnosed Date Resolved Date Diabetes mellitus 11/17/2021 01/14/2022 Climacteric 03/29/2012 05/08/2015 Enlargement of lymph nodes 06/12/200808/31/2008 ANXIETY REACTION 08/31/2005 07/01/2009 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 07/01/2009 Closed Colles' fracture 05/09/200306/16 Unspecified essential hypertension 02/19/2003 07/01/2009 documented as of this encounter (statuses as of 10/25/2023) [address]04-[address]22 History of Past illness Narrative* Problem Noted Date Diagnosed Date Resolved Date Diabetes mellitus 11/17/2021 01/14/2022 Climacteric 03/29/2012 05/08/2015 Enlargement of lymph nodes 06/12/200808/31/2008 ANXIETY REACTION 08/31/2005 07/01/2009 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 07/01/2009 Closed Colles' fracture 05/09/200306/16 Unspecified essential hypertension 02/19/2003 07/01/2009 documented as of this encounter (statuses as of 10/29/2023) [address]04-2022 History of Past illness Narrative* Problem Noted Date Diagnosed Date Resolved Date Diabetes mellitus 11/17/2021 01/14/2022 Climacteric 03/29/2012 05/08/2015 Enlargement of lymph nodes 06/12/200808/31/2008 ANXIETY REACTION 08/31/2005 07/01/2009 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 07/01/2009 Closed Colles' fracture 05/09/200306/16 Unspecified essential hypertension 02/19/2003 07/01/2009 documented as of this encounter (statuses as of 11/02/2023) [address]04-[address]22 History of Past illness Narrative* Problem Noted Date Diagnosed Date Resolved Date Diabetes mellitus 11/17/2021 01/14/2022 Climacteric 03/29/2012 05/08/2015 Enlargement of lymph nodes 06/12/200808/31/2008 ANXIETY REACTION 08/31/2005 07/01/2009 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 07/01/2009 Closed Colles' fracture 05/09/200306/16 Unspecified essential hypertension 02/19/2003 07/01/2009 documented as of this encounter (statuses as of 11/04/2023) [address]04-[address]22 History of Past illness Narrative* Problem Noted Date Diagnosed Date Resolved Date Diabetes mellitus 11/17/2021 01/14/2022 Climacteric 03/29/2012 05/08/2015 Enlargement of lymph nodes 06/12/2008 1 08/31/2008 ANXIETY REACTION 08/31/2005 07/01/2009 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 07/01/2009 Closed Colles' fracture 05/09/200306/16 Unspecified essential hypertension 02/19/2003 07/01/2009 documented as of this encounter (statuses as of 11/05/2023) [facility]04-04-2022 Instructions* Patient Instructions* Elva Gill PA-C - 11/17/2021 1:39 PM EDT [facility] Patient Instructions for Surgery FOOD INSTRUCTIONS: NO solid food or non-clear liquids for 8 hours prior to the arrival time for your surgery. Unless you are instructed otherwise, you are allowed to drink up to 12 ounces of clear liquids (e.g. water, black tea/coffee, fruit juice without pulp, Pinky Ricah, etc.) up until 2 hours prior to the arrival time for surgery. MEDICATION INSTRUCTIONS: Prior to Surgery: Do not take the following medications for 7 days prior to surgery: - any NSAID's (e.g. Motrin, Aleve, Arthrotec, Naproxen,etc) - any herbal preparations - Aspirin or aspirin containing products Do not take any Vitamin E / multivitamins for 10-14 days before surgery You are allowed to take Tylenol if needed until the day of surgery. Continue all medications until the night prior to surgery MEDICATION INSTRUCTIONS: Day/Morning of Surgery: The following medications should be taken with sips of water: Amlodipine, flexeril, gabapentin, hydroxyzine, levothyroxine, pantoprazole, effexor, Trusopt and Timolol eye drops Tylenol, if needed for pain, can be taken on morning of surgery. Because you are going under anesthesia, you must have a responsible adult racecar driver take you home, andbe with you after surgery. You may use a ride service such as Lyft, Uber, or [id number] as longas you have a responsible adult accompanying you and taking responsibility for you. We strongly recommend a reliable adult stays with you overnight to help take care of you. If you have any questions or concerns regarding today's visit please do not hesitate to contact [facility] at [phone] or [phone], ext [phone]. Signature: Elva Elizondo Date: November 17, 2021 documented in this encounterA[facility]04-[facility] Nurse Note* Zena Rosa LPN - 11/17/2021 12:52 PM EDT Consulted by: Dr Dowd, Type of Surgery: INSERTION OF ANTERIOR SEGMENT AQUEOUS DRAINAGE DEVICE, WITHOUT EXTRAOCULAR RESERVOIR, EXTERNAL APPROACH Laterality Anesthesia Op Region Right Monitored Anesthesia Care Eye [facility] Procedure: PHACOEMULSIFICATION CATARACT IMPLANT INTRAOCULAR LENS W/O ENDOSCOPIC CYCLOPHOTOCOAGULATION Laterality Anesthesia Op Region Right Monitored Anesthesia Care Eye Procedure: OPHTHALMIC BIOMETRY BY PARTIAL COHERENCE INTERFEROMETRY W/INTRAOCULAR LENS POWER CALCULATION Laterality Anesthesia Op Region Right Monitored Anesthesia Care Eye Patient scheduled for surgery on: 11/27/21 Are you experiencing any eye pain?no Do you have a history of sleep apnea?no Do you Have a pacemaker or an ICD?no Do you or any of your family members have a history of malignant hyperthermia?no Are you an Insulin dependent Diabetic?no HCG needed?n/a Reviewed pre-admission/surgery instructions with the patient. Questions and concerns answered and any further concerns to be discussed by provider. Zena Rosa LPN documented in this encounterAultman Hospital04-[facility]22 History and physical note * Elva Gill PA-C - 11/17/2021 12:47 PM EDT HISTORY AND PHYSICAL EXAMINATION (IMPACT) SERVICE DATE: 11/17/2021 SERVICE TIME: 12:47 PM PRIMARY CARE PHYSICIAN: Eugene Sanchez MD CHIEF COMPLAINT/HISTORY OF PRESENT ILLNESS: Ms. Centeno is a 60 year old female referred to me for preoperative evaluation. My final recommendations will be communicated back to the requesting physician/surgeon by the way of the shared medical record. Referring Surgeon: Dr. Asher Dowd Date of Surgery: 11/27/2021 Planned Surgery/Procedure: insert anterior segment aqueous drain device w/o extraocular reservoir, external approach and Phacoemulsification Cataract Implant Intraocular Lens without endoscopic cyclophotocoagulation right eye Indication for Planned Surgery / Procedure: Low-tension glaucoma of right eye, severe stage MAC - [place] Refer to Assessment section for details of any comorbidities. Patient is Able to Perform the Following Physical Activity: Take care of self; that is eating, dressing, bathing, using the toilet (2.75 METs) Do yardwork, such as raking leaves, weeding,or pushing a power mower (4.50 METs) Climb a flight of stairs or walk up a hill (5.50 METs) Patient's functional class is I based on self-reported physical activity. Significant Anesthesia Considerations: None. PAST MEDICAL/SURGICAL/FAMILY/SOCIAL HISTORY PAST MEDICAL HISTORY Diagnosis Date MIGDALIA (acute kidney injury) ([facility]) Dr. Sloan Anxiety Arthritis Cataract OU Depression H/O gastric bypass Hypertension Insomnia Iron malabsorption / gastric bypass, Dr. Lindsey for infusions Meralgia paresthetica Migraine neuro-Dr. Armenta's group Osteoporosis Prediabetes Primary open angle glaucoma (POAG) of both eyes, severe stage OU PUD (peptic ulcer disease) 01/04/2013 Pure hypercholesterolemia Retinal vein occlusion of left eye 05/2019 BRVO WITH MACULAR EDEMA OS Retinal vein thrombosis 2016 Dr. Naidu Thyroid disease Traumatic brain injury ([facility]) 2 years ago and as a child, had concussions Unspecified hypothyroidism Unspecified intestinal obstruction Vitamin B12 deficiency Vitamin D deficiency PAST SURGICAL HISTORY Procedure Laterality Date COLONOSCOPY 2012 DIAGNOSIS/HISTORY 2005 LAPROSCOPIC ENTEROLYSIS DIAGNOSIS/HISTORY 2005 LAPROSCOPIC CHOLECYTECTOMY ESOPHAGOGASTRODUODENOSCOPY TRANSORAL DIAGNOSTIC 10/14/12 EGD H-pylori negative ESOPHAGOGASTRODUODENOSCOPY TRANSORAL DIAGNOSTIC 02/19/2016 EXC/DSTRJ LINGUAL TONSIL ANY METHOD SPX 1968 GASTRIC BYPASS 2004 LIG/TRNSXJ FLP TUBE ABDL/VAG APPR UNI/BI Tubal ligation PAST SURGICAL HISTORY OF 1991 Lumpectomy, right breast PAST SURGICAL HISTORY OF 2005 Bowel blockage PAST SURGICAL HISTORY OF 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 PAST SURGICAL HISTORY OF 04/15/2020 Fermur - right RHYTIDECTOMY NECK W/PLATYSMAL TIGHTENING 2007 Facelift TOTAL ABDOMINAL HYSTERECT W/WO RMVL TUBE OVARY 1991 Hysterectomy, CAT, oophorectomy FAMILY HISTORY Problem Relation Age of Onset Hypertension Mother Thyroid Mother Glaucoma Mother other (Diabetes) Mother Anxiety disorder Father Depression Father Heart Father arrythemia other (Dementia) Father Thyroid Sister Diabetes Sister Depression Brother other (Hypertension) Brother Cancer Maternal Grandfather Coronary Artery Disease Paternal Grandmother Cancer Paternal Grandmother lung cancer Coronary Artery Disease Paternal Grandfather other (Step Daughter) Daughter other (Step Son) Son other (Step Son) Son Detached Retina No Family History Macular Degen No Family History Blindness No Family History SOCIAL HISTORY Social History Tobacco Use Smoking status: Never Smoker Smokeless tobacco: Never Used Substance Use Topics Alcohol use: No Drug use: No MEDICATIONS/ALLERGIES Current Outpatient Medications Medication Sig Dispense Refill ARIPiprazole (ABILIFY) 2 mg tablet Take 1 tablet by mouth once daily. 30 tablet 0 topiramate (TOPAMAX) 100 mg tablet Take 1 tablet by mouth daily at bedtime. 30 tablet 5 hydrOXYzine pamoate (VISTARIL) 50 mg capsule Take 1 capsule by mouth three times daily as needed. 90 capsule 1 LORazepam (ATIVAN) 0.5 mg Take 1 tablet by mouth once daily as needed for up to 30 days. For up to 30 days 30 tablet 0 gabapentin (NEURONTIN) 300 mg capsule Take 1 tab (300 mg) in the AM, take 1 tab (300 mg) in the afternoon, and take 2 tabs (600 mg) at bedtime 360 capsule 1 denosumab (PROLIA) 60 mg/mL Inject 1 mL subcutaneously once every 6 months. 1 mL 1 dorzolamide (TRUSOPT) 2 % ophthalmic solution Use 1 Drop in the right eye every 12 hours. 10 mL 11 latanoprost (XALATAN) 0.005 % ophthalmic solution Use 1 Drop in both eyes daily at bedtime. 2.5 mL 11 timolol maleate (TIMOPTIC) 0.5 % ophthalmic solution Use 1 Drop in both eyes every morning. 10 mL 11 ofloxacin (OCUFLOX) 0.3 % ophthalmic solution Use 1 Drop in the right eye four times daily. For useAFTER surgery (Patient taking differently: Use 1 Drop in the right eye four times daily. For use AFTER surgery - 11/27/2021 ) 5 mL 0 difluprednate (DUREZOL) 0.05 % ophthalmic suspension Use 1 Drop in the right eye four times daily. For use in operative eye AFTER surgery. (Patient taking differently: Use 1 Drop in the right eye four times daily. For use in operative eye AFTER surgery - 11/27/2021 ) [address] (PROTONIX) 40 mg tablet Take 1 tablet by mouth twice daily. 180 tablet 1 cyclobenzaprine (FLEXERIL) 5 mg tablet Take 1 tablet by mouth three times daily as needed for muscle spasm. 90 tablet 2 venlafaxine (EFFEXOR) 75 mg tablet Take 1 tablet by mouth three times daily with meals. 90 tablet 2 atorvastatin (LIPITOR) 20 mg tablet Take 1 tablet by mouth daily at bedtime. For cholesterol. 90 tablet 0 rizatriptan (MAXALT) 10 mg tablet Take 1 tablet by mouth as needed. FOR MIGRAINE HEADACHE (SEE ADMINISTRATION INSTRUCTIONS) 27 tablet 2 amLODIPine (NORVASC) 5 mg tablet Take 1 tablet by mouth once daily. 90 tablet 1 metFORMIN (GLUCOPHAGE) 500 mg tablet Take 1 tablet by mouth daily with breakfast. 30 tablet 11 levothyroxine (SYNTHROID) 50 mcg tablet Take 1 tablet by mouth once daily. 90 tablet 1 cyanocobalamin 1,000 mcg/mL Inject 1 mL intramuscularly once every month. 1 mL 5 Syringe with Needle, Disp, 1 mL 25 gauge x 1 syrg 1 Device once every month. For vitamin B12 injection. 12 Each 0 clobetasol (TEMOVATE) 0.05 % ointment Apply 1 application to affected area as directed. 45 g 0 PREMARIN vaginal cream Use 0.5 gram vaginally once each week, as directed. 30 g 2 cholecalciferol (VITAMIN D-3) 2,000 unit tablet Take 2,000 Units by mouth once daily. folic acid/multivit-min/lutein (CENTRUM SILVER ORAL) Take by mouth. ferrous sulfate (IRON ORAL) Take 330 mg by mouth every other day. ASCORBIC ACID (VITAMIN C ORAL) Take 4,000 Units by mouth once daily. zolpidem (AMBIEN) 10 mg Take 1 tablet by mouth daily at bedtime for 60 days. 30 tablet 1 Current Facility-Administered Medications Medication Dose Route Frequency Provider Last Rate Last Admin onabotulinum toxin type A 200 Units injection (BOTOX) 200 Units OTHER q 3 MONTHS Kecia Holcomb APRN.NEON INSTALLER 200 Units at 08/05/21 0945 ALLERGIES No Known Allergies REVIEW OF SYSTEMS General: No weight loss, malaise or fevers. Neuro: Headaches Seizures Denies CVA Respiratory: No history of current cough or dyspnea, or pneumonia in the past 6 weeks. No history of respiratory/pulmonary symptoms or problems. Cardiovascular: Hypertension requiring meds, Denies chest pain. GI: No history of GI symptoms or problems. No history of esophageal varices, recent ascites, or ETOH greater than 2 drinks per day. : No history of UTI in past 6 weeks. No history of renal failure. Not currently on or requiring dialysis. No history of symptoms or problems., CKD. Denies recent UTI. HAND COMPOSITOR: No vaginal bleeding due to menopause and no abnormal vaginal discharge., LMP: s/p hysterectomy. Denies vaginal bleeding Endocrine: Hypothyroidism, Prediabetes. Denies hyperthyroidism Hematology: No history of bleeding or clotting disorder. No history of hematological symptoms or problems. Oncology: No history of CA metastasis, chemo within 30 days, or radiotherapy within 90 days. No history of oncological symptoms or problems. Psych: Anxiety, Depression, Denies ADD Skin: Negative for lesions, rash, and itching. PHYSICAL EXAM VITALS: BP 108/70 Pulse 91 Resp 18 Ht 5' 4 (1.63m) Wt 133 lb 4.8 oz (60.5kg) SpO2 100% BMI 22.87 kg/(m^2). General: Alert and oriented, No acute distress Skin: Normal color, no rash, no lesions. HEENT: EOM, pupils equal, round and reactive., No carotid bruits Cardiovascular: Normal S1 & S2, no rubs, murmurs or gallops. No JVD. Pulse regular. Lungs: Normal breath sounds, no wheezes or crackles., No chest deformities or chest wall tenderness. Abdomen: Soft, non-tender, no rigidity., No masses or organomegaly., Positive bowel sounds Extremities: No deformity, no edema or tenderness, no joint swelling or clubbing. Neurological: Normal cognition and motor skills. Gait normal. No weakness or sensory deficit. Pulses: Carotid and radial pulses normal +2. Pedal pulses normal +2. ASSESSMENT Ms. Centeno is a 60 year old female referred to me for preoperative evaluation. Patient has the following medical comorbidities which might affect the perioperative course: (R56.9) Seizure-like activity (HCC) Comment: managed on gabapentin, Vyepti and topomax - no seizure activity 10/03/2021 - follows Neurology (I10) Hypertension, unspecified type Comment: controlled on meds (Z98.84) S/P gastric bypass Comment: 07/01/2009 (E03.2) Hypothyroidism due to medication Comment: managed on levothyroxine (R73.03) Prediabetes Comment: controlled on Metformin - glucose 94 - follows PCP (K27.9) PUD (peptic ulcer disease) Comment: controlled on pantoprazole - no recent episode of GI hemorrhage or abdominal pain Patient's RCRI (Revised Cardiac Risk Index: CAD/CHF/Stroke or TIA/SCr>2/DM on Insulin/High Risk Surgery) score is 0 and is at low risk for major adverse cardiac events in the perioperative period. Diagnostic tests reviewed for today's visit: No new labs or tests All in Epic Reviewed labs PLAN/RECOMMENDATIONS CARDIAC: Patient is at optimal cardiac condition for scheduled surgery / procedure. PULMONARY: Patient is at optimal Pulmonary status for scheduled surgery / procedure. ENDOCRINE: Prediabetes Patient is optimally prepared for surgery. .Discussed anesthesia risk and pt said they understood.and agreed to proceed. Patient Instructions: As per patient instructions section. General Preoperative/Medication/Fasting Instructions I have discussed the above recommendations with the patient in detail, in holly and lay terms, and provided a written summary of instructions as needed. We have discussed that no surgery is without risk, but that the goal of preoperative assessment is to optimize that risk, and that was clearly understood by the patient. I have given ample opportunity for the patient to ask questions, and answered all questions to their stated satisfaction. SIGNATURE: Elva Elizondo PA-C PATIENT NAME: Emely Centeno DATE: November 17, 2021 TIME: 12:47 PM documented in this encounterAultman Hospital04-01-2022 Miscellaneous Notes* Telephone Encounter - Zach Rees LPN - 11/14/2021 3:30 PM EDT A follow up phone call attempted and patient was unavailable at this time. If a voicemail box was available, a message for a return phone call was left if there were any questions or concerns relatedto a recent procedure that was performed at [facility]. This message did not include any HIPAA related information. documented in this encounterAultman Hospital03-30-2022 Miscellaneous Notes* Telephone Encounter - Rubi Eden - 11/12/2021 12:25 PM EDT 1.Are you diabetic No 2. Are you on any blood thinners? No 3. Are you taking any aspirin? No 4. Have you had any recent imaging done on your body part that's being injected? No 5. Do you have any allergies to latex? No 6. Do you have any allergies to seafood? No 7. Do you have any allergies to shellfish? No 8. Do you have any allergies to x-ray dye? No 9. Are you taking Xanax for the procedure? No 10. Have you done physical therapy in the last year? Yes If yes, When and Where? [facility] (Medical Records Release needs to be signed.) 11. Were the pre-procedure instructions explained to the patient? Yes 12. Do you have a pacemaker? No 13. Do you have an internal stimulator of any kind? No If yes, please bring the remote with you to your procedure visit. 14. Have you received the COVID-19 Vaccine? Yes. If yes, date(s) received: 08/2021 (Patient should not receive a procedure including steroids 14 days prior to their first dose of theCOVID vaccine. They should not receive any procedure containing steroids in the time frame between their 1st and 2nd doses of the COVID vaccine. They should not receive a procedure containing steroids 14 days after their 2nd dose of the COVID vaccine.) Rubi Eden documented in this encounterAultman Hospital03-30-2022 Miscellaneous Notes* Telephone Encounter - Cleo Reyes - 11/12/2021 10:40 AM EDT Called patient and lvm requesting a call back to go through the injection questions. documented in this encounterAultman Hospital03-30-2022 Nurse Note* Beatriz Stephen - 11/12/2021 8:51 AM EDT Order has been placed in the patient's chart with the following parameters for discharge from the physician: Patient is alert and oriented Vitals: Diastolic/Systolic +/- 20mmHg Respirations: 12-18 Pulse: 60-100 SpO2 is greater than or equal to 90% Patient has no nausea or vomiting Patient has no dizziness Pain level is +/- 2 from initial evaluation Dressing, dry and intact with no evidence of bleeding Criteria has been met, patient is okay to be discharged per the physician. Physician has gone in and evaluated the patient. Dressing dry and intact. No drainage noted. The patient denies nausea, numbness, tingling, weakness, shortness of breath, dizziness, or headache. Pain level 2/10. Vital signs within normal limits. Patient denied needing walked out by clinical staff and denied needing a wheelchair. Patient given discharge instructions and sent to transportation via ambulatory method. Patient left in good condition. * Zach Rees LPN - 11/12/2021 8:35 AM EDT Procedure to be performed: Unilateral Right Genicular Nerve Block Patient was walked from exam room to procedure room and assisted onto the procedure tablePatient s procedure was performed in an [facility] Procedure room. Pause completed at each level by provider to verify correct level and laterality placement Pressure was applied to patient s injection site(s) and bleeding was minimal. Patient had no complaint of shortness of breath, dizziness, headache, numbness, tingling, weakness or complications from procedure. Patient was assisted from the procedure table and walked back to exam room. Patient was advised a clinician will be to obtain another set of vitals. Time Out: 0840 Confirmed patient name, date of , procedure site, laterality, and allergies Procedure Start: 842 Procedure End: 846 * Sarath Rodriguez MA - 11/12/2021 8:04 AM EDT Are you on a blood thinner: n If yes, is a hold required: n Last dose of blood thinner: n INR Result today: n Do you require a Lovenox bridge:n Are you a diabetic:n Are you/or could you be : n Are you taking Xanax for the procedure: n Are you currently on a steroid? n Are you currently on an antibiotic: n Have you had a COVID-19 vaccine in the last 14 days Or are you scheduled to receive one? n Drophammer Operator's Name: Nathan documented in this encounterAultman Hospital03-30-2022 Instructions* Patient Instructions* Beatriz Stephen - 11/12/2021 8:47 AM EDT PROCEDURE DISCHARGE INSTRUCTIONS 11/12/2021 Emely Centeno 1960 Physician: Tu Swartz MD Procedure: Shoulder/Knee/Sacroiliac/Hip joint injection Post Procedure Instructions: If sedation not given, no driving for 3 hours after the procedure., Perform activities that typically make you have pain and monitor your pain level during these activities for the next 3-4 hours., You may resume normal activities the day after the procedure, as tolerated., Apply cold compresses toinjection site if needed., If medically acceptable, take over the counter anti-inflammatories such as ibuprofen or Aleve if needed for post procedure discomfort., No hot baths, hot tubs or hot compresses for 24 hours. and Increased pain the day after the procedure may occur. If you have any of the following signs or symptoms, please call our office at Fever and/or chills Swelling and/or drainage from injection site New pain that is different than your normal pain (other than soreness at the site of the procedure) Stiff neck Shortness of breath Severe increase in pain Motor dysfunctions, such as difficulty walking, bowel or bladder dysfunction and/or incontinence Headache that is severe, light sensitive or develops when changing positions (positional headache) Nausea and/or vomiting accompanied by headache that started 24-48 hours after the procedure If you have any emergent concerns, please call 911 or go to your local emergency room. Please also contact our office to let us know you will be seeking emergency care and why. [facility] History of Present illness Narrative* Tu Swartz MD - 11/12/2021 8:20 AM EDT The Spine and Pain New Site [facility] HPI Emely Centeno is a 60 year old female who presents for right genicular nerve blocks. The patient reports that her pain from the most recent LFCN block has been as effective as it was initially. This may be due to lack of appropriate spread of medications. She may be an appropriate candidate for SPR therapy directed at this nerve, but we will attempt another nerve block with Dr. Marshall see if we can obtain similar results as the first LFCN block. Review of Systems Per nursing documentation PAST MEDICAL HISTORY Diagnosis Date MIGDALIA (acute kidney injury) ([facility]) Dr. Sloan Anxiety Arthritis Cataract OU Depression H/O gastric bypass Hypertension Insomnia Iron malabsorption /2 gastric bypass, Dr. Lindsey for infusions Meralgia paresthetica Migraine neuro-Dr. Armenta's group Osteoporosis Prediabetes Primary open angle glaucoma (POAG) of both eyes, severe stage OU PUD (peptic ulcer disease) 01/04/2013 Pure hypercholesterolemia Retinal vein occlusion of left eye 05/2019 BRVO WITH MACULAR EDEMA OS Retinal vein thrombosis 2016 Dr. Naidu Thyroid disease Traumatic brain injury (HCC) 2 years ago and as a child, had concussions Unspecified hypothyroidism Unspecified intestinal obstruction Vitamin B12 deficiency Vitamin D deficiency PAST SURGICAL HISTORY Procedure Laterality Date COLONOSCOPY 2012 DIAGNOSIS/HISTORY 2005 LAPROSCOPIC ENTEROLYSIS DIAGNOSIS/HISTORY 2005 LAPROSCOPIC CHOLECYTECTOMY ESOPHAGOGASTRODUODENOSCOPY TRANSORAL DIAGNOSTIC 10/14/12 EGD H-pylori negative ESOPHAGOGASTRODUODENOSCOPY TRANSORAL DIAGNOSTIC 02/19/2016 EXC/DSTRJ LINGUAL TONSIL ANY METHOD SPX 1968 GASTRIC BYPASS 2004 LIG/TRNSXJ FLP TUBE ABDL/VAG APPR UNI/BI Tubal ligation PAST SURGICAL HISTORY OF 1991 Lumpectomy, right breast PAST SURGICAL HISTORY OF 2005 Bowel blockage PAST SURGICAL HISTORY OF 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 PAST SURGICAL HISTORY OF 04/15/2020 Fermur - right RHYTIDECTOMY NECK W/PLATYSMAL TIGHTENING 2007 Facelift TOTAL ABDOMINAL HYSTERECT W/WO RMVL TUBE OVARY 1991 Hysterectomy, CAT, oophorectomy Family History Problem Relation Age of Onset Hypertension Mother Thyroid Mother Glaucoma Mother other (Diabetes) Mother Anxiety disorder Father Depression Father Heart Father arrythemia other (Dementia) Father Thyroid Sister Diabetes Sister Depression Brother other (Hypertension) Brother Cancer Maternal Grandfather Coronary Artery Disease Paternal Grandmother Cancer Paternal Grandmother lung cancer Coronary Artery Disease Paternal Grandfather other (Step Daughter) Daughter other (Step Son) Son other (Step Son) Son Detached Retina No Family History Macular Degen No Family History Blindness No Family History Social History Tobacco Use Smoking status: Never Smoker Smokeless tobacco: Never Used Substance Use Topics Alcohol use: No Drug use: No Current Outpatient Medications Medication Sig Dispense Refill topiramate (TOPAMAX) 100 mg tablet Take 1 tablet by mouth daily at bedtime. 30 tablet 5 hydrOXYzine pamoate (VISTARIL) 50 mg capsule Take 1 capsule by mouth three times daily as needed. 90 capsule 1 LORazepam (ATIVAN) 0.5 mg Take 1 tablet by mouth once daily as needed for up to 30 days. For up to 30 days 30 tablet 0 gabapentin (NEURONTIN) 300 mg capsule Take 1 tab (300 mg) in the AM, take 1 tab (300 mg) in the afternoon, and take 2 tabs (600 mg) at bedtime 360 capsule 1 denosumab (PROLIA) 60 mg/mL Inject 1 mL subcutaneously once every 6 months. 1 mL 1 dorzolamide (TRUSOPT) 2 % ophthalmic solution Use 1 Drop in the right eye every 12 hours. 10 mL 11 latanoprost (XALATAN) 0.005 % ophthalmic solution Use 1 Drop in both eyes daily at bedtime. 2.5 mL 11 timolol maleate (TIMOPTIC) 0.5 % ophthalmic solution Use 1 Drop in both eyes every morning. 10 mL 11 ofloxacin (OCUFLOX) 0.3 % ophthalmic solution Use 1 Drop in the right eye four times daily. For useAFTER surgery (Patient taking differently: Use 1 Drop in the right eye four times daily. For use AFTER surgery - 11/27/2021 ) 5 mL 0 difluprednate (DUREZOL) 0.05 % ophthalmic suspension Use 1 Drop in the right eye four times daily. For use in operative eye AFTER surgery. (Patient taking differently: Use 1 Drop in the right eye four times daily. For use in operative eye AFTER surgery - 11/27/2021 ) [address] (PROTONIX) 40 mg tablet Take 1 tablet by mouth twice daily. 180 tablet 1 cyclobenzaprine (FLEXERIL) 5 mg tablet Take 1 tablet by mouth three times daily as needed for muscle spasm. 90 tablet 2 venlafaxine (EFFEXOR) 75 mg tablet Take 1 tablet by mouth three times daily with meals. 90 tablet 2 zolpidem (AMBIEN) 10 mg Take 1 tablet by mouth daily at bedtime for 60 days. 30 tablet 1 atorvastatin (LIPITOR) 20 mg tablet Take 1 tablet by mouth daily at bedtime. For cholesterol. 90 tablet 0 rizatriptan (MAXALT) 10 mg tablet Take 1 tablet by mouth as needed. FOR MIGRAINE HEADACHE (SEE ADMINISTRATION INSTRUCTIONS) 27 tablet 2 amLODIPine (NORVASC) 5 mg tablet Take 1 tablet by mouth once daily. 90 tablet 1 metFORMIN (GLUCOPHAGE) 500 mg tablet Take 1 tablet by mouth daily with breakfast. 30 tablet 11 levothyroxine (SYNTHROID) 50 mcg tablet Take 1 tablet by mouth once daily. 90 tablet 1 cyanocobalamin 1,000 mcg/mL Inject 1 mL intramuscularly once every month. 1 mL 5 Syringe with Needle, Disp, 1 mL 25 gauge x 1 syrg 1 Device once every month. For vitamin B12 injection. 12 Each 0 clobetasol (TEMOVATE) 0.05 % ointment Apply 1 application to affected area as directed. 45 g 0 PREMARIN vaginal cream Use 0.5 gram vaginally once each week, as directed. 30 g 2 cholecalciferol (VITAMIN D-3) 2,000 unit tablet Take 2,000 Units by mouth once daily. folic acid/multivit-min/lutein (CENTRUM SILVER ORAL) Take by mouth. ferrous sulfate (IRON ORAL) Take 330 mg by mouth every other day. ASCORBIC ACID (VITAMIN C ORAL) Take 4,000 Units by mouth once daily. Current Facility-Administered Medications Medication Dose Route Frequency Provider Last Rate Last Admin onabotulinum toxin type A 200 Units injection (BOTOX) 200 Units OTHER q 3 MONTHS Kceia Holcomb APRN.NEON INSTALLER 200 Units at 08/05/21 0925 Attestation Information obtained by others were confirmed and edited as necessary on 11/11/2021 by Tu Swartz MD. Objective Exam: There were no vitals taken for this visit. Constitutional: normal appearance, A&O x3 Head: atraumatic, normocephalic Eyes: conjunctiva clear. Cardiovascular: appears well-perfused Pulmonary: non-labored Abdominal: non-distended Skin: no visible rashes or ecchymosis Psychiatric: mood appropriate Neurological: no focal deficits Assessment and Plan: We discussed their current plan and the pathology responsible for the patient's pain. Specific counseling related to the procedure was provided regarding the risks, benefits and alternatives. The patient wishes to proceed with the plan as follows: No diagnosis found. Time out to confirm patient name, date of , procedure site, laterality, and allergies performed by physician. Please see nursing note for exact times (time out, procedure start, procedure end). [place] protocol documentation / Pre-Procedure checklist: 1. Unless stated otherwise in the procedure note, the risks include but are not limited to infection, allergic reaction, increased pain, lack of therapeutic benefit, steroid reaction, nerve damage, paralysis, stroke, epidural hematoma, syncope, headache, respiratory or cardiac arrest, pneumothorax,and scar formation 2. Time Out was led by the physician in the procedure room, with the patient and all staff present and participating ? The following information was verified: name, date of , procedure site (marked), laterality,anticoagulants and allergies UNIVERSAL PROTOCOL / SAFETY CHECKLIST Sign In: A Moment of CARE was completed. Personnel directly involved with the procedure wore the appropriate PPE (Personal Protective Equipment). Patient/Surrogate Stated/Verified: patient name, date of , relevant allergies and intended procedure Time Out Communication: Intended patient and procedure match the source documents. Consent documented and matches the intended procedure. Sign Out: SIGN OUT (optional for EMERGENT procedures): No specimen collected. Tu Swartz MD The Spine and Pain New Site [facility] General * Sarath Rodriguez MA - 11/12/2021 8:06 AM EDT Subjective HPI Review of Systems Constitutional: Negative for chills and fever. Eyes: Negative for blurred vision and double vision. Gastrointestinal: Negative for nausea and vomiting. Genitourinary: Negative for dysuria. Musculoskeletal: Positive for back pain, joint pain and neck pain. Neurological: Positive for headaches. Negative for dizziness and tingling. Endo/Heme/Allergies: Does not bruise/bleed easily. Psychiatric/Behavioral: Positive for depression. Negative for suicidal ideas. The patient is nervous/anxious. PAST MEDICAL HISTORY Diagnosis Date MIGDALIA (acute kidney injury) (HCC) Dr. 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 Lindsey for infusions Meralgia paresthetica Migraine neuro-Dr. Armenta's group Osteoporosis Prediabetes Primary open angle glaucoma (POAG) of both eyes, severe stage OU PUD (peptic ulcer disease) 01/04/2013 Pure hypercholesterolemia Retinal vein occlusion of left eye 05/2019 BRVO WITH MACULAR EDEMA OS Retinal vein thrombosis 2016 Dr. Naidu Thyroid disease Traumatic brain injury (HCC) 2 years ago and as a child, had concussions Unspecified hypothyroidism Unspecified intestinal obstruction Vitamin B12 deficiency Vitamin D deficiency PAST SURGICAL HISTORY Procedure Laterality Date COLONOSCOPY 2012 DIAGNOSIS/HISTORY 2005 LAPROSCOPIC ENTEROLYSIS DIAGNOSIS/HISTORY 2005 LAPROSCOPIC CHOLECYTECTOMY ESOPHAGOGASTRODUODENOSCOPY TRANSORAL DIAGNOSTIC 10/14/12 EGD H-pylori negative ESOPHAGOGASTRODUODENOSCOPY TRANSORAL DIAGNOSTIC 02/19/2016 EXC/DSTRJ LINGUAL TONSIL ANY METHOD SPX 1968 GASTRIC BYPASS 2004 LIG/TRNSXJ FLP TUBE ABDL/VAG APPR UNI/BI Tubal ligation PAST SURGICAL HISTORY OF 1991 Lumpectomy, right breast PAST SURGICAL HISTORY OF 2005 Bowel blockage PAST SURGICAL HISTORY OF 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 PAST SURGICAL HISTORY OF 04/15/2020 Fermur - right RHYTIDECTOMY NECK W/PLATYSMAL TIGHTENING 2007 Facelift TOTAL ABDOMINAL HYSTERECT W/WO RMVL TUBE OVARY 1991 Hysterectomy, CAT, oophorectomy FAMILY HISTORY Problem Relation Age of Onset Hypertension Mother Thyroid Mother Glaucoma Mother other (Diabetes) Mother Anxiety disorder Father Depression Father Heart Father arrythemia other (Dementia) Father Thyroid Sister Diabetes Sister Depression Brother other (Hypertension) Brother Cancer Maternal Grandfather Coronary Artery Disease Paternal Grandmother Cancer Paternal Grandmother lung cancer Coronary Artery Disease Paternal Grandfather other (Step Daughter) Daughter other (Step Son) Son other (Step Son) Son Detached Retina No Family History Macular Degen No Family History Blindness No Family History Social History Tobacco Use Smoking status: Never Smoker Smokeless tobacco: Never Used Substance Use Topics Alcohol use: No Drug use: No Current Meds topiramate (TOPAMAX) 100 mg tablet Take 1 tablet by mouth daily at bedtime. hydrOXYzine pamoate (VISTARIL) 50 mg capsule Take 1 capsule by mouth three times daily as needed. LORazepam (ATIVAN) 0.5 mg Take 1 tablet by mouth once daily as needed for up to 30 days. For up to 30 days gabapentin (NEURONTIN) 300 mg capsule Take 1 tab (300 mg) in the AM, take 1 tab (300 mg) in the afternoon, and take 2 tabs (600 mg) at bedtime denosumab (PROLIA) 60 mg/mL Inject 1 mL subcutaneously once every 6 months. dorzolamide (TRUSOPT) 2 % ophthalmic solution Use 1 Drop in the right eye every 12 hours. latanoprost (XALATAN) 0.005 % ophthalmic solution Use 1 Drop in both eyes daily at bedtime. timolol maleate (TIMOPTIC) 0.5 % ophthalmic solution Use 1 Drop in both eyes every morning. ofloxacin (OCUFLOX) 0.3 % ophthalmic solution Use 1 Drop in the right eye four times daily. For useAFTER surgery difluprednate (DUREZOL) 0.05 % ophthalmic suspension Use 1 Drop in the right eye four times daily. For use in operative eye AFTER surgery. pantoprazole DR (PROTONIX) 40 mg tablet Take 1 tablet by mouth twice daily. cyclobenzaprine (FLEXERIL) 5 mg tablet Take 1 tablet by mouth three times daily as needed for muscle spasm. venlafaxine (EFFEXOR) 75 mg tablet Take 1 tablet by mouth three times daily with meals. atorvastatin (LIPITOR) 20 mg tablet Take 1 tablet by mouth daily at bedtime. For cholesterol. rizatriptan (MAXALT) 10 mg tablet Take 1 tablet by mouth as needed. FOR MIGRAINE HEADACHE (SEE ADMINISTRATION INSTRUCTIONS) amLODIPine (NORVASC) 5 mg tablet Take 1 tablet by mouth once daily. metFORMIN (GLUCOPHAGE) 500 mg tablet Take 1 tablet by mouth daily with breakfast. levothyroxine (SYNTHROID) 50 mcg tablet Take 1 tablet by mouth once daily. cyanocobalamin 1,000 mcg/mL Inject 1 mL intramuscularly once every month. Syringe with Needle, Disp, 1 mL 25 gauge x 1 syrg 1 Device once every month. For vitamin B12 injection. clobetasol (TEMOVATE) 0.05 % ointment Apply 1 application to affected area as directed. PREMARIN vaginal cream Use 0.5 gram vaginally once each week, as directed. cholecalciferol (VITAMIN D-3) 2,000 unit tablet Take 2,000 Units by mouth once daily. folic acid/multivit-min/lutein (CENTRUM SILVER ORAL) Take by mouth. ferrous sulfate (IRON ORAL) Take 330 mg by mouth every other day. ASCORBIC ACID (VITAMIN C ORAL) Take 4,000 Units by mouth once daily. zolpidem (AMBIEN) 10 mg Take 1 tablet by mouth daily at bedtime for 60 days. Objective LMP (LMP Unknown) Physical Exam documented in this encounterA[facility]02-23-[facility]22 Miscellaneous Notes* Telephone Encounter - Lea Rosa RN - 10/08/2021 11:36 AM EST Patient notified of results and provider's instructions. Patient verbalizes understanding. Patient would like a booklet to be mailed out in regards to meal planning. Lea Rosa RN * Telephone Encounter - Concepción Estrada LPN - 10/08/2021 10:23 AM EST TC to pt. LM to call office, ask for triage nurse to get results. Concepción Estrada LPN * Telephone Encounter - Eugene Sanchez MD - 10/08/2021 9:00 AM EST A1C remains in the prediabetic range at 6.1. Recommend low carb diet and exercise. Can mail bookletfor meal planning if patient requests. Kidney function is down compared to normal. Recommend avoidance of NSAIDs, low sodium diet <2,000 mg daily, push PO fluids. Recheck in 1-2 weeks. Protein level is low which is sign of malnutrition. Make sure to eat 3 meals per day and increase amount of protein in diet. May supplement with Boost or Ensure 1-2 times per day. documented in this encounterA[facility]09-30-[facility] Note. MICRO - Microbiology PROCEDURE: Blood Culture (fungal and bacterial) [*1] SOURCE: Blood BODY SITE: COLLECTED DATE/TIME: 04/17/2020 16:28 EDT RECEIVED DATE/TIME: 04/17/2020 17:57 EDT START DATE/TIME: 04/17/2020 17:57 EDT FREE TEXT SOURCE: FINAL REPORTS Final Report [] Verified Date/Time/Personnel: 05/15/2020 09:14 EDT Blood Culture with fungus: No growth at 4 weeks. PRELIMINARY REPORTS Preliminary Report [] Verified Date/Time/Personnel: 04/17/2020 18:59 EDT Culture has been received in lab and is no growth to date. Culture will be held for four weeks. Performing Locations *1: This test was performed at: [address], [facility] , [facility] ([place])Comment on above:Performed By: #### CBC, ADIFF, ANEU, CMP, GFR #### [address] [id number] Note. MICRO - Microbiology PROCEDURE: Culture Wound Deep Aerobe/Anaerobe w Gram Stain [*1] SOURCE: Wound (deep) BODY SITE: Leg R COLLECTED DATE/TIME: 04/15/2020 11:54 EDT RECEIVED DATE/TIME: 04/15/2020 14:25 EDT START DATE/TIME: 04/15/2020 14:26 EDT FREE TEXT SOURCE: RIGHT FEMUR NONUNION SITE FINAL REPORTS Final Report [] Verified Date/Time/Personnel: 04/22/2020 08:15 EDT No growth at 7 days. PRELIMINARY REPORTS Preliminary Report [] Verified Date/Time/Personnel: 04/16/2020 10:52 EDT No growth to date STAINS GS [] Verified Date/Time/Personnel: 04/15/2020 15:23 EDT Rare Mononuclear cells No organisms seen. Performing Locations *1: This test was performed at: [address], [address] [place] [address] ([place])Comment on above:Performed By: #### CWDP #### [address] [id number] Note. MICRO - Microbiology PROCEDURE: Culture Wound Deep Aerobe/Anaerobe w Gram Stain [*1] SOURCE: Wound (deep) BODY SITE: Leg R COLLECTED DATE/TIME: 04/15/2020 11:54 EDT RECEIVED DATE/TIME: 04/15/2020 14:23 EDT START DATE/TIME: 04/15/2020 14:23 EDT FREE TEXT SOURCE: RIGHT FEMORAL CANAL FINAL REPORTS Final Report [] Verified Date/Time/Personnel: 04/22/2020 08:15 EDT No growth at 7 days. PRELIMINARY REPORTS Preliminary Report [] Verified Date/Time/Personnel: 04/16/2020 10:50 EDT No growth to date STAINS GS [] Verified Date/Time/Personnel: 04/15/2020 15:23 EDT Rare Mononuclear cells No organisms seen. Performing Locations *1: This test was performed at: [address], [address] [place] [address] ([place])Comment on above:Performed By: #### CWDP #### [address] Note. MICRO - Microbiology PROCEDURE: Culture Tissue [*1] SOURCE: Tissue BODY SITE: Leg R COLLECTED DATE/TIME: 04/15/2020 11:54 EDT RECEIVED DATE/TIME: 04/15/2020 14:30 EDT START DATE/TIME: 04/15/2020 14:30 EDT FREE TEXT SOURCE: RIGHT FEMORAL PLATE FINAL REPORTS Final Report [] Verified Date/Time/Personnel: 04/22/2020 08:03 EDT No growth at 7 days. PRELIMINARY REPORTS Preliminary Report [] Verified Date/Time/Personnel: 04/16/2020 10:47 EDT No growth to date STAINS GS [] Verified Date/Time/Personnel: 04/15/2020 17:25 EDT No organisms seen. Performing Locations *1: This test was performed at: [address], [address] [place] [address] ([place])Comment on above:Performed By: #### CBC, ADIFF, ANEU, CMP, GFR #### [address] [id number] Note. MICRO - Microbiology PROCEDURE: Culture Tissue [*1] SOURCE: Tissue BODY SITE: Leg R COLLECTED DATE/TIME: 04/15/2020 11:54 EDT RECEIVED DATE/TIME: 04/15/2020 14:29 EDT START DATE/TIME: 04/15/2020 14:30 EDT FREE TEXT SOURCE: RIGHT LATERAL FEMUR FINAL REPORTS Final Report [] Verified Date/Time/Personnel: 04/22/2020 07:39 EDT No growth at 7 days. PRELIMINARY REPORTS Preliminary Report [] Verified Date/Time/Personnel: 04/16/2020 10:46 EDT No growth to date STAINS GS [] Verified Date/Time/Personnel: 04/15/2020 17:33 EDT Rare Polymorphonuclear cells No organisms seen. Performing Locations *1: This test was performed at: [address], [address] [place] [address] ([place])Comment on above:Performed By: #### CBC, ADIFF, ANEU, CMP, GFR #### [address] [id number] Note. MICRO - Microbiology PROCEDURE: Urine Culture [*1] SOURCE: Urine BODY SITE: COLLECTED DATE/TIME: 04/17/2020 20:28 EDT RECEIVED DATE/TIME: 04/17/2020 21:08 EDT START DATE/TIME: 04/17/2020 21:08 EDT FREE TEXT SOURCE: FINAL REPORTS Final Report [] Verified Date/Time/Personnel: 04/19/2020 07:37 EDT No growth at 48 hours. PRELIMINARY REPORTS Preliminary Report [] Verified Date/Time/Personnel: 04/18/2020 09:28 EDT No growth to date Performing Locations *1: This test was performed at: [facility] [place] [facility], [address] [place] [address], [id number]- , [facility] ([place])Comment on above:Performed By: #### CBC, ADIFF, ANEU, CMP, GFR #### [address] [id number] History of Past illness Narrative* Problem Noted Date Resolved Date Climacteric 03/29/2012 05/08/2015 Enlargement of lymph nodes 06/12/200807/01 ANXIETY REACTION 08/31/2005 07/01/2009 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 07/01/2009 Closed Colles' fracture 05/09/2003 07/01/20 09 Unspecified essential hypertension 02/19/2003 07/01/2009 documented as of this encounter (statuses as of 11/12/2021) [facility] Narrative* Problem Noted Date Resolved Date Climacteric 03/29/2012 05/08/2015 Enlargement of lymph nodes 06/12/200807/01 ANXIETY REACTION 08/31/2005 07/01/2009 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 07/01/2009 Closed Colles' fracture 05/09/2003 07/01/20 09 Unspecified essential hypertension 02/19/2003 07/01/2009 documented as of this encounter (statuses as of 11/12/2021) [facility] Narrative* Problem Noted Date Resolved Date Climacteric 03/29/2012 05/08/2015 Enlargement of lymph nodes 06/12/200807/01 ANXIETY REACTION 08/31/2005 07/01/2009 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 07/01/2009 Closed Colles' fracture 05/09/2003 07/01/20 09 Unspecified essential hypertension 02/19/2003 07/01/2009 documented as of this encounter (statuses as of 11/14/2021) [facility] Narrative* Problem Noted Date Resolved Date Climacteric 03/29/2012 05/08/2015 Enlargement of lymph nodes 06/12/200807/01 ANXIETY REACTION 08/31/2005 07/01/2009 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 07/01/2009 Closed Colles' fracture 05/09/2003 07/01/20 09 Unspecified essential hypertension 02/19/2003 07/01/2009 documented as of this encounter (statuses as of 11/14/2021) [facility] Narrative* Problem Noted Date Resolved Date Climacteric 03/29/2012 05/08/2015 Enlargement of lymph nodes 06/12/200807/01 ANXIETY REACTION 08/31/2005 07/01/2009 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 07/01/2009 Closed Colles' fracture 05/09/2003 07/01/20 09 Unspecified essential hypertension 02/19/2003 07/01/2009 documented as of this encounter (statuses as of 11/17/2021) [facility] Narrative* Problem Noted Date Resolved Date Climacteric 03/29/2012 05/08/2015 Enlargement of lymph nodes 06/12/200807/01 ANXIETY REACTION 08/31/2005 07/01/2009 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 07/01/2009 Closed Colles' fracture 05/09/2003 07/01/20 09 Unspecified essential hypertension 02/19/2003 07/01/2009 documented as of this encounter (statuses as of 11/17/2021) [facility] Narrative* Problem Noted Date Resolved Date Climacteric 03/29/2012 05/08/2015 Enlargement of lymph nodes 06/12/200807/01 ANXIETY REACTION 08/31/2005 07/01/2009 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 07/01/2009 Closed Colles' fracture 05/09/2003 07/01/20 09 Unspecified essential hypertension 02/19/2003 07/01/2009 documented as of this encounter (statuses as of 11/17/2021) [facility] Narrative* Problem Noted Date Resolved Date Climacteric 03/29/2012 05/08/2015 Enlargement of lymph nodes 06/12/200807/01 ANXIETY REACTION 08/31/2005 07/01/2009 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 07/01/2009 Closed Colles' fracture 05/09/2003 07/01/20 09 Unspecified essential hypertension 02/19/2003 07/01/2009 documented as of this encounter (statuses as of 11/19/2021) [facility] Narrative* Problem Noted Date Resolved Date Climacteric 03/29/2012 05/08/2015 Enlargement of lymph nodes 06/12/200807/01 ANXIETY REACTION 08/31/2005 07/01/2009 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 07/01/2009 Closed Colles' fracture 05/09/2003 07/01/20 09 Unspecified essential hypertension 02/19/2003 07/01/2009 documented as of this encounter (statuses as of 11/25/2021) [facility] History of Past illness Narrative* Problem Noted Date Resolved Date Climacteric 03/29/2012 05/08/2015 Enlargement of lymph nodes 06/12/200807/01 ANXIETY REACTION 08/31/2005 07/01/2009 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 07/01/2009 Closed Colles' fracture 05/09/2003 07/01/20 09 Unspecified essential hypertension 02/19/2003 07/01/2009 documented as of this encounter (statuses as of 12/01/2021) [facility] History of Past illness Narrative* Problem Noted Date Resolved Date Climacteric 03/29/2012 05/08/2015 Enlargement of lymph nodes 06/12/200807/01 ANXIETY REACTION 08/31/2005 07/01/2009 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 07/01/2009 Closed Colles' fracture 05/09/2003 07/01/20 09 Unspecified essential hypertension 02/19/2003 07/01/2009 documented as of this encounter (statuses as of 12/03/2021) [facility] History of Past illness Narrative* Problem Noted Date Resolved Date Climacteric 03/29/2012 05/08/2015 Enlargement of lymph nodes 06/12/200807/01 ANXIETY REACTION 08/31/2005 07/01/2009 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 07/01/2009 Closed Colles' fracture 05/09/2003 07/01/20 09 Unspecified essential hypertension 02/19/2003 07/01/2009 documented as of this encounter (statuses as of 12/04/2021) [facility] History of Past illness Narrative* Problem Noted Date Resolved Date Climacteric 03/29/2012 05/08/2015 Enlargement of lymph nodes 06/12/200807/01 ANXIETY REACTION 08/31/2005 07/01/2009 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 07/01/2009 Closed Colles' fracture 05/09/2003 07/01/20 09 Unspecified essential hypertension 02/19/2003 07/01/2009 documented as of this encounter (statuses as of 12/11/2021) [facility] History of Past illness Narrative* Problem Noted Date Resolved Date Climacteric 03/29/2012 05/08/2015 Enlargement of lymph nodes 06/12/200807/01 ANXIETY REACTION 08/31/2005 07/01/2009 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 07/01/2009 Closed Colles' fracture 05/09/2003 07/01/20 09 Unspecified essential hypertension 02/19/2003 07/01/2009 documented as of this encounter (statuses as of 12/15/2021) [facility] History of Past illness Narrative* Problem Noted Date Resolved Date Climacteric 03/29/2012 05/08/2015 Enlargement of lymph nodes 06/12/200807/01 ANXIETY REACTION 08/31/2005 07/01/2009 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 07/01/2009 Closed Colles' fracture 05/09/2003 07/01/20 09 Unspecified essential hypertension 02/19/2003 07/01/2009 documented as of this encounter (statuses as of 12/18/2021) [facility] History of Past illness Narrative* Problem Noted Date Resolved Date Climacteric 03/29/2012 05/08/2015 Enlargement of lymph nodes 06/12/200807/01 ANXIETY REACTION 08/31/2005 07/01/2009 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 07/01/2009 Closed Colles' fracture 05/09/2003 07/01/20 09 Unspecified essential hypertension 02/19/2003 07/01/2009 documented as of this encounter (statuses as of 12/25/2021) [facility] History of Past illness Narrative* Problem Noted Date Resolved Date Climacteric 03/29/2012 05/08/2015 Enlargement of lymph nodes 06/12/200807/01 ANXIETY REACTION 08/31/2005 07/01/2009 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 07/01/2009 Closed Colles' fracture 05/09/2003 07/01/20 09 Unspecified essential hypertension 02/19/2003 07/01/2009 documented as of this encounter (statuses as of 12/31/2021) [facility] History of Past illness Narrative* Problem Noted Date Resolved Date Climacteric 03/29/2012 05/08/2015 Enlargement of lymph nodes 06/12/200807/01 ANXIETY REACTION 08/31/2005 07/01/2009 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 07/01/2009 Closed Colles' fracture 05/09/2003 07/01/20 09 Unspecified essential hypertension 02/19/2003 07/01/2009 documented as of this encounter (statuses as of 12/31/2021) [facility] History of Past illness Narrative* Problem Noted Date Resolved Date Climacteric 03/29/2012 05/08/2015 Enlargement of lymph nodes 06/12/200807/01 ANXIETY REACTION 08/31/2005 07/01/2009 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 07/01/2009 Closed Colles' fracture 05/09/2003 07/01/20 09 Unspecified essential hypertension 02/19/2003 07/01/2009 documented as of this encounter (statuses as of 01/07/2022) [facility] History of Past illness Narrative* Problem Noted Date Resolved Date Climacteric 03/29/2012 05/08/2015 Enlargement of lymph nodes 06/12/200807/01 ANXIETY REACTION 08/31/2005 07/01/2009 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 07/01/2009 Closed Colles' fracture 05/09/2003 07/01/20 09 Unspecified essential hypertension 02/19/2003 07/01/2009 documented as of this encounter (statuses as of 01/10/2022) [facility] Traumatic arthritis of right knee- Primary Meralgia paresthetica of right side Meralgia paresthetica Low-tension glaucoma of both eyes, severe stage Low tension open-angle glaucoma Cortical senile cataract of right eye [facility] Diagnosis Meralgia paresthetica of right side- Primary Meralgia paresthetica Low-tension glaucoma of both eyes, severe stage Low tension open-angle glaucoma Cortical senile cataract of right eye [facility] Diagnosis Nuclear sclerotic cataract of both eyes- Primary Senile nuclear sclerosis Low-tension glaucoma of both eyes, severe stage Low tension open-angle glaucoma Cortical senile cataract of right eye [facility]* Diagnosis Preoperative examination- Primary Preoperative examination, unspecified Low tension glaucoma of right eye, severe stage Seizure-like activity (HCC) Other convulsions Hypertension, unspecified type S/P gastric bypass Bariatric surgery status Hypothyroidism due to medication Prediabetes Other abnormal glucose PUD (peptic ulcer disease) Peptic ulcer, unspecified site, unspecified as acute or chronic, without mention of hemorrhage, perforation, or obstruction Low-tension glaucoma of both eyes, severe stage Low tension open-angle glaucoma Cortical senile cataract of right eye [facility]* Diagnosis Major depressive disorder, recurrent episode, moderate (HCC)- Primary Major depressive disorder, recurrent episode, moderate Panic disorder with agoraphobia Agoraphobia with panic disorder Primary insomnia Persistent disorder of initiating or maintaining sleep Low-tension glaucoma of both eyes, severe stage Low tension open-angle glaucoma Cortical senile cataract of right eye Meralgia paresthetica of right side Meralgia paresthetica [facility] Diagnosis MIGDALIA (acute kidney injury) (HCC)- Primary Acute kidney failure, unspecified Prediabetes Other abnormal glucose Primary hypertension Unspecified essential hypertension Low-tension glaucoma of both eyes, severe stage Low tension open-angle glaucoma Cortical senile cataract of right eye Meralgia paresthetica of right side Meralgia paresthetica [facility] Diagnosis Chronic migraine without aura without status migrainosus, not intractable Chronic migraine without aura, without mention of intractable migraine without mention of status migrainosus Meralgia paresthetica of right side Meralgia paresthetica [facility] Diagnosis Follow-up examination after eye surgery- Primary Follow-up examination, following other surgery Meralgia paresthetica of right side Meralgia paresthetica [facility] Diagnosis Chronic pain of right lower extremity- Primary Meralgia paresthetica of right side Meralgia paresthetica Chronic post-operative pain FDC (current) use of opiate analgesic Pain in right femur Meralgia paresthetica of right side Meralgia paresthetica [facility] Diagnosis Osteoporosis, unspecified osteoporosis type, unspecified pathological fracture presence- Primary Meralgia paresthetica of right side Meralgia paresthetica [facility] Diagnosis Essential hypertension Unspecified essential hypertension [facility] Diagnosis NO SHOW- Primary [facility] Diagnosis Breast cancer screening by mammogram [facility] Diagnosis Major depressive disorder, recurrent episode, moderate (HCC)- Primary Major depressive disorder, recurrent episode, moderate Primary insomnia Persistent disorder of initiating or maintaining sleep Panic disorder with agoraphobia Agoraphobia with panic disorder [facility]* Diagnosis Intractable 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- Primary Chronic migraine without aura, with intractable migraine, so stated, without mention of status migrainosus Chronic daily headache Headache [facility] Diagnosis Primary insomnia Persistent disorder of initiating or maintaining sleep Panic disorder with agoraphobia Agoraphobia with panic disorder [facility] Diagnosis Follow-up examination after eye surgery- Primary Follow-up examination, following other surgery Low-tension glaucoma of both eyes, severe stage Low tension open-angle glaucoma [facility] Diagnosis Chronic pain of right lower extremity- Primary Meralgia paresthetica of right side Meralgia paresthetica Chronic post-operative pain 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 Pain in right femur Traumatic arthritis of right knee [facility] Diagnosis Fall, initial encounter- Primary Right hip pain Pain in joint, pelvic region and thigh Left wrist pain Pain in joint, forearm Pain of left thumb Pain in limb [facility] Diagnosis Primary osteoarthritis of first carpometacarpal joint of left hand- Primary Primary localized osteoarthrosis, hand Left wrist pain Pain in joint, forearm Pain of left thumb Pain in limb Dislocation of carpometacarpal joint of left hand, initial encounter [facility] Diagnosis Traumatic arthritis of right knee [facility] Diagnosis Traumatic arthritis of right knee- Primary Meralgia paresthetica of right side Meralgia paresthetica [facility] Diagnosis Essential hypertension Unspecified essential hypertension [facility] Diagnosis MIGDALIA (acute kidney injury) (HCC)- Primary Acute kidney failure, unspecified [facility] Diagnosis Traumatic arthritis of right knee- Primary [facility]* Diagnosis Intractable 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 Chronic migraine without aura, with intractable migraine, so stated, without mention of status migrainosus Chronic daily headache Headache [facility]* Diagnosis No-show for appointment- Primary [facility]* Diagnosis Traumatic arthritis of right knee- Primary Meralgia paresthetica of right side Meralgia paresthetica Chronic pain of right lower extremity 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 [facility]* Diagnosis Dislocation of carpometacarpal joint of left hand, initial encounter [facility] Diagnosis Low-tension glaucoma of both eyes, severe stage- Primary Low tension open-angle glaucoma Ecchymosis of eyelid [facility]* Diagnosis Traumatic arthritis of right knee- Primary Meralgia paresthetica of right side Meralgia paresthetica Chronic pain of right lower extremity [facility]* Diagnosis Traumatic arthritis of right knee- Primary Meralgia paresthetica of right side Meralgia paresthetica [facility]* Diagnosis Essential hypertension- Primary Unspecified essential hypertension Intractable 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 Chronic migraine without aura, with intractable migraine, so stated, without mention of status migrainosus Traumatic arthritis of right knee Prediabetes Other abnormal glucose Encounter for immunization Need for other specified prophylactic vaccination against single bacterial disease Pure hypercholesterolemia Seizure-like activity (HCC) Other convulsions 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, severe stage Low tension open-angle glaucoma Anxiety with depression [facility] Diagnosis Elevated liver enzymes- Primary Other nonspecific abnormal serum enzyme levels Elevated alkaline phosphatase level Other nonspecific abnormal serum enzyme levels [facility] Diagnosis Low-tension glaucoma of both eyes, severe stage- Primary 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 Unqualified visual loss, one eye [facility] Diagnosis Blood creatinine increased compared with prior measurement- Primary [facility] Diagnosis Nerve pain- Primary Neuralgia, neuritis, and radiculitis, unspecified Chronic pain of right lower extremity Traumatic arthritis of right knee [facility] Diagnosis Chronic pain of right lower extremity Traumatic arthritis of right knee [facility] Diagnosis Elevated serum creatinine- Primary Other nonspecific findings on examination of blood [facility] Diagnosis Neuropathic pain- Primary Neuralgia, neuritis, and radiculitis, unspecified Other chronic pain [facility] Diagnosis Meralgia paresthetica of right side- Primary Meralgia paresthetica Neuropathic pain Neuralgia, neuritis, and radiculitis, unspecified Other chronic pain [facility] Diagnosis Primary insomnia Persistent disorder of initiating or maintaining sleep Panic disorder with agoraphobia Agoraphobia with panic disorder [facility] noteNo assessment information availableWFisher-[facility] Work Phone: Evaluation note* Diagnosis Leg swelling- Primary Swelling of limb [facility] Diagnosis Meralgia paresthetica of right side- Primary Meralgia paresthetica [facility] Diagnosis Meralgia paresthetica of right side Meralgia paresthetica [facility]* Diagnosis Panic disorder with agoraphobia- Primary Agoraphobia with panic disorder Primary insomnia Persistent disorder of initiating or maintaining sleep Major depressive disorder, recurrent episode, moderate (HCC) Major depressive disorder, recurrent episode, moderate documented in this encounter [facility]* Diagnosis Meralgia paresthetica of right side- Primary Meralgia paresthetica [facility]* Diagnosis Chronic migraine without aura without status migrainosus, not intractable Chronic migraine without aura, without mention of intractable migraine without mention of status migrainosus [facility] Diagnosis Chronic pain of right lower extremity Traumatic arthritis of right knee [facility]* Diagnosis Neuropathic pain Neuralgia, neuritis, and radiculitis, unspecified Other chronic pain [facility]* Diagnosis Seizure-like activity (HCC)- Primary Other convulsions [facility]* Diagnosis Intractable 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 Chronic migraine without aura, with intractable migraine, so stated, without mention of status migrainosus [facility] Diagnosis Neuropathic pain- Primary Neuralgia, neuritis, and radiculitis, unspecified Anxiety due to invasive procedure [facility] Diagnosis Convulsions, unspecified convulsion type (HCC)- Primary Psychogenic nonepileptic seizure [facility] Diagnosis Primary insomnia Persistent disorder of initiating or maintaining sleep Panic disorder with agoraphobia Agoraphobia with panic disorder [facility]* Diagnosis Primary insomnia Persistent disorder of initiating or maintaining sleep [facility] Diagnosis Primary insomnia- Primary Persistent disorder of initiating or maintaining sleep Panic disorder with agoraphobia Agoraphobia with panic disorder Major depressive disorder, recurrent episode, moderate (HCC) Major depressive disorder, recurrent episode, moderate [facility]* Diagnosis Meralgia paresthetica of right side- Primary Meralgia paresthetica [facility]* Diagnosis PUD (peptic ulcer disease) Peptic ulcer, unspecified site, unspecified as acute or chronic, without mention of hemorrhage, perforation, or obstruction [facility]* Diagnosis Primary insomnia Persistent disorder of initiating or maintaining sleep Panic disorder with agoraphobia Agoraphobia with panic disorder [facility] Diagnosis Anxiety with depression- Primary PTSD (post-traumatic stress disorder) Posttraumatic stress disorder [facility] Diagnosis Pain of left thumb- Primary Pain in limb Primary osteoarthritis of first carpometacarpal joint of left hand Primary localized osteoarthrosis, hand [facility]* Diagnosis Pre-op exam- Primary Preoperative examination, unspecified Transient ischemic attack Unspecified transient cerebral ischemia Seizure-like activity (HCC) Other convulsions Hypertension, unspecified type Pure hypercholesterolemia PUD (peptic ulcer disease) Peptic ulcer, unspecified site, unspecified as acute or chronic, without mention of hemorrhage, perforation, or obstruction Hypothyroidism due to medication Prediabetes Other abnormal glucose Primary osteoarthritis of first carpometacarpal joint of left hand Primary localized osteoarthrosis, hand [facility] Diagnosis BHAVIK (generalized anxiety disorder) [F41.1 (ICD-10-CM)]- Primary Generalized anxiety disorder Primary insomnia Persistent disorder of initiating or maintaining sleep Panic disorder with agoraphobia Agoraphobia with panic disorder Major depressive disorder, recurrent episode, moderate (HCC) Major depressive disorder, recurrent episode, moderate [facility] Diagnosis Primary osteoarthritis of first carpometacarpal joint of left hand- Primary Primary localized osteoarthrosis, hand Primary osteoarthritis of first carpometacarpal joint of left hand Primary localized osteoarthrosis, hand [facility]* Diagnosis Essential hypertension- Primary Unspecified essential hypertension Anemia, unspecified type Prediabetes Other abnormal glucose Falls frequently Personal history of fall Pure hypercholesterolemia Encounter for screening mammogram for breast cancer Hypothyroidism due to medication Fall, initial encounter Chronic migraine without aura without status migrainosus, not intractable Chronic migraine without aura, without mention of intractable migraine without mention of status migrainosus Panic disorder with agoraphobia Agoraphobia with panic disorder Seizure-like activity (HCC) Other convulsions Low-tension glaucoma of both eyes, severe stage Low tension open-angle glaucoma Primary osteoarthritis of first carpometacarpal joint of left hand Primary localized osteoarthrosis, hand [facility] Diagnosis Generalized anxiety disorder- Primary Depression, unspecified depression type Primary osteoarthritis of first carpometacarpal joint of left hand Primary localized osteoarthrosis, hand [facility]* Diagnosis Chronic migraine without aura without status migrainosus, not intractable- Primary Chronic migraine without aura, without mention of intractable migraine without mention of status migrainosus Intractable 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 Chronic migraine without aura, with intractable migraine, so stated, without mention of status migrainosus Pre-op exam- Primary Preoperative examination, unspecified Transient ischemic attack Unspecified transient cerebral ischemia Seizure-like activity (HCC) Other convulsions Hypertension, unspecified type Pure hypercholesterolemia PUD (peptic ulcer disease) Peptic ulcer, unspecified site, unspecified as acute or chronic, without mention of hemorrhage, perforation, or obstruction Hypothyroidism due to medication Prediabetes Other abnormal glucose Primary osteoarthritis of first carpometacarpal joint of left hand Primary localized osteoarthrosis, hand [facility]* Diagnosis Nonepileptic episode (HCC)- Primary Other convulsions Primary osteoarthritis of first carpometacarpal joint of left hand Primary localized osteoarthrosis, hand [facility]* Diagnosis Primary insomnia Persistent disorder of initiating or maintaining sleep Panic disorder with agoraphobia Agoraphobia with panic disorder Primary osteoarthritis of first carpometacarpal joint of left hand Primary localized osteoarthrosis, hand [facility] Diagnosis Traumatic arthritis of right knee Primary osteoarthritis of first carpometacarpal joint of left hand Primary localized osteoarthrosis, hand [facility]* Diagnosis Falls frequently Personal history of fall [facility] Diagnosis Pain of left thumb- Primary [facility] Diagnosis Falls frequently- Primary Personal history of [facility] Diagnosis Arthritis of carpometacarpal (CMC) joint of left thumb- Primary [facility]* Diagnosis Falls frequently- Primary Personal history of fall [facility]* Diagnosis Intractable 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- Primary Chronic migraine without aura, with intractable migraine, so stated, without mention of status migrainosus [facility]* Diagnosis Primary osteoarthritis of first carpometacarpal joint of left hand- Primary Primary localized osteoarthrosis, hand [facility]* Diagnosis Falls frequently- Primary Personal history of fall [facility]* Diagnosis Falls frequently- Primary Personal history of fall [facility]* Diagnosis Arthritis of carpometacarpal (CMC) joint of left thumb- Primary [facility]* Diagnosis Primary osteoarthritis of first carpometacarpal joint of left hand- Primary Primary localized osteoarthrosis, hand [facility]* Diagnosis Memory impairment- Primary Memory loss Falls frequently Personal history of fall Seizure (HCC) Other convulsions [facility]* Diagnosis Chronic pain of right lower extremity Traumatic arthritis of right knee [facility]* Diagnosis Intractable 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 Chronic migraine without aura, with intractable migraine, so stated, without mention of status migrainosus [facility]* Diagnosis Intractable 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 Chronic migraine without aura, with intractable migraine, so stated, without mention of status migrainosus [facility]* Diagnosis Chronic pain of right lower extremity Traumatic arthritis of right knee [facility]* Diagnosis Mild episode of recurrent major depressive disorder (HCC)- Primary Primary insomnia Persistent disorder of initiating or maintaining sleep Panic disorder with agoraphobia Agoraphobia with panic disorder [facility]* Diagnosis Low-tension glaucoma of both eyes, severe stage- Primary Low tension open-angle glaucoma PCO (posterior capsular opacification), right After-cataract, unspecified [facility]* Diagnosis Falls frequently- Primary Personal history of fall [facility]* Diagnosis Fall, subsequent encounter- Primary Seizure (HCC) Other convulsions [facility]* Diagnosis Psychogenic nonepileptic seizure- Primary [facility]* Diagnosis Chronic post-operative pain- Primary Meralgia paresthetica of right side Meralgia paresthetica Traumatic arthritis of right knee Trochanteric bursitis of right hip Enthesopathy of hip region [facility]* Diagnosis Primary osteoarthritis of first carpometacarpal joint of left hand- Primary Primary localized osteoarthrosis, hand [facility] Diagnosis Mild episode of recurrent major depressive disorder (HCC)- Primary Primary insomnia Persistent disorder of initiating or maintaining sleep Panic disorder with agoraphobia Agoraphobia with panic disorder Generalized anxiety disorder [facility]* Diagnosis Essential hypertension Unspecified essential hypertension Prediabetes Other abnormal glucose [facility] Diagnosis Trochanteric bursitis of right hip- Primary Enthesopathy of hip region [facility]* Diagnosis BHAVIK (generalized anxiety disorder) [F41.1 (ICD-10-CM)]- Primary Generalized anxiety disorder Primary insomnia Persistent disorder of initiating or maintaining sleep Panic disorder with agoraphobia Agoraphobia with panic disorder Major depressive disorder, recurrent episode, moderate (HCC) Major depressive disorder, recurrent episode, moderate [facility]* Diagnosis Intractable 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- Primary Chronic migraine without aura, with intractable migraine, so stated, without mention of status migrainosus [facility]* Diagnosis Primary osteoarthritis of first carpometacarpal joint of left hand Primary localized osteoarthrosis, hand [facility]* Diagnosis Encounter for screening mammogram for breast cancer [facility]* Diagnosis Memory impairment Memory loss [facility]* Diagnosis Chronic pain of right knee- Primary Chronic pain of right lower extremity Traumatic arthritis of right knee [facility]* Diagnosis Lip swelling- Primary Diseases of lips Prediabetes Other abnormal glucose Seizure (HCC) Other convulsions BHAVIK (generalized anxiety disorder) [F41.1 (ICD-10-CM)] Generalized anxiety disorder Major depressive disorder, recurrent episode, moderate (HCC) Major depressive disorder, recurrent episode, moderate Hypertension, unspecified type Memory impairment Memory loss [facility] Diagnosis MIGDALIA (acute kidney injury) (HCC)- Primary Acute kidney failure, unspecified [facility] Diagnosis Need for vaccination- Primary Need for prophylactic vaccination and inoculation against unspecified single disease [facility] Diagnosis Chronic migraine without aura, intractable, without status migrainosus- Primary [facility] Diagnosis Chronic pain of right knee- Primary [facility] Diagnosis Need for vaccination- Primary Need for prophylactic vaccination and inoculation against unspecified single disease [facility] Diagnosis Low-tension glaucoma of both eyes, severe stage- Primary Low tension open-angle glaucoma Right posterior capsular opacification After-cataract, unspecified Prediabetes Other abnormal glucose Optic disc hemorrhage, right [facility] Diagnosis Screening for genitourinary condition Screening for other and unspecified genitourinary condition Elevated serum creatinine Other nonspecific findings on examination of blood [facility] Diagnosis Traumatic arthritis of right knee Chronic pain of right lower extremity [facility] Diagnosis Traumatic arthritis of right knee- Primary Chronic pain of right lower extremity Chronic pain of right knee Trochanteric bursitis of right hip Enthesopathy of hip region Iliotibial band syndrome of right side Other disorder of muscle, ligament, and fascia [facility] Diagnosis Trochanteric bursitis of right hip- Primary Enthesopathy of hip region Traumatic arthritis of right knee Iliotibial band syndrome of right side Other disorder of muscle, ligament, and fascia [facility] Diagnosis Plantar fasciitis- Primary Plantar fascial fibromatosis [facility] Diagnosis MIGDALIA (acute kidney injury) (HCC)- Primary Acute kidney failure, unspecified [facility] Diagnosis Pain Generalized pain Bilateral foot pain Pain in limb [facility] Diagnosis Psychogenic nonepileptic seizure- Primary Seizure (HCC) Other convulsions [facility] Diagnosis Panic disorder with agoraphobia- Primary Agoraphobia with panic disorder Primary insomnia Persistent disorder of initiating or maintaining sleep Mild episode of recurrent major depressive disorder (HCC) [facility] Diagnosis Psychogenic nonepileptic seizure- Primary [facility] Diagnosis PUD (peptic ulcer disease) Peptic ulcer, unspecified site, unspecified as acute or chronic, without mention of hemorrhage, perforation, or obstruction [facility] Diagnosis Lumbar radiculopathy- Primary Thoracic or lumbosacral neuritis or radiculitis, unspecified Degeneration of lumbar intervertebral disc Degeneration of lumbar or lumbosacral intervertebral disc Spinal stenosis of lumbar region with neurogenic claudication Spinal stenosis, lumbar region, with neurogenic claudication [facility]* Diagnosis Low-tension glaucoma of both eyes, severe stage- Primary Low tension open-angle glaucoma Right posterior capsular opacification After-cataract, unspecified Prediabetes Other abnormal glucose [facility]* Diagnosis Psychogenic nonepileptic seizure [facility]* Diagnosis Osteoporosis, unspecified osteoporosis type, unspecified pathological fracture presence- Primary [facility] Diagnosis Spinal stenosis of lumbar region with neurogenic claudication Spinal stenosis, lumbar region, with neurogenic claudication [facility]* Diagnosis Osteoporosis, unspecified osteoporosis type, unspecified pathological fracture presence- Primary [facility]* Diagnosis Mild episode of recurrent major depressive disorder (HCC)- Primary Panic disorder with agoraphobia Agoraphobia with panic disorder Primary insomnia Persistent disorder of initiating or maintaining sleep [facility] Diagnosis Lumbar radiculopathy- Primary Thoracic or lumbosacral neuritis or radiculitis, unspecified Degeneration of lumbar intervertebral disc Degeneration of lumbar or lumbosacral intervertebral disc Spinal stenosis of lumbar region with neurogenic claudication Spinal stenosis, lumbar region, with neurogenic claudication Anxiety due to invasive procedure Traumatic arthritis of right knee Chronic pain of right lower extremity [facility] Diagnosis Lumbar radiculopathy- Primary Thoracic or lumbosacral neuritis or radiculitis, unspecified Spinal stenosis of lumbar region with neurogenic claudication Spinal stenosis, lumbar region, with neurogenic claudication Lumbar radiculopathy Thoracic or lumbosacral neuritis or radiculitis, unspecified Spinal stenosis of lumbar region with neurogenic claudication Spinal stenosis, lumbar region, with neurogenic claudication [facility] Diagnosis Intractable 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- Primary Chronic migraine without aura, with intractable migraine, so stated, without mention of status migrainosus Chronic daily headache Headache Medication monitoring encounter Encounter for therapeutic drug monitoring Lumbar radiculopathy Thoracic or lumbosacral neuritis or radiculitis, unspecified Spinal stenosis of lumbar region with neurogenic claudication Spinal stenosis, lumbar region, with neurogenic claudication [facility] Diagnosis Intractable 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- Primary Chronic migraine without aura, with intractable migraine, so stated, without mention of status migrainosus Encounter for screening mammogram for breast cancer [facility] Diagnosis Prediabetes- Primary Other abnormal glucose Encounter for screening mammogram for breast cancer Vitamin B12 deficiency Other B-complex deficiencies Screening for colon cancer Special screening for malignant neoplasms, colon Anemia, unspecified type Osteoporosis, unspecified osteoporosis type, unspecified pathological fracture presence BHAVIK (generalized anxiety disorder) [F41.1 (ICD-10-CM)] Generalized anxiety disorder Major depressive disorder, recurrent episode, moderate (HCC) Major depressive disorder, recurrent episode, moderate Hypothyroidism due to medication Chronic migraine without aura without status migrainosus, not intractable Chronic migraine without aura, without mention of intractable migraine without mention of status migrainosus Seizure-like activity (HCC) Other convulsions Stage 3a chronic kidney disease (HCC) [facility]* Diagnosis Normocytic anemia- Primary Anemia, unspecified [facility] Diagnosis Chronic migraine without aura without status migrainosus, not intractable- Primary Chronic migraine without aura, without mention of intractable migraine without mention of status migrainosus [facility] Diagnosis Chronic migraine without aura without status migrainosus, not intractable Chronic migraine without aura, without mention of intractable migraine without mention of status migrainosus [facility] Diagnosis Encounter for screening mammogram for breast cancer [facility]* Diagnosis Panic disorder with agoraphobia- Primary Agoraphobia with panic disorder Primary insomnia Persistent disorder of initiating or maintaining sleep Major depressive disorder, recurrent episode, moderate (HCC) Major depressive disorder, recurrent episode, moderate [facility]* Diagnosis Low-tension glaucoma of both eyes, severe stage- Primary Low tension open-angle glaucoma Right posterior capsular opacification After-cataract, unspecified [facility]* Diagnosis Lumbar radiculopathy- Primary Thoracic or lumbosacral neuritis or radiculitis, unspecified Degeneration of lumbar intervertebral disc Degeneration of lumbar or lumbosacral intervertebral disc Spinal stenosis of lumbar region with neurogenic claudication Spinal stenosis, lumbar region, with neurogenic claudication Trochanteric bursitis of right hip Enthesopathy of hip region Chronic pain of right knee Traumatic arthritis of right knee Chronic pain of right lower extremity [facility]* Diagnosis Plantar fasciitis- Primary Plantar fascial fibromatosis [facility]* Diagnosis Right posterior capsular opacification- Primary After-cataract, unspecified Low-tension glaucoma of both eyes, severe stage Low tension open-angle glaucoma [facility]* Diagnosis Primary insomnia Persistent disorder of initiating or maintaining sleep documented [facility]* Diagnosis Intractable 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- Primary Chronic migraine without aura, with intractable migraine, so stated, without mention of status migrainosus [facility]* Diagnosis Normocytic anemia Anemia, unspecified [facility]* Diagnosis Fall, subsequent encounter [facility]* Diagnosis Fall, initial encounter [facility]* Diagnosis Pain of left thumb Pain in limb Left wrist pain Pain in joint, forearm Right hip pain Pain in joint, pelvic region and thigh [facility]* Diagnosis Primary insomnia Persistent disorder of initiating or maintaining sleep Panic disorder with agoraphobia Agoraphobia with panic disorder [facility]* Diagnosis Functional neurological symptom disorder with attacks or seizures- Primary Conversion disorder [facility]* Diagnosis Major depressive disorder, recurrent episode, moderate (HCC)- Primary Major depressive disorder, recurrent episode, moderate Primary insomnia Persistent disorder of initiating or maintaining sleep Panic disorder with agoraphobia Agoraphobia with panic disorder Anxiety about health Falls Unspecified fall [facility] Diagnosis PUD (peptic ulcer disease) Peptic ulcer, unspecified site, unspecified as acute or chronic, without mention of hemorrhage, perforation, or obstruction [facility]* Diagnosis Lumbar radiculopathy- Primary Thoracic or lumbosacral neuritis or radiculitis, unspecified Degeneration of intervertebral disc of lumbar region without discogenic back pain or lower extremity pain Spinal stenosis of lumbar region with neurogenic claudication Spinal stenosis, lumbar region, with neurogenic claudication Chronic pain of right knee Lumbar spondylosis Lumbosacral spondylosis without myelopathy Traumatic arthritis of right knee Chronic pain of right lower extremity documented in this encounter [facility]* Diagnosis Osteoporosis, unspecified osteoporosis type, unspecified pathological fracture presence- Primary [facility] Diagnosis Lumbar facet arthropathy- Primary Lumbosacral spondylosis without myelopathy [facility] Diagnosis CKD (chronic kidney disease) stage 2, GFR 60-89 ml/min- Primary Chronic kidney disease, Stage II (mild) Metabolic acidosis Acidosis [facility]* Diagnosis Orthopedic device, implant, or graft complication (HCC)- Primary Other complications due to other internal orthopedic device, implant, and graft Chronic pain of right knee Post-traumatic osteoarthritis of right knee Secondary localized osteoarthrosis, lower leg [facility] Diagnosis Right knee pain, unspecified chronicity [facility] Diagnosis Traumatic arthritis of right knee- Primary [facility] Diagnosis Intractable 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- Primary Chronic migraine without aura, with intractable migraine, so stated, without mention of status migrainosus [facility]* Diagnosis Orthopedic device, implant, or graft complication (HCC) Other complications due to other internal orthopedic device, implant, and graft [facility]* Diagnosis Prediabetes- Primary Other abnormal glucose Osteoporosis, unspecified osteoporosis type, unspecified pathological fracture presence Hypothyroidism due to medication Pure hypercholesterolemia Vitamin B12 deficiency Other B-complex deficiencies Chronic migraine without aura without status migrainosus, not intractable Chronic migraine without aura, without mention of intractable migraine without mention of status migrainosus Anxiety and depression Dysthymic disorder Stage 3a chronic kidney disease (HCC) Seizure (HCC) Other convulsions [facility]* Diagnosis Chronic migraine without aura without status migrainosus, not intractable Chronic migraine without aura, without mention of intractable migraine without mention of status migrainosus [facility]* Diagnosis Lumbar facet arthropathy- Primary Lumbosacral spondylosis without myelopathy [facility]* Diagnosis Post-traumatic osteoarthritis of right knee- Primary Secondary localized osteoarthrosis, lower leg Orthopedic device, implant, or graft complication (HCC) Other complications due to other internal orthopedic device, implant, and graft [facility]* Diagnosis Lumbar spondylosis- Primary Lumbosacral spondylosis without myelopathy [facility]* Diagnosis Major depressive disorder, recurrent episode, moderate (HCC)- Primary Major depressive disorder, recurrent episode, moderate Primary insomnia Persistent disorder of initiating or maintaining sleep Panic disorder with agoraphobia Agoraphobia with panic disorder Anxiety about health Falls Unspecified fall Psychosocial stressors Other psychological or physical stress, not elsewhere classified Encounter for long-term (current) use of medications Encounter for long-term (current) use of other medications [facility]* Diagnosis Traumatic arthritis of right knee Chronic pain of right lower extremity [facility]* Diagnosis Lumbar facet arthropathy- Primary Lumbosacral spondylosis without myelopathy [facility]* Diagnosis Vitamin D deficiency- Primary Unspecified vitamin D deficiency Normocytic anemia Anemia, unspecified Pure hypercholesterolemia documented [facility]* Diagnosis Plantar fasciitis, bilateral- Primary Plantar fascial fibromatosis [facility]* Diagnosis Primary insomnia Persistent disorder of initiating or maintaining sleep [facility]* Diagnosis Traumatic arthritis of right knee Chronic pain of right lower extremity [facility]* Diagnosis Primary insomnia Persistent disorder of initiating or maintaining sleep Panic disorder with agoraphobia Agoraphobia with panic disorder [facility]* Diagnosis Primary insomnia Persistent disorder of initiating or maintaining sleep [facility]* Diagnosis Vitamin D deficiency Unspecified vitamin D deficiency [facility]* Diagnosis Major depressive disorder, recurrent episode, moderate (HCC)- Primary Major depressive disorder, recurrent episode, moderate Primary insomnia Persistent disorder of initiating or maintaining sleep Weight gain due to medication Other symptoms concerning nutrition, metabolism, and development Panic disorder with agoraphobia Agoraphobia with panic disorder Encounter for long-term (current) use of medications Encounter for long-term (current) use of other medications Psychosocial stressors Other psychological or physical stress, not elsewhere classified Trauma and stressor-related disorder Unspecified adjustment reaction [facility] Diagnosis Low-tension glaucoma of both eyes, severe stage- Primary Low tension open-angle glaucoma Combined forms of age-related cataract of left eye Other and combined forms of senile cataract Prediabetes Other abnormal glucose [facility] Diagnosis Pain in right hip- Primary Pain in joint, pelvic region and thigh Traumatic arthritis of right knee Chronic pain of right lower extremity Pain in right wrist Pain in joint, forearm [facility] Diagnosis Chronic migraine without aura without status migrainosus, not intractable Chronic migraine without aura, without mention of intractable migraine without mention of status migrainosus [facility] Diagnosis Pain in right hip Pain in joint, pelvic region and thigh Pain in right wrist Pain in joint, forearm [facility] Diagnosis Chronic migraine without aura without status migrainosus, not intractable- Primary Chronic migraine without aura, without mention of intractable migraine without mention of status migrainosus [facility]* Diagnosis Post-traumatic osteoarthritis of right knee- Primary Secondary localized osteoarthrosis, lower leg Preop examination Preoperative examination, unspecified Traumatic arthritis of right knee [facility]* Diagnosis Traumatic arthritis of right knee- Primary Traumatic arthritis of right knee [facility]* Diagnosis Primary insomnia Persistent disorder of initiating or maintaining sleep Traumatic arthritis of right knee [facility] Diagnosis Bacterial conjunctivitis- Primary Other conjunctivitis Traumatic arthritis of right knee [facility] Diagnosis Primary insomnia Persistent disorder of initiating or maintaining sleep Traumatic arthritis of right knee [facility] Diagnosis Normocytic anemia Anemia, unspecified Traumatic arthritis of right knee [facility] Diagnosis Traumatic arthritis of right knee- Primary Chronic pain of right lower extremity Pain in right hip Pain in joint, pelvic region and thigh Lumbar facet arthropathy Lumbosacral spondylosis without myelopathy Traumatic arthritis of right knee [facility] Diagnosis Primary insomnia Persistent disorder of initiating or maintaining sleep Panic disorder with agoraphobia Agoraphobia with panic disorder Traumatic arthritis of right knee [facility] Diagnosis Primary insomnia Persistent disorder of initiating or maintaining sleep Pre-operative examination- Primary Preoperative examination, unspecified Insomnia, unspecified type Intractable 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 Chronic migraine without aura, with intractable migraine, so stated, without mention of status migrainosus Seizure (HCC) Other convulsions Hypertension, unspecified type Pure hypercholesterolemia S/P gastric bypass Bariatric surgery status Hypothyroidism due to medication Other iron deficiency anemia Branch retinal vein occlusion of left eye, unspecified complication status (HCC) Osteoporosis, unspecified osteoporosis type, unspecified pathological fracture presence BHAVIK (generalized anxiety disorder) [F41.1 (ICD-10-CM)] Generalized anxiety disorder Major depressive disorder, recurrent episode, moderate (HCC) Major depressive disorder, recurrent episode, moderate H/O gastric bypass Bariatric surgery status Prediabetes Other abnormal glucose Transient ischemic attack Unspecified transient cerebral ischemia Traumatic arthritis of right knee [facility] Diagnosis Pre-operative examination- Primary Preoperative examination, unspecified Insomnia, unspecified type Intractable 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 Chronic migraine without aura, with intractable migraine, so stated, without mention of status migrainosus Seizure (HCC) Other convulsions Hypertension, unspecified type Pure hypercholesterolemia S/P gastric bypass Bariatric surgery status Hypothyroidism due to medication Other iron deficiency anemia Branch retinal vein occlusion of left eye, unspecified complication status (HCC) Osteoporosis, unspecified osteoporosis type, unspecified pathological fracture presence BHAVIK (generalized anxiety disorder) [F41.1 (ICD-10-CM)] Generalized anxiety disorder Major depressive disorder, recurrent episode, moderate (HCC) Major depressive disorder, recurrent episode, moderate H/O gastric bypass Bariatric surgery status Prediabetes Other abnormal glucose Transient ischemic attack Unspecified transient cerebral ischemia Normocytic anemia Anemia, unspecified Traumatic arthritis of right knee documented in this encounter [facility] note* Diagnosis Pre-operative examination- Primary Preoperative examination, unspecified Insomnia, unspecified type Intractable 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 Chronic migraine without aura, with intractable migraine, so stated, without mention of status migrainosus Seizure (HCC) Other convulsions Hypertension, unspecified type Pure hypercholesterolemia S/P gastric bypass Bariatric surgery status Hypothyroidism due to medication Other iron deficiency anemia Branch retinal vein occlusion of left eye, unspecified complication status (HCC) Osteoporosis, unspecified osteoporosis type, unspecified pathological fracture presence BHAVIK (generalized anxiety disorder) [F41.1 (ICD-10-CM)] Generalized anxiety disorder Major depressive disorder, recurrent episode, moderate (HCC) Major depressive disorder, recurrent episode, moderate H/O gastric bypass Bariatric surgery status Prediabetes Other abnormal glucose Transient ischemic attack Unspecified transient cerebral ischemia Prediabetes Other abnormal glucose Traumatic arthritis of right knee documented in this encounter [facility] note* Diagnosis Pre-operative examination- Primary Preoperative examination, unspecified Insomnia, unspecified type Intractable 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 Chronic migraine without aura, with intractable migraine, so stated, without mention of status migrainosus Seizure (HCC) Other convulsions Hypertension, unspecified type Pure hypercholesterolemia S/P gastric bypass Bariatric surgery status Hypothyroidism due to medication Other iron deficiency anemia Branch retinal vein occlusion of left eye, unspecified complication status (HCC) Osteoporosis, unspecified osteoporosis type, unspecified pathological fracture presence BHAVIK (generalized anxiety disorder) [F41.1 (ICD-10-CM)] Generalized anxiety disorder Major depressive disorder, recurrent episode, moderate (HCC) Major depressive disorder, recurrent episode, moderate H/O gastric bypass Bariatric surgery status Prediabetes Other abnormal glucose Transient ischemic attack Unspecified transient cerebral ischemia PUD (peptic ulcer disease) Peptic ulcer, unspecified site, unspecified as acute or chronic, without mention of hemorrhage, perforation, or obstruction Normocytic anemia Anemia, unspecified Traumatic arthritis of right knee documented in this encounter [facility] note* Diagnosis Pre-operative examination- Primary Preoperative examination, unspecified Insomnia, unspecified type Intractable 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 Chronic migraine without aura, with intractable migraine, so stated, without mention of status migrainosus Seizure (HCC) Other convulsions Hypertension, unspecified type Pure hypercholesterolemia S/P gastric bypass Bariatric surgery status Hypothyroidism due to medication Other iron deficiency anemia Branch retinal vein occlusion of left eye, unspecified complication status (HCC) Osteoporosis, unspecified osteoporosis type, unspecified pathological fracture presence BHAVIK (generalized anxiety disorder) [F41.1 (ICD-10-CM)] Generalized anxiety disorder Major depressive disorder, recurrent episode, moderate (HCC) Major depressive disorder, recurrent episode, moderate H/O gastric bypass Bariatric surgery status Prediabetes Other abnormal glucose Transient ischemic attack Unspecified transient cerebral ischemia Chronic migraine without aura without status migrainosus, not intractable- Primary Chronic migraine without aura, without mention of intractable migraine without mention of status migrainosus Intractable 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 Chronic migraine without aura, with intractable migraine, so stated, without mention of status migrainosus Traumatic arthritis of right knee [facility]* Diagnosis Pre-operative examination- Primary Preoperative examination, unspecified Insomnia, unspecified type Intractable 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 Chronic migraine without aura, with intractable migraine, so stated, without mention of status migrainosus Seizure (HCC) Other convulsions Hypertension, unspecified type Pure hypercholesterolemia S/P gastric bypass Bariatric surgery status Hypothyroidism due to medication Other iron deficiency anemia Branch retinal vein occlusion of left eye, unspecified complication status (HCC) Osteoporosis, unspecified osteoporosis type, unspecified pathological fracture presence BHAVIK (generalized anxiety disorder) [F41.1 (ICD-10-CM)] Generalized anxiety disorder Major depressive disorder, recurrent episode, moderate (HCC) Major depressive disorder, recurrent episode, moderate H/O gastric bypass Bariatric surgery status Prediabetes Other abnormal glucose Transient ischemic attack Unspecified transient cerebral ischemia Chronic migraine without aura without status migrainosus, not intractable Chronic migraine without aura, without mention of intractable migraine without mention of status migrainosus PUD (peptic ulcer disease) Peptic ulcer, unspecified site, unspecified as acute or chronic, without mention of hemorrhage, perforation, or obstruction Malabsorption of iron (HCC) Other specified intestinal malabsorption Traumatic arthritis of right knee * Assessment & Plan Note - Veronique Carrasquillo, LOG INSPECTOR.NEON INSTALLER - 12/19/2024 10:21 AM EDT Associated Problem(s): Malabsorption of iron (HCC) Assessment: 2/2 gastric bypass, daily ferrous sulfate * Assessment & Plan Note - Veronique Carrasquillo APRN.CNP - 12/19/2024 10:21 AM EDT Associated Problem(s): PUD (peptic ulcer disease) Assessment: hx, controlled on rx * Assessment & Plan Note - Veronique Carrasquillo APRN.CNP - 12/19/2024 10:21 AM EDT Associated Problem(s): Migraine Assessment: monthly AIMOVIG and rx as needed * Assessment & Plan Note - Veronique Carrasquillo APRN.CNP - 12/14/2024 11:00 AM EDT Associated Problem(s): Transient ischemic attack Assessment: hx * Assessment & Plan Note - Veronique Carrasquillo APRN.CNP - 12/14/2024 11:00 AM EDT Associated Problem(s): Prediabetes Assessment: controlled on oral agent * Assessment & Plan Note - Veronique Carrasquillo APRN.CNP - 12/14/2024 11:00 AM EDT Associated Problem(s): H/O gastric bypass Assessment: hx * Assessment & Plan Note - Veronique Carrasquillo APRN.CNP - 12/14/2024 11:00 AM EDT Associated Problem(s): Major depressive disorder, recurrent episode, moderate (HCC) Assessment: stable on rx per pt * Assessment & Plan Note - Veronique Carrasquillo APRN.CNP - 12/14/2024 10:59 AM EDT Associated Problem(s): BHAVIK (generalized anxiety disorder) [F41.1 (ICD-10-CM)] Assessment: stable on rx per pt * Assessment & Plan Note - Veronique Carrasquillo APRN.CNP - 12/14/2024 10:59 AM EDT Associated Problem(s): Osteoporosis Assessment: receiving Prolia * Assessment & Plan Note - Veronique Carrasquillo APRN.CNP - 12/14/2024 10:58 AM EDT Associated Problem(s): Retinal vein occlusion of left eye (HCC) Assessment: left eye blindness * Assessment & Plan Note - Veronique Carrasquillo APRN.CNP - 12/14/2024 10:58 AM EDT Associated Problem(s): Iron deficiency anemia Assessment: on rx Hemoglobin (g/dL) Date Value 12/14/2024 11.0 08/15/2020 11.9 Hematocrit (%) Date Value 12/14/2024 35.3 08/15/2020 39.5 WBC (k/uL) Date Value 12/14/2024 3.95 08/15/2020 3.56 * Assessment & Plan Note - Veronique Carrasquillo APRN.CNP - 12/14/2024 10:58 AM EDT Associated Problem(s): Hypothyroidism Assessment: stable on rx TSH Date Value Ref Range Status 08/11/2024 1.230 0.270 - 4.200 mIU/L Final * Assessment & Plan Note - Veronique Carrasquillo APRN.CNP - 12/14/2024 10:58 AM EDT Associated Problem(s): S/P gastric bypass Assessment: hx * Assessment & Plan Note - Veronique Carrasquillo APRN.CNP - 12/14/2024 10:58 AM EDT Associated Problem(s): Pure hypercholesterolemia Assessment: c/w statin * Assessment & Plan Note - Veronique Carrasquillo APRN.CNP - 12/14/2024 10:57 AM EDT Associated Problem(s): Hypertension Assessment: controlled on rx Last 14 BP Last 14 Encounter BP Readings: Date: BP: 12/14/2024 98/60 10/30/2024 115/81 09/26/2024 132/86 08/11/2024 116/84 07/24/2024 120/82 07/19/2024 108/76 07/18/2024 94/69 07/03/2024 119/79 04/24/2024 102/68 01/18/2024 94/68 01/17/2024 107/70 12/31/2023 114/85 09/10/2023 108/72 08/27/2023 95/61 * Assessment & Plan Note - Veronique Carrasquillo APRN.CNP - 12/14/2024 10:57 AM EDT Associated Problem(s): Seizure (HCC) Assessment: controlled on rx and ativan for rescue, following neurology at [facility] Last OV below [facility] on 10/02/2024 * Assessment & Plan Note - Veronique Carrasquillo APRN.CNP - 12/14/2024 10:54 AM EDT Associated Problem(s): Intractable 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 Assessment: controlled on rx and as needed * Assessment & Plan Note - Veronique Carrasquillo APRN.CNP - 12/14/2024 10:54 AM EDT Associated Problem(s): Insomnia Assessment: nightly [facility] Diagnosis Pre-operative examination- Primary Preoperative examination, unspecified Insomnia, unspecified type Intractable 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 Chronic migraine without aura, with intractable migraine, so stated, without mention of status migrainosus Seizure (HCC) Other convulsions Hypertension, unspecified type Pure hypercholesterolemia S/P gastric bypass Bariatric surgery status Hypothyroidism due to medication Other iron deficiency anemia Branch retinal vein occlusion of left eye, unspecified complication status (HCC) Osteoporosis, unspecified osteoporosis type, unspecified pathological fracture presence BHAVIK (generalized anxiety disorder) [F41.1 (ICD-10-CM)] Generalized anxiety disorder Major depressive disorder, recurrent episode, moderate (HCC) Major depressive disorder, recurrent episode, moderate H/O gastric bypass Bariatric surgery status Prediabetes Other abnormal glucose Transient ischemic attack Unspecified transient cerebral ischemia Chronic migraine without aura without status migrainosus, not intractable Chronic migraine without aura, without mention of intractable migraine without mention of status migrainosus PUD (peptic ulcer disease) Peptic ulcer, unspecified site, unspecified as acute or chronic, without mention of hemorrhage, perforation, or obstruction Malabsorption of iron (HCC) Other specified intestinal malabsorption Status post right knee replacement- Primary documented in this encounter [facility] note* Diagnosis Pre-operative examination- Primary Preoperative examination, unspecified Insomnia, unspecified type Intractable 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 Chronic migraine without aura, with intractable migraine, so stated, without mention of status migrainosus Seizure (HCC) Other convulsions Hypertension, unspecified type Pure hypercholesterolemia S/P gastric bypass Bariatric surgery status Hypothyroidism due to medication Other iron deficiency anemia Branch retinal vein occlusion of left eye, unspecified complication status (HCC) Osteoporosis, unspecified osteoporosis type, unspecified pathological fracture presence BHAVIK (generalized anxiety disorder) [F41.1 (ICD-10-CM)] Generalized anxiety disorder Major depressive disorder, recurrent episode, moderate (HCC) Major depressive disorder, recurrent episode, moderate H/O gastric bypass Bariatric surgery status Prediabetes Other abnormal glucose Transient ischemic attack Unspecified transient cerebral ischemia Chronic migraine without aura without status migrainosus, not intractable Chronic migraine without aura, without mention of intractable migraine without mention of status migrainosus PUD (peptic ulcer disease) Peptic ulcer, unspecified site, unspecified as acute or chronic, without mention of hemorrhage, perforation, or obstruction Malabsorption of iron (HCC) Other specified intestinal malabsorption Status post right knee replacement- Primary documented in this encounter [facility] note* Diagnosis Pre-operative examination- Primary Preoperative examination, unspecified Insomnia, unspecified type Intractable 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 Chronic migraine without aura, with intractable migraine, so stated, without mention of status migrainosus Seizure (HCC) Other convulsions Hypertension, unspecified type Pure hypercholesterolemia S/P gastric bypass Bariatric surgery status Hypothyroidism due to medication Other iron deficiency anemia Branch retinal vein occlusion of left eye, unspecified complication status (HCC) Osteoporosis, unspecified osteoporosis type, unspecified pathological fracture presence BHAVIK (generalized anxiety disorder) [F41.1 (ICD-10-CM)] Generalized anxiety disorder Major depressive disorder, recurrent episode, moderate (HCC) Major depressive disorder, recurrent episode, moderate H/O gastric bypass Bariatric surgery status Prediabetes Other abnormal glucose Transient ischemic attack Unspecified transient cerebral ischemia Chronic migraine without aura without status migrainosus, not intractable Chronic migraine without aura, without mention of intractable migraine without mention of status migrainosus PUD (peptic ulcer disease) Peptic ulcer, unspecified site, unspecified as acute or chronic, without mention of hemorrhage, perforation, or obstruction Malabsorption of iron (HCC) Other specified intestinal malabsorption Status post right knee replacement [facility] Diagnosis Pre-operative examination- Primary Preoperative examination, unspecified Insomnia, unspecified type Intractable 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 Chronic migraine without aura, with intractable migraine, so stated, without mention of status migrainosus Seizure (HCC) Other convulsions Hypertension, unspecified type Pure hypercholesterolemia S/P gastric bypass Bariatric surgery status Hypothyroidism due to medication Other iron deficiency anemia Branch retinal vein occlusion of left eye, unspecified complication status (HCC) Osteoporosis, unspecified osteoporosis type, unspecified pathological fracture presence BHAVIK (generalized anxiety disorder) [F41.1 (ICD-10-CM)] Generalized anxiety disorder Major depressive disorder, recurrent episode, moderate (HCC) Major depressive disorder, recurrent episode, moderate H/O gastric bypass Bariatric surgery status Prediabetes Other abnormal glucose Transient ischemic attack Unspecified transient cerebral ischemia Chronic migraine without aura without status migrainosus, not intractable Chronic migraine without aura, without mention of intractable migraine without mention of status migrainosus PUD (peptic ulcer disease) Peptic ulcer, unspecified site, unspecified as acute or chronic, without mention of hemorrhage, perforation, or obstruction Malabsorption of iron (HCC) Other specified intestinal malabsorption Low-tension glaucoma of both eyes, severe stage- Primary Low tension open-angle glaucoma Prediabetes Other abnormal glucose Combined forms of age-related cataract of left eye Other and combined forms of senile cataract documented in this encounter [facility] note* Diagnosis Pre-operative examination- Primary Preoperative examination, unspecified Insomnia, unspecified type Intractable 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 Chronic migraine without aura, with intractable migraine, so stated, without mention of status migrainosus Seizure (HCC) Other convulsions Hypertension, unspecified type Pure hypercholesterolemia S/P gastric bypass Bariatric surgery status Hypothyroidism due to medication Other iron deficiency anemia Branch retinal vein occlusion of left eye, unspecified complication status (HCC) Osteoporosis, unspecified osteoporosis type, unspecified pathological fracture presence BHAVIK (generalized anxiety disorder) [F41.1 (ICD-10-CM)] Generalized anxiety disorder Major depressive disorder, recurrent episode, moderate (HCC) Major depressive disorder, recurrent episode, moderate H/O gastric bypass Bariatric surgery status Prediabetes Other abnormal glucose Transient ischemic attack Unspecified transient cerebral ischemia Chronic migraine without aura without status migrainosus, not intractable Chronic migraine without aura, without mention of intractable migraine without mention of status migrainosus PUD (peptic ulcer disease) Peptic ulcer, unspecified site, unspecified as acute or chronic, without mention of hemorrhage, perforation, or obstruction Malabsorption of iron (HCC) Other specified intestinal malabsorption Intractable 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- Primary Chronic migraine without aura, with intractable migraine, so stated, without mention of status migrainosus [facility] Diagnosis Pre-operative examination- Primary Preoperative examination, unspecified Insomnia, unspecified type Intractable 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 Chronic migraine without aura, with intractable migraine, so stated, without mention of status migrainosus Seizure (HCC) Other convulsions Hypertension, unspecified type Pure hypercholesterolemia S/P gastric bypass Bariatric surgery status Hypothyroidism due to medication Other iron deficiency anemia Branch retinal vein occlusion of left eye, unspecified complication status (HCC) Osteoporosis, unspecified osteoporosis type, unspecified pathological fracture presence BHAVIK (generalized anxiety disorder) [F41.1 (ICD-10-CM)] Generalized anxiety disorder Major depressive disorder, recurrent episode, moderate (HCC) Major depressive disorder, recurrent episode, moderate H/O gastric bypass Bariatric surgery status Prediabetes Other abnormal glucose Transient ischemic attack Unspecified transient cerebral ischemia Chronic migraine without aura without status migrainosus, not intractable Chronic migraine without aura, without mention of intractable migraine without mention of status migrainosus PUD (peptic ulcer disease) Peptic ulcer, unspecified site, unspecified as acute or chronic, without mention of hemorrhage, perforation, or obstruction Malabsorption of iron (HCC) Other specified intestinal malabsorption Primary insomnia Persistent disorder of initiating or maintaining sleep Panic disorder with agoraphobia Agoraphobia with panic disorder [facility] Diagnosis Pre-operative examination- Primary Preoperative examination, unspecified Insomnia, unspecified type Intractable 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 Chronic migraine without aura, with intractable migraine, so stated, without mention of status migrainosus Seizure (HCC) Other convulsions Hypertension, unspecified type Pure hypercholesterolemia S/P gastric bypass Bariatric surgery status Hypothyroidism due to medication Other iron deficiency anemia Branch retinal vein occlusion of left eye, unspecified complication status (HCC) Osteoporosis, unspecified osteoporosis type, unspecified pathological fracture presence BHAVIK (generalized anxiety disorder) [F41.1 (ICD-10-CM)] Generalized anxiety disorder Major depressive disorder, recurrent episode, moderate (HCC) Major depressive disorder, recurrent episode, moderate H/O gastric bypass Bariatric surgery status Prediabetes Other abnormal glucose Transient ischemic attack Unspecified transient cerebral ischemia Chronic migraine without aura without status migrainosus, not intractable Chronic migraine without aura, without mention of intractable migraine without mention of status migrainosus PUD (peptic ulcer disease) Peptic ulcer, unspecified site, unspecified as acute or chronic, without mention of hemorrhage, perforation, or obstruction Malabsorption of iron (HCC) Other specified intestinal malabsorption Status post right knee replacement- Primary [facility] Diagnosis Pre-operative examination- Primary Preoperative examination, unspecified Insomnia, unspecified type Intractable 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 Chronic migraine without aura, with intractable migraine, so stated, without mention of status migrainosus Seizure (HCC) Other convulsions Hypertension, unspecified type Pure hypercholesterolemia S/P gastric bypass Bariatric surgery status Hypothyroidism due to medication Other iron deficiency anemia Branch retinal vein occlusion of left eye, unspecified complication status (HCC) Osteoporosis, unspecified osteoporosis type, unspecified pathological fracture presence BHAVIK (generalized anxiety disorder) [F41.1 (ICD-10-CM)] Generalized anxiety disorder Major depressive disorder, recurrent episode, moderate (HCC) Major depressive disorder, recurrent episode, moderate H/O gastric bypass Bariatric surgery status Prediabetes Other abnormal glucose Transient ischemic attack Unspecified transient cerebral ischemia Chronic migraine without aura without status migrainosus, not intractable Chronic migraine without aura, without mention of intractable migraine without mention of status migrainosus PUD (peptic ulcer disease) Peptic ulcer, unspecified site, unspecified as acute or chronic, without mention of hemorrhage, perforation, or obstruction Malabsorption of iron (HCC) Other specified intestinal malabsorption Status post right knee replacement documented in this encounter [facility] note* Diagnosis Pre-operative examination- Primary Preoperative examination, unspecified Insomnia, unspecified type Intractable 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 Chronic migraine without aura, with intractable migraine, so stated, without mention of status migrainosus Seizure (HCC) Other convulsions Hypertension, unspecified type Pure hypercholesterolemia S/P gastric bypass Bariatric surgery status Hypothyroidism due to medication Other iron deficiency anemia Branch retinal vein occlusion of left eye, unspecified complication status (HCC) Osteoporosis, unspecified osteoporosis type, unspecified pathological fracture presence BHAVIK (generalized anxiety disorder) [F41.1 (ICD-10-CM)] Generalized anxiety disorder Major depressive disorder, recurrent episode, moderate (HCC) Major depressive disorder, recurrent episode, moderate H/O gastric bypass Bariatric surgery status Prediabetes Other abnormal glucose Transient ischemic attack Unspecified transient cerebral ischemia Chronic migraine without aura without status migrainosus, not intractable Chronic migraine without aura, without mention of intractable migraine without mention of status migrainosus PUD (peptic ulcer disease) Peptic ulcer, unspecified site, unspecified as acute or chronic, without mention of hemorrhage, perforation, or obstruction Malabsorption of iron (HCC) Other specified intestinal malabsorption Status post right knee replacement documented in this encounter [facility] note* Diagnosis Pre-operative examination- Primary Preoperative examination, unspecified Insomnia, unspecified type Intractable 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 Chronic migraine without aura, with intractable migraine, so stated, without mention of status migrainosus Seizure (HCC) Other convulsions Hypertension, unspecified type Pure hypercholesterolemia S/P gastric bypass Bariatric surgery status Hypothyroidism due to medication Other iron deficiency anemia Branch retinal vein occlusion of left eye, unspecified complication status (HCC) Osteoporosis, unspecified osteoporosis type, unspecified pathological fracture presence BHAVIK (generalized anxiety disorder) [F41.1 (ICD-10-CM)] Generalized anxiety disorder Major depressive disorder, recurrent episode, moderate (HCC) Major depressive disorder, recurrent episode, moderate H/O gastric bypass Bariatric surgery status Prediabetes Other abnormal glucose Transient ischemic attack Unspecified transient cerebral ischemia Chronic migraine without aura without status migrainosus, not intractable Chronic migraine without aura, without mention of intractable migraine without mention of status migrainosus PUD (peptic ulcer disease) Peptic ulcer, unspecified site, unspecified as acute or chronic, without mention of hemorrhage, perforation, or obstruction Malabsorption of iron (HCC) Other specified intestinal malabsorption Mild episode of recurrent major depressive disorder- Primary Primary insomnia Persistent disorder of initiating or maintaining sleep 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 Unspecified adjustment reaction Delirium due to known physiological condition Delirium due to conditions classified elsewhere [facility] Diagnosis Pre-operative examination- Primary Preoperative examination, unspecified Insomnia, unspecified type Intractable 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 Chronic migraine without aura, with intractable migraine, so stated, without mention of status migrainosus Seizure (HCC) Other convulsions Hypertension, unspecified type Pure hypercholesterolemia S/P gastric bypass Bariatric surgery status Hypothyroidism due to medication Other iron deficiency anemia Branch retinal vein occlusion of left eye, unspecified complication status (HCC) Osteoporosis, unspecified osteoporosis type, unspecified pathological fracture presence BHAVIK (generalized anxiety disorder) [F41.1 (ICD-10-CM)] Generalized anxiety disorder Major depressive disorder, recurrent episode, moderate (HCC) Major depressive disorder, recurrent episode, moderate H/O gastric bypass Bariatric surgery status Prediabetes Other abnormal glucose Transient ischemic attack Unspecified transient cerebral ischemia Chronic migraine without aura without status migrainosus, not intractable Chronic migraine without aura, without mention of intractable migraine without mention of status migrainosus PUD (peptic ulcer disease) Peptic ulcer, unspecified site, unspecified as acute or chronic, without mention of hemorrhage, perforation, or obstruction Malabsorption of iron (HCC) Other specified intestinal malabsorption Pain in right hip- Primary Pain in joint, pelvic region and thigh Traumatic arthritis of right knee Chronic pain of right lower extremity Lumbar spondylosis Lumbosacral spondylosis without myelopathy Lumbar facet arthropathy Lumbosacral spondylosis without myelopathy [facility] Diagnostic Procedure Only (Routine) - Closed Specialty Diagnoses / Procedures Referred By Contac t Referred To Contact [facility] IMAG[facility] Diagnoses Breast cancer screening by mammogram Procedures CHUNG SCREENING SCREENING MAMMOGRAPHY BI 2-VIEW BREAST INC Ashley Vázquez MD [facility] [address] [facility] [address] [place] [address] Referral ID Status Reason Start Date Expiration Date V isits Requested Visits Authorized [id number] Closed Auto-Generated Referral Financial Clearance Not Required 12/12/2021 01/11/2023 1 1 [facility] for referral (narrative)* Diagnostic Procedure Only (Routine) - Pending Review Specialty Diagnoses / Procedures Referred By Sahara t Referred To Contact US IMAGING Diagnoses Meralgia paresthetica of right side Procedures US NERVE RT US LMTD JOINT/OTH NONVASC XTR STRUX R-T W/IMG Tu Swartz MD [address] [place] [address] [facility] Referral ID Status Reason Start Date Expiration Date Visits Requested Visits Authorized [id number] Pending Review Auto-Generat ed Referral 09/10/2022 10/10/2023 1 1 [facility] for referral (narrative)* Diagnostic Procedure Only (Routine) - Authorized Specialty Diagnoses / Procedures Referred By Sahara t Referred To Contact BR IMAGING Diagnoses Encounter for screening mammogram for breast cancer Procedures CHUNG SCREENING SCREENING MAMMOGRAPHY BI 2-VIEW BREAST INC CAD NishalogSybil baker APRN.NEON INSTALLER [address] [place] [address] [facility] Imaging [address] [place] [address] Referral ID Status Reason Start Date Expiration Date Visits Requested Visits Authorized [id number] Authorized Auto-Generat ed Referral 01/15/2023 02/14/2024 1 1 * Physical Therapy (Routine) - Pending Review Specialty Diagnoses / Procedures Referred By Sahara t Referred To Contact [facility] Diagnoses Falls frequently Procedures CONSULT TO PHYSICAL THERAPY PHYSICAL THERAPY EVALUATION HIGH COMPLEX 45 MINS Sybil Samaniego APRN.CNP [address] [place] [address] [facility] [address] [place] [address] Referral ID Status Reason Start Date Expiration Date Visits Requested Visits Authorized [id number] Pending Review Auto-Generat ed Referral 01/15/2023 01/15/2024 1 1 * Diagnostic Procedure Only (Routine) - Pending Review Specialty Diagnoses / Procedures Referred By Contac t Referred To Contact XR IMAGING Diagnoses Fall, initial encounter Procedures XR SHOULDER GENERAL 3V OR MORE AP/TRUE AP/OTHER RIGHT RADEX SHOULDER COMPLETE MINIMUM 2 VIEWS Podlogar, GITA Devine.NEON INSTALLER [address] [place] [address] X[facility] Imaging Referral ID Status Reason Start Date Expiration Date Visits Requested Visits Authorized [id number] Pending Review Auto-Generat ed Referral 01/15/2023 02/14/2024 1 1 * Diagnostic Procedure Only (Routine) - Pending Review Specialty Diagnoses / Procedures Referred By Contac t Referred To Contact XR IMAGING Diagnoses Fall, initial encounter Procedures XR LUMBAR GENERAL 3V AP/LAT/L5-S1 RADEX SPINE LUMBOSACRAL 2/3 VIEWS Podlogar, APRN. SybilNEON INSTALLER [address] [place] [address] X[facility] Imaging Referral ID Status Reason Start Date Expiration Date Visits Requested Visits Authorized [id number] Pending Review Auto-Generat ed Referral 01/15/2023 02/14/2024 1 1 * Diagnostic Procedure Only (Routine) - Pending Review Specialty Diagnoses / Procedures Referred By Contac t Referred To Contact XR IMAGING Diagnoses Fall, initial encounter Procedures XR KNEE GENERAL 4V AP BOTH/PA BOTH/LAT/MERC RIGHT RADIOLOGIC EXAM KNEE COMPLETE 4/MORE VIEWS Podlogar, GITA Devine.NEON INSTALLER [address] [place] [address] X[facility] Imaging Referral ID Status Reason Start Date Expiration Date Visits Requested Visits Authorized [id number] Pending Review Auto-Generat ed Referral 01/15/2023 02/14/2024 1 1 [facility] for referral (narrative)* Diagnostic Procedure Only (Routine) - Pending Review Specialty Diagnoses / Procedures Referred By Contac t Referred To Contact XR IMAGING Diagnoses Primary osteoarthritis of first carpometacarpal joint of left hand Procedures XR HAND GENERAL 3V PA/LAT/OBL LEFT RADEX HAND MINIMUM 3 VIEWS Dana Tejeda PA-C [address] [place] [address] Xr Imaging Referral ID Status Reason Start Date Expiration Date Visits Requested Visits Authorized [id number] Pending Review Auto-Generat ed Referral 03/02/2023 03/31/2024 1 1 [facility] for referral (narrative)* Diagnostic Procedure Only (Routine) - Closed Specialty Diagnoses / Procedures Referred By Contac t Referred To Contact XR IMAGING Diagnoses Fall, subsequent encounter Procedures XR THORACIC LIMITED 2V AP/LAT RADEX SPINE THORACIC 2 VIEWS NishalogSybil baker APRN.NEON INSTALLER [address] [place] [address] [place] [address] Referral ID Status Reason Start Date Expiration Date V isits Requested Visits Authorized [id number] Closed Auto-Generate d Referral 04/26/2023 05/25/2024 1 1 * Diagnostic Procedure Only (Routine) - Closed Specialty Diagnoses / Procedures Referred By Contac t Referred To Contact XR IMAGING Diagnoses Fall, subsequent encounter Procedures XR LUMBAR GENERAL 3V AP/LAT/L5-S1 RADEX SPINE LUMBOSACRAL 2/3 VIEWS NishalogSybil baker APRN.CNP [address] [place] [address] [place] [address] Referral ID Status Reason Start Date Expiration Date V isits Requested Visits Authorized [id number] Closed Auto-Generate d Referral 04/26/2023 05/25/2024 1 1 [facility] for referral (narrative)* Diagnostic Procedure Only (Routine) - Closed Specialty Diagnoses / Procedures Referred By Contac t Referred To Contact XR IMAGING Diagnoses Primary osteoarthritis of first carpometacarpal joint of left hand Procedures XR HAND GENERAL 3V PA/LAT/OBL LEFT RADEX HAND MINIMUM 3 VIEWS Dana Tejeda PA-C [address] [place] [address] [place] [address] Referral ID Status Reason Start Date Expiration Date V isits Requested Visits Authorized [id number] Closed Auto-Generate d Referral 03/02/2023 03/31/2024 1 1 [facility] for referral (narrative)* Diagnostic Procedure Only (Routine) - Closed Specialty Diagnoses / Procedures Referred By Contac t Referred To Contact [facility] IMAG[facility] Diagnoses Encounter for screening mammogram for breast cancer Procedures CHUNG SCREENING SCREENING MAMMOGRAPHY BI 2-VIEW BREAST INC CAD Sybil Samaniego APRN.CNP [address] [place] [address] [facility] [address] [place] [address] Referral ID Status Reason Start Date Expiration Date V isits Requested Visits Authorized [id number] Closed Auto-Generate d Referral 01/15/2023 02/14/2024 1 1 [facility] for referral (narrative)* Diagnostic Procedure Only (Routine) - Authorized Specialty Diagnoses / Procedures Referred By Contac t Referred To Contact BR IMAGING Diagnoses Encounter for screening mammogram for breast cancer Procedures CHUNG SCREENING SCREENING MAMMOGRAPHY BI 2-VIEW BREAST INC CAD Sybil Samaniego APRN.CNP [address] [place] [address] [facility] [address] [place] [address] Referral ID Status Reason Start Date Expiration Date Visits Requested Visits Authorized [id number] Authorized Auto-Generat ed Referral 01/18/2024 02/15/2025 1 1 [facility] for referral (narrative)* Diagnostic Procedure Only (Routine) - Closed Specialty Diagnoses / Procedures Referred By Contac t Referred To Contact XR IMAGING Diagnoses Fall, subsequent encounter Procedures XR THORACIC LIMITED 2V AP/LAT RADEX SPINE THORACIC 2 VIEWS Podlogar, GITA Devine.NEON INSTALLER [address] [place] [address] [place] [address] Referral ID Status Reason Start Date Expiration Date V isits Requested Visits Authorized [id number] Closed Auto-Generate d Referral 04/26/2023 05/25/2024 1 1 * Diagnostic Procedure Only (Routine) - Closed Specialty Diagnoses / Procedures Referred By Contac t Referred To Contact XR IMAGING Diagnoses Fall, subsequent encounter Procedures XR LUMBAR GENERAL 3V AP/LAT/L5-S1 RADEX SPINE LUMBOSACRAL 2/3 VIEWS Podlogar, GITA Devine.NEON INSTALLER [address] [place] [address] [place] [address] Referral ID Status Reason Start Date Expiration Date V isits Requested Visits Authorized [id number] Closed Auto-Generate d Referral 04/26/2023 05/25/2024 1 1 [facility] for referral (narrative)* Diagnostic Procedure Only (Routine) - Closed Specialty Diagnoses / Procedures Referred By Contac t Referred To Contact XR IMAGING Diagnoses Fall, initial encounter Procedures XR SHOULDER GENERAL 3V OR MORE AP/TRUE AP/OTHER RIGHT RADEX SHOULDER COMPLETE MINIMUM 2 VIEWS Podlogar, GITA Devine.NEON INSTALLER [address] [place] [address] [place] [address] Referral ID Status Reason Start Date Expiration Date V isits Requested Visits Authorized [id number] Closed Auto-Generate d Referral 01/15/2023 02/14/2024 1 1 * Diagnostic Procedure Only (Routine) - Closed Specialty Diagnoses / Procedures Referred By Contac t Referred To Contact XR IMAGING Diagnoses Fall, initial encounter Procedures XR LUMBAR GENERAL 3V AP/LAT/L5-S1 RADEX SPINE LUMBOSACRAL 2/3 VIEWS Podlogar, MICHAEL DevineN.NEON INSTALLER [address] [place] [address] [place] [address] Referral ID Status Reason Start Date Expiration Date V isits Requested Visits Authorized [id number] Closed Auto-Generate d Referral 01/15/2023 02/14/2024 1 1 * Diagnostic Procedure Only (Routine) - Closed Specialty Diagnoses / Procedures Referred By Contac t Referred To Contact XR IMAGING Diagnoses Fall, initial encounter Procedures XR KNEE GENERAL 4V AP BOTH/PA BOTH/LAT/MERC RIGHT RADIOLOGIC EXAM KNEE COMPLETE 4/MORE VIEWS Podlogar, GITA Devine.NEON INSTALLER [address] [place] [address] [place] [address] Referral ID Status Reason Start Date Expiration Date V isits Requested Visits Authorized [id number] Closed Auto-Generate d Referral 01/15/2023 02/14/2024 1 1 [facility] for referral (narrative)* Diagnostic Procedure Only (Urgent) - Closed Specialty Diagnoses / Procedures Referred By Contac t Referred To Contact XR IMAGING Diagnoses Right hip pain Procedures XR HIP GENERAL 3V PELV/AP/LAT RIGHT RADEX HIP UNILATERAL WITH PELVIS 2-3 VIEWS Podlogar, GITA Devine.NEON INSTALLER [address] [place] [address] [place] [address] Referral ID Status Reason Start Date Expiration Date V isits Requested Visits Authorized [id number] Closed Auto-Generate d Referral 02/20/2022 03/22/2023 1 1 * Diagnostic Procedure Only (Urgent) - Closed Specialty Diagnoses / Procedures Referred By Contac t Referred To Contact XR IMAGING Diagnoses Left wrist pain Procedures XR WRIST GENERAL 3V PA/LAT/OBL LEFT RADEX WRIST COMPLETE MINIMUM 3 VIEWS Podlogar, MICHAEL DevineN.NEON INSTALLER [address] [place] [address] [place] [address] Referral ID Status Reason Start Date Expiration Date V isits Requested Visits Authorized [id number] Closed Auto-Generate d Referral 02/20/2022 03/22/2023 1 1 * Diagnostic Procedure Only (Urgent) - Closed Specialty Diagnoses / Procedures Referred By Contac t Referred To Contact XR IMAGING Diagnoses Pain of left thumb Procedures XR DIGIT GENERAL 3V FRONTAL/LAT/OBL LEFT RADEX FINGR MINIMUM 2 VIEWS Podlogar, MICHAEL DevineN.NEON INSTALLER [address] [place] [address] [place] [address] Referral ID Status Reason Start Date Expiration Date V isits Requested Visits Authorized [id number] Closed Auto-Generate d Referral 02/20/2022 03/22/2023 1 1 [facility] for visit Narrative* Diagnostic Procedure Only (Routine) - Closed Specialty Diagnoses / Procedures Referred By Contac t Referred To Contact Pain Management / PAIN MANAGEMENT Diagnoses Trochanteric bursitis, right hip Right trochanteric bursal injection under ultrasound guidance, evaluate gluteal tendon Procedures ARTHROCENTESIS ASPIR&/INJ MAJOR JT/BURSA W/US PROCEDURE 20 Ashley Blackamn MD [address] [place] [address] Ashley Blackman MD [address] [address] Referral ID Status Reason Start Date Expiration Date Visits Re quested Visits Authorized [id number] Closed 08/16/2022 08/15/2023 1 1 [facility] for visit Narrative* Diagnostic Procedure Only (Routine) - Closed Specialty Diagnoses / Procedures Referred By Contac t Referred To Contact XR IMAGING Diagnoses Primary osteoarthritis of first carpometacarpal joint of left hand Procedures XR HAND GENERAL 3V PA/LAT/OBL LEFT RADEX HAND MINIMUM 3 VIEWS Dana Tejeda PA-C [address] [place] [address] [place] [address] Referral ID Status Reason Start Date Expiration Date V isits Requested Visits Authorized [id number] Closed Auto-Generate d Referral 03/02/2023 03/31/2024 1 1 [facility] for visit Narrative* Diagnostic Procedure Only (Routine) - Closed Specialty Diagnoses / Procedures Referred By Contac t Referred To Contact BR IMAGING Diagnoses Encounter for screening mammogram for breast cancer Procedures CHUNG SCREENING SCREENING MAMMOGRAPHY BI 2-VIEW BREAST INC CAD PodlogarSybil, GITA.NEON INSTALLER [address] [place] [address] [facility] Imaging [address] [place] [address] Referral ID Status Reason Start Date Expiration Date V isits Requested Visits Authorized [id number] Closed Auto-Generate d Referral 01/15/2023 02/14/2024 1 1 [facility] for visit Narrative* Diagnostic Procedure Only (Routine) - Closed Specialty Diagnoses / Procedures Referred By Contac t Referred To Contact XR IMAGING Diagnoses Pain Procedures XR CALCANEUS 2V AXIAL/LAT BILATERAL RADEX CALCANEUS MINIMUM 2 VIEWS Eduardo Vasquez [address] [place] [address] [place] [address] Referral ID Status Reason Start Date Expiration Date V isits Requested Visits Authorized [id number] Closed Auto-Generate d Referral 09/28/2023 10/27/2024 1 1 [facility] for visit Narrative* Diagnostic Procedure Only (Routine) - Closed Specialty Diagnoses / Procedures Referred By Sahara t Referred To Contact BR IMAGING Diagnoses Encounter for screening mammogram for breast cancer Procedures CHUNG SCREENING SCREENING MAMMOGRAPHY BI 2-VIEW BREAST INC CAD Podlogar, Sybil, LOG INSPECTOR.NEON INSTALLER [address] [place] [address] [facility] Imaging [address] [place] [address] Referral ID Status Reason Start Date Expiration Date V isits Requested Visits Authorized [id number] Closed Auto-Generate d Referral 01/18/2024 02/15/2025 1 1 [facility] for visit Narrative* Diagnostic Procedure Only (Routine) - Closed Specialty Diagnoses / Procedures Referred By Sahara t Referred To Contact XR IMAGING Diagnoses Fall, subsequent encounter Procedures XR THORACIC LIMITED 2V AP/LAT RADEX SPINE THORACIC 2 VIEWS Podlogar, Sybil, LOG INSPECTOR.NEON INSTALLER [address] [place] [address] [place] [address] Referral ID Status Reason Start Date Expiration Date V isits Requested Visits Authorized [id number] Closed Auto-Generate d Referral 04/26/2023 05/25/2024 1 1 [facility] for visit Narrative* Diagnostic Procedure Only (Routine) - Closed Specialty Diagnoses / Procedures Referred By Soniaac t Referred To Contact XR IMAGING Diagnoses Fall, initial encounter Procedures XR SHOULDER GENERAL 3V OR MORE AP/TRUE AP/OTHER RIGHT RADEX SHOULDER COMPLETE MINIMUM 2 VIEWS Podlogar, Sybil, LOG INSPECTOR.NEON INSTALLER [address] [place] [address] [place] [address] Referral ID Status Reason Start Date Expiration Date V isits Requested Visits Authorized [id number] Closed Auto-Generate d Referral 01/15/2023 02/14/2024 1 1 [facility] for visit Narrative* Diagnostic Procedure Only (Urgent) - Closed Specialty Diagnoses / Procedures Referred By Soniaac t Referred To Contact XR IMAGING Diagnoses Pain of left thumb Procedures XR DIGIT GENERAL 3V FRONTAL/LAT/OBL LEFT RADEX FINGR MINIMUM 2 VIEWS Podlogar, Sybil, LOG INSPECTOR.NEON INSTALLER [address] [place] [address] [place] [address] Referral ID Status Reason Start Date Expiration Date V isits Requested Visits Authorized [id number] Closed Auto-Generate d Referral 02/20/2022 03/22/2023 1 1 [facility] for visit Narrative* Diagnostic Procedure Only (Routine) - Closed Specialty Diagnoses / Procedures Referred By Contac t Referred To Contact XR IMAGING Diagnoses Pain in right wrist Procedures XR WRIST GENERAL 3V PA/LAT/OBL RIGHT RADEX WRIST COMPLETE MINIMUM 3 VIEWS Linnea Brumfield, GITA.NEON INSTALLER [address] [place] [address] Phone: tel: fax: [place] [address] Referral ID Status Reason Start Date Expiration Date V isits Requested Visits Authorized [id number] Closed Auto-Generate d Referral 09/28/2024 10/28/2025 1 1 [facility] Narrative* Diagnostic Procedure Only (Routine) - Closed Specialty Diagnoses / Procedures Referred By Contac t Referred To Contact XR IMAGING Diagnoses Status post right knee replacement Procedures XR KNEE POST OP 3V AP/LAT/MERCHANT RIGHT RADIOLOGIC EXAMINATION KNEE 3 VIEWS Dean Tinsley MD [address] [place] [address] Phone: tel: fax: [place] [address] Referral ID Status Reason Start Date Expiration Date V isits Requested Visits Authorized [id number] Closed Auto-Generate d Referral 01/05/2025 02/04/2026 1 1 [facility] for visit Narrative* Diagnostic Procedure Only (Routine) - Closed Specialty Diagnoses / Procedures Referred By Contac t Referred To Contact XR IMAGING Diagnoses Status post right knee replacement Procedures XR KNEE POST OP 3V AP/LAT/MERCHANT RIGHT RADIOLOGIC EXAMINATION KNEE 3 VIEWS Dean Tinsley MD [address] [place] [address] Phone: tel: fax: [place] [address] Referral ID Status Reason Start Date Expiration Date V isits Requested Visits Authorized [id number] Closed Auto-Generate d Referral 02/01/2025 02/10/2026 1 1 [facility] Summary Purpose Family History No Family History Records Found Relationship Condition Age at Onset Recorded Date/T afshan sister Asthma Unknown Diabetes mellitus Unknown Hypertension Unknown High blood cholesterol Unknown Osteoporosis Unknown mother Diabetes mellitus Unknown Disorder of thyroid Unknown Malignant neoplasm of skin Unknown brother Diabetes mellitus Unknown father Cardiac disease Unknown Cerebrovascular accident (CVA) Unknown Advance Directives No Advanced Directives Records FoundDocuments on File Type Date Recorded Patient Pool Technician Expl anation Advance Directive(s) 10/25/2021 6:30 PM Advance Directive(s) 12/16/2015 8:30 AM Advance Directive(s) 12/09/2015 4:38 PM Documents on File Type Date Recorded Patient Pool Technician Expl anation Advance Directive(s) 11/13/2021 10:35 AM Advance Directive(s) 10/25/2021 6:30 PM Advance Directive(s) 12/16/2015 8:30 AM Advance Directive(s) 12/09/2015 4:38 PM Documents on File Type Date Recorded Patient Pool Technician Expl anation Advance Directive(s) 11/13/2021 10:35 AM Advance Directive(s) 10/25/2021 6:30 PM Advance Directive(s) 12/16/2015 8:30 AM Advance Directive(s) 12/09/2015 4:38 PM Documents on File Type Date Recorded Patient Pool Technician Expl anation Advance Directive(s) 12/17/2021 12:03 PM Advance Directive(s) 11/13/2021 10:35 AM Advance Directive(s) 10/25/2021 6:30 PM Advance Directive(s) 12/16/2015 8:30 AM Advance Directive(s) 12/09/2015 4:38 PM Documents on File Type Date Recorded Patient Pool Technician Expl anation Advance Directive(s) 12/17/2021 12:03 PM Advance Directive(s) 11/13/2021 10:35 AM Advance Directive(s) 10/25/2021 6:30 PM Advance Directive(s) 12/16/2015 8:30 AM Advance Directive(s) 12/09/2015 4:38 PM Advance Directive Response Recorded Date/ Time Advance Directives Yes February 18 9:55am Living Will Yes August 23 4:23pm Power of Business Employment Specialist Yes August 23, 022 4:23pm Advance Directive Response Recorded Date/ Time Advance Directives Yes February 18 6 10:55am Living Will Yes April 19, 2 023 10:32pm Power of Business Employment Specialist Yes April 19, 2023 10:32pm Name of Medical Power of Business Employment Specialist JILLIAN OLDER April 19, 2023 10:32pm Reason for Referral Specialty Diagnoses / Procedures Referred By Contac t Referred To Contact Psychology Diagnoses Panic disorder with agoraphobia Primary insomnia Major depressive disorder, recurrent episode, moderate (HCC) Procedures CONSULT TO PSYCHOLOGY OFFICE/OUTPATIENT [facility] 60-74 MINUTES Zina Wise, LOG INSPECTOR.NEON INSTALLER [address] [place] [address] Referral ID Status Reason Start Date Expiration Date Visits Requested Visits Authorized [id number] Pending Review PCP Requested Referral 11/19/2021 11/19/2022 1 1 Specialty Diagnoses / Procedures Referred By Contac t Referred To Contact Diagnoses Intractable 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 Chronic daily headache Procedures PROVIDER ORDERED FOLLOW UP OFFICE/OUTPATIENT [facility] 60-74 MINUTES Kecia Holcomb, LOG INSPECTOR.NEON INSTALLER [address] [place] [address] Referral ID Status Reason Start Date Expiration Date Visits Requested Visits Authorized [id number] Authorized PCP Requested Referral 04/24/2022 01/22/2023 1 1 Specialty Diagnoses / Procedures Referred By Contac t Referred To Contact Orthopedics Diagnoses Left wrist pain Pain of left thumb Procedures CONSULT TO ORTHOPAEDICS OFFICE/OUTPATIENT [facility] 60-74 MINUTES Podlogar, Sybil LOG INSPECTOR.NEON INSTALLER [address] [place] [address] Referral ID Status Reason Start Date Expiration Date Visits Requested Visits Authorized [id number] Authorized PCP Requested Referral 02/20/2022 02/20/2023 1 1 Specialty Diagnoses / Procedures Referred By Contac t Referred To Contact XR IMAGING Diagnoses Pain of left thumb Procedures XR DIGIT GENERAL 3V FRONTAL/LAT/OBL LEFT RADEX FINGR MINIMUM 2 VIEWS Podlogar, Sybil LOG INSPECTOR.NEON INSTALLER [address] [place] [address] Xr Imaging Referral ID Status Reason Start Date Expiration Date V isits Requested Visits Authorized [id number] Closed Auto-Generate d Referral 02/20/2022 03/22/2023 1 1 Specialty Diagnoses / Procedures Referred By Contac t Referred To Contact XR IMAGING Diagnoses Right hip pain Procedures XR HIP GENERAL 3V PELV/AP/LAT RIGHT RADEX HIP UNILATERAL WITH PELVIS 2-3 VIEWS Podlogar, Sybil, LOG INSPECTOR.NEON INSTALLER [address] [place] [address] Xr Imaging Referral ID Status Reason Start Date Expiration Date V isits Requested Visits Authorized [id number] Closed Auto-Generate d Referral 02/20/2022 03/22/2023 1 1 Specialty Diagnoses / Procedures Referred By Contac t Referred To Contact XR IMAGING Diagnoses Left wrist pain Procedures XR WRIST GENERAL 3V PA/LAT/OBL LEFT RADEX WRIST COMPLETE MINIMUM 3 VIEWS Podlogar, Sybil, LOG INSPECTOR.NEON INSTALLER [address] [place] [address] Xr Imaging Referral ID Status Reason Start Date Expiration Date V isits Requested Visits Authorized [id number] Closed Auto-Generate d Referral 02/20/2022 03/22/2023 1 1 Specialty Diagnoses / Procedures Referred By Contac t Referred To Contact ADULT PSYCHIATRY Diagnoses Primary insomnia Panic disorder with agoraphobia Major depressive disorder, recurrent episode, moderate (HCC) Procedures CONSULT TO INTENSIVE OUTPATIENT PROGRAM (IOP) OFFICE/OUTPATIENT [facility] 60-74 MINUTES Zina Wise, LOG INSPECTOR.NEON INSTALLER [address] [place] [address] [facility] [place] [address] [place] [address] Referral ID Status Reason Start Date Expiration Date Visits Requested Visits Authorized [id number] Pending Review PCP Requested Referral 10/21/2022 10/21/2023 1 1 Specialty Diagnoses / Procedures Referred By Contac t Referred To Contact Psychology Diagnoses Anxiety with depression PTSD (post-traumatic stress disorder) Procedures CONSULT TO PSYCHOLOGY OFFICE/OUTPATIENT [facility] 60-74 MINUTES Eugene Sanchez MD [address] [place] [address] Referral ID Status Reason Start Date Expiration Date Visits Requested Visits Authorized [id number] Pending Review PCP Requested Referral 12/10/2022 12/10/2023 1 1 Referral ID Status Reason Start Date Expiration Date V isits Requested Visits Authorized [id number] Closed PCP Requested Referral 10/21/2022 10/21/2023 1 1 Specialty Diagnoses / Procedures Referred By Contac t Referred To Contact [facility] Diagnoses Primary osteoarthritis of first carpometacarpal joint of left hand Procedures CONSULT TO TRACTOR SWEEPER DRIVER [facility]CC[facility]AP[facility] 60 MINS Dana Tejeda PA-C [address] [place] [address] [facility] [address] [place] [address] Referral ID Status Reason Start Date Expiration Date Visits Requested Visits Authorized [id number] Pending Review Auto-Generat ed Referral 01/14/2023 01/13/2024 1 1 Specialty Diagnoses / Procedures Referred By Contac t Referred To Contact Nutrition Diagnoses Generalized anxiety disorder Depression, unspecified depression type Procedures CONSULT TO NUTRITION THERAPY MEDICAL NUTRITION ASSMT&IVNTJ INDIV EACH 15 NC MEDICAL NUTRITION ASSMT&IVNTJ INDIV EACH 15 NC MEDICAL NUTRITION ASSMT&IVNTJ INDIV EACH 15 NC MEDICAL NUTRITION ASSMT&IVNTJ INDIV EACH 15 NC Tristian Talbot, LOG INSPECTOR.NEON INSTALLER [address] [place] [address] Referral ID Status Reason Start Date Expiration Date Visits Requested Visits Authorized [id number] Pending Review PCP Requested Referral 11/30/2022 11/30/2023 1 1 Specialty Diagnoses / Procedures Referred By Contac t Referred To Contact Psychology Diagnoses Nonepileptic episode (HCC) Procedures CONSULT TO PSYCHOLOGY OFFICE/OUTPATIENT [facility] 60-74 MINUTES Nelda Cheek PA-C [address] [place] [address] Referral ID Status Reason Start Date Expiration Date Visits Requested Visits Authorized [id number] Pending Review PCP Requested Referral 01/27/2023 01/27/2024 1 1 Specialty Diagnoses / Procedures Referred By Contac t Referred To Contact [facility] Diagnoses Falls frequently Procedures PT REHAB FOLLOW UP ORDER THERAPEUTIC EXERCISES RE, EA 15 MIN. Elian Rodriguez, PT [address] [place] [address] [facility] [place] [address] Referral ID Status Reason Start Date Expiration Date Visits Requested Visits Authorized [id number] Pending Review PCP Requested Referral Auto-Generate d Referral 02/11/2023 05/12/2023 1 1 Specialty Diagnoses / Procedures Referred By Contac t Referred To Contact [facility] Diagnoses Arthritis of carpometacarpal (CMC) joint of left thumb Procedures OT REHAB FOLLOW UP ORDER THERAPEUT ACTVITY DIRECT PT CONTACT EACH 15 MIN [address] [place] [address] [place] [address] [facility] [place] [address] Referral ID Status Reason Start Date Expiration Date Visits Requested Visits Authorized [id number] Pending Review PCP Requested Referral Auto-Generate d Referral 02/23/2023 05/24/2023 1 1 Specialty Diagnoses / Procedures Referred By Contac t Referred To Contact Neurology Diagnoses Memory impairment Procedures CONSULT TO NEUROLOGY OFFICE/OUTPATIENT [facility] 60-74 MINUTES Eugene Sanchez MD [address] [place] [address] Referral ID Status Reason Start Date Expiration Date Visits Requested Visits Authorized [id number] Pending Review PCP Requested Referral 03/16/2023 03/15/2024 1 1 Specialty Diagnoses / Procedures Referred By Contac t Referred To Contact MR IMAGING Diagnoses Memory impairment Procedures MRI BRAIN WO IVCON MRI BRAIN BRAIN STEM W/O CONTRAST MATERIAL Eugene Sanchez MD [address] [place] [address] Mr Imaging Referral ID Status Reason Start Date Expiration Date Visits Requested Visits Authorized [id number] Authorized Auto-Generat ed Referral 03/16/2023 04/14/2024 1 1 Specialty Diagnoses / Procedures Referred By Contac t Referred To Contact MR IMAGING Diagnoses Memory impairment Procedures MRI BRAIN WO IVCON MRI BRAIN BRAIN STEM W/O CONTRAST MATERIAL Eugene Sanchez MD [address] [place] [address] Mr Imaging [facility] Referral ID Status Reason Start Date Expiration Date V isits Requested Visits Authorized [id number] Closed Auto-Generate d Referral 03/16/2023 04/14/2024 1 1 Specialty Diagnoses / Procedures Referred By Contac t Referred To Contact Diagnoses Chronic migraine without aura, intractable, without status migrainosus Procedures PROVIDER ORDERED FOLLOW UP OFFICE/OUTPATIENT [facility] 60-74 MINUTES Eduardo Villa PA-C [address] [place] [address] Referral ID Status Reason Start Date Expiration Date Visits Requested Visits Authorized [id number] Pending Review PCP Requested Referral 11/19/2023 07/21/2024 1 1 Specialty Diagnoses / Procedures Referred By Contac t Referred To Contact Psychology Diagnoses Psychogenic nonepileptic seizure Procedures CONSULT TO PSYCHOLOGY OFFICE/OUTPATIENT [facility] MDM 60 MINUTES Benoit Padilla APRN.NEON INSTALLER [address] [facility] [address] [place] [id number] Referral ID Status Reason Start Date Expiration Date Visits Requested Visits Authorized [id number] Pending Review PCP Requested Referral 10/13/2023 10/12/2024 1 1 Specialty Diagnoses / Procedures Referred By Contac t Referred To Contact MR IMAGING Diagnoses Spinal stenosis of lumbar region with neurogenic claudication Procedures MRI LUMBAR SPINE WO IVCON MRI SPINAL CANAL LUMBAR W/O CONTRAST MATERIAL Linnea Brumfield, LOG INSPECTOR.NEON INSTALLER [address] [place] [address] [place] [address] Referral ID Status Reason Start Date Expiration Date Visits Requested Visits Authorized [id number] Authorized Auto-Generat ed Referral 10/29/2023 11/27/2024 1 1 Referral ID Status Reason Start Date Expiration Date V isits Requested Visits Authorized [id number] Closed Auto-Generate d Referral 10/29/2023 11/27/2024 1 1 Specialty Diagnoses / Procedures Referred By Contac t Referred To Contact Pain Management Diagnoses Orthopedic device, implant, or graft complication (HCC) Chronic pain of right knee Procedures CONSULT TO PAIN MGT OFFICE/OUTPATIENT [facility] MDM 60 MINUTES Darío Bonilla PA-C [address] [address] Referral ID Status Reason Start Date Expiration Date Visits Requested Visits Authorized [id number] Authorized PCP Requested Referral 07/05/2025 1 1 Specialty Diagnoses / Procedures Referred By Contac t Referred To Contact CT IMAGING Diagnoses Orthopedic device, implant, or graft complication (HCC) Procedures CT KNEE WO IVCON RIGHT CT LOWER EXTREMITY W/O CONTRAST MATERIAL Darío Bonilla PA-C [address] [place] [address] Ct [facility] [place] [address] Referral ID Status Reason Start Date Expiration Date Visits Requested Visits Authorized [id number] Authorized Auto-Generat ed Referral 08/04/2025 1 1 Referral ID Status Reason Start Date Expiration Date V isits Requested Visits Authorized [id number] Closed Auto-Generate d Referral 07/05/2024 08/04/2025 1 1 Specialty Diagnoses / Procedures Referred By Contac t Referred To Contact [facility] Diagnoses Plantar fasciitis, bilateral Procedures CONSULT TO PHYSICAL THERAPY PHYSICAL THERAPY EVALUATION HIGH COMPLEX 45 MINS Eduardo Vasquez [address] [place] [address] [facility] [address] [place] [address] Referral ID Status Reason Start Date Expiration Date Visits Requested Visits Authorized [id number] Pending Review Auto-Generat ed Referral 08/17/2024 08/17/2025 1 1 Specialty Diagnoses / Procedures Referred By Contac t Referred To Contact XR IMAGING Diagnoses Plantar fasciitis, bilateral Procedures XR FOOT GENERAL 3V AP/LAT/OBL BILATERAL RADEX FOOT COMPLETE MINIMUM 3 VIEWS Eduardo Vasquez [address] [place] [address] [place] [address] Referral ID Status Reason Start Date Expiration Date Visits Requested Visits Authorized [id number] New Request Auto-Generat ed Referral 08/17/2024 09/16/2025 1 1 Medications Administered Section Active Administered Medications - up to 3 most recent administrations Medication Order MAR Action Action Date Dose Rate Site fluorescein-benoxinate 0.25-0.4 % 1 Drop (FLURESS) 1 Drop, BOTH EYES, DIRECTED, Starting on Wed02/10/22 at 1500, Until Wed02/11/22 at 0259, Administer for applanation tonometry. In the event of a Fluress shortage, administer Liat-Fluor 1 drop into both eyes as directed for applanation tonometry, [facility] Given 02/10/2022 3:00 PM EDT 1 Drop Inactive Administered Medications - up to 3 most recent administrations Medication Order MAR Action Action Date Dose Rate Site bupivacaine (PF) 0.5 % (5 mg/mL) 15 mg injection 15 mg (3 mL), OTHER, ONCE, 1 dose, On Wed07/01/22 at 1400 Given by [facility] 07/01/2022 2:43 PM EST 15 mg lidocaine (PF) 20 mg/mL (2 %) 200 mg injection (XYLOCAINE) 200 mg (10 mL), OTHER, ONCE, 1 dose, On Wed07/01/22 at 1400 Given by [facility] 07/01/2022 2:44 PM EST 200 mg methylPREDNISolone acetate 40 mg injection (DEPO-Medrol) 40 mg, OTHER, ONCE, 1 dose, On Wed07/01/22 at 1400 Given by [facility] 07/01/2022 2:44 PM EST 40 mg Active Administered Medications - up to 3 most recent administrations Medication Order MAR Action Action Date Dose Rate Site fluorescein-benoxinate 0.25-0.4 % 1 Drop (FLURESS) 1 Drop, BOTH EYES, DIRECTED, Starting on Wed07/22/22 at 0930, Until Wed07/22/22 at 2129, Administer for applanation tonometry. In the event of a Fluress shortage, administer Liat-Fluor 1 drop into both eyes as directed for applanation tonometry, [facility] ORDERS Given 07/22/2022 9:30 AM EST 1 Drop Inactive Administered Medications - up to 3 most recent administrations Medication Order MAR Action Action Date Dose Rate Site lidocaine (PF) 10 mg/mL (1 %) 40 mg injection (XYLOCAINE) 40 mg (4 mL), OTHER, ONCE, 1 dose, On Yara 08/27/22 at 1130 Given by [facility] 08/27/2022 11:38 AM EST 40 mg Inactive Administered Medications - up to 3 most recent administrations Medication Order MAR Action Action Date Dose Rate Site lidocaine (PF) 20 mg/mL (2 %) 100 mg injection (XYLOCAINE) 100 mg (5 mL), OTHER, ONCE, 1 dose, On Yara 09/10/22 at 1600 Given by [facility] 09/10/2022 4:08 PM EST 100 mg Inactive Administered Medications - up to 3 most recent administrations Medication Order MAR Action Action Date Dose Rate Site lidocaine (PF) 10 mg/mL (1 %) 50 mg injection (XYLOCAINE) 50 mg (5 mL), OTHER, ONCE, 1 dose, On Yara 11/26/22 at 1330 Given by [facility] 11/26/2022 2:13 PM EDT 50 mg Other Inactive Administered Medications - up to 3 most recent administrations Medication Order MAR Action Action Date Dose Rate Site eptinezumab-jjmr 100 mg in NaCl 0.9% 100 mL (VYEPTI) 100 mg, INTRAVENOUS, at 200 mL/hr, Administer over 30 Minutes, ONCE, 1 dose, On Wed02/26/23 at 0930, EXP: Administer with 0.2 micron filter. New Bag/Syringe/Bottle 02/26/2023 9:42 AM EDT 100 mg 200 mL/hr Active Administered Medications - up to 3 most recent administrations Medication Order MAR Action Action Date Dose Rate Site fluorescein-benoxinate 0.25-0.4 % 1 Drop (FLURESS) 1 Drop, BOTH EYES, DIRECTED, Starting on Wed04/07/23 at 1030, Until Wed04/07/23 at 2229, Administer for applanation tonometry. In the event of a Fluress shortage, administer [place]-Fluor 1 drop into both eyes as directed for applanation tonometry, [facility] MED ORD[facility] Given 04/07/2023 10:30 AM EDT 1 Drop Inactive Administered Medications - up to 3 most recent administrations Medication Order MAR Action Action Date Dose Rate Site lidocaine (PF) 10 mg/mL (1 %) 100 mg injection (XYLOCAINE) 100 mg, OTHER, ONCE, 1 dose, On Wed06/11/23 at 0930 Given by [facility] 06/11/2023 2:10 PM EDT 100 mg lidocaine (PF) 20 mg/mL (2 %) 200 mg injection (XYLOCAINE) 200 mg, OTHER, ONCE, 1 dose, On Wed06/11/23 at 0930 Given by [facility] 06/11/2023 2:10 PM EDT 200 mg methylPREDNISolone acetate 40 mg injection (DEPO-Medrol) 40 mg, OTHER, ONCE, 1 dose, On Wed06/11/23 at 0930 Given by [facility] 06/11/2023 2:10 PM EDT 40 mg Inactive Administered Medications - up to 3 most recent administrations Medication Order MAR Action Action Date Dose Rate Site eptinezumab-jjmr 100 mg in NaCl 0.9% 100 mL (VYEPTI) 100 mg, INTRAVENOUS, at 200 mL/hr, Administer over 30 Minutes, ONCE, 1 dose, On Wed06/18/23 at 1300, EXP: Administer with 0.2 micron filter. New Bag/Syringe/Bottle 06/18/2023 1:01 PM EDT 100 mg 200 mL/hr Inactive Administered Medications - up to 3 most recent administrations Medication Order MAR Action Action Date Dose Rate Site lidocaine (PF) 10 mg/mL (1 %) 100 mg injection (XYLOCAINE) 100 mg, OTHER, ONCE, 1 dose, On Wed07/22/23 at 1500 Given by [facility] 07/22/2023 2:55 PM EST 100 mg lidocaine (PF) 20 mg/mL (2 %) 200 mg injection (XYLOCAINE) 200 mg, OTHER, ONCE, 1 dose, On Wed07/22/23 at 1500 Given by [facility] 07/22/2023 2:57 PM EST 200 mg methylPREDNISolone acetate 40 mg injection (DEPO-Medrol) 40 mg, OTHER, ONCE, 1 dose, On Wed07/22/23 at 1500 Given by [facility] 07/22/2023 2:56 PM EST 40 mg Inactive Administered Medications - up to 3 most recent administrations Medication Order MAR Action Action Date Dose Rate Site PHENYLephrine 2.5 % 1 Drop (AK-DILATE, WALLY-SYNEPHRINE) 1 Drop, RIGHT EYE, DIRECTED, Starting on Wed08/03/23 at 1100, Until Wed08/03/23 at 2259, Administer for dilation PROTECT FROM LIGHT, [facility] MED ORD[facility] Given 08/03/2023 11:00 AM EST 1 Drop proparacaine 0.5 % 1 Drop (ALCAINE) 1 Drop, RIGHT EYE, DIRECTED, Starting on Wed08/03/23 at 1100, Until Wed08/03/23 at 2259, Administer for pneumo tonometry, tonopen tonometry, or pachymetry. In the event of a proparacaine shortage, administer tetracaine 0.5% ophthalmic drops 1 drop in the right eye as directed for pneumo tonometry, tonopen tonometry, or pachymetry, [facility] MED ORDERS Given 08/03/2023 11:00 AM EST 1 Drop tropicamide 1 % 1 Drop (MYDRIACYL) 1 Drop, RIGHT EYE, DIRECTED, Starting on Wed08/03/23 at 1100, Until Wed08/03/23 at 2259, Administer for dilation, [facility] MED ORDERS Given 08/03/2023 11:00 AM EST 1 Drop Health Concerns Infection Onset Date Last Indicated Resolved Time COVID-19 Rule-Out 10/22/2021 10/22/2021 10/23/2021 3:29 AM EST COVID-19 Rule-Out 10/25/2021 10/25/2021 10/25/2021 3:52 PM EST Chief Complaint and Reason for Visit Chief Complaint R KNEE PAIN/ARTHRITI S. RX HERE Chief Complaint FALL Additional Source Comments INFORMATION SOURCE (unrecogn ized section and content) DATE CREATED AUTHOR 03/12/2021 [facility]undation ([place]) DATE CREATED AUTHOR AUTHOR'S ORGANIZ ATION 01/25/2023 [facility] DATE CREATED AUTHOR AUTHOR'S ORGANIZ ATION 07/09/2024 [facility] DATE CREATED AUTHOR AUTHOR'S ORGANIZ ATION 12/02/2024 [facility] DATE CREATED AUTHOR AUTHOR'S ORGANIZ ATION 02/11/2025 [facility] DATE CREATED AUTHOR AUTHOR'S ORGANIZ ATION 02/22/2025 [facility] DATE CREATED AUTHOR AUTHOR'S ORGANISRAEL ATION 02/24/2025 [facility] Source Comments (unrecognize d section and content) In the event this informatio n is protected by the Federal Confidentiality of Alcohol and Drug Abuse Patient Records regulations: The Federal rules restrict any use of the information to criminally investigate or prosecute any alcohol or drug abuse patient.[facility] the event this information is protected by the Federal Confidentiality of Alcohol and Drug Abuse Patient Records regulations: The Federal rules restrict any use of the information to criminally investigate or prosecute any alcohol or drug abuse patient.[facility] the event this information is protected by the Federal Confidentiality of Alcohol and Drug Abuse Patient Records regulations: The Federal rules restrict any use of the information to criminally investigate or prosecute any alcohol or drug abuse patient.[facility] the event this information is protected by the Federal Confidentiality of Alcohol and Drug Abuse Patient Records regulations: The Federal rules restrict any use of the information to criminally investigate or prosecute any alcohol or drug abuse patient.[facility] the event this information is protected by the Federal Confidentiality of Alcohol and Drug Abuse Patient Records regulations: The Federal rules restrict any use of the information to criminally investigate or prosecute any alcohol or drug abuse patient.[facility] the event this information is protected by the Federal Confidentiality of Alcohol and Drug Abuse Patient Records regulations: The Federal rules restrict any use of the information to criminally investigate or prosecute any alcohol or drug abuse patient.[facility] HospitalIn the event this information is protected by the Federal Confidentiality of Alcohol and Drug Abuse Patient Records regulations: The Federal rules restrict any use of the information to criminally investigate or prosecute any alcohol or drug abuse patient.[facility] HospitalIn the event this information is protected by the Federal Confidentiality of Alcohol and Drug Abuse Patient Records regulations: The Federal rules restrict any use of the information to criminally investigate or prosecute any alcohol or drug abuse patient.[facility] HospitalIn the event this information is protected by the Federal Confidentiality of Alcohol and Drug Abuse Patient Records regulations: The Federal rules restrict any use of the information to criminally investigate or prosecute any alcohol or drug abuse patient.[facility] HospitalIn the event this information is protected by the Federal Confidentiality of Alcohol and Drug Abuse Patient Records regulations: The Federal rules restrict any use of the information to criminally investigate or prosecute any alcohol or drug abuse patient.[facility] HospitalIn the event this information is protected by the Federal Confidentiality of Alcohol and Drug Abuse Patient Records regulations: The Federal rules restrict any use of the information to criminally investigate or prosecute any alcohol or drug abuse patient.[facility] HospitalIn the event this information is protected by the Federal Confidentiality of Alcohol and Drug Abuse Patient Records regulations: The Federal rules restrict any use of the information to criminally investigate or prosecute any alcohol or drug abuse patient.[facility] HospitalIn the event this information is protected by the Federal Confidentiality of Alcohol and Drug Abuse Patient Records regulations: The Federal rules restrict any use of the information to criminally investigate or prosecute any alcohol or drug abuse patient.[facility] HospitalIn the event this information is protected by the Federal Confidentiality of Alcohol and Drug Abuse Patient Records regulations: The Federal rules restrict any use of the information to criminally investigate or prosecute any alcohol or drug abuse patient.[facility] HospitalIn the event this information is protected by the Federal Confidentiality of Alcohol and Drug Abuse Patient Records regulations: The Federal rules restrict any use of the information to criminally investigate or prosecute any alcohol or drug abuse patient.[facility] HospitalIn the event this information is protected by the Federal Confidentiality of Alcohol and Drug Abuse Patient Records regulations: The Federal rules restrict any use of the information to criminally investigate or prosecute any alcohol or drug abuse patient.[facility] HospitalIn the event this information is protected by the Federal Confidentiality of Alcohol and Drug Abuse Patient Records regulations: The Federal rules restrict any use of the information to criminally investigate or prosecute any alcohol or drug abuse patient.[facility] HospitalIn the event this information is protected by the Federal Confidentiality of Alcohol and Drug Abuse Patient Records regulations: The Federal rules restrict any use of the information to criminally investigate or prosecute any alcohol or drug abuse patient.[facility] HospitalIn the event this information is protected by the Federal Confidentiality of Alcohol and Drug Abuse Patient Records regulations: The Federal rules restrict any use of the information to criminally investigate or prosecute any alcohol or drug abuse patient.[facility] HospitalIn the event this information is protected by the Federal Confidentiality of Alcohol and Drug Abuse Patient Records regulations: The Federal rules restrict any use of the information to criminally investigate or prosecute any alcohol or drug abuse patient.[facility] HospitalIn the event this information is protected by the Federal Confidentiality of Alcohol and Drug Abuse Patient Records regulations: The Federal rules restrict any use of the information to criminally investigate or prosecute any alcohol or drug abuse patient.[facility] HospitalIn the event this information is protected by the Federal Confidentiality of Alcohol and Drug Abuse Patient Records regulations: The Federal rules restrict any use of the information to criminally investigate or prosecute any alcohol or drug abuse patient.[facility] HospitalIn the event this information is protected by the Federal Confidentiality of Alcohol and Drug Abuse Patient Records regulations: The Federal rules restrict any use of the information to criminally investigate or prosecute any alcohol or drug abuse patient.[facility] HospitalIn the event this information is protected by the Federal Confidentiality of Alcohol and Drug Abuse Patient Records regulations: The Federal rules restrict any use of the information to criminally investigate or prosecute any alcohol or drug abuse patient.[facility] HospitalIn the event this information is protected by the Federal Confidentiality of Alcohol and Drug Abuse Patient Records regulations: The Federal rules restrict any use of the information to criminally investigate or prosecute any alcohol or drug abuse patient.[facility] HospitalIn the event this information is protected by the Federal Confidentiality of Alcohol and Drug Abuse Patient Records regulations: The Federal rules restrict any use of the information to criminally investigate or prosecute any alcohol or drug abuse patient.[facility] HospitalIn the event this information is protected by the Federal Confidentiality of Alcohol and Drug Abuse Patient Records regulations: The Federal rules restrict any use of the information to criminally investigate or prosecute any alcohol or drug abuse patient.[facility] HospitalIn the event this information is protected by the Federal Confidentiality of Alcohol and Drug Abuse Patient Records regulations: The Federal rules restrict any use of the information to criminally investigate or prosecute any alcohol or drug abuse patient.[facility] HospitalIn the event this information is protected by the Federal Confidentiality of Alcohol and Drug Abuse Patient Records regulations: The Federal rules restrict any use of the information to criminally investigate or prosecute any alcohol or drug abuse patient.[facility] HospitalIn the event this information is protected by the Federal Confidentiality of Alcohol and Drug Abuse Patient Records regulations: The Federal rules restrict any use of the information to criminally investigate or prosecute any alcohol or drug abuse patient.[facility] HospitalIn the event this information is protected by the Federal Confidentiality of Alcohol and Drug Abuse Patient Records regulations: The Federal rules restrict any use of the information to criminally investigate or prosecute any alcohol or drug abuse patient.[facility] HospitalIn the event this information is protected by the Federal Confidentiality of Alcohol and Drug Abuse Patient Records regulations: The Federal rules restrict any use of the information to criminally investigate or prosecute any alcohol or drug abuse patient.[facility] HospitalIn the event this information is protected by the Federal Confidentiality of Alcohol and Drug Abuse Patient Records regulations: The Federal rules restrict any use of the information to criminally investigate or prosecute any alcohol or drug abuse patient.[facility] HospitalIn the event this information is protected by the Federal Confidentiality of Alcohol and Drug Abuse Patient Records regulations: The Federal rules restrict any use of the information to criminally investigate or prosecute any alcohol or drug abuse patient.[facility] HospitalIn the event this information is protected by the Federal Confidentiality of Alcohol and Drug Abuse Patient Records regulations: The Federal rules restrict any use of the information to criminally investigate or prosecute any alcohol or drug abuse patient.[facility] HospitalIn the event this information is protected by the Federal Confidentiality of Alcohol and Drug Abuse Patient Records regulations: The Federal rules restrict any use of the information to criminally investigate or prosecute any alcohol or drug abuse patient.[facility] HospitalIn the event this information is protected by the Federal Confidentiality of Alcohol and Drug Abuse Patient Records regulations: The Federal rules restrict any use of the information to criminally investigate or prosecute any alcohol or drug abuse patient.[facility] HospitalIn the event this information is protected by the Federal Confidentiality of Alcohol and Drug Abuse Patient Records regulations: The Federal rules restrict any use of the information to criminally investigate or prosecute any alcohol or drug abuse patient.[facility] HospitalIn the event this information is protected by the Federal Confidentiality of Alcohol and Drug Abuse Patient Records regulations: The Federal rules restrict any use of the information to criminally investigate or prosecute any alcohol or drug abuse patient.[facility] HospitalIn the event this information is protected by the Federal Confidentiality of Alcohol and Drug Abuse Patient Records regulations: The Federal rules restrict any use of the information to criminally investigate or prosecute any alcohol or drug abuse patient.[facility] HospitalIn the event this information is protected by the Federal Confidentiality of Alcohol and Drug Abuse Patient Records regulations: The Federal rules restrict any use of the information to criminally investigate or prosecute any alcohol or drug abuse patient.[facility] HospitalIn the event this information is protected by the Federal Confidentiality of Alcohol and Drug Abuse Patient Records regulations: The Federal rules restrict any use of the information to criminally investigate or prosecute any alcohol or drug abuse patient.[facility] HospitalIn the event this information is protected by the Federal Confidentiality of Alcohol and Drug Abuse Patient Records regulations: The Federal rules restrict any use of the information to criminally investigate or prosecute any alcohol or drug abuse patient.[facility] HospitalIn the event this information is protected by the Federal Confidentiality of Alcohol and Drug Abuse Patient Records regulations: The Federal rules restrict any use of the information to criminally investigate or prosecute any alcohol or drug abuse patient.[facility] HospitalIn the event this information is protected by the Federal Confidentiality of Alcohol and Drug Abuse Patient Records regulations: The Federal rules restrict any use of the information to criminally investigate or prosecute any alcohol or drug abuse patient.[facility] HospitalIn the event this information is protected by the Federal Confidentiality of Alcohol and Drug Abuse Patient Records regulations: The Federal rules restrict any use of the information to criminally investigate or prosecute any alcohol or drug abuse patient.[facility] HospitalIn the event this information is protected by the Federal Confidentiality of Alcohol and Drug Abuse Patient Records regulations: The Federal rules restrict any use of the information to criminally investigate or prosecute any alcohol or drug abuse patient.[facility] HospitalIn the event this information is protected by the Federal Confidentiality of Alcohol and Drug Abuse Patient Records regulations: The Federal rules restrict any use of the information to criminally investigate or prosecute any alcohol or drug abuse patient.[facility] HospitalIn the event this information is protected by the Federal Confidentiality of Alcohol and Drug Abuse Patient Records regulations: The Federal rules restrict any use of the information to criminally investigate or prosecute any alcohol or drug abuse patient.[facility] HospitalIn the event this information is protected by the Federal Confidentiality of Alcohol and Drug Abuse Patient Records regulations: The Federal rules restrict any use of the information to criminally investigate or prosecute any alcohol or drug abuse patient.[facility] HospitalIn the event this information is protected by the Federal Confidentiality of Alcohol and Drug Abuse Patient Records regulations: The Federal rules restrict any use of the information to criminally investigate or prosecute any alcohol or drug abuse patient.[facility] HospitalIn the event this information is protected by the Federal Confidentiality of Alcohol and Drug Abuse Patient Records regulations: The Federal rules restrict any use of the information to criminally investigate or prosecute any alcohol or drug abuse patient.[facility] HospitalIn the event this information is protected by the Federal Confidentiality of Alcohol and Drug Abuse Patient Records regulations: The Federal rules restrict any use of the information to criminally investigate or prosecute any alcohol or drug abuse patient.[facility] HospitalIn the event this information is protected by the Federal Confidentiality of Alcohol and Drug Abuse Patient Records regulations: The Federal rules restrict any use of the information to criminally investigate or prosecute any alcohol or drug abuse patient.[facility] HospitalIn the event this information is protected by the Federal Confidentiality of Alcohol and Drug Abuse Patient Records regulations: The Federal rules restrict any use of the information to criminally investigate or prosecute any alcohol or drug abuse patient.[facility] HospitalIn the event this information is protected by the Federal Confidentiality of Alcohol and Drug Abuse Patient Records regulations: The Federal rules restrict any use of the information to criminally investigate or prosecute any alcohol or drug abuse patient.[facility] HospitalIn the event this information is protected by the Federal Confidentiality of Alcohol and Drug Abuse Patient Records regulations: The Federal rules restrict any use of the information to criminally investigate or prosecute any alcohol or drug abuse patient.[facility] HospitalIn the event this information is protected by the Federal Confidentiality of Alcohol and Drug Abuse Patient Records regulations: The Federal rules restrict any use of the information to criminally investigate or prosecute any alcohol or drug abuse patient.[facility] HospitalIn the event this information is protected by the Federal Confidentiality of Alcohol and Drug Abuse Patient Records regulations: The Federal rules restrict any use of the information to criminally investigate or prosecute any alcohol or drug abuse patient.[facility] HospitalIn the event this information is protected by the Federal Confidentiality of Alcohol and Drug Abuse Patient Records regulations: The Federal rules restrict any use of the information to criminally investigate or prosecute any alcohol or drug abuse patient.[facility] HospitalIn the event this information is protected by the Federal Confidentiality of Alcohol and Drug Abuse Patient Records regulations: The Federal rules restrict any use of the information to criminally investigate or prosecute any alcohol or drug abuse patient.[facility] HospitalIn the event this information is protected by the Federal Confidentiality of Alcohol and Drug Abuse Patient Records regulations: The Federal rules restrict any use of the information to criminally investigate or prosecute any alcohol or drug abuse patient.[facility] HospitalIn the event this information is protected by the Federal Confidentiality of Alcohol and Drug Abuse Patient Records regulations: The Federal rules restrict any use of the information to criminally investigate or prosecute any alcohol or drug abuse patient.[facility] HospitalIn the event this information is protected by the Federal Confidentiality of Alcohol and Drug Abuse Patient Records regulations: The Federal rules restrict any use of the information to criminally investigate or prosecute any alcohol or drug abuse patient.[facility] HospitalIn the event this information is protected by the Federal Confidentiality of Alcohol and Drug Abuse Patient Records regulations: The Federal rules restrict any use of the information to criminally investigate or prosecute any alcohol or drug abuse patient.[facility] HospitalIn the event this information is protected by the Federal Confidentiality of Alcohol and Drug Abuse Patient Records regulations: The Federal rules restrict any use of the information to criminally investigate or prosecute any alcohol or drug abuse patient.[facility] HospitalIn the event this information is protected by the Federal Confidentiality of Alcohol and Drug Abuse Patient Records regulations: The Federal rules restrict any use of the information to criminally investigate or prosecute any alcohol or drug abuse patient.[facility] HospitalIn the event this information is protected by the Federal Confidentiality of Alcohol and Drug Abuse Patient Records regulations: The Federal rules restrict any use of the information to criminally investigate or prosecute any alcohol or drug abuse patient.[facility] HospitalIn the event this information is protected by the Federal Confidentiality of Alcohol and Drug Abuse Patient Records regulations: The Federal rules restrict any use of the information to criminally investigate or prosecute any alcohol or drug abuse patient.[facility] HospitalIn the event this information is protected by the Federal Confidentiality of Alcohol and Drug Abuse Patient Records regulations: The Federal rules restrict any use of the information to criminally investigate or prosecute any alcohol or drug abuse patient.[facility] HospitalIn the event this information is protected by the Federal Confidentiality of Alcohol and Drug Abuse Patient Records regulations: The Federal rules restrict any use of the information to criminally investigate or prosecute any alcohol or drug abuse patient.[facility] HospitalIn the event this information is protected by the Federal Confidentiality of Alcohol and Drug Abuse Patient Records regulations: The Federal rules restrict any use of the information to criminally investigate or prosecute any alcohol or drug abuse patient.[facility] HospitalIn the event this information is protected by the Federal Confidentiality of Alcohol and Drug Abuse Patient Records regulations: The Federal rules restrict any use of the information to criminally investigate or prosecute any alcohol or drug abuse patient.[facility] HospitalIn the event this information is protected by the Federal Confidentiality of Alcohol and Drug Abuse Patient Records regulations: The Federal rules restrict any use of the information to criminally investigate or prosecute any alcohol or drug abuse patient.[facility] HospitalIn the event this information is protected by the Federal Confidentiality of Alcohol and Drug Abuse Patient Records regulations: The Federal rules restrict any use of the information to criminally investigate or prosecute any alcohol or drug abuse patient.[facility] HospitalIn the event this information is protected by the Federal Confidentiality of Alcohol and Drug Abuse Patient Records regulations: The Federal rules restrict any use of the information to criminally investigate or prosecute any alcohol or drug abuse patient.[facility] HospitalIn the event this information is protected by the Federal Confidentiality of Alcohol and Drug Abuse Patient Records regulations: The Federal rules restrict any use of the information to criminally investigate or prosecute any alcohol or drug abuse patient.[facility] HospitalIn the event this information is protected by the Federal Confidentiality of Alcohol and Drug Abuse Patient Records regulations: The Federal rules restrict any use of the information to criminally investigate or prosecute any alcohol or drug abuse patient.[facility] HospitalIn the event this information is protected by the Federal Confidentiality of Alcohol and Drug Abuse Patient Records regulations: The Federal rules restrict any use of the information to criminally investigate or prosecute any alcohol or drug abuse patient.[facility] HospitalIn the event this information is protected by the Federal Confidentiality of Alcohol and Drug Abuse Patient Records regulations: The Federal rules restrict any use of the information to criminally investigate or prosecute any alcohol or drug abuse patient.[facility] HospitalIn the event this information is protected by the Federal Confidentiality of Alcohol and Drug Abuse Patient Records regulations: The Federal rules restrict any use of the information to criminally investigate or prosecute any alcohol or drug abuse patient.[facility] HospitalIn the event this information is protected by the Federal Confidentiality of Alcohol and Drug Abuse Patient Records regulations: The Federal rules restrict any use of the information to criminally investigate or prosecute any alcohol or drug abuse patient.[facility] HospitalIn the event this information is protected by the Federal Confidentiality of Alcohol and Drug Abuse Patient Records regulations: The Federal rules restrict any use of the information to criminally investigate or prosecute any alcohol or drug abuse patient.[facility] HospitalIn the event this information is protected by the Federal Confidentiality of Alcohol and Drug Abuse Patient Records regulations: The Federal rules restrict any use of the information to criminally investigate or prosecute any alcohol or drug abuse patient.[facility] HospitalIn the event this information is protected by the Federal Confidentiality of Alcohol and Drug Abuse Patient Records regulations: The Federal rules restrict any use of the information to criminally investigate or prosecute any alcohol or drug abuse patient.[facility] HospitalIn the event this information is protected by the Federal Confidentiality of Alcohol and Drug Abuse Patient Records regulations: The Federal rules restrict any use of the information to criminally investigate or prosecute any alcohol or drug abuse patient.[facility] HospitalIn the event this information is protected by the Federal Confidentiality of Alcohol and Drug Abuse Patient Records regulations: The Federal rules restrict any use of the information to criminally investigate or prosecute any alcohol or drug abuse patient.[facility] HospitalIn the event this information is protected by the Federal Confidentiality of Alcohol and Drug Abuse Patient Records regulations: The Federal rules restrict any use of the information to criminally investigate or prosecute any alcohol or drug abuse patient.[facility] HospitalIn the event this information is protected by the Federal Confidentiality of Alcohol and Drug Abuse Patient Records regulations: The Federal rules restrict any use of the information to criminally investigate or prosecute any alcohol or drug abuse patient.[facility] HospitalIn the event this information is protected by the Federal Confidentiality of Alcohol and Drug Abuse Patient Records regulations: The Federal rules restrict any use of the information to criminally investigate or prosecute any alcohol or drug abuse patient.[facility] HospitalIn the event this information is protected by the Federal Confidentiality of Alcohol and Drug Abuse Patient Records regulations: The Federal rules restrict any use of the information to criminally investigate or prosecute any alcohol or drug abuse patient.[facility] HospitalIn the event this information is protected by the Federal Confidentiality of Alcohol and Drug Abuse Patient Records regulations: The Federal rules restrict any use of the information to criminally investigate or prosecute any alcohol or drug abuse patient.[facility] HospitalIn the event this information is protected by the Federal Confidentiality of Alcohol and Drug Abuse Patient Records regulations: The Federal rules restrict any use of the information to criminally investigate or prosecute any alcohol or drug abuse patient.[facility] HospitalIn the event this information is protected by the Federal Confidentiality of Alcohol and Drug Abuse Patient Records regulations: The Federal rules restrict any use of the information to criminally investigate or prosecute any alcohol or drug abuse patient.[facility] HospitalIn the event this information is protected by the Federal Confidentiality of Alcohol and Drug Abuse Patient Records regulations: The Federal rules restrict any use of the information to criminally investigate or prosecute any alcohol or drug abuse patient.[facility] HospitalIn the event this information is protected by the Federal Confidentiality of Alcohol and Drug Abuse Patient Records regulations: The Federal rules restrict any use of the information to criminally investigate or prosecute any alcohol or drug abuse patient.[facility] HospitalIn the event this information is protected by the Federal Confidentiality of Alcohol and Drug Abuse Patient Records regulations: The Federal rules restrict any use of the information to criminally investigate or prosecute any alcohol or drug abuse patient.[facility] HospitalIn the event this information is protected by the Federal Confidentiality of Alcohol and Drug Abuse Patient Records regulations: The Federal rules restrict any use of the information to criminally investigate or prosecute any alcohol or drug abuse patient.[facility] HospitalIn the event this information is protected by the Federal Confidentiality of Alcohol and Drug Abuse Patient Records regulations: The Federal rules restrict any use of the information to criminally investigate or prosecute any alcohol or drug abuse patient.[facility] HospitalIn the event this information is protected by the Federal Confidentiality of Alcohol and Drug Abuse Patient Records regulations: The Federal rules restrict any use of the information to criminally investigate or prosecute any alcohol or drug abuse patient.[facility] HospitalIn the event this information is protected by the Federal Confidentiality of Alcohol and Drug Abuse Patient Records regulations: The Federal rules restrict any use of the information to criminally investigate or prosecute any alcohol or drug abuse patient.[facility] HospitalIn the event this information is protected by the Federal Confidentiality of Alcohol and Drug Abuse Patient Records regulations: The Federal rules restrict any use of the information to criminally investigate or prosecute any alcohol or drug abuse patient.[facility] HospitalIn the event this information is protected by the Federal Confidentiality of Alcohol and Drug Abuse Patient Records regulations: The Federal rules restrict any use of the information to criminally investigate or prosecute any alcohol or drug abuse patient.[facility] HospitalIn the event this information is protected by the Federal Confidentiality of Alcohol and Drug Abuse Patient Records regulations: The Federal rules restrict any use of the information to criminally investigate or prosecute any alcohol or drug abuse patient.[facility] HospitalIn the event this information is protected by the Federal Confidentiality of Alcohol and Drug Abuse Patient Records regulations: The Federal rules restrict any use of the information to criminally investigate or prosecute any alcohol or drug abuse patient.[facility] HospitalIn the event this information is protected by the Federal Confidentiality of Alcohol and Drug Abuse Patient Records regulations: The Federal rules restrict any use of the information to criminally investigate or prosecute any alcohol or drug abuse patient.[facility] HospitalIn the event this information is protected by the Federal Confidentiality of Alcohol and Drug Abuse Patient Records regulations: The Federal rules restrict any use of the information to criminally investigate or prosecute any alcohol or drug abuse patient.[facility] HospitalIn the event this information is protected by the Federal Confidentiality of Alcohol and Drug Abuse Patient Records regulations: The Federal rules restrict any use of the information to criminally investigate or prosecute any alcohol or drug abuse patient.[facility] HospitalIn the event this information is protected by the Federal Confidentiality of Alcohol and Drug Abuse Patient Records regulations: The Federal rules restrict any use of the information to criminally investigate or prosecute any alcohol or drug abuse patient.[facility] HospitalIn the event this information is protected by the Federal Confidentiality of Alcohol and Drug Abuse Patient Records regulations: The Federal rules restrict any use of the information to criminally investigate or prosecute any alcohol or drug abuse patient.[facility] HospitalIn the event this information is protected by the Federal Confidentiality of Alcohol and Drug Abuse Patient Records regulations: The Federal rules restrict any use of the information to criminally investigate or prosecute any alcohol or drug abuse patient.[facility] HospitalIn the event this information is protected by the Federal Confidentiality of Alcohol and Drug Abuse Patient Records regulations: The Federal rules restrict any use of the information to criminally investigate or prosecute any alcohol or drug abuse patient.[facility] HospitalIn the event this information is protected by the Federal Confidentiality of Alcohol and Drug Abuse Patient Records regulations: The Federal rules restrict any use of the information to criminally investigate or prosecute any alcohol or drug abuse patient.[facility] HospitalIn the event this information is protected by the Federal Confidentiality of Alcohol and Drug Abuse Patient Records regulations: The Federal rules restrict any use of the information to criminally investigate or prosecute any alcohol or drug abuse patient.[facility] HospitalIn the event this information is protected by the Federal Confidentiality of Alcohol and Drug Abuse Patient Records regulations: The Federal rules restrict any use of the information to criminally investigate or prosecute any alcohol or drug abuse patient.[facility] HospitalIn the event this information is protected by the Federal Confidentiality of Alcohol and Drug Abuse Patient Records regulations: The Federal rules restrict any use of the information to criminally investigate or prosecute any alcohol or drug abuse patient.[facility] HospitalIn the event this information is protected by the Federal Confidentiality of Alcohol and Drug Abuse Patient Records regulations: The Federal rules restrict any use of the information to criminally investigate or prosecute any alcohol or drug abuse patient.[facility] HospitalIn the event this information is protected by the Federal Confidentiality of Alcohol and Drug Abuse Patient Records regulations: The Federal rules restrict any use of the information to criminally investigate or prosecute any alcohol or drug abuse patient.[facility] HospitalIn the event this information is protected by the Federal Confidentiality of Alcohol and Drug Abuse Patient Records regulations: The Federal rules restrict any use of the information to criminally investigate or prosecute any alcohol or drug abuse patient.[facility] HospitalIn the event this information is protected by the Federal Confidentiality of Alcohol and Drug Abuse Patient Records regulations: The Federal rules restrict any use of the information to criminally investigate or prosecute any alcohol or drug abuse patient.[facility] HospitalIn the event this information is protected by the Federal Confidentiality of Alcohol and Drug Abuse Patient Records regulations: The Federal rules restrict any use of the information to criminally investigate or prosecute any alcohol or drug abuse patient.[facility] HospitalIn the event this information is protected by the Federal Confidentiality of Alcohol and Drug Abuse Patient Records regulations: The Federal rules restrict any use of the information to criminally investigate or prosecute any alcohol or drug abuse patient.[facility] HospitalIn the event this information is protected by the Federal Confidentiality of Alcohol and Drug Abuse Patient Records regulations: The Federal rules restrict any use of the information to criminally investigate or prosecute any alcohol or drug abuse patient.[facility] HospitalIn the event this information is protected by the Federal Confidentiality of Alcohol and Drug Abuse Patient Records regulations: The Federal rules restrict any use of the information to criminally investigate or prosecute any alcohol or drug abuse patient.[facility] HospitalIn the event this information is protected by the Federal Confidentiality of Alcohol and Drug Abuse Patient Records regulations: The Federal rules restrict any use of the information to criminally investigate or prosecute any alcohol or drug abuse patient.[facility] HospitalIn the event this information is protected by the Federal Confidentiality of Alcohol and Drug Abuse Patient Records regulations: The Federal rules restrict any use of the information to criminally investigate or prosecute any alcohol or drug abuse patient.[facility] HospitalIn the event this information is protected by the Federal Confidentiality of Alcohol and Drug Abuse Patient Records regulations: The Federal rules restrict any use of the information to criminally investigate or prosecute any alcohol or drug abuse patient.[facility] HospitalIn the event this information is protected by the Federal Confidentiality of Alcohol and Drug Abuse Patient Records regulations: The Federal rules restrict any use of the information to criminally investigate or prosecute any alcohol or drug abuse patient.[facility] HospitalIn the event this information is protected by the Federal Confidentiality of Alcohol and Drug Abuse Patient Records regulations: The Federal rules restrict any use of the information to criminally investigate or prosecute any alcohol or drug abuse patient.[facility] HospitalIn the event this information is protected by the Federal Confidentiality of Alcohol and Drug Abuse Patient Records regulations: The Federal rules restrict any use of the information to criminally investigate or prosecute any alcohol or drug abuse patient.[facility] HospitalIn the event this information is protected by the Federal Confidentiality of Alcohol and Drug Abuse Patient Records regulations: The Federal rules restrict any use of the information to criminally investigate or prosecute any alcohol or drug abuse patient.[facility] HospitalIn the event this information is protected by the Federal Confidentiality of Alcohol and Drug Abuse Patient Records regulations: The Federal rules restrict any use of the information to criminally investigate or prosecute any alcohol or drug abuse patient.[facility] HospitalIn the event this information is protected by the Federal Confidentiality of Alcohol and Drug Abuse Patient Records regulations: The Federal rules restrict any use of the information to criminally investigate or prosecute any alcohol or drug abuse patient.[facility] HospitalIn the event this information is protected by the Federal Confidentiality of Alcohol and Drug Abuse Patient Records regulations: The Federal rules restrict any use of the information to criminally investigate or prosecute any alcohol or drug abuse patient.[facility] HospitalIn the event this information is protected by the Federal Confidentiality of Alcohol and Drug Abuse Patient Records regulations: The Federal rules restrict any use of the information to criminally investigate or prosecute any alcohol or drug abuse patient.[facility] HospitalIn the event this information is protected by the Federal Confidentiality of Alcohol and Drug Abuse Patient Records regulations: The Federal rules restrict any use of the information to criminally investigate or prosecute any alcohol or drug abuse patient.[facility] HospitalIn the event this information is protected by the Federal Confidentiality of Alcohol and Drug Abuse Patient Records regulations: The Federal rules restrict any use of the information to criminally investigate or prosecute any alcohol or drug abuse patient.[facility] HospitalIn the event this information is protected by the Federal Confidentiality of Alcohol and Drug Abuse Patient Records regulations: The Federal rules restrict any use of the information to criminally investigate or prosecute any alcohol or drug abuse patient.[facility] HospitalIn the event this information is protected by the Federal Confidentiality of Alcohol and Drug Abuse Patient Records regulations: The Federal rules restrict any use of the information to criminally investigate or prosecute any alcohol or drug abuse patient.[facility] HospitalIn the event this information is protected by the Federal Confidentiality of Alcohol and Drug Abuse Patient Records regulations: The Federal rules restrict any use of the information to criminally investigate or prosecute any alcohol or drug abuse patient.[facility] HospitalIn the event this information is protected by the Federal Confidentiality of Alcohol and Drug Abuse Patient Records regulations: The Federal rules restrict any use of the information to criminally investigate or prosecute any alcohol or drug abuse patient.[facility] HospitalIn the event this information is protected by the Federal Confidentiality of Alcohol and Drug Abuse Patient Records regulations: The Federal rules restrict any use of the information to criminally investigate or prosecute any alcohol or drug abuse patient.[facility] HospitalIn the event this information is protected by the Federal Confidentiality of Alcohol and Drug Abuse Patient Records regulations: The Federal rules restrict any use of the information to criminally investigate or prosecute any alcohol or drug abuse patient.[facility] HospitalIn the event this information is protected by the Federal Confidentiality of Alcohol and Drug Abuse Patient Records regulations: The Federal rules restrict any use of the information to criminally investigate or prosecute any alcohol or drug abuse patient.[facility] HospitalIn the event this information is protected by the Federal Confidentiality of Alcohol and Drug Abuse Patient Records regulations: The Federal rules restrict any use of the information to criminally investigate or prosecute any alcohol or drug abuse patient.[facility] HospitalIn the event this information is protected by the Federal Confidentiality of Alcohol and Drug Abuse Patient Records regulations: The Federal rules restrict any use of the information to criminally investigate or prosecute any alcohol or drug abuse patient.[facility] HospitalIn the event this information is protected by the Federal Confidentiality of Alcohol and Drug Abuse Patient Records regulations: The Federal rules restrict any use of the information to criminally investigate or prosecute any alcohol or drug abuse patient.[facility] HospitalIn the event this information is protected by the Federal Confidentiality of Alcohol and Drug Abuse Patient Records regulations: The Federal rules restrict any use of the information to criminally investigate or prosecute any alcohol or drug abuse patient.[facility] HospitalIn the event this information is protected by the Federal Confidentiality of Alcohol and Drug Abuse Patient Records regulations: The Federal rules restrict any use of the information to criminally investigate or prosecute any alcohol or drug abuse patient.[facility] HospitalIn the event this information is protected by the Federal Confidentiality of Alcohol and Drug Abuse Patient Records regulations: The Federal rules restrict any use of the information to criminally investigate or prosecute any alcohol or drug abuse patient.[facility] HospitalIn the event this information is protected by the Federal Confidentiality of Alcohol and Drug Abuse Patient Records regulations: The Federal rules restrict any use of the information to criminally investigate or prosecute any alcohol or drug abuse patient.[facility] HospitalIn the event this information is protected by the Federal Confidentiality of Alcohol and Drug Abuse Patient Records regulations: The Federal rules restrict any use of the information to criminally investigate or prosecute any alcohol or drug abuse patient.[facility] HospitalIn the event this information is protected by the Federal Confidentiality of Alcohol and Drug Abuse Patient Records regulations: The Federal rules restrict any use of the information to criminally investigate or prosecute any alcohol or drug abuse patient.[facility] HospitalIn the event this information is protected by the Federal Confidentiality of Alcohol and Drug Abuse Patient Records regulations: The Federal rules restrict any use of the information to criminally investigate or prosecute any alcohol or drug abuse patient.[facility] HospitalIn the event this information is protected by the Federal Confidentiality of Alcohol and Drug Abuse Patient Records regulations: The Federal rules restrict any use of the information to criminally investigate or prosecute any alcohol or drug abuse patient.[facility] HospitalIn the event this information is protected by the Federal Confidentiality of Alcohol and Drug Abuse Patient Records regulations: The Federal rules restrict any use of the information to criminally investigate or prosecute any alcohol or drug abuse patient.[facility] HospitalIn the event this information is protected by the Federal Confidentiality of Alcohol and Drug Abuse Patient Records regulations: The Federal rules restrict any use of the information to criminally investigate or prosecute any alcohol or drug abuse patient.[facility] HospitalIn the event this information is protected by the Federal Confidentiality of Alcohol and Drug Abuse Patient Records regulations: The Federal rules restrict any use of the information to criminally investigate or prosecute any alcohol or drug abuse patient.[facility] HospitalIn the event this information is protected by the Federal Confidentiality of Alcohol and Drug Abuse Patient Records regulations: The Federal rules restrict any use of the information to criminally investigate or prosecute any alcohol or drug abuse patient.[facility] HospitalIn the event this information is protected by the Federal Confidentiality of Alcohol and Drug Abuse Patient Records regulations: The Federal rules restrict any use of the information to criminally investigate or prosecute any alcohol or drug abuse patient.[facility] HospitalIn the event this information is protected by the Federal Confidentiality of Alcohol and Drug Abuse Patient Records regulations: The Federal rules restrict any use of the information to criminally investigate or prosecute any alcohol or drug abuse patient.[facility] HospitalIn the event this information is protected by the Federal Confidentiality of Alcohol and Drug Abuse Patient Records regulations: The Federal rules restrict any use of the information to criminally investigate or prosecute any alcohol or drug abuse patient.[facility] HospitalIn the event this information is protected by the Federal Confidentiality of Alcohol and Drug Abuse Patient Records regulations: The Federal rules restrict any use of the information to criminally investigate or prosecute any alcohol or drug abuse patient.[facility] HospitalIn the event this information is protected by the Federal Confidentiality of Alcohol and Drug Abuse Patient Records regulations: The Federal rules restrict any use of the information to criminally investigate or prosecute any alcohol or drug abuse patient.[facility] HospitalIn the event this information is protected by the Federal Confidentiality of Alcohol and Drug Abuse Patient Records regulations: The Federal rules restrict any use of the information to criminally investigate or prosecute any alcohol or drug abuse patient.[facility] HospitalIn the event this information is protected by the Federal Confidentiality of Alcohol and Drug Abuse Patient Records regulations: The Federal rules restrict any use of the information to criminally investigate or prosecute any alcohol or drug abuse patient.[facility] HospitalIn the event this information is protected by the Federal Confidentiality of Alcohol and Drug Abuse Patient Records regulations: The Federal rules restrict any use of the information to criminally investigate or prosecute any alcohol or drug abuse patient.[facility] HospitalIn the event this information is protected by the Federal Confidentiality of Alcohol and Drug Abuse Patient Records regulations: The Federal rules restrict any use of the information to criminally investigate or prosecute any alcohol or drug abuse patient.[facility] HospitalIn the event this information is protected by the Federal Confidentiality of Alcohol and Drug Abuse Patient Records regulations: The Federal rules restrict any use of the information to criminally investigate or prosecute any alcohol or drug abuse patient.[facility] HospitalIn the event this information is protected by the Federal Confidentiality of Alcohol and Drug Abuse Patient Records regulations: The Federal rules restrict any use of the information to criminally investigate or prosecute any alcohol or drug abuse patient.[facility] HospitalIn the event this information is protected by the Federal Confidentiality of Alcohol and Drug Abuse Patient Records regulations: The Federal rules restrict any use of the information to criminally investigate or prosecute any alcohol or drug abuse patient.[facility] HospitalIn the event this information is protected by the Federal Confidentiality of Alcohol and Drug Abuse Patient Records regulations: The Federal rules restrict any use of the information to criminally investigate or prosecute any alcohol or drug abuse patient.[facility] HospitalIn the event this information is protected by the Federal Confidentiality of Alcohol and Drug Abuse Patient Records regulations: The Federal rules restrict any use of the information to criminally investigate or prosecute any alcohol or drug abuse patient.[facility] HospitalIn the event this information is protected by the Federal Confidentiality of Alcohol and Drug Abuse Patient Records regulations: The Federal rules restrict any use of the information to criminally investigate or prosecute any alcohol or drug abuse patient.[facility] HospitalIn the event this information is protected by the Federal Confidentiality of Alcohol and Drug Abuse Patient Records regulations: The Federal rules restrict any use of the information to criminally investigate or prosecute any alcohol or drug abuse patient.[facility] HospitalIn the event this information is protected by the Federal Confidentiality of Alcohol and Drug Abuse Patient Records regulations: The Federal rules restrict any use of the information to criminally investigate or prosecute any alcohol or drug abuse patient.[facility] HospitalIn the event this information is protected by the Federal Confidentiality of Alcohol and Drug Abuse Patient Records regulations: The Federal rules restrict any use of the information to criminally investigate or prosecute any alcohol or drug abuse patient.[facility] HospitalIn the event this information is protected by the Federal Confidentiality of Alcohol and Drug Abuse Patient Records regulations: The Federal rules restrict any use of the information to criminally investigate or prosecute any alcohol or drug abuse patient.[facility] HospitalIn the event this information is protected by the Federal Confidentiality of Alcohol and Drug Abuse Patient Records regulations: The Federal rules restrict any use of the information to criminally investigate or prosecute any alcohol or drug abuse patient.[facility] HospitalIn the event this information is protected by the Federal Confidentiality of Alcohol and Drug Abuse Patient Records regulations: The Federal rules restrict any use of the information to criminally investigate or prosecute any alcohol or drug abuse patient.[facility] HospitalIn the event this information is protected by the Federal Confidentiality of Alcohol and Drug Abuse Patient Records regulations: The Federal rules restrict any use of the information to criminally investigate or prosecute any alcohol or drug abuse patient.[facility] HospitalIn the event this information is protected by the Federal Confidentiality of Alcohol and Drug Abuse Patient Records regulations: The Federal rules restrict any use of the information to criminally investigate or prosecute any alcohol or drug abuse patient.[facility] HospitalIn the event this information is protected by the Federal Confidentiality of Alcohol and Drug Abuse Patient Records regulations: The Federal rules restrict any use of the information to criminally investigate or prosecute any alcohol or drug abuse patient.[facility] HospitalIn the event this information is protected by the Federal Confidentiality of Alcohol and Drug Abuse Patient Records regulations: The Federal rules restrict any use of the information to criminally investigate or prosecute any alcohol or drug abuse patient.[facility] HospitalIn the event this information is protected by the Federal Confidentiality of Alcohol and Drug Abuse Patient Records regulations: The Federal rules restrict any use of the information to criminally investigate or prosecute any alcohol or drug abuse patient.[facility] HospitalIn the event this information is protected by the Federal Confidentiality of Alcohol and Drug Abuse Patient Records regulations: The Federal rules restrict any use of the information to criminally investigate or prosecute any alcohol or drug abuse patient.[facility] HospitalIn the event this information is protected by the Federal Confidentiality of Alcohol and Drug Abuse Patient Records regulations: The Federal rules restrict any use of the information to criminally investigate or prosecute any alcohol or drug abuse patient.[facility] HospitalIn the event this information is protected by the Federal Confidentiality of Alcohol and Drug Abuse Patient Records regulations: The Federal rules restrict any use of the information to criminally investigate or prosecute any alcohol or drug abuse patient.[facility] HospitalIn the event this information is protected by the Federal Confidentiality of Alcohol and Drug Abuse Patient Records regulations: The Federal rules restrict any use of the information to criminally investigate or prosecute any alcohol or drug abuse patient.[facility] HospitalIn the event this information is protected by the Federal Confidentiality of Alcohol and Drug Abuse Patient Records regulations: The Federal rules restrict any use of the information to criminally investigate or prosecute any alcohol or drug abuse patient.[facility] HospitalIn the event this information is protected by the Federal Confidentiality of Alcohol and Drug Abuse Patient Records regulations: The Federal rules restrict any use of the information to criminally investigate or prosecute any alcohol or drug abuse patient.[facility] HospitalIn the event this information is protected by the Federal Confidentiality of Alcohol and Drug Abuse Patient Records regulations: The Federal rules restrict any use of the information to criminally investigate or prosecute any alcohol or drug abuse patient.[facility] HospitalIn the event this information is protected by the Federal Confidentiality of Alcohol and Drug Abuse Patient Records regulations: The Federal rules restrict any use of the information to criminally investigate or prosecute any alcohol or drug abuse patient.[facility] HospitalIn the event this information is protected by the Federal Confidentiality of Alcohol and Drug Abuse Patient Records regulations: The Federal rules restrict any use of the information to criminally investigate or prosecute any alcohol or drug abuse patient.[facility] HospitalIn the event this information is protected by the Federal Confidentiality of Alcohol and Drug Abuse Patient Records regulations: The Federal rules restrict any use of the information to criminally investigate or prosecute any alcohol or drug abuse patient.[facility] HospitalIn the event this information is protected by the Federal Confidentiality of Alcohol and Drug Abuse Patient Records regulations: The Federal rules restrict any use of the information to criminally investigate or prosecute any alcohol or drug abuse patient.[facility] HospitalIn the event this information is protected by the Federal Confidentiality of Alcohol and Drug Abuse Patient Records regulations: The Federal rules restrict any use of the information to criminally investigate or prosecute any alcohol or drug abuse patient.[facility] HospitalIn the event this information is protected by the Federal Confidentiality of Alcohol and Drug Abuse Patient Records regulations: The Federal rules restrict any use of the information to criminally investigate or prosecute any alcohol or drug abuse patient.[facility] HospitalIn the event this information is protected by the Federal Confidentiality of Alcohol and Drug Abuse Patient Records regulations: The Federal rules restrict any use of the information to criminally investigate or prosecute any alcohol or drug abuse patient.[facility] HospitalIn the event this information is protected by the Federal Confidentiality of Alcohol and Drug Abuse Patient Records regulations: The Federal rules restrict any use of the information to criminally investigate or prosecute any alcohol or drug abuse patient.[facility] HospitalIn the event this information is protected by the Federal Confidentiality of Alcohol and Drug Abuse Patient Records regulations: The Federal rules restrict any use of the information to criminally investigate or prosecute any alcohol or drug abuse patient.[facility] HospitalIn the event this information is protected by the Federal Confidentiality of Alcohol and Drug Abuse Patient Records regulations: The Federal rules restrict any use of the information to criminally investigate or prosecute any alcohol or drug abuse patient.[facility] HospitalIn the event this information is protected by the Federal Confidentiality of Alcohol and Drug Abuse Patient Records regulations: The Federal rules restrict any use of the information to criminally investigate or prosecute any alcohol or drug abuse patient.[facility] HospitalIn the event this information is protected by the Federal Confidentiality of Alcohol and Drug Abuse Patient Records regulations: The Federal rules restrict any use of the information to criminally investigate or prosecute any alcohol or drug abuse patient.[facility] HospitalIn the event this information is protected by the Federal Confidentiality of Alcohol and Drug Abuse Patient Records regulations: The Federal rules restrict any use of the information to criminally investigate or prosecute any alcohol or drug abuse patient.[facility] HospitalIn the event this information is protected by the Federal Confidentiality of Alcohol and Drug Abuse Patient Records regulations: The Federal rules restrict any use of the information to criminally investigate or prosecute any alcohol or drug abuse patient.[facility] HospitalIn the event this information is protected by the Federal Confidentiality of Alcohol and Drug Abuse Patient Records regulations: The Federal rules restrict any use of the information to criminally investigate or prosecute any alcohol or drug abuse patient.[facility] HospitalIn the event this information is protected by the Federal Confidentiality of Alcohol and Drug Abuse Patient Records regulations: The Federal rules restrict any use of the information to criminally investigate or prosecute any alcohol or drug abuse patient.[facility] HospitalIn the event this information is protected by the Federal Confidentiality of Alcohol and Drug Abuse Patient Records regulations: The Federal rules restrict any use of the information to criminally investigate or prosecute any alcohol or drug abuse patient.[facility] HospitalIn the event this information is protected by the Federal Confidentiality of Alcohol and Drug Abuse Patient Records regulations: The Federal rules restrict any use of the information to criminally investigate or prosecute any alcohol or drug abuse patient.[facility] HospitalIn the event this information is protected by the Federal Confidentiality of Alcohol and Drug Abuse Patient Records regulations: The Federal rules restrict any use of the information to criminally investigate or prosecute any alcohol or drug abuse patient.[facility] HospitalIn the event this information is protected by the Federal Confidentiality of Alcohol and Drug Abuse Patient Records regulations: The Federal rules restrict any use of the information to criminally investigate or prosecute any alcohol or drug abuse patient.[facility] HospitalIn the event this information is protected by the Federal Confidentiality of Alcohol and Drug Abuse Patient Records regulations: The Federal rules restrict any use of the information to criminally investigate or prosecute any alcohol or drug abuse patient.[facility] HospitalIn the event this information is protected by the Federal Confidentiality of Alcohol and Drug Abuse Patient Records regulations: The Federal rules restrict any use of the information to criminally investigate or prosecute any alcohol or drug abuse patient.[facility] HospitalIn the event this information is protected by the Federal Confidentiality of Alcohol and Drug Abuse Patient Records regulations: The Federal rules restrict any use of the information to criminally investigate or prosecute any alcohol or drug abuse patient.[facility] HospitalIn the event this information is protected by the Federal Confidentiality of Alcohol and Drug Abuse Patient Records regulations: The Federal rules restrict any use of the information to criminally investigate or prosecute any alcohol or drug abuse patient.[facility] HospitalIn the event this information is protected by the Federal Confidentiality of Alcohol and Drug Abuse Patient Records regulations: The Federal rules restrict any use of the information to criminally investigate or prosecute any alcohol or drug abuse patient.[facility] HospitalIn the event this information is protected by the Federal Confidentiality of Alcohol and Drug Abuse Patient Records regulations: The Federal rules restrict any use of the information to criminally investigate or prosecute any alcohol or drug abuse patient.[facility] HospitalIn the event this information is protected by the Federal Confidentiality of Alcohol and Drug Abuse Patient Records regulations: The Federal rules restrict any use of the information to criminally investigate or prosecute any alcohol or drug abuse patient.[facility] HospitalIn the event this information is protected by the Federal Confidentiality of Alcohol and Drug Abuse Patient Records regulations: The Federal rules restrict any use of the information to criminally investigate or prosecute any alcohol or drug abuse patient.[facility] HospitalIn the event this information is protected by the Federal Confidentiality of Alcohol and Drug Abuse Patient Records regulations: The Federal rules restrict any use of the information to criminally investigate or prosecute any alcohol or drug abuse patient.[facility] HospitalIn the event this information is protected by the Federal Confidentiality of Alcohol and Drug Abuse Patient Records regulations: The Federal rules restrict any use of the information to criminally investigate or prosecute any alcohol or drug abuse patient.[facility] HospitalIn the event this information is protected by the Federal Confidentiality of Alcohol and Drug Abuse Patient Records regulations: The Federal rules restrict any use of the information to criminally investigate or prosecute any alcohol or drug abuse patient.[facility] HospitalIn the event this information is protected by the Federal Confidentiality of Alcohol and Drug Abuse Patient Records regulations: The Federal rules restrict any use of the information to criminally investigate or prosecute any alcohol or drug abuse patient.[facility] HospitalIn the event this information is protected by the Federal Confidentiality of Alcohol and Drug Abuse Patient Records regulations: The Federal rules restrict any use of the information to criminally investigate or prosecute any alcohol or drug abuse patient.[facility] HospitalIn the event this information is protected by the Federal Confidentiality of Alcohol and Drug Abuse Patient Records regulations: The Federal rules restrict any use of the information to criminally investigate or prosecute any alcohol or drug abuse patient.[facility] HospitalIn the event this information is protected by the Federal Confidentiality of Alcohol and Drug Abuse Patient Records regulations: The Federal rules restrict any use of the information to criminally investigate or prosecute any alcohol or drug abuse patient.[facility] HospitalIn the event this information is protected by the Federal Confidentiality of Alcohol and Drug Abuse Patient Records regulations: The Federal rules restrict any use of the information to criminally investigate or prosecute any alcohol or drug abuse patient.[facility] HospitalIn the event this information is protected by the Federal Confidentiality of Alcohol and Drug Abuse Patient Records regulations: The Federal rules restrict any use of the information to criminally investigate or prosecute any alcohol or drug abuse patient.[facility] HospitalIn the event this information is protected by the Federal Confidentiality of Alcohol and Drug Abuse Patient Records regulations: The Federal rules restrict any use of the information to criminally investigate or prosecute any alcohol or drug abuse patient.[facility] HospitalIn the event this information is protected by the Federal Confidentiality of Alcohol and Drug Abuse Patient Records regulations: The Federal rules restrict any use of the information to criminally investigate or prosecute any alcohol or drug abuse patient.[facility] HospitalIn the event this information is protected by the Federal Confidentiality of Alcohol and Drug Abuse Patient Records regulations: The Federal rules restrict any use of the information to criminally investigate or prosecute any alcohol or drug abuse patient.[facility] HospitalIn the event this information is protected by the Federal Confidentiality of Alcohol and Drug Abuse Patient Records regulations: The Federal rules restrict any use of the information to criminally investigate or prosecute any alcohol or drug abuse patient.[facility] HospitalIn the event this information is protected by the Federal Confidentiality of Alcohol and Drug Abuse Patient Records regulations: The Federal rules restrict any use of the information to criminally investigate or prosecute any alcohol or drug abuse patient.[facility] HospitalIn the event this information is protected by the Federal Confidentiality of Alcohol and Drug Abuse Patient Records regulations: The Federal rules restrict any use of the information to criminally investigate or prosecute any alcohol or drug abuse patient.[facility] HospitalIn the event this information is protected by the Federal Confidentiality of Alcohol and Drug Abuse Patient Records regulations: The Federal rules restrict any use of the information to criminally investigate or prosecute any alcohol or drug abuse patient.[facility] HospitalIn the event this information is protected by the Federal Confidentiality of Alcohol and Drug Abuse Patient Records regulations: The Federal rules restrict any use of the information to criminally investigate or prosecute any alcohol or drug abuse patient.[facility] HospitalIn the event this information is protected by the Federal Confidentiality of Alcohol and Drug Abuse Patient Records regulations: The Federal rules restrict any use of the information to criminally investigate or prosecute any alcohol or drug abuse patient.[facility] HospitalIn the event this information is protected by the Federal Confidentiality of Alcohol and Drug Abuse Patient Records regulations: The Federal rules restrict any use of the information to criminally investigate or prosecute any alcohol or drug abuse patient.[facility] HospitalIn the event this information is protected by the Federal Confidentiality of Alcohol and Drug Abuse Patient Records regulations: The Federal rules restrict any use of the information to criminally investigate or prosecute any alcohol or drug abuse patient.[facility] HospitalIn the event this information is protected by the Federal Confidentiality of Alcohol and Drug Abuse Patient Records regulations: The Federal rules restrict any use of the information to criminally investigate or prosecute any alcohol or drug abuse patient.[facility] HospitalIn the event this information is protected by the Federal Confidentiality of Alcohol and Drug Abuse Patient Records regulations: The Federal rules restrict any use of the information to criminally investigate or prosecute any alcohol or drug abuse patient.[facility] HospitalIn the event this information is protected by the Federal Confidentiality of Alcohol and Drug Abuse Patient Records regulations: The Federal rules restrict any use of the information to criminally investigate or prosecute any alcohol or drug abuse patient.[facility] HospitalIn the event this information is protected by the Federal Confidentiality of Alcohol and Drug Abuse Patient Records regulations: The Federal rules restrict any use of the information to criminally investigate or prosecute any alcohol or drug abuse patient.[facility] HospitalIn the event this information is protected by the Federal Confidentiality of Alcohol and Drug Abuse Patient Records regulations: The Federal rules restrict any use of the information to criminally investigate or prosecute any alcohol or drug abuse patient.[facility] HospitalIn the event this information is protected by the Federal Confidentiality of Alcohol and Drug Abuse Patient Records regulations: The Federal rules restrict any use of the information to criminally investigate or prosecute any alcohol or drug abuse patient.[facility] HospitalIn the event this information is protected by the Federal Confidentiality of Alcohol and Drug Abuse Patient Records regulations: The Federal rules restrict any use of the information to criminally investigate or prosecute any alcohol or drug abuse patient.[facility] HospitalIn the event this information is protected by the Federal Confidentiality of Alcohol and Drug Abuse Patient Records regulations: The Federal rules restrict any use of the information to criminally investigate or prosecute any alcohol or drug abuse patient.[facility] HospitalIn the event this information is protected by the Federal Confidentiality of Alcohol and Drug Abuse Patient Records regulations: The Federal rules restrict any use of the information to criminally investigate or prosecute any alcohol or drug abuse patient.[facility] HospitalIn the event this information is protected by the Federal Confidentiality of Alcohol and Drug Abuse Patient Records regulations: The Federal rules restrict any use of the information to criminally investigate or prosecute any alcohol or drug abuse patient.[facility] HospitalIn the event this information is protected by the Federal Confidentiality of Alcohol and Drug Abuse Patient Records regulations: The Federal rules restrict any use of the information to criminally investigate or prosecute any alcohol or drug abuse patient.[facility] HospitalIn the event this information is protected by the Federal Confidentiality of Alcohol and Drug Abuse Patient Records regulations: The Federal rules restrict any use of the information to criminally investigate or prosecute any alcohol or drug abuse patient.[facility] HospitalIn the event this information is protected by the Federal Confidentiality of Alcohol and Drug Abuse Patient Records regulations: The Federal rules restrict any use of the information to criminally investigate or prosecute any alcohol or drug abuse patient.[facility] HospitalIn the event this information is protected by the Federal Confidentiality of Alcohol and Drug Abuse Patient Records regulations: The Federal rules restrict any use of the information to criminally investigate or prosecute any alcohol or drug abuse patient.[facility] HospitalIn the event this information is protected by the Federal Confidentiality of Alcohol and Drug Abuse Patient Records regulations: The Federal rules restrict any use of the information to criminally investigate or prosecute any alcohol or drug abuse patient.[facility] HospitalIn the event this information is protected by the Federal Confidentiality of Alcohol and Drug Abuse Patient Records regulations: The Federal rules restrict any use of the information to criminally investigate or prosecute any alcohol or drug abuse patient.[facility] HospitalIn the event this information is protected by the Federal Confidentiality of Alcohol and Drug Abuse Patient Records regulations: The Federal rules restrict any use of the information to criminally investigate or prosecute any alcohol or drug abuse patient.[facility] HospitalIn the event this information is protected by the Federal Confidentiality of Alcohol and Drug Abuse Patient Records regulations: The Federal rules restrict any use of the information to criminally investigate or prosecute any alcohol or drug abuse patient.[facility] HospitalIn the event this information is protected by the Federal Confidentiality of Alcohol and Drug Abuse Patient Records regulations: The Federal rules restrict any use of the information to criminally investigate or prosecute any alcohol or drug abuse patient.[facility] HospitalIn the event this information is protected by the Federal Confidentiality of Alcohol and Drug Abuse Patient Records regulations: The Federal rules restrict any use of the information to criminally investigate or prosecute any alcohol or drug abuse patient.[facility] HospitalIn the event this information is protected by the Federal Confidentiality of Alcohol and Drug Abuse Patient Records regulations: The Federal rules restrict any use of the information to criminally investigate or prosecute any alcohol or drug abuse patient.[facility] HospitalIn the event this information is protected by the Federal Confidentiality of Alcohol and Drug Abuse Patient Records regulations: The Federal rules restrict any use of the information to criminally investigate or prosecute any alcohol or drug abuse patient.[facility] HospitalIn the event this information is protected by the Federal Confidentiality of Alcohol and Drug Abuse Patient Records regulations: The Federal rules restrict any use of the information to criminally investigate or prosecute any alcohol or drug abuse patient.[facility] HospitalIn the event this information is protected by the Federal Confidentiality of Alcohol and Drug Abuse Patient Records regulations: The Federal rules restrict any use of the information to criminally investigate or prosecute any alcohol or drug abuse patient.[facility] HospitalIn the event this information is protected by the Federal Confidentiality of Alcohol and Drug Abuse Patient Records regulations: The Federal rules restrict any use of the information to criminally investigate or prosecute any alcohol or drug abuse patient.[facility] HospitalIn the event this information is protected by the Federal Confidentiality of Alcohol and Drug Abuse Patient Records regulations: The Federal rules restrict any use of the information to criminally investigate or prosecute any alcohol or drug abuse patient.[facility] HospitalIn the event this information is protected by the Federal Confidentiality of Alcohol and Drug Abuse Patient Records regulations: The Federal rules restrict any use of the information to criminally investigate or prosecute any alcohol or drug abuse patient.[facility] HospitalIn the event this information is protected by the Federal Confidentiality of Alcohol and Drug Abuse Patient Records regulations: The Federal rules restrict any use of the information to criminally investigate or prosecute any alcohol or drug abuse patient.[facility] HospitalIn the event this information is protected by the Federal Confidentiality of Alcohol and Drug Abuse Patient Records regulations: The Federal rules restrict any use of the information to criminally investigate or prosecute any alcohol or drug abuse patient.[facility] HospitalIn the event this information is protected by the Federal Confidentiality of Alcohol and Drug Abuse Patient Records regulations: The Federal rules restrict any use of the information to criminally investigate or prosecute any alcohol or drug abuse patient.[facility] HospitalIn the event this information is protected by the Federal Confidentiality of Alcohol and Drug Abuse Patient Records regulations: The Federal rules restrict any use of the information to criminally investigate or prosecute any alcohol or drug abuse patient.[facility] HospitalIn the event this information is protected by the Federal Confidentiality of Alcohol and Drug Abuse Patient Records regulations: The Federal rules restrict any use of the information to criminally investigate or prosecute any alcohol or drug abuse patient.[facility] HospitalIn the event this information is protected by the Federal Confidentiality of Alcohol and Drug Abuse Patient Records regulations: The Federal rules restrict any use of the information to criminally investigate or prosecute any alcohol or drug abuse patient.[facility] HospitalIn the event this information is protected by the Federal Confidentiality of Alcohol and Drug Abuse Patient Records regulations: The Federal rules restrict any use of the information to criminally investigate or prosecute any alcohol or drug abuse patient.[facility] HospitalIn the event this information is protected by the Federal Confidentiality of Alcohol and Drug Abuse Patient Records regulations: The Federal rules restrict any use of the information to criminally investigate or prosecute any alcohol or drug abuse patient.[facility] HospitalIn the event this information is protected by the Federal Confidentiality of Alcohol and Drug Abuse Patient Records regulations: The Federal rules restrict any use of the information to criminally investigate or prosecute any alcohol or drug abuse patient.[facility] HospitalIn the event this information is protected by the Federal Confidentiality of Alcohol and Drug Abuse Patient Records regulations: The Federal rules restrict any use of the information to criminally investigate or prosecute any alcohol or drug abuse patient.[facility] HospitalIn the event this information is protected by the Federal Confidentiality of Alcohol and Drug Abuse Patient Records regulations: The Federal rules restrict any use of the information to criminally investigate or prosecute any alcohol or drug abuse patient.[facility] HospitalIn the event this information is protected by the Federal Confidentiality of Alcohol and Drug Abuse Patient Records regulations: The Federal rules restrict any use of the information to criminally investigate or prosecute any alcohol or drug abuse patient.[facility] HospitalIn the event this information is protected by the Federal Confidentiality of Alcohol and Drug Abuse Patient Records regulations: The Federal rules restrict any use of the information to criminally investigate or prosecute any alcohol or drug abuse patient.[facility] HospitalIn the event this information is protected by the Federal Confidentiality of Alcohol and Drug Abuse Patient Records regulations: The Federal rules restrict any use of the information to criminally investigate or prosecute any alcohol or drug abuse patient.[facility] HospitalIn the event this information is protected by the Federal Confidentiality of Alcohol and Drug Abuse Patient Records regulations: The Federal rules restrict any use of the information to criminally investigate or prosecute any alcohol or drug abuse patient.[facility] HospitalIn the event this information is protected by the Federal Confidentiality of Alcohol and Drug Abuse Patient Records regulations: The Federal rules restrict any use of the information to criminally investigate or prosecute any alcohol or drug abuse patient.[facility] HospitalIn the event this information is protected by the Federal Confidentiality of Alcohol and Drug Abuse Patient Records regulations: The Federal rules restrict any use of the information to criminally investigate or prosecute any alcohol or drug abuse patient.[facility] HospitalIn the event this information is protected by the Federal Confidentiality of Alcohol and Drug Abuse Patient Records regulations: The Federal rules restrict any use of the information to criminally investigate or prosecute any alcohol or drug abuse patient.[facility] HospitalIn the event this information is protected by the Federal Confidentiality of Alcohol and Drug Abuse Patient Records regulations: The Federal rules restrict any use of the information to criminally investigate or prosecute any alcohol or drug abuse patient.[facility] HospitalIn the event this information is protected by the Federal Confidentiality of Alcohol and Drug Abuse Patient Records regulations: The Federal rules restrict any use of the information to criminally investigate or prosecute any alcohol or drug abuse patient.[facility] HospitalIn the event this information is protected by the Federal Confidentiality of Alcohol and Drug Abuse Patient Records regulations: The Federal rules restrict any use of the information to criminally investigate or prosecute any alcohol or drug abuse patient.[facility] HospitalIn the event this information is protected by the Federal Confidentiality of Alcohol and Drug Abuse Patient Records regulations: The Federal rules restrict any use of the information to criminally investigate or prosecute any alcohol or drug abuse patient.[facility] HospitalIn the event this information is protected by the Federal Confidentiality of Alcohol and Drug Abuse Patient Records regulations: The Federal rules restrict any use of the information to criminally investigate or prosecute any alcohol or drug abuse patient.[facility] HospitalIn the event this information is protected by the Federal Confidentiality of Alcohol and Drug Abuse Patient Records regulations: The Federal rules restrict any use of the information to criminally investigate or prosecute any alcohol or drug abuse patient.[facility] HospitalIn the event this information is protected by the Federal Confidentiality of Alcohol and Drug Abuse Patient Records regulations: The Federal rules restrict any use of the information to criminally investigate or prosecute any alcohol or drug abuse patient.[facility] HospitalIn the event this information is protected by the Federal Confidentiality of Alcohol and Drug Abuse Patient Records regulations: The Federal rules restrict any use of the information to criminally investigate or prosecute any alcohol or drug abuse patient.[facility] HospitalIn the event this information is protected by the Federal Confidentiality of Alcohol and Drug Abuse Patient Records regulations: The Federal rules restrict any use of the information to criminally investigate or prosecute any alcohol or drug abuse patient.[facility] HospitalIn the event this information is protected by the Federal Confidentiality of Alcohol and Drug Abuse Patient Records regulations: The Federal rules restrict any use of the information to criminally investigate or prosecute any alcohol or drug abuse patient.[facility] HospitalIn the event this information is protected by the Federal Confidentiality of Alcohol and Drug Abuse Patient Records regulations: The Federal rules restrict any use of the information to criminally investigate or prosecute any alcohol or drug abuse patient.[facility] HospitalIn the event this information is protected by the Federal Confidentiality of Alcohol and Drug Abuse Patient Records regulations: The Federal rules restrict any use of the information to criminally investigate or prosecute any alcohol or drug abuse patient.[facility] HospitalIn the event this information is protected by the Federal Confidentiality of Alcohol and Drug Abuse Patient Records regulations: The Federal rules restrict any use of the information to criminally investigate or prosecute any alcohol or drug abuse patient.[facility] HospitalIn the event this information is protected by the Federal Confidentiality of Alcohol and Drug Abuse Patient Records regulations: The Federal rules restrict any use of the information to criminally investigate or prosecute any alcohol or drug abuse patient.[facility] HospitalIn the event this information is protected by the Federal Confidentiality of Alcohol and Drug Abuse Patient Records regulations: The Federal rules restrict any use of the information to criminally investigate or prosecute any alcohol or drug abuse patient.[facility] HospitalIn the event this information is protected by the Federal Confidentiality of Alcohol and Drug Abuse Patient Records regulations: The Federal rules restrict any use of the information to criminally investigate or prosecute any alcohol or drug abuse patient.[facility] HospitalIn the event this information is protected by the Federal Confidentiality of Alcohol and Drug Abuse Patient Records regulations: The Federal rules restrict any use of the information to criminally investigate or prosecute any alcohol or drug abuse patient.[facility] HospitalIn the event this information is protected by the Federal Confidentiality of Alcohol and Drug Abuse Patient Records regulations: The Federal rules restrict any use of the information to criminally investigate or prosecute any alcohol or drug abuse patient.[facility] HospitalIn the event this information is protected by the Federal Confidentiality of Alcohol and Drug Abuse Patient Records regulations: The Federal rules restrict any use of the information to criminally investigate or prosecute any alcohol or drug abuse patient.[facility] HospitalIn the event this information is protected by the Federal Confidentiality of Alcohol and Drug Abuse Patient Records regulations: The Federal rules restrict any use of the information to criminally investigate or prosecute any alcohol or drug abuse patient.[facility] HospitalIn the event this information is protected by the Federal Confidentiality of Alcohol and Drug Abuse Patient Records regulations: The Federal rules restrict any use of the information to criminally investigate or prosecute any alcohol or drug abuse patient.[facility] HospitalIn the event this information is protected by the Federal Confidentiality of Alcohol and Drug Abuse Patient Records regulations: The Federal rules restrict any use of the information to criminally investigate or prosecute any alcohol or drug abuse patient.[facility] HospitalIn the event this information is protected by the Federal Confidentiality of Alcohol and Drug Abuse Patient Records regulations: The Federal rules restrict any use of the information to criminally investigate or prosecute any alcohol or drug abuse patient.[facility] HospitalIn the event this information is protected by the Federal Confidentiality of Alcohol and Drug Abuse Patient Records regulations: The Federal rules restrict any use of the information to criminally investigate or prosecute any alcohol or drug abuse patient.[facility] HospitalIn the event this information is protected by the Federal Confidentiality of Alcohol and Drug Abuse Patient Records regulations: The Federal rules restrict any use of the information to criminally investigate or prosecute any alcohol or drug abuse patient.[facility] HospitalIn the event this information is protected by the Federal Confidentiality of Alcohol and Drug Abuse Patient Records regulations: The Federal rules restrict any use of the information to criminally investigate or prosecute any alcohol or drug abuse patient.[facility] HospitalIn the event this information is protected by the Federal Confidentiality of Alcohol and Drug Abuse Patient Records regulations: The Federal rules restrict any use of the information to criminally investigate or prosecute any alcohol or drug abuse patient.[facility] HospitalIn the event this information is protected by the Federal Confidentiality of Alcohol and Drug Abuse Patient Records regulations: The Federal rules restrict any use of the information to criminally investigate or prosecute any alcohol or drug abuse patient.[facility] HospitalIn the event this information is protected by the Federal Confidentiality of Alcohol and Drug Abuse Patient Records regulations: The Federal rules restrict any use of the information to criminally investigate or prosecute any alcohol or drug abuse patient.[facility] HospitalIn the event this information is protected by the Federal Confidentiality of Alcohol and Drug Abuse Patient Records regulations: The Federal rules restrict any use of the information to criminally investigate or prosecute any alcohol or drug abuse patient.[facility] HospitalIn the event this information is protected by the Federal Confidentiality of Alcohol and Drug Abuse Patient Records regulations: The Federal rules restrict any use of the information to criminally investigate or prosecute any alcohol or drug abuse patient.[facility] HospitalIn the event this information is protected by the Federal Confidentiality of Alcohol and Drug Abuse Patient Records regulations: The Federal rules restrict any use of the information to criminally investigate or prosecute any alcohol or drug abuse patient.[facility] HospitalIn the event this information is protected by the Federal Confidentiality of Alcohol and Drug Abuse Patient Records regulations: The Federal rules restrict any use of the information to criminally investigate or prosecute any alcohol or drug abuse patient.[facility] HospitalIn the event this information is protected by the Federal Confidentiality of Alcohol and Drug Abuse Patient Records regulations: The Federal rules restrict any use of the information to criminally investigate or prosecute any alcohol or drug abuse patient.[facility] HospitalIn the event this information is protected by the Federal Confidentiality of Alcohol and Drug Abuse Patient Records regulations: The Federal rules restrict any use of the information to criminally investigate or prosecute any alcohol or drug abuse patient.[facility] HospitalIn the event this information is protected by the Federal Confidentiality of Alcohol and Drug Abuse Patient Records regulations: The Federal rules restrict any use of the information to criminally investigate or prosecute any alcohol or drug abuse patient.[facility] HospitalIn the event this information is protected by the Federal Confidentiality of Alcohol and Drug Abuse Patient Records regulations: The Federal rules restrict any use of the information to criminally investigate or prosecute any alcohol or drug abuse patient.[facility] HospitalIn the event this information is protected by the Federal Confidentiality of Alcohol and Drug Abuse Patient Records regulations: The Federal rules restrict any use of the information to criminally investigate or prosecute any alcohol or drug abuse patient.[facility] HospitalIn the event this information is protected by the Federal Confidentiality of Alcohol and Drug Abuse Patient Records regulations: The Federal rules restrict any use of the information to criminally investigate or prosecute any alcohol or drug abuse patient.[facility] HospitalIn the event this information is protected by the Federal Confidentiality of Alcohol and Drug Abuse Patient Records regulations: The Federal rules restrict any use of the information to criminally investigate or prosecute any alcohol or drug abuse patient.[facility] HospitalIn the event this information is protected by the Federal Confidentiality of Alcohol and Drug Abuse Patient Records regulations: The Federal rules restrict any use of the information to criminally investigate or prosecute any alcohol or drug abuse patient.[facility] HospitalIn the event this information is protected by the Federal Confidentiality of Alcohol and Drug Abuse Patient Records regulations: The Federal rules restrict any use of the information to criminally investigate or prosecute any alcohol or drug abuse patient.[facility] HospitalIn the event this information is protected by the Federal Confidentiality of Alcohol and Drug Abuse Patient Records regulations: The Federal rules restrict any use of the information to criminally investigate or prosecute any alcohol or drug abuse patient.[facility] HospitalIn the event this information is protected by the Federal Confidentiality of Alcohol and Drug Abuse Patient Records regulations: The Federal rules restrict any use of the information to criminally investigate or prosecute any alcohol or drug abuse patient.[facility] HospitalIn the event this information is protected by the Federal Confidentiality of Alcohol and Drug Abuse Patient Records regulations: The Federal rules restrict any use of the information to criminally investigate or prosecute any alcohol or drug abuse patient.[facility] HospitalIn the event this information is protected by the Federal Confidentiality of Alcohol and Drug Abuse Patient Records regulations: The Federal rules restrict any use of the information to criminally investigate or prosecute any alcohol or drug abuse patient.[facility] Reason for Visit (unrecogniz ed section and content) Reason Comments Follow Up Specialty Diagnoses / Procedures Referred By Contac t Referred To Contact Psychiatry / ADULT PSYCHIATRY Diagnoses Provider Ordered Follow Up Procedures EST PSYC ADULT Zina Wise APRN.NEON INSTALLER [address] [place] [address] Phone: tel: fax: Zina Wise APRN.NEON INSTALLER [address] [place] [address] Phone: tel: fax: Referral ID Status Reason Start Date Expiration Date V isits Requested Visits Authorized [id number] New Request 02/13/2025 05/14/2025 1 1 Reason Comments Procedure Mbb #2 Back Pain Lower - bilateral - right is worse Specialty Diagnoses / Procedures Referred By Contac t Referred To Contact Pain Management / PAIN MANAGEMENT Diagnoses Spondylosis without myelopathy or radiculopathy, 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) Procedures NJX DX/THER AGT PVRT FACET JT LMBR/SAC 1 LEVEL NJX DX/THER AGT PVRT FACET JT LMBR/SAC 2ND LEVEL PROCEDURE 20 Linnea Brumfield APRN.NEON INSTALLER [address] [place] [address] Tu Jerry MD [address] [facility] [address] [place] [address] Referral ID Status Reason Start Date Expiration Date Visits Re quested Visits Authorized [id number] Closed 06/13/2024 08/12/2024 2 2 Reason Comments Follow Up Specialty Diagnoses / Procedures Referred By Contac t Referred To Contact [facility] Diagnoses psychiatry follow up Procedures psychiatry follow up Zina Wise APRN.NEON INSTALLER [address] [place] [address] Neurological New Site [address] [place] [address] Referral ID Status Reason Start Date Expiration Date Visits Requested Visits Authorized [id number] Pending Review OON/Self Pay Override 06/16/2023 10/14/2023 99 99 Specialty Diagnoses / Procedures Referred By Contac t Referred To Contact ADULT PSYCHIATRY Diagnoses NEW DBT IOP Procedures VIDEO PSYC/PSYL GRP (ZOOM) Tristian Talbot, LOG INSPECTOR.NEON INSTALLER [address] [facility] [place] [address] Psyc Adult [facility] [address] [place] [address] Referral ID Status Reason Start Date Expiration Date V isits Requested Visits Authorized [id number] Authorized 12/01/2022 08/15/2023 99 99 Reason Comments PT Progress Note Specialty Diagnoses / Procedures Referred By Contac t Referred To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 01/11/2025 Specialty Diagnoses / Procedures Referred By Contac t Referred To Contact Diagnoses Intractable 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 Procedures INJECTION, EPTINEZUMAB-JJMR, 1 MG Gina Tomas PA-C [address] [place] [address] Phone: tel: fax: Gina Tomas PA-C [address] [place] [address] Phone: tel: fax: Referral ID Status Reason Start Date Expiration Date V isits Requested Visits Authorized [id number] Authorized 12/18/2024 03/18/2025 99 99 Reason Comments Established Patient Post Op Reason Onset Date Comments Refill Request 02/13/2025 Reason Comments Infusion Vyepti Reason Comments Follow Up 3 month Back Pain Hip Pain Right Knee Pain Right Rx Refills Cyclobenzaprine Reason Comments Medication Authorization Cyclobenzaprine HCl 10MG tablets - approved - 08/15/2099 Care Teams (unrecognized sec tion and content) Third Loader Relationship Specialty Start Date End Date Eugene Sanchez MD [address] [place] [address] PCP - General Family Practice 03/29/18 Eugene Sanchez MD [address] [place] [address] NI Referring Team Family Practice 10/08/21 Third Loader Relationship Specialty Start Date End Date Eugene Sanchez MD [address] [place] [address] PCP - General Family Practice 03/29/18 Eugene Sanchez MD [address] [place] [address] NI Referring Team Family Practice 10/08/21 Third Loader Relationship Specialty Start Date End Date Eugene Sanchez MD [address] [place] [address] PCP - General Family Practice 03/29/18 Eugene Sanchez MD [address] [facility] [place] [address] NI Referring Team Family Practice 10/08/21 Third Loader Relationship Specialty Start Date End Date Eugene Sanchez MD [address] [facility] [place] [address] PCP - General Family Practice 03/29/18 Eugene Sanchez MD [address] [facility] [place] [address] NI Referring Team Family Practice 10/08/21 Third Loader Relationship Specialty Start Date End Date Eugene Sanchez MD [address] [facility] [place] [address] PCP - General Family Practice 03/29/18 Eugene Sanchez MD [address] [facility] [place] [address] NI Referring Team Family Practice 10/08/21 Third Loader Relationship Specialty Start Date End Date Eugene Sanchez MD [address] [facility] [place] [address] PCP - General Family Practice 03/29/18 Eugene Sanchez MD [address] [facility] [place] [address] NI Referring Team Family Practice 10/08/21 Third Loader Relationship Specialty Start Date End Date Eugene Sanchez MD [address] [facility] [place] [address] PCP - General Family Practice 03/29/18 Eugene Sanchez MD [address] [facility] [place] [address] NI Referring Team Family Practice 10/08/21 Third Loader Relationship Specialty Start Date End Date Eugene Sanchez MD [address] [facility] [place] [address] PCP - General Family Practice 03/29/18 Eugene Sanchez MD [address] [facility] [place] [address] NI Referring Team Family Practice 10/08/21 Third Loader Relationship Specialty Start Date End Date Eugene Sanchez MD [address] [facility] [place] [address] PCP - General Family Practice 03/29/18 Eugene Sanchez MD [address] [facility] [place] [address] NI Referring Team Family Practice 10/08/21 Third Loader Relationship Specialty Start Date End Date Eugene Sanchez MD [address] [facility] [place] [address] PCP - General Family Practice 03/29/18 Eugene Sanchez MD [address] [facility] [place] [address] NI Referring Team Family Practice 10/08/21 Third Loader Relationship Specialty Start Date End Date Eugene Sanchez MD [address] [facility] [place] [address] PCP - General Family Practice 03/29/18 Eugene Sanchez MD [address] [facility] [place] [address] NI Referring Team Family Practice 10/08/21 Third Loader Relationship Specialty Start Date End Date Eugene Sanchez MD [address] [facility] [place] [address] PCP - General Family Practice 03/29/18 Eugene Sanchez MD [address] [facility] [place] [address] NI Referring Team Family Practice 10/08/21 Third Loader Relationship Specialty Start Date End Date Eugene Sanchez MD [address] [facility] [place] [address] PCP - General Family Practice 03/29/18 Eugene Sanchez MD [address] [facility] [place] [address] NI Referring Team Family Practice 10/08/21 Third Loader Relationship Specialty Start Date End Date Eugene Sanchez MD [address] [facility] [place] [address] PCP - General Family Practice 03/29/18 Eugene Sanchez MD [address] [facility] [place] [address] NI Referring Team Family Practice 10/08/21 Third Loader Relationship Specialty Start Date End Date Eugene Sanchez MD [address] [facility] [place] [address] PCP - General Family Practice 03/29/18 Eugene Sanchez MD [address] [facility] [place] [address] NI Referring Team Family Practice 10/08/21 Third Loader Relationship Specialty Start Date End Date Eugene Sanchez MD [address] [facility] [place] [address] PCP - General Family Practice 03/29/18 Eugene Sanchez MD [address] [facility] [place] [address] NI Referring Team Family Practice 10/08/21 Third Loader Relationship Specialty Start Date End Date Eugene Sanchez MD [address] [facility] [place] [address] PCP - General Family Practice 03/29/18 Eugene Sanchez MD [address] [facility] [place] [address] NI Referring Team Family Practice 10/08/21 Third Loader Relationship Specialty Start Date End Date Eugene Sanchez MD [address] [facility] [place] [address] PCP - General Family Practice 03/29/18 Eugene Sanchez MD [address] [facility] [place] [address] NI Referring Team Family Practice 10/08/21 Third Loader Relationship Specialty Start Date End Date Eugene Sanchez MD [address] [facility] [place] [address] PCP - General Family Practice 03/29/18 Eugene Sanchez MD [address] [facility] [place] [address] NI Referring Team Family Practice 10/08/21 Third Loader Relationship Specialty Start Date End Date Eugene Sanchez MD [address] [facility] [place] [address] PCP - General Family Practice 03/29/18 Eugene Sanchez MD [address] [facility] [place] [address] NI Referring Team Family Practice 10/08/21 Third Loader Relationship Specialty Start Date End Date Eugene Sanchez MD [address] [facility] [place] [address] PCP - General Family Practice 03/29/18 Eugene Sanchez MD [address] [facility] [place] [address] NI Referring Team Family Practice 10/08/21 Third Loader Relationship Specialty Start Date End Date Eugene Sanchez MD [address] [facility] [place] [address] PCP - General Family Practice 03/29/18 Eugene Sanchez MD [address] [facility] [place] [address] NI Referring Team Family Practice 10/08/21 Third Loader Relationship Specialty Start Date End Date Eugene Sanchez MD [address] [facility] [place] [address] PCP - General Family Practice 03/29/18 Eugene Sanchez MD [address] [facility] [place] [address] NI Referring Team Family Practice 10/08/21 Third Loader Relationship Specialty Start Date End Date Eugene Sanchez MD [address] [facility] [place] [address] PCP - General Family Practice 03/29/18 Eugene Sanchez MD [address] [facility] [place] [address] NI Referring Team Family Practice 10/08/21 Third Loader Relationship Specialty Start Date End Date Eugene Sanchez MD [address] [facility] [place] [address] PCP - General Family Practice 03/29/18 Eugene Sanchez MD [address] [facility] [place] [address] NI Referring Team Family Practice 10/08/21 Third Loader Relationship Specialty Start Date End Date Eugene Sanchez MD [address] [facility] [place] [address] PCP - General Family Practice 03/29/18 Eugene Sanchez MD [address] [facility] [place] [address] NI Referring Team Family Practice 10/08/21 Third Loader Relationship Specialty Start Date End Date Eugene Sanchez MD [address] [facility] [place] [address] PCP - General Family Practice 03/29/18 Eugene Sanchez MD [address] [facility] [place] [address] NI Referring Team Family Practice 10/08/21 Third Loader Relationship Specialty Start Date End Date Eugene Sanchez MD [address] [facility] [place] [address] PCP - General Family Practice 03/29/18 Eugene Sanchez MD [address] [facility] [place] [address] NI Referring Team Family Practice 10/08/21 Third Loader Relationship Specialty Start Date End Date Eugene Sanchez MD [address] [facility] [place] [address] PCP - General Family Practice 03/29/18 Eugene Sanchez MD [address] [facility] [place] [address] NI Referring Team Family Practice 10/08/21 Third Loader Relationship Specialty Start Date End Date Eugene Sanchez MD [address] [facility] [place] [address] PCP - General Family Medicine 03/29/18 Eugene Sanchez MD [address] [facility] [place] [address] NI Referring Team Family Medicine 10/08/21 Third Loader Relationship Specialty Start Date End Date Eugene Sanchez MD [address] [facility] [place] [address] PCP - General Family Medicine 03/29/18 Eugene Sanchez MD [address] [facility] [place] [address] NI Referring Team Family Medicine 10/08/21 Third Loader Relationship Specialty Start Date End Date Eugene Sanchez MD [address] [facility] [place] [address] PCP - General Family Medicine 03/29/18 Eugene Sanchez MD [address] [facility] [place] [address] NI Referring Team Family Medicine 10/08/21 Third Loader Relationship Specialty Start Date End Date Eugene Sanchez MD [address] [facility] [place] [address] PCP - General Family Medicine 03/29/18 Eugene Sanchez MD [address] [facility] [place] [address] NI Referring Team Family Medicine 10/08/21 Third Loader Relationship Specialty Start Date End Date Eugene Sanchez MD [address] [facility] [place] [address] PCP - General Family Medicine 03/29/18 Eugene Sanchez MD [address] [facility] [place] [address] NI Referring Team Family Medicine 10/08/21 Third Loader Relationship Specialty Start Date End Date Eugene Sanchez MD [address] [facility] [place] [address] PCP - General Family Medicine 03/29/18 Eugene Sanchez MD [address] [facility] [place] [address] NI Referring Team Family Medicine 10/08/21 Third Loader Relationship Specialty Start Date End Date Eugene Sanchez MD [address] [facility] [place] [address] PCP - General Family Medicine 03/29/18 Eugene Sanchez MD [address] [facility] [place] [address] NI Referring Team Family Medicine 10/08/21 Third Loader Relationship Specialty Start Date End Date Eugene Sanchez MD [address] [facility] [place] [address] PCP - General Family Medicine 03/29/18 Eugene Sanchez MD [address] [facility] [place] [address] NI Referring Team Family Medicine 10/08/21 Third Loader Relationship Specialty Start Date End Date Eugene Sanchez MD [address] [facility] [place] [address] PCP - General Family Medicine 03/29/18 Eugene Sanchez MD [address] [facility] [place] [address] NI Referring Team Family Medicine 10/08/21 Third Loader Relationship Specialty Start Date End Date Eugene Sanchez MD [address] [facility] [place] [address] PCP - General Family Medicine 03/29/18 Eugene Sanchez MD [address] [facility] [address] NI Referring Team Family Medicine 10/08/21 Third Loader Relationship Specialty Start Date End Date Eugene Sanchez MD [address] [facility] [address] PCP - General Family Medicine 03/29/18 Eugene Sanchez MD [address] [facility] [place] [address] NI Referring Team Family Medicine 10/08/21 Third Loader Relationship Specialty Start Date End Date Eugene Sanchez MD [address] [facility] [place] [address] PCP - General Family Medicine 03/29/18 Eugene Sanchez MD [address] [facility] [place] [address] NI Referring Team Family Medicine 10/08/21 Third Loader Relationship Specialty Start Date End Date Eugene Sanchez MD [address] [facility] [place] [address] PCP - General Family Medicine 03/29/18 Eugene Sanchez MD [address] [facility] [place] [address] NI Referring Team Family Medicine 10/08/21 Third Loader Relationship Specialty Start Date End Date Eugene Sanchez MD [address] [facility] [place] [address] PCP - General Family Medicine 03/29/18 Eugene Sanchez MD [address] [facility] [place] [address] NI Referring Team Family Medicine 10/08/21 Third Loader Relationship Specialty Start Date End Date Eugene Sanchez MD [address] [facility] [place] [address] PCP - General Family Medicine 03/29/18 Eugene Sanchez MD [address] [facility] [place] [address] NI Referring Team Family Medicine 10/08/21 Third Loader Relationship Specialty Start Date End Date Eugene Sanchez MD [address] [facility] [place] [address] PCP - General Family Medicine 03/29/18 Eugene Sanchez MD [address] [facility] [place] [address] NI Referring Team Family Medicine 10/08/21 Third Loader Relationship Specialty Start Date End Date Eugene Sanchez MD [address] [facility] [place] [address] PCP - General Family Medicine 03/29/18 Eugene Sanchez MD [address] [facility] [place] [address] NI Referring Team Family Medicine 10/08/21 Third Loader Relationship Specialty Start Date End Date Eugene Sanchez MD [address] [facility] [place] [address] PCP - General Family Medicine 03/29/18 Eugene Sanchez MD [address] [facility] [place] [address] NI Referring Team Family Medicine 10/08/21 Third Loader Relationship Specialty Start Date End Date Eugene Sanchez MD [address] [facility] [place] [address] PCP - General Family Medicine 03/29/18 Eugene Sanchez MD [address] [facility] [place] [address] NI Referring Team Family Medicine 10/08/21 Third Loader Relationship Specialty Start Date End Date Eugene Sanchez MD [address] [facility] [place] [address] PCP - General Family Medicine 03/29/18 Eugene Sanchez MD [address] [facility] [place] [address] NI Referring Team Family Medicine 10/08/21 Third Loader Relationship Specialty Start Date End Date Eugene Sanchez MD [address] [facility] [place] [address] PCP - General Family Medicine 03/29/18 Eugene Sanchez MD [address] [facility] [place] [address] NI Referring Team Family Medicine 10/08/21 Third Loader Relationship Specialty Start Date End Date Eugene Sanchez MD [address] [facility] [place] [address] PCP - General Family Medicine 03/29/18 Eugene Sanchez MD [address] [facility] [place] [address] NI Referring Team Family Medicine 10/08/21 Third Loader Relationship Specialty Start Date End Date Eugene Sanchez MD [address] [facility] [place] [address] PCP - General Family Medicine 03/29/18 Eugene Sanchez MD [address] [facility] [place] [address] NI Referring Team Family Medicine 10/08/21 Third Loader Relationship Specialty Start Date End Date Eugene Sanchez MD [address] [facility] [place] [address] PCP - General Family Medicine 03/29/18 Eugene Sanchez MD [address] [facility] [place] [address] NI Referring Team Family Medicine 10/08/21 Third Loader Relationship Specialty Start Date End Date Eugene Sanchez MD [address] [facility] [place] [address] PCP - General Family Medicine 03/29/18 Eugene Sanchez MD [address] [facility] [place] [address] NI Referring Team Family Medicine 10/08/21 Third Loader Relationship Specialty Start Date End Date Eugene Sanchez MD [address] [facility] [place] [address] PCP - General Family Medicine 03/29/18 Eugene Sanchez MD [address] [facility] [place] [address] NI Referring Team Family Medicine 10/08/21 Third Loader Relationship Specialty Start Date End Date Eugene Sanchez MD [address] [facility] [place] [address] PCP - General Family Medicine 03/29/18 Eugene Sanchez MD [address] [facility] [place] [address] NI Referring Team Family Medicine 10/08/21 Third Loader Relationship Specialty Start Date End Date Eugene Sanchez MD [address] [facility] [place] [address] PCP - General Family Medicine 03/29/18 Eugene Sanchez MD [address] [facility] [place] [address] NI Referring Team Family Medicine 10/08/21 Third Loader Relationship Specialty Start Date End Date Eugene Sanchez MD [address] [facility] [place] [address] PCP - General Family Medicine 03/29/18 Eugene Sanchez MD [address] [facility] [place] [address] NI Referring Team Family Medicine 10/08/21 Third Loader Relationship Specialty Start Date End Date Eugene Sanchez MD [address] [facility] [place] [address] PCP - General Family Medicine 03/29/18 Eugene Sanchez MD [address] [facility] [place] [address] NI Referring Team Family Medicine 10/08/21 Third Loader Relationship Specialty Start Date End Date Eugene Sanchez MD [address] [facility] [place] [address] PCP - General Family Medicine 03/29/18 Eugene Sanchez MD [address] [facility] [place] [address] NI Referring Team Family Medicine 10/08/21 Third Loader Relationship Specialty Start Date End Date Eugene Sanchez MD [address] [facility] [place] [address] PCP - General Family Medicine 03/29/18 Eugene Sanchez MD [address] [facility] [place] [address] NI Referring Team Family Medicine 10/08/21 Third Loader Relationship Specialty Start Date End Date Eugene Sanchez MD [address] [facility] [place] [address] PCP - General Family Medicine 03/29/18 Eugene Sanchez MD [address] [facility] [place] [address] NI Referring Team Family Medicine 10/08/21 Third Loader Relationship Specialty Start Date End Date Eugene Sanchez MD [address] [facility] [place] [address] PCP - General Family Medicine 03/29/18 Eugene Sanchez MD [address] [facility] [place] [address] NI Referring Team Family Medicine 10/08/21 Third Loader Relationship Specialty Start Date End Date Eugene Sanchez MD [address] [facility] [place] [address] PCP - General Family Medicine 03/29/18 Eugene Sanchez MD [address] [facility] [place] [address] NI Referring Team Family Medicine 10/08/21 Third Loader Relationship Specialty Start Date End Date Eugene Sanchez MD [address] [facility] [place] [address] PCP - General Family Medicine 03/29/18 Eugene Sanchez MD [address] [facility] [place] [address] NI Referring Team Family Medicine 10/08/21 Third Loader Relationship Specialty Start Date End Date Eugene Sanchez MD [address] [facility] [place] [address] PCP - General Family Medicine 03/29/18 Eugene Sanchez MD [address] [facility] [place] [address] NI Referring Team Family Medicine 10/08/21 Third Loader Relationship Specialty Start Date End Date Eugene Sanchez MD [address] [facility] [place] [address] PCP - General Family Medicine 03/29/18 Eugene Sanchez MD [address] [facility] [place] [address] NI Referring Team Family Medicine 10/08/21 Third Loader Relationship Specialty Start Date End Date Eugene Sanchez MD [address] [facility] [place] [address] PCP - General Family Medicine 03/29/18 Eugene Sanchez MD [address] [facility] [place] [address] NI Referring Team Family Medicine 10/08/21 Third Loader Relationship Specialty Start Date End Date Eugene Sanchez MD [address] [facility] [place] [address] PCP - General Family Medicine 03/29/18 Eugene Sanchez MD [address] [facility] [place] [address] NI Referring Team Family Medicine 10/08/21 Third Loader Relationship Specialty Start Date End Date Eugene Sanchez MD [address] [facility] [place] [address] PCP - General Family Medicine 03/29/18 Eugene Sanchez MD [address] [facility] [place] [address] NI Referring Team Family Medicine 10/08/21 Third Loader Relationship Specialty Start Date End Date Eugene Sanchez MD [address] [facility] [place] [address] PCP - General Family Medicine 03/29/18 Eugene Sanchez MD [address] [facility] [place] [address] NI Referring Team Family Medicine 10/08/21 Third Loader Relationship Specialty Start Date End Date Eugene Sanchez MD [address] [facility] [place] [address] PCP - General Family Medicine 03/29/18 Eugene Sanchez MD [address] [facility] [place], [place] [address] [phone] Referring Team Family Medicine 10/08/21 Third Loader Relationship Specialty Start Date End Date Eugene Sanchez MD [address] [facility] [place] [address] PCP - General Family Medicine 03/29/18 Eugene Sanchez MD [address] [facility] [place] [address] NI Referring Team Family Medicine 10/08/21 Third Loader Relationship Specialty Start Date End Date Eugene Sanchez MD [address] [facility] [place] [address] PCP - General Family Medicine 03/29/18 Eugene Sanchez MD [address] [facility] [place] [address] NI Referring Team Family Medicine 10/08/21 Third Loader Relationship Specialty Start Date End Date Eugene Sanchez MD [address] [facility] [place] [address] PCP - General Family Medicine 03/29/18 Eugene Sanchez MD [address] [facility] [place] [address] NI Referring Team Family Medicine 10/08/21 Third Loader Relationship Specialty Start Date End Date Eugene Sanchez MD [address] [facility] [place] [address] PCP - General Family Medicine 03/29/18 Eugene Sanchez MD [address] [facility] [place], [place] [address] NI Referring Team Family Medicine 10/08/21 Third Loader Relationship Specialty Start Date End Date Eugene Sanchez MD [address] [facility] [place] [address] PCP - General Family Medicine 03/29/18 Eugene Sanchez MD [address] [facility] [place] [address] NI Referring Team Family Medicine 10/08/21 Third Loader Relationship Specialty Start Date End Date Eugene Sanchez MD [address] [facility] [place], [place] [address] 147- PCP - General Family Medicine 03/29/18 Eugene Sanchez MD [address] [facility] [place], [place] [address]- NI Referring Team Family Medicine 10/08/21 Third Loader Relationship Specialty Start Date End Date Eugene Sanchez MD [address] [facility] [place], [place] [address] [phone] PCP - General Family Medicine 03/29/18 Eugene Sanchez MD [address] [facility] [place] [address] NI Referring Team Family Medicine 10/08/21 Third Loader Relationship Specialty Start Date End Date Eugene Sanchez MD [address] [facility] [place] [address] PCP - General Family Medicine 03/29/18 Eugene Sanchez MD [address] [facility] [place] [address] NI Referring Team Family Medicine 10/08/21 Third Loader Relationship Specialty Start Date End Date Eugene Sanchez MD [address] [facility] [place] [address] PCP - General Family Medicine 03/29/18 Eugene Sanchez MD [address] [facility] [place] [address] NI Referring Team Family Medicine 10/08/21 Third Loader Relationship Specialty Start Date End Date Eugene Sanchez MD [address] [facility] [place] [address] PCP - General Family Medicine 03/29/18 Eugene Sanchez MD [address] [facility] [place] [address] NI Referring Team Family Medicine 10/08/21 Third Loader Relationship Specialty Start Date End Date Eugene Sanchez MD [address] [facility] [place] [address] PCP - General Family Medicine 03/29/18 Eugene Sanchez MD [address] [facility] [place] [address] NI Referring Team Family Medicine 10/08/21 Third Loader Relationship Specialty Start Date End Date Eugene Sanchez MD [address] [facility] [place] [address] PCP - General Family Medicine 03/29/18 Eugene Sanchez MD [address] [facility] [place] [address] NI Referring Team Family Medicine 10/08/21 Third Loader Relationship Specialty Start Date End Date Eugene Sanchez MD [address] [facility] [place] [address] PCP - General Family Medicine 03/29/18 Eugene Sanchez MD [address] [facility] [place] [address] NI Referring Team Family Medicine 10/08/21 Third Loader Relationship Specialty Start Date End Date Eugene Sanchez MD [address] [facility] [place] [address] PCP - General Family Medicine 03/29/18 Eugene Sanchez MD [address] [facility] [place] [address] NI Referring Team Family Medicine 10/08/21 Team Status: Active Member Role Status Dates Dr. Angelo Sanchez MD Family Provider Active Dr. Angelo Sanchez MD Primary Care Provider Acti ve Team Status: Inactive Member Role Status Dates Dr. Angelo Sanchez MD Primary Care Provider Acti ve Ramon Alvarado MD Emergency Provider Active Third Loader Relationship Specialty Start Date End Date Eugene Sanchez MD [address] [facility] [place] [address] PCP - General Family Medicine 03/29/18 Eugene Sanchez MD [address] [facility] [place] [address] NI Referring Team Family Medicine 10/08/21 Third Loader Relationship Specialty Start Date End Date Eugene Sanchez MD [address] [facility] [place] [address] PCP - General Family Medicine 03/29/18 Eugene Sanchez MD [address] [facility] [place] [address] NI Referring Team Family Medicine 10/08/21 Third Loader Relationship Specialty Start Date End Date Eugene Sanchez MD [address] [facility] [place] [address] PCP - General Family Medicine 03/29/18 Eugene Sanchez MD [address] [facility] [address] NI Referring Team Family Medicine 10/08/21 Third Loader Relationship Specialty Start Date End Date Eugene Sanchez MD [address] [facility] [place] [address] PCP - General Family Medicine 03/29/18 Eugene Sanchez MD [address] [facility] [place] [address] NI Referring Team Family Medicine 10/08/21 Third Loader Relationship Specialty Start Date End Date Eugene Sanchez MD [address] [facility] [place] [address] PCP - General Family Medicine 03/29/18 Eugene Sanchez MD [address] [facility] [address] NI Referring Team Family Medicine 10/08/21 Third Loader Relationship Specialty Start Date End Date Eugene Sanchez MD [address] [facility] [place] [address] PCP - General Family Medicine 03/29/18 Eugene Sanchez MD [address] [facility] [place] [address] NI Referring Team Family Medicine 10/08/21 Third Loader Relationship Specialty Start Date End Date Eugene Sanchez MD [address] [facility] [address] PCP - General Family Medicine 03/29/18 Eugene Sanchez MD [address] [facility] [address] NI Referring Team Family Medicine 10/08/21 Third Loader Relationship Specialty Start Date End Date Eugene Sanchez MD [address] [facility] [place] [address] PCP - General Family Medicine 03/29/18 Eugene Sanchez MD [address] [place] [address] NI Referring Team Family Medicine 10/08/21 Third Loader Relationship Specialty Start Date End Date Eugene Sanchez MD [address] [facility] [place] [address] PCP - General Family Medicine 03/29/18 Eugene Sanchez MD [address] [facility] [place] [address] NI Referring Team Family Medicine 10/08/21 Third Loader Relationship Specialty Start Date End Date Eugene Sanchez MD [address] [facility] [place] [address] PCP - General Family Medicine 03/29/18 Eugene Sanchez MD [address] [facility] [place] [address] NI Referring Team Family Medicine 10/08/21 Third Loader Relationship Specialty Start Date End Date Eugene Sanchez MD [address] [facility] [place] [address] PCP - General Family Medicine 03/29/18 Eugene Sanchez MD [address] [facility] [place] [address] NI Referring Team Family Medicine 10/08/21 Third Loader Relationship Specialty Start Date End Date Eugene Sanchez MD [address] [facility] [place] [address] PCP - General Family Medicine 03/29/18 Eugene Sanchez MD [address] [facility] [place] [address] NI Referring Team Family Medicine 10/08/21 Third Loader Relationship Specialty Start Date End Date Eugene Sanchez MD [address] [facility] [place] [address] PCP - General Family Medicine 03/29/18 Eugene Sanchez MD [address] [facility] [place] [address] NI Referring Team Family Medicine 10/08/21 Third Loader Relationship Specialty Start Date End Date Eugene Sanchez MD [address] [facility] [place] [address] PCP - General Family Medicine 03/29/18 Eugene Sanchez MD [address] [facility] [place] [address] NI Referring Team Family Medicine 10/08/21 Third Loader Relationship Specialty Start Date End Date Eugene Sanchez MD [address] [place] [address] PCP - General Family Medicine 03/29/18 Eugene Sanchez MD [address] [place] [address] NI Referring Team Family Medicine 10/08/21 Third Loader Relationship Specialty Start Date End Date Eugene Sanchez MD [address] [place] [address] PCP - General Family Medicine 03/29/18 Eugene Sanchez MD [address] [place] [address] NI Referring Team Family Medicine 10/08/21 Third Loader Relationship Specialty Start Date End Date Eugene Sanchez MD [address] [place] [address] PCP - General Family Medicine 03/29/18 Eugene Sanchez MD [address] [place] [address] NI Referring Team Family Medicine 10/08/21 Third Loader Relationship Specialty Start Date End Date Eugene Sanchez MD [address] [place] [address] PCP - General Family Medicine 03/29/18 Eugene Sanchez MD [address] [place] [address] NI Referring Team Family Medicine 10/08/21 Third Loader Relationship Specialty Start Date End Date Eugene Sanchez MD [address] [place] [address] PCP - General Family Medicine 03/29/18 Eugene Sanchez MD [address] [place] [address] NI Referring Team Family Medicine 10/08/21 Third Loader Relationship Specialty Start Date End Date Eugene Sanchez MD [address] [place] [address] PCP - General Family Medicine 03/29/18 Eugene Sanchez MD [address] [place] [address] NI Referring Team Family Medicine 10/08/21 Third Loader Relationship Specialty Start Date End Date Eugene Sanchez MD [address] [place] [address] PCP - General Family Medicine 03/29/18 Eugene Sanchez MD [address] [place] [address] NI Referring Team Family Medicine 10/08/21 Third Loader Relationship Specialty Start Date End Date Eugene Sanchez MD [address] [place] [address] PCP - General Family Medicine 03/29/18 uEgene Sanchez MD [address] [facility] [place] [address] NI Referring Team Family Medicine 10/08/21 Third Loader Relationship Specialty Start Date End Date Eugene Sanchez MD [address] [facility] [place] [address] PCP - General Family Medicine 03/29/18 Eugene Sanchez MD [address] [place] [address] NI Referring Team Family Medicine 10/08/21 Third Loader Relationship Specialty Start Date End Date Eugene Sanchez MD [address] [facility] [place] [address] PCP - General Family Medicine 03/29/18 Eugene Sanchez MD [address] [facility] [address] NI Referring Team Family Medicine 10/08/21 Third Loader Relationship Specialty Start Date End Date Eugene Sanchez MD [address] [facility] [place] [address] PCP - General Family Medicine 03/29/18 Eugene Sanchez MD [address] [place] [address] NI Referring Team Family Medicine 10/08/21 Third Loader Relationship Specialty Start Date End Date Eugene Sanchez MD [address] [facility] [address] PCP - General Family Medicine 03/29/18 Eugene Sanchez MD [address] [place] [address] NI Referring Team Family Medicine 10/08/21 Third Loader Relationship Specialty Start Date End Date Eugene Sanchez MD [address] [place] [address] PCP - General Family Medicine 03/29/18 Eugene Sanchez MD [address] [place] [address] NI Referring Team Family Medicine 10/08/21 Third Loader Relationship Specialty Start Date End Date Eugene Sanchez MD [address] [place] [address] PCP - General Family Medicine 03/29/18 Eugene Sanchez MD [address] [place] [address] NI Referring Team Family Medicine 10/08/21 Third Loader Relationship Specialty Start Date End Date Eugene Sanchez MD [address] [place] [address] PCP - General Family Medicine 03/29/18 Eugene Sanchez MD [address] [place] [address] NI Referring Team Family Medicine 10/08/21 Third Loader Relationship Specialty Start Date End Date Eugene Sanchez MD [address] [place] [address] PCP - General Family Medicine 03/29/18 Eugene Sanchez MD [address] [facility] [place] [address] NI Referring Team Family Medicine 10/08/21 Third Loader Relationship Specialty Start Date End Date Eugene Sanchez MD [address] [place] [address] PCP - General Family Medicine 03/29/18 Eugene Sanchez MD [address] [place] [address] NI Referring Team Family Medicine 10/08/21 Third Loader Relationship Specialty Start Date End Date Eugene Sanchez MD [address] [place] [address] PCP - General Family Medicine 03/29/18 Eugene Sanchez MD [address] [place] [address] NI Referring Team Family Medicine 10/08/21 Third Loader Relationship Specialty Start Date End Date Eugene Sanchez MD [address] [place] [address] PCP - General Family Medicine 03/29/18 Eugene Sanchez MD [address] [place] [address] NI Referring Team Family Medicine 10/08/21 Third Loader Relationship Specialty Start Date End Date Eugene Sanchez MD [address] [place] [address] PCP - General Family Medicine 03/29/18 Eugene Sanchez MD [address] [place] [address] NI Referring Team Family Medicine 10/08/21 Third Loader Relationship Specialty Start Date End Date Eugene Sanchez MD [address] [place] [address] PCP - General Family Medicine 03/29/18 Eugene Sanchez MD [address] [place] [address] NI Referring Team Family Medicine 10/08/21 Third Loader Relationship Specialty Start Date End Date Eugene Sanchez MD [address] [place] [address] PCP - General Family Medicine 03/29/18 Eugene Sanchez MD [address] [place] [address] NI Referring Team Family Medicine 10/08/21 NishalogSybil baker APRN.CNP [address] [place] [address] Garment Finisher Family Medicine 07/22/24 Third Loader Relationship Specialty Start Date End Date Eugene Sanchez MD [address] [place] [address] PCP - General Family Medicine 03/29/18 Eugene Sanchez MD [address] [place] [address] NI Referring Team Family Medicine 10/08/21 Podlogar, Sybil, LOG INSPECTOR.NEON INSTALLER [address] [place] [address] Garment Finisher Family Medicine 07/22/24 Third Loader Relationship Specialty Start Date End Date Eugene Sanchez MD [address] [place] [address] PCP - General Family Medicine 03/29/18 Eugene Sanchez MD [address] [facility] [place] [address] NI Referring Team Family Medicine 10/08/21 Podlogar, Sybil, LOG INSPECTOR.NEON INSTALLER [address] [facility] [place] [address] Garment Finisher Family Medicine 07/22/24 Third Loader Relationship Specialty Start Date End Date Eugene Sanchez MD [address] [facility] [place] [address] PCP - General Family Medicine 03/29/18 Eugene Sanchez MD [address] [place] [address] NI Referring Team Family Medicine 10/08/21 Podlogar, Sybil, LOG INSPECTOR.NEON INSTALLER [address] [facility] [place] [address] Garment Finisher Family Medicine 07/22/24 Third Loader Relationship Specialty Start Date End Date Eugene Sanchez MD [address] [facility] [place] [address] PCP - General Family Medicine 03/29/18 Eugene Sanchez MD [address] [facility] [address] NI Referring Team Family Medicine 10/08/21 PodlogarSybil APRN.NEON INSTALLER [address] [facility] [address] Garment Finisher Family Medicine 07/22/24 Third Loader Relationship Specialty Start Date End Date Eugene Sanchez MD [address] [facility] [address] PCP - General Family Medicine 03/29/18 Eugene Sanchez MD [address] [facility] [address] NI Referring Team Family Medicine 10/08/21 Podlogar, GITA Devine.NEON INSTALLER [address] [facility] [address] Garment Finisher Family Medicine 07/22/24 Third Loader Relationship Specialty Start Date End Date Eugene Sanchez MD [address] [facility] [place] [address] PCP - General Family Medicine 03/29/18 Eugene Sanchez MD [address] [facility] [place] [address] NI Referring Team Family Medicine 10/08/21 PodlogarSybil APRN.NEON INSTALLER [address] [facility] [place] [address] Garment Finisher Family Medicine 07/22/24 Third Loader Relationship Specialty Start Date End Date Eugene Sanchez MD [address] [place] [address] PCP - General Family Medicine 03/29/18 Eugene Sanchez MD [address] [place] [address] NI Referring Team Family Medicine 10/08/21 Podlogar, GITA Devine.NEON INSTALLER [address] [place] [address] Garment Finisher Family Medicine 07/22/24 Third Loader Relationship Specialty Start Date End Date Eugene Sanchez MD [address] [place] [address] PCP - General Family Medicine 03/29/18 Eugene Sanchez MD [address] [place] [address] NI Referring Team Family Medicine 10/08/21 Podlogar, GITA Devine.NEON INSTALLER [address] [place] [address] Garment Finisher Family Medicine 07/22/24 Third Loader Relationship Specialty Start Date End Date Eugene Sanchez MD [address] [place] [address] PCP - General Family Medicine 03/29/18 Eugene Sanchez MD [address] [place] [address] NI Referring Team Family Medicine 10/08/21 PodlogarSybil LOG INSPECTOR.NEON INSTALLER [address] [place] [address] Garment Finisher Family Medicine 07/22/24 Third Loader Relationship Specialty Start Date End Date Eugene Sanchez MD [address] [place] [address] PCP - General Family Medicine 03/29/18 Eugene Sanchez MD [address] [facility] [address] NI Referring Team Family Medicine 10/08/21 PodlogarSybil, LOG INSPECTOR.NEON INSTALLER [address] [facility] [address] Garment Finisher Family Medicine 07/22/24 Third Loader Relationship Specialty Start Date End Date Eugene Sanchez MD [address] [facility] [place] [address] PCP - General Family Medicine 03/29/18 Eugene Sanchez MD [address] [facility] [place] [address] NI Referring Team Family Medicine 10/08/21 PodlogarSybil, LOG INSPECTOR.NEON INSTALLER [address] [facility] [address] Garment Finisher Family Medicine 07/22/24 Third Loader Relationship Specialty Start Date End Date Eugene Sanchez MD [address] [facility] [address] PCP - General Family Medicine 03/29/18 Eugene Sanchez MD [address] [facility] [place] [address] NI Referring Team Family Medicine 10/08/21 Podlogar, Sybil, LOG INSPECTOR.NEON INSTALLER [address] [place] [address] Garment Finisher Family Medicine 07/22/24 Third Loader Relationship Specialty Start Date End Date Eugene Sanchez MD [address] [facility] [address] PCP - General Family Medicine 03/29/18 Eugene Sanchez MD [address] [facility] [address] NI Referring Team Family Medicine 10/08/21 Podlogar, Sybil, LOG INSPECTOR.NEON INSTALLER [address] [facility] [place] [address] Garment Finisher Family Medicine 07/22/24 Third Loader Relationship Specialty Start Date End Date Eugene Sanchez MD [address] [facility] [address] PCP - General Family Medicine 03/29/18 Eugene Sanchez MD [address] [facility] [place] [address] NI Referring Team Family Medicine 10/08/21 Podlogar, Sybil, LOG INSPECTOR.NEON INSTALLER [address] [facility] [address] Garment Finisher Family Medicine 07/22/24 Third Loader Relationship Specialty Start Date End Date Eugene Sanchez MD [address] [facility] [address] PCP - General Family Medicine 03/29/18 Eugene Sanchez MD [address] [facility] [address] NI Referring Team Family Medicine 10/08/21 PodlogarSybil APRN.NEON INSTALLER [address] [facility] [address] Garment Finisher Family Medicine 07/22/24 Third Loader Relationship Specialty Start Date End Date Eugene Sanchez MD [address] [facility] [address] PCP - General Family Medicine 03/29/18 Eugene Sanchez MD [address] [facility] [place] [address] NI Referring Team Family Medicine 10/08/21 PodlogarSybil APRN.NEON INSTALLER [address] [facility] [address] Garment Finisher Family Medicine 07/22/24 Third Loader Relationship Specialty Start Date End Date Eugene Sanchez MD [address] [facility] [address] PCP - General Family Medicine 03/29/18 Eugene Sanchez MD [address] [facility] [place] [address] NI Referring Team Family Medicine 10/08/21 PodlogarSybil APRN.NEON INSTALLER [address] [facility] [address] Garment Finisher Family Medicine 07/22/24 Third Loader Relationship Specialty Start Date End Date Eugene Sanchez MD [address] [place] [address] PCP - General Family Medicine 03/29/18 Eugene Sanchez MD [address] [place] [address] NI Referring Team Family Medicine 10/08/21 Podlogar, GITA Devine.NEON INSTALLER [address] [place] [address] Garment Finisher Family Medicine 07/22/24 Third Loader Relationship Specialty Start Date End Date Eugene Sanchez MD [address] [place] [address] PCP - General Family Medicine 03/29/18 Eugene Sanchez MD [address] [place] [address] NI Referring Team Family Medicine 10/08/21 Podlogar, GITA Devine.NEON INSTALLER [address] [place] [address] Garment Finisher Family Medicine 07/22/24 Third Loader Relationship Specialty Start Date End Date Eugene Sanchez MD [address] [place] [address] PCP - General Family Medicine 03/29/18 Eugene Sanchez MD [address] [place] [address] NI Referring Team Family Medicine 10/08/21 PodlogarSybil APRN.NEON INSTALLER [address] [facility] [address] Garment Finisher Family Medicine 07/22/24 Solitario Hood, P[facility] [address] [place] [address] Specialty Artillery Or [employer] Gun[employer] Orthopedics 10/09/24 01/23/25 Third Loader Relationship Specialty Start Date End Date Eugene Sanchez MD [address] [place] [address] PCP - General Family Medicine 03/29/18 Eugene Sanchez MD [address] [place] [address] NI Referring Team Family Medicine 10/08/21 PodlogarSybil LOG INSPECTOR.NEON INSTALLER [address] [place] [address] Garment Finisher Family Medicine 07/22/24 Solitario Hood, PSS [facility] [address] [place] [address] Specialty Artillery Or [employer] [facility] 10/09/24 01/23/25 Third Loader Relationship Specialty Start Date End Date Eugene Sanchez MD [address] [place] [address] PCP - General Family Medicine 03/29/18 Eugnee Sanchez MD [address] [place] [address] NI Referring Team Family Medicine 10/08/21 Podlogar, Sybil LOG INSPECTOR.NEON INSTALLER [address] [place] [address] Garment Finisher Family Medicine 07/22/24 Solitario Hood, PSS [facility] [address] [place] [address] Specialty Artillery Or [employer] [facility] 10/09/24 01/23/25 Third Loader Relationship Specialty Start Date End Date Eugene Sanchez MD [address] [place] [address] PCP - General Family Medicine 03/29/18 Eugene Sanchez MD [address] [place] [address] NI Referring Team Family Medicine 10/08/21 PodlogarSybil, LOG INSPECTOR.NEON INSTALLER [address] [place] [address] Garment Finisher Family Medicine 07/22/24 Solitario Hood, [facility] [address] [place] [address] Specialty Artillery Or [employer] [facility] 10/09/24 01/23/25 Third Loader Relationship Specialty Start Date End Date Eugene Sanchez MD [address] [place] [address] PCP - General Family Medicine 03/29/18 Eugene Sanchez MD [address] [place] [address] NI Referring Team Family Medicine 10/08/21 Podlogar, Sybil, LOG INSPECTOR.NEON INSTALLER [address] [place] [address] Garment Finisher Family Medicine 07/22/24 SissenBlasin, PSS [facility] [address] [place] [address] Specialty Artillery [employer] [facility] 10/09/24 01/23/25 Third Loader Relationship Specialty Start Date End Date Eugene Sanchez MD [address] [place] [address] PCP - General Family Medicine 03/29/18 Eugene Sanchez MD [address] [place] [address] NI Referring Team Family Medicine 10/08/21 PodlogSybil baker APRN.NEON INSTALLER [address] [place] [address] Garment Finisher Family Medicine 07/22/24 Solitario Hood, PSS [facility] [address] [place] [address] Specialty Artillery Or [employer] [facility] 10/09/24 01/23/25 Duyen Foley APRN.NEON INSTALLER [address] [place] [address] Garment Finisher Family [facility] 10/27/24 Third Loader Relationship Specialty Start Date End Date Eugene Sanchez MD [address] [place] [address] PCP - General Family Medicine 03/29/18 Eugene Sanchez MD [address] [place] [address] NI Referring Team Family Medicine 10/08/21 PodlogarSybil APRN.NEON INSTALLER [address] [place] [address] Garment Finisher Family Medicine 07/22/24 Solitario Hood, [facility] [address] [place] [address] Specialty Artillery [employer] [facility] 10/09/24 01/23/25 Duyen Foley APRN.NEON INSTALLER [address] [place] [address] Garment Finisher Family Medicine 11/06/24 Third Loader Relationship Specialty Start Date End Date Eugene Sanchez MD [address] [place] [address] PCP - General Family Medicine 03/29/18 Eugene Sanchez MD [address] [place] [address] NI Referring Team Family Medicine 10/08/21 PodlogarSybil APRN.NEON INSTALLER [address] [place] [address] Garment Finisher Family Medicine 07/22/24 Solitario Hood, [facility] [address] [place] [address] Specialty Artillery Or [employer] [facility] 10/09/24 01/23/25 Duyen Foley APRN.NEON INSTALLER [address] [place] [address] Garment Finisher Family [facility] 11/06/24 Third Loader Relationship Specialty Start Date End Date Eugene Sanchez MD [address] [place] [address] PCP - General Family Medicine 03/29/18 Eugene Sanchez MD [address] [place] [address] NI Referring Team Family Medicine 10/08/21 PodlogarSybil APRN.NEON INSTALLER [address] [place] [address] Garment Finisher Family [facility] 07/22/24 Solitario Hood, PSS [facility] [address] [place] [address] Specialty Artillery Or [employer] [facility] 10/09/24 01/23/25 Duyen Foley APRN.NEON INSTALLER [address] [place] [address] Garment Finisher Family [facility] 11/06/24 Third Loader Relationship Specialty Start Date End Date Eugene Sanchez MD [address] [place] [address] PCP - General Family Medicine 03/29/18 Eugene Sanchez MD [address] [place] [address] NI Referring Team Family Medicine 10/08/21 PodlogSybil baker, LOG INSPECTOR.NEON INSTALLER [address] [place] [address] Garment Finisher Family Medicine 07/22/24 Solitario Hood, [facility] [address] [place] [address] Specialty Artillery [employer] [facility] 10/09/24 01/23/25 Duyen Foley, LOG INSPECTOR.NEON INSTALLER [address] [place] [address] [facility] 11/06/24 Third Loader Relationship Specialty Start Date End Date Eugene Sanchez MD [address] [place] [address] PCP - General Family Medicine 03/29/18 Eugene Sanchez MD [address] [place] [address] NI Referring Team Family Medicine 10/08/21 NishalogSybil baker, LOG INSPECTOR.NEON INSTALLER [address] [place] [address] Garment Finisher Family Medicine 07/22/24 Solitario Hood, P[facility] [address] [place] [address] Specialty Artillery Or [employer] [facility] 10/09/24 01/23/25 Duyen Foley APRN.NEON INSTALLER [address] [place] [address] Garment Finisher Family [facility] 11/06/24 Third Loader Relationship Specialty Start Date End Date Eugene Sanchez MD [address] [place] [address] PCP - General Family Medicine 03/29/18 Eugene Sanchez MD [address] [place] [address] NI Referring Team Family Medicine 10/08/21 PodlogarSybil APRN.NEON INSTALLER [address] [place] [address] Garment Finisher Family Medicine 07/22/24 Solitario Hood, [facility] [address] [place] [address] Specialty Artillery Or [employer] [facility] 10/09/24 01/23/25 Duyen Foley APRN.NEON INSTALLER [address] [place] [address] Garment Finisher Family [facility] 11/06/24 Third Loader Relationship Specialty Start Date End Date Eugene Sanchez MD [address] [place] [address] PCP - General Family Medicine 03/29/18 Eugene Sanchez MD [address] [place] [address] NI Referring Team Family Medicine 10/08/21 Podsangeethaar, Sybil, LOG INSPECTOR.NEON INSTALLER [address] [place] [address] Garment Finisher Family Medicine 07/22/24 Solitario Hood, [facility] [address] [place] [address] Specialty Artillery Or [employer] [facility] 10/09/24 01/23/25 Duyen Foley LOG INSPECTOR.NEON INSTALLER [address] [place] [address] Garment Finisher Family Medicine 11/06/24 Third Loader Relationship Specialty Start Date End Date Eugene Sanchez MD [address] [place] [address] PCP - General Family Medicine 03/29/18 Eugene Sanchez MD [address] [place] [address] NI Referring Team Family Medicine 10/08/21 PodlogarSybil LOG INSPECTOR.NEON INSTALLER [address] [place] [address] Garment Finisher Family Medicine 07/22/24 Solitario Hood, [facility] [address] [place] [address] Specialty Artillery Or [employer] [facility] 10/09/24 01/23/25 Duyen Foley LOG INSPECTOR.NEON INSTALLER [address] [place] [address] Garment Finisher Family Medicine 11/06/24 Third Loader Relationship Specialty Start Date End Date Eugene Sanchez MD [address] [place] [address] PCP - General Family Medicine 03/29/18 Eugene Sanchez MD [address] [place] [address] NI Referring Team Family Medicine 10/08/21 PodlogarSybil APRN.NEON INSTALLER [address] [place] [address] Garment Finisher Family Medicine 07/22/24 Solitario Hood, P[facility] [address] [place] [address] Specialty Artillery [employer] [facility] 10/09/24 01/23/25 Duyen Foley APRN.NEON INSTALLER [address] [place] [address] Garment Finisher Family [facility] 11/06/24 Third Loader Relationship Specialty Start Date End Date Eugene Sanchez MD [address] [place] [address] PCP - General Family Medicine 03/29/18 Eugene Sanchez MD [address] [place] [address] NI Referring Team Family Medicine 10/08/21 PodlogarSybil APRN.NEON INSTALLER [address] [place] [address] Garment Finisher Family Medicine 07/22/24 Solitario Hood, PSS [facility] [address] [place] [address] Specialty Artillery [employer] [facility] 10/09/24 01/23/25 Duyen Foley APRN.NEON INSTALLER [address] [place] [address] Garment Finisher Family Medicine 11/06/24 Third Loader Relationship Specialty Start Date End Date Eugene Sanchez MD [address] [place] [address] PCP - General Family Medicine 03/29/18 Eugene Sanchez MD [address] [place] [address] NI Referring Team Family Medicine 10/08/21 PodlogarSybil APRN.NEON INSTALLER [address] [place] [address] Garment Finisher Family Medicine 07/22/24 Solitario Hood, PSS [facility] [address] [place] [address] Specialty Artillery [employer] [facility] 10/09/24 01/23/25 Duyen Foley APRN.NEON INSTALLER [address] [place] [address] Garment Finisher Family [facility] 11/06/24 Third Loader Relationship Specialty Start Date End Date Eugene Sanchez MD [address] [place] [address] PCP - General Family Medicine 03/29/18 Eugene Sanchez MD [address] [place] [address] NI Referring Team Family Medicine 10/08/21 PodlogarSybil LOG INSPECTOR.NEON INSTALLER [address] [place] [address] Garment Finisher Family [facility] 07/22/24 Solitario Hood, PSS [facility] [address] [place] [address] Specialty Artillery Or [employer] Gun[employer] [facility] 10/09/24 01/23/25 Duyen Foley APRN.NEON INSTALLER [address] [place] [address] Garment Finisher Family Medicine 11/06/24 Dean Tinsley MD [address] [place] [address] Referring Orthopedics 12/22/24 Dean Tinsley MD [address] [place] [address] 354[address] Home Care Provider Orthopedics 12/22/24 Third Loader Relationship Specialty Start Date End Date Eugene Sanchez MD [address] [place] [address] PCP - General Family Medicine 03/29/18 Eugene Sanchez MD [address] [place] [address] NI Referring Team Family Medicine 10/08/21 NishalogSybil baker APRN.NEON INSTALLER [address] [place] [address] [facility] Family Medicine 07/22/24 [facility] [address] [place] [address] Specialty Artillery Or Naval Gunfire Observer Orthopedics 10/09/24 01/23/25 Duyen Foley APRN.NEON INSTALLER [address] [place] [address] [facility] Family Medicine 11/06/24 Dean Tinsley MD [address] [place] [address] Referring Orthopedics 12/22/24 Dean Tinsley MD [address] [place] [address] Home Care Provider Orthopedics 12/22/24 Third Loader Relationship Specialty Start Date End Date Eugene Sanchez MD [address] [place] [address] PCP - General Family Medicine 03/29/18 Eugene Sanchez MD [address] [place] [address] NI Referring Team Family Medicine 10/08/21 PodlogarSybil APRN.NEON INSTALLER [address] [place] [address] Garment Finisher Family Medicine 07/22/24 Solitario Hood, [facility] [address] [place] [address] Specialty Artillery Or [employer] Gun[employer] Observer Orthopedics 10/09/24 01/23/25 Dean Tinsley MD [address] [place] [address] Referring Orthopedics 12/22/24 Dean Tinsley MD [address] [place] [address] Home Care Provider Orthopedics 12/22/24 Third Loader Relationship Specialty Start Date End Date Eugene Sanchez MD [address] [place] [address] PCP - General Family Medicine 03/29/18 Eugene Sanchez MD [address] [place] [address] NI Referring Team Family Medicine 10/08/21 Podlogar, Sybil, LOG INSPECTOR.NEON INSTALLER [address] [place] [address] Garment Finisher Family Medicine 07/22/24 Solitario Hood, [facility] [address] [place] [address] Specialty Artillery Or [employer] Gunfire Observer Orthopedics 10/09/24 01/23/25 Dean Tinsley MD [address] [place] [address] 288[address] Referring Orthopedics 12/22/24 Dean Tinsley MD [address] [place] [address] Home Care Provider Orthopedics 12/22/24 Third Loader Relationship Specialty Start Date End Date Eugene Sanchez MD [address] [place] [address] PCP - General Family Medicine 03/29/18 Eugene Sanchez MD [address] [place] [address] NI Referring Team Family Medicine 10/08/21 PodlogarSybil, LOG INSPECTOR.NEON INSTALLER [address] [place] [address] Garment Finisher Family Medicine 07/22/24 Solitario Hood, [facility] [address] [place] [address] Specialty Artillery Or [employer] Gunfire Observer Orthopedics 10/09/24 01/23/25 Dean Tinsley MD [address] [place] [address] Referring Orthopedics 12/22/24 Dean Tinsley MD [address] [place] [address] Home Care Provider Orthopedics 12/22/24 Third Loader Relationship Specialty Start Date End Date Eugene Sanchez MD [address] [place] [address] PCP - General Family Medicine 03/29/18 Eugene Sanchez MD [address] [place] [address] NI Referring Team Family Medicine 10/08/21 Sybil Samaniego APRN.NEON INSTALLER [address] [place] [address] Garment Finisher Family Medicine 07/22/24 Solitario Hood [facility] [address] [place] [address] Specialty Artillery Or [employer] Gunfire Observer Orthopedics 10/09/24 01/23/25 Dean Tinsley MD [address] [place] [address] Referring Orthopedics 12/22/24 Dean Tinsley MD [address] [place] [address] Home Care Provider Orthopedics 12/22/24 Third Loader Relationship Specialty Start Date End Date Eugene Sanchez MD [address] [place] [address] PCP - General Family Medicine 03/29/18 Eugene Sanchez MD [address] [place] [address] NI Referring Team Family Medicine 10/08/21 Podlogar, Sybil, LOG INSPECTOR.NEON INSTALLER [address] [place] [address] Garment Finisher Family Medicine 07/22/24 Solitario Hood, [facility] [address] [place] [address] Specialty Artillery Or [employer] Gunfire Observer Orthopedics 10/09/24 01/23/25 Dean Tinsley MD [address] [place] [address] Referring Orthopedics 12/22/24 Dean Tinsley MD [address] [place] [address] Home Care Provider Orthopedics 12/22/24 Third Loader Relationship Specialty Start Date End Date Eugene Sanchez MD [address] [place] [address] PCP - General Family Medicine 03/29/18 Eugene Sanchez MD [address] [place] [address] NI Referring Team Family Medicine 10/08/21 Podlogar, Sybil, LOG INSPECTOR.NEON INSTALLER [address] [place] [address] Garment Finisher Family Medicine 07/22/24 Solitario Hood, [facility] [address] [place] [address] Specialty Artillery Or [employer] Gunfire Observer Orthopedics 10/09/24 01/23/25 Dean Tinsley MD [address] [place] [address] 14513 Referring Orthopedics 12/22/24 Dean Tinsley MD [address] [place] [address] Home Care Provider Orthopedics 12/22/24 Third Loader Relationship Specialty Start Date End Date Eugene Sanchez MD [address] [place], [place] 689761 PCP - General Family Medicine 03/29/18 Eugene Sanchez MD [address] [place] [address] Referring Team Family Medicine 10/08/21 Sybil Samaniego APRN.NEON INSTALLER [address] [place] [address] Garment Finisher Family Medicine 07/22/24 Dean Tinsley MD [address] [place] [address] Referring Orthopedics 12/22/24 Dean Tinsley MD [address] [place] [address] Home Care Provider Orthopedics 12/22/24 Duyen Foley APRN.NEON INSTALLER [address] [place] [address] Garment Finisher Family Medicine 01/25/25 Third Loader Relationship Specialty Start Date End Date Eugene Sanchez MD [address] [place] [address] PCP - General Family Medicine 03/29/18 Eugene Sanchez MD [address] [place] [address] NI Referring Team Family Medicine 10/08/21 NishalogarSybil APRN.NEON INSTALLER [address] [place] [address] Garment Finisher Family [facility] 07/22/24 Dean Tinsley MD [address] [place] [address] [phone] Referring Orthopedics 12/22/24 Dean Tinsley MD [address] [place] [address] [phone] Home Care Provider Orthopedics 12/22/24 Duyen Foley APRN.NEON INSTALLER [address] [place] [address] [facility] 01/25/25 Third Loader Relationship Specialty Start Date End Date Eugene Sanchez MD [address] [place] [address] PCP - General Family Medicine 03/29/18 Eugene Sanchez MD [address] [place] [address] NI Referring Team Family Medicine 10/08/21 NishalogSybil baker, LOG INSPECTOR.NEON INSTALLER [address] [place] [address] Garment Finisher Family [facility] 07/22/24 Dean Tinsley MD [address] [place] [address] Referring Orthopedics 12/22/24 Dean Tinsley MD [address] [place] [address] Home Care Provider Orthopedics 12/22/24 Duyen Foley APRN.NEON INSTALLER [address] [place] [address] Garment Finisher Family Medicine 01/25/25 Third Loader Relationship Specialty Start Date End Date Eugene Sanchez MD [address] [place] [address] PCP - General Family Medicine 03/29/18 Eugene Sanchez MD [address] [place] [address] Referring Team Family Medicine 10/08/21 PodlogarSybil APRN.NEON INSTALLER [address] [place] [address] Garment Finisher Family Medicine 07/22/24 Dean Tinsley MD [address] [place] [address] Referring Orthopedics 12/22/24 Dean Tinsley MD [address] [place] [address] Home Care Provider Orthopedics 12/22/24 Duyen Foley APRN.NEON INSTALLER [address] [place] [address] Garment Finisher Family Medicine 01/25/25 Third Loader Relationship Specialty Start Date End Date Eugene Sanchez MD [address] [place] [address] PCP - General Family Medicine 03/29/18 Eugene Sanchez MD [address] [place] [address] Referring Team Family Medicine 10/08/21 PodlogarSybil APRN.NEON INSTALLER [address] [place] [address] Garment Finisher Family Medicine 07/22/24 [facility] [address] [place] [address] Specialty Artillery Or [employer] Gunfire Observer Orthopedics 10/09/24 01/23/25 Duyen Foley APRN.NEON INSTALLER [facility] [place] [address] Garment Finisher Family [facility] 11/06/24 12/31/24 Dean Tinsley MD [address] [place] [address] 20013 Referring Orthopedics 12/22/24 Dean Tinsley MD [address] [place] [address] Home Care Provider Orthopedics 12/22/24 Duyen Foley LOG INSPECTOR.NEON INSTALLER [address] [place], [place] [id number] Garment Finisher Family [facility] 01/25/25 Third Loader Relationship Specialty Start Date End Date Eugene Sanchez MD [address] [place], [place] 243151 PCP - General Family Medicine 03/29/18 Eugene Sanchez MD [address] [place] [address] NI Referring Team Family Medicine 10/08/21 NishalogSybil baker APRN.NEON INSTALLER [address] [place] [address] Garment Finisher Family Medicine 07/22/24 Dean iTnsley MD [address] [place] [address] Referring Orthopedics 12/22/24 Dean Tinsley MD [address] [place] [address] [phone] Home Care Provider Orthopedics 12/22/24 Duyen Foley APRN.NEON INSTALLER [address] [place] [address] [facility] 01/25/25 Third Loader Relationship Specialty Start Date End Date Eugene Sanchez MD [address] [place] [address] PCP - General Family Medicine 03/29/18 Eugene Sanchez MD [address] [place] [address] NI Referring Team Family Medicine 10/08/21 Sybil Samaniego APRN.NEON INSTALLER [address] [place] [address] Garment Finisher Family Medicine 07/22/24 Dean Tinsley MD [address] [place] [address] Referring Orthopedics 12/22/24 Dean Tinsley MD [address] [place] [address] Home Care Provider Orthopedics 12/22/24 Duyen Foley, GITA.NEON INSTALLER [address] [place] [address] Garment Finisher Family Medicine 01/25/25 Third Loader Relationship Specialty Start Date End Date Eugene Sanchez MD [address] [place] [address] PCP - General Family Medicine 03/29/18 Eugene Sanchez MD [address] [place] [address] NI Referring Team Family Medicine 10/08/21 PodlogarSybil APRN.NEON INSTALLER [address] [place] [address] Garment Finisher Family Medicine 07/22/24 Dean Tinsley MD [address] [place] [address] Referring Orthopedics 12/22/24 Dean Tinsley MD [address] [place], [place] [phone] Home Care Provider Orthopedics 12/22/24 Duyen Foley, LOG INSPECTOR.NEON INSTALLER [address] [place] [address] Garment Finisher Family Medicine 01/25/25 Third Loader Relationship Specialty Start Date End Date Eugene Sanchez MD [address] [place], [place] 976851 PCP - General Family Medicine 03/29/18 Eugene Sanchez MD [address] [place], [place] 588421 NI Referring Team Family Medicine 10/08/21 PodlogarSybil APRN.NEON INSTALLER [address] [place], [place] 639101 [facility] 07/22/24 Dean Tinsley MD [address] [place] [address] Referring Orthopedics 12/22/24 Dean Tinsley MD [address] [place] [address] Home Care Provider Orthopedics 12/22/24 Duyen Foley APRN.NEON INSTALLER [address] [place], [place] 985121 [facility] 01/25/25 Third Loader Relationship Specialty Start Date End Date Eugene Sanchez MD [address] [place] [address] PCP - General Family Medicine 03/29/18 Eugene Sanchez MD [address] [place] [address] NI Referring Team Family Medicine 10/08/21 PodlogySbil baker APRN.NEON INSTALLER [address] [place] [address] [facility] 07/22/24 Dean Tinsley MD [address] [place] [address] Referring Orthopedics 12/22/24 Dean Tinsley MD [address] [place] [address] Home Care Provider Orthopedics 12/22/24 Duyen Foley APRN.NEON INSTALLER [address] [place] [address] [facility] 01/25/25 Goals (unrecognized section and content) Goals may be documented in a n alternate sectionGoals may be documented in an alternate section Inactive Administered Medications - up to 3 most recent administrations Administered Medications (un recognized section and content) Medication Order MAR Action Action Date Dose Rate Site BUPivacaine (PF) 0.5 % (5 mg/mL) 2.5 mg injection 2.5 mg (0.5 mL), INTRA-ARTICULAR, ONCE, 1 dose, On Wed10/01/23 at 1130 Given 10/01/2023 4:14 PM EST 2.5 mg Foot, Left dexAMETHasone sodium phosphate 2 mg injection (DECADRON) 2 mg, INTRA-ARTICULAR, ONCE, 1 dose, On Wed10/01/23 at 1130 Given 10/01/2023 4:15 PM EST 2 mg Foot, Left triamcinolone acetonide 5 mg injection (KeNALog 10) 5 mg, INTRA-ARTICULAR, ONCE, 1 dose, On Wed10/01/23 at 1130 Given 10/01/2023 4:14 PM EST 5 mg Foot, Left FOR RECORDS PERTAINING TO PATIENTS WHO ARE OR HAVE BEEN ENROLLED IN A CHEMICAL DEPENDENCY/SUBSTANCEABUSE PROGRAM, SOME INFORMATION MAY BE OMITTED. This clinical summary was aggregated from multiple sources. Caution should be exercised in using it in the provision of clinical care. This summary normalizes information from multiple sources, and as a consequence, information in this document may materially change the coding, format and clinical context of patient data. In addition, data may be omitted in some cases. CLINICAL DECISIONS SHOULD BE BASED ON THE PRIMARY CLINICAL RECORDS. [facility]. provides no warranty or guarantee of the accuracy or completeness of information in this document.
--- NOTE | 2025-02-24 13:56 | EDS_ITS ---
HPI History of Present Illness Chief Complaint: Fall Informant: patient Narrative Narrative: Patient is a 64-year-old female with history of extensive orthopedic history with recent removal of ryan from her right femur and prior right total hip arthroplasty (follows with Dr. Tinsley) presenting after mechanical fall. Patient was visiting her [id number] upstairs and she was in discharge. They were trying to on snap her down and she was pulling while her [id number]-[id number] was pulling and then all of the steps came undone and she lost her balance falling. She landed on her buttocks and left side. Is complaining of pain at her right elbow and left hip as well as mild soreness at her right knee. Does have a knee brace on her right knee with 30 degrees of motion. Patient states she normally has gabapentin and muscle relaxer for pain control. Is no longer on any opioid pain medication from her postoperative period. Denies any new numbness or tingling. Denies hitting her head. Not on a blood thinner. No other complaints or concerns at this time. She states she is otherwise been feeling well recently. Denies any lightheadedness or dizziness. [facility] Medical History Vision loss, bilateral Traumatic brain injury GERD (gastroesophageal reflux disease) Pure hypercholesterolemia Vitamin D deficiency B12 deficiency History of iron deficiency anemia Seizure disorder Diabetes mellitus, type 2 TIA (transient ischemic attack) Depression Essential hypertension Branch retinal vein occlusion of both eyes Acute blood loss anemia Unspecified intestinal obstruction Osteoporosis Insomnia Arthritis Glaucoma Chronic anemia Peptic ulcer disease Anxiety Hypothyroidism Migraine Home Medications ?Medication ?Instructions ?Recorded ?Last Taken ?Type levothyroxine 50 mcg tablet 50 mcg PO DAILY thyroid 01/12/18 07:00 History 50 MCG pantoprazole 40 mg tablet,delayed 40 mg PO BID stomach 07/24/13 08/23/21 History release latanoprost 0.005 % eye drops 1 drp EACH EYE QHS eye h ealth 12/16/15 12/15/15 History rizatriptan 10 mg disintegrating 10 mg PO DAILY PRN WI N headache 12/16/15 Unknown History tablet cholecalciferol (vitamin D3) 25 50,000 unit PO FR supp lement 12/30/17 08/23/21 History mcg (1,000 unit) tablet dorzolamide (PF) 2 % (PF) eye drops 1 drp EACH EYE BID eye health 08/23/21 Unknown History folic acid 1 mg tablet 1 mg PO DAILY supplement 04/0608/23/21 History lorazepam 0.5 mg tablet 0.5 mg PO BID PRN Anxiety 08/22/21 History metformin 500 mg tablet 500 mg PO DAILY BS 08/23/21 08/23/21 History topiramate 100 mg tablet 100 mg PO DAILY migraine 04/0608/22/21 History venlafaxine 75 mg tablet 75 mg PO DAILY@1700 mood 04/0608/23/21 History atorvastatin 20 mg tablet 20 mg PO QHS cholesterol 12/06 Unknown History topiramate 100 mg tablet (Topamax) 300 mg PO QHS migra ine 12/25/24 Unknown History venlafaxine 75 mg tablet 112.5 mg PO BID@0800,1200 mo od 12/25/24 Unknown History acetaminophen 500 mg tablet 1,000 mg (2 x 500 mg) PO Q 8 #90 01/04/25 Unknown Rx tabs arginine 7 gram-glutam 7 1 packet PO BIDCM #30 ea Unknown Rx gram-CaHMB 1.5 oeiu-jshym-oo-min oral pwd pkt (Juan F (with collagen)) ascorbic acid (vitamin C) 500 mg 500 mg PO LUNCH #30 t abs 01/04/25 Unknown Rx tablet aspirin 81 mg tablet,delayed 81 mg PO BID dvt prophyla xis #1 TAB 01/04/25 Unknown Rx release cyclobenzaprine 5 mg tablet 5 mg PO TID PRN Spasms #21 tabs 01/04/25 Unknown Rx doxycycline hyclate 100 mg capsule 100 mg PO BID atb p ost op #60 caps 01/04/25 Unknown Rx ferrous sulfate 325 mg (65 mg 325 mg PO LUNCH #30 tabs 01/04/25 Unknown Rx iron) tablet (FeroSul) gabapentin 600 mg tablet 600 mg PO TID #90 tabs 01/04 Unknown Rx multivitamin 1 tab PO LUNCH #1 TAB Unknown Rx ondansetron 4 mg disintegrating 4 mg PO Q8H PRN PRN na usea #10 tabs 01/04/25 Unknown Rx tablet oxycodone 5 mg tablet 5 mg PO Q6H PRN PRN Pain Sco re 01/04/25 Unknown Rx pain 4-10 1 week #28 tabs polyethylene glycol 3350 17 17 g PO DAILY PRN PRN cons tipation 01/04/25 Unknown Rx gram/dose oral powder (Miralax) #1 g sennosides 8.6 mg-docusate sodium 2 tab PO BID #120 ta bs 01/04/25 Unknown Rx 50 mg tablet (Stimulant Laxative Plus) trazodone 150 mg tablet 150 mg PO QHS #30 tabs 01/05 Unknown Rx Allergy/AdvReac Type Severity Reaction Status Date / Time No Known Allergies Allergy Verified 02/24/25 11:58 Family History Sister Asthma Diabetes Hypertension High cholesterol Osteoporosis Mother Diabetes High cholesterol Hypertension Osteoporosis Thyroid disorder Skin cancer Brother Diabetes Hypertension High cholesterol Father Heart disease Hypertension CVA (cerebral vascular accident) Surgical History History of total knee arthroplasty History of hysterectomy History of lumpectomy of right breast History of tubal ligation History of gastric bypass History of esophagogastroduodenoscopy (EGD) (2016) History of laparoscopic cholecystectomy Social History household members: spouse housing: house number of children: 4 Smoking Status: Never smoker alcohol intake: never substance use type: does not use ROS ROS ED Constitutional Constitutional ED: Denies chills or fever(s) Eyes Eyes: Denies change in vision Gastrointestinal Gastrointestinal: Denies nausea or vomiting Musculoskeletal Musculoskeletal: Reports arthralgias, myalgias and other Details: Left hip pain, right knee pain, right elbow. Integumentary Denies Abrasions or rash Neurologic Neurologic: Denies paresthesias or weakness Hematologic/Lymphatic Hematologic/Lymphatic: Denies easy bleeding or easy bruising EXAM Physical Exam Const Vital Signs: 02/24/25 11:58 02/24/25 13:14 02/24/25 14:03 Temperature 97.8 F 97.9 F Temperature Source Oral Pulse Rate 82 64 Respiratory Rate 16 18 Respiratory Effort Normal Non-Labored Respiratory Depth Normal Respiratory Pattern Normal Blood Pressure 93/63 136/64 H Blood Pressure Mean 73 88 Pulse Ox 98 100 Oxygen Delivery Method Room Air Room Air Positive well nourished and well developed General Appearance ED: well developed and NAD HEENT atraumatic Nose: Negative for septum abnormal Eyes PERRL Chest Wall inspection of chest normal and palpation of chest normal Resp normal respiratory effort and clear to auscultation bilaterally Cardio regular rhythm Cardio Narrative: 2+ radial and DP pulses Rate: regular rate Back/Spine normal to inspection and no thoracic nor lumbar tenderness Extremity Extremity Narrative: Right upper extremity?no obvious deformity or effusion. Right elbow?no pain with range of motion. Patient has vague pain at the right elbow that is not reproducible with any direct palpation. No other bony tenderness or deformity of the upper extremity. On the right lower extremity she has mild pedal edema bilaterally. There is a hinged knee immobilizer on the right lower extremity. Some swelling of the right knee however range of motion is not tested as she has the immobilizer on and this is all relatively new/postop. No pain with range of motion of the bilateral hips. Normal range of motion of the left hip. Patient is reports some vague pain in her left groin area. Pelvis is stable. No left knee tenderness palpation. Normal ankles and feet. Neuro oriented x3, moves all extremities, no focal motor deficits and no sensory deficits noted Psych mental status grossly normal Skin no rashes or lesions noted and no wounds MDM MDM MDM Narrative Medical decision making narrative: Patient is evaluated after a mechanical fall. Complaint of pain of her right elbow, right knee but did not sustain any trauma to her right knee and right hip area. She initially his vital signs significant for lo soft w blood pressure however she is asymptomatic from this. She states has been in her normal state of health. Denies any associated symptoms with low blood pressure, shortness of breath or chest discomfort. I do not think she needs workup for this. X-ray of the elbow reviewed by myself does not show any acute process however in radiology interpretation there is a questionable curvilinear calcification of the coronary process of the ulna on the lateral view with no significant joint effusion. Could be tiny fracture fragment or artifact. I have a lower suspici on for fracture given her physical exam and no pain with range of motion of the elbow however will place her in a splint counseled on risk of small fracture and need for outpatient orthopedic follow-up. Left hip x-ray reviewed by myself as well as radiology does not show any acute hip or pelvic fracture. Right knee shows postoperative changes as well as slight margin of the distal femur with trabecular thickening which could be related to metabolic disorder or neoplasm. She did recently have a ryan removed from not sure if this is actually postoperative. Patient informed of this abnormality and need for outpatient follow-up with her orthopedist. Patient able in the ER. Is given Tylenol. Is offered a prescription for pain medication given her fall but declines. Will be discharged home. Given return precautions. Radiography Diagnostic Testing: Clinical Impression(s) from Imaging Studies Elbow X-Ray 02/24/25 12:47 IMPRESSION: Questionable curvilinear calcification near the coronary process of the ulna could represent tiny fracture fragment, though artifact could appear similar. Correlate with exam, and consider repeat radiographs in 10-14 days. Reading Location: [facility] Hip/Pelvis X-Ray 02/24/25 12:47 IMPRESSION: No displaced pelvic fracture. Consider CT if there is persistent concern for a nondisplaced fracture. Reading Location: [facility] Knee X-Ray 02/24/25 12:47 IMPRESSION: 1. No displaced fracture or hardware complication of the right knee. Knee joint effusion and swelling may be postoperative and/or posttraumatic. 2. Slight enlargement of the distal femur with trabecular thickening, as can be seen with a metabolic disorder (such as Paget's disease) or neoplasm. Recommend comparison with prior radiographs if available. Reading Location: [facility] Discharge Plan Triage Chief Complaint: Fall ED Provider: Christine Fregoso Dx/Rx/DC Orders Clinical Impression: Fall, Acute pain of left hip, Elbow pain, right, S/P right knee surgery Instructions: ED Arthralgia, ED Mechanical Fall Prescriptions: No Action levothyroxine 50 MCG tablet 50 mcg PO DAILY Patient Comments: THYROID pantoprazole 40 MG tablet 40 mg PO BID Patient Comments: ACID REFLUX latanoprost 1 DROP bottle 1 drp EACH EYE QHS Patient Comments: EYE DROPS rizatriptan 10 MG tablet,disintegrating 10 mg PO DAILY PRN PRN (Reason: headache) Patient Comments: can repeat 1 time in 2 hours PRN, no more than 2 doses in a 24 hour period cholecalciferol (vitamin D3) 1,000 unit tablet 50,000 unit PO FR Patient Comments: SUPPLEMENT metformin 500 mg Tablet 500 mg PO DAILY venlafaxine 75 mg Tablet 75 mg PO DAILY@1700 lorazepam 0.5 mg Tablet 0.5 mg PO BID PRN (Reason: Anxiety) folic acid 1 mg Tablet 1 mg PO DAILY topiramate 100 mg Tablet 100 mg PO DAILY dorzolamide (PF) 2 % Drops 1 drp EACH EYE BID atorvastatin 20 mg tablet 20 mg PO QHS venlafaxine 75 mg tablet 112.5 mg PO BID@0800,1200 topiramate [Topamax] 100 mg tablet 300 mg PO QHS gabapentin 600 mg Tablet 600 mg PO TID Qty: 90 0RF acetaminophen 500 mg Tablet 1,000 mg PO Q8 Qty: 90 0RF ascorbic acid (vitamin C) 500 mg Tablet 500 mg PO LUNCH Qty: 30 0RF ferrous sulfate [FeroSul] 325 mg (65 mg iron) Tablet 325 mg PO LUNCH Qty: 30 0RF Juan F (with collagen) 7-7-1.5 gram Powder In Packet 1 packet PO BIDCM Qty: 30 0RF multivitamin Tablet 1 tab PO LUNCH Qty: 1 0RF sennosides-docusate sodium [Stimulant Laxative Plus] 8.6-50 mg Tablet 2 tab PO BID Qty: 120 0RF ondansetron 4 mg Tablet,Disintegrating 4 mg PO Q8H PRN PRN (Reason: nausea) Qty: 10 0RF oxycodone 5 mg Tablet 5 mg PO Q6H PRN PRN (Reason: Pain Score pain 4-10) 7 Days Qty: 28 0RF doxycycline hyclate 100 mg capsule 100 mg PO BID Qty: 60 0RF aspirin 81 mg tablet,delayed release (DR/EC) 81 mg PO BID Qty: 1 0RF Rx Instructions: Take this until the orthopedic surgeon tells you to stop. Usually people take it for 1 month after a knee replacement. polyethylene glycol 3350 [Miralax] 17 gram/dose powder 17 g PO DAILY PRN PRN (Reason: constipation) Qty: 1 0RF Rx Instructions: If you find you are getting constipated again start taking this once a day. cyclobenzaprine 5 mg Tablet 5 mg PO TID PRN (Reason: Spasms) Qty: 21 0RF trazodone 150 mg tablet 150 mg PO QHS Qty: 30 0RF Primary Care Provider: Rashmi Salinas Deanna Referrals: Dean Tinsley MD [Non-Staff] - Rashmi Salinas Deanna, DO [Primary Care Provider] - Activity Restrictions/Additional Instructions: Your your x-ray showed an abnormality of the bones (trabecular thickening) but no fracture at the right knee. Please follow with orthopedist to ensure this is normal postoperative changes and not something more concerning. Your elbow x-r ay showed a questionable calcification of the ulna which could be a tiny fracture fragment but also could be artifact. We will place you in a splint to wear for comfort. Please follow-up with orthopedics for repeat x-ray in 10 to 14 days especially if continued pain. Your pelvic/hip x-ray did not show any acute fracture in that area. Print Language: Japanese Disposition Disposition: Home, Self Care Discharge Date/Time: 02/24/25 14:04
[2025-02-24 14:03] VITALS: BP 136/64; PULSE 64; RESP 18; TEMP 36.6; O2SAT 100
== END 2025-02-24 14:04 | disposition home or self-care (01) ==
PROVIDERS: Emergency Provider Emergency Medicine; PCP Family Medicine; Visit Provider Emergency Medicine
DX: M25.521 Pain in right elbow (principal); E11.9 Type 2 diabetes mellitus without complications; M25.552 Pain in left hip; W18.39XA Other fall on same level, initial encounter; I10 Essential (primary) hypertension; Z96.651 Presence of right artificial knee joint; Z79.82 Long term (current) use of aspirin; Z79.84 Long term (current) use of oral hypoglycemic drugs; Z79.899 Other long term (current) drug therapy
CPT/HCPCS: 73080; 73502; 73560; 99283

== ENCOUNTER → 2025-03-12 | Outpatient (CLI) | payer MEDICARE, OTHER, SELFPAY ==
--- NOTE | 2025-03-12 11:43 | RAD_ITS ---
PROCEDURE: CHEST PA AND LATERAL 03/12/2025 REASON FOR EXAM: ABNORMAL WEIGHT LOSS TECHNIQUE: CHEST PA AND LATERAL COMPARISON: 04/19/23 FINDINGS: No focal consolidation. No pleural effusion or pneumothorax. Cardiac silhouette is within normal limits. No acute fractures. Left upper quadrant milton. RAD/Chest PA and Lateral IMPRESSION: No focal consolidations. Reading Location: [facility]
--- NOTE | 2025-03-12 11:44 | RAD_ITS ---
PROCEDURE: ABDOMEN SINGLE VIEW 03/12/2025 REASON FOR EXAM: ABNORMAL WEIGHT LOSS TECHNIQUE: ABDOMEN SINGLE VIEW COMPARISON: Prior study dated December 29, 2024. FINDINGS: Bowel gas: Large amount of fecal material is seen throughout the colon. Calcifications: Surgical clips are seen in the left epigastric region as well as in the left midabdomen. Bones: There are degenerative changes of the spine. Other: RAD/Abdomen Single View IMPRESSION: Large amount of fecal material is seen in the colon. Surgical clips are seen in the left side of the epigastrium. Reading Location: [id number]
[2025-03-12 16:38] LABS: Hematocrit 34.7 % (37-47); Hemoglobin 11.1 g/dL (12.0-15.0); Immature Granulocytes Count 0.010 X10^3/uL (0.0-0.0); Mean Corp Hgb Conc 32.0 g/dL (32-36); Mean Corpuscular Volume 94.0 fL (81-99); Mean Platelet Vol. 10.3 fl (6.2-12.0); NRBC Flagged by Analyzer 0 % (0-5); Platelet Count 268 K/mm3 (150-450); RBC Distribution Width CV 13.3 % (11.6-14.6); RBC Distribution Width SD 45.9 fl (35.1-43.9); Red Blood Count 3.69 M/mm3 (4.2-5.4); White Blood Count 4.9 K/mm3 (4.4-11.0)
[2025-03-12 16:56] LABS: AST(SGOT) 35 U/L (<=31); Alanine Aminotransfer ALT/SGPT 18 U/L (<=34); Albumin, Serum 3.8 g/dL (3.4-4.8); Alkaline Phosphatase 140 U/L (35-104); Anion Gap 15 (5-15); BUN 16 mg/dL (4-19); BUN/Creat Ratio 14.1 RATIO (10-20); CORTISOL AM 15.30 ug/dL (6.02-18.40); Calcium,Total 9.6 mg/dL (7.6-11.0); Carbon Dioxide 23.7 mmol/L (21.0-32.0); Chloride 104 mmol/L (98-108); Globulin 2.6 g/dL (2.2-4.2); Glucose 102 mg/dL (70-99); Potassium 3.2 mmol/L (3.3-5.1)
[2025-03-12 17:12] LABS: CRP < 3.00 mg/L (0.0-3.0)
[2025-03-14 12:09] LABS: ANTINUCLEAR ANTIBODIES DIRECT Negative (Negative)
== END | disposition home or self-care (01) ==
PROVIDERS: PCP Family Medicine; Referring Provider Family Medicine; Visit Provider Family Medicine
DX: R63.4 Abnormal weight loss (principal)
CPT/HCPCS: 36415; 71046; 74018; 80053; 82533; 84443; 85025; 85652; 86038; 86140

== ENCOUNTER 2025-04-06 07:00 | Outpatient (RCR) | payer MEDICARE, OTHER, SELFPAY ==
--- NOTE | 2025-01-29 08:30 | HP.PTEVAL ---
Patient's Visit Information Visit Information Visit Information: TOMAS Anthony OLDER is a 64 year old F referred to Physical Therapy by Dr. Dean Tinsley MD with a diagnosis of s/p R TKA and hardware removal 12/21/24. Date of Evaluation: 01/29/25 Physical Therapist: Hussein Lund, DPT, OCS, CSCS Visit Plan Frequency: 1-2x /Week Duration: 2 Months Plan: 1-2x/week for 4-8 weeks as needed and around precautions. Pt is TDWB R brace on until at least 02/09 doctor visit. IE HEP TDWB with walker and recommended wheels, taught steps TDWB R, reviewed HEP of SLR x 3, HS sitting and supine with OP, quad set, GS, HS and piriformis stretch , all of which she was doing except SLR abd and ext, HO given. Next session treat with standing R ex TDWB R if tolerating gait and HEP well. check ROM. progress treatment as allowed by doctor to LE strenght, giat, ROM, stretching and manual. Subjective Subjective: Had rods in R leg, Needed knew knee but hip was bad. Had all the hardware taken out and put in new knee. Still waiting on healing. Was in pain before surgery. surgery was 12/21 and [facility]. Now able to have full ROM on knee. TDWB until at last next week. Pain over last couple weeks 4/10 and better than prior to surgery. using walker at home. basic ADLs shower, bathroom dressing I. Steps to bathroom and hubby is there. No spinning. HEP: AP, QS, GS, HS, SLR. chair scoot flexion, seated october. Spends day: Housework. Cuts roses and spends time outside. Pain knee pain anterior.: Pain Intensity (Out of 10): 0 Pain Intensity Range: 0 and 4 Objective Objective: -2 to 115 AROM R kne. able to SLR with 2 degree lag Walks NWB mod I with walker, taught TDWB R with R and wh walker which they will pursue and does well with this mod I. Transfers bed and chair I and moves slowly without confidence but well on bed. steps TDWB R with walker and rail SBA taught to patient today. Incisions front and top R LE healeed well without signs of redness or heat and mild scarring. Tightness in R quad is obvious. strenth R LE eext 5#, HS 8 #.Hip is 3+/5 abd and ext and 3/5 flexion SLLR. ankle is 4-/5. TUG is 25 seconds today, slow movement Balance/Special Test Scores WOMAC Total Score: 59 WOMAC Percentatge: 38.5500 Goals Goal 1:: AROM 0-125 R knee without pain Goal Time Frame: 2-4 Weeks Goal 2:: Walk , when allowed by physician WBAT without gait deviations in community Goal Time Frame: 6-8 Weeks Goal 3:: steps reciprocally with onee rail when allowed Goal Time Frame: 6-8 Weeks Goal 4:: Pt feel paina nd funciton 75% better at 1/10 at worst Goal Time Frame: 6-8 Weeks Goal 5:: Able to get out in garden without hesitation or concerns Goal Time Frame: 6-8 Weeks Goal 6:: I approrpiate HEP to minimize future problems Goal Time Frame: 2-4 Weeks Rehabilitation Potential Physical Therapy Diagnosis: stiffness, weakness, limited WB effecting funciton. Rehabilitation Potential: Fair Anticipated Interventions Patient/Client Instruction: Educate patient on: Condition and Risk Factors For the Purpose of:: To decrease pain, To increase ROM, To improve nutrient delivery to tissue, To improve muscle performance and motor function and To increase tolerance to activity/condition/position Therapeutic Exercise to Include: Strength training, Balance training, Postural training, Flexibilty training, Gait and locomotor training, Passive ROM and Active ROM For the Purpose of:: To decrease pain, To increase ROM, To improve nutrient delivery to tissue, To improve muscle performance and motor function, To increase tolerance to activity/condition/position and To improve gait and locomotor functions Manual Therapy Techniques to Include: Mobilization and Soft tissue mobilization For the Purpose of:: To decrease pain and To increase ROM Text: Thank you for the opportunity to evaluate your patient. For Medicare and Medicare HMO plans, please review the plan of care and approve it. It will need to be FAXED BACK to us at [phone] for Medicare purposes. For Medicare only, by signing this I certify the plan of care. Please let me know if there are questions or concerns regarding this plan of care. Physician Signature: Date:
--- NOTE | 2025-03-12 07:49 | HP.PTREVAL_ITS ---
Re-Evaluation Intro: Dr. Dean Tinsley MD, It has been my pleasure to treat TOMAS Anthony OLDER over the last 4 visits for s/p R TKA and hardware removal 12/21/24. Please see the progress note below for an update on the physical therapy plan of care! Subjective Subjective: Fall was due to pulling on mothers gown and only chipped elbow. Also loses balance sometimes, sometimes gets dizzy, not sure of pattern other than emotion. In brace all day but takes it off when I am safe. Cannot describe when that is. Using walker today for first time in a while. Has fallen with walker but not in a long time. Home exercises daily and in clinic every now and then. Not been in for two weeks. No pain unless fall or twists. Tripped on rug this am but did not fall. On prozac for depression. Objective Objective/Function: same balance with and without brace. PT takes short steps until cud adn tendency to get center og gravity outside of B OS in FW dirction and catching toe a few jarek self corrected. FGA with and without brace and now walker today. Funcitonal ROM knee and strngth on R is waker expectely than L on steps and neds rail to pull self up with just slight anterior quad discomfort. Ovrall has some shortness of steps, eemotionality, slurrd and quiet speech. has seen neuro in past but cleared and no f/u. Says sh has seeizures at home recently a week ago but hard to describe them. Cannot describe meds for these. Seems depressed with all of katia trauma oveer thee last 5 yrs but is on depression meeds, no counselling. will see PCP today at [facility] and these things along with nutrition should be addressed as she is admittedly not eating despite knowing she should. Also does movement xercises at home but has not been coming in to do strengthening in gym 3x/week. Poorly motivated. Walking around at homee without brac or walker at times admittdly despite doctors precautions. Romberg is great adn FGa is below normal but main safty concern is step length adn not picking foot up high enough(neuro) rather than balance systems. Plan Plan Plan: pt needs to f/u with PCP to address the above mentioned and likely could benefit from a neeuro consult. They will then f/u with me in a week or two. Balance/Gait/Functional tests Balance/Special Test Scores Functional Gait Assessment Score: 24 % Disability: 20.0000 CATSIB Score (Max score 120 seconds): 120 WOMAC Total Score: 59 WOMAC Percentage: 38.5500 Goals Goals Goal 1:: AROM 0-125 R knee without pain Goal Time Frame: 2-4 Weeks Goal Progress: Progressing Goal 2:: Walk , when allowed by physician WBAT without gait deviations in community Goal Time Frame: 6-8 Weeks Goal Progress: Goal Met Goal 3:: steps reciprocally with onee rail when allowed Goal Time Frame: 6-8 Weeks Goal Progress: Goal Met Goal 4:: Pt feel paina nd funciton 75% better at 1/10 at worst Goal Time Frame: 6-8 Weeks Goal Progress: 50% Goal 5:: Able to get out in garden without hesitation or concerns Goal Time Frame: 6-8 Weeks Goal 6:: I approrpiate HEP to minimize future problems Goal Time Frame: 2-4 Weeks Goal Progress: compliance? Anticipated Interventions Anticipated Interventions Patient/Client Instruction: Educate patient on: Condition and Risk Factors For the Purpose of:: To decrease pain, To increase ROM, To improve nutrient delivery to tissue, To improve muscle performance and motor function and To increase tolerance to activity/condition/position Therapeutic Exercise to Include: Strength training, Balance training, Postural training, Flexibilty training, Gait and locomotor training, Passive ROM and Active ROM For the Purpose of:: To decrease pain, To increase ROM, To improve nutrient delivery to tissue, To improve muscle performance and motor function, To increase tolerance to activity/condition/position and To improve gait and locomotor functions Manual Therapy Techniques to Include: Mobilization and Soft tissue mobilization For the Purpose of:: To decrease pain and To increase ROM Re-Evaluation Ending Re-evaluation ending: Please do not hesitate to contact me at [phone] by phone or if you have questions or concerns regarding this new plan of care! Sincerely, Hussein Lund, DPT, OCS, CSCS
--- NOTE | 2025-03-26 09:01 | HP.PTREVAL ---
Re-Evaluation Intro: Dr. Dean Tinsley MD, It has been my pleasure to treat TOMAS Anthony OLDER over the last 5 visits for s/p R TKA and hardware removal 12/21/24. Please see the progress note below for an update on the physical therapy plan of care! Subjective Subjective: Since last time, went to doctor and got some testing and got her eating again. weighing 110# and used to be 135#. Feels stronger but still weak. Doing home exercises but does not like it at so has not been in. Daily ex at homee and no problem. 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 Using cane to get around, Uses walker if going long distances. Had another seizure which two days ago which made her fall. Did not get hurt. Does have meds for this. Then gets up and goes on with life. Neuro says there is nothing they can do to help her. Wearing brace when she leaves house. Knee doctor follow up is May 09. Not much pain in leg but does happen sometimes. Steeps are still really hard after 16 but she has 18 at home. Objective Objective/Function: Some R antalgia in gait lacking L sttep length but slight and no pain. steps weaker on R but I with one rail 25 steeps today. FGA is good. Pt seems slightly more motivated despite not being in lateely. Visited doctor adn had some tests adn is eating more now. New POC appropriate with this new information to get her to I strength/motivation. Fair prognosis if motivated. Plan Plan Plan: Ptt wishes to try ex I in gym 3xweek at diffferent timee to work on compliance, may want 2x/week for a couple weeks to learn LE gym ex but will leet me kknow if sh needs this. Would rather try to do it on her own with increaseed HEP and gym on katia own time. Neew POC up to 2x/week for 4 weeks to show or progress LE strength ex Balance/Gait/Functional tests Balance/Special Test Scores Functional Gait Assessment Score: 24 % Disability: 20.0000 CATSIB Score (Max score 120 seconds): 120 WOMAC Total Score: 59 WOMAC Percentage: 38.5500 Goals Goals Goal 1:: AROM 0-125 R knee without pain Goal Time Frame: 2-4 Weeks Goal Progress: Goal Met Goal 2:: Walk , when allowed by physician WBAT without gait deviations in community Goal Time Frame: 6-8 Weeks Goal Progress: Goal Met Goal 3:: steps reciprocally with onee rail when allowed Goal Time Frame: 6-8 Weeks Goal Progress: Goal Met Goal 4:: Pt feel paina nd funciton 75% better at 1/10 at worst Goal Time Frame: 6-8 Weeks Goal Progress: 50%, needs strength Goal 5:: Able to get out in garden without hesitation or concerns Goal Time Frame: 2-4 Weeks Goal Progress: neds strength, approp Goal 6:: I approrpiate HEP to minimize future problems Goal Time Frame: 2-4 Weeks Goal Progress: compliance, approp Anticipated Interventions Anticipated Interventions Patient/Client Instruction: Educate patient on: Condition and Risk Factors For the Purpose of:: To decrease pain, To increase ROM, To improve nutrient delivery to tissue, To improve muscle performance and motor function and To increase tolerance to activity/condition/position Therapeutic Exercise to Include: Strength training, Balance training, Postural training, Flexibilty training, Gait and locomotor training, Passive ROM and Active ROM For the Purpose of:: To decrease pain, To increase ROM, To improve nutrient delivery to tissue, To improve muscle performance and motor function, To increase tolerance to activity/condition/position and To improve gait and locomotor functions Manual Therapy Techniques to Include: Mobilization and Soft tissue mobilization For the Purpose of:: To decrease pain and To increase ROM Re-Evaluation Ending Re-evaluation ending: Please do not hesitate to contact me at [phone] by phone or if you have questions or concerns regarding this new plan of care! Sincerely, Hussein Lund, DPT, OCS, CSCS
--- NOTE | 2025-04-06 07:47 | HP.PTREVAL_ITS ---
Re-Evaluation Intro: Dr. Dean Tinsley MD, It has been my pleasure to treat TOMAS Anthony OLDER over the last 6 visits for s/p R TKA and hardware removal 12/21/24. Please see the progress note below for an update on the physical therapy plan of care! Subjective Subjective: Getting workout in 3x/week in gym now. Took brace off adn exercises harder. Going up half flight of steps at home and still weak, not painful. Gaining weight 73 to 117#. Brace is off all day yesterday. Objective Objective/Function: Steps are weak on R and require UE for safety but reeciprocal with rail, no pain. FGa is improving Progressing nicely toward goals now that is consistent with gym and eating. Wants to f/u in a month adn continue on her own tilt hen. Plan Plan Plan: f/u one month to check: 1. steps 2. FGA, 3. exercises for progression(gym, squats, step ups, stretches, ROM) 4. LEFS New goal and POC to f/u one month adn pt to call prior if problems. NEW GOAL: step up x8 without railing and pt feel 80% better overall. Fair prognosis with compliance with gyma dn home HEP. Balance/Gait/Functional tests Balance/Special Test Scores Functional Gait Assessment Score: 28 % Disability: 6.6700 CATSIB Score (Max score 120 seconds): 120 WOMAC Total Score: 59 WOMAC Percentage: 38.5500 Goals Goals Goal 1:: AROM 0-125 R knee without pain Goal Time Frame: 2-4 Weeks Goal Progress: Goal Met Goal 2:: Walk , when allowed by physician WBAT without gait deviations in community Goal Time Frame: 6-8 Weeks Goal Progress: Goal Met Goal 3:: steps reciprocally with onee rail when allowed Goal Time Frame: 6-8 Weeks Goal Progress: Goal Met Goal 4:: Pt feel paina nd funciton 75% better at 1/10 at worst Goal Time Frame: 6-8 Weeks Goal Progress: 50%, needs strength Goal 5:: Able to get out in garden without hesitation or concerns Goal Time Frame: 2-4 Weeks Goal Progress: neds strength, approp Goal 6:: I approrpiate HEP to minimize future problems Goal Time Frame: 2-4 Weeks Goal Progress: Goal Met Anticipated Interventions Anticipated Interventions Patient/Client Instruction: Educate patient on: Condition and Risk Factors For the Purpose of:: To decrease pain, To increase ROM, To improve nutrient de livery to tissue, To improve muscle performance and motor function and To increase tolerance to activity/condition/position Therapeutic Exercise to Include: Strength training, Balance training, Postural training, Flexibilty training, Gait and locomotor training, Passive ROM and Active ROM For the Purpose of:: To decrease pain, To increase ROM, To improve nutrient delivery to tissue, To improve muscle performance and motor function, To increase tolerance to activity/condition/position and To improve gait and locomotor functions Manual Therapy Techniques to Include: Mobilization and Soft tissue mobilization For the Purpose of:: To decrease pain and To increase ROM Re-Evaluation Ending Re-evaluation ending: Please do not hesitate to contact me at [phone] by phone or if you have questions or concerns regarding this new plan of care! Sincerely, Hussein Lund, DPT, OCS, CSCS
--- NOTE | 2025-06-12 10:35 | HP.PT.NRP ---
Patient Information Patient Information: TOMAS BONILLA was seen in my office for initial evaluation on 01/29/25. The following Plan of Care was established for this patient: POC Established Initial Frequency: 1-2x /Week Initial Duration: 2 Months Anticipated Interventions Patient/Client Instruction: Educate patient on: Condition and Risk Factors For the Purpose of:: To decrease pain, To increase ROM, To improve nutrient delivery to tissue, To improve muscle performance and motor function and To increase tolerance to activity/condition/position Therapeutic Exercise to Include: Strength training, Balance training, Postural training, Flexibilty training, Gait and locomotor training, Passive ROM and Active ROM For the Purpose of:: To decrease pain, To increase ROM, To improve nutrient delivery to tissue, To improve muscle performance and motor function, To increase tolerance to activity/condition/position and To improve gait and locomotor functions Manual Therapy Techniques to Include: Mobilization and Soft tissue mobilization For the Purpose of:: To decrease pain and To increase ROM Last Seen Last Seen: This patient was last seen in our office 04/06/25. Pertinent comments regarding their Physical therapy will appear below: Pt seen 6 visits of POC and was I in gym and home eexercises. Was to f/u one month later to check progress but did not schedule or attend. At this point, it has been over two months and I will discontinue from my care. At this point I will be discontinuing this patient from physical therapy. I would be happy to see this patient again in the future if found appropriate by the physician. Thank you! Hussein Lund, DPT, OCS, CSCS Balance/Gait/Functional tests Balance/Special Test Scores Functional Gait Assessment Score: 28 % Disability: 6.6700 CATSIB Score (Max score 120 seconds): 120 WOMAC Total Score: 59 WOMAC Percentage: 38.5500
== END 2025-04-06 19:00 | disposition home or self-care (01) ==
LOC: PT 07:00
PROVIDERS: PCP Family Medicine; Referring Provider Orthopaedic Surgery Adult Reconstructive Orthopaedic Surgery; Visit Provider Orthopaedic Surgery Adult Reconstructive Orthopaedic Surgery
DX: Z96.651 Presence of right artificial knee joint (principal)
CPT/HCPCS: 97110; 97163; 97530

== ENCOUNTER 2025-04-18 16:02 | Inpatient (IN) | payer MEDICARE, OTHER, SELFPAY ==
[2025-04-18 16:03] VITALS: BP 101/85; PULSE 111; RESP 16; TEMP 36.8; O2SAT 100; BMI 19.5
--- NOTE | 2025-04-18 16:07 | EX.ED.DYSGE1 ---
HPI History of Present Illness Chief Complaint: Abn Labs [facility] Medical History Vision loss, bilateral Traumatic brain injury GERD (gastroesophageal reflux disease) Pure hypercholesterolemia Vitamin D deficiency B12 deficiency History of iron deficiency anemia Seizure disorder Diabetes mellitus, type 2 TIA (transient ischemic attack) Depression Essential hypertension Branch retinal vein occlusion of both eyes Acute blood loss anemia Unspecified intestinal obstruction Osteoporosis Insomnia Arthritis Glaucoma Chronic anemia Peptic ulcer disease Anxiety Hypothyroidism Migraine Home Medications ?Medication ?Instructions ?Recorded ?Last Taken ?Type levothyroxine 50 mcg tablet 50 mcg PO DAILY thyroid 07/24/13 01/12/18 07:00 History 50 MCG pantoprazole 40 mg tablet,delayed 40 mg PO BID stomach 07/24/13 08/23/21 History release latanoprost 0.005 % eye drops 1 drp EACH EYE QHS eye health 12/16/15 12/15/15 History rizatriptan 10 mg disintegrating 10 mg PO DAILY PRN PRN headache 12/16/15 Unknown History tablet cholecalciferol (vitamin D3) 25 50,000 unit PO FR supplement 12/30/17 08/23/21 History mcg (1,000 unit) tablet dorzolamide (PF) 2 % (PF) eye drops 1 drp EACH EYE BID eye health 08/23/21 Unknown History folic acid 1 mg tablet 1 mg PO DAILY supplement 08/23/21 08/23/21 History lorazepam 0.5 mg tablet 0.5 mg PO BID PRN Anxiety 08/23/21 08/22/21 History metformin 500 mg tablet 500 mg PO DAILY BS 08/23/21 08/23/21 History topiramate 100 mg tablet 100 mg PO DAILY migraine 08/23/21 08/22/21 History venlafaxine 75 mg tablet 75 mg PO DAILY@1700 mood 08/23/21 08/23/21 History atorvastatin 20 mg tablet 20 mg PO QHS cholesterol 04/19/23 Unknown History topiramate 100 mg tablet (Topamax) 300 mg PO QHS migraine 12/25/24 Unknown History venlafaxine 75 mg tablet 112.5 mg PO BID@0800,1200 mood 12/25/24 Unknown History acetaminophen 500 mg tablet 1,000 mg (2 x 500 mg) PO Q8 #90 01/04/25 Unknown Rx tabs arginine 7 gram-glutam 7 1 packet PO BIDCM #30 ea 01/04/25 Unknown Rx gram-CaHMB 1.5 [id number]-min oral pwd pkt (Juan F (with collagen)) ascorbic acid (vitamin C) 500 mg 500 mg PO LUNCH #30 tabs 01/04/25 Unknown Rx tablet aspirin 81 mg tablet,delayed 81 mg PO BID dvt prophylaxis #1 TAB 01/04/25 Unknown Rx release cyclobenzaprine 5 mg tablet 5 mg PO TID PRN Spasms #21 tabs 01/04/25 Unknown Rx doxycycline hyclate 100 mg capsule 100 mg PO BID atb post op #60 caps 01/04/25 Unknown Rx ferrous sulfate 325 mg (65 mg 325 mg PO LUNCH #30 tabs 01/04/25 Unknown Rx iron) tablet (FeroSul) gabapentin 600 mg tablet 600 mg PO TID #90 tabs 01/04/25 Unknown Rx multivitamin 1 tab PO LUNCH #1 TAB 01/04/25 Unknown Rx ondansetron 4 mg disintegrating 4 mg PO Q8H PRN PRN nausea #10 tabs 01/04/25 Unknown Rx tablet oxycodone 5 mg tablet 5 mg PO Q6H PRN PRN Pain Score 01/04/25 Unknown Rx pain 4-10 1 week #28 tabs polyethylene glycol 3350 17 17 g PO DAILY PRN PRN constipation 01/04/25 Unknown Rx gram/dose oral powder (Miralax) #1 g sennosides 8.6 mg-docusate sodium 2 tab PO BID #120 tabs 01/04/25 Unknown Rx 50 mg tablet (Stimulant Laxative Plus) trazodone 150 mg tablet 150 mg PO QHS #30 tabs 01/05/25 Unknown Rx Allergy/AdvReac Type Severity Reaction Status Date / Time No Known Allergies Allergy Verified 04/18/25 16:03 Family History Sister Asthma Diabetes Hypertension High cholesterol Osteoporosis Mother Diabetes High cholesterol Hypertension Osteoporosis Thyroid disorder Skin cancer Brother Diabetes Hypertension High cholesterol Father Heart disease Hypertension CVA (cerebral vascular accident) Surgical History History of total knee arthroplasty History of hysterectomy History of lumpectomy of right breast History of tubal ligation History of gastric bypass History of esophagogastroduodenoscopy (EGD) (2016) History of laparoscopic cholecystectomy Social History household members: spouse housing: house number of children: 4 Smoking Status: Never smoker alcohol intake: never substance use type: does not use EXAM Physical Exam Const Vital Signs: 04/18/25 16:03 04/18/25 17:59 Temperature 98.3 F 97.9 F Temperature Source Oral Pulse Rate 111 H 85 Respiratory Rate 16 16 Blood Pressure 101/85 H 115/71 Blood Pressure Mean 90 85 Pulse Ox 100 100 Oxygen Delivery Method Room Air MDM MDM MDM Narrative Medical decision making narrative: HISTORY OF PRESENT ILLNESS: Chief complaint: abnormal labs 64 F here GERD, hyperlipidemia, B12 deficiency, TIA, type 2 diabetes, chronic anemia here with concern for abnormal kidney function. They note she obtained a BMP earlier today which showed her creatinine being elevated. She was told to come to the emergency department for more extensive testing. She denies any symptoms. Denies any vomiting or diarrhea. Denies any fever. Denies any cough. She denies shortness of breath. She does note some leg swelling which is improved from baseline. She notes she is urinating just fine. No trouble with urinary retention decreased urination or burning or frequency or urgency. Denies abdominal pain. REVIEW OF SYSTEMS: Pertinent positives: None Pertinent negatives: As per HPI PHYSICAL EXAM: Nursing triage notes reviewed, Vital signs reviewed Constitutional: please see mdm HENT: MMM Eyes: Pupils equal round and reactive to light, Extraocular muscles intact Neck: No stridor, no JVD, full neck ROM Lungs: Clear to auscultation, No wheezing or rales. No increased work of breathing, no conversational dyspnea, no accessory muscle use, no nasal flaring. No respiratory distress noted Heart: Regular rate and rhythm, No murmurs, No rubs and No gallops, 2+ distal pulses (radial, femoral, posterior tibial) in all extremities Abdomen: Soft, there is no tenderness, rigidity, rebound or guarding, no obvious peritoneal signs, no palpable pulsatile abdominal masses, no auscultated abdominal bruit : No CVAT Extremities: 1-2+ pitting edema bilateral lower extremities Neuro: No new focal neurological deficits, cranial nerves II through XII intact, 5/5 strength in all present extremities. Intact sensation to light touch in all present extremities, 2+ reflexes bilateral patella tendons. Skin: No rash or lesions noted, sallow appearance of the skin MEDICAL DECISION MAKING: Chief Complaint: please see HPI External records reviewed: Reviewed prior laboratory results. Reviewed prior kidney function which showed a creatinine 1.16 and GFR 52 BUN was 16 this was from 03/12/2025 Per the patient's MyChart/online medical record her creatinine today was 1.7 and BUN was 27. Factors affecting care: as per HPI Social determinants of health: none History obtained from others: none Consults: Internal medicine (Dr. Medrano) [facility] Narrative: The patient was initially borderline hypotensive with a blood pressure 101/85, pulse of 111, afebrile and nontoxic-appearing. Exam with with lower extremity edema. I considered the following differential diagnosis: Acute renal failure, electrolyte disturbance, arrhythmia, heart failure I obtained a broad lab and imaging to further determine if the patient was suffering from a life-threatening etiology. Initially resuscitated patient with 500 cc bolus ALL IMAGES (IF OBTAINED) HAVE BEEN PERSONALLY REVIEWED AND INTERPRETED BY MYSELF. EKG with normal sinus rhythm rate 97, normal axis, no intervals, no STEMI CBC without significant leukocytosis to suggest systemic inflammation, noted baseline anemia, no thrombocytopenia BMP without significant electrolyte maladies, noted metabolic acidosis with a bicarb of 16.8 likely secondary to uremia. Noted creatinine 1.97 grossly/markedly elevated from prior Urinalysis shows no evidence of urinary inflammation suggestive of UTI I have personally reviewed the patient's chest x-ray. Chest x-ray is unremarkable for pulmonary edema, pneumothorax, pneumonia or focal cardiopulmonary abnormality. Given continued uptrend of creatinine and concern for progression to renal failure ESRD will admit the patient for further evaluation and treatment and nephrology consultation. Discussed with hospitalist agreed admit the patient to [facility]. Repeat vital signs showed improvement with a blood pressure 115/71 and heart rate of 85 The patient and/or family, caregivers express understanding. The patient and/or family, caregivers agrees with the plan. Shared decision making: I will have a discussion with the patient and or visitors regarding risk/benefits of further testing or admission. They will be made aware of of the risk/benefits inherent in this decision they will be given the opportunity to voice understanding. Total critical care time today provided was at least 0 minutes. This excludes separately billable procedures. Critical care time (if documented) is secondary to the patient having high probability of clinically significant/life threatening deterioration in the patient's condition which required my urgent intervention. Impression: 1. Abnormal labs 2. MIGDALIA 3. Metabolic acidosis Dispo: Admit to [facility] This note was generated with [employer] dictation software. It may contain incorrect words, spelling, and punctuation that were not noted in review of the chart prior to signing. Lab Data Labs: Laboratory Results - last 24 hr 04/18/25 04/18/25 16:20 16:44 WBC 4.8 RBC 2.93 L Hgb 8.9 L Hct 27.9 L MCV 95.2 MCH 30.4 MCHC 31.9 L RDW Std Deviation 57.9 H RDW Coeff of Lobo 16.3 H Plt Count 244 MPV 10.0 Immature Gran % (Auto) 0.200 Neut % (Auto) 69.6 Lymph % (Auto) 20.0 [place] % (Auto) 6.5 Eos % (Auto) 2.9 Baso % (Auto) 0.8 Absolute Neuts (auto) 3.3 Absolute Lymphs (auto) 0.95 Nucleated RBC % 0 Sodium 143 Potassium 3.4 Chloride 111 H Carbon Dioxide 16.8 L Anion Gap 15 BUN 29 H Creatinine 1.97 H Estim Creat Clear Calc 21.81 L Est GFR (MDRD) Non-Af 28 L BUN/Creatinine Ratio 14.7 Glucose 111 H Calcium 8.6 Urine Color Yellow Urine Clarity Clear Urine pH 5.0 Ur Specific [place] 1.020 Urine Protein 30 H Urine Glucose (UA) Normal Urine Ketones Negative Urine Occult Blood Negative Urine Nitrite Negative Urine Bilirubin Negative Urine Urobilinogen Normal Ur Leukocyte Esterase Negative Urine RBC 0-5 SEEN Urine WBC 0-5 SEEN Ur Squamous Epith Cells 0-5 SEEN Urine Bacteria 0 SEEN Urine Mucus 0 SEEN Radiography Diagnostic Testing: Clinical Impression(s) from Imaging Studies Chest X-Ray 04/18/25 16:54 IMPRESSION: No evidence of acute cardiopulmonary disease. [id number] Triage Chief Complaint: Abn Labs ED Provider: Darren Blanca Dx/Rx/DC Orders Prescriptions: No Action levothyroxine 50 MCG tablet 50 mcg PO DAILY Patient Comments: THYROID pantoprazole 40 MG tablet 40 mg PO BID Patient Comments: ACID REFLUX latanoprost 1 DROP bottle 1 drp EACH EYE QHS Patient Comments: EYE DROPS rizatriptan 10 MG tablet,disintegrating 10 mg PO DAILY PRN PRN (Reason: headache) Patient Comments: can repeat 1 time in 2 hours PRN, no more than 2 doses in a 24 hour period cholecalciferol (vitamin D3) 1,000 unit tablet 50,000 unit PO FR Patient Comments: SUPPLEMENT metformin 500 mg Tablet 500 mg PO DAILY venlafaxine 75 mg Tablet 75 mg PO DAILY@1700 lorazepam 0.5 mg Tablet 0.5 mg PO BID PRN (Reason: Anxiety) folic acid 1 mg Tablet 1 mg PO DAILY topiramate 100 mg Tablet 100 mg PO DAILY dorzolamide (PF) 2 % Drops 1 drp EACH EYE BID atorvastatin 20 mg tablet 20 mg PO QHS venlafaxine 75 mg tablet 112.5 mg PO BID@0800,1200 topiramate [Topamax] 100 mg tablet 300 mg PO QHS gabapentin 600 mg Tablet 600 mg PO TID Qty: 90 0RF acetaminophen 500 mg Tablet 1,000 mg PO Q8 Qty: 90 0RF ascorbic acid (vitamin C) 500 mg Tablet 500 mg PO LUNCH Qty: 30 0RF ferrous sulfate [FeroSul] 325 mg (65 mg iron) Tablet 325 mg PO LUNCH Qty: 30 0RF Juan F (with collagen) 7-7-1.5 gram Powder In Packet 1 packet PO BIDCM Qty: 30 0RF multivitamin Tablet 1 tab PO LUNCH Qty: 1 0RF sennosides-docusate sodium [Stimulant Laxative Plus] 8.6-50 mg Tablet 2 tab PO BID Qty: 120 0RF ondansetron 4 mg Tablet,Disintegrating 4 mg PO Q8H PRN PRN (Reason: nausea) Qty: 10 0RF oxycodone 5 mg Tablet 5 mg PO Q6H PRN PRN (Reason: Pain Score pain 4-10) 7 Days Qty: 28 0RF doxycycline hyclate 100 mg capsule 100 mg PO BID Qty: 60 0RF aspirin 81 mg tablet,delayed release (DR/EC) 81 mg PO BID Qty: 1 0RF Rx Instructions: Take this until the orthopedic surgeon tells you to stop. Usually people take it for 1 month after a knee replacement. polyethylene glycol 3350 [Miralax] 17 gram/dose powder 17 g PO DAILY PRN PRN (Reason: constipation) Qty: 1 0RF Rx Instructions: If you find you are getting constipated again start taking this once a day. cyclobenzaprine 5 mg Tablet 5 mg PO TID PRN (Reason: Spasms) Qty: 21 0RF trazodone 150 mg tablet 150 mg PO QHS Qty: 30 0RF Primary Care Provider: Angelo Ruggiero Referrals: Rashmi Salinas [facility], DO [[facility]] - Print Language: French
--- NOTE | 2025-04-18 16:22 | EKG12_ITS ---
Test Reason : ARRYTH Blood Pressure : */* mmHG Vent. Rate : 97 BPM Atrial Rate : 97 BPM P-R Int : 134 ms QRS Dur : 76 ms QT Int : 352 ms P-R-T Axes : 29 6 24 degrees QTcB Int : 447 ms Normal sinus rhythm Normal ECG Confirmed by Wilian Rodríguez ([id number]), editor book HAN FRENCH ([id number]) on 04/20/2025 6:44:25 AM Referred By: Confirmed By: Wilian Rodríguez
[2025-04-18] MEDS: 0.9% Normal Saline (500mL Bag) 500 ML 999 ML IV (16:27)
[2025-04-18 16:37] LABS: Hematocrit 27.9 % (37-47); Hemoglobin 8.9 g/dL (12.0-15.0); Immature Granulocytes Count 0.010 X10^3/uL (0.0-0.0); Mean Corp Hgb Conc 31.9 g/dL (32-36); Mean Corpuscular Volume 95.2 fL (81-99); Mean Platelet Vol. 10.0 fl (6.2-12.0); NRBC Flagged by Analyzer 0 % (0-5); Platelet Count 244 K/mm3 (150-450); RBC Distribution Width CV 16.3 % (11.6-14.6); RBC Distribution Width SD 57.9 fl (35.1-43.9); Red Blood Count 2.93 M/mm3 (4.2-5.4); White Blood Count 4.8 K/mm3 (4.4-11.0)
[2025-04-18 16:47] LABS: Mucous, Urine 0 SEEN /hpf (<or=2+)
--- NOTE | 2025-04-18 16:54 | RAD_ITS ---
PROCEDURE: CHEST 1 VIEW (PORTABLE) 04/18/2025 REASON FOR EXAM: SOB TECHNIQUE: Frontal view of the chest. COMPARISON: 03/12/2025 FINDINGS: Lungs/Pleura: Clear. No pneumothorax or sizable pleural effusion. Heart/Mediastinum: Normal in size. No vascular congestion. Bones/Soft tissues: Unremarkable. Multiple epigastric surgical clips. RAD/Chest 1 View (Portable) IMPRESSION: No evidence of acute cardiopulmonary disease. Reading Location: [id number]
[2025-04-18 16:57] LABS: Anion Gap 15 (5-15); BUN 29 mg/dL (4-19); BUN/Creat Ratio 14.7 RATIO (10-20); Calcium,Total 8.6 mg/dL (7.6-11.0); Carbon Dioxide 16.8 mmol/L (21.0-32.0); Chloride 111 mmol/L (98-108); Estimated Creatinine Clearance 21.81 ml/min (50-250); Glucose 111 mg/dL (70-99); Potassium 3.4 mmol/L (3.3-5.1)
[2025-04-18 17:18] LABS: Color, Urine Yellow (Yellow); Glucose, Dipstick Normal (Normal); Ketone-Dipstick Negative (Negative); Leukocyte Esterase-Dipstick Negative /ul (Negative); Nitrite-Dipstick Negative (Negative); Occult Blood-Urine Negative /ul (Negative); Protein-Dipstick 30 mg/dl (Negative); Specific Gravity, Urine 1.020 (1.002-1.030); Urine Bilirubin Dipstick Negative (Negative)
[2025-04-18 17:41] LABS: Red Blood Cells-Urine 0-5 SEEN /hpf (0-5); Squamous Epithelial Cells - UA 0-5 SEEN /hpf (5-10)
[2025-04-18 17:59] VITALS: BP 115/71; PULSE 85; RESP 16; TEMP 36.6; O2SAT 100
[2025-04-18 18:03] VITALS: BP 123/79
--- NOTE | 2025-04-18 18:38 | HP.PCM.HOS_ITS ---
HPI - General General Date of Admission: 04/18/25 Date of Service: 04/18/25 Chief Complaint: Abnormal left HPI Narrative TOMAS BONILLA, is a 64-year-old female with history of hypothyroidism, GERD, anxiety, diabetes, migraines, depression presented to [facility] ED 05/15/2025 due to elevated creatinine on a BMP earlier today and was advised to come to the ED. Patient with no cough or shortness of breath, has some leg swelling that is improved from baseline, no urinary complaints. In the ED temp 98.3, heart rate 111 and blood pressure 101/85, respiratory rate 16 and pulse ox 100% on room air. CBC with a white count of 4.8, hemoglobin 8.9, BMP did reveal a bicarb of 16.8 with a gap within her normal assay range 15, BUN of 29 and a creatinine of 1.97 with a glucose of 111, last labs in our system with a creatinine of 1.16 on 02/20/2025. UA not suggestive of infection, chest x-ray no acute process. Given patient's increased creatinine with no notable cause hospitalist contacted for admission. Patient evaluated at bedside. She reports that she got a knee replaced several months ago and lost 40 pounds and was hallucinating and was not herself but 6 7 weeks ago started improving, she is eating again, now feels back to her baseline mental status, has also had some swelling in her lower extremity since that time which has not really changed acutely. Denies shortness of breath or cough, no chest pain, no fevers or chills, no rashes, bleeding, bruising reported. Patient does get frequent headaches but that is chronic, no other new or acute complaints. [facility] Medical History Vision loss, bilateral Traumatic brain injury GERD (gastroesophageal reflux disease) Pure hypercholesterolemia Vitamin D deficiency B12 deficiency History of iron deficiency anemia Seizure disorder Diabetes mellitus, type 2 TIA (transient ischemic attack) Depression Essential hypertension Branch retinal vein occlusion of both eyes Acute blood loss anemia Unspecified intestinal obstruction Osteoporosis Insomnia Arthritis Glaucoma Chronic anemia Peptic ulcer disease Anxiety Hypothyroidism Migraine Home Medications ?Medication ?Instructions ?Recorded ?Last Taken ?Type levothyroxine 50 mcg tablet 50 mcg PO DAILY thyroid 04/17/25 05:00 History pantoprazole 40 mg tablet,delayed 40 mg PO BID stomach 07/24/13 04/18/25 05:00 History release latanoprost 0.005 % eye drops 1 drp EACH EYE QHS eye h ealth 12/16/15 04/18/25 19:00 History rizatriptan 10 mg disintegrating 10 mg PO DAILY PRN MS N headache 12/16/15 04/11/25 History tablet cholecalciferol (vitamin D3) 25 50,000 unit PO FR supp lement 12/30/17 08/23/21 History mcg (1,000 unit) tablet dorzolamide (PF) 2 % (PF) eye drops 1 drp EACH EYE BID eye health 08/23/21 04/18/25 05:00 History folic acid 1 mg tablet 1 mg PO DAILY supplement 04/0604/18/25 05:00 History lorazepam 0.5 mg tablet 0.5 mg PO Q8H PRN Anxiety 04/18/25 19:00 History metformin 500 mg tablet 500 mg PO DAILY BS 08/23/21 04/18/25 05:00 History topiramate 100 mg tablet 100 mg PO DAILY migraine 04/0604/18/25 05:00 History venlafaxine 75 mg tablet 75 mg PO DAILY@1700 mood 04/0608/23/21 History atorvastatin 20 mg tablet 20 mg PO QHS cholesterol 12/06 Unknown History topiramate 100 mg tablet (Topamax) 300 mg PO QHS migra ine 12/25/24 04/17/25 19:00 History venlafaxine 75 mg tablet 112.5 mg PO BID@0800,1200 mo od 12/25/24 Unknown History ascorbic acid (vitamin C) 500 mg 500 mg PO LUNCH vitam in #30 tabs 01/04/25 04/17/25 12:00 Rx tablet 500 mg aspirin 81 mg tablet,delayed 81 mg PO BID dvt prophyla xis #1 TAB 01/04/25 04/17/25 19:00 Rx release 81 mg cyclobenzaprine 5 mg tablet 5 mg PO TID PRN Spasms #21 tabs 01/04/25 04/18/25 06:00 Rx 5 mg gabapentin 600 mg tablet 600 mg PO TID nerve pain #90 tabs 01/04/25 04/18/25 05:00 Rx ondansetron 4 mg disintegrating 4 mg PO Q8H PRN PRN na usea #10 tabs 01/04/25 Unknown Rx tablet oxycodone 5 mg tablet 5 mg PO Q6H PRN PRN Pain Sco re 01/04/25 Unknown Rx pain 4-10 1 week #28 tabs polyethylene glycol 3350 17 17 g PO DAILY PRN PRN cons tipation 01/04/25 Unknown Rx gram/dose oral powder (Miralax) #1 g sennosides 8.6 mg-docusate sodium 2 tab PO BID laxativ e #120 tabs 01/04/25 Unknown Rx 50 mg tablet (Stimulant Laxative Plus) trazodone 150 mg tablet 150 mg PO QHS sleep #30 tabs 01/05/25 04/17/25 19:00 Rx acetaminophen 500 mg tablet 1,000 mg PO PRN pain 04/18 Unknown History brexpiprazole 1 mg tablet (Rexulti) 1 mg PO DAILY depr ession 04/18/25 04/17/25 19:00 History brimonidine 0.2 % eye drops 1 drp ophthalmic (eye) Q12 .TCU 04/18/25 04/18/25 05:00 History glaucoma ferrous sulfate 325 mg (65 mg 325 mg PO QHS supplement 04/18/25 04/17/25 07:00 History iron) tablet (FeroSul) multivitamin 1 tab PO DAILY supplement 04/18/25 05:00 History Allergy/AdvReac Type Severity Reaction Status Date / Time No Known Allergies Allergy Verified 04/18/25 16:03 Family History Sister Asthma Diabetes
--- NOTE | 2025-04-18 18:38 | PCM.HP.STD ---
HPI - General General Date of Admission: 04/18/25 Date of Service: 04/18/25 Chief Complaint: Abnormal left HPI Narrative TOMAS BONILLA, is a 64-year-old female with history of hypothyroidism, GERD, anxiety, diabetes, migraines, depression presented to [facility] ED 05/15/2025 due to elevated creatinine on a BMP earlier today and was advised to come to the ED. Patient with no cough or shortness of breath, has some leg swelling that is improved from baseline, no urinary complaints. In the ED temp 98.3, heart rate 111 and blood pressure 101/85, respiratory rate 16 and pulse ox 100% on room air. CBC with a white count of 4.8, hemoglobin 8.9, BMP did reveal a bicarb of 16.8 with a gap within her normal assay range 15, BUN of 29 and a creatinine of 1.97 with a glucose of 111, last labs in our system with a creatinine of 1.16 on 02/20/2025. UA not suggestive of infection, chest x-ray no acute process. Given patient's increased creatinine with no notable cause hospitalist contacted for admission. Patient evaluated at bedside. She reports that she got a knee replaced several months ago and lost 40 pounds and was hallucinating and was not herself but 6 7 weeks ago started improving, she is eating again, now feels back to her baseline mental status, has also had some swelling in her lower extremity since that time which has not really changed acutely. Denies shortness of breath or cough, no chest pain, no fevers or chills, no rashes, bleeding, bruising reported. Patient does get frequent headaches but that is chronic, no other new or acute complaints. [facility] Medical History Vision loss, bilateral Traumatic brain injury GERD (gastroesophageal reflux disease) Pure hypercholesterolemia Vitamin D deficiency B12 deficiency History of iron deficiency anemia Seizure disorder Diabetes mellitus, type 2 TIA (transient ischemic attack) Depression Essential hypertension Branch retinal vein occlusion of both eyes Acute blood loss anemia Unspecified intestinal obstruction Osteoporosis Insomnia Arthritis Glaucoma Chronic anemia Peptic ulcer disease Anxiety Hypothyroidism Migraine Home Medications ?Medication ?Instructions ?Recorded ?Last Taken ?Type levothyroxine 50 mcg tablet 50 mcg PO DAILY thyroid 07/24/13 04/17/25 05:00 History pantoprazole 40 mg tablet,delayed 40 mg PO BID stomach 07/24/13 04/18/25 05:00 History release latanoprost 0.005 % eye drops 1 drp EACH EYE QHS eye health 12/16/15 04/18/25 19:00 History rizatriptan 10 mg disintegrating 10 mg PO DAILY PRN PRN headache 12/16/15 04/11/25 History tablet cholecalciferol (vitamin D3) 25 50,000 unit PO FR supplement 12/30/17 08/23/21 History mcg (1,000 unit) tablet dorzolamide (PF) 2 % (PF) eye drops 1 drp EACH EYE BID eye health 08/23/21 04/18/25 05:00 History folic acid 1 mg tablet 1 mg PO DAILY supplement 08/23/21 04/18/25 05:00 History lorazepam 0.5 mg tablet 0.5 mg PO Q8H PRN Anxiety 08/23/21 04/18/25 19:00 History metformin 500 mg tablet 500 mg PO DAILY BS 08/23/21 04/18/25 05:00 History topiramate 100 mg tablet 100 mg PO DAILY migraine 08/23/21 04/18/25 05:00 History venlafaxine 75 mg tablet 75 mg PO DAILY@1700 mood 08/23/21 08/23/21 History atorvastatin 20 mg tablet 20 mg PO QHS cholesterol 04/19/23 Unknown History topiramate 100 mg tablet (Topamax) 300 mg PO QHS migraine 12/25/24 04/17/25 19:00 History venlafaxine 75 mg tablet 112.5 mg PO BID@0800,1200 mood 12/25/24 Unknown History ascorbic acid (vitamin C) 500 mg 500 mg PO LUNCH vitamin #30 tabs 01/04/25 04/17/25 12:00 Rx tablet 500 mg aspirin 81 mg tablet,delayed 81 mg PO BID dvt prophylaxis #1 TAB 01/04/25 04/17/25 19:00 Rx release 81 mg cyclobenzaprine 5 mg tablet 5 mg PO TID PRN Spasms #21 tabs 01/04/25 04/18/25 06:00 Rx 5 mg gabapentin 600 mg tablet 600 mg PO TID nerve pain #90 tabs 01/04/25 04/18/25 05:00 Rx ondansetron 4 mg disintegrating 4 mg PO Q8H PRN PRN nausea #10 tabs 01/04/25 Unknown Rx tablet oxycodone 5 mg tablet 5 mg PO Q6H PRN PRN Pain Score 01/04/25 Unknown Rx pain 4-10 1 week #28 tabs polyethylene glycol 3350 17 17 g PO DAILY PRN PRN constipation 01/04/25 Unknown Rx gram/dose oral powder (Miralax) #1 g sennosides 8.6 mg-docusate sodium 2 tab PO BID laxative #120 tabs 01/04/25 Unknown Rx 50 mg tablet (Stimulant Laxative Plus) trazodone 150 mg tablet 150 mg PO QHS sleep #30 tabs 01/05/25 04/17/25 19:00 Rx acetaminophen 500 mg tablet 1,000 mg PO PRN pain 04/18/25 Unknown History brexpiprazole 1 mg tablet (Rexulti) 1 mg PO DAILY depression 04/18/25 04/17/25 19:00 History brimonidine 0.2 % eye drops 1 drp ophthalmic (eye) Q12.TCU 04/18/25 04/18/25 05:00 History glaucoma ferrous sulfate 325 mg (65 mg 325 mg PO QHS supplement 04/18/25 04/17/25 07:00 History iron) tablet (FeroSul) multivitamin 1 tab PO DAILY supplement 04/18/25 04/18/25 05:00 History Allergy/AdvReac Type Severity Reaction Status Date / Time No Known Allergies Allergy Verified 04/18/25 16:03 Family History Sister Asthma Diabetes Hypertension High cholesterol Osteoporosis Mother Diabetes High cholesterol Hypertension Osteoporosis Thyroid disorder Skin cancer Brother Diabetes Hypertension High cholesterol Father Heart disease Hypertension CVA (cerebral vascular accident) Surgical History History of total knee arthroplasty History of hysterectomy History of lumpectomy of right breast History of tubal ligation History of gastric bypass History of esophagogastroduodenoscopy (EGD) (2016) History of laparoscopic cholecystectomy Social History household members: spouse housing: house number of children: 4 Smoking Status: Never smoker alcohol intake: never substance use type: does not use ROS ROS Narrative General: Denies fever/chills HENT: Denies headache, denies stuffy nose, denies sore throat EYES: Denies changes in vision Resp: Denies cough, denies shortness of breath Cardiac: Denies chest pain GI: Denies abdominal pain, denies changes in bowel, denies nausea/vomiting : Denies changes in urination Extremity: Has some swelling in lower extremities without any acute change MSK: Denies weakness Neuro: Denies any numbness/tingling Heme: Denies any bleeding or bruising Skin: Denies rashes Psychiatric: No complaints voiced Vital Signs Vital Signs Vital Signs: 04/18/25 16:03 04/18/25 17:59 04/18/25 18:03 Temperature 98.3 F 97.9 F Temperature Source Oral Pulse Rate 111 H 85 Respiratory Rate 16 16 Blood Pressure 101/85 H 115/71 123/79 H Blood Pressure Mean 90 85 93 Pulse Ox 100 100 Oxygen Delivery Method Room Air Weight Weight: 48.534 kg Body Mass Index (BMI) 19.5 Physical Exam Narrative General: Alert, oriented, no apparent distress HEENT: Atraumatic, normocephalic Eyes: Anicteric, normal conjunctiva, extraocular movements grossly intact Neck: Supple Respiratory: Clear to auscultation bilaterally, normal respiratory effort Cardiovascular: Regular rate and rhythm GI: Soft, nontender, nondistended Extremities: Some lower extremity edema with minor pitting Musculoskeletal: Moving all extremities Neuro: No overt focal neurological deficits Skin: No rashes appreciated Psych: Cooperative Results Lab / Micro Data 04/18/25 16:20 04/18/25 16:20 Labs: Laboratory Results - last 24 hr 04/18/25 16:20: WBC 4.8, RBC 2.93 L, Hgb 8.9 L, Hct 27.9 L, MCV 95.2, MCH 30.4, MCHC 31.9 L, RDW Std Deviation 57.9 H, RDW Coeff of Lobo 16.3 H, Plt Count 244, MPV 10.0, Immature Gran % (Auto) 0.200, Neut % (Auto) 69.6, Lymph % (Auto) 20.0, [place] % (Auto) 6.5, Eos % (Auto) 2.9, Baso % (Auto) 0.8, Absolute Neuts (auto) 3.3, Absolute Lymphs (auto) 0.95, Nucleated RBC % 0, Sodium 143, Potassium 3.4, Chloride 111 H, Carbon Dioxide 16.8 L, Anion Gap 15, BUN 29 H, Creatinine 1.97 H, Estim Creat Clear Calc 21.81 L, Est GFR (MDRD) Non-Af 28 L, BUN/Creatinine Ratio 14.7, Glucose 111 H, Calcium 8.6 04/18/25 16:44: Urine Color Yellow, Urine Clarity Clear, Urine pH 5.0, Ur Specific [place] 1.020, Urine Protein 30 H, Urine Glucose (UA) Normal, Urine Ketones Negative, Urine Occult Blood Negative, Urine Nitrite Negative, Urine Bilirubin Negative, Urine Urobilinogen Normal, Ur Leukocyte Esterase Negative, Urine RBC 0-5 SEEN, Urine WBC 0-5 SEEN, Ur Squamous Epith Cells 0-5 SEEN, Urine Bacteria 0 SEEN, Urine Mucus 0 SEEN Imaging Radiology Impression Chest X-Ray 04/18/25 16:54 IMPRESSION: No evidence of acute cardiopulmonary disease. Reading [id number] Assessment & Plan Assessment/Plan (1) MIGDALIA (acute kidney injury): PLAN: Plan #MIGDALIA -Unclear etiology -UA fairly benign -Gentle IVF with limited volume while awaiting further workup -No infectious symptoms or other focal complaints aside from some chronic leg swelling -Denies any new medications, is not taking any new supplements or [id number] medicines like ibuprofen, only takes Excedrin as needed for migraines -Will check kidney and bladder ultrasound -Avoid nephro toxic agents -Will check urine studies -Is and Os -Will consult nephrology given uncertain etiology and significant worsening (was 1.7 earlier today and repeat 1.97 several hours later) - May need more in-depth workup if the above negative oriented family #Hypothyroidism -Continue Synthroid #GERD -Continue PPI #Type 2 diabetes mellitus -Glucose checks and sliding scale insulin #Depression/anxiety -Continue home medications #Migraines -Continue home meds once med list verified -Of note patient is on gabapentin however given her creatinine clearance we will decrease to 300 mg 3 times daily - If kidney function worsens or does not improve may need to consider adjustment on Topamax as well #DVT ppx: SCDs, patient still listed as being on aspirin twice daily for DVT prophylaxis post knee replacement though that was remote, will need to clarify but it is reported as patient taking Carolina Medrano MD Charges/Coding Visit Charges Inpatient E&M: 88968 Init Hosp L2
[2025-04-18 19:04] VITALS: BP 135/91; PULSE 90; RESP 16; TEMP 36.7; O2SAT 100
[2025-04-18 19:07] VITALS: BMI 22.2
--- NOTE | 2025-04-18 20:03 | US_ITS ---
PROCEDURE: KIDNEY AND BLADDER 04/18/2025 REASON FOR EXAM: RENAL FAILURE TECHNIQUE: Procedure Code: USKI Modality: US Procedure: KIDNEY AND BLADDER COMPARISON: none FINDINGS: Right kidney measures 9.7 Cm and left kidney measures 9.5 Cm. Normal echotexture of bilateral kidneys. No hydronephrosis. 3mm and 4mm nonobstructive stones within the right kidney. Urinary bladder is unremarkable. US/Kidney and Bladder IMPRESSION: No hydronephrosis. 3 mm and 4 mm nonobstructive stones within the right kidney. Reading Location: [facility]
[2025-04-18] MEDS: Latanoprost 0.005% 1 Bottle 1 DRP EACH EYE (21:55)
[2025-04-18] MEDS: BRIMONIDINE 0.2% 5ML BOTTLE 1 DRP OPHTHALMIC (21:55)
[2025-04-18] MEDS: Dorzolamide 2% 10ml Bottle 1 DRP EACH EYE (21:55)
[2025-04-18] MEDS: 0.9% Saline Lock 10 ML Syringe IV (21:57)
[2025-04-18] MEDS: 0.9% Normal Saline (1000mL) 1,000 ML 50 ML IV (21:57)
[2025-04-18 22:17] LABS: Creatinine, Urine (random) 57.40 mg/dL (28.00-217.00); Microalbumin,Random Urine 20.8 mg/L (<20 mg/L); Urea Nitrogen, Urine 303 mg/dL (NO RANGE EST.)
[2025-04-18 22:36] LABS: Osmolality, Urine 400 mOsm/KG
[2025-04-19 02:45] VITALS: BP 97/66; PULSE 93; RESP 18; TEMP 36.6; O2SAT 98
[2025-04-19 06:48] LABS: Hematocrit 25.1 % (37-47); Hemoglobin 8.3 g/dL (12.0-15.0); Immature Granulocytes Count 0.010 X10^3/uL (0.0-0.0); Mean Corp Hgb Conc 33.1 g/dL (32-36); Mean Corpuscular Volume 94.0 fL (81-99); Mean Platelet Vol. 10.0 fl (6.2-12.0); NRBC Flagged by Analyzer 0 % (0-5); Platelet Count 216 K/mm3 (150-450); RBC Distribution Width CV 16.2 % (11.6-14.6); RBC Distribution Width SD 56.6 fl (35.1-43.9); Red Blood Count 2.67 M/mm3 (4.2-5.4); White Blood Count 3.1 K/mm3 (4.4-11.0)
--- NOTE | 2025-04-19 06:54 | PCM.PN.HOSP ---
Reason for Visit Chief Complaint: Abnormal left Subjective Subjective Patient is a 64-year-old lady sent to the ED for worsening labs was found to have acute kidney injury Objective Data Objective Data Vital Signs: Vital Signs Temp Pulse Resp BP Pulse Ox O2 Del Method 97.9 F 93 18 97/66 98 Room Air 04/19/25 02:45 04/19/25 02:45 04/19/25 02:45 04/19/25 02:45 04/19/25 02:45 04/19/25 02:55 Oxygen Delivery Method Room Air Weight: 54.9 kg Body Mass Index (BMI) 22.2 Intake & Output: Intake and Output for Last 24 Hours 04/17/25 04/18/25 04/19/25 23:59 23:59 23:59 Intake Total 500 / 500 400 / 400 Output Total 1100 / 1100 Balance 500 / 200 -700 / -700 Lab / Micro Data 04/19/25 06:26 04/19/25 06:26 Labs: Laboratory Results - last 24 hr 04/18/25 16:20: WBC 4.8, RBC 2.93 L, Hgb 8.9 L, Hct 27.9 L, MCV 95.2, MCH 30.4, MCHC 31.9 L, RDW Std Deviation 57.9 H, RDW Coeff of Lobo 16.3 H, Plt Count 244, MPV 10.0, Immature Gran % (Auto) 0.200, Neut % (Auto) 69.6, Lymph % (Auto) 20.0, [place] % (Auto) 6.5, Eos % (Auto) 2.9, Baso % (Auto) 0.8, Absolute Neuts (auto) 3.3, Absolute Lymphs (auto) 0.95, Nucleated RBC % 0, Sodium 143, Potassium 3.4, Chloride 111 H, Carbon Dioxide 16.8 L, Anion Gap 15, BUN 29 H, Creatinine 1.97 H, Estim Creat Clear Calc 21.81 L, Est GFR (MDRD) Non-Af 28 L, BUN/Creatinine Ratio 14.7, Glucose 111 H, Calcium 8.6 04/18/25 16:44: Urine Color Yellow, Urine Clarity Clear, Urine pH 5.0, Ur Specific [place] 1.020, Urine Protein 30 H, Urine Glucose (UA) Normal, Urine Ketones Negative, Urine Occult Blood Negative, Urine Nitrite Negative, Urine Bilirubin Negative, Urine Urobilinogen Normal, Ur Leukocyte Esterase Negative, Urine RBC 0-5 SEEN, Urine WBC 0-5 SEEN, Ur Squamous Epith Cells 0-5 SEEN, Urine Bacteria 0 SEEN, Urine Mucus 0 SEEN 04/18/25 21:00: Urine Osmolality 400, Ur Random Microalbumin 20.8, Ur Random Sodium 104, Urine Creatinine 57.40, Microalb/Creat Ratio 36.2 H, Urine Potassium 20.4, Urine Chloride 107, Urine Urea Nitrogen 303 04/19/25 06:26: WBC 3.1 L, RBC 2.67 L, Hgb 8.3 L, Hct 25.1 L, MCV 94.0, MCH 31.1, MCHC 33.1, RDW Std Deviation 56.6 H, RDW Coeff of Lobo 16.2 H, Plt Count 216, MPV 10.0, Immature Gran % (Auto) 0.300, Neut % (Auto) 49.9, Lymph % (Auto) 35.3, [place] % (Auto) 9.4, Eos % (Auto) 4.5, Baso % (Auto) 0.6, Absolute Neuts (auto) 1.5 L, Absolute Lymphs (auto) 1.09, Nucleated RBC % 0 Radiography Diagnostic Testing: Radiology Impression Chest X-Ray 04/18/25 16:54 IMPRESSION: No evidence of acute cardiopulmonary disease. Reading Location[id number] Renal Ultrasound 04/18/25 20:03 IMPRESSION: No hydronephrosis. 3 mm and 4 mm nonobstructive stones within the right kidney. Reading Location: [facility] Physical Exam Narrative GENERAL: cooperative HEENT: Atraumatic; normocephalic EYES; Anicteric, Normal Conjunctiva NECK; supple, normal thyroid, RESPIRATORY: Diminished to auscultation CARDIOVASCULAR: Regular S1 S2, GI: soft, normoactive bowel sounds, : No Renal angle tenderness; EXTREMITIES: Edema of both lower extremity R>L MUSCULOSKELETAL: no muscle wasting NEURO: Awake; no lateralizing signs. SKIN: No Rash PSYCH; Flat affect Assessment & Plan Assessment/Plan (1) MIGDALIA (acute kidney injury): PLAN: Plan Patient is a 64-year-old lady sent to the ED for worsening labs was found to have acute kidney injury 1. Acute kidney injury ? Patient admitted to regular nursing floor manage with IV fluids as part of her management renal ultrasound was ordered and consult placed to nephrology. Renal ultrasound demonstrated known hydronephrosis patient was found to have 3 and 4 mm nonobstructive stones in the right kidney 2. Anemia ? Secondary to chronic disorder. Ordered iron studies. Monitoring H&H and transfuse if patient becomes symptomatic or hemoglobin falls below 7 3. Bipedal edema ? Ordered 2D echo for EF assessment 4. Hypothyroidism ? Patient is on levothyroxine home dose continued 5. Diabetes mellitus type II -patient's oral hypoglycemics held. Placed on Accu-Cheks a.c. and at bedtime and covered with sliding scale insulin 6. GERD -Continue PPI 7. Depression with anxiety ? continued patient home meds 9. Chronic migraines ? Patient is on Topamax 10. DVT prophylaxis ? Held off chemoprophylaxis given patient's significant anemia Time spent in the patient's overall evaluation,decision-making process, review of diagnostic data, adjustment of management, discussion with other providers, patient and family, nursing nursing and ancillary staff involved in patient's care documentation, 50 Minutes Charges/Coding Visit Charges Inpatient E&M: 80910 [facility] L3
[2025-04-19 07:15] LABS: Anion Gap 11 (5-15); BUN 28 mg/dL (4-19); BUN/Creat Ratio 17.3 RATIO (10-20); Calcium,Total 8.4 mg/dL (7.6-11.0); Carbon Dioxide 18.1 mmol/L (21.0-32.0); Chloride 114 mmol/L (98-108); Estimated Creatinine Clearance 25.81 ml/min (50-250); Glucose 80 mg/dL (70-99); Magnesium 1.8 mg/dL (1.5-2.2); Potassium 3.8 mmol/L (3.3-5.1)
[2025-04-19 08:00] VITALS: BP 95/53; PULSE 87; RESP 15; TEMP 36.5; O2SAT 100
[2025-04-19] MEDS: Dorzolamide 2% 10ml Bottle 1 DRP EACH EYE ×2 (08:13→20:23)
[2025-04-19] MEDS: BRIMONIDINE 0.2% 5ML BOTTLE 1 DRP OPHTHALMIC ×2 (08:15→20:13)
--- NOTE | 2025-04-19 09:38 | ECHOD_ITS ---
Reason For Study Reason For Study: Dyspnea/SOB Procedure This was a 2D Doppler, Color Flow transthoracic echocardiogram. Exam performed portable in patient room. Left Ventricle Normal LV size. The estimated ejection fraction is 55 %. Unable to assess diastolic dysfunction. No regional wall motion abnormalities noted. Right Ventricle Normal RV size. Normal systolic function. Atria The left and right atria are normal. No doppler evidence for ASD. Mitral Valve There is moderate mitral annular calcification. There is no mitral valve stenosis. No mitral valve insufficiency. Tricuspid Valve There is no tricuspid stenosis. Trivial tricuspid valve insufficiency. Unable to estimate RV systolic pressure due to insufficient tricuspid regurgitant envelope. Aortic Valve Trisinus/trileaflet aortic valve. There is no aortic stenosis. Trivial aortic valve insufficiency. Pulmonic Valve There is no pulmonic valvular stenosis. No pulmonic valve insufficiency. Great Vessels Normal sized aortic root. Pericardium/Pleural No pericardial effusion. MMode/2D Measurements & Calculations LVIDd: 4.4 cm IVSd: 1.00 cm Ao root diam: 3.8 cm LVIDs: 2.4 cm LVPWd: 0.92 cm RVDd: 3.1 cm FS: 45.1 % LAV(MOD-bp): 45.7 ml LVAd ap4: 19.9 cm2 SV(MOD-sp4): 30.3 ml LAV(MOD-bp) Indexed: 30.0 ml/m2 LVLd ap4: 6.5 cm SI(MOD-sp4): 19.9 ml/m2 LAV(MOD-sp2): 47.2 ml EDV(MOD-sp4): 51.9 ml LAV(MOD-sp4): 37.5 ml EDV(sp4-el): 51.4 ml LVAs ap4: 11.4 cm2 LVLs ap4: 5.4 cm ESV(MOD-sp4): 21.6 ml ESV(sp4-el): 20.5 ml EF(MOD-sp4): 58.4 % EF(sp4-el): 60.2 % SV(sp4-el): 30.9 ml LA A4 area: 15.4 cm2 LA dimension(2D): 3.5 cm RA A4 area: 13.1 cm2 TAPSE: 1.5 cm Time Measurements MV dec time: 0.21 sec Doppler Measurements & Calculations MV E max joe: 86.5 cm/sec Lat Peak E' Joe: 14.8 cm/sec Med Peak E' Joe: 11.2 cm/sec MV A max joe: 95.0 cm/sec E/E' lat: 5.8 E/E' med: 7.7 MV E/A: 0.91 MV V2 max: 115.5 cm/sec MV P1/2t max joe: 117.0 cm/sec Ao V2 max: 163.8 cm/sec MV max P.3 mmHg MV P1/2t: 78.0 msec Ao max P.7 mmHg MV V2 mean: 65.6 cm/sec Ao V2 mean: 114.4 cm/sec MV mean P.1 mmHg MV dec slope: 439.3 cm/sec2 Ao mean P.0 mmHg MV V2 VTI: 32.2 cm MVA(P1/2t): 2.8 cm2 Ao V2 VTI: 32.8 cm AV (velocity ratio): 0.69 LV V1 max: 113.7 cm/sec PA V2 max: 75.5 cm/sec TR max joe: 248.2 cm/sec LV V1 max P.2 mmHg TR max P.7 mmHg LV V1 mean P.0 mmHg LV V1 mean: 82.9 cm/sec LV V1 VTI: 22.7 cm ECHO/Echo Complete Interpretation Summary The estimated ejection fraction is 55 %. Trivial aortic valve insufficiency. Ordering Physician: Cb^Mp^^^ Performed By: Cortez Herman RCS
--- NOTE | 2025-04-19 09:58 | CASEMGMT ---
MAGDIEL MILLIGAN Assessment: Face to Face with pt for initial transition planning/care coordination assessment. MAGDIEL MILLIGAN introduced self and role at [facility], pt voices understanding and consents to assessment. Pt is A&O x4 and answers all questions appropriately at this time. Pt sitting up in bed with at bedside. Pt agreeable to assessment with present. Care providers, pharmacy, and demographics verified/updated. Admitting Dx: kidney failure Strata Score: 3 PCP:Monik Specialists:MARIAN Palacios, nephro; Rayna, eyes; Tato, neuro; Alvina, ortho; Eulalia, psych Preferred Pharmacy: [facility] [place] [facility] Pres[facility] Benef[facility]: yes LNOK:Charli Centeno, Living Arrangements: Pt lives with in a two story home with 4 steps to enter with a rail. Pt reports she is I in ADL and she and share in IADLs. Pt denies concerns at home. Transportation: Pt does not drive. Pt transports pt. DME:BSC, walker, cane HHC/SNF: Pt has had [facility]lene [facility] in the past and been to [facility] Rehab unit. Pt states no concerns with going home at time of dc. Pt states no further concerns/needs. CM to follow. Advised pt to ask CM if any further questions/concerns/needs arise, voices understanding. Pt Goal: Home Plan: Home Elias VELOZ CM
[2025-04-19 10:48] LABS: Immature Reticulocyte Fraction 13.40 % (3.00-15.90); Platelet Count 232 K/mm3 (150-450); Reticulocyte Count 0.57 % (0.5-1.5)
[2025-04-19 10:52] LABS: Ferritin 193 ng/mL (22-378); Iron 69 ug/dL (50-170); Iron Binding Capacity,Unsat 63 ug/dL (228-428); Vitamin B12 380 pg/mL (180-914)
[2025-04-19 11:00] LABS: Iron Binding Capacity,Total 132 ug/dL (250-450)
--- NOTE | 2025-04-19 11:40 | CHAPLAIN ---
Type of Pastoral Visit _x__ Initial Visit ___ Follow-up Visit ___ On-call Visit ___ General Patient Visit ___ Spiritual Assessment ___ Family Conference ___ Bereavement ___ Rapid Response ___ Code Blue ___ Other (describe below) Pastoral Care Referral From _x__ Patient ___ Family ___ Nurse ___ Physician ___ Community Health Agent ___ Strategic Accounts Manager ___ Other (describe below) Sacrament/Intervention _x__ Active listening ___ Anointing ___ Denominational ___ Bereavement ___ Communion ___ Tram exploration ___ ___ Life review _x__ Prayer ___ Reconciliation ___ Sacrament of Sick _x__ Supportive presence ___ Wedding ___ Other (describe below) Pastoral Comments patient reports that she is doing fine; spouse is in the room and states well she isn't fine or she wouldn't be in the hospital; pt reiterates that she is fine for the situation; asked about coping and how her health has been over the recent years, the patient declares It is just one day at a time; pt states that a prayer would be fine, but I am a Episcopal that doesn't practice Catholicism; offer of support to spouse as well
[2025-04-19 14:00] VITALS: BP 98/65; PULSE 82; RESP 15; TEMP 36.6; O2SAT 96
--- NOTE | 2025-04-19 14:16 | PCM.CONS.R ---
Assessment & Plan Assessment/Plan (1) MIGDALIA (acute kidney injury): PLAN: Baseline creatinine around 0.9, admission creatinine 1.9. Urine analysis fairly benign, 1+ protein but otherwise negative. Urine albumin creatinine ratio is not significantly elevated. Will check a serum protein electrophoresis. Renal ultrasound without any hydronephrosis, 3 to 4 mm stones which should not cause any symptoms. At this time it appears that she may have prerenal versus ATN. Blood pressure is fairly low which is likely contributing to above. Etiology of hypotension unclear. Cortisol level was okay, TSH was okay recently. She denies any symptoms suggestive of volume loss. Continue IV fluids for now. Creatinine is better today. If creatinine is better further tomorrow, can be discharged and have her follow-up with primary sales operations coordinator. Anemia. Iron saturations were low before but recently iron saturations were okay. No need for blood transfusion since hemoglobin is 7 or more. Can follow-up as outpatient. Discussed with family at bedside Discussed with hospitalist HPI Consult Data Date of Consult: 04/19/25 HPI Narrative Reason for Consultation: Acute renal failure HPI Narrative: TOMAS BONILLA, is a 64 F who presents to the hospital with acute renal failure. Nephrology on consult for the same. She follows with nephrology at [facility]. Remote history of acute renal failure requiring dialysis for about 2 months, that was about 2 or 3 years ago. This was in the setting of septic shock. Eventually recovered renal function. Baseline creatinine around 0.9-1.0. Apparently had a right knee replacement and postoperative course was complicated by severe loss of appetite, apparently she lost about 40 pounds about that same time. Now she is recovering, appetite is improved somewhat. Weight is picking up. Routine lab work showed elevated creatinine at 1.9 hence she was referred to the emergency room. She has some denies any complaints right now. Denies any nausea, vomiting, diarrhea, constipation, dysuria, hematuria, shortness of breath, hemoptysis, skin rash. She does take multiple pain medications including opioids and Flexeril but she denies taking any ibuprofen/Advil/NSAIDs Denies taking any [id number] medications Blood pressure is on the lower side, systolic is barely about 95. She did have a cortisol level which was normal about 2 months ago. Denies any dizziness standing up [facility] Medical History Vision loss, bilateral Traumatic brain injury GERD (gastroesophageal reflux disease) Pure hypercholesterolemia Vitamin D deficiency B12 deficiency History of iron deficiency anemia Seizure disorder Diabetes mellitus, type 2 TIA (transient ischemic attack) Depression Essential hypertension Branch retinal vein occlusion of both eyes Acute blood loss anemia Unspecified intestinal obstruction Osteoporosis Insomnia Arthritis Glaucoma Chronic anemia Peptic ulcer disease Anxiety Hypothyroidism Migraine Home Medications ?Medication ?Instructions ?Recorded ?Last Taken ?Type levothyroxine 50 mcg tablet 50 mcg PO DAILY thyroid 07/24/13 04/17/25 05:00 History pantoprazole 40 mg tablet,delayed 40 mg PO BID stomach 07/24/13 04/18/25 05:00 History release latanoprost 0.005 % eye drops 1 drp EACH EYE QHS eye health 12/16/15 04/18/25 19:00 History rizatriptan 10 mg disintegrating 10 mg PO DAILY PRN PRN headache 12/16/15 04/11/25 History tablet cholecalciferol (vitamin D3) 25 50,000 unit PO FR supplement 12/30/17 08/23/21 History mcg (1,000 unit) tablet dorzolamide (PF) 2 % (PF) eye drops 1 drp EACH EYE BID eye health 08/23/21 04/18/25 05:00 History folic acid 1 mg tablet 1 mg PO DAILY supplement 08/23/21 04/18/25 05:00 History lorazepam 0.5 mg tablet 0.5 mg PO Q8H PRN Anxiety 08/23/21 04/18/25 19:00 History metformin 500 mg tablet 500 mg PO DAILY BS 08/23/21 04/18/25 05:00 History topiramate 100 mg tablet 100 mg PO DAILY migraine 08/23/21 04/18/25 05:00 History venlafaxine 75 mg tablet 75 mg PO DAILY@1700 mood 08/23/21 08/23/21 History atorvastatin 20 mg tablet 20 mg PO QHS cholesterol 04/19/23 Unknown History topiramate 100 mg tablet (Topamax) 300 mg PO QHS migraine 12/25/24 04/17/25 19:00 History venlafaxine 75 mg tablet 112.5 mg PO BID@0800,1200 mood 12/25/24 Unknown History ascorbic acid (vitamin C) 500 mg 500 mg PO LUNCH vitamin #30 tabs 05/22/25 09/02/25 12:00 Rx tablet 500 mg aspirin 81 mg tablet,delayed 81 mg PO BID dvt prophylaxis #1 TAB 01/04/25 04/17/25 19:00 Rx release 81 mg cyclobenzaprine 5 mg tablet 5 mg PO TID PRN Spasms #21 tabs 01/04/25 04/18/25 06:00 Rx 5 mg gabapentin 600 mg tablet 600 mg PO TID nerve pain #90 tabs 01/04/25 04/18/25 05:00 Rx ondansetron 4 mg disintegrating 4 mg PO Q8H PRN PRN nausea #10 tabs 01/04/25 Unknown Rx tablet oxycodone 5 mg tablet 5 mg PO Q6H PRN PRN Pain Score 01/04/25 Unknown Rx pain 4-10 1 week #28 tabs polyethylene glycol 3350 17 17 g PO DAILY PRN PRN constipation 01/04/25 Unknown Rx gram/dose oral powder (Miralax) #1 g sennosides 8.6 mg-docusate sodium 2 tab PO BID laxative #120 tabs 01/04/25 Unknown Rx 50 mg tablet (Stimulant Laxative Plus) trazodone 150 mg tablet 150 mg PO QHS sleep #30 tabs 01/05/25 04/17/25 19:00 Rx acetaminophen 500 mg tablet 1,000 mg PO PRN pain 04/18/25 Unknown History brexpiprazole 1 mg tablet (Rexulti) 1 mg PO DAILY depression 04/18/25 04/17/25 19:00 History brimonidine 0.2 % eye drops 1 drp ophthalmic (eye) Q12.TCU 04/18/25 04/18/25 05:00 History glaucoma ferrous sulfate 325 mg (65 mg 325 mg PO QHS supplement 04/18/25 04/17/25 07:00 History iron) tablet (FeroSul) multivitamin 1 tab PO DAILY supplement 04/18/25 04/18/25 05:00 History Allergy/AdvReac Type Severity Reaction Status Date / Time No Known Allergies Allergy Verified 04/18/25 16:03 Family History Sister Asthma Diabetes Hypertension High cholesterol Osteoporosis Mother Diabetes High cholesterol Hypertension Osteoporosis Thyroid disorder Skin cancer Brother Diabetes Hypertension High cholesterol Father Heart disease Hypertension CVA (cerebral vascular accident) Surgical History History of total knee arthroplasty History of hysterectomy History of lumpectomy of right breast History of tubal ligation History of gastric bypass History of esophagogastroduodenoscopy (EGD) (2016) History of laparoscopic cholecystectomy Social History household members: spouse housing: house number of children: 4 Smoking Status: Never smoker alcohol intake: never substance use type: does not use ROS ROS Narrative Negative except above Physical Exam Narrative Alert awake oriented x 3 no obvious distress no pallor no icterus no JVD s1s2 no murmurs lungs clear abdomen soft no organomegaly no edema Lab / Micro Data 04/19/25 06:26 04/19/25 06:26 Labs: Laboratory Results - last 24 hr 04/18/25 16:20: WBC 4.8, RBC 2.93 L, Hgb 8.9 L, Hct 27.9 L, MCV 95.2, MCH 30.4, MCHC 31.9 L, RDW Std Deviation 57.9 H, RDW Coeff of Lobo 16.3 H, Plt Count 244, MPV 10.0, Immature Gran % (Auto) 0.200, Neut % (Auto) 69.6, Lymph % (Auto) 20.0, Phillips % (Auto) 6.5, Eos % (Auto) 2.9, Baso % (Auto) 0.8, Absolute Neuts (auto) 3.3, Absolute Lymphs (auto) 0.95, Nucleated RBC % 0, Sodium 143, Potassium 3.4, Chloride 111 H, Carbon Dioxide 16.8 L, Anion Gap 15, BUN 29 H, Creatinine 1.97 H, Estim Creat Clear Calc 21.81 L, Est GFR (MDRD) Non-Af 28 L, BUN/Creatinine Ratio 14.7, Glucose 111 H, Calcium 8.6 04/18/25 16:44: Urine Color Yellow, Urine Clarity Clear, Urine pH 5.0, Ur Specific Alex 1.020, Urine Protein 30 H, Urine Glucose (UA) Normal, Urine Ketones Negative, Urine Occult Blood Negative, Urine Nitrite Negative, Urine Bilirubin Negative, Urine Urobilinogen Normal, Ur Leukocyte Esterase Negative, Urine RBC 0-5 SEEN, Urine WBC 0-5 SEEN, Ur Squamous Epith Cells 0-5 SEEN, Urine Bacteria 0 SEEN, Urine Mucus 0 SEEN 04/18/25 21:00: Urine Osmolality 400, Ur Random Microalbumin 20.8, Ur Random Sodium 104, Urine Creatinine 57.40, Microalb/Creat Ratio 36.2 H, Urine Potassium 20.4, Urine Chloride 107, Urine Urea Nitrogen 303 04/19/25 06:26: WBC 3.1 L, RBC 2.67 L, Hgb 8.3 L, Hct 25.1 L, MCV 94.0, MCH 31.1, MCHC 33.1, RDW Std Deviation 56.6 H, RDW Coeff of Lobo 16.2 H, Plt Count 216, MPV 10.0, Immature Gran % (Auto) 0.300, Neut % (Auto) 49.9, Lymph % (Auto) 35.3, Phillips % (Auto) 9.4, Eos % (Auto) 4.5, Baso % (Auto) 0.6, Absolute Neuts (auto) 1.5 L, Absolute Lymphs (auto) 1.09, Nucleated RBC % 0, Retic Count 0.57, Immature Retic Fraction 13.40, Retic Hgb Equivalent 33.0, Sodium 142, Potassium 3.8, Chloride 114 H, Carbon Dioxide 18.1 L, Anion Gap 11, BUN 28 H, Creatinine 1.64 H, Estim Creat Clear Calc 25.81 L, Est GFR (MDRD) Non-Af 35 L, BUN/Creatinine Ratio 17.3, Glucose 80, Calcium 8.4, Magnesium 1.8, Iron 69, TIBC 132 L, Iron Saturation 52.3, Unsaturated IBC 63 L, Ferritin 193, Vitamin B12 380, POC Glucose 79 04/19/25 11:10: POC Glucose 139 H Imaging Radiology Impression Chest X-Ray 04/18/25 16:54 IMPRESSION: No evidence of acute cardiopulmonary disease. Reading Location: [id number] Renal Ultrasound 04/18/25 20:03 IMPRESSION: No hydronephrosis. 3 mm and 4 mm nonobstructive stones within the right kidney. Reading Location: [facility] Echocardiogram 04/19/25 09:38 Interpretation Summary The estimated ejection fraction is 55 %. Trivial aortic valve insufficiency. Ordering Physician: Cb^Mp^^^ Performed By: Cortez Herman, ANGELINA
[2025-04-19 20:00] VITALS: RESP 15
[2025-04-19 20:10] VITALS: BP 107/70; PULSE 100; RESP 15; TEMP 37.1; O2SAT 98
[2025-04-19] MEDS: Latanoprost 0.005% 1 Bottle 1 DRP EACH EYE (20:30)
[2025-04-20 02:00] VITALS: RESP 15
[2025-04-20 04:14] VITALS: BP 107/70; PULSE 78; RESP 15; TEMP 37.2; O2SAT 98
[2025-04-20 07:23] VITALS: BP 136/94; PULSE 78; RESP 15; TEMP 36.6; O2SAT 100
[2025-04-20] MEDS: Dorzolamide 2% 10ml Bottle 1 DRP EACH EYE (07:27)
[2025-04-20] MEDS: BRIMONIDINE 0.2% 5ML BOTTLE 1 DRP OPHTHALMIC (07:28)
--- NOTE | 2025-04-20 07:37 | PCM.DC.SUM ---
Providers Date of Admission: 04/18/25 Date of Discharge: 04/20/25 Primary Care Physician: Dr. Angelo Ruggiero MD Consultations 04/18/25 20:17 Consult: Nephrology Routine Consulting Provider: James Burger Reason for Consult: migdalia, unclear etiology EMERGENT Consult: No MD Notified: Yes Date Notified: 04/19/25 Time Notified: 08:35 Method of Notification: Answering Service Reason For Visit: KIDNEY FAILURE Diagnosis Discharge Diagnosis (1) MIGDALIA (acute kidney injury): Status: Acute Code(s): N17.9 - Acute kidney failure, unspecified Plan Patient is a 64-year-old lady sent to the ED for worsening labs was found to have acute kidney injury 1. Acute kidney injury ? Patient admitted to regular nursing floor manage with IV fluids as part of her management renal ultrasound was ordered and consult placed to nephrology. Renal ultrasound demonstrated known hydronephrosis patient was found to have 3 and 4 mm nonobstructive stones in the right kidney ? 04/20/2025; patient creatinine had improved to 1.56 at the time of discharge plan is for patient to follow-up with nephrology as outpatient 2. Anemia ? Secondary to chronic disorder. Ordered iron studies. Monitoring H&H and transfuse if patient becomes symptomatic or hemoglobin falls below 7 3. Bipedal edema ? Ordered 2D echo for EF assessment 4. Hypothyroidism ? Patient is on levothyroxine home dose continued 5. Diabetes mellitus type II -patient's oral hypoglycemics held. Placed on Accu-Cheks a.c. and at bedtime and covered with sliding scale insulin 6. GERD -Continue PPI 7. Depression with anxiety ? continued patient home meds 9. Chronic migraines ? Patient is on Topamax 10. DVT prophylaxis ? Held off chemoprophylaxis given patient's significant anemia Time spent in the patient's overall evaluation,decision-making process, review of diagnostic data, adjustment of management, discussion with other providers, patient and family, nursing nursing and ancillary staff involved in patient's care documentation, 35 minutes minutes Medications at Discharge Home Medications levothyroxine 50 mcg tablet 50 mcg PO DAILY thyroid 07/24/13 pantoprazole 40 mg tablet,delayed release 40 mg PO BID stomach 07/24/13 latanoprost 0.005 % eye drops 1 drp EACH EYE [facility] eye health 12/16/15 rizatriptan 10 mg disintegrating tablet 10 mg PO DAILY PRN PRN headache 12/16/15 cholecalciferol (vitamin D3) 25 mcg (1,000 unit) tablet 50,000 unit PO FR supplement 12/30/17 dorzolamide (PF) 2 % (PF) eye drops 1 drp EACH EYE BID eye health 08/23/21 folic acid 1 mg tablet 1 mg PO DAILY supplement 08/23/21 lorazepam 0.5 mg tablet 0.5 mg PO Q8H PRN Anxiety 08/23/21 metformin 500 mg tablet 500 mg PO DAILY BS 08/23/21 topiramate 100 mg tablet 100 mg PO DAILY migraine 08/23/21 venlafaxine 75 mg tablet 75 mg PO DAILY@1700 mood 08/23/21 atorvastatin 20 mg tablet 20 mg PO QHS cholesterol 04/19/23 topiramate 100 mg tablet (Topamax) 300 mg PO QHS migraine 12/25/24 venlafaxine 75 mg tablet 112.5 mg PO BID@0800,1200 mood 12/25/24 ascorbic acid (vitamin C) 500 mg tablet 500 mg PO LUNCH vitamin #30 tabs 01/04/25 aspirin 81 mg tablet,delayed release 81 mg PO BID dvt prophylaxis #1 TAB 01/04/25 cyclobenzaprine 5 mg tablet 5 mg PO TID PRN Spasms #21 tabs 01/04/25 gabapentin 600 mg tablet 600 mg PO TID nerve pain #90 tabs 01/04/25 ondansetron 4 mg disintegrating tablet 4 mg PO Q8H PRN PRN nausea #10 tabs 01/04/25 oxycodone 5 mg tablet 5 mg PO Q6H PRN PRN Pain Score pain 4-10 1 week #28 tabs 01/04/25 polyethylene glycol 3350 17 gram/dose oral powder (Miralax) 17 g PO DAILY PRN PRN constipation #1 g 01/04/25 sennosides 8.6 mg-docusate sodium 50 mg tablet (Stimulant Laxative Plus) 2 tab PO BID laxative #120 tabs 01/04/25 trazodone 150 mg tablet 150 mg PO QHS sleep #30 tabs 01/05/25 acetaminophen 500 mg tablet 1,000 mg PO PRN pain 04/18/25 brexpiprazole 1 mg tablet (Rexulti) 1 mg PO DAILY depression 04/18/25 brimonidine 0.2 % eye drops 1 drp ophthalmic (eye) Q12.TCU glaucoma 04/18/25 ferrous sulfate 325 mg (65 mg iron) tablet (FeroSul) 325 mg PO QHS supplement 04/18/25 multivitamin 1 tab PO DAILY supplement 04/18/25 Physical Exam Narrative GENERAL: cooperative HEENT: Atraumatic; normocephalic EYES; Anicteric, Normal Conjunctiva NECK; supple, normal thyroid, RESPIRATORY: Diminished to auscultation CARDIOVASCULAR: Regular S1 S2, GI: soft, normoactive bowel sounds, : No Renal angle tenderness; EXTREMITIES: Edema of both lower extremity R>L MUSCULOSKELETAL: no muscle wasting NEURO: Awake; no lateralizing signs. SKIN: No Rash PSYCH; Flat affect Medical Records Data Medical Nutrition Assessment Dietitian: Malnutrition Criteria Met Start: 04/19/25 15:40 Freq: Status: Active Protocol: Document 04/19/25 15:40 MD (Rec: 04/19/25 15:40 MD [id number]) Nutrition Malnutrition Evidence of Yes Malnutrition Exists Malnutrition (severe Chronic ): Evidenced By Suboptimal Energy Intake (Severe),Weight Loss (Severe) Clinical Problem Chronic Disease or Condition Related Malnutrition Etiology related to inadequate oral intake Signs/Symptoms evidenced by weight loss of 27.5% of body weight x 4 months, energy intake <50% x >3 months. Status Active Problem Recommendation Dietitian Continue current diet order due to MIGDALIA Recommendations/ Order davis Nepro once daily to provide additional 420 Changes kcal and 19 g protein per 240mL serving Weight / BMI Weight Weight: 54 kg Body Mass Index (BMI) 22.2 ABG / Lab / Microbiology Data 04/20/25 07:05 04/20/25 07:05 Laboratory: Laboratory Results - last 24 hr 04/19/25 06:26: Retic Count 0.57, Immature Retic Fraction 13.40, Retic Hgb Equivalent 33.0, Iron 69, TIBC 132 L, Iron Saturation 52.3, Unsaturated IBC 63 L, Ferritin 193, Vitamin B12 380 04/19/25 11:10: POC Glucose 139 H 04/19/25 16:42: POC Glucose 101 04/20/25 06:52: POC Glucose 87 04/20/25 07:05: WBC 3.7 L, RBC 2.89 L, Hgb 8.7 L, Hct 28.2 L, MCV 97.6, MCH 30.1, MCHC 30.9 L D, RDW Std Deviation 58.6 H, RDW Coeff of Lobo 16.5 H, Plt Count 217, MPV 10.3, Sodium 142, Potassium 3.9, Chloride 114 H, Carbon Dioxide 15.8 L, Anion Gap 12, BUN 29 H, Creatinine 1.56 H, Estim Creat Clear Calc 28.44 L, Est GFR (MDRD) Non-Af 37 L, BUN/Creatinine Ratio 18.6, Glucose 96, Calcium 8.7, Phosphorus 3.7, Magnesium 2.1 Radiography Diagnostic Testing: Radiology Impression Echocardiogram 04/19/25 09:38 Interpretation Summary The estimated ejection fraction is 55 %. Trivial aortic valve insufficiency. Ordering Physician: Cb^Mp^^^ Performed By: Cortez Herman RCS D/C Instructions DC O2, CPAP, BIPAP Needs Home O2 Discharge instructions: No Meaningful Use Info Meaningful Use Meaningful Use Diagnoses (Choose all that apply): None applicable Discharge Plan Admission Admit Date/Time: 04/18/25 18:38 Attending Provider: Mp Vivar Primary Care Provider: Angelo Ruggiero Consulting Providers: Carolina Medrano; James Burger Discharge Orders/Prescriptions Prescriptions: Continued levothyroxine 50 MCG tablet 50 mcg PO DAILY Patient Comments: THYROID pantoprazole 40 MG tablet 40 mg PO BID Patient Comments: ACID REFLUX latanoprost 1 DROP bottle 1 drp EACH EYE QHS Patient Comments: EYE DROPS rizatriptan 10 MG tablet,disintegrating 10 mg PO DAILY PRN PRN (Reason: headache) Patient Comments: can repeat 1 time in 2 hours PRN, no more than 2 doses in a 24 hour period cholecalciferol (vitamin D3) 1,000 unit tablet 50,000 unit PO FR Patient Comments: SUPPLEMENT metformin 500 mg Tablet 500 mg PO DAILY venlafaxine 75 mg Tablet 75 mg PO DAILY@1700 lorazepam 0.5 mg Tablet 0.5 mg PO Q8H PRN (Reason: Anxiety) folic acid 1 mg Tablet 1 mg PO DAILY topiramate 100 mg Tablet 100 mg PO DAILY dorzolamide (PF) 2 % Drops 1 drp EACH EYE BID atorvastatin 20 mg tablet 20 mg PO QHS venlafaxine 75 mg tablet 112.5 mg PO BID@0800,1200 topiramate [Topamax] 100 mg tablet 300 mg PO QHS gabapentin 600 mg Tablet 600 mg PO TID Qty: 90 0RF ascorbic acid (vitamin C) 500 mg Tablet 500 mg PO LUNCH Qty: 30 0RF sennosides-docusate sodium [Stimulant Laxative Plus] 8.6-50 mg Tablet 2 tab PO BID Qty: 120 0RF ondansetron 4 mg Tablet,Disintegrating 4 mg PO Q8H PRN PRN (Reason: nausea) Qty: 10 0RF oxycodone 5 mg Tablet 5 mg PO Q6H PRN PRN (Reason: Pain Score pain 4-10) 7 Days Qty: 28 0RF aspirin 81 mg tablet,delayed release (DR/EC) 81 mg PO BID Qty: 1 0RF Rx Instructions: Take this until the orthopedic surgeon tells you to stop. Usually people take it for 1 month after a knee replacement. polyethylene glycol 3350 [Miralax] 17 gram/dose powder 17 g PO DAILY PRN PRN (Reason: constipation) Qty: 1 0RF Rx Instructions: If you find you are getting constipated again start taking this once a day. cyclobenzaprine 5 mg Tablet 5 mg PO TID PRN (Reason: Spasms) Qty: 21 0RF trazodone 150 mg tablet 150 mg PO QHS Qty: 30 0RF Rexulti 1 mg tablet 1 mg PO DAILY brimonidine 0.2 % drops 1 drp ophthalmic (eye) Q12.TCU multivitamin Tablet 1 tab PO DAILY acetaminophen 500 mg Tablet 1,000 mg PO PRN ferrous sulfate [FeroSul] 325 mg (65 mg iron) Tablet 325 mg PO QHS Referrals / Follow Up: Angelo Ruggiero MD [Primary Care Provider] - In 1 Week (For repeat BMP) James Burger MD [Med Staff - Consulting] - Within 2 Weeks Rashmi Salinas, DO [[facility]] - Disposition Disposition (needs filled in before D/C Order can be placed): Home, Self Care Charges/Coding Visit Charges Inpatient E&M: 03981 Disch Hosp >30min
[2025-04-20 08:02] LABS: Hematocrit 28.2 % (37-47); Hemoglobin 8.7 g/dL (12.0-15.0); Mean Corp Hgb Conc 30.9 g/dL (32-36); Mean Corpuscular Volume 97.6 fL (81-99); Mean Platelet Vol. 10.3 fl (6.2-12.0); Platelet Count 217 K/mm3 (150-450); RBC Distribution Width CV 16.5 % (11.6-14.6); RBC Distribution Width SD 58.6 fl (35.1-43.9); Red Blood Count 2.89 M/mm3 (4.2-5.4); White Blood Count 3.7 K/mm3 (4.4-11.0)
[2025-04-20 08:46] LABS: Anion Gap 12 (5-15); BUN 29 mg/dL (4-19); BUN/Creat Ratio 18.6 RATIO (10-20); Calcium,Total 8.7 mg/dL (7.6-11.0); Carbon Dioxide 15.8 mmol/L (21.0-32.0); Chloride 114 mmol/L (98-108); Estimated Creatinine Clearance 28.44 ml/min (50-250); Glucose 96 mg/dL (70-99); Magnesium 2.1 mg/dL (1.5-2.2); Potassium 3.9 mmol/L (3.3-5.1)
--- NOTE | 2025-04-20 10:37 | PHA.DC.MR.R ---
Pharmacy [place] Med Reconciliation Pharmacy Service has performed discharge medication reconciliation for this patient. The patient's discharge medication list was reviewed for discrepancies and discrepancies were resolved. Medications at Discharge Home Medications levothyroxine 50 mcg tablet 50 mcg PO DAILY thyroid 07/24/13 pantoprazole 40 mg tablet,delayed release 40 mg PO BID stomach 07/24/13 latanoprost 0.005 % eye drops 1 drp EACH EYE QHS eye health 12/16/15 rizatriptan 10 mg disintegrating tablet 10 mg PO DAILY PRN PRN headache 12/16/15 cholecalciferol (vitamin D3) 25 mcg (1,000 unit) tablet 50,000 unit PO FR supplement 12/30/17 dorzolamide (PF) 2 % (PF) eye drops 1 drp EACH EYE BID eye health 08/23/21 folic acid 1 mg tablet 1 mg PO DAILY supplement 08/23/21 lorazepam 0.5 mg tablet 0.5 mg PO Q8H PRN Anxiety 08/23/21 metformin 500 mg tablet 500 mg PO DAILY BS 08/23/21 topiramate 100 mg tablet 100 mg PO DAILY migraine 08/23/21 venlafaxine 75 mg tablet 75 mg PO DAILY@1700 mood 08/23/21 atorvastatin 20 mg tablet 20 mg PO QHS cholesterol 04/19/23 topiramate 100 mg tablet (Topamax) 300 mg PO QHS migraine 12/25/24 venlafaxine 75 mg tablet 112.5 mg PO BID@0800,1200 mood 12/25/24 ascorbic acid (vitamin C) 500 mg tablet 500 mg PO LUNCH vitamin #30 tabs 01/04/25 aspirin 81 mg tablet,delayed release 81 mg PO BID dvt prophylaxis #1 TAB 01/04/25 cyclobenzaprine 5 mg tablet 5 mg PO TID PRN Spasms #21 tabs 01/04/25 gabapentin 600 mg tablet 600 mg PO TID nerve pain #90 tabs 01/04/25 ondansetron 4 mg disintegrating tablet 4 mg PO Q8H PRN PRN nausea #10 tabs 01/04/25 oxycodone 5 mg tablet 5 mg PO Q6H PRN PRN Pain Score pain 4-10 1 week #28 tabs 01/04/25 polyethylene glycol 3350 17 gram/dose oral powder (Miralax) 17 g PO DAILY PRN PRN constipation #1 g 01/04/25 sennosides 8.6 mg-docusate sodium 50 mg tablet (Stimulant Laxative Plus) 2 tab PO BID laxative #120 tabs 01/04/25 trazodone 150 mg tablet 150 mg PO QHS sleep #30 tabs 01/05/25 acetaminophen 500 mg tablet 1,000 mg PO PRN pain 04/18/25 brexpiprazole 1 mg tablet (Rexulti) 1 mg PO DAILY depression 04/18/25 brimonidine 0.2 % eye drops 1 drp ophthalmic (eye) Q12.TCU glaucoma 04/18/25 ferrous sulfate 325 mg (65 mg iron) tablet (FeroSul) 325 mg PO QHS supplement 04/18/25 multivitamin 1 tab PO DAILY supplement 04/18/25
[2025-04-26 09:08] LABS: PROEL- TOTAL PROTEIN 5.6 g/dL (6.0-8.5)
== END 2025-04-20 11:00 | disposition home or self-care (01) | DRG 682 ==
LOC: ED 17:53 → MS3 18:10
PROVIDERS: Internal Medicine Nephrology; Admitting Provider Internal Medicine; Emergency Provider Emergency Medicine; PCP Family Medicine; Visit Provider Internal Medicine
DX: N17.9 Acute kidney failure, unspecified (principal); E43 Unspecified severe protein-calorie malnutrition; Z68.1 Body mass index [BMI] 19.9 or less, adult; E11.9 Type 2 diabetes mellitus without complications; D63.8 Anemia in other chronic diseases classified elsewhere; I10 Essential (primary) hypertension; F32.A Depression, unspecified; E03.9 Hypothyroidism, unspecified; E78.00 Pure hypercholesterolemia, unspecified; K21.9 Gastro-esophageal reflux disease without esophagitis; G43.709 Chronic migraine without aura, not intractable, without status migrainosus; F41.9 Anxiety disorder, unspecified; Z90.710 Acquired absence of both cervix and uterus; Z79.84 Long term (current) use of oral hypoglycemic drugs; Z86.73 Personal history of transient ischemic attack (TIA), and cerebral infarction without residual deficits; Z79.890 Hormone replacement therapy; Z79.899 Other long term (current) drug therapy; Z96.659 Presence of unspecified artificial knee joint; Z98.51 Tubal ligation status; Z90.49 Acquired absence of other specified parts of digestive tract; R60.9 Edema, unspecified
CPT/HCPCS: 36415; 71045; 76770; 80048; 81001; 82043; 82436; 82570; 82607; 82728; 82784; 82962; 83540; 83550; 83735; 83935; 84100; 84133; 84165; 84300; 84540; 85025; 85027; 85045; 86334; 93005; 93306; 97802; 99284; A4216